=== PATIENT | male | born 1960 | race Caucasian/White ===

== ENCOUNTER 2022-02-06 20:04 | Inpatient (IN) ==
[~2022-02-06 20:04] MED LIST: ETOMIDATE 2 MG/ML 20 ML VIAL IV ONE; ROCURONIUM BROMIDE 10 MG/ML 5 ML VIAL IV ONE
[2022-02-06] MEDS ORDERED: CALCIUM GLUCONATE 1000 MG/60 ML NSS IV ONE (20:10)
[2022-02-06] MEDS ORDERED: SODIUM CHLORIDE 0.9% 1000ML 2,000 ML IV ONE (20:11)
[2022-02-06] MEDS ORDERED: CALCIUM GLUCONATE 1,000 MG/60 ML BAG IV STA (20:12)
[2022-02-06] MEDS ORDERED: INSULIN HUMAN REGULAR PER UNIT 10 UNITS in SYRINGE 9.9 ML IV STA (20:18)
[2022-02-06] MEDS ORDERED: ALBUTEROL 0.5% NEB SOLN 2.5 MG/0.5 ML VIAL NEB STA (20:18)
[2022-02-06] MEDS ORDERED: SODIUM BICARBONATE 8.4% 150 MEQ in DEXTROSE 5% 1,000 ML IV STA (20:18)
[2022-02-06] MEDS ORDERED: SODIUM BICARB 8.4% INJ 50 MEQ/50 ML SYR IV ONE (20:25)
[2022-02-06] MEDS ORDERED: LORazepam 2 MG/1 ML VIAL IV STA (20:28)
[2022-02-06 20:33] LABS: iSTAT Arterial Blood Gas HCO3 3 meg/L (19-24); iSTAT Arterial Blood Gas pCO2 13 mmHg (35-46); iSTAT Arterial Blood Gas pO2 137 mmHg (80-95); iSTAT Carbon Dioxide < 5 mmol/L (24-31); iSTAT Hematocrit 30 % (42-52); iSTAT Hemoglobin 10.2 g/dl (14.0-18.0); iSTAT Potassium 7.2 mmol/L (3.3-5.0); iSTAT Sodium 120 mmol/L (135-144)
[2022-02-06] MEDS ORDERED: NovoLIN-R INSULIN PER UNIT CHARGE ONE (20:55)
[2022-02-06 21:02] LABS: iSTAT Blood Urea Nitrogen 82 mg/dl (7-18); iSTAT Carbon Dioxide 8 mmol/L (24-31); iSTAT Chloride 98 mmol/L (101-112); iSTAT Creatinine 3.9 mg/dl (0.6-1.3); iSTAT Glucose > 700 mg/dl (70-99); iSTAT Hematocrit 23 % (42-52); iSTAT Hemoglobin 7.8 g/dl (14.0-18.0); iSTAT Potassium 6.4 mmol/L (3.3-5.0); iSTAT Sodium 128 mmol/L (135-144)
[2022-02-06 21:02] LABS: iSTAT Arterial Blood Gas HCO3 6 meg/L (19-24); iSTAT Arterial Blood Gas pCO2 24 mmHg (35-46); iSTAT Arterial Blood Gas pH 6.98 (7.35-7.45); iSTAT Arterial Blood Gas pO2 89 mmHg (80-95); iSTAT Carbon Dioxide 6 mmol/L (24-31); iSTAT Hematocrit 25 % (42-52); iSTAT Hemoglobin 8.5 g/dl (14.0-18.0); iSTAT Potassium 6.2 mmol/L (3.3-5.0); iSTAT Sodium 127 mmol/L (135-144)
[2022-02-06] MEDS ORDERED: NOREPINEPHRINE/D5W 8 MG/508 ML IV ONE (21:02)
[2022-02-06] MEDS ORDERED: OCTREOTIDE ACETATE 100 MCG in SYRINGE 9 ML IV STA (21:27)
[2022-02-06] MEDS ORDERED: STAT IV STA (21:27)
[2022-02-06] MEDS ORDERED: NORMOSOL-R 1,000 ML IV ONE (21:34)
[2022-02-06] MEDS ORDERED: STAT IV Infusion **Titration per Protocol STA ×3 (21:37→22:57)
[2022-02-06 21:42] LABS: Hemoglobin 8.8 g/dL (14.0-18.0); Mean Corpuscular Hgb Conc 32.6 g/dL (32-36); Mean Corpuscular Volume 98.2 fL (80-100); Mean Platelet Volume 11.2 fL (7.4-10.4); Platelet Count 246 K/uL (130-400); RDW Coefficient of Variation 13.4 % (11.5-14.5); RDW Standard Deviation 47.8 fL (36.4-46.3); Red Blood Count 2.75 M/uL (4.7-6.1); White Blood Count 23.42 K/uL (4.8-10.8)
--- NOTE | 2022-02-06 21:44 | History & Physical Report ---
Date of Service February 06, 2022 Assessment & Plan (1) GI bleed: (2) Metabolic encephalopathy: (3) Metabolic acidosis: (4) Type 2 diabetes mellitus: (5) Hyperosmolar hyperglycemic state (HHS): (6) Hypocalcemia: (7) Hyperkalemia: (8) Ventricular arrhythmia: (9) Septic shock: (10) Anemia: (11) Hypothermia: (12) TOD (acute kidney injury): (13) Acute respiratory failure with hypoxia: Plan: Assessment: 61 yo M Hx DM2 admitted for severe hypotension, septic shock, HHS, metabolic acidosis and encephalopathy, TOD, hyperkalemia, and concern for acute GIB. Plan: Neuro: Metabolic encephalopathy: On admission with decreased mentation, inability to protect airway. In the setting of HHS, undifferentiated shock, hyperammonemia. Lactulose 30 g PO x1 ordered, with repeat ammonia with a.m. labs. Care of HHS and shock as described below. CT head with evidence of chronic small vessel disease without evidence of intracranial hemorrhage or acute CVA. Ethyl alcohol, salicylate, and acetaminophen levels negative. Chronic pain: History of chronic back pain with scheduled and as needed use of oxycodone ER and IR. Resp: Acute hypoxic respiratory failure: Secondary to obtundation and inability to protect airway. Currently intubated. CT chest without contrast without evidence of pneumothorax or pleural effusion. Atelectasis and central bronchial thickening bilaterally suggest bronchitis. Cardiovascular: Wide-complex ventricular arrhythmia: On arrival to ER was noted to have wide-complex tachycardia on telemetry which was then confirmed on EKG. In the setting of significant hyperkalemia and metabolic acidosis. Treatment as such as described. Troponin 70084; continue to trend q6h. Echo ordered for AM. Fluids/Renal: TOD: Admission creatinine 3.29. In the setting of hypovolemia, HHS. Normosol for fluid repletion. Serial BMPs ordered. Blevins in place to measure strict intake and output. Hyperkalemia: Presenting potassium POC of 7.2. S/p insulin 10u IV, albuterol neb, calcium gluconate, bicarb gtt. Repeat K 4.9. Continue fluid repletion with Normosol. Serial EKGs and BMPs with potassium correction as necessary. Hypocalcemia: Ionized calcium 1.10. Status post calcium gluconate 1g IV x1. Serial BMP with repletion as necessary. GI/Nutrition: Acute GI bleed: With at least 1 episode of coffee-ground emesis earlier today per patient's friend. Patient with a history of alcohol use though no reported history of abuse. Hgb 8.8. Type and screen ordered. Transfuse if Hgb <7. Protonix and octreotide gtt started. Serial CBCs. GI consulted; appreciate recommendations. Endocrine: HHS: Presented with BSG >700, severe metabolic acidosis, elevated serum osmolality. Received insulin regular 10 units x 1, and is now on insulin gtt. Normosol ordered at 125 cc/hr. will need fluid adjustment based on potassium levels and BSG checks. Per , patient is non-adherent with his diabetic regimen at home. Home regimen includes Lantus 25 units daily with sliding scale insulin. A1c pending. Hyperglycemia management by ICU and pharmacy. Patient will need diabetic education while admitted. ID: Septic shock, hypothermia: On admission noted to have WBC count of 23.42 with left shift, tachycardia, tachypnea, significant hypotension; meeting SIRS criteria for septic shock. Also presented as hypothermic to 33C; currently undergoing warming. No clear evidence of infection on exam or CT head, chest, abdomen, pelvis. COVID-19, RSV, influenza negative. MRSA swab pending. Lactate and procalcitonin elevated. TSH normal. Cortisol level pending. Will initiate empiric antibiotics at this time; vancomycin/Zosyn, with de- escalation as able. Continue Levophed to maintain MAP >65. Heme: Anemia: Admission hemoglobin 8.8 with normocytic MCV; unknown baseline. Suspect GI bleed as source; evaluation of such as described above. Type and screen ordered; transfuse if hemoglobin <7. Vascular access: PIV Code status: FULL CODE FEN: NPO DVT ppx: Contraindicated in the setting of suspected acute GIB Disposition: Care per ICU 30 minutes of extended care time was spent coordinating patient's care including review of patient chart, gaining collateral information from family, and discussion with ER and wire puller provider. History of Present Illness Chief Complaint: metabolic acidosis, DKA/HHS Primary Care Provider: NO PCP 61-year-old male with past medical history significant for DM2 with no other known history presented to the ER due to somnolence and malaise. History is given by patient's friend and personal as well as patient's over the phone. According to patient's friend, patient was in his usual state of health yesterday. Overnight, he started to feel woozy and dizzy and in the morning reported that he had had a fall and a black tarry emesis. BSG was not checked at home prior to EMS arrival. On arrival to the ER patient was noted to be hypotensive 60s/30s, tachycardic, tachypneic, hypothermic to 33 C and hypoxic initially requiring nasal cannula, and ultimately intubated. Initial POC lab work revealed pH 6.99, PCO2 13, PO2 137, HCO3 3.2, sodium 120, K 7.2, BSG >700, hemoglobin 10.2. Patient received 1 L NSS, calcium gluconate 1g IV, albuterol 10 mg nebulizer x1, 10 units regular insulin, and 3 amps of bicarb and ulti mately bicarb drip. Type and screen ordered. ICU on-call provider made aware of patient. On my interview patient is intubated and therefore unable to provide any history. Repeat lab work with improvement in pH to ~7.1, K 4.9. Serum Hgb 8.8. Repeat vitals with BP 106/55. Patient's was able to describe that patient is "notoriously not good about using his insulin or controlling his sugars". His home regimen is Lantus 25 units daily with insulin sliding scale, which he often does not follow. He is also on atorvastatin for hyperlipidemia and extended release oxycodone for chronic pain. Allergies Allergy/AdvReac Type Severity Reaction Status Date / Time No Known Allergies Allergy Verified 02/06/22 21:32 Home Medications Medication Instructions Recorded Confirmed Type Medical Marijuana 1 dose DIRECTED PRN 02/06/22 02/06/22 History atorvastatin 10 mg tablet 0 mg PO DAILY 02/06/22 02/06/22 History coenzyme Q10 100 mg capsule 0 mg PO DAILY 02/06/22 02/06/22 History (CoQ-10) ibuprofen 200 mg tablet 400 - 600 mg PO DIRECTED PRN 02/06/22 02/06/22 History insulin glargine 100 unit/mL 0 unit SUBCUT DIRECTED 02/06/22 02/06/22 History subcutaneous solution (Lantus U-100 Insulin) insulin regular human 100 unit/mL 0 unit SUBCUT DIRECTED 02/06/22 02/06/22 History injection solution (Novolin R Regular U-100 Insulin) lisinopril 10 mg tablet 0 mg PO DAILY 02/06/22 02/06/22 History multivitamin 1 tab PO DAILY 02/06/22 02/06/22 History oxycodone 20 mg tablet,crush 20 mg PO BID PRN 02/06/22 02/06/22 History resistant,extended release 12 hr (OxyContin) pseudoephedrine HCl 120 mg 120 mg PO Q12H PRN 02/06/22 02/06/22 History tablet,extended release (Sudafed 12 Hour) quetiapine 25 mg tablet (Seroquel) 0 mg PO DAILY 02/06/22 02/06/22 History sertraline 25 mg tablet (Zoloft) 0 mg PO DAILY 02/06/22 02/06/22 History sildenafil 50 mg tablet (Viagra) 0 mg PO DAILY PRN 02/06/22 02/06/22 History vitamin B complex 1 tab PO DAILY 02/06/22 02/06/22 History Past Med/Surg History Medical History Chronic pain HLD (hyperlipidemia) Type 2 diabetes mellitus Social History Smoking Status: Never smoker Do You Dip or Chew Tobacco: No; Hx Alcohol Use: Yes Alcohol type: hard liquor Hx Substance Use: Yes Last Used Substance Other:: months ago Substance Use Type Other:: medical Preferred Language: Mongolian Communication Ability: Effective Under Trimmer Required: No Beliefs That Will Affect Care: None Current Living Situation: Spouse Feels Safe at Home: Yes Safety Concerns: Feels Safe At This Time Assistive Devices: Glasses Review of Systems Review of Systems: Unobtainable due to endotracheal tube and Unobtainable due to reduced consciousness Physical Exam Constitutional: + ill appearing and + thin Eyes: PERRL, conjunctivae normal, anicteric sclerae ENMT: Noted to have [id number] material on teeth and in oropharynx Neck: Patient in c-collar Respiratory: intubated, tachypneic, rhonchi diffuse throughout Cardiovascular: regular rhythm, tachycardic, no murmurs Gastrointestinal (Abdomen): normal bowel sounds, soft, nontender, no hepatosplenomegaly Musculoskeletal: no cyanosis or clubbing Skin: no rashes, warm and dry Neurologic: moves all extremities Patient is intubated so unable to assess orientation Results & Data Results & Data ([facility]) Vital Signs (Past 12 Hours) Vital Signs Temp Pulse Pulse Resp BP Pulse Ox 02/06/22 21:30 116 H 30 H 106/55 L 100 02/06/22 21:24 113 H 30 H 92/50 L 100 02/06/22 21:23 113 H 30 H 92/53 L 100 02/06/22 21:22 112 H 30 H 90/53 L 100 02/06/22 21:20 111 H 20 86/50 L 100 02/06/22 21:18 109 H 20 80/51 L 100 02/06/22 21:16 108 H 20 78/49 L 02/06/22 21:15 108 H 21 02/06/22 21:14 107 H 26 H 77/47 L 100 02/06/22 21:12 106 H 25 H 67/41 L 100 02/06/22 21:11 103 H 20 71/43 L 02/06/22 21:10 105 H 12 70/47 L 02/06/22 21:08 107 H 12 71/45 L 02/06/22 21:06 107 H 12 75/49 L 02/06/22 21:05 103 H 12 68/50 L 02/06/22 21:04 99 H 12 67/36 L 02/06/22 21:03 104 H 12 63/45 L 02/06/22 21:01 105 H 24 68/40 L 02/06/22 21:00 104 H 28 H 02/06/22 20:45 109 H 26 H 72 L 02/06/22 20:30 108 H 25 H 02/06/22 20:28 110 H 25 H 97 02/06/22 20:26 111 H 26 H 85/46 L 02/06/22 20:10 33.4 C L 115 H 26 H 85/46 L 85 L 02/06/22 20:09 114 H 26 H 79/54 L Code Status & VTE Plan VTE Prophylaxis Plan VTE Prophylaxis will be ordered: No Supervising Physician Co-Signing Physician Notes Patient seen and examined, chart reviewed, case discussed with Dr. Nichols and I agree with the assessment and plan as above Resident Activity Tracking Resident Involvement: Resident Care Provided Care Provided: Adult Hospital Medicine
[2022-02-06 21:50] LABS: INR 1.1 (0.9-1.1); Partial Thromboplastin Ratio 1.1; Partial Thromboplastin Time 30.2 Seconds (21.0-31.0); Prothrombin Time 11.3 Seconds (9.0-12.0)
[2022-02-06] MEDS ORDERED: VANCOMYCIN CONSULT ACTIVE PRN (22:00)
[2022-02-06] MEDS ORDERED: VANCOMYCIN HCL 1,500 MG in SODIUM CHLORIDE 0.9% 500 ML IV ONE (22:00)
[2022-02-06] MEDS ORDERED: PIPERACILLIN/TAZOBACTAM 4.5 GM/120 ML BAG IV ONE (22:00)
[2022-02-06 22:01] LABS: Acetaminophen < 3 ug/ml (10-30); Salicylate < 3.0 mg/dl (3.0-30)
[2022-02-06] MEDS ORDERED: LACTULOSE SYRUP 30 GM/45 ML UDP PO STA (22:03)
[2022-02-06 22:09] LABS: Alanine Aminotransferase 25 U/L (7-52); Albumin Globulin Ratio 1.4 (0.9-2); Albumin Level 2.5 gm/dl (3.4-5.0); Alkaline Phosphatase 67 U/L (34-104); Anion Gap 30 (3-11); Aspartate Aminotransferase 52 U/L (13-39); BUN Creatinine Ratio 22.2 (10-20); Bilirubin,Total 0.3 mg/dl (0.2-1.0); Blood Urea Nitrogen 73 mg/dl (6-23); Calcium 6.5 mg/dl (8.5-10.1); Carbon Dioxide 15 mmol/L (21-32); Chloride 89 mmol/L (98-107); Creatine Kinase 687 U/L (30-223); Est GFR (African American) 22.2 ml/min; Est GFR (Non-African American) 19.2 ml/min; Globulin 1.8 gm/dl (2.5-4.0); Magnesium 2.8 mg/dl (1.7-2.4); Phosphorus 10.3 mg/dl (2.5-4.9); Potassium 4.9 mmol/L (3.5-5.1); Sodium 134 mmol/L (136-145); Total Protein 4.3 gm/dl (6.0-8.3); Troponin I High Sensitivity 15916.7 pg/ml (0-20)
[2022-02-06 22:13] LABS: Glucose 1439 mg/dl (70-99(Fasting))
[2022-02-06] MEDS ORDERED: GLUCAGON FOR INJ 1 MG VIAL SQ PRN (22:16)
[2022-02-06] MEDS ORDERED: STAT INSULIN DRIP STA (22:16)
[2022-02-06] MEDS ORDERED: GLUCOSE 40% GEL 15 GM TUBE PO PRN ×2 (22:16→22:30)
[2022-02-06] MEDS ORDERED: GLUCOSE 10 TABS/TUBE PO PRN ×2 (22:16→22:30)
[2022-02-06] MEDS ORDERED: CARBOHYDRATES FOR HYPOGLYCEMIA PO PRN ×2 (22:16→22:30)
[2022-02-06 22:21] LABS: Basophils # (auto) 0.03 K/uL (0-0.2); Basophils % (auto) 0.1 %; Eosinophils # (auto) 0.01 K/uL (0-0.5); Immature Granulocytes # (auto) 0.14 K/uL (0.00-0.02); Immature Granulocytes % (auto) 0.6 %; Lymphocytes # (auto) 1.22 K/uL (1.2-3.4); Lymphocytes % (auto) 5.2 %; Monocytes # (auto) 0.23 K/uL (0.11-0.59); Neutrophils # (auto) 21.79 K/uL (1.4-6.5); Neutrophils % (auto) 93.1 %; Toxic Vacuolation 1+
[2022-02-06] MEDS ORDERED: GLUCAGON FOR INJ 1 MG VIAL IM PRN (22:30)
[2022-02-06] MEDS ORDERED: DEXTROSE 50% 50 ML SYRINGE IV PRN (22:30)
[2022-02-06] MEDS ORDERED: INSULIN HUMAN REGULAR BOLUS IV ONE (22:30)
[2022-02-06] MEDS: OCTREOTIDE ACETATE 500mcg / D5W 100mL @50mcg/hr IV SCH (22:33)
[2022-02-06] MEDS: INSULIN REGULAR 250 UNITS in SODIUM CHLORIDE 0.9% 247.5 ML IV SCH (22:39)
[2022-02-06] MEDS: NOREPINEPHRINE/D5W 8 MG/508 ML BAG IV SCH (23:03)
[2022-02-06 23:12] LABS: Influenza A virus by PCR Negative (Neg); Influenza B virus by PCR Negative (Neg); RSV by PCR Negative (Neg); SARS CoV2 RNA(COVID-19) InHosp NEGATIVE (Negative)
--- NOTE | 2022-02-06 23:29 | Emergency Department Note ---
History of Present Illness General Chief complaint: Altered Mental Status Stated complaint: Hyperglycemia Time Seen by Provider: 02/06/22 20:09 Source: EMS Limitations: altered mental status History of Present Illness Provider complaint: Altered mental status 61-year-old male arrives via EMS for altered mental status. Per EMS when they arrived the patient was unresponsive and his blood pressure was 60/30. His glucose was critical high. EMS reports that the patient's friend was there and denies any alcohol abuse. 500 cc normal saline was given to the patient via EMS and EMS reports the patient's blood pressure and mental status improved with this. Home Medications Medication Instructions Recorded Confirmed Type Medical Marijuana 1 dose DIRECTED PRN 02/06/22 02/06/22 History atorvastatin 10 mg tablet 0 mg PO DAILY 02/06/22 02/06/22 History coenzyme Q10 100 mg capsule 0 mg PO DAILY 02/06/22 02/06/22 History (CoQ-10) ibuprofen 200 mg tablet 400 - 600 mg PO DIRECTED PRN 02/06/22 02/06/22 History insulin glargine 100 unit/mL 0 unit SUBCUT DIRECTED 02/06/22 02/06/22 History subcutaneous solution (Lantus U-100 Insulin) insulin regular human 100 unit/mL 0 unit SUBCUT DIRECTED 02/06/22 02/06/22 History injection solution (Novolin R Regular U-100 Insulin) lisinopril 10 mg tablet 0 mg PO DAILY 02/06/22 02/06/22 History multivitamin 1 tab PO DAILY 02/06/22 02/06/22 History oxycodone 20 mg tablet,crush 20 mg PO BID PRN 02/06/22 02/06/22 History resistant,extended release 12 hr (OxyContin) pseudoephedrine HCl 120 mg 120 mg PO Q12H PRN 02/06/22 02/06/22 History tablet,extended release (Sudafed 12 Hour) quetiapine 25 mg tablet (Seroquel) 0 mg PO DAILY 02/06/22 02/06/22 History sertraline 25 mg tablet (Zoloft) 0 mg PO DAILY 02/06/22 02/06/22 History sildenafil 50 mg tablet (Viagra) 0 mg PO DAILY PRN 02/06/22 02/06/22 History vitamin B complex 1 tab PO DAILY 02/06/22 02/06/22 History Allergies Allergy/AdvReac Type Severity Reaction Status Date / Time No Known Allergies Allergy Verified 02/06/22 21:32 Past Med/Surg History Medical History (Updated 02/06/22 @ 23:46 by Argelia Nichols DO) Chronic pain HLD (hyperlipidemia) Type 2 diabetes mellitus Social History Smoking Status: Unknown if ever smoked Review of Systems Unobtainable due to cognitive status Physical Exam Vital Signs Vital Signs - 24 hr 02/06/22 20:09 02/06/22 20:10 02/06/22 20:26 Temperature Temperature Source Pulse Rate 114 H 115 H 111 H Pulse Rate [Finger] Pulse Rate from SpO2 Sensor Respiratory Rate 26 H 26 H 26 H Respiratory Effort / Characteristics Respiratory Depth Shallow Blood Pressure 79/54 L 85/46 L 85/46 L Blood Pressure Mean 62 59 59 Pulse Oximetry 85 L Oxygen Delivery Method Nasal Cannula Oxygen Flow Rate 4 Fraction of Inspired Oxygen Sepsis Recent Fever Within 48 Hours No Sepsis New/Unexplained Change in Mental Status Yes Sepsis Action Taken by Nursing Physician Notified Arterial BP Systolic Arterial BP Diastolic Arterial BP Mean Arterial Pulse Rate End-Tidal CO2 02/06/22 20:28 02/06/22 20:30 02/06/22 20:45 Temperature Temperature Source Pulse Rate 108 H 109 H Pulse Rate [Finger] 110 H Pulse Rate from SpO2 Sensor Respiratory Rate 25 H 25 H 26 H Respiratory Effort / Characteristics Spontaneous Respiratory Depth Blood Pressure Blood Pressure Mean Pulse Oximetry 97 72 L Oxygen Delivery Method Room Air Nasal Cannula Oxygen Flow Rate 4 Fraction of Inspired Oxygen Sepsis Recent Fever Within 48 Hours Sepsis New/Unexplained Change in Mental Status Sepsis Action Taken by Nursing Arterial BP Systolic Arterial BP Diastolic Arterial BP Mean Arterial Pulse Rate End-Tidal CO2 02/06/22 20:50 02/06/22 21:00 02/06/22 21:01 Temperature 33.4 C L Temperature Source Rectal Pulse Rate 104 H 105 H Pulse Rate [Finger] Pulse Rate from SpO2 Sensor Respiratory Rate 28 H 24 Respiratory Effort / Characteristics Respiratory Depth Blood Pressure 68/40 L Blood Pressure Mean 49 Pulse Oximetry Oxygen Delivery Method Oxygen Flow Rate Fraction of Inspired Oxygen Sepsis Recent Fever Within 48 Hours Sepsis New/Unexplained Change in Mental Status Sepsis Action Taken by Nursing Arterial BP Systolic Arterial BP Diastolic Arterial BP Mean Arterial Pulse Rate End-Tidal CO2 02/06/22 21:03 02/06/22 21:04 02/06/22 21:05 Temperature Temperature Source Pulse Rate 104 H 99 H 103 H Pulse Rate [Finger] Pulse Rate from SpO2 Sensor Respiratory Rate 12 12 12 Respiratory Effort / Characteristics Respiratory Depth Blood Pressure 63/45 L 67/36 L 68/50 L Blood Pressure Mean 51 46 56 Pulse Oximetry Oxygen Delivery Method Ambu-Bag Ambu-Bag Oxygen Flow Rate Fraction of Inspired Oxygen Sepsis Recent Fever Within 48 Hours Sepsis New/Unexplained Change in Mental Status Sepsis Action Taken by Nursing Arterial BP Systolic Arterial BP Diastolic Arterial BP Mean Arterial Pulse Rate End-Tidal CO2 02/06/22 21:06 02/06/22 21:08 02/06/22 21:10 Temperature Temperature Source Pulse Rate 107 H 107 H 105 H Pulse Rate [Finger] Pulse Rate from SpO2 Sensor Respiratory Rate 12 12 12 Respiratory Effort / Characteristics Respiratory Depth Blood Pressure 75/49 L 71/45 L 70/47 L Blood Pressure Mean 57 53 54 Pulse Oximetry Oxygen Delivery Method Ambu-Bag Oxygen Flow Rate Fraction of Inspired Oxygen Sepsis Recent Fever Within 48 Hours Sepsis New/Unexplained Change in Mental Status Sepsis Action Taken by Nursing Arterial BP Systolic Arterial BP Diastolic Arterial BP Mean Arterial Pulse Rate End-Tidal CO2 02/06/22 21:11 02/06/22 21:12 02/06/22 21:14 Temperature Temperature Source Pulse Rate 103 H 106 H 107 H Pulse Rate [Finger] Pulse Rate from SpO2 Sensor Respiratory Rate 20 25 H 26 H Respiratory Effort / Characteristics Respiratory Depth Blood Pressure 71/43 L 67/41 L 77/47 L Blood Pressure Mean 52 49 57 Pulse Oximetry 100 100 Oxygen Delivery Method Ambu-Bag Mechanical Vent Oxygen Flow Rate Fraction of Inspired Oxygen Sepsis Recent Fever Within 48 Hours Sepsis New/Unexplained Change in Mental Status Sepsis Action Taken by Nursing Arterial BP Systolic Arterial BP Diastolic Arterial BP Mean Arterial Pulse Rate End-Tidal CO2 02/06/22 21:15 02/06/22 21:16 02/06/22 21:18 Temperature Temperature Source Pulse Rate 115 H 108 H 109 H Pulse Rate [Finger] Pulse Rate from SpO2 Sensor 110 H Respiratory Rate 30 H 20 20 Respiratory Effort / Characteristics Respiratory Depth Blood Pressure 78/49 L 80/51 L Blood Pressure Mean 58 60 Pulse Oximetry 100 100 Oxygen Delivery Method Mechanical Vent Oxygen Flow Rate Fraction of Inspired Oxygen 50 Sepsis Recent Fever Within 48 Hours Sepsis New/Unexplained Change in Mental Status Sepsis Action Taken by Nursing Arterial BP Systolic Arterial BP Diastolic Arterial BP Mean Arterial Pulse Rate End-Tidal CO2 18 02/06/22 21:20 02/06/22 21:22 02/06/22 21:23 Temperature Temperature Source Pulse Rate 111 H 112 H 113 H Pulse Rate [Finger] Pulse Rate from SpO2 Sensor 112 H 112 H 114 H Respiratory Rate 20 30 H 30 H Respiratory Effort / Characteristics Respiratory Depth Blood Pressure 86/50 L 90/53 L 92/53 L Blood Pressure Mean 62 65 66 Pulse Oximetry 100 100 100 Oxygen Delivery Method Mechanical Vent Mechanical Vent Oxygen Flow Rate Fraction of Inspired Oxygen Sepsis Recent Fever Within 48 Hours Sepsis New/Unexplained Change in Mental Status Sepsis Action Taken by Nursing Arterial BP Systolic Arterial BP Diastolic Arterial BP Mean Arterial Pulse Rate End-Tidal CO2 21 21 02/06/22 21:24 02/06/22 21:30 02/06/22 21:32 Temperature Temperature Source Pulse Rate 113 H 116 H 117 H Pulse Rate [Finger] Pulse Rate from SpO2 Sensor 114 H Respiratory Rate 30 H 30 H 30 H Respiratory Effort / Characteristics Respiratory Depth Blood Pressure 92/50 L 106/55 L 109/55 L Blood Pressure Mean 64 72 73 Pulse Oximetry 100 100 100 Oxygen Delivery Method Mechanical Vent Mechanical Vent Mechanical Vent Oxygen Flow Rate Fraction of Inspired Oxygen Sepsis Recent Fever Within 48 Hours Sepsis New/Unexplained Change in Mental Status Sepsis Action Taken by Nursing Arterial BP Systolic Arterial BP Diastolic Arterial BP Mean Arterial Pulse Rate End-Tidal CO2 21 21 20 02/06/22 21:34 02/06/22 21:35 02/06/22 21:36 Temperature Temperature Source Pulse Rate 117 H 117 H 117 H Pulse Rate [Finger] Pulse Rate from SpO2 Sensor Respiratory Rate 30 H 30 H 30 H Respiratory Effort / Characteristics Respiratory Depth Blood Pressure 111/56 L Blood Pressure Mean 74 Pulse Oximetry 100 100 Oxygen Delivery Method Mechanical Vent Mechanical Vent Oxygen Flow Rate Fraction of Inspired Oxygen Sepsis Recent Fever Within 48 Hours Sepsis New/Unexplained Change in Mental Status Sepsis Action Taken by Nursing Arterial BP Systolic 111 300 Arterial BP Diastolic 36 137 Arterial BP Mean 56 164 Arterial Pulse Rate 117 H 40 L End-Tidal CO2 20 20 20 02/06/22 21:38 02/06/22 21:40 02/06/22 21:42 Temperature Temperature Source Pulse Rate 118 H 114 H 120 H Pulse Rate [Finger] Pulse Rate from SpO2 Sensor Respiratory Rate 30 H 30 H 30 H Respiratory Effort / Characteristics Respiratory Depth Blood Pressure Blood Pressure Mean Pulse Oximetry 100 Oxygen Delivery Method Mechanical Vent Oxygen Flow Rate Fraction of Inspired Oxygen Sepsis Recent Fever Within 48 Hours Sepsis New/Unexplained Change in Mental Status Sepsis Action Taken by Nursing Arterial BP Systolic 121 120 136 Arterial BP Diastolic 45 47 51 Arterial BP Mean 65 66 73 Arterial Pulse Rate 118 H 114 H 120 H End-Tidal CO2 19 30 22 02/06/22 21:44 02/06/22 21:45 02/06/22 22:13 Temperature Temperature Source Pulse Rate 120 H 120 H 120 H Pulse Rate [Finger] Pulse Rate from SpO2 Sensor 122 H Respiratory Rate 30 H 30 H 30 H Respiratory Effort / Characteristics Respiratory Depth Blood Pressure Blood Pressure Mean Pulse Oximetry 100 100 Oxygen Delivery Method Mechanical Vent Oxygen Flow Rate Fraction of Inspired Oxygen Sepsis Recent Fever Within 48 Hours Sepsis New/Unexplained Change in Mental Status Sepsis Action Taken by Nursing Arterial BP Systolic 129 126 163 Arterial BP Diastolic 49 48 56 Arterial BP Mean 70 69 84 Arterial Pulse Rate 120 H 120 H 120 H End-Tidal CO2 21 21 19 02/06/22 22:15 02/06/22 22:20 02/06/22 22:25 Temperature Temperature Source Pulse Rate 119 H 117 H 116 H Pulse Rate [Finger] Pulse Rate from SpO2 Sensor 119 H 117 H 116 H Respiratory Rate 30 H 30 H 30 H Respiratory Effort / Characteristics Respiratory Depth Blood Pressure Blood Pressure Mean Pulse Oximetry 100 100 100 Oxygen Delivery Method Mechanical Vent Mechanical Vent Oxygen Flow Rate Fraction of Inspired Oxygen Sepsis Recent Fever Within 48 Hours Sepsis New/Unexplained Change in Mental Status Sepsis Action Taken by Nursing Arterial BP Systolic 161 157 156 Arterial BP Diastolic 55 54 54 Arterial BP Mean 82 80 80 Arterial Pulse Rate 119 H 117 H 116 H End-Tidal CO2 19 19 18 02/06/22 22:30 02/06/22 22:35 02/06/22 22:40 Temperature Temperature Source Pulse Rate 116 H 117 H 115 H Pulse Rate [Finger] Pulse Rate from SpO2 Sensor 116 H 117 H 115 H Respiratory Rate 30 H 30 H 30 H Respiratory Effort / Characteristics Respiratory Depth Blood Pressure Blood Pressure Mean Pulse Oximetry 100 100 100 Oxygen Delivery Method Mechanical Vent Oxygen Flow Rate Fraction of Inspired Oxygen Sepsis Recent Fever Within 48 Hours Sepsis New/Unexplained Change in Mental Status Sepsis Action Taken by Nursing Arterial BP Systolic 157 165 188 Arterial BP Diastolic 54 57 63 Arterial BP Mean 80 84 95 Arterial Pulse Rate 116 H 117 H 115 H End-Tidal CO2 19 18 18 02/06/22 22:45 02/06/22 22:50 02/06/22 22:55 Temperature Temperature Source Pulse Rate 115 H 116 H 115 H Pulse Rate [Finger] Pulse Rate from SpO2 Sensor 115 H 116 H 115 H Respiratory Rate 30 H 30 H 30 H Respiratory Effort / Characteristics Respiratory Depth Blood Pressure Blood Pressure Mean Pulse Oximetry 100 100 100 Oxygen Delivery Method Mechanical Vent Oxygen Flow Rate Fraction of Inspired Oxygen Sepsis Recent Fever Within 48 Hours Sepsis New/Unexplained Change in Mental Status Sepsis Action Taken by Nursing Arterial BP Systolic 183 183 174 Arterial BP Diastolic 61 60 59 Arterial BP Mean 91 90 88 Arterial Pulse Rate 115 H 116 H 115 H End-Tidal CO2 18 18 19 02/06/22 23:00 02/06/22 23:05 02/06/22 23:10 Temperature 33.8 C L Temperature Source Rectal Pulse Rate 115 H 115 H 114 H Pulse Rate [Finger] Pulse Rate from SpO2 Sensor 115 H 115 H 114 H Respiratory Rate 30 H 30 H 30 H Respiratory Effort / Characteristics Respiratory Depth Blood Pressure Blood Pressure Mean Pulse Oximetry 100 100 100 Oxygen Delivery Method Mechanical Vent Oxygen Flow Rate Fraction of Inspired Oxygen Sepsis Recent Fever Within 48 Hours Sepsis New/Unexplained Change in Mental Status Sepsis Action Taken by Nursing Arterial BP Systolic 167 168 163 Arterial BP Diastolic 58 58 56 Arterial BP Mean 85 85 83 Arterial Pulse Rate 114 H 115 H 114 H End-Tidal CO2 18 18 18 02/06/22 23:15 02/06/22 23:20 02/06/22 23:25 Temperature Temperature Source Pulse Rate 115 H 115 H 116 H Pulse Rate [Finger] Pulse Rate from SpO2 Sensor 115 H 115 H 116 H Respiratory Rate 30 H 30 H 30 H Respiratory Effort / Characteristics Respiratory Depth Blood Pressure Blood Pressure Mean Pulse Oximetry 100 100 100 Oxygen Delivery Method Oxygen Flow Rate Fraction of Inspired Oxygen Sepsis Recent Fever Within 48 Hours Sepsis New/Unexplained Change in Mental Status Sepsis Action Taken by Nursing Arterial BP Systolic 163 160 170 Arterial BP Diastolic 56 55 57 Arterial BP Mean 82 81 83 Arterial Pulse Rate 115 H 115 H 116 H End-Tidal CO2 18 18 18 Physical Exam GENERAL: Patient in extreme distress. HENT: Exam performed. - Head: Normocephalic and atraumatic. - Right Ear: External ear normal. No mastoid tenderness. - Left Ear: External ear normal. No mastoid tenderness. - Mouth/Throat: The oropharynx is dry with what appears to be coffee-ground emesis in the mouth. EYES: Pupils 2 mm and reactive. CV: Tachycardic rate, regular rhythm, normal heart sounds and intact distal pulses. There is no peripheral edema. Palpable radial pulses bue. PULM/CHEST: Tachypneic Kussmaul breathing rhonchi bilaterally. ABD: The abdomen is soft. MUSC/SKEL: Pelvis stable. NEURO: GCS eye subscore is 4. GCS verbal subscore is 3. GCS motor subscore is 6. SKIN: Multiple ecchymotic areas of the patient's bilateral lower extremities. Procedures Intubation Time out performed: Yes sedative: Etomidate Mg Given: 20 paralytic: Rocuronium Mg Given: 70 Laryngoscope: other (glide scope) ET Tube Size: 7 ET Tube Uncuffed: No Tube Secured Depth (cm): 25 Tube Secured Location: lips Tube Placement Confirmation: visualized tube passing through cords, equal breath sounds bilaterally, no breath sounds over epigastrium and confirmation by capnometry Patient Tolerated Procedure: well Intubation Complications: none Course Course 2009: The patient was evaluated in room A1. A complete history and physical exam was performed Cardiac monitoring: An order was placed for continuous cardiac monitoring. The monitor shows a rate of 110 with sinus tachycardia rhythm Administered Medications Sodium Bicarbonate 150 meq/ (Dextrose) 1,150 mls @ 290 mls/hr IV .Q3H58M STA Stop: 02/07/22 00:15 Last Admin: 02/06/22 21:06 Dose: 290 mls/hr Documented by: [id number] Octreotide Acetate 500 mcg/ (Dextrose) 100.5 mls @ 10.05 mls/hr IV .Q10H [facility] Stop: 03/08/22 21:59 Last Admin: 02/06/22 22:33 Dose: 50 mcg/hr, 10.1 mls/hr Documented by: [id number] Vancomycin HCl 1,500 mg/ (Sodium Chloride) 530 mls @ 200 mls/hr IV NOW ONE Stop: 02/07/22 00:38 Last Admin: 02/06/22 22:45 Dose: 200 mls/hr Documented by: [id number] Insulin Human Regular 250 (units/ Sodium Chloride) 250 mls @ 7.3 mls/hr IV .Q24H TAMRA; Protocol Stop: 03/08/22 22:29 Last Admin: 02/06/22 22:39 Dose: 7.3 units/hr, 7.3 mls/hr Documented by: [id number] Cosigned by: [id number] Norepinephrine Bitartrate (Levophed/D5w) 8 mg in 508 mls @ 13.868 mls/hr IV .Q24H TAMRA; Protocol Stop: 03/08/22 22:59 Last Titration: 02/06/22 23:24 Dose: 0.16 mcg/kg/min, 45 mls/hr Documented by: [id number] Admin: 02/06/22 23:03 Dose: 0.2 mcg/kg/min, 55 mls/hr Documented by: [id number] Cosigned by: [id number] Discontinued Medications Albuterol (Albuterol 0.5% Neb Soln 2.5 Mg/0.5 Ml Vial) 10 mg NEB NOW STA Stop: 02/06/22 20:19 Last Admin: 02/06/22 20:25 Dose: 10 mg Documented by: [id number] Calcium Gluconate (Calcium Gluconate 1000 Mg/60 Ml Nss) Confirm Administered Dose 1,000 mg IV .STK-MED ONE Stop: 02/06/22 20:11 Last Admin: 02/06/22 20:34 Dose: Not Given Documented by: [id number] Sodium Chloride (Nss 1000ml) 2,000 mls @ 999 mls/hr IV .Q2H1M ONE Stop: 02/06/22 22:11 Last Admin: 02/06/22 20:15 Dose: 999 mls/hr Documented by: [id number] Calcium Gluconate () 1,000 mg in 60 mls @ 240 mls/hr IV NOW STA Stop: 02/06/22 20:26 Last Infusion: 02/06/22 20:25 Dose: 0 mls/hr Documented by: [id number] Admin: 02/06/22 20:20 Dose: 240 mls/hr Documented by: [id number] Insulin Human Regular 10 units (/ Syringe) 9.9 mls @ 3 mls/sec IV ONE STA Stop: 02/06/22 20:19 Last Admin: 02/06/22 21:00 Dose: 3 mls/sec Documented by: [id number] Cosigned by: [id number] Octreotide Acetate 100 mcg/ (Syringe) 10 mls @ 3 mls/min IV NOW STA Stop: 02/06/22 21:30 Last Admin: 02/06/22 22:32 Dose: 3 mls/min Documented by: [id number] Insulin Human Regular (Novolin-R Insulin Per Unit Charge) Confirm Administered Dose 10 units .ROUTE .STK-MED ONE Stop: 02/06/22 20:56 Last Admin: 02/06/22 21:24 Dose: Not Given Documented by: [id number] Lorazepam (Lorazepam 2 Mg/1 Ml Vial) 0.5 mg IV NOW STA Stop: 02/06/22 20:29 Last Admin: 02/06/22 20:45 Dose: 0.5 mg Documented by: [id number] Norepinephrine Bitartrate (Norepinephrine/D5w 8 Mg/508 Ml) Confirm Administered Dose 8 mg IV .STK-MED ONE Stop: 02/06/22 21:03 Last Admin: 02/06/22 21:04 Dose: 8 mg Documented by: [id number] Sodium Bicarbonate (Sodium Bicarb 8.4% Inj 50 Meq/50 Ml Syr) Confirm Administered Dose 50 meq IV .STK-MED ONE Stop: 02/06/22 20:26 Last Admin: 02/06/22 20:33 Dose: 50 meq Documented by: [id number] Critical Care Time Critical Care Time: Yes Total Critical Care Time: 120 I have personally spent greater than 120 minutes of critical care time in the direct management of this patient. This includes bedside care, interpretation of diagnostic studies, and testing, discussion with consultants, patient, and family members, and other required patient management activities. This 120 minutes is in excess of all separately billable procedures. Medical Decision Making Laboratory Data Result diagrams: 02/06/22 21:29 02/06/22 21:29 Lab Results 02/06/22 02/06/22 02/06/22 Range/Units 20:17 20:19 20:39 WBC (4.8-10.8) K/uL RBC (4.7-6.1) M/uL Hgb (14.0-18.0) g/dL POC Hgb 10.2 L (14.0-18.0) g/dl Hct (42-52) % POC Hct 30 L (42-52) % MCV (80-100) fL MCH (25-34) pg MCHC (32-36) g/dL RDW Std Deviation (36.4-46.3) fL RDW Coeff of Denise (11.5-14.5) % Plt Count (130-400) K/uL MPV (7.4-10.4) fL Immature Gran % (Auto) % Neut % (Auto) % Lymph % (Auto) % [place] % (Auto) % Eos % (Auto) % Baso % (Auto) % Neut # (Auto) (1.4-6.5) K/uL Lymph # (Auto) (1.2-3.4) K/uL [place] # (Auto) (0.11-0.59) K/uL Eos # (Auto) (0-0.5) K/uL Baso # (Auto) (0-0.2) K/uL Immature Gran # (Auto) (0.00-0.02) K/uL Toxic Vacuolation PT (9.0-12.0) Seconds INR (0.9-1.1) APTT (21.0-31.0) Seconds PTT Ratio POC pH 7.00 L* (7.35-7.45) POC pCO2 13 L (35-46) mmHg POC pO2 137 H (80-95) mmHg POC HCO3 3 L (19-24) sugey/L POC Total CO2 < 5 L* (24-31) mmol/L POC Base Excess -28.0 L (-9-1.8) sugey/L POC ABG O2 Sat 97.0 H (90-95) % POC Sodium 120 L (135-144) mmol/L Sodium POC Potassium 7.2 H* (3.3-5.0) mmol/L Potassium POC Chloride (101-112) mmol/L Chloride Carbon Dioxide Anion Gap POC Anion Gap (16-25) mmol/L POC BUN (7-18) mg/dl BUN Creatinine POC Creatinine (0.6-1.3) mg/dl Est Cr Clr Drug Dosing Est GFR ( Amer) Est GFR (Non-Af Amer) BUN/Creatinine Ratio Glucose POC Glucose 342 H* (70-99) mg/dl POC Glucose (other) (70-99) mg/dl Osmolality Lactate Calcium POC Ioniz Calcium [place]ha (1.12-1.32) mmol/l Phosphorus (2.5-4.9) mg/dl Magnesium Total Bilirubin AST ALT Alkaline Phosphatase Ammonia Total Creatine Kinase (30-223) U/L Troponin I High Sens Total Protein Albumin Globulin Albumin/Globulin Ratio Procalcitonin Cancelled TSH (0.300-4.500) uIu/ml Salicylates Acetaminophen Ethyl Alcohol mg/dL SARS-CoV-2 (PCR) (Negative) Influenza Type A (PCR) (Neg) Influenza Type B (PCR) (Neg) RSV (RT-PCR) (Neg) SARS-CoV-2 RNA (BERTIN) Blood Type Antibody Screen 02/06/22 02/06/22 02/06/22 Range/Units 20:39 20:39 20:39 WBC (4.8-10.8) K/uL RBC (4.7-6.1) M/uL Hgb (14.0-18.0) g/dL POC Hgb (14.0-18.0) g/dl Hct (42-52) % POC Hct (42-52) % MCV (80-100) fL MCH (25-34) pg MCHC (32-36) g/dL RDW Std Deviation (36.4-46.3) fL RDW Coeff of Denise (11.5-14.5) % Plt Count (130-400) K/uL MPV (7.4-10.4) fL Immature Gran % (Auto) % Neut % (Auto) % Lymph % (Auto) % [place] % (Auto) % Eos % (Auto) % Baso % (Auto) % Neut # (Auto) (1.4-6.5) K/uL Lymph # (Auto) (1.2-3.4) K/uL [place] # (Auto) (0.11-0.59) K/uL Eos # (Auto) (0-0.5) K/uL Baso # (Auto) (0-0.2) K/uL Immature Gran # (Auto) (0.00-0.02) K/uL Toxic Vacuolation PT (9.0-12.0) Seconds INR (0.9-1.1) APTT (21.0-31.0) Seconds PTT Ratio POC pH (7.35-7.45) POC pCO2 (35-46) mmHg POC pO2 (80-95) mmHg POC HCO3 (19-24) sugey/L POC Total CO2 (24-31) mmol/L POC Base Excess (-9-1.8) sugey/L POC ABG O2 Sat (90-95) % POC Sodium (135-144) mmol/L Sodium Cancelled POC Potassium (3.3-5.0) mmol/L Potassium Cancelled POC Chloride (101-112) mmol/L Chloride Cancelled Carbon Dioxide Cancelled Anion Gap Cancelled POC Anion Gap (16-25) mmol/L POC BUN (7-18) mg/dl BUN Cancelled Creatinine Cancelled POC Creatinine (0.6-1.3) mg/dl Est Cr Clr Drug Dosing Cancelled Est GFR ( Amer) Cancelled Est GFR (Non-Af Amer) Cancelled BUN/Creatinine Ratio Cancelled Glucose Cancelled POC Glucose (70-99) mg/dl POC Glucose (other) (70-99) mg/dl Osmolality Lactate Cancelled Calcium Cancelled POC Ioniz Calcium [place] (1.12-1.32) mmol/l Phosphorus (2.5-4.9) mg/dl Magnesium Cancelled Total Bilirubin Cancelled AST Cancelled ALT Cancelled Alkaline Phosphatase Cancelled Ammonia Total Creatine Kinase (30-223) U/L Troponin I High Sens Cancelled Total Protein Cancelled Albumin Cancelled Globulin Cancelled Albumin/Globulin Ratio Cancelled Procalcitonin TSH (0.300-4.500) uIu/ml Salicylates Acetaminophen Ethyl Alcohol mg/dL SARS-CoV-2 (PCR) (Negative) Influenza Type A (PCR) (Neg) Influenza Type B (PCR) (Neg) RSV (RT-PCR) (Neg) SARS-CoV-2 RNA (BERTIN) Blood Type Antibody Screen 02/06/22 02/06/22 02/06/22 Range/Units 20:39 20:39 20:39 WBC (4.8-10.8) K/uL RBC (4.7-6.1) M/uL Hgb (14.0-18.0) g/dL POC Hgb (14.0-18.0) g/dl Hct (42-52) % POC Hct (42-52) % MCV (80-100) fL MCH (25-34) pg MCHC (32-36) g/dL RDW Std Deviation (36.4-46.3) fL RDW Coeff of Denise (11.5-14.5) % Plt Count (130-400) K/uL MPV (7.4-10.4) fL Immature Gran % (Auto) % Neut % (Auto) % Lymph % (Auto) % [place] % (Auto) % Eos % (Auto) % Baso % (Auto) % Neut # (Auto) (1.4-6.5) K/uL Lymph # (Auto) (1.2-3.4) K/uL [place] # (Auto) (0.11-0.59) K/uL Eos # (Auto) (0-0.5) K/uL Baso # (Auto) (0-0.2) K/uL Immature Gran # (Auto) (0.00-0.02) K/uL Toxic Vacuolation PT (9.0-12.0) Seconds INR (0.9-1.1) APTT (21.0-31.0) Seconds PTT Ratio POC pH (7.35-7.45) POC pCO2 (35-46) mmHg POC pO2 (80-95) mmHg POC HCO3 (19-24) sugey/L POC Total CO2 (24-31) mmol/L POC Base Excess (-9-1.8) sugey/L POC ABG O2 Sat (90-95) % POC Sodium (135-144) mmol/L Sodium POC Potassium (3.3-5.0) mmol/L Potassium POC Chloride (101-112) mmol/L Chloride Carbon Dioxide Anion Gap POC Anion Gap (16-25) mmol/L POC BUN (7-18) mg/dl BUN Creatinine POC Creatinine (0.6-1.3) mg/dl Est Cr Clr Drug Dosing Est GFR ( Amer) Est GFR (Non-Af Amer) BUN/Creatinine Ratio Glucose POC Glucose (70-99) mg/dl POC Glucose (other) (70-99) mg/dl Osmolality Lactate Calcium POC Ioniz Calcium [place] (1.12-1.32) mmol/l Phosphorus (2.5-4.9) mg/dl Magnesium Total Bilirubin AST ALT Alkaline Phosphatase Ammonia Cancelled Total Creatine Kinase (30-223) U/L Troponin I High Sens Total Protein Albumin Globulin Albumin/Globulin Ratio Procalcitonin TSH (0.300-4.500) uIu/ml Salicylates Cancelled Acetaminophen Cancelled Ethyl Alcohol mg/dL Cancelled SARS-CoV-2 (PCR) (Negative) Influenza Type A (PCR) (Neg) Influenza Type B (PCR) (Neg) RSV (RT-PCR) (Neg) SARS-CoV-2 RNA (BERTIN) Blood Type Antibody Screen 02/06/22 02/06/2202/06/22 Range/Units 20:39 20:45 20:45 WBC (4.8-10.8) K/uL RBC (4.7-6.1) M/uL Hgb (14.0-18.0) g/dL POC Hgb 8.5 L (14.0-18.0) g/dl Hct (42-52) % POC Hct 25 L (42-52) % MCV (80-100) fL MCH (25-34) pg MCHC (32-36) g/dL RDW Std Deviation (36.4-46.3) fL RDW Coeff of Denise (11.5-14.5) % Plt Count (130-400) K/uL MPV (7.4-10.4) fL Immature Gran % (Auto) % Neut % (Auto) % Lymph % (Auto) % [place] % (Auto) % Eos % (Auto) % Baso % (Auto) % Neut # (Auto) (1.4-6.5) K/uL Lymph # (Auto) (1.2-3.4) K/uL [place] # (Auto) (0.11-0.59) K/uL Eos # (Auto) (0-0.5) K/uL Baso # (Auto) (0-0.2) K/uL Immature Gran # (Auto) (0.00-0.02) K/uL Toxic Vacuolation PT (9.0-12.0) Seconds INR (0.9-1.1) APTT (21.0-31.0) Seconds PTT Ratio POC pH 6.98 L* (7.35-7.45) POC pCO2 24 L (35-46) mmHg POC pO2 89 (80-95) mmHg POC HCO3 6 L (19-24) sugey/L POC Total CO2 6 L* (24-31) mmol/L POC Base Excess -26.0 L (-9-1.8) sugey/L POC ABG O2 Sat 90.0 (90-95) % POC Sodium 127 L (135-144) mmol/L Sodium POC Potassium 6.2 H* (3.3-5.0) mmol/L Potassium POC Chloride (101-112) mmol/L Chloride Carbon Dioxide Anion Gap POC Anion Gap (16-25) mmol/L POC BUN (7-18) mg/dl BUN Creatinine POC Creatinine (0.6-1.3) mg/dl Est Cr Clr Drug Dosing Est GFR ( Amer) Est GFR (Non-Af Amer) BUN/Creatinine Ratio Glucose POC Glucose (70-99) mg/dl POC Glucose (other) (70-99) mg/dl Osmolality Cancelled Lactate Calcium POC Ioniz Calcium Mustapha (1.12-1.32) mmol/l Phosphorus (2.5-4.9) mg/dl Magnesium Total Bilirubin AST ALT Alkaline Phosphatase Ammonia Total Creatine Kinase (30-223) U/L Troponin I High Sens Total Protein Albumin Globulin Albumin/Globulin Ratio Procalcitonin TSH (0.300-4.500) uIu/ml Salicylates Acetaminophen Ethyl Alcohol mg/dL SARS-CoV-2 (PCR) (Negative) Influenza Type A (PCR) (Neg) Influenza Type B (PCR) (Neg) RSV (RT-PCR) (Neg) SARS-CoV-2 RNA (BERTIN) Cancelled Blood Type Antibody Screen 02/06/22 02/06/22 02/06/22 Range/Units 20:45 20:49 21:29 WBC (4.8-10.8) K/uL RBC (4.7-6.1) M/uL Hgb (14.0-18.0) g/dL POC Hgb 7.8 L (14.0-18.0) g/dl Hct (42-52) % POC Hct 23 L (42-52) % MCV (80-100) fL MCH (25-34) pg MCHC (32-36) g/dL RDW Std Deviation (36.4-46.3) fL RDW Coeff of Denise (11.5-14.5) % Plt Count (130-400) K/uL MPV (7.4-10.4) fL Immature Gran % (Auto) % Neut % (Auto) % Lymph % (Auto) % [place] % (Auto) % Eos % (Auto) % Baso % (Auto) % Neut # (Auto) (1.4-6.5) K/uL Lymph # (Auto) (1.2-3.4) K/uL [place] # (Auto) (0.11-0.59) K/uL Eos # (Auto) (0-0.5) K/uL Baso # (Auto) (0-0.2) K/uL Immature Gran # (Auto) (0.00-0.02) K/uL Toxic Vacuolation PT (9.0-12.0) Seconds INR (0.9-1.1) APTT (21.0-31.0) Seconds PTT Ratio POC pH (7.35-7.45) POC pCO2 (35-46) mmHg POC pO2 (80-95) mmHg POC HCO3 (19-24) sugey/L POC Total CO2 8 L* (24-31) mmol/L POC Base Excess (-9-1.8) sugey/L POC ABG O2 Sat (90-95) % POC Sodium 128 L (135-144) mmol/L Sodium POC Potassium 6.4 H* (3.3-5.0) mmol/L Potassium POC Chloride 98 L (101-112) mmol/L Chloride Carbon Dioxide Anion Gap POC Anion Gap 29.0 H (16-25) mmol/L POC BUN 82 H (7-18) mg/dl BUN Creatinine POC Creatinine 3.9 H (0.6-1.3) mg/dl Est Cr Clr Drug Dosing Est GFR ( Amer) Est GFR (Non-Af Amer) BUN/Creatinine Ratio Glucose POC Glucose (70-99) mg/dl POC Glucose (other) > 700 H* (70-99) mg/dl Osmolality Lactate Calcium POC Ioniz Calcium [place]ha 1.10 L (1.12-1.32) mmol/l Phosphorus (2.5-4.9) mg/dl Magnesium Total Bilirubin AST ALT Alkaline Phosphatase Ammonia Total Creatine Kinase (30-223) U/L Troponin I High Sens Total Protein Albumin Globulin Albumin/Globulin Ratio Procalcitonin TSH (0.300-4.500) uIu/ml Salicylates Acetaminophen Ethyl Alcohol mg/dL SARS-CoV-2 (PCR) NEGATIVE (Negative) Influenza Type A (PCR) Negative (Neg) Influenza Type B (PCR) Negative (Neg) RSV (RT-PCR) Negative (Neg) SARS-CoV-2 RNA (BERTIN) Blood Type O Positive Antibody Screen NEGATIVE 02/06/22 02/06/22 02/06/22 Range/Units 21:29 21:29 21:29 WBC (4.8-10.8) K/uL RBC (4.7-6.1) M/uL Hgb (14.0-18.0) g/dL POC Hgb (14.0-18.0) g/dl Hct (42-52) % POC Hct (42-52) % MCV (80-100) fL MCH (25-34) pg MCHC (32-36) g/dL RDW Std Deviation (36.4-46.3) fL RDW Coeff of Denise (11.5-14.5) % Plt Count (130-400) K/uL MPV (7.4-10.4) fL Immature Gran % (Auto) % Neut % (Auto) % Lymph % (Auto) % [place] % (Auto) % Eos % (Auto) % Baso % (Auto) % Neut # (Auto) (1.4-6.5) K/uL Lymph # (Auto) (1.2-3.4) K/uL [place] # (Auto) (0.11-0.59) K/uL Eos # (Auto) (0-0.5) K/uL Baso # (Auto) (0-0.2) K/uL Immature Gran # (Auto) (0.00-0.02) K/uL Toxic Vacuolation PT (9.0-12.0) Seconds INR (0.9-1.1) APTT (21.0-31.0) Seconds PTT Ratio POC pH (7.35-7.45) POC pCO2 (35-46) mmHg POC pO2 (80-95) mmHg POC HCO3 (19-24) sugey/L POC Total CO2 (24-31) mmol/L POC Base Excess (-9-1.8) sugey/L POC ABG O2 Sat (90-95) % POC Sodium (135-144) mmol/L Sodium 134 L POC Potassium (3.3-5.0) mmol/L Potassium 4.9 POC Chloride (101-112) mmol/L Chloride 89 L Carbon Dioxide 15 L Anion Gap 30 H POC Anion Gap (16-25) mmol/L POC BUN (7-18) mg/dl BUN 73 H Creatinine 3.29 H POC Creatinine (0.6-1.3) mg/dl Est Cr Clr Drug Dosing Not Reportable Est GFR ( Amer) 22.2 Est GFR (Non-Af Amer) 19.2 BUN/Creatinine Ratio 22.2 H Glucose 1439 H* POC Glucose (70-99) mg/dl POC Glucose (other) (70-99) mg/dl Osmolality 398 H* Lactate Calcium 6.5 L POC Ioniz Calcium [place]ha (1.12-1.32) mmol/l Phosphorus 10.3 H (2.5-4.9) mg/dl Magnesium 2.8 H Total Bilirubin 0.3 AST 52 H ALT 25 Alkaline Phosphatase 67 Ammonia Total Creatine Kinase 687 H (30-223) U/L Troponin I High Sens 31874.7 H* Total Protein 4.3 L Albumin 2.5 L Globulin 1.8 L Albumin/Globulin Ratio 1.4 Procalcitonin TSH (0.300-4.500) uIu/ml Salicylates Acetaminophen Ethyl Alcohol mg/dL < 10.0 SARS-CoV-2 (PCR) (Negative) Influenza Type A (PCR) (Neg) Influenza Type B (PCR) (Neg) RSV (RT-PCR) (Neg) SARS-CoV-2 RNA (BERTIN) Blood Type Antibody Screen 02/06/22 02/06/22 02/06/22 Range/Units 21:29 21:29 21:29 WBC (4.8-10.8) K/uL RBC (4.7-6.1) M/uL Hgb (14.0-18.0) g/dL POC Hgb (14.0-18.0) g/dl Hct (42-52) % POC Hct (42-52) % MCV (80-100) fL MCH (25-34) pg MCHC (32-36) g/dL RDW Std Deviation (36.4-46.3) fL RDW Coeff of Denise (11.5-14.5) % Plt Count (130-400) K/uL MPV (7.4-10.4) fL Immature Gran % (Auto) % Neut % (Auto) % Lymph % (Auto) % [place] % (Auto) % Eos % (Auto) % Baso % (Auto) % Neut # (Auto) (1.4-6.5) K/uL Lymph # (Auto) (1.2-3.4) K/uL [place] # (Auto) (0.11-0.59) K/uL Eos # (Auto) (0-0.5) K/uL Baso # (Auto) (0-0.2) K/uL Immature Gran # (Auto) (0.00-0.02) K/uL Toxic Vacuolation PT (9.0-12.0) Seconds INR (0.9-1.1) APTT (21.0-31.0) Seconds PTT Ratio POC pH (7.35-7.45) POC pCO2 (35-46) mmHg POC pO2 (80-95) mmHg POC HCO3 (19-24) sugey/L POC Total CO2 (24-31) mmol/L POC Base Excess (-9-1.8) sugey/L POC ABG O2 Sat (90-95) % POC Sodium (135-144) mmol/L Sodium POC Potassium (3.3-5.0) mmol/L Potassium POC Chloride (101-112) mmol/L Chloride Carbon Dioxide Anion Gap POC Anion Gap (16-25) mmol/L POC BUN (7-18) mg/dl BUN Creatinine POC Creatinine (0.6-1.3) mg/dl Est Cr Clr Drug Dosing Est GFR ( Amer) Est GFR (Non-Af Amer) BUN/Creatinine Ratio Glucose POC Glucose (70-99) mg/dl POC Glucose (other) (70-99) mg/dl Osmolality Lactate 3.2 H* Calcium POC Ioniz Calcium [place]ha (1.12-1.32) mmol/l Phosphorus (2.5-4.9) mg/dl Magnesium Total Bilirubin AST ALT Alkaline Phosphatase Ammonia 134.0 H Total Creatine Kinase (30-223) U/L Troponin I High Sens Total Protein Albumin Globulin Albumin/Globulin Ratio Procalcitonin 13.55 H TSH (0.300-4.500) uIu/ml Salicylates Acetaminophen Ethyl Alcohol mg/dL SARS-CoV-2 (PCR) (Negative) Influenza Type A (PCR) (Neg) Influenza Type B (PCR) (Neg) RSV (RT-PCR) (Neg) SARS-CoV-2 RNA (BERTIN) Blood Type Antibody Screen 02/06/22 02/06/22 02/06/22 Range/Units 21:29 21:29 21:29 WBC 23.42 H (4.8-10.8) K/uL RBC 2.75 L (4.7-6.1) M/uL Hgb 8.8 L (14.0-18.0) g/dL POC Hgb (14.0-18.0) g/dl Hct 27.0 L (42-52) % POC Hct (42-52) % MCV 98.2 (80-100) fL MCH 32.0 (25-34) pg MCHC 32.6 (32-36) g/dL RDW Std Deviation 47.8 H (36.4-46.3) fL RDW Coeff of Denise 13.4 (11.5-14.5) % Plt Count 246 (130-400) K/uL MPV 11.2 H (7.4-10.4) fL Immature Gran % (Auto) 0.6 % Neut % (Auto) 93.1 % Lymph % (Auto) 5.2 % [place] % (Auto) 1.0 % Eos % (Auto) 0.0 % Baso % (Auto) 0.1 % Neut # (Auto) 21.79 H (1.4-6.5) K/uL Lymph # (Auto) 1.22 (1.2-3.4) K/uL [place] # (Auto) 0.23 (0.11-0.59) K/uL Eos # (Auto) 0.01 (0-0.5) K/uL Baso # (Auto) 0.03 (0-0.2) K/uL Immature Gran # (Auto) 0.14 H (0.00-0.02) K/uL Toxic Vacuolation 1+ PT 11.3 (9.0-12.0) Seconds INR 1.1 (0.9-1.1) APTT 30.2 (21.0-31.0) Seconds PTT Ratio 1.1 POC pH (7.35-7.45) POC pCO2 (35-46) mmHg POC pO2 (80-95) mmHg POC HCO3 (19-24) sugey/L POC Total CO2 (24-31) mmol/L POC Base Excess (-9-1.8) sugey/L POC ABG O2 Sat (90-95) % POC Sodium (135-144) mmol/L Sodium POC Potassium (3.3-5.0) mmol/L Potassium POC Chloride (101-112) mmol/L Chloride Carbon Dioxide Anion Gap POC Anion Gap (16-25) mmol/L POC BUN (7-18) mg/dl BUN Creatinine POC Creatinine (0.6-1.3) mg/dl Est Cr Clr Drug Dosing Est GFR ( Amer) Est GFR (Non-Af Amer) BUN/Creatinine Ratio Glucose POC Glucose (70-99) mg/dl POC Glucose (other) (70-99) mg/dl Osmolality Lactate Calcium POC Ioniz Calcium Mustapha (1.12-1.32) mmol/l Phosphorus (2.5-4.9) mg/dl Magnesium Total Bilirubin AST ALT Alkaline Phosphatase Ammonia Total Creatine Kinase (30-223) U/L Troponin I High Sens Total Protein Albumin Globulin Albumin/Globulin Ratio Procalcitonin TSH (0.300-4.500) uIu/ml Salicylates < 3.0 L Acetaminophen < 3 L Ethyl Alcohol mg/dL SARS-CoV-2 (PCR) (Negative) Influenza Type A (PCR) (Neg) Influenza Type B (PCR) (Neg) RSV (RT-PCR) (Neg) SARS-CoV-2 RNA (BERTIN) Blood Type Antibody Screen 02/06/22 Range/Units 21:29 WBC (4.8-10.8) K/uL RBC (4.7-6.1) M/uL Hgb (14.0-18.0) g/dL POC Hgb (14.0-18.0) g/dl Hct (42-52) % POC Hct (42-52) % MCV (80-100) fL MCH (25-34) pg MCHC (32-36) g/dL RDW Std Deviation (36.4-46.3) fL RDW Coeff of Denise (11.5-14.5) % Plt Count (130-400) K/uL MPV (7.4-10.4) fL Immature Gran % (Auto) % Neut % (Auto) % Lymph % (Auto) % [place] % (Auto) % Eos % (Auto) % Baso % (Auto) % Neut # (Auto) (1.4-6.5) K/uL Lymph # (Auto) (1.2-3.4) K/uL [place] # (Auto) (0.11-0.59) K/uL Eos # (Auto) (0-0.5) K/uL Baso # (Auto) (0-0.2) K/uL Immature Gran # (Auto) (0.00-0.02) K/uL Toxic Vacuolation PT (9.0-12.0) Seconds INR (0.9-1.1) APTT (21.0-31.0) Seconds PTT Ratio POC pH (7.35-7.45) POC pCO2 (35-46) mmHg POC pO2 (80-95) mmHg POC HCO3 (19-24) sugey/L POC Total CO2 (24-31) mmol/L POC Base Excess (-9-1.8) sugey/L POC ABG O2 Sat (90-95) % POC Sodium (135-144) mmol/L Sodium POC Potassium (3.3-5.0) mmol/L Potassium POC Chloride (101-112) mmol/L Chloride Carbon Dioxide Anion Gap POC Anion Gap (16-25) mmol/L POC BUN (7-18) mg/dl BUN Creatinine POC Creatinine (0.6-1.3) mg/dl Est Cr Clr Drug Dosing Est GFR ( Amer) Est GFR (Non-Af Amer) BUN/Creatinine Ratio Glucose POC Glucose (70-99) mg/dl POC Glucose (other) (70-99) mg/dl Osmolality Lactate Calcium POC Ioniz Calcium [place]ha (1.12-1.32) mmol/l Phosphorus (2.5-4.9) mg/dl Magnesium Total Bilirubin AST ALT Alkaline Phosphatase Ammonia Total Creatine Kinase (30-223) U/L Troponin I High Sens Total Protein Albumin Globulin Albumin/Globulin Ratio Procalcitonin TSH 1.245 (0.300-4.500) uIu/ml Salicylates Acetaminophen Ethyl Alcohol mg/dL SARS-CoV-2 (PCR) (Negative) Influenza Type A (PCR) (Neg) Influenza Type B (PCR) (Neg) RSV (RT-PCR) (Neg) SARS-CoV-2 RNA (BERTIN) Blood Type Antibody Screen Imaging Data My Impression: Chest x-ray: ETT approximately 4 cm above the emily no pneumothorax. No consolidation. No cardiomegaly or cephalization.. No free air under the diaphragm. No fractures of the skeletal structures. Pelvis x-ray: No acute fracture or dislocation Radiologist's Impression: PreliminaryFindingsOnly See Final Report For Complete Findings CT ABDOMEN & PELVIS Without Contrast: No free fluid or evidence solid organ injuryis seen within the abdomen or pelvis. Bowel loops are nondilated. There is mild diverticulosis of the left and sigmoid colon without signs of acute diverticulitis. There are 6.4 cmof stool in the rectumwhich could indicate mild constipation. No acute inflammatorychanges are seen. No free fluid or evidence of bowel injury. The urinarybladder is completelydecompressed bya Foleycatheter and within normal limits. Previous kyphoplastyat L2. There are mild degenerative changes throughout the lower thoracic and lumbar spine. No acute fracture or subluxation is seen. Radiologist: Tima Juares MD Study ready at 22:30 and initial results transmitted at 22:47 PreliminaryFindingsOnly See Final Report For Complete Findings CT CHEST Without Contrast: There is an endotracheal tube in standard position. The aorta is nondilated. No mediastinal hematoma is seen. This is a noncontrast scan. No lymphadenopathyor masses identified per the heart is not enlarged. Streakyinfiltrates and/or atelectasis in both lower lobeswith central bronchial thickening suggesting bronchitis. No pneumothorax or pleural effusion is seen. Mild multilevel degenerative changes are seen throughout the thoracic spine. No acute fracture or destructive bone lesion is seen. Old nonunion fracture of the distal left clavicle. Radiologist: Tima Juares MD Study ready at 22:33 and initial results transmitted at 22:42 PreliminaryFindingsOnly See Final Report For Complete Findings CT C SPINE: Mild to moderate multilevel degenerative disc disease greatest in the lower cervical spine at C5-6. There is mild multilevel degenerative facet arthrosis aswell. No acute cervical spine fracture or traumatic subluxation is seen. Borderline mild spinal stenosis at C5-6with the canal measuring 9-10 mm. There is moderate right and mild left neural foraminal narrowing due to disc marginal osteophyte formation. Partial visualization of an endotracheal tube. Radiologist: Tima Juares MD Study ready at 22:23 and initial results transmitted at 22:32 PreliminaryFindingsOnly See Final Report For Complete Findings CT HEAD: Mild central atrophyand periventricular white matter lowdensityconsistent with chronic small vessel disease and/or senescent changes. There is no evidence of acute large vessel infarct or intracranial hemorrhage. The paranasal sinuses and mastoid air cells appear within normal limits. No skull fracture or significant scalp hematoma is identified. Radiologist: Tima Juares MD Study ready at 22:23 and initial results transmitted at 22:29 ECG Data Additional Comments: EKG #1 at 2010: Wide-complex tachycardia with a rate of 108. QRS 148. QTc 531. Findings are concerning for hyperkalemia. EKG #2 at 2053 status post calcium gluconate, bicarb, albuterol 10 mg nebulized: Sinus tachycardia with rate of 104. AL QRS and QTc intervals within normal limits. No ST elevation or ST depression. MDM Narrative The patient was evaluated in room A1. A complete history and physical exam was performed Cardiac monitoring: An order was placed for continuous cardiac monitoring. The monitor shows a rate of 110 with sinus tachycardia rhythm Patient arrives via EMS tachycardic hypotensive and altered. Patient's GCS is greater than 10. Patient's blood sugar via EMS was critical high. Patient is having Kussmaul tachypneic breathing. 2 L normal saline ordered for the patient. Concerned that the patient is hyperkalemic and in DKA given his wide-complex tachycardia on EKG and cafeteria monitor.Calcium gluconate ordered for the patient. ABG shows that the patient had a pH of 6.98 PCO2 of 13 bicarb 3.2. Sodium 120 potassium 7.2 hemoglobin 10.2. Given this hyperkalemia and EKG findings, albuterol 10 mg nebulizer ordered for the patient as well as bicarb amp and drip. Cnght-xl-cold glucose showed glucose of 324. This Is not thought that this was accurate. An i-STAT was done which showed the potassium and hemoglobin to be undetectable. Again these are not thought to be accurate results and there is concerned that the blood might be contaminated with the patient's saline that was infusing. Repeat ABG was conducted which on arterial blood gas does confirm the hyperkalemia of 6.2. This is after IV fluids 2 L of infuse, albuterol is been given, calcium, and bicarb has been given. Repeat pH 6.979 PCO2 23.5 bicarb 5.5. An i-STAT with the arterial blood shows that the glucose is greater than 700, potassium 6.4, sodium 128, creatinine 3.9. 10 units insulin IV push ordered for the patient. Patient placed in c-collar. Rectal exam was performed on the patient given the possible coffee-ground emesis is mild. Hemoccult negative. Patient found to be hypothermic on rectal temperature. Patient placed on Leonid hugger. Patient remained hypotensive despite 2 L normal saline. Third liter of IV fluid ordered for the patient. ICU team contacted. ICU team came to evaluate the patient. And the patient was becoming increasingly agitated despite Ativan, patient is flailing trying to get out of bed rip IVs and catheter out of him. Both the ICU team and I agreed to intubate the patient for airway protection. Patient intubated. See procedure note. Repeat EKG after the nebulized albuterol, calcium gluconate, bicarb, and insulin shows that the patient's rhythm has normalized into a sinus rhythm. Patient remains hypotensive despite 3 L of IV fluids, patient started on Le vophed drip. ICU team placed arterial line. Patient was taken to CT scan after the patient's blood pressure normalized after being on Levophed drip. Labs did show a white blood cell count of 23.4. Hemoglobin 8.8. Sodium 134. Potassium 4.9. Again this is after wearing 3 L of IV fluids, albuterol 10 mg nebulized, calcium gluconate 1 g IV, multiple doses of bicarb and on bicarb drip, as well as 10 units of insulin. Patient's labs show that the patient is in DKA with an anion gap of 30 and glucose of 1439. Creatinine of 3.29. Patient's osmolality is 398. No osmolar gap. Lactic acid 3.2. Magnesium 2.8. Ammonia 134. Troponin 56540.7. Procalcitonin 13.55. Salicylate acetaminophen and alcohol level negative. Patient will be treated with broad-spectrum antibiotics for possible sepsis Zosyn and vancomycin. Insulin bolus and drip ordered for the patient. Imaging showed no acute traumatic injury. [facility] team Dr. Juares. Impression & Plan DKA (diabetic ketoacidosis), Metabolic encephalopathy, Acute hyperkalemia, TOD (acute kidney injury), Elevated troponin, Hypothermia Discharge Plan Visit Data Chief Complaint: Altered Mental Status Stated Complaint: Hyperglycemia ED Provider: Evan Lomas Patient Disposition: Admitted As Inpatient Prescriptions Prescriptions: No Action quetiapine [Seroquel] 25 mg Tablet 0 mg PO DAILY RF: 0 Lantus U-100 Insulin 100 unit/mL Solution 0 unit SUBCUT DIRECTED RF: 0 sildenafil [Viagra] 50 mg Tablet 0 mg PO DAILY PRN (Reason: Sexual Activity) RF: 0 atorvastatin 10 mg Tablet 0 mg PO DAILY RF: 0 lisinopril 10 mg Tablet 0 mg PO DAILY RF: 0 Novolin R Regular U-100 Insuln 100 unit/mL Solution 0 unit SUBCUT DIRECTED RF: 0 sertraline [Zoloft] 25 mg Tablet 0 mg PO DAILY RF: 0 oxycodone [OxyContin] 20 mg Tablet,Oral Only,Ext.Rel.12 Hr 20 mg PO BID PRN (Reason: Pain) RF: 0 multivitamin Tablet 1 tab PO DAILY RF: 0 pseudoephedrine HCl [Sudafed 12 Hour] 120 mg Tablet Extended Release 120 mg PO Q12H PRN (Reason: Congestion) RF: 0 ibuprofen 200 mg Tablet 400 - 600 mg PO DIRECTED PRN (Reason: Pain) RF: 0 vitamin B complex Tablet 1 tab PO DAILY RF: 0 coenzyme Q10 [CoQ-10] 100 mg Capsule 0 mg PO DAILY RF: 0 Medical Marijuana 1 dose DIRECTED PRN (Reason: NEEDED) RF: 0
[2022-02-06] MEDS ORDERED: ICU PROTOCOL FOR HYPERGLYCEMIA PRN (23:54)
[2022-02-06] MEDS ORDERED: NORMOSOL-R 1,000 ML IV SCH (23:54)
[2022-02-06] MEDS ORDERED: HHS GOAL RANGE 250-350 mg/dl ONE (23:54)
[2022-02-06] MEDS ORDERED: OCTREOTIDE ACETATE 500 MCG in DEXTROSE 5% 100 ML IV SCH (23:54)
--- NOTE | 2022-02-06 23:59 | Procedure Note ---
Procedure Note Date of Service February 06, 2022 Note Procedure: Arterial Line Placement Attending: Dr. Carvajal APC: Herb Zhou PA-C Indication: Hemodynamic monitoring Anesthesia: Lidocaine 1% Emergent Consent implied in the setting of clinical deterioration and need for close hemodynamic monitoring, ABG monitoring, frequent lab draws, etc. A time-out was completed verifying correct patient, procedure, site, positioning, and implant(s) or special equipment if applicable. Allens test was performed to ensure adequate perfusion. Patients RIGHT wrist was prepped and draped in the usual sterile fashion. Ultrasound guidance was used to aid needle placement. A 20g Arrow arterial line was introduced into the RIGHT Radial artery. Catheter was threaded, and the needle was removed with appropriate blood return. Good waveform was observed. The patient tolerated the procedure well. Confirmation of placement with ultrasound. Blood Loss: Minimal Complications: None Procedural Ultrasound Guidance: Procedure Date: 02/06/2022 Indication: Hemodynamic Monitoring, Frequent ABGs/Lab draws. Attending: Dr. Carvajal APC: Herb Zhou PA-C Artery Identified: YES Line confirmed in Artery with ultrasound: YES Complications: NONE Patient tolerated procedure: WELL Coding CPT Codes Tubes, Drains, and Vasc Access - Tubes, Drains, and Vasc Access: [id number] Place Catheter In Artery ([id number]) [facility] [place] Codes (Charges) Tubes, Drains, and Vasc Access Procedure 1: Tubes, Drains, and Vasc Access: [id number] Place Catheter In Artery
--- NOTE | 2022-02-07 | Critical Care Consultation ---
Date of Consultation February 06, 2022 Assessment & Plan (1) Admitted to intensive care unit: Reason Critically Ill: 61-year-old male who presents critically ill with a ventricular dysrhythmia secondary to hyperkalemia in the setting of DKA with associated high anion gap metabolic acidosis with respiratory failure and profound hypotension. NEURO - * CAM ICU: Unable to assess * Metabolic encephalopathy: * Multifactorial in the critically ill patient presenting with DKA, sepsis, and multiple metabolic derangements. * CT head/brain without acute findings. * Continue to monitor for mental status changes with improvement of underlying conditions. CARDIAC/VASCULAR - * Hypotension: * Again multifactorial in the presumed profoundly hypovolemic patient and significantly acidemic patient. * Resuscitated appropriately with crystalloid in the emergency department. * Levophed initiated. * NSTEMI: * In the absence of concerning EKG changes, likely demand in the critically ill patient. Again, multifactorial in the setting of hypovolemia with associated acidemia. * Will trend troponin as argument certainly could be made for initiation of heparin drip if there continues to be significant escalation climb, particularly in the profoundly hypotensive patient. * Monitor on telemetry. RESPIRATORY - * Acute hypoxic respiratory failure: * Likely more related to encephalopathy and inability to protect airway. * Required endotracheal intubation for ongoing management. * Patient masterfully intubated in a difficult setting secondary to underlying metabolic derangements. * Will match respiratory rate while on the ventilator initially. * Will wean down FiO2 as tolerated. * Ok with permissive hypocapnia while attempting to help compensate metabolic demands in the initial phases of resuscitation. * Serial ABGs. GI/NUTRITION - * Question episode of coffee ground emesis last PM: * Reasonable to continue Protonix/Octreotide gtts in the critically ill patient. * Patient w/ no known h/o varices. * Will place OGT as patient will require certain PO Rx. * Hyperammonemia: * Likely in the setting of the acutely ill patient. * Agree w/ Lactulose. RENAL/LYTES - * Hyperkalemia: * In the setting of profound acidemia. * Corrected well with aggressive management. * Encouraging as the patient is making urine now. * Acute Renal Failure: * Likely 2/2 hypovolemia and hypotension. * Continue w/ aggressive IVF management. * Patient making good amounts of urine now. * HAGMA: * Likely 2/2 DKA, Lactic acidosis, Uremia. * Patient not known to imbibe on a regular basis and certainly not toxic EtOH. * Salicylate levels wnl. * Initially requiring multiple BiCarb pushes and gtt. Will adjust IVF as labs improve. - * Blevins in place - Strict I&Os. ENDO - * DKA: * BSGs per unit protocol. ISS --> gtt per unit policy. HEME - * Anemia: * Of ? etiology. * ? GIB. * Type and crossed. * Transfuse if needed. ID - * Severe Sepsis w/ Septic Shock: * Of ?? source at this time. * PCT >13. Elevated Lactate and WBCs. Hypothermia. * Agree w/ broad spectrum abx while cultures pending. LINES/IV ACCESS - * PIVs x3 * ETT * OGT * Blevins * RIGH IJ CVL * RIGHT Rad Art Line DVT PROPHYLAXIS - * SCDs I have personally spent 85 minutes of critical care time in the direct management of this patient. This is a life/limb threatening event. This includes time spent evaluating patient, direct bedside care, chart review, placing orders, interpretation of diagnostic studies, discussion with consultants, patient, and family members, as well as other required patient management activities. This time is exclusive of all separately billable procedures, and teaching time and separate from and in addition to any other critical care service time. Thank you for allowing us to participate in the care of this patient. Please refer to my attending physician's documentation for any further recommendations. (2) DKA (diabetic ketoacidosis): (3) Severe sepsis: (4) Acute respiratory failure with hypoxia: (5) ARF (acute renal failure): (6) Hyperkalemia: (7) High anion gap metabolic acidosis: (8) Hypothermia: (9) Ventricular arrhythmia: (10) Metabolic encephalopathy: (11) Type 2 diabetes mellitus: History of Present Illness Attending Physician: Arcelia Juares DO History of Present Illness Patient is a 61-year-old male with a significant past medical history of insulin-dependent diabetes and chronic pain who presented to the emergency department in active extremis with wide-complex tachyarrhythmia concerning for impending arrest requiring immediate treatment of hyperkalemia. After cor rection of hyperkalemia, the patient was persistently encephalopathic and unable to provide any pertinent past medical history. Patient was profoundly hypotensive and hypoxic. He was successfully intubated and required vasopressors which did seem to help improve heart rate and blood pressures. CT imaging demonstrated no significant findings. Patient was brought to the ICU for ongoing evaluation and management. Upon my initial assessment of the patient in the emergency department, patient was altered and restless. He was hypotensive and tachycardic. Patient was tachypneic as well. He did not respond to initial doses of IV Ativan. Patient warranted intubation. Preintubation, the patient was loaded with bicarb pushes. Status post successful intubation, repeat blood gas demonstrated persistent acidemia. Patient received an additional doses of bicarb as well as bicarb drip. Patient had been started on insulin drip as well. He was subsequently brought to the ICU for ongoing management. Allergies Allergy/AdvReac Type Severity Reaction Status Date / Time No Known Allergies Allergy Verified 02/06/22 21:32 Home Medications Medication Instructions Recorded Confirmed Type Medical Marijuana 1 dose DIRECTED PRN 02/06/22 02/06/22 History atorvastatin 10 mg tablet 0 mg PO DAILY 02/06/22 02/06/22 History coenzyme Q10 100 mg capsule 0 mg PO DAILY 02/06/22 02/06/22 History (CoQ-10) ibuprofen 200 mg tablet 400 - 600 mg PO DIRECTED PRN 02/06/22 02/06/22 History insulin glargine 100 unit/mL 0 unit SUBCUT DIRECTED 02/06/22 02/06/22 History subcutaneous solution (Lantus U-100 Insulin) insulin regular human 100 unit/mL 0 unit SUBCUT DIRECTED 02/06/22 02/06/22 History injection solution (Novolin R Regular U-100 Insulin) lisinopril 10 mg tablet 0 mg PO DAILY 02/06/22 02/06/22 History multivitamin 1 tab PO DAILY 02/06/22 02/06/22 History oxycodone 20 mg tablet,crush 20 mg PO BID PRN 02/06/22 02/06/22 History resistant,extended release 12 hr (OxyContin) pseudoephedrine HCl 120 mg 120 mg PO Q12H PRN 02/06/22 02/06/22 History tablet,extended release (Sudafed 12 Hour) quetiapine 25 mg tablet (Seroquel) 0 mg PO DAILY 02/06/22 02/06/22 History sertraline 25 mg tablet (Zoloft) 0 mg PO DAILY 02/06/22 02/06/22 History sildenafil 50 mg tablet (Viagra) 0 mg PO DAILY PRN 02/06/22 02/06/22 History vitamin B complex 1 tab PO DAILY 02/06/22 02/06/22 History Patient History Medical History Chronic pain HLD (hyperlipidemia) Type 2 diabetes mellitus Social History Smoking Status: Never smoker Do You Dip or Chew Tobacco: No; Hx Alcohol Use: Yes Alcohol type: hard liquor Hx Substance Use: Yes Last Used Substance Other:: months ago Substance Use Type Other:: medical Preferred Language: Albanian Communication Ability: Effective 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 GENERAL - 61-year-old male appearing his stated age who is in active extremis. SKIN - Without rashes. HEAD - NC/AT. EYES - PERRL with EOMI bilaterally. Sclera anicteric. EARS - No deformities of external structures noted on gross examination bilaterally. NOSE - Midline and without cyanosis. MOUTH/OROPHARYNX - ETT in place. Without perioral cyanosis. Buccal mucosa pink and moist dry. NECK - Neck with FROM. Supple to palpation. No lymphadenopathy noted. No nuchal rigidity. LUNGS - Chest wall symmetric without accessory muscle use, intercostals retractions, or central cyanosis. Normal vesicular breath sounds CTA B/L. No wheezes, rales, or rhonchi appreciated. CARDIAC - RRR with S1/S2. No murmur, rubs, or gallops appreciated. ABDOMEN - Abdominal contour flat without pulsations or visible masses. BS normoactive all four quadrants. No tenderness, palpable masses, hepatosplenomegaly, or ascites noted. EXTREMITIES - No clubbing or peripheral cyanosis. No pretibial edema present. +3/5 radial and dorsalis pedis pulses palpated throughout. NEUROLOGIC - No focal neurological deficits noted. Unable to fully assess secondary to sedation. Results & Data Results & Data ([facility]) Vital Signs (Past 12 Hours) Vital Signs Temp Pulse Pulse Resp BP Pulse Ox 02/06/22 23:25 116 H 30 H 100 02/06/22 23:20 115 H 30 H 100 02/06/22 23:15 115 H 30 H 100 02/06/22 23:10 114 H 30 H 100 02/06/22 23:05 115 H 30 H 100 02/06/22 23:00 33.8 C L 115 H 30 H 100 02/06/22 22:55 115 H 30 H 100 02/06/22 22:50 116 H 30 H 100 02/06/22 22:45 115 H 30 H 100 02/06/22 22:40 115 H 30 H 100 02/06/22 22:35 117 H 30 H 100 02/06/22 22:30 116 H 30 H 100 02/06/22 22:25 116 H 30 H 100 02/06/22 22:20 117 H 30 H 100 02/06/22 22:15 119 H 30 H 100 02/06/22 22:13 120 H 30 H 100 02/06/22 21:45 120 H 30 H 02/06/22 21:44 120 H 30 H 02/06/22 21:42 120 H 30 H 02/06/22 21:40 114 H 30 H 02/06/22 21:38 118 H 30 H 02/06/22 21:36 117 H 30 H 02/06/22 21:35 117 H 30 H 02/06/22 21:34 117 H 30 H 111/56 L 100 02/06/22 21:32 117 H 30 H 109/55 L 100 02/06/22 21:30 116 H 30 H 106/55 L 100 02/06/22 21:24 113 H 30 H 92/50 L 100 02/06/22 21:23 113 H 30 H 92/53 L 100 02/06/22 21:22 112 H 30 H 90/53 L 100 02/06/22 21:20 111 H 20 86/50 L 100 02/06/22 21:18 109 H 20 80/51 L 100 02/06/22 21:16 108 H 20 78/49 L 02/06/22 21:15 115 H 30 H 100 02/06/22 21:14 107 H 26 H 77/47 L 100 02/06/22 21:12 106 H 25 H 67/41 L 100 02/06/22 21:11 103 H 20 71/43 L 02/06/22 21:10 105 H 12 70/47 L 02/06/22 21:08 107 H 12 71/45 L 02/06/22 21:06 107 H 12 75/49 L 02/06/22 21:05 103 H 12 68/50 L 02/06/22 21:04 99 H 12 67/36 L 02/06/22 21:03 104 H 12 63/45 L 02/06/22 21:01 105 H 24 68/40 L 02/06/22 21:00 104 H 28 H 02/06/22 20:50 33.4 C L 02/06/22 20:45 109 H 26 H 72 L 02/06/22 20:30 108 H 25 H 02/06/22 20:28 110 H 25 H 97 02/06/22 20:26 111 H 26 H 85/46 L 02/06/22 20:10 115 H 26 H 85/46 L 85 L 02/06/22 20:09 114 H 26 H 79/54 L Coding Level of Care Code Critical Care 1st 30-74 mins Diagnoses Admitted to intensive care unit Z78.9 DKA (diabetic ketoacidosis) E11.10 Severe sepsis A41.9; R65.20 Acute respiratory failure with hypoxia J96.01 ARF (acute renal failure) N17.9 Hyperkalemia E87.5 High anion gap metabolic acidosis E87.2 Hypothermia T68.XXXA Ventricular arrhythmia I49.9 Metabolic encephalopathy G93.41 Type 2 diabetes mellitus E11.9 Time Spent (min) 85
[2022-02-07 00:07] LABS: iSTAT Arterial Blood Gas HCO3 9 meg/L (19-24); iSTAT Arterial Blood Gas pCO2 25 mmHg (35-46); iSTAT Arterial Blood Gas pH 7.16 (7.35-7.45); iSTAT Arterial Blood Gas pO2 132 mmHg (80-95); iSTAT Carbon Dioxide 10 mmol/L (24-31); iSTAT FiO2 40 %; iSTAT Site Art Line
[2022-02-07] MEDS: PANTOprazole 40 MG in DEXTROSE 5% 100 ML IV SCH ×5 (00:31→20:59)
[2022-02-07] MEDS: Patient's HEIGHT &/or WEIGHT Needed SCH ×2 (00:33→02:44)
[2022-02-07] MEDS ORDERED: PROPOFOL BOLUS FROM BAG IV PRN (00:41)
[2022-02-07] MEDS ORDERED: STAT IV Infusion **Titration per Protocol STA ×2 (00:41→14:17)
[2022-02-07] MEDS ORDERED: fentaNYL citrate 2,500 MCG/250 ML BAG IV SCH (00:45)
[2022-02-07] MEDS: propofoL 1,000 MG/100 ML VIAL IV SCH ×5 (00:58→23:04)
[2022-02-07 01:02] LABS: Appearance Urine Clear (Clear); Bacteria Urine Automated Negative (Negative); Bilirubin Urine Negative (Negative); Blood Urine 3+ (Negative); Color Urine Yellow; Glucose Urine UA 3+ (Negative); Ketones Urine 3+ (Negative); Leukocyte Esterase Urine Negative (Negative); Nitrite Urine Negative (Negative); Protein Urine Negative (Negative); RBC Urine Automated 0-4 /hpf (0-4); Specific Gravity Urine 1.023 (1.000-1.030); Urobilinogen Urine Negative (Negative); WBC Urine Automated 0 /hpf (0-5)
[2022-02-07 01:07] LABS: Hematocrit (blood only) 29.9 % (42-52); Hemoglobin 10.1 g/dL (14.0-18.0); Mean Corpuscular Hemoglobin 32.6 pg (25-34); Mean Corpuscular Hgb Conc 33.8 g/dL (32-36); Mean Corpuscular Volume 96.5 fL (80-100); Mean Platelet Volume 11.4 fL (7.4-10.4); Platelet Count 236 K/uL (130-400); RDW Coefficient of Variation 12.9 % (11.5-14.5); RDW Standard Deviation 44.8 fL (36.4-46.3); White Blood Count 27.05 K/uL (4.8-10.8)
[2022-02-07 01:08] LABS: ALC (manual) 0.24 K/uL (1.2-3.4); ANC (manual) 25.89 K/uL (1.4-6.5); Lymphocytes # (manual) 0.24 K/uL (1.2-3.4); Lymphocytes % (manual) 0.9 %; Monocytes # (manual) 0.92 K/uL (0.11-0.59); Monocytes % (manual) 3.4 %; Neutrophils # (manual) 25.89 K/uL (1.4-6.5); Neutrophils % (manual) 95.7 %; Toxic Vacuolation 1+
[2022-02-07 01:14] LABS: Anion Gap 32 (3-11); Blood Urea Nitrogen 75 mg/dl (6-23); Calcium 7.1 mg/dl (8.5-10.1); Carbon Dioxide 9 mmol/L (21-32); Chloride 96 mmol/L (98-107); Est GFR (African American) 22.5 ml/min; Est GFR (Non-African American) 19.4 ml/min; Glucose 1139 mg/dl (70-99(Fasting)); Lipase 25 U/L (11-82); Magnesium 2.8 mg/dl (1.7-2.4); Phosphorus 5.1 mg/dl (2.5-4.9); Potassium 3.2 mmol/L (3.5-5.1); Sodium 137 mmol/L (136-145)
[2022-02-07 01:22] LABS: Creatinine Urine Random 21.3 mg/dl
[2022-02-07 01:25] LABS: Amphetamines+Metham, Urine Neg (Neg); Barbiturates, Urine Neg (Neg); Benzodiazepine, Urine Neg (Neg); Cocaine, Urine Neg (Neg); MDMA (Ecstacy), Urine Neg (Neg); Methadone, Urine Neg (Neg); Opiate, Urine Neg (Neg); Phencyclidine, Urine Neg (Neg)
[2022-02-07] MEDS ORDERED: SODIUM BICARBONATE IV SCH (01:30)
[2022-02-07] MEDS ORDERED: WATER IV SCH (01:30)
[2022-02-07] MEDS ORDERED: POTASSIUM ACETATE IV SCH (01:30)
[2022-02-07] MEDS ORDERED: STERILE IV SCH (01:30)
[2022-02-07] MEDS ORDERED: PIPERACILL/TAZOBAC CONSULT ACTIVE PRN (01:48)
[2022-02-07] MEDS ORDERED: PIPERACILLIN/TAZOBACTAM 4.5 GM in DEXTROSE 5% 100 ML IV ONE (02:00)
[2022-02-07] MEDS: POTASSIUM ACETATE/NSS 10 MEQ/105 ML BAG IV SCH ×2 (02:33→03:37)
[2022-02-07 03:28] LABS: Glucose 1027 mg/dl (70-99(Fasting)); Troponin I High Sensitivity > 27027.0 pg/ml (0-20)
[2022-02-07] MEDS ORDERED: Heparin IV Adult Wt-Based Low-Dose *NO* Bolus Protocol IV SCH (03:33)
--- NOTE | 2022-02-07 03:38 | Procedure Note ---
Procedure Note Date of Service February 07, 2022 Note Procedure: Internal Jugular Central Line Placement Attending: Dr. Carvajal APC: Herb Zhou PA-C Indication: Central Drug Administration, Poor Venous Access, Multiple Lab Draws Necessary, etc. Anesthesia: Lidocaine 1% Emergent consent implied in the setting of critically ill patient requiring multiple IV medications, poor peripheral access, need for pressors, frequent lab draws, etc. A time-out was completed verifying correct patient, procedure, site, positioning, and implants(s) or special equipment if applicable. Patients RIGHT Neck was cleansed and draped in the typical sterile fashion using Chloraprep. The Internal Jugular Vein and Carotid Artery were identified using ultrasound. The superficial tissue was anesthetized using 3.0 mL of 1% lidocaine without epinephrine under direct visualization with the ultrasound. After adequate anesthetization was achieved, the Internal Jugular vein was cannulated under direct ultrasound guidance using an introducer needle on a syringe. Good venous blood return was maintained prior to removal of syringe from introducer needle. Using Seldinger Technique, a guide wire was advanced through the introducer needle without resistance. The introducer needle was removed and ultrasound i mages were obtained of the guide wire within the Internal Jugular Vein and saved to the patients medical record. A small incision was made in penetrating fashion at the guide wire insertion site utilizing an 11 blade scalpel. The dilator was advanced to the vessel without resistance. The dilator was exchanged for the triple lumen catheter which was advanced into the vessel without resistance. The guide wire was removed intact from the catheter without issue. Claves were placed on each catheter tip with confirmation of good blood flow from each lumen. Each port was easily flushed with sterile saline. The catheter was placed at 15 cm and sutured in place. BioPatch was applied to the catheter and a sterile Tegaderm dressing was applied over the catheter with careful attention to sterility. Patient tolerated procedure well. No immediate complications were met. Post procedure x-ray was completed, placement was appropriate and no pneumothorax was noted. Images obtained are saved for permanent record Procedural Ultrasound Guidance: Procedure Date: 02/07/2022 Indication: Pressors, Poor access, multiple medications Attending: Dr. Carvajal APC: Herb Zhou PA-C Artery AND Vein visualized: YES Compressible Vein: YES Guidewire or Short Catheter seen in vein prior to dilation: YES Line confirmed in Vein with ultrasound: YES Images obtained are saved for permanent record. Coding CPT Codes Tubes, Drains, and Vasc Access - Tubes, Drains, and Vasc Access: [id number] Insertion Of Non-tunneled Catheter Age 5 Yrs> ([id number]) Tubes, Drains, and Vasc Access - Tubes, Drains, and Vasc Access: [id number] Ultrasound Guidance For Vascular ([id number]) [facility] [place] Procedure Codes (Charges) Tubes, Drains, and Vasc Access Procedure 2: Tubes, Drains, and Vasc Access: [id number] Insertion Of Non-tunneled Catheter Age 5 Yrs> Procedure 3: Tubes, Drains, and Vasc Access: [id number] Ultrasound Guidance For Vascular
--- NOTE | 2022-02-07 03:39 | Communication Note ---
Date of Service: February 07, 2022 0330: Repeat laboratory assessment demonstrates significant elevation in the patient's high-sensitivity troponin outside of reference range. Unfortunately, this number has significantly increased based on presenting numbers. Immediately, repeat EKG was obtained and reviewed by myself which demonstrated no ST elevations or other profoundly worrisome findings. Despite this, and given the patient's ongoing hypotension and vasopressor requirement, I do feel it is prudent to start the patient on a heparin drip. Given the possible complaints of coffee-ground emesis, will place the patient on low-dose heparin no bolus. At this point, he has had repeat H&H's which have actually improved. He has an OG tube in place which demonstrates no rocco blood or coffee-ground output at this point. Certainly, the argument could be made to withhold heparin, but at this point, I do feel that it would be easier to place the patient's blood loss in the setting of bleeding and correct heparin with protamine versus allowing worsening possible ACS without aggressive management. Repeat blood works were ordered. Reviewed and discussed with nursing staff. I have personally spent 45 minutes of critical care time in the direct management of this patient. This is a life/limb threatening event. This includes time spent evaluating patient, direct bedside care, chart review, placing orders, interpretation of diagnostic studies, discussion with consultants, patient, and family members, as well as other required patient management activities. This time is exclusive of all separately billable procedures, and teaching time and separate from and in addition to any other critical care service time. Coding Level of Care Code Critical Care 1st 30-74 mins Time Spent (min) 45
[2022-02-07] MEDS ORDERED: NovoLIN-R BOLUS FROM BAG IV ONE (04:00)
[2022-02-07] MEDS: HEPARIN SODIUM/DEXTROSE 25,000 UNITS/500 ML BAG IV SCH (04:36)
[2022-02-07 05:20] LABS: Alanine Aminotransferase 40 U/L (7-52); Albumin Level 3.2 gm/dl (3.4-5.0); Alkaline Phosphatase 85 U/L (34-104); Anion Gap 28 (3-11); Aspartate Aminotransferase 102 U/L (13-39); BUN Creatinine Ratio 22.7 (10-20); Bilirubin Direct 0.1 mg/dl (0-0.2); Bilirubin,Total 0.5 mg/dl (0.2-1.0); Blood Urea Nitrogen 72 mg/dl (6-23); Calcium 7.3 mg/dl (8.5-10.1); Carbon Dioxide 15 mmol/L (21-32); Chloride 96 mmol/L (98-107); Est GFR (African American) 23.2 ml/min; Glucose 843 mg/dl (70-99(Fasting)); Magnesium 2.6 mg/dl (1.7-2.4); Phosphorus 1.6 mg/dl (2.5-4.9); Potassium 3.1 mmol/L (3.5-5.1); Sodium 139 mmol/L (136-145); Total Protein 5.4 gm/dl (6.0-8.3); Troponin I High Sensitivity > 27027.0 pg/ml (0-20)
[2022-02-07 05:34] LABS: Hematocrit (blood only) 28.7 % (42-52); Hemoglobin 10.2 g/dL (14.0-18.0); Mean Corpuscular Hgb Conc 35.5 g/dL (32-36); Mean Platelet Volume 11.3 fL (7.4-10.4); Platelet Count 265 K/uL (130-400); RDW Coefficient of Variation 12.3 % (11.5-14.5); RDW Standard Deviation 40.3 fL (36.4-46.3); Red Blood Count 3.19 M/uL (4.7-6.1); White Blood Count 23.28 K/uL (4.8-10.8)
[2022-02-07 05:40] LABS: iSTAT Art Bld Gas pCO2 Correct 24 mmHg (35-46); iSTAT Art Bld Gas pH Corrected 7.437 (7.35-7.45); iSTAT Arterial Blood Gas HCO3 16 meg/L (19-24); iSTAT Arterial Blood Gas pCO2 23 mmHg (35-46); iSTAT Arterial Blood Gas pH 7.45 (7.35-7.45); iSTAT Arterial Blood Gas pO2 104 mmHg (80-95); iSTAT Arterial Blood Gas pO2 C 109; iSTAT Carbon Dioxide 16 mmol/L (24-31); iSTAT FiO2 30 %; iSTAT Hematocrit 28 % (42-52); iSTAT Hemoglobin 9.5 g/dl (14.0-18.0); iSTAT Site Art Line; iSTAT Sodium 138 mmol/L (135-144)
[2022-02-07 05:42] LABS: Basophils # (auto) 0.01 K/uL (0-0.2); Immature Granulocytes # (auto) 0.12 K/uL (0.00-0.02); Immature Granulocytes % (auto) 0.5 %; Lymphocytes # (auto) 1.21 K/uL (1.2-3.4); Lymphocytes % (auto) 5.2 %; Monocytes # (auto) 1.23 K/uL (0.11-0.59); Monocytes % (auto) 5.3 %; Neutrophils # (auto) 20.71 K/uL (1.4-6.5); Toxic Vacuolation 1+
[2022-02-07] MEDS ORDERED: POTASSIUM ACETATE/NSS 20 MEQ/110 ML BAG IV ONE (05:45)
[2022-02-07] MEDS: POTASSIUM ACETATE 20 MEQ in SODIUM CHLORIDE 0.45 % 1,000 ML IV SCH ×2 (06:06→13:42)
[2022-02-07] MEDS: OCTREOTIDE ACETATE 500mcg / D5W 100mL @50mcg/hr IV SCH ×2 (06:09→16:24)
[2022-02-07] MEDS: NOREPINEPHRINE/D5W 8 MG/508 ML BAG IV SCH ×3 (06:33→22:16)
--- NOTE | 2022-02-07 06:40 | Billing Data ---
Date of Service February 06, 2022 Coding Level of Care Code 92941 Prolonged Care (int'l)
[2022-02-07 07:22] LABS: BUN Creatinine Ratio 22.1 (10-20); Calcium 7.6 mg/dl (8.5-10.1); Creatinine Clr Calc Pharmacy 25.4 ml/min; Est GFR (African American) 23.7 ml/min; Est GFR (Non-African American) 20.4 ml/min
--- NOTE | 2022-02-07 07:23 | CT Scan Report ---
CT SCAN OF THE BRAIN WITHOUT IV CONTRAST CLINICAL HISTORY: Fall. COMPARISON STUDY: No priors. TECHNIQUE: Unenhanced axial CT scan of the brain is performed from the vertex to the skull base. A do se lowering technique was utilized adhering to the principles of ALARA. FINDINGS: Brain parenchyma: There is age-related involutional change noting minimal subcortical and periventric ular microangiopathic disease. There is no hemorrhage, mass effect, or evidence of acute territorial ischemia by CT criteria. You-white matter differentiation is preserved. No extra-axial fluid collect ion is seen. Ventricles, sulci, cisterns: Prominent secondary to involutional change. Intracranial vasculature: There is atherosclerotic calcification of the cavernous carotid and vertebr al arteries. Calvarium: There is no depressed calvarial fracture. Sinuses and mastoids: There is mild mucosal thickening within the ethmoid, sphenoid, and maxillary si nuses. The mastoid air cells are well pneumatized. Cerumen is noted in the right external auditory ca nal. Orbits: The bony orbits are grossly intact. IMPRESSION: There is no hemorrhage, mass effect, or evidence of acute territorial ischemia by CT luis fernando kruse. ACT 112: Negative or not required by law. Electronically signed by: Lebron Beard M.D. 02/07/2022 7:21 AM
[2022-02-07] MEDS ORDERED: INSULIN ASPART PER UNIT SC SCH (07:30)
[2022-02-07] MEDS ORDERED: POTASSIUM CHLORIDE 20 MEQ/15 ML UDC GT STA (07:40)
[2022-02-07 07:41] LABS: Estimated Average Glucose 249 mg/dl; Hemoglobin A1C 10.3 % (4.5-5.6)
--- NOTE | 2022-02-07 07:42 | Hospitalist Progress Note ---
Date of Service February 07, 2022 Assessment & Plan (1) GI bleed: Plan: Assessment: 61-year-old male with history of T2DM who presented with high-anion gap hyperglycemia likely representing severe mixed HHS/DKA, profound hypotension, and ventricular arrhythmia secondary to hyperkalemia. Plan: Neuro: Metabolic encephalopathy: - On admission with decreased mentation, inability to protect airway. - Suspect secondary to sepsis, metabolic derangements (HHS/DKA, hyperammonemia, profound hypovolemia) - CT head with evidence of chronic small vessel disease without evidence of intracranial hemorrhage or acute CVA. - Ethyl alcohol, salicylate, and acetaminophen levels negative. - Lactulose 30 g PO x1 ordered, with repeat ammonia Chronic pain: - History of chronic back pain with scheduled and as needed use of oxycodone ER and IR - Hold for now. Resp: Ventilatory dependent respiratory failure with hypoxia - Secondary to obtundation and inability to protect airway. - Currently intubated and mechanically ventilated - CT chest without contrast without evidence of pneumothorax or pleural effusion. Atelectasis and central bronchial thickening bilaterally suggest bronchitis - Monitor ABGs Cardiovascular: Wide-complex ventricular arrhythmia: - On arrival to ER was noted to have wide-complex tachycardia on telemetry which was then confirmed on EKG. - Suspect secondary to significant hyperkalemia and metabolic acidosis. - Treat offending factors - TTE without appreciable structural abnormalities Shock - Hypovolemic, Possible ?Septic - Suspect secondary to HHS+DKA, resultant and severe hypervolemia, possible component from sepsis; lower suspicion secondary to WCT described above - s/p fluid resuscitation in the ED, during early admission - Continue vasopressors per ICU, ween as tolerated - Random cortisol pending Elevated Troponin - On admission, noted to have troponin ~82308 --> [place] [address] on recheck - ECG without acute repolarization abnormalities - In setting of profound hypotension/shock and hypovolemia, definitely a component of demand ischemia -- normal TTE without RMWAs are reassuring. - Continue heparin gtt w/o bolus in setting of c/f NSTEMI - Monitor on telemetry, trend troponin Renal, Electrolytes: TOD: - Admission creatinine 3.29; suspect secondary to profound hypovolemia and DKA, likely also intrinsic component / ATN - Continue fluid resuscitation initiated in ED - Monitor UOP with Blevins catheter - Improving with resuscitation. Monitor BMPs. Hyperkalemia: - Presenting potassium POC of 7.2 in setting of DKA, TOD - s/p insulin 10u IV, albuterol neb, calcium gluconate, bicarb gtt during early admission - Demonstrating persistent improvement / normalization on repeat labs - Continue fluid resuscitation - Treat TOD DKA: See below Anion Gap Metabolic Acidosis - On arrival, patient noted to be profoundly acidemic (pH 6.99) with high anion gap (30) - Multiple etiologies likely contributing: DKA, lactic acidosis, hyperammonemia ; salicylate neg - Fluid resuscitation, DKA treatment, mechanical ventilation ongoing, as described elsewhere - Demonstrating persistent improvement on serial ABGs - s/p HCO3 gtt GI/Nutrition: Reported Episode of Coffee-ground Emesis / Possible Hematemesis - One reported episode of coffee-ground appearing emesis per patient's friend on admission; however, no repeat findings since admission consistent with such. Occurred in setting of presumed HoTN. - Hgb 8.8 on arrival, demonstrating stability, type and screen ordered - Continue pantoprazole and octreotide gtt started on admission for now (h/o EtOH use, no known abuse or cirrhosis by history on admission) - s/p OGT placement; draining clear secretions, no blood - Monitor CBC - Transfuse < 7 - GI consulted by admitting team -- appreciate insight on ?stopping gtts outlined above Hyperammonemia - No reported history of liver failure. Suspect secondary to ongoing critical illness - Likely contributing to metabolic encephalopathy - Greatly improved following fluid resuscitation, insulin gtt, lactulose - Monitor CMP, repeat level p.r.n. Endocrine: Mixed DKA / HHS - Presented with BSG 1440, severe elevated anion-gap metabolic acidosis, ketonuria, elevated serum osmolality; suspect mixed component of DKA and hyperosmolar/HHS state - Continue insulin gtt - Continue fluid resuscitation, ICU electrolyte replacement protocol - A1c: 10.3% - Appreciate ICU and pharmacy management - Per on admission, patient is non-adherent with his diabetic regimen at home. Home regimen includes Lantus 25 units daily with sliding scale insulin. Will require diabetic education consultation when appropriate - Monitor lytes, serial BSGs ID: Possible Sepsis / Septic Shock - On admission noted to have WBC count of 23.42 with left shift, tachycardia, tachypnea, significant hypotension and hypovolemia, hypothermia (33C) elevated PCT and lactate. --> Meets SIRS criteria, though source is not clear - No clear evidence of infection on exam or CT head, chest, abdomen, pelvis. - COVID-19, RSV, influenza negative. MRSA swab pending. - Lactate and procalcitonin elevated. TSH normal. - Continue vancomycin/Zosyn, with de-escalation as able. - Continue Levophed to maintain MAP >65 - Monitor cultures (BCX, UCX) Heme: Normocytic Anemia: - Admission hemoglobin 8.8 with normocytic MCV; unknown baseline - Improved to ~9.8 on DOA#1 (despite fluid resuscitation) - Unclear etiology. Reported emesis with coffee-ground appearance noted on admission, GIB certainly a possibility. ?Chronic disease. Code status: FULL CODE FEN: NPO, OGT in place DVT ppx: Contraindicated in the setting of suspected acute GIB Disposition: Care per ICU (2) Metabolic encephalopathy: (3) Metabolic acidosis: (4) Type 2 diabetes mellitus: (5) Hyperosmolar hyperglycemic state (HHS): (6) Hypocalcemia: (7) Hyperkalemia: (8) Ventricular arrhythmia: (9) Septic shock: (10) Anemia: (11) Hypothermia: (12) TOD (acute kidney injury): (13) Acute respiratory failure with hypoxia: Admission and Anticipated Discharge Date Admission Date: February 06, 2022 Supervising Physician Co-Signing Physician Notes Attending attestation Pt seen and examined in concert with Dr. Mojica. In agreement with the documented findings as noted in the resident documentation with any exceptions or additions as noted here. Sedated on ventilator On examination, diffuse coarse breath sounds, tachycardia w/o murmur Septic shock - cultures pending - continue pip/tazo, pressors by ICU protocol Hyperkalemia w/ wide complex V. tachycardia - resolved s/p albuterol, insulin, calcium gluconate. monitor DKA/HHS - hyperglycemia improving on insulin protocol, continue to monitor Else see resident documentation as noted. Subjective Unobtainable due to ETT and reduced consciousness Review of Systems Review of Systems: Unobtainable due to endotracheal tube and Unobtainable due to reduced consciousness Physical Exam Physical Exam: General: 61-year old male who is sedated and intubated HEENT: NCAT. - Eyes - Sclera are white, anicteric, and without injection. - Mouth - MMM - Neck - supple, no appreciable JVD Cardiac: Tachycardic with regular rhythm; S1 and S2 present with no murmurs, rubs, or gallops. Pulmonary: ETT in place. Ongoing mechanical ventilation. Lungs were clear to auscultation bilaterally with no crackles or wheezes. Abdominal: Normoactive bowel sounds. Abdomen was soft, nondistended, and non- tender to palpation. Extremities: Upper and lower extremities are warm and well perfused. No peripheral edema in the lower extremities bilaterally Results & Data Results & Data ([facility]) Vital Signs (Past 12 Hours) Vital Signs Temp Pulse Pulse Pulse Resp BP BP 02/07/22 06:00 37.8 C H 107 H 26 H 132/61 02/07/22 05:00 37.8 C H 107 H 26 H 128/68 02/07/22 04:54 26 H 02/07/22 04:38 108 H 30 H 02/07/22 04:00 37.7 C H 110 H 30 H 119/68 02/07/22 03:00 37.3 C 110 H 30 H 115/63 02/07/22 02:00 36.7 C 113 H 30 H 107/63 02/07/22 01:36 34.8 C L 117 H 30 H 121/64 02/07/22 01:00 35.6 C L 110 H 30 H 96/56 L 02/07/22 00:45 35.3 C L 111 H 30 H 103/62 02/07/22 00:00 34.6 C L 118 H 32 H 110/68 02/06/22 23:49 117 H 32 H 121/64 02/06/22 23:40 116 H 30 H 02/06/22 23:25 116 H 30 H 02/06/22 23:20 115 H 30 H 02/06/22 23:15 115 H 30 H 02/06/22 23:10 114 H 30 H 02/06/22 23:05 115 H 30 H 02/06/22 23:00 33.8 C L 115 H 30 H 02/06/22 22:55 115 H 30 H 02/06/22 22:50 116 H 30 H 02/06/22 22:45 115 H 30 H 02/06/22 22:40 115 H 30 H 02/06/22 22:35 117 H 30 H 02/06/22 22:30 116 H 30 H 02/06/22 22:25 116 H 30 H 02/06/22 22:20 117 H 30 H 02/06/22 22:15 119 H 30 H 02/06/22 22:13 120 H 30 H 02/06/22 21:45 120 H 30 H 02/06/22 21:44 120 H 30 H 02/06/22 21:42 120 H 30 H 02/06/22 21:40 114 H 30 H 02/06/22 21:38 118 H 30 H 02/06/22 21:36 117 H 30 H 02/06/22 21:35 117 H 30 H 02/06/22 21:34 117 H 30 H 111/56 L 02/06/22 21:32 117 H 30 H 109/55 L 02/06/22 21:30 116 H 30 H 106/55 L 02/06/22 21:24 113 H 30 H 92/50 L 02/06/22 21:23 113 H 30 H 92/53 L 02/06/22 21:22 112 H 30 H 90/53 L 02/06/22 21:20 111 H 20 86/50 L 02/06/22 21:18 109 H 20 80/51 L 02/06/22 21:16 108 H 20 78/49 L 02/06/22 21:15 115 H 30 H 02/06/22 21:14 107 H 26 H 77/47 L 02/06/22 21:12 106 H 25 H 67/41 L 02/06/22 21:11 103 H 20 71/43 L 02/06/22 21:10 105 H 12 70/47 L 02/06/22 21:08 107 H 12 71/45 L 02/06/22 21:06 107 H 12 75/49 L 02/06/22 21:05 103 H 12 68/50 L 02/06/22 21:04 99 H 12 67/36 L 02/06/22 21:03 104 H 12 63/45 L 02/06/22 21:01 105 H 24 68/40 L 02/06/22 21:00 104 H 28 H 02/06/22 20:50 33.4 C L 02/06/22 20:45 109 H 26 H 02/06/22 20:30 108 H 25 H 02/06/22 20:28 110 H 25 H 02/06/22 20:26 111 H 26 H 85/46 L 02/06/22 20:10 115 H 26 H 85/46 L 02/06/22 20:09 114 H 26 H 79/54 L Pulse Ox 02/07/22 06:00 100 02/07/22 05:00 100 02/07/22 04:54 02/07/22 04:38 99 02/07/22 04:00 100 02/07/22 03:00 100 02/07/22 02:00 100 02/07/22 01:36 100 02/07/22 01:00 100 02/07/22 00:45 100 02/07/22 00:00 100 02/06/22 23:49 100 02/06/22 23:40 99 02/06/22 23:25 100 02/06/22 23:20 100 02/06/22 23:15 100 02/06/22 23:10 100 02/06/22 23:05 100 02/06/22 23:00 100 02/06/22 22:55 100 02/06/22 22:50 100 02/06/22 22:45 100 02/06/22 22:40 100 02/06/22 22:35 100 02/06/22 22:30 100 02/06/22 22:25 100 02/06/22 22:20 100 02/06/22 22:15 100 02/06/22 22:13 100 02/06/22 21:45 100 02/06/22 21:44 02/06/22 21:42 02/06/22 21:40 100 02/06/22 21:38 02/06/22 21:36 02/06/22 21:35 100 02/06/22 21:34 100 02/06/22 21:32 100 02/06/22 21:30 100 02/06/22 21:24 100 02/06/22 21:23 100 02/06/22 21:22 100 02/06/22 21:20 100 02/06/22 21:18 100 02/06/22 21:16 02/06/22 21:15 100 02/06/22 21:14 100 02/06/22 21:12 100 02/06/22 21:11 02/06/22 21:10 02/06/22 21:08 02/06/22 21:06 02/06/22 21:05 02/06/22 21:04 02/06/22 21:03 02/06/22 21:01 02/06/22 21:00 02/06/22 20:50 02/06/22 20:45 72 L 02/06/22 20:30 02/06/22 20:28 97 02/06/22 20:26 02/06/22 20:10 85 L 02/06/22 20:09 Resident Activity Tracking Resident Involvement: Resident Care Provided Care Provided: Adult Hospital Medicine
--- NOTE | 2022-02-07 08:04 | CT Scan Report ---
CT cervical spine wo con CLINICAL HISTORY: fall? ams TECHNIQUE: Multidetector row helical CT of the cervical spine was performed without administration of intravenous contrast. Coronal and sagittal reformations were obtained. Automated dose lowering techn iques and/or adjustment according to patient size were utilized for this exam. Comparison: None available at the time of this dictation. FINDINGS: No acute fractures or subluxations are identified. Degenerative changes are seen in the visualized sp ine. The alignment is normal. Biapical scarring is seen. An endotracheal tube is partially visualized . There is partial visualization of multiple foci of venous gas likely secondary to injection. IMPRESSION: Degenerative changes without evidence of acute bony injury. ACT 112: Negative or not required by law. Electronically signed by: Robby Zuniga M.D. 02/07/2022 8:02 AM
[2022-02-07] MEDS: INSULIN ASPART PER UNIT SC SCH ×4 (08:14→23:04)
--- NOTE | 2022-02-07 08:18 | XRay Report ---
XR pelvis 1-2V routine CLINICAL HISTORY: fall? ams COMPARISON: None FINDINGS: Sacroiliac joints and symphysis pubis are intact. No acute fracture is identified within t he pelvis or hips. Pelvic calcifications favor phleboliths. Vascular calcification is incidentally no karli. IMPRESSION: No acute fracture within the pelvis or hips. ACT 112: Negative or not required by law. Electronically signed by: Jeffery Carvalho M.D. 02/07/2022 8:17 AM
--- NOTE | 2022-02-07 08:27 | XRay Report ---
XR chest 1V portable CLINICAL HISTORY: SEPSIS COMPARISON STUDY: No previous studies for comparison. FINDINGS: Tip of endotracheal tube is 4.6 cm above the emily. There is no pneumothorax or pleural ef fusion. Cardiac size is normal. Mediastinal contours are normal. No evidence for pulmonary edema. The re is minimal left basilar opacity. IMPRESSION: 1. Satisfactory positioning of the endotracheal tube. 2. Minimal left basilar opacity. ACT 112: Negative or not required by law. Electronically signed by: Jeffery Carvalho M.D. 02/07/2022 8:25 AM
--- NOTE | 2022-02-07 08:30 | XRay Report ---
SINGLE VIEW CHEST CLINICAL HISTORY: Central venous catheter placement. FINDINGS: An AP, portable, supine chest radiograph is compared to chest x-ray and chest CT dated 02/06. An endotracheal tube is unchanged in position. An enteric tube has been placed. The tip projec ts below the diaphragm and is not visualized. A right internal jugular central venous catheter has be en placed. The tip projects over the SVC. The cardiomediastinal silhouette is unremarkable. Airspace opacities are suggested in the right lung. No large pleural effusion or pneumothorax is seen. The bon y thorax is grossly intact. IMPRESSION: 1. Lines and tubes as above. 2. No pneumothorax is identified post procedure. 3. Airspace opacities are suggested in the right lung. Correlate clinically for evidence of pneumonia /aspiration pneumonitis. Radiographic follow-up to resolution is recommended. ACT 112: Negative or not required by law. Electronically signed by: Lebron Beard M.D. 02/07/2022 8:29 AM
--- NOTE | 2022-02-07 08:52 | CT Scan Report ---
CT OF THE CHEST WITHOUT IV CONTRAST CLINICAL HISTORY: Fall. COMPARISON STUDY: Chest radiograph February 06, 2022 at 9:16 PM. TECHNIQUE: Axial images of the chest were obtained without IV contrast. Images were reviewed in the axial, sagittal, and coronal planes. IV contrast was not administered for this examination. Automat ed exposure control was utilized for the study. A dose lowering technique was utilized adhering to t he principles of ALARA. FINDINGS: Positioning of the endotracheal tube is satisfactory. Apparent mild mediastinal stranding is of questionable significance. Thoracic aorta is suboptimally assessed on this unenhanced exam but there is no mediastinal hematoma. Size of the heart is normal. Is no pericardial effusion. No thoraci c lymphadenopathy is noted. No pneumo thorax is present. There are trace bilateral pleural effusions with associated airspace opacities consistent with atelectasis. Central airways are patent. No acute rib or thoracic spine fracture is noted. T5 and T6 compression deformity is likely chronic. Abdomen a nd pelvis CT will be reported separately. IMPRESSION: 1. No acute traumatic findings within the chest on unenhanced exam. 2. Trace bilateral pleural effusions with associated airspace opacities which favor atelectasis. 3. T5 and T6 compression deformities which are likely old. ACT 112: Negative or not required by law. Electronically signed by: Jeffery Carvalho M.D. 02/07/2022 8:50 AM
--- NOTE | 2022-02-07 09:08 | XCELERA ---
[id number]
--- NOTE | 2022-02-07 09:19 | CT Scan Report ---
CT SCAN OF THE ABDOMEN AND PELVIS WITHOUT IV CONTRAST CLINICAL HISTORY: Fall. COMPARISON STUDY: Pelvic radiograph dated 02/06/2022 patchy TECHNIQUE: CT scan of the abdomen and pelvis is performed from the lung bases to the proximal femora. Images are reviewed in the axial, sagittal, and coronal planes. IV contrast was not administered for this examination. Note that the examination was performed in suboptimal fashion without oral and IV contrast. The examination is degraded by motion artifact, as well as by streak artifact from the arms which could not be elevated above the abdomen or pelvis. A dose lowering technique was utilized adhe ring to the principles of ALARA. CT DOSE: 2291.25 mGy.cm FINDINGS: Lung bases: The heart is normal in size and without pericardial effusion. There are coronary artery c alcifications. There are trace pleural effusions with dependent consolidation. No basilar pneumothora x is seen. Liver: The unenhanced liver is normal in size and contour. The liver demonstrates diffusely diminishe d attenuation indicating hepatic steatosis. There is no intrahepatic biliary ductal dilatation. Gallbladder: Hyperdense material fills the gallbladder, possibly represents stones or sludge. There i s no CT evidence of acute cholecystitis. Spleen: Normal in size and attenuation. Pancreas: The unenhanced pancreas is moderately atrophic and grossly unremarkable. Adrenal glands: Unremarkable. Kidneys: The unenhanced kidneys demonstrate mild cortical atrophy and are without hydronephrosis. The re are no renal calculi identified. There is no evidence of contour deforming renal mass lesion. Abdominal vasculature: The abdominal aorta is normal in course and caliber noting mild atheroscleroti c calcification. Bowel: There is mild to moderate colonic diverticulosis without CT evidence of acute diverticulitis. No bowel obstruction is identified. Findings suggest previous appendectomy. Peritoneum: There is no intraperitoneal free air or abdominal ascites. There is a small fat-containin g umbilical hernia. Lymphadenopathy: None. Pelvic viscera: The bladder is decompressed around a Blevins catheter and not well evaluated. Intralumi nal gas is nonspecific and may be related to instrumentation. The prostate and seminal vesicles are n ormal as imaged. Skeletal structures: The skeletal structures are osteopenic. No acute fracture is clearly seen involv ing the lumbosacral spine, bony pelvis, or proximal femora. There are chronic compression deformities of L1 and L2 with evidence of previous L2 vertebroplasty. No lytic or blastic lesions are seen. IMPRESSION: 1. Suboptimal examination without oral and IV contrast. There is also streak and motion artifact. 2. There is no evidence of solid organ injury in the abdomen or pelvis on this unenhanced examination . 3. Trace pleural effusions with dependent consolidation. 4. Hepatic steatosis. 5. Colonic diverticulosis without CT evidence of acute diverticulitis. 6. Question cholelithiasis. 7. Additional findings as above. ACT 112: Negative or not required by law. Electronically signed by: Lebron Beard M.D. 02/07/2022 9:18 AM
[2022-02-07] MEDS ORDERED: PIPERACILLIN/TAZOBACTAM 4.5 GM in DEXTROSE 5% 100 ML IV SCH (10:00)
--- NOTE | 2022-02-07 10:02 | Electrocardiogram Report ---
Test Reason : Blood Pressure : / mmHG Vent. Rate : 106 BPM Atrial Rate : 111 BPM P-R Int : 000 ms QRS Dur : 148 ms QT Int : 400 ms P-R-T Axes : 000 144 023 degrees QTc Int : 531 ms Atrial fibrillation with rapid ventricular response Right bundle branch block Abnormal ECG No previous ECGs available Confirmed by Juliocesar Leblanc ([id number]) on 02/07/2022 10:02:29 AM Referred By: REFERRED SELF Confirmed By:Rivera Leblanc
[2022-02-07 10:13] LABS: Hematocrit (blood only) 28.2 % (42-52); Hemoglobin 10.4 g/dL (14.0-18.0); Mean Corpuscular Hemoglobin 32.2 pg (25-34); Mean Corpuscular Hgb Conc 36.9 g/dL (32-36); Mean Corpuscular Volume 87.3 fL (80-100); Mean Platelet Volume 10.7 fL (7.4-10.4); Platelet Count 244 K/uL (130-400); RDW Coefficient of Variation 12.3 % (11.5-14.5); RDW Standard Deviation 39.2 fL (36.4-46.3); Red Blood Count 3.23 M/uL (4.7-6.1); White Blood Count 21.35 K/uL (4.8-10.8)
--- NOTE | 2022-02-07 10:15 | Gastrointestinal Consultation ---
Date of Consultation February 07, 2022 Assessment & Plan (1) Hematemesis: Patient is a 61 yo male with a single episode of hematemesis in the setting of high anion gap hyperglycemia with acute respiratory failure, sepsis, & wide complex ventricular arrhythmias. H/H presently 10.4/28.2. Per discussion with nursing, no active bleeding has been noted overnight and this morning. -From a GI perspective, would continue IV Protonix gtt and IV Octreotide at the present time. Would recommend monitoring GI symptoms/anemia conservatively while primary team manages this critically ill patient with multiple active medical issues. Continue to monitor H/H closely. Supervising Physician Co-Signing Physician Notes Agree with MATY Schmitz as above Gen: Intubated and sedated, unable to answer any questions Chest: CTA B/L, -w/r/r CVS: Rapid rate regular rhythm Abd: Soft, ND, +BS, -HSM Ext: -c/c/e Continue Protonix gtt at 8 mg/hour Continue Octreotide gtt, as it has been shown to help with Upper GI bleeding, both variceal and non-variceal Recommend supportive care and conservative management, with no plans on invasive workup at this time due to multiple medical comorbidities. History of Present Illness Reason for Consultation: Hematemesis Attending Physician: Geovany Dolan MD History of Present Illness Patient is a 61 yo male with PMH of suboptimally controlled diabetes who presented to the ER due to somnolence and malaise.According to the patient's friend's account in the ED, he was in his usual state of health, but began to feel dizzy, fell, and had a single episode of hematemesis. When EMS arrived, the patient was hypotensive at 60/30, tachycardic, tacypneic, & hypothermic at 33* C. Patient was ultimately intubated. Labs on presentation showed a pH of 6.99, [id number], POS 137, HCO3 3.2, Na 120, K 7.2, BG 1439, hemoglobin of 10.2. Since presentation, his troponin has been noted to be 27,027, procalcitonin 15.88, Mg 2.6, Phos 1.6, HA1C 10.3, Gluc 1439, hyperammonemia, BUN 69, Cr 3.12, K 3. pH has improved to 7.16. He was noted to have a wide complex ventricular arrhythmia. Abdominal CT scan unremarkable for acute GI issues. hepatic steatosis noted. CT chest shows possible left sided pleural effusion and a chest xray from this AM shows PNA. He is currently intubated/ventilated in the ICU. Patient was placed on an Octreotide & Protonix gtt. Allergies Allergy/AdvReac Type Severity Reaction Status Date / Time No Known Allergies Allergy Verified 02/06/22 21:32 Home Medications Medication Instructions Recorded Confirmed Type Medical Marijuana 1 dose DIRECTED PRN 02/06/22 02/06/22 History atorvastatin 10 mg tablet 0 mg PO DAILY 02/06/22 02/06/22 History coenzyme Q10 100 mg capsule 0 mg PO DAILY 02/06/22 02/06/22 History (CoQ-10) ibuprofen 200 mg tablet 400 - 600 mg PO DIRECTED PRN 02/06/22 02/06/22 History insulin glargine 100 unit/mL 0 unit SUBCUT DIRECTED 02/06/22 02/06/22 History subcutaneous solution (Lantus U-100 Insulin) insulin regular human 100 unit/mL 0 unit SUBCUT DIRECTED 02/06/22 02/06/22 History injection solution (Novolin R Regular U-100 Insulin) lisinopril 10 mg tablet 0 mg PO DAILY 02/06/22 02/06/22 History multivitamin 1 tab PO DAILY 02/06/22 02/06/22 History oxycodone 20 mg tablet,crush 20 mg PO BID PRN 02/06/22 02/06/22 History resistant,extended release 12 hr (OxyContin) pseudoephedrine HCl 120 mg 120 mg PO Q12H PRN 02/06/22 02/06/22 History tablet,extended release (Sudafed 12 Hour) quetiapine 25 mg tablet (Seroquel) 0 mg PO DAILY 02/06/22 02/06/22 History sertraline 25 mg tablet (Zoloft) 0 mg PO DAILY 02/06/22 02/06/22 History sildenafil 50 mg tablet (Viagra) 0 mg PO DAILY PRN 02/06/22 02/06/22 History vitamin B complex 1 tab PO DAILY 02/06/22 02/06/22 History Patient History Medical History Chronic pain HLD (hyperlipidemia) Type 2 diabetes mellitus Social History Smoking Status: Never smoker Do You Dip or Chew Tobacco: No; Hx Alcohol Use: Yes Alcohol type: hard liquor Hx Substance Use: Yes Last Used Substance Other:: months ago Substance Use Type Other:: medical Preferred Language: Finnish Communication Ability: Effective Pick Up And Delivery Driver Required: No Beliefs That Will Affect Care: None Current Living Situation: Spouse Feels Safe at Home: Yes Safety Concerns: Feels Safe At This Time Assistive Devices: Glasses Review of Systems Review of Systems: Unobtainable due to reduced consciousness Physical Exam Constitutional: + ill appearing Respiratory: intubated/ventilated Cardiovascular: Rate/Rhythm: + tachycardic Gastrointestinal (Abdomen): normal bowel sounds, soft, nontender, no hepatosplenomegaly Musculoskeletal: Head/Neck/Chest: normocephalic Psychiatric: Orientation: + not alert and + not oriented x 3 Results & Data ([facility]) Vital Signs (Past 12 Hours) Vital Signs Temp Pulse Pulse Resp BP BP Pulse Ox 02/07/22 07:38 106 H 26 H 99 02/07/22 06:00 37.8 C H 107 H 26 H 132/61 100 02/07/22 05:00 37.8 C H 107 H 26 H 128/68 02/07/22 04:54 26 H 02/07/22 04:38 108 H 30 H 99 02/07/22 04:00 37.7 C H 110 H 30 H 119/68 100 02/07/22 03:00 37.3 C 110 H 30 H 115/63 100 02/07/22 02:00 36.7 C 113 H 30 H 107/63 02/07/22 01:36 34.8 C L 117 H 30 H 121/64 100 02/07/22 01:00 35.6 C L 110 H 30 H 96/56 L 100 02/07/22 00:45 35.3 C L 111 H 30 H 103/62 100 02/07/22 00:00 34.6 C L 118 H 32 H 110/68 100 02/06/22 23:49 117 H 32 H 121/64 100 02/06/22 23:40 116 H 30 H 99 02/06/22 23:25 116 H 30 H 100 02/06/22 23:20 115 H 30 H 02/06/22 23:15 115 H 30 H 100 02/06/22 23:10 114 H 30 H 100 02/06/22 23:05 115 H 30 H 100 02/06/22 23:00 33.8 C L 115 H 30 H 02/06/22 22:55 115 H 30 H 02/06/22 22:50 116 H 30 H 02/06/22 22:45 115 H 30 H 02/06/22 22:40 115 H 30 H 02/06/22 22:35 117 H 30 H 02/06/22 22:30 116 H 30 H 02/06/22 22:25 116 H 30 H 02/06/22 22:20 117 H 30 H 02/06/22 22:15 119 H 30 H 02/06/22 22:13 120 H 30 H 100 PG Care Time/CCT Total # of Minutes Spent Total Time Spent with Patient: Total time spent is greater than 50% in coordination of care (as documented) at patient's floor/unit and/or counseling patient: Coding Level of Care Code 66200 Inpt Consult Level 4 Diagnoses Hematemesis K92.0
[2022-02-07 10:24] LABS: iSTAT Arterial Blood Gas pCO2 35 mmHg (35-46); iSTAT Arterial Blood Gas pH 7.03 (7.35-7.45); iSTAT Hematocrit 25 % (42-52); iSTAT Hemoglobin 8.5 g/dl (14.0-18.0); iSTAT Potassium 4.6 mmol/L (3.3-5.0); iSTAT Sodium 132 mmol/L (135-144)
[2022-02-07 10:25] LABS: iSTAT Arterial Blood Gas HCO3 9 meg/L (19-24); iSTAT Arterial Blood Gas pO2 474 mmHg (80-95); iSTAT Carbon Dioxide 10 mmol/L (24-31)
[2022-02-07 10:29] LABS: Basophils # (auto) 0.01 K/uL (0-0.2); Immature Granulocytes # (auto) 0.07 K/uL (0.00-0.02); Immature Granulocytes % (auto) 0.3 %; Lymphocytes # (auto) 1.47 K/uL (1.2-3.4); Lymphocytes % (auto) 6.9 %; Monocytes % (auto) 5.2 %; Neutrophils % (auto) 87.6 %
[2022-02-07 10:38] LABS: Magnesium 2.3 mg/dl (1.7-2.4); Phosphorus 1.7 mg/dl (2.5-4.9)
[2022-02-07] MEDS ORDERED: PHARMACY GLYCEMIC MGMT CONSULT PRN (10:48)
[2022-02-07] MEDS: INSULIN GLARGINE SOLOSTAR 100 UNITS/ML 3 ML PEN SC ONE ×2 (10:51→11:16)
[2022-02-07] MEDS ORDERED: POTASSIUM PHOS 3 MMOL/1 ML INFUSION IV STA (10:56)
--- NOTE | 2022-02-07 10:59 | Pharmacy Report ---
Pharmacy Vanc AUC Short Note - Date of Service February 07, 2022 - Assessment & Plan Assessment 61 year old M receiving vancomycin and zosyn for empiric treatment in setting of septic shock, respiratory failure and DKA/HHS. Blood cultures pending, MRSA nasal (-). Day #2 of antimicrobial therapy Plan Vancomycin * AUC/RAJESH is the preferred PK/PD target for vancomycin, however due to significant TOD, plan to dose by levels. * S/p vancomycin 1500mg IV load last evening. Random level this AM, 19.6mcg/mL, therapeutic and safe to re-dose. * Vanc 750mg (~10mg/kg) IV X 1 now * Random level tomorrow AM to guide further dosing Pharmacy will continue to follow and will adjust dose/frequency as necessary. Thank you.
[2022-02-07] MEDS ORDERED: VANCOMYCIN HCL 750 MG in SODIUM CHLORIDE 0.9% 250 ML IV ONE (11:00)
[2022-02-07 11:08] LABS: iSTAT Art Bld Gas pCO2 Correct 43 mmHg (35-46); iSTAT Art Bld Gas pH Corrected 7.453 (7.35-7.45); iSTAT Arterial Blood Gas HCO3 30 meg/L (19-24); iSTAT Arterial Blood Gas pCO2 42 mmHg (35-46); iSTAT Arterial Blood Gas pH 7.46 (7.35-7.45); iSTAT Arterial Blood Gas pO2 79 mmHg (80-95); iSTAT Arterial Blood Gas pO2 C 82; iSTAT Carbon Dioxide 31 mmol/L (24-31); iSTAT FiO2 24 %; iSTAT Hematocrit 28 % (42-52); iSTAT Hemoglobin 9.5 g/dl (14.0-18.0); iSTAT Potassium 2.9 mmol/L (3.3-5.0); iSTAT Site Art Line; iSTAT Sodium 144 mmol/L (135-144)
[2022-02-07] MEDS ORDERED: POTASSIUM PHOSPHATE 21 MMOL in SODIUM CHLORIDE 0.9% 500 ML IV ONE (11:15)
--- NOTE | 2022-02-07 11:19 | Pharmacy Report ---
Pharmacy Glycemic Short Note 2 - Date of Service February 07, 2022 - Glycemic Short BSG Results (Last 24 hours): 02/06/22 02/06/22 02/06/22 20:19 20:39 20:49 Glucose Cancelled POC Glucose 342 H* POC Glucose (other) > 700 H* 02/06/22 02/07/22 02/07/22 21:29 00:25 00:25 Glucose 1439 H* 1139 H* POC Glucose POC Glucose (other) > 700 H* 02/07/22 02/07/22 02/07/22 02:30 04:25 06:25 Glucose 1027 H* 843 H* 726 H* POC Glucose POC Glucose (other) 02/07/22 02/07/22 02/07/22 06:30 08:05 09:00 Glucose POC Glucose POC Glucose (other) > 700 H* 609 H* 556 H* 02/07/22 10:03 Glucose POC Glucose POC Glucose (other) 497 H* OUTPATIENT ANTIDIABETIC REGIMEN: * Lantus/Novolin R (unknown doses); clarifying * HbA1C- 10.3% (02/07/22) ASSESSMENT: * Patient is critically ill; currently intubated/sedated requiring vasopressor support and IV antibiotics in the setting of DKA/HHS associated w/ high anion gap metabolic acidosis, respiratory failure secondary to encephalopathy and septic shock. Initiated on an insulin drip last evening per [facility] protocol (goal BSG 250-350). Initial labs: BSG- 1439mg/dL, pH 7.16, AG-29, Bicarb-8. Pharmacy consulted to assist with glycemic management. * NPO, dextrose containing IVF include heparin, octreotide, and protonix drips. 1/2NS w/ 20mEQ KAcet running at 150mL/hr overnight into this AM. * Insulin infusion running at ~ 12unit/hr average since last night. This AM -- pH 7.46, Bicarb-19, AG-24. Plan for 40 units Lantus X 1 today to assist with drip weaning as patient stabilizes. D5 containing fluids to be added once BSG within goal range. PLAN FOR INPATIENT GLYCEMIC CONTROL: * Hold outpatient oral diabetes medications * Basal insulin * Insulin drip per [facility] protocol, goal BSG adjusted from 250-350 --> 150- 250mg/dL as labs normalizing. * Bolus insulin * NovoLog per scale ACHS or Q6hrs while NPO * Goal Range: Low 150 mg/dL - High 250 mg/dL * Nutritional / Prandial insulin per carb ratio using calculator; no correctional while on drip
[2022-02-07 11:31] LABS: Partial Thromboplastin Ratio 1.9
[2022-02-07 11:35] LABS: Partial Thromboplastin Time 51.3 Seconds (21.0-31.0)
--- NOTE | 2022-02-07 11:49 | Electrocardiogram Report ---
Test Reason : Blood Pressure : / mmHG Vent. Rate : 113 BPM Atrial Rate : 113 BPM P-R Int : 144 ms QRS Dur : 080 ms QT Int : 328 ms P-R-T Axes : 073 054 067 degrees QTc Int : 449 ms Sinus tachycardia Nonspecific ST abnormality Abnormal ECG When compared with ECG of 06-FEB-2022 20:56, (unconfirmed) ST no longer depressed in Inferior leads ST no longer depressed in Lateral leads T wave inversion no longer evident in Anterior leads Confirmed by Juliocesar Leblanc ([id number]) on 02/07/2022 11:49:19 AM Referred By: REFERRED SELF Confirmed By:Rivera Leblanc
[2022-02-07 13:35] LABS: BUN Creatinine Ratio 22.3 (10-20); Calcium 7.5 mg/dl (8.5-10.1); Creatinine Clr Calc Pharmacy 29.9 ml/min; Est GFR (African American) 28.9 ml/min; Est GFR (Non-African American) 24.9 ml/min; Potassium 3.1 mmol/L (3.5-5.1)
[2022-02-07 14:12] LABS: Basophils # (auto) 0.01 K/uL (0-0.2); Eosinophils # (auto) 0.01 K/uL (0-0.5); Hematocrit (blood only) 28.3 % (42-52); Hemoglobin 10.4 g/dL (14.0-18.0); Immature Granulocytes # (auto) 0.09 K/uL (0.00-0.02); Immature Granulocytes % (auto) 0.4 %; Lymphocytes % (auto) 3.5 %; Mean Corpuscular Hemoglobin 31.3 pg (25-34); Mean Corpuscular Hgb Conc 36.7 g/dL (32-36); Mean Corpuscular Volume 85.2 fL (80-100); Mean Platelet Volume 10.5 fL (7.4-10.4); Monocytes # (auto) 2.03 K/uL (0.11-0.59); Neutrophils % (auto) 87.1 %; Platelet Count 232 K/uL (130-400); RDW Coefficient of Variation 12.5 % (11.5-14.5); RDW Standard Deviation 38.8 fL (36.4-46.3); Red Blood Count 3.32 M/uL (4.7-6.1); White Blood Count 22.64 K/uL (4.8-10.8)
[2022-02-07] MEDS ORDERED: POTASSIUM CHLORIDE 40 MEQ in D5W AND 1/2NSS 1,000 ML IV SCH (14:15)
[2022-02-07] MEDS ORDERED: DKA GOAL RANGE 150-250 mg/dl ONE (14:17)
[2022-02-07 14:55] LABS: Magnesium 2.2 mg/dl (1.7-2.4); Phosphorus 2.5 mg/dl (2.5-4.9)
[2022-02-07 16:24] LABS: BUN Creatinine Ratio 23.2 (10-20); Calcium 7.2 mg/dl (8.5-10.1); Creatinine Clr Calc Pharmacy 34.7 ml/min; Est GFR (African American) 34.6 ml/min; Est GFR (Non-African American) 29.9 ml/min; Potassium 3.4 mmol/L (3.5-5.1)
[2022-02-07] MEDS: INSULIN REGULAR 250 UNITS in SODIUM CHLORIDE 0.9% 247.5 ML IV SCH (16:24)
[2022-02-07 17:50] LABS: Hematocrit (blood only) 28.4 % (42-52); Hemoglobin 10.5 g/dL (14.0-18.0); Mean Corpuscular Hemoglobin 31.6 pg (25-34); Mean Corpuscular Volume 85.5 fL (80-100); Mean Platelet Volume 9.9 fL (7.4-10.4); Platelet Count 221 K/uL (130-400); RDW Coefficient of Variation 12.7 % (11.5-14.5); Red Blood Count 3.32 M/uL (4.7-6.1); White Blood Count 23.34 K/uL (4.8-10.8)
[2022-02-07 18:07] LABS: Phosphorus 2.9 mg/dl (2.5-4.9)
[2022-02-07 18:08] LABS: Basophils # (auto) 0.01 K/uL (0-0.2); Eosinophils # (auto) 0.01 K/uL (0-0.5); Immature Granulocytes # (auto) 0.11 K/uL (0.00-0.02); Immature Granulocytes % (auto) 0.5 %; Lymphocytes # (auto) 1.27 K/uL (1.2-3.4); Lymphocytes % (auto) 5.4 %; Monocytes # (auto) 1.87 K/uL (0.11-0.59); Neutrophils # (auto) 20.07 K/uL (1.4-6.5); Neutrophils % (auto) 86.1 %; RBC Morphology Unremarkable
[2022-02-07] MEDS: PIPERACILLIN/TAZOBACTAM 4.5 GM in DEXTROSE 5% 100 ML IV SCH (19:08)
[2022-02-07] MEDS: POTASSIUM CHLORIDE 40 MEQ in SODIUM CHLORIDE 0.45 % 1,000 ML IV SCH (20:12)
[2022-02-07] MEDS: DEXTROSE 50% 50 ML SYRINGE IV PRN (20:45)
[2022-02-07 23:38] LABS: iSTAT Art Bld Gas pCO2 Correct 40 mmHg (35-46); iSTAT Art Bld Gas pH Corrected 7.497 (7.35-7.45); iSTAT Arterial Blood Gas HCO3 31 meg/L (19-24); iSTAT Arterial Blood Gas pCO2 39 mmHg (35-46); iSTAT Arterial Blood Gas pH 7.51 (7.35-7.45); iSTAT Arterial Blood Gas pO2 92 mmHg (80-95); iSTAT Arterial Blood Gas pO2 C 96; iSTAT Carbon Dioxide 32 mmol/L (24-31); iSTAT FiO2 24 %; iSTAT Hematocrit 28 % (42-52); iSTAT Hemoglobin 9.5 g/dl (14.0-18.0); iSTAT Potassium 3.5 mmol/L (3.3-5.0); iSTAT Site Art Line; iSTAT Sodium 143 mmol/L (135-144)
[2022-02-08 00:46] LABS: Hematocrit (blood only) 28.9 % (42-52); Hemoglobin 10.5 g/dL (14.0-18.0)
[2022-02-08] MEDS: PANTOprazole 40 MG in DEXTROSE 5% 100 ML IV SCH ×2 (01:13→06:11)
[2022-02-08] MEDS: OCTREOTIDE ACETATE 500mcg / D5W 100mL @50mcg/hr IV SCH (01:44)
[2022-02-08 02:07] LABS: BUN Creatinine Ratio 24.3 (10-20); Calcium 6.9 mg/dl (8.5-10.1); Creatinine Clr Calc Pharmacy 43.7 ml/min; Est GFR (African American) 45.7 ml/min; Est GFR (Non-African American) 39.5 ml/min; Magnesium 1.9 mg/dl (1.7-2.4); Phosphorus 3.1 mg/dl (2.5-4.9); Potassium 3.4 mmol/L (3.5-5.1)
[2022-02-08] MEDS: PIPERACILLIN/TAZOBACTAM 4.5 GM in DEXTROSE 5% 100 ML IV SCH (03:00)
[2022-02-08] MEDS ORDERED: INSULIN ASPART 100 UNITS/ML 3 ML PEN SC SCH (04:00)
[2022-02-08] MEDS: INSULIN ASPART PER UNIT SC SCH ×6 (04:45→23:52)
[2022-02-08] MEDS: INSULIN REGULAR 250 UNITS in SODIUM CHLORIDE 0.9% 247.5 ML IV SCH (04:56)
[2022-02-08 05:08] LABS: Hematocrit (blood only) 28.1 % (42-52); Hemoglobin 9.9 g/dL (14.0-18.0); Immature Granulocytes # (auto) 0.09 K/uL (0.00-0.02); Immature Granulocytes % (auto) 0.5 %; Lymphocytes # (auto) 1.33 K/uL (1.2-3.4); Lymphocytes % (auto) 7.4 %; Mean Corpuscular Hemoglobin 31.3 pg (25-34); Mean Corpuscular Hgb Conc 35.2 g/dL (32-36); Mean Corpuscular Volume 88.9 fL (80-100); Mean Platelet Volume 10.8 fL (7.4-10.4); Monocytes # (auto) 1.04 K/uL (0.11-0.59); Monocytes % (auto) 5.8 %; Neutrophils % (auto) 86.3 %; Platelet Count 172 K/uL (130-400); RDW Coefficient of Variation 12.6 % (11.5-14.5); RDW Standard Deviation 40.4 fL (36.4-46.3); Red Blood Count 3.16 M/uL (4.7-6.1); White Blood Count 18.06 K/uL (4.8-10.8)
[2022-02-08 05:13] LABS: Albumin Level 2.8 gm/dl (3.4-5.0); Bilirubin Direct 0.3 mg/dl (0-0.2); Bilirubin,Total 0.7 mg/dl (0.2-1.0); Total Protein 5.2 gm/dl (6.0-8.3)
[2022-02-08 05:14] LABS: Partial Thromboplastin Ratio 3.1
[2022-02-08 05:27] LABS: Partial Thromboplastin Time 86.4 Seconds (21.0-31.0)
[2022-02-08 05:27] LABS: iSTAT Art Bld Gas pCO2 Correct 41 mmHg (35-46); iSTAT Art Bld Gas pH Corrected 7.442 (7.35-7.45); iSTAT Arterial Blood Gas HCO3 28 meg/L (19-24); iSTAT Arterial Blood Gas pCO2 39 mmHg (35-46); iSTAT Arterial Blood Gas pH 7.45 (7.35-7.45); iSTAT Arterial Blood Gas pO2 84 mmHg (80-95); iSTAT Arterial Blood Gas pO2 C 88; iSTAT Carbon Dioxide 29 mmol/L (24-31); iSTAT FiO2 24 %; iSTAT Hematocrit 26 % (42-52); iSTAT Hemoglobin 8.8 g/dl (14.0-18.0); iSTAT Potassium 4.1 mmol/L (3.3-5.0); iSTAT Site Art Line; iSTAT Sodium 140 mmol/L (135-144)
[2022-02-08 05:34] LABS: Troponin I High Sensitivity 28434.3 pg/ml (0-20)
[2022-02-08] MEDS ORDERED: ACETAMINOPHEN 1,000 MG/100 ML VIAL IV STA (06:05)
[2022-02-08] MEDS: POTASSIUM CHLORIDE 40 MEQ in SODIUM CHLORIDE 0.45 % 1,000 ML IV SCH (06:10)
[2022-02-08] MEDS: propofoL 1,000 MG/100 ML VIAL IV SCH ×2 (06:30→07:43)
[2022-02-08 07:24] LABS: Calcium 6.7 mg/dl (8.5-10.1); Creatinine Clr Calc Pharmacy 50.4 ml/min; Est GFR (African American) 50.1 ml/min; Est GFR (Non-African American) 43.2 ml/min; Potassium 4.2 mmol/L (3.5-5.1)
[2022-02-08] MEDS ORDERED: VANCOMYCIN HCL 1,250 MG in SODIUM CHLORIDE 0.9% 250 ML IV SCH (07:30)
[2022-02-08] MEDS ORDERED: INSULIN GLARGINE SOLOSTAR 100 UNITS/ML 3 ML PEN SC ONE (07:45)
[2022-02-08] MEDS: HEPARIN SODIUM/DEXTROSE 25,000 UNITS/500 ML BAG IV SCH (07:49)
--- NOTE | 2022-02-08 08:07 | Hospitalist Progress Note ---
Date of Service February 08, 2022 Assessment & Plan (1) DKA (diabetic ketoacidosis): Plan: 61 yo M with history of T2DM, hyperlipidemia, and chronic back pain who presented (02/06) via EMS with AMS, high-anion gap hyperglycemia, hypotension, metabolic encephalopathy likely secondary to DKA, ventricular arrhythmia likely secondary to hyperkalemia, and respiratory failure with hypoxia. Neuro: Metabolic encephalopathy (improving) - On ER arrival: unresponsive, unable to protect airway, GCS: 13 - Likely secondary to metabolic abnormalities, DKA - CT head (02/06): no acute findings - with no evidence of hemorrhage, ischemia, or mass effect. - Toxicology (02/06): negative, for the exception of Marijuana (likely pt home med medical marijuana) - Discontinue lactulose since NH3 wnl - Continue to monitor mental status changes Chronic pain: - History of chronic back pain with scheduled and as needed use of oxycodone ER and IR - Hold for now. Resp: Ventilatory dependent respiratory failure with hypoxia (resolved) - Intubated and mechanically ventilated on admission, likely secondary to encephalopathy and inability to protect airway - Extubated today DOA#3 in AM, w/o stridors; continues to sat well on room air - Chest CT (03/09): Trace b/l pleural effusions w/ associated airspace opacities supporting atelectasis. - Chest Xray (02/06): R airspace opacities supporting pneumonia/aspiration pneumonitis; repeat (02/08): no evidence fo acute chest disease - Monitor vitals & ABGs Cardiovascular: Atrial Fibrillation - On ER arrival: EKG showed Afib w/ Rvr; no Afib on Tele since - CHADSVASc score 2 - Likely secondary to hyperkalemia, hypovolemia and DKA - Echo (02/07): Grade I diastolic dysfunction - TTE: no significant findings - continue heparin drip for 24-48hrs, then reassess - continue to monitor - consider anticoagulation regimen upon discharge Elevated Troponin (improving) - On admission (02/06): [place] 12503[place] [address] (02/07) - Today DOA#3: trending down 54324 - ECG (02/06) : Afib w/ rvr, RBBB ; repeat ECG (02/07): sinus tachycardia - Likely secondary to demand ischemia in the setting of hypovolemia, acidosis - Continue to trend Hypotension - 60/30 per EMS report, 79/54 on ER arrival s/p 500cc by EMS - Today DO3: 92/62 - 115/74 - Random cortisol (DOA#3): 32.45 - Suspect secondary to DKA/HHS - s/p fluid resuscitation in ER, IVF, Levophed - discontinue Levophed & IVF Renal, Electrolytes: TOD (improving) - Admission BUN 72, Creatinine 3.29 - Today DOA#3: BUN 37, Creatinine 1.68, I/O: +5296 - likely secondary to DKA, hypovolemia - Monitor UOP with Blevins catheter & BMP Anion Gap Metabolic Acidosis (resolved) - On ER arrival: pH 7.00, anion gap 30 - Today DOA#3: pH 7.45, anion gap: 8 - Likely secondary to DKA, lactic acidosis, uremia - Salicylates wnl levels - s/p bicarb pushes, IVF - Continue to trend ABG Monitor electrolytes and replete as needed. BMP, mag, phos, q daily GI/Nutrition: Reported Episode of Coffee-ground Emesis / Possible Hematemesis - One reported episode of coffee-ground appearing emesis per patient's friend on admission, supported by mouth/throat PE in ER - On ER arrival: Hgb 8.8 - s/p OGT placement & removal - discontinue Protonix ggt & IV Octreotide given low suspicion for active bleeding - Monitor H&H Hyperammonemia (resolved) - On ER arrival: ammonia 134 - resolved on DOA#2 ammonia 43 -Likely secondary to DKA/HHS and critically ill state - Likely contributing to metabolic encephalopathy - s/p following fluid resuscitation, insulin gtt, lactulose Endocrine: Mixed DKA / HHS - On ER arrival: BSG 1439, metabolic acidosis & electrolyte abnormalities as described above - acidosis, ketonuria, elevated serum osmolality; suspect mixed component of DKA and hyperosmolar/HHS state - A1c: 10.3% - Transition to Lantus w/ sliding scale - Continue to monitor BSG & electrolytes - Per on admission, patient is non-adherent with his diabetic regimen at home. Home regimen includes Lantus 25 units daily with sliding scale insulin. Will investigate further and engage in conversation regarding barriers to adherence once patient less obtunded.Will require diabetic education consulta tion when appropriate ID: Possible Sepsis / Septic Shock (previously suspected, less likely) - On admission noted to have WBC count of 23.42 with left shift, lactate 3.2, procalcitonin 13.55; pt was also noted to be tachycardic (114), tachypneic (26), hypotensive, hypothermic (33.4), and hypovolemic; previously suspected to be caused by sepsis - TSH wnl - COVID-19, RSV, influenza, MRSA swab negative. - Culture: no growth 24h - CT head, chest, abdomen, pelvis: no significant findings pointing to infection - Discontinue Vancomycin/Zosyn & discontinue Levophed given low suspicions for bacterial infection Heme: Normocytic Anemia: - Admission hemoglobin 8.8 with normocytic MCV (85.2); unknown baseline - Stable; Today DOA#3 hgb 9.9-10.5 - Unclear etiology. Reported emesis with coffee-ground appearance noted on admission, GIB certainly a possibility. Code status: FULL CODE Diet: NPO, advance as tolerated after swallow trial DVT ppx: Heparin Disposition: Care per ICU Plan: I saw the patient with Oksana BISWAS, separately performed my own history and physical exam, and assisted in the creation of the above documentation. Modifications/clarifications as follows: no e/o infectious source, unlikely sepsis, d/c ABX. Otherwise, as below outlined by attending physician. Admission and Anticipated Discharge Date Admission Date: February 06, 2022 Supervising Physician Co-Signing Physician Notes I also saw the patient with the resident physician team and confirmed martinez portions of the history and physical examination. Agree with impression plan as noted in the resident documentation. Upon our examination midafternoon, he is now extubated. He is awake and alert. He is a little confused. Exam 78/60, 104, 24, 37.7, 93% on room air Regular rhythm, tachycardic Slightly coarse lung sounds, respirations are nonlabored, adequate oxygenation on room air Abdomen is nondistended Neuro Metabolic encephalopathy, improving Discontinue lactulose Cardiovascular troponinemia downtrending Episode of atrial fibrillation, resolved, on systemic anticoagulation Echocardiogram shows preserved left ventricular function Blood pressures borderline off pressors at moment Respiratory Acute hypoxic respiratory failure, extubated Maintaining adequate oxygenation GI Hemoglobin stable Continue Protonix Gastroenterology consult reviewed Renal/ Electrolyte abnormality resolved Acute renal failure, improved Continue to monitor Pull Blevins Endocrine Transition to subcutaneous insulin per pharmacy protocol Embark on extensive diabetes education once his sensorium has improved ID Antibiotics have been discontinued Subjective Pt was seen at bedside this morning. He was awake and appeared comfortable. He reported feeling "okay", was alert to person and place. Overall, conversation and assessment was limited due to patient confusion. Addendum: Pt was seen again with the team in the afternoon with improved alertness noted. Review of Systems Review of Systems: as per HPI Physical Exam Constitutional: cooperative and comfortable Respiratory: normal respiratory effort, lungs clear to auscultation Cardiovascular: RRR, no murmur, no edema Gastrointestinal (Abdomen): Inspection/Auscultation: normal bowel sounds Percussion/Palpation: abdomen nontender Normal BS Musculoskeletal: no cyanosis or clubbing, unable to assess strength given altered mental status Psychiatric: Orientation: alert, oriented to person and oriented to place; + not oriented to time Eye Contact: + poor eye contact Results & Data Results & Data ([facility]) Vital Signs (Past 12 Hours) Vital Signs Temp Pulse Resp BP Pulse Ox Pulse Ox 02/08/22 07:40 89 12 99 02/08/22 05:00 37.8 C H 93 H 11 L 102/67 98 02/08/22 04:00 37.9 C H 94 H 10 L 98/66 L 99 02/08/22 03:55 95 H 12 99 02/08/22 03:00 37.8 C H 95 H 14 100/63 98 02/08/22 02:00 37.8 C H 95 H 12 106/71 98 02/08/22 01:00 37.9 C H 96 H 12 99/65 L 98 02/08/22 00:00 37.9 C H 98 H 12 106/66 96 02/07/22 23:28 12 02/07/22 23:15 100 H 14 99 02/07/22 23:00 37.8 C H 98 H 14 92/62 L 99 02/07/22 22:00 37.7 C H 98 H 14 95/62 L 99 02/07/22 21:00 37.7 C H 101 H 14 103/63 98 02/07/22 20:15 101 H 14 98 02/07/22 20:10 98 02/07/22 20:00 37.7 C H 102 H 12 102/66
[2022-02-08] MEDS: NOREPINEPHRINE/D5W 8 MG/508 ML BAG IV SCH ×2 (08:11→14:07)
--- NOTE | 2022-02-08 08:34 | XRay Report ---
XR chest 1V portable CLINICAL HISTORY: Follow-up suspected airspace opacities. Status post intubation. COMPARISON STUDY: 02/07/2022 TECHNIQUE: 1 view of the chest FINDINGS: Single frontal view of the chest demonstrates the cardiomediastinal silhouette to be within normal li mits. Tubes and catheters are unchanged. The lungs are clear of alveolar opacities. There is no evide nce for pleural effusion. There is no evidence for vascular congestion. There is no acute osseous pat hology. IMPRESSION: 1. Compared to the previous examination, there is no evidence for acute chest disease. Tubes and cath eters are unchanged. ACT 112: Negative or not required by law. Electronically signed by: Marcus Abdi M.D. 02/08/2022 8:33 AM
--- NOTE | 2022-02-08 09:43 | Critical Care Progress Note ---
Date of Service February 08, 2022 Assessment & Plan (1) Admitted to intensive care unit: Plan: Reason Critically Ill: 61-year-old male who presents critically ill with a ventricular dysrhythmia secondary to hyperkalemia in the setting of DKA with associated high anion gap metabolic acidosis with respiratory failure and profound hypotension. NEURO - * CAM ICU: Unable to assess * Metabolic encephalopathy: * CT head/brain without acute findings. CARDIAC/VASCULAR - * Hypotension: * Again multifactorial in the presumed profoundly hypovolemic patient and significantly acidemic patient. * Check random cortisol. * Levophed initiated. * NSTEMI: * Continuing heparin for 24 hours given persistent hypotension * Monitor on telemetry. RESPIRATORY - * Acute hypoxic respiratory failure: Resolved GI/NUTRITION - * Question episode of coffee ground emesis last PM: * Discontinuing PPI and octreotide * No change in H&H and patient is on heparin * Hyperammonemia: resolved * Discontinue lactulose RENAL/LYTES - * Hyperkalemia: Resolved * Hypokalemia: Resolved * Acute Renal Failure: Improved * HAGMA: Resolved - * Blevins in place - Strict I&Os. ENDO - * DKA: * BSGs per unit protocol. ISS --> gtt per unit policy. HEME - * Anemia: * Of ? etiology. * Type and crossed. * Iron studies and folate ordered ID - * Severe Sepsis w/ Septic Shock: Unlikely * Discontinuing antibiotics LINES/IV ACCESS - * PIVs x3 * ETT extubated this a.m. * Blevins * RIGH IJ CVL * RIGHT Rad Art Line: Discontinue DVT PROPHYLAXIS - * SCDs I have personally spent 45 minutes of critical care time in the direct management of this patient. This is a life/limb threatening event. This includes time spent evaluating patient, direct bedside care, chart review, placing orders, interpretation of diagnostic studies, discussion with consultants, patient, and family members, as well as other required patient management activities. This time is exclusive of all separately billable procedures, and teaching time and separate from and in addition to any other critical care service time. (2) DKA (diabetic ketoacidosis): (3) Severe sepsis: (4) Acute respiratory failure with hypoxia: (5) ARF (acute renal failure): (6) Hyperkalemia: (7) High anion gap metabolic acidosis: (8) Hypothermia: (9) Ventricular arrhythmia: (10) Metabolic encephalopathy: (11) Type 2 diabetes mellitus: Admission and Anticipated Discharge Date Admission Date: February 06, 2022 Subjective No overnight events, extubated this am Physical Exam Physical Exam: General: Sedated. nontoxic. Skin: Warm, dry, Head: Atraumatic Ears, nose, mouth and throat: airway obscured by endotracheal tube Cardiovascular: Normal peripheral perfusion Respiratory: Ventilator settings reviewed Gastrointestinal: Non distended Musculoskeletal: No deformity Results & Data Results & Data ([facility]) Vital Signs (Past 12 Hours) Vital Signs Temp Pulse Resp BP Pulse Ox 02/08/22 07:40 89 12 99 02/08/22 05:00 37.8 C H 93 H 11 L 102/67 98 02/08/22 04:00 37.9 C H 94 H 10 L 98/66 L 99 02/08/22 03:55 95 H 12 99 02/08/22 03:00 37.8 C H 95 H 14 100/63 98 02/08/22 02:00 37.8 C H 95 H 12 106/71 98 02/08/22 01:00 37.9 C H 96 H 12 99/65 L 98 02/08/22 00:00 37.9 C H 98 H 12 106/66 96 02/07/22 23:28 12 02/07/22 23:15 100 H 14 99 02/07/22 23:00 37.8 C H 98 H 14 92/62 L 99 02/07/22 22:00 37.7 C H 98 H 14 95/62 L 99 Critical Care Results & Data Vital Signs (Past 12 Hours) Vital Signs Temp Pulse Resp BP Pulse Ox 02/08/22 07:40 89 12 99 02/08/22 05:00 37.8 C H 93 H 11 L 102/67 98 02/08/22 04:00 37.9 C H 94 H 10 L 98/66 L 99 02/08/22 03:55 95 H 12 99 02/08/22 03:00 37.8 C H 95 H 14 100/63 98 02/08/22 02:00 37.8 C H 95 H 12 106/71 98 02/08/22 01:00 37.9 C H 96 H 12 99/65 L 98 02/08/22 00:00 37.9 C H 98 H 12 106/66 96 02/07/22 23:28 12 02/07/22 23:15 100 H 14 99 02/07/22 23:00 37.8 C H 98 H 14 92/62 L 99 Lab & Micro Results (Past 24 Hours) RBC 3.16 M/uL (4.7-6.1) L 02/08/22 WBC 18.06 K/uL (4.8-10.8) H 02/08/22 Hgb 9.9 g/dL (14.0-18.0) L 02/08/22 Hct 28.1 % (42-52) L 02/08/22 MCV 88.9 fL (80-100) 02/08/22 MCH 31.3 pg (25-34) 02/08/22 MCHC 35.2 g/dL (32-36) 02/08/22 RDW Standard Deviation 40.4 fL (36.4-46.3) 02/08/22 RDW Coefficient of Variation 12.6 % (11.5-14.5) 02/08/22 Plt Count 172 K/uL (130-400) 02/08/22 MPV 10.8 fL (7.4-10.4) H 02/08/22 Neutrophils (%) (Auto) 86.3 % 02/08/22 Lymphocytes (%) (Auto) 7.4 % 02/08/22 Monocytes # (Auto) 1.04 K/uL (0.11-0.59) H 02/08/22 Eosinophils # (Auto) 0.00 K/uL (0-0.5) 02/08/22 Immature Granulocyte % (Auto) 0.5 % 02/08/22 Neutrophils # (Auto) 15.60 K/uL (1.4-6.5) H 02/08/22 Lymphocytes # (Auto) 1.33 K/uL (1.2-3.4) 02/08/22 Monocytes # (Auto) 1.04 K/uL (0.11-0.59) H 02/08/22 Eosinophils # (Auto) 0.00 K/uL (0-0.5) 02/08/22 Basophils # (Auto) 0.00 K/uL (0-0.2) 02/08/22 Immature Granulocyte # (Auto) 0.09 K/uL (0.00-0.02) H 02/08/22 Red Blood Cell Morphology Unremarkable 02/07/22 Na 140 mmol/L (136-145) 02/08/22 K 4.2 mmol/L (3.5-5.1) 02/08/22 Cl 105 mmol/L (98-107) 02/08/22 CO2 27 mmol/L (21-32) 02/08/22 Anion Gap 8 (3-11) 02/08/22 BUN 37 mg/dl (6-23) H 02/08/22 Creatinine 1.68 mg/dl (0.6-1.4) H 02/08/22 Estimated GFR ( Amer) 50.1 ml/min 02/08/22 Estimated GFR (Non-Af Amer) 43.2 ml/min 02/08/22 BUN/Creatinine Ratio 22.0 (10-20) H 02/08/22 Glu 167 mg/dl (70-99(Fasting)) H 02/08/22 Ca 6.7 mg/dl (8.5-10.1) L 02/08/22 Phosphorus Level 3.1 mg/dl (2.5-4.9) 02/08/22 Total Bilirubin 0.7 mg/dl (0.2-1.0) 02/08/22 Direct Bilirubin 0.3 mg/dl (0-0.2) H 02/08/22 AST 147 U/L (13-39) H 02/08/22 ALT 68 U/L (7-52) H 02/08/22 Alkaline Phosphatase 81 U/L (34-104) 02/08/22 TP 5.2 gm/dl (6.0-8.3) L 02/08/22 Albumin 2.8 gm/dl (3.4-5.0) L 02/08/22 Mg 1.9 mg/dl (1.7-2.4) 02/08/22 00:15 02/08/22 Calcium Level 6.7 mg/dl (8.5-10.1) L 02/08/22 06:36 02/08/22 Fred Test NA 02/08/22 05:13 02/08/22 Microbiology 02/06/22 20:25 Aerobic Blood Culture - Preliminary Blood No growth in Aerobic bottle after 24 hours. Anaerobic Blood Culture - Preliminary No growth in Anaerobic bottle after 24 hours. 02/06/22 20:26 Aerobic Blood Culture - Preliminary Blood No growth in Aerobic bottle after 24 hours. Anaerobic Blood Culture - Preliminary No growth in Anaerobic bottle after 24 hours. Diagnostic Findings (Past 24 Hours) Chest X-Ray 02/08/22 07:00 XR chest 1V portable CLINICAL HISTORY: Follow-up suspected airspace opacities. Status post intubation. COMPARISON STUDY: 02/07/2022 TECHNIQUE: 1 view of the chest FINDINGS: Single frontal view of the chest demonstrates the cardiomediastinal silhouette to be within normal limits. Tubes and catheters are unchanged. The lungs are clear of alveolar opacities. There is no evidence for pleural effusion. There is no evidence for vascular congestion. There is no acute osseous pathology. IMPRESSION: 1. Compared to the previous examination, there is no evidence for acute chest disease. Tubes and catheters are unchanged. ACT 112: Negative or not required by law. Electronically signed by: Marcus Abdi M.D. 02/08/2022 8:33 AM I & O Totals 24 Hours 02/07/22 02/08/22 02/09/22 06:59 06:59 06:59 Intake Total 5927.034 / 5927.034 7196.013 / 7196.013 1029.569 / 1029.569 Output Total 2695 / 2695 2210 / 2210 100 / 100 Balance 3232.034 / 3232.034 4986.013 / 4986.013 929.569 / 929.569 Cumulative 02/06/22 19:51 thru 02/08/22 10:42 Intake Total 20532.616 Output Total 5005 Balance 9147.616 RT Ventilator Mngmt (Last Documented) Ventilator Ordered Settings Ventilator Support Mode Assist Control 02/08/22 07:40 Respiratory Rate 12 02/08/22 07:40 Ventilator Tidal Volume 450 02/08/22 07:40 Setting Minute Ventilation 5.4 02/08/22 07:40 Positive End Expiratory 5 02/08/22 07:40 Pressure Fraction of Inspired Oxygen 24 02/08/22 07:40 Ventilator - PT Measurements Respiratory Rate 12 Exhaled Tidal Volume 450 Minute Ventilation 5.4 Peak Inspiratory Airway 18 Pressure Plateau Pressure 14 Respiratory Cycle Inspiratory: 1:4 Expiratory Ratio Inspiratory Phase Time 1 End-Tidal CO2 37 Static Lung Compliance 50.00 Dynamic Lung Compliance 34.62 Normal Static Lung Compliance 48.00 Patient Measurements Comment Ventilator settings changed post-ABG per Sudhakar Zhou PA-C. Coding Level of Care Code Critical Care 1st 30-74 mins Diagnoses Admitted to intensive care unit Z78.9 DKA (diabetic ketoacidosis) E11.10 Severe sepsis A41.9; R65.20 Acute respiratory failure with hypoxia J96.01 ARF (acute renal failure) N17.9 Hyperkalemia E87.5 High anion gap metabolic acidosis E87.2 Hypothermia T68.XXXA Ventricular arrhythmia I49.9 Metabolic encephalopathy G93.41 Type 2 diabetes mellitus E11.9
[2022-02-08 12:44] LABS: Partial Thromboplastin Ratio 2.3
[2022-02-08 12:45] LABS: Partial Thromboplastin Time 62.1 Seconds (21.0-31.0)
--- NOTE | 2022-02-08 14:01 | Pharmacy Report ---
Pharmacy Glycemic Short Note 2 - Date of Service February 08, 2022 - Glycemic Short BSG Results (Last 24 hours): 02/07/22 02/07/22 02/07/22 13:57 15:03 15:32 Glucose 213 H POC Glucose POC Glucose (other) 305 H 254 H 02/07/22 02/07/22 02/07/22 16:05 17:03 18:10 Glucose POC Glucose POC Glucose (other) 215 H 187 H 152 H 02/07/22 02/07/22 02/07/22 19:07 20:43 21:23 Glucose POC Glucose POC Glucose (other) 124 H 78 159 H 02/07/22 02/07/22 02/08/22 22:36 23:14 00:05 Glucose POC Glucose POC Glucose (other) 104 H 93 97 02/08/22 02/08/22 02/08/22 00:15 03:53 06:36 Glucose 86 167 H POC Glucose POC Glucose (other) 146 H 02/08/22 02/08/22 08:10 11:18 Glucose POC Glucose 177 H 169 H POC Glucose (other) OUTPATIENT ANTIDIABETIC REGIMEN: * Lantus/Novolin R (unknown doses); clarifying * HbA1C- 10.3% (02/07/22) ASSESSMENT: 02/08 * Last evening, dextrose containing IVF were modified and dextrose removed. Insulin drip subsequently titrated itself to off by ~2200. Patient remained intubated/sedated. AG remained closed this AM, HCO3 >15. * Patient extubated this AM. Weaning norepinephrine, heparin drip continues and remains NPO. * Recieved 40 units of Lantus yesterday ~ 1100 in addition to insulin infusion which was running ~18unit/hr most of the day. BSG this AM 146, 177mg/dL with no basal since drip discontinued last night. Given numerous variable stressors, plan for basal dosing today approximately weight/stress 3. Pt reportedly on Lantus 25units daily @ home however non-compliant. 20 units of Lantus this AM, and will scale HS dose pending BSG. * Novolog q4h based upon weight/stress of 3 while NPO 02/07 * Patient is critically ill; currently intubated/sedated requiring vasopressor s upport and IV antibiotics in the setting of DKA/HHS associated w/ high anion gap metabolic acidosis, respiratory failure secondary to encephalopathy and septic shock. Initiated on an insulin drip last evening per [facility] protocol (goal BSG 250-350). Initial labs: BSG- 1439mg/dL, pH 7.16, AG-29, Bicarb-8. Pharmacy consulted to assist with glycemic management. * NPO, dextrose containing IVF include heparin, octreotide, and protonix drips. 1/2NS w/ 20mEQ KAcet running at 150mL/hr overnight into this AM. * Insulin infusion running at ~ 12unit/hr average since last night. This AM -- pH 7.46, Bicarb-19, AG-24. Plan for 40 units Lantus X 1 today to assist with drip weaning as patient stabilizes. D5 containing fluids to be added once BSG within goal range. PLAN FOR INPATIENT GLYCEMIC CONTROL: * Hold outpatient oral diabetes medications * Basal insulin * Lantus 20 units qAM/ HS scale * Bolus insulin * NovoLog per scale ACHS or Q4hrs while NPO * Goal Range: Low 110 mg/dL - High 140 mg/dL * Nutritional / Prandial insulin per carb ratio, 7g/unit. Correction: 20mg/dL/unit
[2022-02-08] MEDS: DEXTROSE 50% 50 ML SYRINGE IV PRN ×2 (20:08→23:34)
[2022-02-08] MEDS ORDERED: INSULIN GLARGINE SOLOSTAR 100 UNITS/ML 3 ML PEN SC SCH (21:00)
[2022-02-08] MEDS: NORMOSOL-R 1,000 ML IV SCH (23:07)
[2022-02-09] MEDS: INSULIN ASPART PER UNIT SC SCH ×5 (03:35→21:50)
[2022-02-09 06:15] LABS: BUN Creatinine Ratio 25.9 (10-20); Calcium 7.2 mg/dl (8.5-10.1); Creatinine Clr Calc Pharmacy 73.4 ml/min; Est GFR (African American) 78.3 ml/min; Est GFR (Non-African American) 67.6 ml/min; Magnesium 1.9 mg/dl (1.7-2.4); Phosphorus 2.3 mg/dl (2.5-4.9); Potassium 3.9 mmol/L (3.5-5.1)
[2022-02-09 06:21] LABS: Partial Thromboplastin Ratio 1.8
[2022-02-09 06:30] LABS: Ferritin 370.8 ng/ml (8-388)
[2022-02-09 06:33] LABS: Partial Thromboplastin Time 50.8 Seconds (21.0-31.0)
[2022-02-09 06:50] LABS: Folate (Folic Acid) 17.02 ng/ml (>5.38)
[2022-02-09] MEDS: HEPARIN SODIUM/DEXTROSE 25,000 UNITS/500 ML BAG IV SCH (07:00)
[2022-02-09 08:07] LABS: Hematocrit (blood only) 24.1 % (42-52); Hemoglobin 8.3 g/dL (14.0-18.0); Mean Corpuscular Hemoglobin 31.6 pg (25-34); Mean Corpuscular Hgb Conc 34.4 g/dL (32-36); Mean Corpuscular Volume 91.6 fL (80-100); Mean Platelet Volume 11.4 fL (7.4-10.4); Platelet Count 101 K/uL (130-400); RDW Coefficient of Variation 13.4 % (11.5-14.5); RDW Standard Deviation 44.5 fL (36.4-46.3); Red Blood Count 2.63 M/uL (4.7-6.1); Reticulocyte % 0.6 % (0.5-2.0); Reticulocytes # < 0.02 10^6/uL (0.02-0.10); White Blood Count 7.88 K/uL (4.8-10.8)
--- NOTE | 2022-02-09 09:46 | Hospitalist Progress Note ---
Date of Service February 09, 2022 Assessment & Plan (1) DKA (diabetic ketoacidosis): Plan: 61 yo M with history of T2DM, hyperlipidemia, and chronic back pain who presented (02/06) via EMS with AMS, high-anion gap hyperglycemia, hypotension, metabolic encephalopathy likely secondary to DKA, afib with rvr with RBBB (now resolved), and respiratory failure with hypoxia initially requiring intubation with ventilation. He is overall improving, he is now extubated. 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 - Toxicology (02/06): negative, for the exception of Marijuana - Continue to monitor mental status changes - order MRI to further workup etiology Chronic pain: - History of chronic back pain with scheduled and as needed use of oxycodone ER and IR - Hold for now. Resp: Ventilatory dependent respiratory failure with hypoxia (resolved DOA#3) - Intubated and mechanically ventilated on admission; secondary to encephalopathy and inability to protect airway - Chest CT (03/09): Trace b/l pleural effusions w/ associated airspace opacities supporting atelectasis. - Extubated DOA#3 in AM, w/o stridors; continues to sat well on room air Cardiovascular: Single Episode of Atrial Fibrillation - On ER arrival: EKG showed Afib w/ Rvr; no Afib on Tele since - CHADSVASc score 2 - Likely secondary to hyperkalemia, hypovolemia and DKA - Echo (02/07): Grade I diastolic dysfunction - TTE: no significant findings - discontinue heparin - consider anticoagulation regimen & Holter monitor upon discharge; plan to have discussion with him and once mentation is improved Hypotension (resolved) - 60/30 per EMS report, 79/54 on ER arrival s/p 500cc by EMS - Suspect secondary to DKA/HHS - Random cortisol (DOA#3): 32.45 - Normotensive since 2AM resolved with fluid resuscitation & Levophed Elevated Troponin/Type II NSTEMI - [place], [place] [address], downtrended subsequently - with the exception of he first EKG showing Afib with RVR and RBBB (resolved), no conduction/repolarization abnormalities noted - Likely secondary to demand ischemia in the setting of hypovolemia, acidosis - Was on heparin drip for 3 days, since discontinued Renal, Electrolytes: TOD (improving) - Admission BUN 72, Creatinine 3.29 - Today DOA#4: BUN 30, Creatinine 1.16, I/O: 353 - likely secondary to DKA, hypovolemia - Continue Plasma-Lyte at 80 cc/hr - Continue to monitor BMP Anion Gap Metabolic Acidosis (resolved DOA#3) - On ER arrival: pH 7.00, anion gap 30 - resolved with treatment of DKA/HHS and fluid resuscitation - Likely secondary to DKA, lactic acidosis, uremia Monitor electrolytes and replete as needed. BMP, mag, phos, q daily GI/Nutrition: Transaminitis - On ER arrival AST 147, ALT 68; trending up since - Today: AST 278, ALT 128, ALP normal, Total bili 1 - suspect liver shock 2/2 hypoperfusion, no significant findings pointing to acalculous cholecystitis - Pt currently asymptomatic, no sig findings on physical exam - Continue to monitor & trend Reported Episode of Coffee-ground Emesis / Possible Hematemesis - One reported episode of coffee-ground appearing emesis per patient's friend on admission, supported by mouth/throat PE in ER; no further episodes since - Hg 8.3-10.5 since arrival, unclear of pt baseline - s/p OGT placement & removal, Protonix ggt & IV Octreotide - Monitor H&H Hyperammonemia (resolved DOA#2) - On ER arrival: ammonia 134 - resolved on DOA#2 ammonia 43 with fluid resuscitation, insulin gtt, lactulose -Likely secondary to DKA/HHS and critically ill state Endocrine: Mixed DKA / HHS (resolved) - On ER arrival: BSG 1439, metabolic acidosis & electrolyte abnormalities as described above - Acidosis, ketonuria, elevated serum osmolality; suspect mixed component of DKA and hyperosmolar/HHS state - A1c: 10.3% - Transition to Lantus w/ sliding scale - Continue to monitor BSG & electrolytes - Per on admission, patient is non-adherent with his diabetic regimen at home. Home regimen includes Lantus 25 units daily with sliding scale insulin. Will investigate further and engage in conversation regarding barriers to adherence once patient mentation improves. - Consider diabetic education consultation when appropriate ID: Possible Sepsis / Septic Shock (previously suspected - unlikely) - On admission noted to have WBC count of 23.42 with left shift, lactate 3.2, procalcitonin 13.55; pt was also noted to be tachycardic (114), tachypneic (26), hypotensive, hypothermic (33.4), and hypovolemic; previously suspected to be caused by sepsis - TSH wnl - COVID-19, RSV, influenza, MRSA swab negative. - Culture: no growth 48hr - CT head, chest, abdomen, pelvis: no significant findings pointing to infection - s/p Vancomycin/Zosyn, Levophed discontinued DOA#3 Heme: Normocytic Anemia: - Admission hemoglobin 8.8 with normocytic MCV (85.2); unknown baseline - Today DOA#4 hgb 8.3, hct 24.1, plt 101 (dropped from 246 at adm) - Unclear etiology. Reported emesis with coffee-ground appearance noted on admission. Unclear if GIB contributed. Thrombocytopenia - Noted on labs on 02/09, plt 101 - trend plt due to risk for heparin-induced immune thrombocytopenia Code status: FULL CODE Diet: Clear liquid, carb consistent/DM2 DVT ppx: Heparin Disposition: Med Surg w/ Tele Admission and Anticipated Discharge Date Admission Date: February 06, 2022 Supervising Physician Co-Signing Physician Notes I also saw the patient with the resident physician team and confirmed martinez portions of the history and physical examination. Agree with impression plan as noted in the resident documentation. Upon our examination midafternoon, the patient is alert, more so than yesterday, but still with considerable confusion. He is not clear as to where he lives; I question whether he is having some word finding difficulties.He will follow basic commands.I do not appreciate any slurred speech. Exam 111/74, 87, 18, 36.9, 96% on room air Regular rhythm, tachycardic Lungs are clear with nonlabored respirations Abdomen is nondistended Data WBC 7.88, hemoglobin 8.3, platelet count 101 Sodium 143, potassium 3.9 Neuro Metabolic encephalopathy, consider some element of anoxic encephalopathy MRI brain Cardiovascular troponinemia downtrending Episode of atrial fibrillation, resolved, heparin drip has been discontinued Echocardiogram shows preserved left ventricular function Blood pressures improved Respiratory Acute hypoxic respiratory failure, extubated Maintaining adequate oxygenation Chest x-ray shows no acute pulmonary process GI Hemoglobin stable Continue Protonix, PO Gastroenterology consult reviewed Renal/ Electrolyte abnormality resolved Acute renal failure, improved Continue to monitor Blevins catheter has been removed Endocrine Transition to subcutaneous insulin per pharmacy protocol Embark on extensive diabetes education once his sensorium has improved ID Antibiotics have been discontinued No recurrence of fever Subjective Pt was seen at bedside this morning. He was awake and alerted to person (FN & LN) and place, not to time. He did not appear in distress, agitated, or combative. He seems to understand he is in the hospital as a complication of severe hyperglycemia, and confirmed that he had not been adherent with his medication for at least a month. He has markedly improved cognitively since yesterday, as demonstrated by his ability to converse and follow directions this morning. Update #1: Pt displayed having word finding difficulties & confusion when we rounded on him in the afternoon. Update #2: Was able to talk to pt's in person while she was visiting him, and obtain a more thorough history: Metabolic Encephalopathy - believes he is 50% baseline cognitively - has hx of slow speech & speech delay. She described it as him having to think really hard about what he has to say. She does not believe he has cognitive delay. - MRI (several years ago) ordered due to seizures showed brain atrophy. 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 DKA/HHS - Pt was diagnosed with juvenile T1DM at 20. - witnessed 10 seizures (associated with hypoglycemia) since she's met him 10 years ago. Though she's been told he has had "a lot" of seizures prior to them meeting. - He has a really bad diet and is very non-compliant. [phone] - still not 100% - cognitive: usually pretty good. 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 Before she him, he's had a lot. Since he's been with her, she's witnessed 10 seizures due to hypoglycemia. If he goes low, there is an alarm (set at 70, usually waits until 50 because he procrastinates). Slow speech, speech delay. No deficit in knowing things. really gotta think about. She thinks he's at 50% has a yazdanism that came to the house on Sunday. Seemed his normal self. Between sunday afternoon and sunday morning. He ingested a lot of sugar, he has a really bad diet, very non-compliant. Removed his DexCom. She doesn't really know want happened. He eats a lot of candy. Takes Lantus every morning, really good at taking that Novalog supposed to be on a sliding scale, doesn't count his carbs. 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 Bower based in [place], [place]) "if you have a lot of carb, take 8; if you don't have a lot of carb 3-4) He'll take 15-20, sometimes he'll overcompensate by eating a lot of candy for it to even. lives in [place], and he was taking care of her dog while she was on vacation. Throat clearing is a normal tick His RBC have been running low for the past 2 years sent him for more blood work Lantus 25 Novalog sliding scale Lisinopril 20 mg in AM once daily atorvastatin 40 mg PM once daily Zoloft 100 mg for depression Seroquel 200 mg for sleep Oxycontane 20mg bid Oxycodone 15 prn Aspirin 81 mg Ibuprofen 600 mg as needed Testosterone 1 mg once a week OTC vitamins, coccutane papaverine 20 mg/ml alprostadil 20mcg/ml,phentolamine, atropine from online pharmacy; thinks he used it a few days ago Viagra Nexium, takes too many and buys more over counter. Takes more because it doesn't work. no hx of afib, has witnessed black emesis, and black stool. Last summer. They said he had acute diverticulitis. his previous colonoscopies have been normal, last one was year. 2-3 years ago of black emesis, and black stool. Nothing was done. GI saw thrush in his esophagus, treated with abx. Takes Ibuprofen sudafed - takes too many, 1 per day; 4-5 a day per medical marijuana card, . Just gets vapes on uses a lof THC CBD creams for is back Has chronic GERD 276 Review of Systems Review of Systems: See HPI. Physical Exam Eyes: PERRL, conjunctivae normal, anicteric sclerae Respiratory: normal respiratory effort, lungs clear to auscultation Cardiovascular: RRR, no murmur, no edema Gastrointestinal (Abdomen): normal bowel sounds, soft, nontender, no hepatosplenomegaly Musculoskeletal: no cyanosis or clubbing, extremities motor strength 5/5 Neurologic: moves all extremities, awake and + confused (word finding difficulties) Psychiatric: Orientation: alert, oriented to person and oriented to place; + not oriented to time Eye Contact: + fair eye contact Results & Data Results & Data ([facility]) Vital Signs (Past 12 Hours) Vital Signs Temp Pulse Resp BP Pulse Ox 02/09/22 06:00 99 H 20 115/60 94 02/09/22 04:54 36.9 C 02/09/22 04:50 97 H 24 103/60 96 02/09/22 03:30 96 H 20 100/61 95 02/09/22 02:13 98 H 23 105/68 95 02/09/22 02:11 100 H 22 105/68 96 02/09/22 02:00 36.9 C 103 H 17 91 02/09/22 01:00 100 H 15 94 02/09/22 00:26 101 H 17 91/58 L 98 02/09/22 00:17 101 H 26 H 02/09/22 00:00 97 H 23 02/08/22 23:05 36.9 C 02/08/22 22:31 99 H 19 92/53 L 95 02/08/22 22:23 24 87/53 L 97 02/08/22 22:01 99 H 18 87/56 L 02/08/22 22:00 100 H 23 94 02/08/22 21:05 103 H 21 95
[2022-02-09 09:56] LABS: Marijuana Quant, GCMS Urine 33 ng/mL (<5)
--- NOTE | 2022-02-09 10:12 | Critical Care Progress Note ---
Date of Service February 09, 2022 Assessment & Plan (1) Admitted to intensive care unit: Plan: Reason Critically Ill: 61-year-old male who presents critically ill with a ventricular dysrhythmia secondary to hyperkalemia in the setting of DKA with associated high anion gap metabolic acidosis with respiratory failure and profound hypotension. NEURO - * CAM ICU: Unable to assess * Metabolic encephalopathy: improving * CT head/brain without acute findings. CARDIAC/VASCULAR - * Hypotension: resovled * NSTEMI: * Stop Heparin * Monitor on telemetry. RESPIRATORY - * Acute hypoxic respiratory failure: Resolved GI/NUTRITION - * Hyperammonemia: resolved * Discontinue lactulose RENAL/LYTES - * Hyperkalemia: Resolved * Hypokalemia: Resolved * Acute Renal Failure: Improved * HAGMA: Resolved - * Blevins discontinue today ENDO - * DKA: * BSGs per unit protocol. ISS --> gtt per unit policy. HEME - * Anemia: * Of ? etiology. * Type and crossed. * Iron studies and folate ordered ID - * Severe Sepsis w/ Septic Shock: Unlikely * Discontinuing antibiotics LINES/IV ACCESS - * PIVs x3 * Blevins * RIGH IJ CVL: Discontinue DVT PROPHYLAXIS - * SCDs Stable for downgrade out of ICU. (2) DKA (diabetic ketoacidosis): (3) Severe sepsis: (4) Acute respiratory failure with hypoxia: (5) ARF (acute renal failure): (6) Hyperkalemia: (7) High anion gap metabolic acidosis: (8) Hypothermia: (9) Ventricular arrhythmia: (10) Metabolic encephalopathy: (11) Type 2 diabetes mellitus: Admission and Anticipated Discharge Date Admission Date: February 06, 2022 Subjective reports feeling ok, however, disoriented. Physical Exam Physical Exam: General: Sedated. nontoxic. Skin: Warm, dry, Head: Atraumatic Ears, nose, mouth and throat: airway obscured by endotracheal tube Cardiovascular: Normal peripheral perfusion Respiratory: Ventilator settings reviewed Gastrointestinal: Non distended Musculoskeletal: No deformity Results & Data Results & Data ([facility]) Vital Signs (Past 12 Hours) Vital Signs Temp Pulse Resp BP Pulse Ox 02/09/22 09:00 96 H 20 96 02/09/22 08:00 89 L 02/09/22 07:00 96 H 21 93 02/09/22 06:00 99 H 20 115/60 94 02/09/22 04:54 36.9 C 02/09/22 04:50 97 H 24 103/60 96 02/09/22 03:30 96 H 20 100/61 95 02/09/22 02:13 98 H 23 105/68 95 02/09/22 02:11 100 H 22 105/68 96 02/09/22 02:00 36.9 C 103 H 17 91 02/09/22 01:00 100 H 15 94 02/09/22 00:26 101 H 17 91/58 L 98 02/09/22 00:17 101 H 26 H 02/09/22 00:00 97 H 23 02/08/22 23:05 36.9 C 02/08/22 22:31 99 H 19 92/53 L 95 02/08/22 22:23 24 87/53 L 97 Coding Level [facility] Code [facility] Diagnoses Admitted to intensive care unit Z78.9 DKA (diabetic ketoacidosis) E11.10 Severe sepsis A41.9; R65.20 Acute respiratory failure with hypoxia J96.01 ARF (acute renal failure) N17.9 Hyperkalemia E87.5 High anion gap metabolic acidosis E87.2 Hypothermia T68.XXXA Ventricular arrhythmia I49.9 Metabolic encephalopathy G93.41 Type 2 diabetes mellitus E11.9
[2022-02-09] MEDS ORDERED: CALCIUM GLUCONATE 10% 1,000 MG in DEXTROSE 5% 50 ML IV ONE (10:15)
[2022-02-09] MEDS: NORMOSOL-R 1,000 ML IV SCH ×2 (10:29→23:31)
[2022-02-09] MEDS: INSULIN GLARGINE SOLOSTAR 100 UNITS/ML 3 ML PEN SC SCH ×2 (11:40→21:51)
--- NOTE | 2022-02-09 12:21 | Pharmacy Report ---
Pharmacy Glycemic Short Note 2 - Date of Service February 09, 2022 - Glycemic Short BSG Results (Last 24 hours): 02/08/22 02/08/22 02/08/22 16:20 16:22 17:16 Glucose POC Glucose 65 L* 62 L* 83 02/08/22 02/08/22 02/08/22 20:05 20:23 23:29 Glucose POC Glucose 64 L* 105 H 63 L* 02/08/22 02/09/22 02/09/22 23:49 03:29 05:25 Glucose 176 H POC Glucose 120 H 148 H 02/09/22 02/09/22 08:58 11:28 Glucose POC Glucose 272 H 213 H OUTPATIENT ANTIDIABETIC REGIMEN: * Lantus/Novolin R (unknown doses); clarifying * HbA1C- 10.3% (02/07/22) ASSESSMENT: 02/09 * Downgrade from ICU anticipated today per ICU rounds. Heparin drip and norepinephrine have been discontinued. Remains NPO. * Multiple BSG's on three different occasions yesterday <70 mg/dL. Etiology likely too much basal insulin (40 units in the afternoon on 02/07 contributing in addition to the 20 units yesterday AM). AM fasting BSG with significant rebound this AM to 272 mg/dL. Will decrease basal as compared to the 40 units that contributed and split dose BID. OK to increase up to approximate home dose (cumulative) today if BSG's remain > 180 mg/dL. * Will slightly loosen Novolog too, to weight-based moderate stress estimate 02/08 * Last evening, dextrose containing IVF were modified and dextrose removed. Insulin drip subsequently titrated itself to off by ~2200. Patient remained intubated/sedated. AG remained closed this AM, HCO3 >15. * Patient extubated this AM. Weaning norepinephrine, heparin drip continues and remains NPO. * Recieved 40 units of Lantus yesterday ~ 1100 in addition to insulin infusion which was running ~18unit/hr most of the day. BSG this AM 146, 177mg/dL with no basal since drip discontinued last night. Given numerous variable stressors, plan for basal dosing today approximately weight/stress 3. Pt reportedly on Lantus 25units daily @ home however non-compliant. 20 units of Lantus this AM, and will scale HS dose pending BSG. * Novolog q4h based upon weight/stress of 3 while NPO 02/07 * Patient is critically ill; currently intubated/sedated requiring vasopressor support and IV antibiotics in the setting of DKA/HHS associated w/ high anion gap metabolic acidosis, respiratory failure secondary to encephalopathy and septic shock. Initiated on an insulin drip last evening per [facility] protocol (goal BSG 250-350). Initial labs: BSG- 1439mg/dL, pH 7.16, AG-29, Bicarb-8. Pharmacy consulted to assist with glycemic management. * NPO, dextrose containing IVF include heparin, octreotide, and protonix drips. 1/2NS w/ 20mEQ KAcet running at 150mL/hr overnight into this AM. * Insulin infusion running at ~ 12unit/hr average since last night. This AM -- pH 7.46, Bicarb-19, AG-24. Plan for 40 units Lantus X 1 today to assist with drip weaning as patient stabilizes. D5 containing fluids to be added once BSG within goal range. PLAN FOR INPATIENT GLYCEMIC CONTROL: * Basal insulin * Lantus 0-12 units SC BID, depending on BSG * Bolus insulin * NovoLog per scale ACHS or Q4hrs while NPO * Goal Range: Low 120 mg/dL - High 150 mg/dL * Correction: 35 mg/dL/unit * Carb ratio: 11 g CHO/unit
[2022-02-09 15:03] LABS: Albumin Level 2.8 gm/dl (3.4-5.0); Bilirubin Direct 0.4 mg/dl (0-0.2); Total Protein 5.2 gm/dl (6.0-8.3)
[2022-02-09] MEDS: PANTOprazole 40 MG TAB PO SCH (15:37)
--- NOTE | 2022-02-09 21:01 | XRay Report ---
ORBIT RADIOGRAPHS 3 VIEWS HISTORY: pre-MRI screening. COMPARISON: Head CT February 06, 2022. FINDINGS: There are no radiopaque foreign bodies identified within the orbits. Multiple dental implan ts are incidentally noted. IMPRESSION: No radiopaque foreign bodies identified within the orbits. ACT 112: Negative or not required by law. Electronically signed by: Jeffery Carvalho M.D. 02/09/2022 8:59 PM
[2022-02-09] MEDS: ATORVASTATIN 40 MG TAB PO SCH (21:50)
[2022-02-10] MEDS: INSULIN ASPART PER UNIT SC SCH ×6 (01:14→21:03)
[2022-02-10 08:03] LABS: Partial Thromboplastin Ratio 1.1; Partial Thromboplastin Time 29.6 Seconds (21.0-31.0)
[2022-02-10] MEDS: SERTRALINE HCL 50 MG TABLET PO SCH (08:27)
[2022-02-10] MEDS: INSULIN GLARGINE SOLOSTAR 100 UNITS/ML 3 ML PEN SC SCH ×2 (08:27→18:27)
[2022-02-10] MEDS: QUEtiapine FUMARATE 25 MG TABLET PO SCH (08:27)
[2022-02-10 08:31] LABS: Albumin Level 2.7 gm/dl (3.4-5.0); BUN Creatinine Ratio 23.8 (10-20); Bilirubin,Total 1.1 mg/dl (0.2-1.0); Calcium 7.7 mg/dl (8.5-10.1); Creatinine Clr Calc Pharmacy 101.4 ml/min; Est GFR (African American) 109.5 ml/min; Est GFR (Non-African American) 94.5 ml/min; Globulin 2.6 gm/dl (2.5-4.0); Magnesium 2.1 mg/dl (1.7-2.4); Phosphorus 2.2 mg/dl (2.5-4.9); Potassium 3.6 mmol/L (3.5-5.1); Total Protein 5.3 gm/dl (6.0-8.3)
--- NOTE | 2022-02-10 08:37 | Magnetic Resonance Report ---
MR brain wo con HISTORY: 61 years-old Male persistent AMS, previous shock - ?injury. Acutely altered mental status w ith diabetic ketoacidosis. COMPARISON: Head CT 02/06/2022. TECHNIQUE: Multiplanar and multisequence MRI of the brain was obtained without the use of IV contrast . FINDINGS: [employer] localizer images demonstrate no gross extracranial abnormality. There is no restricted diffusio n to suggest acute or subacute infarct. Midline structures appear unremarkable. Degenerative changes are noted within the imaged cervical spine. This study is mildly motion degraded. There is no acute i ntracranial hemorrhage, midline shift, abnormal extra-axial collection, hydrocephalus or intracranial mass. No pathologic blooming artifact. Mild involutional changes. Minimal scattered T2/FLAIR hyperin tense foci throughout the white matter are a nonspecific finding however favor chronic microvascular ischemic disease. The mesial temporal lobes are symmetric and within normal limits. No evidence of me sial temporal sclerosis or acute seizure focus. The cerebral venous sinuses and major arterial flow voids appear patent. Trace mastoid effusions. Mil d mucosal thickening of the paranasal sinuses. Skull, orbits and soft tissues are unremarkable. IMPRESSION: No acute intracranial abnormality. No acute or subacute infarct. ACT 112: Negative or not required by law. The above report was generated using voice recognition software. It may contain grammatical, syntax o r spelling errors. Dictated: 02/10/2022 7:04 AM Transcribed: 02/10/2022 7:35 AM Sabina [id number] [email or web address] Electronically signed by: Freddie Trinidad M.D. 02/10/2022 8:36 AM
[2022-02-10] MEDS: PANTOprazole 40 MG TAB PO SCH (08:39)
--- NOTE | 2022-02-10 09:20 | Hospitalist Progress Note ---
Date of Service February 10, 2022 Assessment & Plan (1) DKA (diabetic ketoacidosis): Plan: He is a 61 yo M with history of poorly controlled T1DM who presented 02/06 with AMS, found to have significant hyperglycemia consistent with DKA/HHS. His clinical course was complicated by RF w/ hypoxia that required intubation and mechanical ventilation. He has since been extubated and his mentation has returned to baseline. 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 - Had an at-length discussion with pt that included (1) checking DexCom for BSG values 2hrs after meal and assess if his sliding scale estimation was accurate (2) bring his insulin pen with him as opposed to leave it at home to avoid administration delay after meals (3) complications of diabetes potentially leading to heart attack, stroke, kidney disease, and blindness (4) severity of this DKA episode - Diabetes Education to f/u now that patient is awake, alert and oriented Leukocytosis - WBC: 12.11 ( up from 7.88 yesterday), 90% neutrophils, suspicious of bacterial infection - no evidence of skin infection - lungs clear on auscultation - given pt afebrile blood culture not drawn - no urinary symptoms - suspected GI infection in setting of watery stools; c-diff test negative - trend CBC Diarrhea - pt reported 1 watery BM on 02/10 - Stool occult: Hemoccult negative - given new leukocytosis, GI infection is a possibility - C. diff stool (01/31): negative - follow Metabolic encephalopathy (resolved) - On ER arrival: unresponsive, unable to protect airway - Likely secondary to metabolic/electrolyte abnormalities & DKA - Toxicology (02/06): negative, for the exception of Marijuana - CT head (02/06) & MRI (02/09) : no acute findings - Ammonia levels originally elevated, resolved with Lactulose dose Single Episode of Atrial Fibrillation - On ER arrival: EKG showed Afib w/ Rvr; no Afib on Tele since - CHADSVASc score 2 - Likely secondary to physiological stress due to DKA/HHS - Echo (02/07): Grade I diastolic dysfunction - Consider Holter monitor as an outpatient if evidence of another Afib episode prior to discharge Heparin-Induced Thrombocytopenia - Plt were normal on admission; have been trending down since; Today (02/10): Plt 92 - Heparin initiated on 02/06 due to single Afib episode on arrival; discontinued on 02/09 - Although HIT generally starts 5-10 days after heparin initiation, we are unsure of pt us of heparin in the past - 4Ts Score: 6, Bernardino Score: 4 - ordered PF4 heparin ab test - Initiate Rivaroxaban prophylactically as we await for the PF4 test results, 15 mg BID for 21 days followed by 20 mg once daily - duration of anticoagulation will be a discussion between PCP and pt and how quickly the plt count recovers - trend CBC Normocytic Anemia: - Admission hemoglobin 8.8 with normocytic MCV (85.2); unknown baseline wit hx of anemia per - Today (02/10): hgb 9.2, hct 27.7, Fe 76, Ferritin: 370.8 - differential include anemia of chronic disease, GI bleed (subjective report of coffee-ground emesis) - FOBT negative today - trend CBC Transaminitis (resolving) - On ER arrival AST 147, ALT 68; peaked at AST 278, ALT 126; trending down - Today: AST 100, ALT 90 - suspect liver shock 2/2 hypoperfusion, no significant findings pointing to acalculous cholecystitis Elevated Troponin/Type II NSTEMI (resolving) - [place], [place] [address], downtrended subsequently - with the exception of he first EKG showing Afib with RVR and RBBB (resolved), no conduction/repolarization abnormalities noted - Likely secondary to demand ischemia in the setting of hypovolemia, acidosis - Was on heparin drip for 3 days, since discontinued TOD (resolved) - Admission BUN 72, Creatinine 3.29 - Likely pre-renal, secondary to DKA, hypovolemia - Today: BUN 20, Creatinine 0.84 - Discontinue Plasma-Lyte Reported Episode of Coffee-ground Emesis / Possible Hematemesis (resolved) - One reported episode of coffee-ground appearing emesis per patient's friend on admission, supported by mouth/throat PE in ER; no further episodes since - Hg 8.3-10.5 since arrival, unclear of pt baseline - Protonix ggt & IV Octreotide initiated on arrival, have since been discontinued - FOBT (02/10) negative - given no further episodes and stable Hgb, we suspect any bleeding has since resolved. Anion Gap Metabolic Acidosis (resolved) - On ER arrival: pH 7.00, anion gap 30 - resolved with treatment of DKA/HHS and fluid resuscitation - Likely secondary to DKA, lactic acidosis, uremia Ventilatory dependent respiratory failure with hypoxia (resolved) - Intubated and mechanically ventilated on admission; secondary to encephalopathy and inability to protect airway - Chest CT (03/09): Trace b/l pleural effusions w/ associated airspace opacities supporting atelectasis. - Extubated DOA#3; w/o stridors - Continues to sat well on room air Hyperammonemia (resolved) - On ER arrival: ammonia 134 - resolved with fluid resuscitation, insulin gtt, lactulose -Likely secondary to DKA/HHS and critically ill state Hypotension (resolved) - 60/30 per EMS report, 79/54 on ER arrival s/p 500cc by EMS - Suspect secondary to DKA/HHS - Random cortisol (DOA#3): 32.45 - Normotensive since DOA#4 resolved with fluid resuscitation & Levophed Chronic pain: - History of chronic back pain with scheduled and as needed use of oxycodone ER and IR - Hold for now. Possible Sepsis / Septic Shock (previously suspected - unlikely) - initially suspect infection due to elevated WBC count of 23.42 with left shift, procalcitonin 13.55 - COVID-19, RSV, influenza, MRSA swab negative; Culture: no growth 48hr - CT head, chest, abdomen, pelvis: no significant findings pointing to infection - s/p Vancomycin/Zosyn - WBC, procal have since normalized, suspect SIRS secondary to DKA rather than infection Code status: FULL CODE Diet: Carb consistent/DM2 DVT ppx: Xarelto Disposition: Med Surg w/ Tele Admission and Anticipated Discharge Date Admission Date: February 06, 2022 Supervising Physician Co-Signing Physician Notes Patient seen and examined with medical student Oksana Briggs and PGY-3 Dr. Brown. Agree with history, exam findings, assessment and plan as outlined. In brief, Mr. Motta is a 61 year old male with history of diabetes, hyperlipidemia, and chronic back pain admitted with DKA, new atrial fibrillation and respiratory failure. Feels well. Tends to be non-adherent with insulin at homeeats fast food frequently and does not carry his insulin with him when he eats out. VS and nursing notes reviewed. Well appearing. Slowed speech. Heart with regular rate and rhythm. Lungs are clear to auscultation. Labs reviewed. 1. DKA. Hx of insulin dependent diabetes at age 20. History of non- adherence with insulin at home. Basal bolus insulin. Appreciate glycemic consult. 2. Metabolic encephalopathy. Improving. MRI Brain with microvascular change. 3. Acute hypoxic respiratory failure. Extubated. 4. Elevated troponin, atrial fibrillation. Resolved and heparin gtt discontinued. Echo with preserved EF. 5. Elevated liver tests. Prior imaging showed hepatic steatosis. Downtrending. 6. Leukocytosis. New. Unclear etiology but ?new viral gastro. C. dfif negative. 7. Thrombocytopenia. New and has been downtrending. Possible HIT. Check PF4 assay. Stopped heparin and transitioned to Xa inhibitor for DVT prophylaxis. Peripheral smear ordered for this morning. 8. Anemia. Likely anemia of chronic disease. Hemoglobin has been stable. Dispo: pending resolution of encephalopathy and improvement of blood sugars. Subjective Pt was seen at bedside this morning. He was awake, alert, and appeared comfortable. He feels better and stronger than yesterday; believes he's at 80% of his baseline. His throat feels a little scratchy which makes him cough, but he has been able to drink water with no significant issues. He has a mild headache. Otherwise, he denies confusion, dizziness, chest pain, SOB, body aches. He has no questions or concerns. He understands he is in the hospital for uncontrolled hyperglycemia. The last thing pt remembers is his friend coming over to his house and feeding him a lot of candy. He thinks he was confused when his friend arrived, which let to his friend thinking he was having a hypoglycemic episode and prompted the candy feeding. He did not have DexCom at the time. He confirmed 's statement about not being compliant with his Novolog; he estimates how much he needs to take, sometimes delaying taking it because he leaves his insulin at home, and other times not taking it at all. He also admitted to poor diet which primarily consists of fast food. He seems to have a fair understanding of how to take his insulin based on his blood sugar values. He recalls one other incidence of DKA for which he was admitted for a week in [place]. Per pt, That DKA was milder than the one he is currently being hospitalized for, wild less significant lab values. This was due to him not being good about his diet and not using the sliding scale appropriately. Regarding 's statement about his seizures. He stated having at least 100 seizures in the past. He vaguely remembers being worked up my neurologists which includes EEG and brain MRI. He denies diagnosis of epilepsy, and believes the seizures were due to his diet. As for his NSAID intake. He confirmed taking aspirin, 2 tablets of Sudafed (morning congestion) and 2 tablets of Advil (back pain) daily for at least the past 2 year. He also confirmed 200 mg of Seroquel for sleep. He confirmed a hx of hypertension and hyperlipidemia. He doesn't recall being anemic or previous episodes of hematemesis or melena. Review of Systems Review of Systems: See HPI. Physical Exam Respiratory: normal respiratory effort, lungs clear to auscultation Cardiovascular: RRR, no murmur, no edema Gastrointestinal (Abdomen): normal bowel sounds, soft, nontender, no hepatosplenomegaly Psychiatric: A+Ox3, euthymic affect Eye Contact: good eye contact Thought Process: clear/coherent thought process Speech delay Results & Data Results & [facility] ([facility]) Vital Signs (Past 12 Hours) Vital Signs Temp Pulse Pulse Resp BP Pulse Ox 02/10/22 07:25 37.0 C 95 H 20 123/71 95 02/10/22 03:12 37.2 C 98 H 18 125/75 95 02/09/22 23:24 103 H 02/09/22 22:24 36.7 C 101 H 18 124/72 95
[2022-02-10 09:22] LABS: Hematocrit (blood only) 27.7 % (42-52); Hemoglobin 9.2 g/dL (14.0-18.0); Mean Corpuscular Hemoglobin 31.2 pg (25-34); Mean Corpuscular Hgb Conc 33.2 g/dL (32-36); Mean Corpuscular Volume 93.9 fL (80-100); RDW Standard Deviation 44.9 fL (36.4-46.3); Red Blood Count 2.95 M/uL (4.7-6.1); White Blood Count 12.11 K/uL (4.8-10.8)
[2022-02-10 09:57] LABS: Basophils # (auto) 0.01 K/uL (0-0.2); Basophils % (auto) 0.1 %; Eosinophils # (auto) 0.03 K/uL (0-0.5); Eosinophils % (auto) 0.2 %; Immature Granulocytes # (auto) 0.03 K/uL (0.00-0.02); Immature Granulocytes % (auto) 0.2 %; Lymphocytes # (auto) 0.55 K/uL (1.2-3.4); Lymphocytes % (auto) 4.5 %; Mean Platelet Volume 11.2 fL (7.4-10.4); Monocytes # (auto) 0.52 K/uL (0.11-0.59); Monocytes % (auto) 4.3 %; Neutrophils # (auto) 10.97 K/uL (1.4-6.5); Neutrophils % (auto) 90.7 %; Platelet Count 92 K/uL (130-400); Platelet Estimate Decreased (Normal)
[2022-02-10] MEDS ORDERED: SODIUM PHOSPHATE 3 MMOL/1 ML INFUSION IV STA (10:35)
[2022-02-10] MEDS ORDERED: SODIUM PHOSPHATE 15 MMOL in SODIUM CHLORIDE 0.9% 250 ML IV ONE (11:00)
--- NOTE | 2022-02-10 12:32 | Pharmacy Report ---
Pharmacy Glycemic Short Note 2 - Date of Service February 10, 2022 - Glycemic Short BSG Results (Last 24 hours): 02/09/22 02/09/22 02/10/22 16:56 20:32 01:05 Glucose POC Glucose 195 H 235 H 235 H 02/10/22 02/10/22 02/10/22 03:45 07:41 07:44 Glucose 151 H POC Glucose 177 H 160 H 02/10/22 12:02 Glucose POC Glucose 232 H OUTPATIENT ANTIDIABETIC REGIMEN: * Lantus/Novolin R (unknown doses); clarifying * HbA1C- 10.3% (02/07/22) ASSESSMENT: 02/10: * Austen received a total of 42 units of SQ insulin yesterday * 24 units Lantus + 18 units Novolog * BSGs 2732, 213, 195, 235, 235 mg/dL * Fasting BSG greatly improved today, 160 mg/dL. I suspect basal needs to be similar to home dose of Lantus 25 units. Will slightly increase Lantus scale to allow for 24-30 units today. Can likely start transition back to once daily dosing tomorrow. * Post prandial BSGs were all elevated yesterday. Diet advanced. Will tighten CF and CR. 02/09 * Downgrade from ICU anticipated today per ICU rounds. Heparin drip and norepinephrine have been discontinued. Remains NPO. * Multiple BSG's on three different occasions yesterday <70 mg/dL. Etiology likely too much basal insulin (40 units in the afternoon on 02/07 contributing in addition to the 20 units yesterday AM). AM fasting BSG with significant rebound this AM to 272 mg/dL. Will decrease basal as compared to the 40 units that contributed and split dose BID. OK to increase up to approximate home dose (cumulative) today if BSG's remain > 180 mg/dL. * Will slightly loosen Novolog too, to weight-based moderate stress estimate 02/08 * Last evening, dextrose containing IVF were modified and dextrose removed. Insulin drip subsequently titrated itself to off by ~2200. Patient remained intubated/sedated. AG remained closed this AM, HCO3 >15. * Patient extubated this AM. Weaning norepinephrine, heparin drip continues and remains NPO. * Recieved 40 units of Lantus yesterday ~ 1100 in addition to insulin infusion which was running ~18unit/hr most of the day. BSG this AM 146, 177mg/dL with no basal since drip discontinued last night. Given numerous variable stressors, plan for basal dosing today approximately weight/stress 3. Pt reportedly on Lantus 25units daily @ home however non-compliant. 20 units of Lantus this AM, and will scale HS dose pending BSG. * Novolog q4h based upon weight/stress of 3 while NPO 02/07 * Patient is critically ill; currently intubated/sedated requiring vasopressor support and IV antibiotics in the setting of DKA/HHS associated w/ high anion gap metabolic acidosis, respiratory failure secondary to encephalopathy and septic shock. Initiated on an insulin drip last evening per [facility] protocol (goal BSG 250-350). Initial labs: BSG- 1439mg/dL, pH 7.16, AG-29, Bicarb-8. Pharmacy consulted to assist with glycemic management. * NPO, dextrose containing IVF include heparin, octreotide, and protonix drips. 1/2NS w/ 20mEQ KAcet running at 150mL/hr overnight into this AM. * Insulin infusion running at ~ 12unit/hr average since last night. This AM -- pH 7.46, Bicarb-19, AG-24. Plan for 40 units Lantus X 1 today to assist with drip weaning as patient stabilizes. D5 containing fluids to be added once BSG within goal range. PLAN FOR INPATIENT GLYCEMIC CONTROL: * Basal insulin * Lantus 0-12-15 units SC BID, depending on BSG * Bolus insulin * NovoLog per scale ACHS or Q4hrs while NPO * Goal Range: Low 120 mg/dL - High 150 mg/dL * Correction: 25 mg/dL/unit * Carb ratio: 7 g CHO/unit
[2022-02-10] MEDS: RIVAROXABAN 15 MG TAB PO SCH ×2 (13:11→18:28)
[2022-02-10] MEDS ORDERED: MELATONIN 3 MG TAB PO PRN (17:46)
--- NOTE | 2022-02-10 18:19 | Electrocardiogram Report ---
Test Reason : Blood Pressure : / mmHG Vent. Rate : 103 BPM Atrial Rate : 103 BPM P-R Int : 190 ms QRS Dur : 086 ms QT Int : 370 ms P-R-T Axes : 016 005 060 degrees QTc Int : 484 ms Poor data quality, interpretation may be adversely affected Sinus tachycardia Abnormal ECG When compared with ECG of 06-FEB-2022 20:54, (unconfirmed) T wave inversion now evident in Anterior leads Confirmed by Juliocesar Leblanc ([id number]) on 02/10/2022 6:18:43 PM Referred By: REFERRED SELF Confirmed By:Rivera Leblanc
--- NOTE | 2022-02-10 18:19 | Electrocardiogram Report ---
Test Reason : Blood Pressure : / mmHG Vent. Rate : 104 BPM Atrial Rate : 104 BPM P-R Int : 200 ms QRS Dur : 086 ms QT Int : 358 ms P-R-T Axes : 081 006 -08 degrees QTc Int : 470 ms Poor data quality, interpretation may be adversely affected Sinus tachycardia Incomplete right bundle branch block Abnormal ECG When compared with ECG of 06-FEB-2022 20:11, (unconfirmed) Right bundle branch block is no longer Present Confirmed by Juliocesar Leblanc ([id number]) on 02/10/2022 6:19:02 PM Referred By: REFERRED SELF Confirmed By:Rivera Leblanc
[2022-02-10] MEDS: ATORVASTATIN 40 MG TAB PO SCH (21:04)
[2022-02-11 06:21] LABS: Hematocrit (blood only) 25.8 % (42-52); Hemoglobin 8.7 g/dL (14.0-18.0); Mean Corpuscular Hemoglobin 31.9 pg (25-34); Mean Corpuscular Hgb Conc 33.7 g/dL (32-36); Mean Corpuscular Volume 94.5 fL (80-100); RDW Coefficient of Variation 12.6 % (11.5-14.5); RDW Standard Deviation 43.4 fL (36.4-46.3); Red Blood Count 2.73 M/uL (4.7-6.1); White Blood Count 10.51 K/uL (4.8-10.8)
[2022-02-11 06:39] LABS: Mean Platelet Volume 11.1 fL (7.4-10.4); Platelet Count 92 K/uL (130-400)
[2022-02-11 06:44] LABS: Basophils # (auto) 0.01 K/uL (0-0.2); Basophils % (auto) 0.1 %; Eosinophils # (auto) 0.26 K/uL (0-0.5); Eosinophils % (auto) 2.5 %; Immature Granulocytes # (auto) 0.03 K/uL (0.00-0.02); Immature Granulocytes % (auto) 0.3 %; Lymphocytes # (auto) 1.37 K/uL (1.2-3.4); Monocytes # (auto) 0.79 K/uL (0.11-0.59); Monocytes % (auto) 7.5 %; Neutrophils # (auto) 8.05 K/uL (1.4-6.5); Neutrophils % (auto) 76.6 %
[2022-02-11 07:13] LABS: Albumin Globulin Ratio 1.2 (0.9-2); Albumin Level 2.7 gm/dl (3.4-5.0); BUN Creatinine Ratio 16.5 (10-20); Bilirubin,Total 0.6 mg/dl (0.2-1.0); Creatinine Clr Calc Pharmacy 107.8 ml/min; Est GFR (African American) 112.3 ml/min; Est GFR (Non-African American) 96.9 ml/min; Globulin 2.3 gm/dl (2.5-4.0); Phosphorus 2.9 mg/dl (2.5-4.9); Potassium 3.9 mmol/L (3.5-5.1)
--- NOTE | 2022-02-11 08:18 | Discharge Summary ---
Date of Service February 11, 2022 Admission HPI Per Admitting Provider 61-year-old male with past medical history significant for DM2 with no other known history presented to the ER due to somnolence and malaise. History is given by patient's friend and personal as well as patient's over the phone. According to patient's friend, patient was in his usual state of health yesterday. Overnight, he started to feel woozy and dizzy and in the morning reported that he had had a fall and a black tarry emesis. BSG was not checked at home prior to EMS arrival. On arrival to the ER patient was noted to be hypotensive 60s/30s, tachycardic, tachypneic, hypothermic to 33 C and hypoxic initially requiring nasal cannula, and ultimately intubated. Initial POC lab work revealed pH 6.99, PCO2 13, PO2 137, HCO3 3.2, sodium 120, K 7.2, BSG >700, hemoglobin 10.2. Patient received 1 L NSS, calcium gluconate 1g IV, albuterol 10 mg nebulizer x1, 10 units regular insulin, and 3 amps of bicarb and ultimately bicarb drip. Type and screen ordered. ICU on-call provider made aware of patient. On my interview patient is intubated and therefore unable to provide any history. Repeat lab work with improvement in pH to ~7.1, K 4.9. Serum Hgb 8.8. Repeat vitals with BP 106/55. Patient's was able to describe that patient is "notoriously not good about using his insulin or controlling his sugars". His home regimen is Lantus 25 units daily with insulin sliding scale, which he often does not follow. He is also on atorvastatin for hyperlipidemia and extended release oxycodone for chronic pain. Admission Exam Per Admitting Provider Constitutional: + ill appearing and + thin Eyes: PERRL, conjunctivae normal, anicteric sclerae ENMT: Noted to have [id number] material on teeth and in oropharynx Neck: Patient in c-collar Respiratory: intubated, tachypneic, rhonchi diffuse throughout Cardiovascular: regular rhythm, tachycardic, no murmurs Gastrointestinal (Abdomen): normal bowel sounds, soft, nontender, no hepatosplenomegaly Musculoskeletal: no cyanosis or clubbing Skin: no rashes, warm and dry Neurologic: moves all extremities Patient is intubated so unable to assess orientation Principal Diagnosis DKA/HSS Discharge Exam Constitutional WD/WN, vitals as above cooperative and comfortable; no acute distress Eyes + anicteric sclerae ENMT external ear and nose normal, oropharynx normal Neck normal visual inspection and trachea midline Respiratory no respiratory distress and no cough Cardiovascular RRR, no murmur, no edema Heart Sounds: normal S1 and normal S2 Gastrointestinal (Abdomen) normal bowel sounds, soft, nontender, no hepatosplenomegaly Musculoskeletal Head/Neck/Chest: normocephalic and head atraumatic Skin no rashes, warm and dry Neurologic moves all extremities Psychiatric A+Ox3, euthymic affect Discharge Data Allergies Allergy/AdvReac Type Severity Reaction Status Date / Time No Known Allergies Allergy Verified 02/06/22 21:32 Consultations 02/06/22 22:05 ED Decision to Admit Stat 02/06/22 22:15 Consult Gastroenterology Routine 02/06/22 23:54 Consult Aquatics Lifeguard Routine Ordered Studies 02/06/22 20:27 CT cervical spine wo con Urgent CT head/brain wo con Urgent 02/06/22 21:56 CT Abd and Pelvis [CT abd pelvis wo con] Urgent CT chest diagnostic wo con Urgent 02/07/22 00:54 US point of care ultrasound Urgent 02/09/22 14:06 MR brain wo con Routine Diabetes Follow up Diabetes Follow-up Needed for HgbA1c >9% Hospital Course (1) Type 2 diabetes mellitus: He is a 61 yo M with history of poorly controlled T1DM who presented 02/06 with AMS, found to have significant hyperglycemia consistent with DKA/HHS. His clinical course was complicated by RF w/ hypoxia that required intubation and mechanical ventilation. He has since been extubated and his mentation has returned to baseline. 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 - Had an at-length discussion with pt that included (1) checking DexCom for BSG values 2hrs after meal and assess if his sliding scale estimation was accurate (2) bring his insulin pen with him as opposed to leave it at home to avoid administration delay after meals (3) complications of diabetes potentially leading to heart attack, stroke, kidney disease, and blindness (4) severity of this DKA episode - patient said he left all his insulin at home in [place] - I sent in a script for the above for him to use while he remains in [place] with his Leukocytosis - WBC: 12.11 --> normalized to 10 by day of discharge - concurrent cough; CXR concerning for possible R middle lobe PNA vs. atelectasis. Will send out on Azithromycin 500mg daily for 3 days. - no evidence of skin infection - given pt afebrile blood culture not drawn - no urinary symptoms - suspected GI infection in setting of watery stools; c-diff test negative - trend CBC Diarrhea -pt reported 1 watery BM on 02/10 - Stool occult: Hemoccult negative - given new leukocytosis, GI infection is a possibility - C. diff stool (01/31): negative - reoslved by discharge Metabolic encephalopathy (resolved) - On ER arrival: unresponsive, unable to protect airway - Likely secondary to metabolic/electrolyte abnormalities & DKA - Toxicology (02/06): negative, for the exception of Marijuana - CT head (02/06) & MRI (02/09) : no acute findings - Ammonia levels originally elevated, resolved with Lactulose dose Single Episode of Atrial Fibrillation - On ER arrival: EKG showed Afib w/ Rvr; no Afib on Tele since - CHADSVASc score 2 - Likely secondary to physiological stress due to DKA/HHS - Echo (02/07): Grade I diastolic dysfunction - Consider Holter monitor as an outpatient if evidence of another Afib episode prior to discharge Heparin-Induced Thrombocytopenia - Plt were normal on admission; have been trending down since; Today (02/10): Plt 92 - Heparin initiated on 02/06 due to single Afib episode on arrival; discontinued on 02/09 - Although HIT generally starts 5-10 days after heparin initiation, we are unsure of pt us of heparin in the past - 4Ts Score: 6, Bernardino Score: 4 - ordered PF4 heparin ab test -- pending at the time of discharge - Initiate Rivaroxaban prophylactically as we await for the PF4 test results, 15 mg BID for 21 days followed by 20 mg once daily - duration of anticoagulation will be a discussion between PCP and pt and how quickly the plt count recovers - recommend against future heparin use - Repeat CBC ordered for 5 days. Normocytic Anemia: - Admission hemoglobin 8.8 with normocytic MCV (85.2); unknown baseline wit hx of anemia per - Today (02/10): hgb 9.2, hct 27.7, Fe 76, Ferritin: 370.8 - differential include anemia of chronic disease, GI bleed (subjective report of coffee-ground emesis) - FOBT negative - Repeat CBC in 5 days. Transaminitis (resolving) - On ER arrival AST 147, ALT 68; peaked at AST 278, ALT 126; trending down - Today: AST 100, ALT 90 - suspect liver shock 2/2 hypoperfusion, no significant findings pointing to acalculous cholecystitis - Repeat CMP in 5 days Elevated Troponin/Type II NSTEMI (resolving) - [place], [place] [address], downtrended subsequently - with the exception of he first EKG showing Afib with RVR and RBBB (resolved), no conduction/repolarization abnormalities noted - Likely secondary to demand ischemia in the setting of hypovolemia, acidosis - Was on heparin drip for 3 days, since discontinued TOD (resolved) - Admission BUN 72, Creatinine 3.29 - Likely pre-renal, secondary to DKA, hypovolemia - returned to baseline by the time of hospital discharge Reported Episode of Coffee-ground Emesis / Possible Hematemesis (resolved) - One reported episode of coffee-ground appearing emesis per patient's friend on admission, supported by mouth/throat PE in ER; no further episodes since - Hg 8.3-10.5 since arrival, unclear of pt baseline - Protonix ggt & IV Octreotide initiated on arrival, have since been discontinued - FOBT (02/10) negative - given no further episodes and stable Hgb, we suspect any bleeding has since resolved. Anion Gap Metabolic Acidosis (resolved) - On ER arrival: pH 7.00, anion gap 30 - resolved with treatment of DKA/HHS and fluid resuscitation - Likely secondary to DKA, lactic acidosis, uremia Ventilatory dependent respiratory failure with hypoxia (resolved) - Intubated and mechanically ventilated on admission; secondary to encephalopathy and inability to protect airway - Chest CT (03/09): Trace b/l pleural effusions w/ associated airspace opacities supporting atelectasis. - Extubated DOA#3; w/o stridors - Continues to sat well on room air Hyperammonemia (resolved) -On ER arrival: ammonia 134 - resolved with fluid resuscitation, insulin gtt, lactulose -Likely secondary to DKA/HHS and critically ill state Hypotension (resolved) - 60/30 per EMS report, 79/54 on ER arrival s/p 500cc by EMS - Suspect secondary to DKA/HHS - Random cortisol (DOA#3): 32.45 - Normotensive since DOA#4 resolved with fluid resuscitation & Levophed Chronic pain: - History of chronic back pain with scheduled and as needed use of oxycodone ER and IR - Hold for now. Possible Sepsis / Septic Shock (previously suspected - unlikely) - initially suspect infection due to elevated WBC count of 23.42 with left shift, procalcitonin 13.55 - COVID-19, RSV, influenza, MRSA swab negative; Culture: no growth 48hr - CT head, chest, abdomen, pelvis: no significant findings pointing to infection - s/p Vancomycin/Zosyn - WBC, procal have since normalized, suspect SIRS secondary to DKA rather than infection Total Time Total Time Spent Total Time Spent (In Minutes): see attending attetation Discharge Plan Discharge Items Patient Disposition: Home - Self-Care Reason For Visit: SEPSIS, HYPOTENSION, HHS, GIB Discharge Diagnosis: Sepsis, diabetic ketoacidosis Activity: Resume your previous activity Non-emergency contact: Primary Care Provider Call non-emergency contact if: you have any medication questions Follow-up/Referrals: PCP,NO [Physician] - Diet: Carb Consistent or DM2 Ambulatory Orders: Complete Blood Count with Diff (Routine) Timeframe: 5 Days Location: Determined by Patient Ordered By: Ameena Brown Comprehensive Metabolic Panel (Routine) Timeframe: 5 Days Location: Determined by Patient Ordered By: Ameena Reynolds Attending Provider Instructions: You were hospitalized at [facility] after being found down and unresponsive. The reason for your altered mentation was because your blood sugar was severely elevated. You were admitted to the Intensive Care Unit because of the severity of your condition. The cause of your severe hyperglycemia (elevated blood sugar) was likely from skipping your insulin doses. When you were given insulin in the hospital, your blood sugar improved nicely. We recommend the following insulin regimen at discharge: Lantus (ie glargine) insulin - 25 units qam. This is your long acting insulin. Novolog insulin 8 units with each meal. This is your short acting insulin. Please check your blood sugar 2 hours after eating - if your blood sugar is > 150, that should tell you the 8 units you used was insufficient for the amount of carbohydrates you consumed at that meal. The next time you ate the same meal, you will know to use >8 units of insulin. The few carbohydrates you eat, the less Novolog insulin you will need to take. It is critical that you do not miss any doses of insulin moving forward. Your platelet levels went below normal while under our care. It is possible that this was due to you being administered a medication known as heparin. You were placed on heparin because you went into a heart arrhythmia that dramatically increases your stroke risk. By thinning your blood, heparin mitigated that risk. However, sometimes heparin can bind to platelets and end up forming small blood clots. For this reason, we want you to be on the blood thinner Xarelto 15mg tw ice daily for an additional 20 days. After 20 days, we want you taking 20mg of Xarelto once daily thereafter. You will work with your primary care physician to determine when it is safe to stop taking the blood thinner. If you were to fall and hit your head while taking Xarelto, you must go to the nearest emergency department and get a cat scan of your brain to assess for a bleed. Finally, we repeated a chest x-ray on your day of discharge due to a cough. The appearance was consistent with that of a possible pneumonia. We recommend you take Azithromycin 500mg daily for 3 days. Please begin this evening, 02/11/22. Since you are going to be in the [facility] area for the next several weeks, an appointment was arranged for you to meet with Dr. Ameena Brown MD at 7:50am on 02/17/22 at [facility] for a follow up visit. Ranjeet0 Conchita Maria, Елен[address] 207. An order was placed for you to have repeat blood work drawn in 5 days - you can either get this done at [facility] OR at the [facility] [address] Office. This way, the results will be obtained prior to your visit on 02/17/22. Pending Studies at Discharge: Yes (Platelet factor 4 - Heparin antibody ) Stand-Alone Forms: My [facility], Smoking Cessation Medications and DC Order Prescriptions: New Xarelto 15 mg Tablet 15 mg PO BIDM 20 Days Qty: 40 RF: 0 atorvastatin 40 mg Tablet 40 mg PO HS 30 Days Qty: 30 RF: 0 lisinopril 20 mg tablet 20 mg PO DAILY 30 Days Qty: 30 RF: 0 Lantus Solostar U-100 Insulin 100 unit/mL (3 mL) insulin pen 25 unit subcut QAM Qty: 3 RF: 3 quetiapine 25 mg Tablet 50 mg PO DAILY 30 Days Qty: 60 RF: 0 sertraline 50 mg Tablet 50 mg PO DAILY 30 Days Qty: 30 RF: 0 insulin aspart U-100 [Novolog Flexpen U-100 Insulin] 100 unit/mL (3 mL) insulin pen 1 sliding scale dose subcut USEASDIRECTD Qty: 3 RF: 0 (DME) pen needle,diabetic, disp unit 32 gauge x 1/4" needle See Rx Instructions .Route Qty: 100 RF: 0 Continued multivitamin Tablet 1 tab PO DAILY RF: 0 vitamin B complex Tablet 1 tab PO DAILY RF: 0 coenzyme Q10 [CoQ-10] 100 mg Capsule 0 mg PO DAILY RF: 0 Medical Marijuana 1 dose DIRECTED PRN (Reason: NEEDED) RF: 0 quetiapine 200 mg Tablet 200 mg PO HS RF: 0 sildenafil 100 mg tablet 100 mg PO DAILY PRN (Reason: Sexual Activity) RF: 0 oxycodone 15 mg Tablet 15 mg PO Q6H PRN (Reason: Breakthrough Pain) RF: 0 aspirin 81 mg Tablet 81 mg PO DAILY RF: 0 OxyContin 20 mg Tablet Extended Release 12 Hr 20 mg PO BID RF: 0 testosterone cypionate 100 mg/mL Oil 100 mg IM WK RF: 0 sertraline 100 mg Tablet 100 mg PO DAILY 30 Days Qty: 0 RF: 0 Discontinued Lantus U-100 Insulin 100 unit/mL Solution 0 unit SUBCUT DIRECTED RF: 0 Novolin R Regular U-100 Insuln 100 unit/mL Solution 0 unit SUBCUT DIRECTED RF: 0 pseudoephedrine HCl [Sudafed 12 Hour] 120 mg Tablet Extended Release 120 mg PO Q12H PRN (Reason: Congestion) RF: 0 atorvastatin 40 mg Tablet 40 mg PO HS RF: 0 lisinopril 20 mg Tablet 20 mg PO DAILY RF: 0 ibuprofen 200 mg Tablet 400 - 600 mg PO Q6H PRN (Reason: Pain) RF: 0 Discharge Orders: Discharge Order (Routine); Ordered 02/11/22 Ordered By: Ameena Brown Admission Data Admit Date/Time: 02/06/22 21:29 Attending Provider: Wicho Roman Admit Provider: Argelia Nichols Primary Care Provider: Jair Salmeron Other Providers: Arcelia Juares ; Ehsan Silva ; Emerson Carvajal ; Nirav Mancia [facility] Supervising Physician Co-Signing Physician Notes Patient seen and examined PGY-3 Dr. Brown. Agree with history, exam findings, assessment and plan as outlined. In brief, Mr. Motta is a 61 year old male with history of diabetes, hyperlipidemia, and chronic back pain admitted with DKA, new atrial fibrillation and respiratory failure. Feels well. Did have a glucose level of 30s this morning with morning labs (venous). He was asymptomatic, but had eaten a small snack by the time a cap glucose was done that was in the 80s. Does have a cough that is a bit more wet sounding compared to yesterday. Feels that the cough is from irritation of the throat after being intubated. Denies shortness of breath or chest pain. No fevers. VS and nursing notes reviewed. Well appearing. Heart with regular rate and rhythm. Lungs with coarse breath sounds through, but most noticeable in the left lung. Labs reviewed. 1. DKA. Hx of insulin dependent diabetes at age 20. History of non- adherence with insulin at home. Basal bolus insulin. Appreciate glycemic consult. Will discharge with 25u lantus + at least 8u novolog with meals. Discussed checking glucose level 2 hours after meals. Encouraged Dexcom usage. May be a good candidate for an insulin pump in the future, but will defer to home PCP/vaccine specialist. 2. Metabolic encephalopathy. Improving. MRI Brain with microvascular change. 3. Cough. New coarse breath sounds throughout. Chest x-ray ?opacity right hilar area. Discharge with 3 days of azithromycin to cover for atypicals/CAP. 4. Acute hypoxic respiratory failure. Resolved. 5. Elevated troponin, atrial fibrillation. Resolved and heparin gtt discontinued. Echo with preserved EF. 6. Elevated liver tests. Prior imaging showed hepatic steatosis. Continues to trend down. 7. Leukocytosis. Resolved. 8. Thrombocytopenia. New. Stabilized at 90s. Possible HIT. Check PF4 assay. Stopped heparin and transitioned to Xa inhibitor for DVT prophylaxis. Peripheral smear ordered for this morning. 9. Anemia. Likely anemia of chronic disease. Hemoglobin has been stable. Dispo: Anticipate discharge home later this afternoon. Follow up appointment scheduled for February [address] Brown at the [facility] office. Resident Activity Tracking Resident Involvement: Resident Care Provided Care Provided: Adult Hospital Medicine
[2022-02-11] MEDS: RIVAROXABAN 15 MG TAB PO SCH (08:37)
[2022-02-11] MEDS: PANTOprazole 40 MG TAB PO SCH (08:37)
[2022-02-11] MEDS: QUEtiapine FUMARATE 25 MG TABLET PO SCH (08:37)
[2022-02-11] MEDS: SERTRALINE HCL 50 MG TABLET PO SCH (08:37)
[2022-02-11] MEDS: INSULIN ASPART PER UNIT SC SCH ×2 (08:40→12:54)
--- NOTE | 2022-02-11 11:50 | XRay Report ---
XR chest 1V portable CLINICAL HISTORY: cough, coarse breath sounds COMPARISON STUDY: Chest CT February 06, 2022. Chest radiograph February 08, 2022. FINDINGS: Lung volumes are normal. There may be mild right perihilar opacity. There is no pneumothora x or pleural effusion. Cardiac size is normal. Mediastinal contours are normal. There is no evidence for pulmonary edema. IMPRESSION: Possible mild right perihilar opacity. This could reflect atelectasis or pneumonia. Radi ographic follow-up is recommended. ACT 112: Negative or not required by law. Electronically signed by: Jeffery Carvalho M.D. 02/11/2022 11:48 AM
[2022-02-11] MEDS ORDERED: INSULIN GLARGINE SOLOSTAR 100 UNITS/ML 3 ML PEN SC SCH (12:00)
[2022-02-11] MEDS ORDERED: DEXTROSE 50% 50 ML SYRINGE IV ONE (15:24)
--- NOTE | 2022-02-15 08:03 | Coding Query ---
CODING QUERY To promote full compliance with coding requirements relating to patient care, provider participation is requested in all cases of field services director uncertainty. Please assist us with the question(s) below: Coding Question(s): Patient admitted with DM ketoacidosis. Progress notes and Discharge Summary document DM type I and DM type II. Seeking to clarify the type of Diabetes patient has. Please check below. Thank you. Kamran Brink [facility] Physician Response: ____x____ Diabetes Mellitus Type I Diabetes Mellitus Type II Other: Please document: Principal Diagnosis: "that condition established after study, to be chiefly responsible for occasioning the admission of the patient to the hospital for care." Co-Existing Principal Diagnosis: "when two or more diagnoses equally meet the criteria for principal diagnosis as determined by the circumstances of admission, diagnostic work up, and/or therapy provided, and the Alphabetic Index, Tabular List, or another coding guideline does not provide sequencing direction, any one of the diagnoses may be sequenced first." "When the physician has documented what appears to be a current diagnosis in the body of the record, but has not included the diagnosis in the final diagnostic statement, the physician should be asked whether the diagnosis should be added." (Source Coding Clinic 2 QTR90. p3-4) SHARONA
[2022-03-04] MEDS ORDERED: RIVAROXABAN 20 MG TAB PO SCH (18:00)
== END 2022-02-11 15:25 | disposition home or self-care (01) | DRG 637 ==
LOC: ED 20:04 → 1E 21:29 → SUATTDRO 21:29 → 1E 02-07 00:22 → 2N 02-09 15:21

== ENCOUNTER 2022-09-28 15:03 | Inpatient (IN) ==
[2022-09-28] MEDS ORDERED: SODIUM BICARBONATE 8.4% 150 MEQ in DEXTROSE 5% 1,000 ML IV STA (15:26)
[2022-09-28] MEDS ORDERED: ALBUTEROL 0.5% NEB SOLN 2.5 MG/0.5 ML VIAL NEB STA (15:26)
[2022-09-28] MEDS ORDERED: CALCIUM GLUCONATE 10% 1,000 MG in DEXTROSE 5% 50 ML IV STA (15:26)
[2022-09-28] MEDS ORDERED: STAT IV STA (15:26)
--- NOTE | 2022-09-28 15:28 | Emergency Department Note ---
Impression & Plan DKA (diabetic ketoacidosis) Admission ED Provider Note HPI: The patient is a 61-year-old male with history of insulin-dependent diabetes, history of DKA and insulin noncompliance, presents emergency department with a chief complaint of altered mental status. Per EMS report, patient's was out of town the past 2 days and found him in an altered state when she returned. EMS was contacted, patient was noted to be altered in the field with blood sugar elevated greater than 600, he also had an episode of dark emesis prior to arrival. On arrival here to the ED the patient is noted to be tachycardic, he is alert to verbal stimuli, he is able to tell me he is in the hospital. He was noted to be hypoxic in triage at 85% and therefore was placed on nonrebreather mask with improvement. He does have some dried of dark emesis around his mouth. ROS: - Per HPI *Outpatient medications and allergy history reviewed. *Pertinent external medical records reviewed. PE: General: Alert, disheveled appearing HEENT: Normocephalic, trachea midline, dried emesis surrounding the perioral area and chin Eyes: Extraocular eye movement is intact, no scleral erythema Pulmonary: Clear to auscultation bilaterally, no wheezing, tachypnea noted Cardio: Tachycardic rate with regular rhythm GI: Abdomen is soft, nontender : No suprapubic tenderness MSK: No evidence of trauma or malformation of the extremities, no edema Skin: No evidence of rash Neuro: Alert, no focal deficits, responds to commands appropriately Psychiatric: Cooperative engine monitor: - An order was placed for continuous cardiac monitoring - Patient was noted to be in sinus tachycardia with a rate of 131 EKG: (As interpreted by myself): Rate: 100 Rhythm: Sinus tachycardia (discrepancy noted with EKG, peaked T waves apparent in lead V2, EKG does not appear consistent with a true supraventricular tachycardia per my interpretation and I suspect the T waves are being counted as an extra QRS complex) Intervals: Within normal limits ST changes: No ST elevation Time: 1518 Interventions provided in ED: -IV fluid bolus x3, insulin drip, calcium gluconate, sodium bicarbonate, albuterol breathing treatment, Protonix Medical Decision Making: Patient presented to the emergency department with altered mental status, on arrival here to the ED he is slow to respond to my questions but he is able to tell me he is in the hospital, he is able to follow commands, he is hypoxic on arrival however oxygen saturations did improve with nonrebreather mask. He has some dried emesis around his mouth. Patient has a history of insulin noncompliance and DKA. Lab work returns with evidence of DKA, patient has blood sugar of 999, anion gap of 41, sodium bicarbonate level of 5, patient was aggressively IV fluid resuscitated with 4 L total of normal saline, lactic acid is elevated at 6.0 and potassium is 6.1. Patient was given hyperkalemia medications including insulin drip, calcium gluconate, sodium bicarbonate, albuterol breathing treatment. Evidence of acute kidney injury with creatinine of 1.99. Hemoglobin is 9.7, white blood cell count elevated at 27, blood cultures ordered. Chest x-ray does not show any evidence of pneumonia. I suspect the patient may have some element of aspiration given his hypoxia and dried vomit around his mouth. He will be treated with IV Unasyn. CT imaging of the head does not show any evidence of any acute intracranial bleeding. Troponin is elevated greater than 300, EKG does not show any acute ischemic changes/ST elevation, I suspect this is demand ischemia related to his ongoing metabolic acidosis. I have low suspicion for ACS at this time, chest x-ray does not show any acute process. Patient's hemoglobin is slightly lower than prev ious discharge level, currently at 9.7, he has not had any active vomiting while here in the ED, he did have a recent EGD that showed evidence of esophagitis without acute bleeding onset 08/25. I suspect he may have some irritation of his esophagitis causing the dark color of his emesis prior to presentation. I have low suspicion for large volume GI bleeding given his recent reassuring endoscopy and lack of any hematemesis here in the ED during his stay. On my reassessment the patient's oxygen saturation is 98% on 5L NC, he continues to display Kussmaul respirations with tachypnea. He is maintaining his airway without issue at this time, appropriate cook box filler small respirations noted for his ac idosis. He is able to respond to questions appropriately on my reassessment, blood pressure is greater than 100 systolic. Tachycardia is in the 130s. Insulin drip was initiated for DKA. Case was discussed with the on-call electronic game developer, Bharti Adrian, who was updated and aware of the patient's presentation for consultation. Case was also discussed with the on-call midlevel provider for the ICU this evening, Yariel Estrada, who evaluated the patient at the bedside. [facility] will be consulted for admission. * CRITICAL CARE TIME: ( 95 ) minutes -Treatment and stabilization of DKA with hyperglycemia of 999 requiring initiation of insulin drip, time spent at the bedside, treatment of hyperkalemia with potassium of 6.1 requiring IV medications and breathing treatment, time spent at the bedside, interpretation of diagnostic studies, discussion with other healthcare providers and arrangement of admission. Diagnosis: 1. Diabetic ketoacidosis 2. Elevated troponin 3. Leukocytosis 4. Anemia, mild 5. Nausea and vomiting 6. Hypoxia, acute 7. Aspiration pneumonia Disposition: Admission Austen Valverde DO Emergency Medicine Past Med/Surg History Medical History Anemia Anxiety Chronic back pain Chronic pain GERD (gastroesophageal reflux disease) Glaucoma History of seizure last seizure "couple years ago" -- d/t hypoglycemia HLD (hyperlipidemia) HTN (hypertension) Osteoarthritis Type 1 diabetes mellitus Surgical History History of appendectomy History of knee surgery Rt History of tonsillectomy Family History Other No family history of adverse response to anesthesia Social History Smoking Status: Never smoker Second Hand Exposure: No; Hx Alcohol Use: Yes Alcohol type: hard liquor Hx Substance Use: Yes Last Used Substance Other:: months ago Substance Use Type Other:: medical Preferred Language: Nigerian Communication Ability: Effective 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: No Beliefs That Will Affect Care: None Current Living Situation: Spouse Feels Safe at Home: Yes Assistive Devices: Glasses Allergies Allergies Allergy/AdvReac Type Severity Reaction Status Date / Time heparin AdvReac Severe HIT Verified 09/28/22 18:05 Home Meds Home Medications Medication Instructions Recorded Confirmed Medical Marijuana 1 dose inhalation DIRECTED PRN 02/06/22 09/28/22 NEEDED oxycodone 15 mg tablet 15 mg PO Q6H PRN Breakthrough Pain 02/09/22 09/28/22 quetiapine 200 mg tablet 200 mg PO HS 02/09/22 09/28/22 sildenafil 100 mg tablet 100 mg PO DAILY PRN Sexual Activity 02/09/22 09/28/22 aspirin 81 mg tablet,delayed 81 mg PO QPM 02/17/22 09/28/22 release esomeprazole magnesium 40 mg 40 mg PO QAM 02/17/22 09/28/22 capsule,delayed release (Nexium) ibuprofen 600 mg tablet 600 mg PO TID PRN Pain 02/17/22 09/28/22 lisinopril 40 mg tablet 40 mg PO QAM 02/17/22 09/28/22 oxycodone 15 mg tablet,crush 15 mg PO Q12 02/17/22 09/28/22 resistant,extended release 12 hr (OxyContin) sertraline 100 mg tablet 100 mg PO QAM 02/17/22 09/28/22 testosterone cypionate 200 mg/mL 200 mg IM WK 02/17/22 09/28/22 intramuscular oil Previous Rx's Medication Instructions Recorded insulin aspart U-100 100 unit/mL 1 sliding scale dose subcut 02/11/22 (3 mL) subcutaneous pen (Novolog USEASDIRECTD #3 mL Flexpen U-100 Insulin aspart) insulin glargine 100 unit/mL (3 25 unit (0.25 mL) subcut QAM #3 mL 02/11/22 mL) subcutaneous pen (Lantus Solostar U-100 Insulin) pen needle,diabetic, disp unit 32 #100 ea 02/11/22 gauge x 1/4", remover and disposal unit Results & Data (ED) Vital Signs Vital Signs - 24 hr 09/28/22 14:54 09/28/22 15:21 09/28/22 15:36 Temperature 36.6 C Temperature Source Oral Pulse Rate 169 H 134 H Pulse Rate [Finger] 135 H Pulse Rate from SpO2 Sensor Pulse Rhythm Regular Regular Pulse Rhythm [Finger] Regular Pulse Strength Normal Pulse Strength [Finger] Normal Respiratory Rate 28 H 20 20 Respiratory Effort / Characteristics Spontaneous Accessory Muscle Use Respiratory Depth Deep Normal Respiratory Pattern Regular Kussmaul Blood Pressure 130/57 L Blood Pressure [Right Arm] 130/57 L Blood Pressure Mean 81 Blood Pressure Mean [Right Arm] 81 Blood Pressure Position Sitting Blood Pressure Position [Right Arm] Lying Pulse Oximetry 88 L 100 100 Oxygen Delivery Method Room Air Non-rebreather Non-rebreather Oxygen Flow Rate 15 Sepsis Recent Fever Within 48 Hours No Sepsis New/Unexplained Change in Mental Status No Sepsis Action Taken by Nursing Physician Notified 09/28/22 15:45 09/28/22 16:17 09/28/22 15:24 Temperature Temperature Source Pulse Rate 135 H Pulse Rate [Finger] 133 H 131 H Pulse Rate from SpO2 Sensor 135 H Pulse Rhythm Pulse Rhythm [Finger] Regular Pulse Strength Pulse Strength [Finger] Normal Respiratory Rate 24 26 H 28 H Respiratory Effort / Characteristics Spontaneous Spontaneous Accessory Muscle Use Short of Breath SOB on Exertion Respiratory Depth Retractive Respiratory Pattern Tachypnea Blood Pressure Blood Pressure [Right Arm] 110/53 L Blood Pressure Mean Blood Pressure Mean [Right Arm] 72 Blood Pressure Position Blood Pressure Position [Right Arm] Lying Pulse Oximetry 100 100 88 L Oxygen Delivery Method Non-rebreather Nebulizer Oxygen Flow Rate 15 8 Sepsis Recent Fever Within 48 Hours Sepsis New/Unexplained Change in Mental Status Sepsis Action Taken by Nursing 09/28/22 15:30 09/28/22 16:00 09/28/22 16:16 Temperature Temperature Source Pulse Rate 135 H 115 H 132 H Pulse Rate [Finger] Pulse Rate from SpO2 Sensor 135 H 131 H 132 H Pulse Rhythm Pulse Rhythm [Finger] Pulse Strength Pulse Strength [Finger] Respiratory Rate 24 27 H 26 H Respiratory Effort / Characteristics Respiratory Depth Respiratory Pattern Blood Pressure Blood Pressure [Right Arm] Blood Pressure Mean Blood Pressure Mean [Right Arm] Blood Pressure Position Blood Pressure Position [Right Arm] Pulse Oximetry 100 100 100 Oxygen Delivery Method Oxygen Flow Rate Sepsis Recent Fever Within 48 Hours Sepsis New/Unexplained Change in Mental Status Sepsis Action Taken by Nursing 09/28/22 16:16 09/28/22 16:30 09/28/22 16:45 Temperature Temperature Source Pulse Rate 130 H 116 H Pulse Rate [Finger] Pulse Rate from SpO2 Sensor 134 H 132 H Pulse Rhythm Pulse Rhythm [Finger] Pulse Strength Pulse Strength [Finger] Respiratory Rate 33 H 27 H Respiratory Effort / Characteristics Respiratory Depth Respiratory Pattern Blood Pressure 110/53 L Blood Pressure [Right Arm] Blood Pressure Mean 72 Blood Pressure Mean [Right Arm] Blood Pressure Position Blood Pressure Position [Right Arm] Pulse Oximetry 99 100 Oxygen Delivery Method Oxygen Flow Rate Sepsis Recent Fever Within 48 Hours Sepsis New/Unexplained Change in Mental Status Sepsis Action Taken by Nursing 09/28/22 16:45 09/28/22 17:00 09/28/22 17:30 Temperature Temperature Source Pulse Rate 129 H Pulse Rate [Finger] Pulse Rate from SpO2 Sensor 128 H Pulse Rhythm Pulse Rhythm [Finger] Pulse Strength Pulse Strength [Finger] Respiratory Rate 29 H Respiratory Effort / Characteristics Respiratory Depth Respiratory Pattern Blood Pressure 155/130 H 105/50 L Blood Pressure [Right Arm] Blood Pressure Mean 138 68 Blood Pressure Mean [Right Arm] Blood Pressure Position Blood Pressure Position [Right Arm] Pulse Oximetry 100 Oxygen Delivery Method Oxygen Flow Rate Sepsis Recent Fever Within 48 Hours Sepsis New/Unexplained Change in Mental Status Sepsis Action Taken by Nursing 09/28/22 17:30 09/28/22 18:40 Temperature Temperature Source Pulse Rate 132 H Pulse Rate [Finger] 126 H Pulse Rate from SpO2 Sensor 135 H Pulse Rhythm Pulse Rhythm [Finger] Regular Pulse Strength Pulse Strength [Finger] Normal Respiratory Rate 28 H Respiratory Effort / Characteristics Spontaneous Accessory Muscle Use Retracting Short of Breath Respiratory Depth Retractive Respiratory Pattern Kussmaul Tachypnea Blood Pressure Blood Pressure [Right Arm] 104/62 Blood Pressure Mean Blood Pressure Mean [Right Arm] 76 Blood Pressure Position Blood Pressure Position [Right Arm] Lying Pulse Oximetry 100 98 Oxygen Delivery Method Room Air Oxygen Flow Rate Sepsis Recent Fever Within 48 Hours Sepsis New/Unexplained Change in Mental Status Sepsis Action Taken by Nursing Laboratory Data 09/28/22 15:26 09/28/22 15:26 Lab Results 09/28/22 09/28/22 09/28/22 Range/Units 15:26 15:26 15:26 WBC 27.51 H (4.8-10.8) K/ul RBC 3.07 L (4.63-6.08) M/uL Hgb 9.7 L (14.0-18.0) g/dl Hct 29.7 L (40.1-51.0) % MCV 96.7 (80.0-100.0) fL MCH 31.6 (25.0-34.0) pg MCHC 32.7 (32.0-36.0) g/dL RDW Std Deviation 42.4 (36.4-46.3) fL RDW Coeff of Denise 12.1 (11.5-14.5) % Plt Count 436 H (130-400) K/uL MPV 11.0 (9.4-12.4) fL Immature Gran % (Auto) 3.2 % Neut % (Auto) 89.5 % Lymph % (Auto) 3.3 % [place] % (Auto) 3.6 % Eos % (Auto) 0.0 % Baso % (Auto) 0.4 % Neut # (Auto) 24.60 H (1.4-6.5) K/uL Lymph # (Auto) 0.91 L (1.2-3.4) K/uL [place] # (Auto) 0.99 H (0.24-0.82) K/uL Eos # (Auto) 0.00 (0-0.50) K/uL Baso # (Auto) 0.12 (0-0.2) K/uL Immature Gran # (Auto) 0.89 H (0.00-0.02) K/uL PT 10.7 (9.0-12.0) Seconds INR 1.0 (0.9-1.1) APTT 25.9 (21.0-31.0) Seconds PTT Ratio 0.9 VBG pH (7.36-7.41) VBG pCO2 (38-50) mmHg VBG pO2 mmHg VBG HCO3 mmol/L VBG O2 Saturation % VBG Base Excess mEq/L Sodium 130 L (136-145) mmol/L Potassium 6.1 H* (3.5-5.1) mmol/L Chloride 84 L (98-107) mmol/L Carbon Dioxide 5 L* (21-32) mmol/L Anion Gap 41 H (3-11) BUN 45 H (6-23) mg/dl Creatinine 1.99 H (0.6-1.4) mg/dl Est Cr Clr Drug Dosing 35.6 ml/min Est GFR ( Amer) 40.8 ml/min Est GFR (Non-Af Amer) 35.2 ml/min BUN/Creatinine Ratio 22.6 H (10-20) Glucose 999 H* (70-99(Fasting)) mg/dl POC Glucose (70-99) mg/dl Lactate (0.4-2.0) mmol/L Calcium 9.5 (8.5-10.1) mg/dl Magnesium 2.6 H (1.7-2.4) mg/dl Total Bilirubin 0.6 (0.2-1.0) mg/dl Direct Bilirubin 0.1 (0-0.2) mg/dl AST 16 (13-39) U/L ALT 16 (7-52) U/L Alkaline Phosphatase 134 H (34-104) U/L Troponin I High Sens 308.4 H* (0-20) pg/ml Total Protein 6.6 (6.0-8.3) gm/dl Albumin 3.8 (3.4-5.0) gm/dl Procalcitonin (0-0.5) ng/ml Urine Color Urine Appearance (Clear) Urine pH (4.5-7.5) Ur Specific [place] (1.000-1.030) Urine Protein (Negative) Urine Glucose (UA) (Negative) Urine Ketones (Negative) Urine Blood (Negative) Urine Nitrite (Negative) Urine Bilirubin (Negative) Urine Urobilinogen (Negative) Ur Leukocyte Esterase (Negative) Blood Type Antibody Screen 09/28/22 09/28/22 09/28/22 Range/Units 15:26 15:30 15:49 WBC (4.8-10.8) K/ul RBC (4.63-6.08) M/uL Hgb (14.0-18.0) g/dl Hct (40.1-51.0) % MCV (80.0-100.0) fL MCH (25.0-34.0) pg MCHC (32.0-36.0) g/dL RDW Std Deviation (36.4-46.3) fL RDW Coeff of Denise (11.5-14.5) % Plt Count (130-400) K/uL MPV (9.4-12.4) fL Immature Gran % (Auto) % Neut % (Auto) % Lymph % (Auto) % [place] % (Auto) % Eos % (Auto) % Baso % (Auto) % Neut # (Auto) (1.4-6.5) K/uL Lymph # (Auto) (1.2-3.4) K/uL [place] # (Auto) (0.24-0.82) K/uL Eos # (Auto) (0-0.50) K/uL Baso # (Auto) (0-0.2) K/uL Immature Gran # (Auto) (0.00-0.02) K/uL PT (9.0-12.0) Seconds INR (0.9-1.1) APTT (21.0-31.0) Seconds PTT Ratio VBG pH (7.36-7.41) VBG pCO2 (38-50) mmHg VBG pO2 mmHg VBG HCO3 mmol/L VBG O2 Saturation % VBG Base Excess mEq/L Sodium (136-145) mmol/L Potassium (3.5-5.1) mmol/L Chloride (98-107) mmol/L Carbon Dioxide (21-32) mmol/L Anion Gap (3-11) BUN (6-23) mg/dl Creatinine (0.6-1.4) mg/dl Est Cr Clr Drug Dosing ml/min Est GFR ( Amer) ml/min Est GFR (Non-Af Amer) ml/min BUN/Creatinine Ratio (10-20) Glucose (70-99(Fasting)) mg/dl POC Glucose > 600 H* (70-99) mg/dl Lactate (0.4-2.0) mmol/L Calcium (8.5-10.1) mg/dl Magnesium (1.7-2.4) mg/dl Total Bilirubin (0.2-1.0) mg/dl Direct Bilirubin (0-0.2) mg/dl AST (13-39) U/L ALT (7-52) U/L Alkaline Phosphatase (34-104) U/L Troponin I High Sens (0-20) pg/ml Total Protein (6.0-8.3) gm/dl Albumin (3.4-5.0) gm/dl Procalcitonin 4.31 H (0-0.5) ng/ml Urine Color Urine Appearance (Clear) Urine pH (4.5-7.5) Ur Specific [place] (1.000-1.030) Urine Protein (Negative) Urine Glucose (UA) (Negative) Urine Ketones (Negative) Urine Blood (Negative) Urine Nitrite (Negative) Urine Bilirubin (Negative) Urine Urobilinogen (Negative) Ur Leukocyte Esterase (Negative) Blood Type O Positive Antibody Screen NEGATIVE 09/28/22 09/28/22 09/28/22 Range/Units 15:49 15:49 16:19 WBC (4.8-10.8) K/ul RBC (4.63-6.08) M/uL Hgb (14.0-18.0) g/dl Hct (40.1-51.0) % MCV (80.0-100.0) fL MCH (25.0-34.0) pg MCHC (32.0-36.0) g/dL RDW Std Deviation (36.4-46.3) fL RDW Coeff of Denise (11.5-14.5) % Plt Count (130-400) K/uL MPV (9.4-12.4) fL Immature Gran % (Auto) % Neut % (Auto) % Lymph % (Auto) % [place] % (Auto) % Eos % (Auto) % Baso % (Auto) % Neut # (Auto) (1.4-6.5) K/uL Lymph # (Auto) (1.2-3.4) K/uL [place] # (Auto) (0.24-0.82) K/uL Eos # (Auto) (0-0.50) K/uL Baso # (Auto) (0-0.2) K/uL Immature Gran # (Auto) (0.00-0.02) K/uL PT (9.0-12.0) Seconds INR (0.9-1.1) APTT (21.0-31.0) Seconds PTT Ratio VBG pH 7.07 L (7.36-7.41) VBG pCO2 16 L (38-50) mmHg VBG pO2 54 mmHg VBG HCO3 5 mmol/L VBG O2 Saturation 77.3 % VBG Base Excess -23.6 mEq/L Sodium (136-145) mmol/L Potassium (3.5-5.1) mmol/L Chloride (98-107) mmol/L Carbon Dioxide (21-32) mmol/L Anion Gap (3-11) BUN (6-23) mg/dl Creatinine (0.6-1.4) mg/dl Est Cr Clr Drug Dosing ml/min Est GFR ( Amer) ml/min Est GFR (Non-Af Amer) ml/min BUN/Creatinine Ratio (10-20) Glucose (70-99(Fasting)) mg/dl POC Glucose (70-99) mg/dl Lactate 6.0 H* (0.4-2.0) mmol/L Calcium (8.5-10.1) mg/dl Magnesium (1.7-2.4) mg/dl Total Bilirubin (0.2-1.0) mg/dl Direct Bilirubin (0-0.2) mg/dl AST (13-39) U/L ALT (7-52) U/L Alkaline Phosphatase (34-104) U/L Troponin I High Sens (0-20) pg/ml Total Protein (6.0-8.3) gm/dl Albumin (3.4-5.0) gm/dl Procalcitonin (0-0.5) ng/ml Urine Color Yellow Urine Appearance Clear (Clear) Urine pH 5.0 (4.5-7.5) Ur Specific [place] 1.023 (1.000-1.030) Urine Protein Negative (Negative) Urine Glucose (UA) 3+ H (Negative) Urine Ketones 3+ H (Negative) Urine Blood Negative (Negative) Urine Nitrite Negative (Negative) Urine Bilirubin Negative (Negative) Urine Urobilinogen Negative (Negative) Ur Leukocyte Esterase Negative (Negative) Blood Type Antibody Screen 09/28/22 09/28/22 Range/Units 17:40 19:22 WBC (4.8-10.8) K/ul RBC (4.63-6.08) M/uL Hgb (14.0-18.0) g/dl Hct (40.1-51.0) % MCV (80.0-100.0) fL MCH (25.0-34.0) pg MCHC (32.0-36.0) g/dL RDW Std Deviation (36.4-46.3) fL RDW Coeff of Denise (11.5-14.5) % Plt Count (130-400) K/uL MPV (9.4-12.4) fL Immature Gran % (Auto) % Neut % (Auto) % Lymph % (Auto) % [place] % (Auto) % Eos % (Auto) % Baso % (Auto) % Neut # (Auto) (1.4-6.5) K/uL Lymph # (Auto) (1.2-3.4) K/uL [place] # (Auto) (0.24-0.82) K/uL Eos # (Auto) (0-0.50) K/uL Baso # (Auto) (0-0.2) K/uL Immature Gran # (Auto) (0.00-0.02) K/uL PT (9.0-12.0) Seconds INR (0.9-1.1) APTT (21.0-31.0) Seconds PTT Ratio VBG pH (7.36-7.41) VBG pCO2 (38-50) mmHg VBG pO2 mmHg VBG HCO3 mmol/L VBG O2 Saturation % VBG Base Excess mEq/L Sodium (136-145) mmol/L Potassium (3.5-5.1) mmol/L Chloride (98-107) mmol/L Carbon Dioxide (21-32) mmol/L Anion Gap (3-11) BUN (6-23) mg/dl Creatinine (0.6-1.4) mg/dl Est Cr Clr Drug Dosing ml/min Est GFR ( Amer) ml/min Est GFR (Non-Af Amer) ml/min BUN/Creatinine Ratio (10-20) Glucose (70-99(Fasting)) mg/dl POC Glucose > 600 H* (70-99) mg/dl Lactate 6.4 H* (0.4-2.0) mmol/L Calcium (8.5-10.1) mg/dl Magnesium (1.7-2.4) mg/dl Total Bilirubin (0.2-1.0) mg/dl Direct Bilirubin (0-0.2) mg/dl AST (13-39) U/L ALT (7-52) U/L Alkaline Phosphatase (34-104) U/L Troponin I High Sens (0-20) pg/ml Total Protein (6.0-8.3) gm/dl Albumin (3.4-5.0) gm/dl Procalcitonin (0-0.5) ng/ml Urine Color Urine Appearance (Clear) Urine pH (4.5-7.5) Ur Specific [place] (1.000-1.030) Urine Protein (Negative) Urine Glucose (UA) (Negative) Urine Ketones (Negative) Urine Blood (Negative) Urine Nitrite (Negative) Urine Bilirubin (Negative) Urine Urobilinogen (Negative) Ur Leukocyte Esterase (Negative) Blood Type Antibody Screen Administered Medications Pantoprazole Sodium 40 mg/ (Dextrose) 100 mls @ 20 mls/hr IV Q5H TAMRA Stop: 10/28/22 15:44 Last Admin: 09/28/22 16:06 Dose: 8 mg/hr, 20 mls/hr Documented By: ROXANNE Insulin Human Regular 250 (units/ Sodium Chloride) 250 mls @ 6.4 mls/hr IV .Q24H TAMRA; Protocol Stop: 10/28/22 16:59 Last Admin: 09/28/22 18:35 Dose: 6.4 units/hr, 6.4 mls/hr Documented By: ROXANNE Co-signed By: ASHU Discontinued Medications Albuterol (Albuterol 0.5% Neb Soln 2.5 Mg/0.5 Ml Vial) 10 mg NEB NOW STA Stop: 09/28/22 15:27 Last Admin: 09/28/22 15:44 Dose: 10 mg Documented By: NOEMI Sodium Chloride (Nss 1000ml) 1,000 mls @ 999 mls/hr IV .Q1H1M TAMRA Stop: 09/28/22 16:30 Last Infusion: 09/28/22 16:39 Dose: 0 mls/hr Documented By: Admin: 09/28/22 15:39 Dose: 999 mls/hr Documented By: CLINT Sodium Chloride (Nss 1000ml) 1,000 mls @ 999 mls/hr IV .Q1H1M TAMRA Stop: 09/28/22 17:30 Last Infusion: 09/28/22 19:18 Dose: 0 mls/hr Documented By: Admin: 09/28/22 17:57 Dose: 999 mls/hr Documented By: Infusion: 09/28/22 16:41 Dose: 999 mls/hr Documented By: Admin: 09/28/22 15:40 Dose: 999 mls/hr Documented By: CLINT Calcium Gluconate 1,000 mg/ (Dextrose) 60 mls @ 240 mls/hr IV ONCE STA Stop: 09/28/22 15:40 Last Infusion: 09/28/22 16:29 Dose: 0 mls/hr Documented By: Admin: 09/28/22 16:14 Dose: 240 mls/hr Documented By: ROXANNE Sodium Bicarbonate 150 meq/ (Dextrose) 1,150 mls @ 290 mls/hr IV .Q3H58M STA Stop: 09/28/22 19:23 Last Admin: 09/28/22 16:35 Dose: 290 mls/hr Documented By: ROXANNE Pantoprazole Sodium (Protonix Bolus/Drip) 0 mls @ 1 mls/hr IV ONE STA Stop: 09/28/22 15:31 Last Admin: 09/28/22 16:15 Dose: 1 mls/hr Documented By: ROXANNE Pantoprazole Sodium 80 mg/ (Dextrose) 120 mls @ 400 mls/hr IV NOW ONE Stop: 09/28/22 15:47 Last Infusion: 09/28/22 16:23 Dose: 0 mls/hr Documented By: Admin: 09/28/22 16:05 Dose: 400 mls/hr Documented By: ROXANNE Sodium Chloride (Nss 1000ml) 1,000 mls @ 999 mls/hr IV .Q1H1M ONE Stop: 09/28/22 17:25 Last Infusion: 09/28/22 19:18 Dose: 0 mls/hr Documented By: Admin: 09/28/22 16:35 Dose: 999 mls/hr Documented By: ROXANNE Miscellaneous (Stat Iv) 1 each N/A NOW STA Stop: 09/28/22 15:27 Last Admin: 09/28/22 16:00 Dose: 1 each Documented By: ROXANNE Imaging Data Radiologist's Impression: Chest X-Ray 09/28/22 15:21 XR chest 1V portable CLINICAL HISTORY: Sepsis TECHNIQUE: Single frontal radiograph of the chest was obtained. Comparison: Comparison is made to chest radiograph 02/11/2022 FINDINGS: No lines and tubes are seen. The cardiomediastinal silhouette is normal. The lungs are clear. No evidence of pleural effusion or pneumothorax. IMPRESSION: No acute chest disease. ACT 112: Negative or not required by law. Electronically signed by: Robby Zuniga M.D. 09/28/2022 5:[address] 09/28/22 16:33 CT head/brain wo con CLINICAL HISTORY: 61 years-old Male with AMS. Acutely altered mental status TECHNIQUE: Multiple axial CT images of the head were obtained without contrast. A dose lowering technique was utilized adhering to the principles of ALARA. CT DOSE: 614.27 mGy.cm COMPARISON: 02/06/2022 FINDINGS: No acute intracranial hemorrhage, midline shift, intracranial mass, hydrocephalus, territorial ischemia or abnormal extra-axial collection. Involutional changes. Unchanged ventriculomegaly, likely on an ex vacuo basis. Motion degraded exam. The calvarium is intact. The paranasal sinuses, mastoid air cells, and middle ear cavities are clear. IMPRESSION: No acute intracranial abnormality. ACT 112: Negative or not required by law. The above report was generated using voice recognition software. It may contain grammatical, syntax or spelling errors. Electronically signed by: Freddie Trinidad M.D. 09/28/2022 6:35 PM Discharge Plan Visit Data Chief Complaint: GI Bleed Stated Complaint: N/V pale, Hyperglycemia ED Provider: Austen Valverde Discharge Problem: DKA (diabetic ketoacidosis) Forms Stand Alone Forms: [employer] Prescriptions Prescriptions: No Action Medical Marijuana 1 dose inhalation DIRECTED PRN (Reason: NEEDED) Rx Instructions: PT'S SPOUSE NOT SURE HOW OR HOW OFTEN USES. quetiapine 200 mg Tablet 200 mg PO HS Rx Instructions: for sleep sildenafil 100 mg tablet 100 mg PO DAILY PRN (Reason: Sexual Activity) Rx Instructions: TAKE 1 HOUR PRIOR TO SEXUAL ACTIVITY. MAX 1 DOSE PER 24 HOURS oxycodone 15 mg Tablet 15 mg PO Q6H PRN (Reason: Breakthrough Pain) insulin glargine [Lantus Solostar U-100 Insulin] 100 unit/mL (3 mL) insulin pen 25 unit subcut QAM Qty: 3 3RF Label Comments: 1/2 dose insulin aspart U-100 [Novolog Flexpen U-100 Insulin] 100 unit/mL (3 mL) insulin pen 1 sliding scale dose subcut USEASDIRECTD Qty: 3 0RF Rx Instructions: Use 8 units per meal; limit of 32 units/day (DME) pen needle,diabetic, disp unit 32 gauge x 1/4" needle See Rx Instructions .Route Qty: 100 0RF Rx Instructions: As directed testosterone cypionate 200 mg/mL oil 200 mg IM WK aspirin 81 mg Tablet,Delayed Release (Dr/Ec) 81 mg PO QPM esomeprazole magnesium [Nexium] 40 mg capsule,delayed release(DR/EC) 40 mg PO QAM ibuprofen 600 mg tablet 600 mg PO TID PRN (Reason: Pain) lisinopril 40 mg tablet 40 mg PO QAM oxycodone [OxyContin] 15 mg tablet,oral only,ext.rel.12 hr 15 mg PO Q12 sertraline 100 mg tablet 100 mg PO QAM Referrals Referrals: Mohit Rodriguez MD [Primary Care Provider] - : DKA (diabetic ketoacidosis) Qualifiers: Diabetes mellitus type: type 2 Diabetes mellitus complication detail: without coma Qualified Code(s): E11.10 - Type 2 diabetes mellitus with ketoacidosis without coma
[2022-09-28] MEDS ORDERED: PANTOPRAZOLE BOLUS/DRIP 1 EACH IV STA (15:30)
[2022-09-28] MEDS ORDERED: SODIUM CHLORIDE 0.9% 1000ML 1,000 ML IV SCH (15:30)
[2022-09-28] MEDS ORDERED: PANTOprazole 80 MG in DEXTROSE 5% 100 ML IV ONE (15:30)
[2022-09-28] MEDS: SODIUM CHLORIDE 0.9% 1000ML 1,000 ML IV SCH ×2 (15:40→17:57)
[2022-09-28 15:48] LABS: Hematocrit (blood only) 29.7 % (40.1-51.0); Hemoglobin 9.7 g/dl (14.0-18.0); Mean Corpuscular Hemoglobin 31.6 pg (25.0-34.0); Mean Corpuscular Hgb Conc 32.7 g/dL (32.0-36.0); Mean Corpuscular Volume 96.7 fL (80.0-100.0); Platelet Count 436 K/uL (130-400); RDW Coefficient of Variation 12.1 % (11.5-14.5); RDW Standard Deviation 42.4 fL (36.4-46.3); Red Blood Count 3.07 M/uL (4.63-6.08); White Blood Count 27.51 K/ul (4.8-10.8)
[2022-09-28 15:59] LABS: Partial Thromboplastin Ratio 0.9; Partial Thromboplastin Time 25.9 Seconds (21.0-31.0); Prothrombin Time 10.7 Seconds (9.0-12.0)
[2022-09-28 16:03] LABS: Base Excess VBG -23.6 mEq/L; HCO3 VBG 5 mmol/L; Oxygen Saturation VBG 77.3 %; PCO2 VBG 16 mmHg (38-50); PO2 VBG 54 mmHg; pH VBG 7.07 (7.36-7.41)
[2022-09-28] MEDS: PANTOprazole 40 MG in DEXTROSE 5% 100 ML IV SCH ×2 (16:06→20:15)
[2022-09-28 16:23] LABS: Troponin I High Sensitivity 308.4 pg/ml (0-20)
[2022-09-28] MEDS ORDERED: SODIUM CHLORIDE 0.9% 1000ML 1,000 ML IV ONE ×2 (16:25→18:41)
[2022-09-28 16:30] LABS: Basophils # (auto) 0.12 K/uL (0-0.2); Basophils % (auto) 0.4 %; Immature Granulocytes # (auto) 0.89 K/uL (0.00-0.02); Immature Granulocytes % (auto) 3.2 %; Lymphocytes # (auto) 0.91 K/uL (1.2-3.4); Lymphocytes % (auto) 3.3 %; Monocytes # (auto) 0.99 K/uL (0.24-0.82); Monocytes % (auto) 3.6 %; Neutrophils % (auto) 89.5 %
[2022-09-28 16:35] LABS: Appearance Urine Clear (Clear); Bilirubin Urine Negative (Negative); Blood Urine Negative (Negative); Color Urine Yellow; Glucose Urine UA 3+ (Negative); Ketones Urine 3+ (Negative); Leukocyte Esterase Urine Negative (Negative); Nitrite Urine Negative (Negative); Protein Urine Negative (Negative); Specific Gravity Urine 1.023 (1.000-1.030); Urobilinogen Urine Negative (Negative)
[2022-09-28 16:43] LABS: Bilirubin Direct 0.1 mg/dl (0-0.2)
[2022-09-28] MEDS ORDERED: GLUCAGON FOR INJ 1 MG VIAL SQ PRN (16:43)
[2022-09-28] MEDS ORDERED: CARBOHYDRATES FOR HYPOGLYCEMIA PO PRN (16:43)
[2022-09-28] MEDS ORDERED: DKA GOAL RANGE 150-250 mg/dl ONE (16:43)
[2022-09-28] MEDS ORDERED: GLUCOSE 40% GEL 15 GM TUBE PO PRN (16:43)
[2022-09-28] MEDS ORDERED: STAT INSULIN DRIP STA (16:43)
[2022-09-28] MEDS ORDERED: DEXTROSE 50% 50 ML SYRINGE IV PRN (16:43)
[2022-09-28] MEDS ORDERED: GLUCOSE 10 TAB/TUBE PO PRN (16:43)
[2022-09-28 16:44] LABS: Albumin Level 3.8 gm/dl (3.4-5.0); BUN Creatinine Ratio 22.6 (10-20); Bilirubin,Total 0.6 mg/dl (0.2-1.0); Calcium 9.5 mg/dl (8.5-10.1); Creatinine Clr Calc Pharmacy 35.6 ml/min; Est GFR (African American) 40.8 ml/min; Est GFR (Non-African American) 35.2 ml/min; Magnesium 2.6 mg/dl (1.7-2.4); Potassium 6.1 mmol/L (3.5-5.1); Total Protein 6.6 gm/dl (6.0-8.3)
[2022-09-28] MEDS ORDERED: INSULIN REGULAR 250 UNITS in SODIUM CHLORIDE 0.9% 247.5 ML IV SCH (17:00)
--- NOTE | 2022-09-28 17:30 | XRay Report ---
XR chest 1V portable CLINICAL HISTORY: Sepsis TECHNIQUE: Single frontal radiograph of the chest was obtained. Comparison: Comparison is made to chest radiograph 02/11/2022 FINDINGS: No lines and tubes are seen. The cardiomediastinal silhouette is normal. The lungs are clear. No evid ence of pleural effusion or pneumothorax. IMPRESSION: No acute chest disease. ACT 112: Negative or not required by law. Electronically signed by: Robby Zuniga M.D. 09/28/2022 5:29 PM
[2022-09-28] MEDS ORDERED: AMPICILLIN/SULBACTAM SOD 3,000 MG in 0.9 % SODIUM CHLORIDE 100 ML IV STA (18:17)
--- NOTE | 2022-09-28 18:36 | CT Scan Report ---
CT head/brain wo con CLINICAL HISTORY: 61 years-old Male with AMS. Acutely altered mental status TECHNIQUE: Multiple axial CT images of the head were obtained without contrast. A dose lowering tech nique was utilized adhering to the principles of ALARA. CT DOSE: 614.27 mGy.cm COMPARISON: 02/06/2022 FINDINGS: No acute intracranial hemorrhage, midline shift, intracranial mass, hydrocephalus, territorial ischem ia or abnormal extra-axial collection. Involutional changes. Unchanged ventriculomegaly, likely on an ex vacuo basis. Motion degraded exam. The calvarium is intact. The paranasal sinuses, mastoid air cells, and middle ear cavities are clear . IMPRESSION: No acute intracranial abnormality. ACT 112: Negative or not required by law. The above report was generated using voice recognition software. It may contain grammatical, syntax o r spelling errors. Electronically signed by: Freddie Trinidad M.D. 09/28/2022 6:35 PM
--- NOTE | 2022-09-28 19:33 | Critical Care Consultation ---
Date of Consultation September 28, 2022 Assessment & Plan (1) DKA (diabetic ketoacidosis): (2) High anion gap metabolic acidosis: (3) GERD (gastroesophageal reflux disease): (4) Hematemesis: (5) Sepsis: (6) Hyperkalemia: (7) Anemia: Plan Reason Critically Ill: 61 YOM admitted after being found lethargic at home and with dark black emesis. Patient admitted to ICU for DKA, High anion gap acidosis, hyperkalemia, elevated WBC, Lactic acid, and PCT. Neuro - Metabolic encephalopathy, chronic back pain CAM ICU: [facility] Patient presents with metabolic encephalopathy with multiple etiologies to include DKA and meeting sepsis criteria, hypotension No focal deficits and no siezure- non con head CT negative for acute process supportive care- should clear with resolving acidosis and hyperglycemia Cardiac - Shock, Elevated HScTNI, Elevated Lactate - Patient presents with shock unspecified at this time- hypovolemia, acute blood loss, and sepsis are in play - Received 4L crystalloid in EMD- continue with Normosol at 125ml per hour - Type and Screened - will maintain large bore IV - see ID below for sepsis care and GI section for blood loss - Maintain MAPS>65- consider arterial line and vasopressor support as needed - Continue to trend his HScTNI- his ECG is reviewed and in the setting of hyperkalemia - repeat following normalization of potassium - consider ECHO repeat in AM - favoring type II demand at this time - if continues to increase continue with fondaparinux for VTE and NSTEMI protection ([place] V trial) Respiratory - Hypoxia, Current Vape user - reported hypoxic on arrival- may be related to low perfusion state as currently 96% on room air - CXR without opacities - COVID/RSV are negative GI - Hematemesis with possible GIB unspecified, GERD/Gastritis - Is without abdominal/epigastric pain, abdomen soft without gaurding - Unsure of his NSAID use - EGD in 09/14- gastritis on home PPI - BUN 45 - Currently on Protonix infusion- continue - NGT if hematemesis returns - NPO - Hold further NSAIDs - Transfuse for active bleeding or HGB <8- likely to decrease with replacing vascular volume RENAL/LYTES - High anion gap metabolic acidosis, hyperkalemia, TOD II on CKD - Metabolic Acidosis in the setting of hyperglycemia- DKA- see below - also with lactic acidosis and increase in BUN - Replete intravascular volume- correct acidosis this should also assist with lowering potassium- recheck down to 5.0 - If K continues to increase- will lower with patiromer and acute treatment - avoid further nephrotoxic medications - follow CRCl with fondaparinux - No acute needs UA negative for infection will send urine tox screen ENDO - DKA - Continue DKA protocol and insulin infusion per protocol - add dextrose to IVF when BG < 250 - replete electrolytes - transition when gap closed and stabilized HEME - Anemia - acute on chronic- at this time can't rule out acute blood loss, however hematemesis has seemed to be resolve - follow HGB levels - Transfuse as above - Concern for HIT on admission in January following heparin infusion for NSTEMI- PF4 antibody was 0.212 (<0.4 ref)- reflex serotonin assay not performed ID - Sepsis - Patient technically meets sepsis criteria however source not identified and values likely elevated in DKA and hypovolemia, but is with leukocytosis (with likely hemoconcentration) and noted elevation of PCT - SIRS - 3, Qsofa- 3 - obtain CT scan of abdomen and pelvis - Blood cultures pending - trend lactate with resuscitation - broad spectrum abx at this time until cultures return or clinical picture becomes more clear - MRSA swab pending LINES/IV ACCESS - PIV Continue use of these lines DVT PROPHYLAXIS - SCDS, fondaparinux 2.5 mg SC daily DISPO- ICU until acidosis resolved, hemodynamically stable and hgb levels stable. I have personally spent 45 minutes of critical care time in the direct manageme nt of this patient. This is a life/limb threatening event. This includes time spent evaluating patient, direct bedside care, chart review, placing orders, interpretation of diagnostic studies, discussion with consultants, patient, and family members, as well as other required patient management activities. This time is exclusive of all separately billable procedures, and teaching time and separate from and in addition to any other critical care service time. Thank you for allowing us to participate in the care of this patient. Please refer to my attending physician's documentation for any further recommendations. History of Present Illness Reason for Consultation: DKA, GI bleed unspecified Requesting Physician: Tato Matias Attending Physician: Tato Matias History of Present Illness 61 YOM with medical history of: DKA, GERD, Gastritis, DM I, chronic back pain, HLD, HTN. Patient was brought into the EMD via EMS after being found lethargic, lying in bed, with noting emesis in the trash can and on bed sheets. Patient presents encephalopathic, hypotensive, tachycardic. states that she went out of town and when she returned, the house was disheveled and he was noted with dark black emesis as above. She also noted multiple vaping pens around the house as well. She states that when she leaves, he does not take care of himself or take his medications. In the EMD the patient received 4liters of crystalloid infusion to include isotonic HCo3. He had routine labs performed to include lactate and HScTNI. He was also noted with coffee ground staining to his tongue and his teeth. His labs were notable for glucose >900, HCO3 of 5, and PH of 7.07 lactate- 6.4, and potassium of 6.1, WBC 27 with elevated PCT to 4.31. Patient was also typed and screened, he was started on insulin infusion. Hospitalist was consulted for admission, and ICU was consulted for the above. Patient will be admitted for continuation of insulin drip, correction of DKA, following HGB levels as well as HScTNI, and sepsis work up. Patient had very similar admission back in January 2022 presenting with hematemesis, elevated HScTNI, Hypotension requiring short vasopressor use. Patient history of GERD and hematemesis and did have an EGD performed 09/14 which revealed gastritis. His is unsure if he is taking his PPI or continuing to use NSAIDS for his back pain. His most recent ECHO was also performed during that admission 02/12 where his HScTNI increased to > 56,772.8. His ECHO was normal EF and without RWMA and with Grade I diastolic dysfunction. Was also concern for HIT at that time as well with negative PF4 antibody. Discussed history with and code status: states patient would want to be FULL CODE COVID/FLU/RSV: NEGATIVE Allergies Allergy/AdvReac Type Severity Reaction Status Date / Time heparin AdvReac Severe HIT Verified 09/28/22 18:05 Home Medications Medication Instructions Recorded Confirmed Type Medical Marijuana 1 dose inhalation DIRECTED PRN 02/06/22 09/28/22 History NEEDED oxycodone 15 mg tablet 15 mg PO Q6H PRN Breakthrough Pain 02/09/22 09/28/22 History quetiapine 200 mg tablet 200 mg PO HS 02/09/22 09/28/22 History sildenafil 100 mg tablet 100 mg PO DAILY PRN Sexual Activity 02/09/22 09/28/22 History insulin aspart U-100 100 unit/mL 1 sliding scale dose subcut 02/11/22 09/28/22 Rx (3 mL) subcutaneous pen (Novolog USEASDIRECTD #3 mL Flexpen U-100 Insulin aspart) insulin glargine 100 unit/mL (3 25 unit (0.25 mL) subcut QAM #3 mL 02/11/22 09/28/22 Rx mL) subcutaneous pen (Lantus Solostar U-100 Insulin) pen needle,diabetic, disp unit 32 #100 ea 02/11/22 09/28/22 Rx gauge x 1/4", remover and disposal unit aspirin 81 mg tablet,delayed 81 mg PO QPM 02/17/22 09/28/22 History release esomeprazole magnesium 40 mg 40 mg PO QAM 02/17/22 09/28/22 History capsule,delayed release (Nexium) ibuprofen 600 mg tablet 600 mg PO TID PRN Pain 02/17/22 09/28/22 History lisinopril 40 mg tablet 40 mg PO QAM 02/17/22 09/28/22 History oxycodone 15 mg tablet,crush 15 mg PO Q12 02/17/22 09/28/22 History resistant,extended release 12 hr (OxyContin) sertraline 100 mg tablet 100 mg PO QAM 02/17/22 09/28/22 History testosterone cypionate 200 mg/mL 200 mg IM WK 02/17/22 09/28/22 History intramuscular oil Patient History Medical History (Updated 09/28/22 @ 20:12 by ABDOUL Odom) Anemia Anxiety Chronic back pain Chronic pain GERD (gastroesophageal reflux disease) Glaucoma History of seizure last seizure "couple years ago" -- d/t hypoglycemia HLD (hyperlipidemia) HTN (hypertension) Osteoarthritis Type 1 diabetes mellitus Surgical History History of appendectomy History of knee surgery Rt History of tonsillectomy Family History Other No family history of adverse response to anesthesia Social History Smoking Status: Never smoker Second Hand Exposure: No; Hx Alcohol Use: Yes Alcohol type: hard liquor Hx Substance Use: Yes Last Used Substance Other:: months ago Substance Use Type Other:: medical Preferred Language: Hebrew Communication Ability: Effective Radiological Engineer Required: No Beliefs That Will Affect Care: None Current Living Situation: Spouse Feels Safe at Home: Yes Assistive Devices: Glasses Review of Systems Review of Systems: REVIEW OF SYSTEMS: Unable to obtain full ROS secondary to patient's encephalopathy Patient does state that feeling much better. Physical Exam Physical Exam: PHYSICAL EXAM: General: awake, alert, confused Head: Normocephalic, atraumatic ENT: PERRLA, EOMI, no pharyngeal exudate, mucous membranes dry, with coffee ground staining to tongue and teeth/lips Neuro: AAO x 2 - person and place, speech clear, pleasantly confused, strength intact bilaterally 5/5, sensation intact and equal all extremities and dermatomes, no pronator drift Chest: equal rise and fall of the chest, no accessory muscle use, no heaves or thrills, decreased in bases without wheeze or egophony Cardiac: Regular rate and rhythm, telemetry reviewed- sinus tachycardia, skin warm dry, cap refill <3 seconds, peripheral pulses +2 no JVD, no murmur, no edema GI: NABS x 4 quadrants, soft, nontender to palpation, no rebound, guarding or tenderness : Spontaneously voiding, no pain, no CVA tenderness, Skin: no rash or erythema Results & Data Results & [facility] ([facility]) Vital Signs (Past 12 Hours) Vital Signs Temp Pulse Pulse Resp BP BP Pulse Ox 09/28/22 18:40 126 H 28 H 104/62 98 09/28/22 17:30 132 H 100 09/28/22 17:30 105/50 L 09/28/22 17:00 129 H 29 H 100 09/28/22 16:45 155/130 H 09/28/22 16:45 116 H 27 H 100 09/28/22 16:30 130 H 33 H 99 09/28/22 16:16 110/53 L 09/28/22 16:16 132 H 26 H 100 01/05/23 16:00 115 H 27 H 100 09/28/22 15:30 135 H 24 100 09/28/22 15:24 135 H 28 H 88 L 09/28/22 16:17 131 H 26 H 110/53 L 100 09/28/22 15:45 133 H 24 100 09/28/22 15:36 135 H 20 130/57 L 100 09/28/22 15:21 134 H 20 100 09/28/22 14:54 36.6 C 169 H 28 H 130/57 L 88 L O2 Del Method O2 Flow Rate 09/28/22 18:40 Room Air 09/28/22 17:30 09/28/22 17:30 09/28/22 17:00 09/28/22 16:45 09/28/22 16:45 09/28/22 16:30 09/28/22 16:16 09/28/22 16:16 09/28/22 16:00 09/28/22 15:30 09/28/22 15:24 09/28/22 16:17 Nebulizer 8 09/28/22 15:45 Non-rebreather 15 09/28/22 15:36 Non-rebreather 09/28/22 15:21 Non-rebreather 15 09/28/22 14:54 Room Air Laboratory Results Abnormal lab results 09/28/22 09/28/22 09/28/22 Range/Units 15:26 15:26 15:26 WBC 27.51 H (4.8-10.8) K/ul RBC 3.07 L (4.63-6.08) M/uL Hgb 9.7 L (14.0-18.0) g/dl Hct 29.7 L (40.1-51.0) % Plt Count 436 H (130-400) K/uL Neut # (Auto) 24.60 H (1.4-6.5) K/uL Lymph # (Auto) 0.91 L (1.2-3.4) K/uL Lake # (Auto) 0.99 H (0.24-0.82) K/uL Immature Gran # (Auto) 0.89 H (0.00-0.02) K/uL VBG pH (7.36-7.41) VBG pCO2 (38-50) mmHg Sodium 130 L (136-145) mmol/L Potassium 6.1 H* (3.5-5.1) mmol/L Chloride 84 L (98-107) mmol/L Carbon Dioxide 5 L* (21-32) mmol/L Anion Gap 41 H (3-11) BUN 45 H (6-23) mg/dl Creatinine 1.99 H (0.6-1.4) mg/dl BUN/Creatinine Ratio 22.6 H (10-20) Glucose 999 H* (70-99(Fasting)) mg/dl POC Glucose (70-99) mg/dl Lactate (0.4-2.0) mmol/L Magnesium 2.6 H (1.7-2.4) mg/dl Alkaline Phosphatase 134 H (34-104) U/L Troponin I High Sens 308.4 H* (0-20) pg/ml Procalcitonin 4.31 H (0-0.5) ng/ml Urine Glucose (UA) (Negative) Urine Ketones (Negative) 09/28/22 09/28/22 09/28/22 Range/Units 15:30 15:49 15:49 WBC (4.8-10.8) K/ul RBC (4.63-6.08) M/uL Hgb (14.0-18.0) g/dl Hct (40.1-51.0) % Plt Count (130-400) K/uL Neut # (Auto) (1.4-6.5) K/uL Lymph # (Auto) (1.2-3.4) K/uL Lake # (Auto) (0.24-0.82) K/uL Immature Gran # (Auto) (0.00-0.02) K/uL VBG pH 7.07 L (7.36-7.41) VBG pCO2 16 L (38-50) mmHg Sodium (136-145) mmol/L Potassium (3.5-5.1) mmol/L Chloride (98-107) mmol/L Carbon Dioxide (21-32) mmol/L Anion Gap (3-11) BUN (6-23) mg/dl Creatinine (0.6-1.4) mg/dl BUN/Creatinine Ratio (10-20) Glucose (70-99(Fasting)) mg/dl POC Glucose > 600 H* (70-99) mg/dl Lactate 6.0 H* (0.4-2.0) mmol/L Magnesium (1.7-2.4) mg/dl Alkaline Phosphatase (34-104) U/L Troponin I High Sens (0-20) pg/ml Procalcitonin (0-0.5) ng/ml Urine Glucose (UA) (Negative) Urine Ketones (Negative) 09/28/22 09/28/22 09/28/22 Range/Units 16:19 17:40 19:22 WBC (4.8-10.8) K/ul RBC (4.63-6.08) M/uL Hgb (14.0-18.0) g/dl Hct (40.1-51.0) % Plt Count (130-400) K/uL Neut # (Auto) (1.4-6.5) K/uL Lymph # (Auto) (1.2-3.4) K/uL Lake # (Auto) (0.24-0.82) K/uL Immature Gran # (Auto) (0.00-0.02) K/uL VBG pH (7.36-7.41) VBG pCO2 (38-50) mmHg Sodium (136-145) mmol/L Potassium (3.5-5.1) mmol/L Chloride (98-107) mmol/L Carbon Dioxide (21-32) mmol/L Anion Gap (3-11) BUN (6-23) mg/dl Creatinine (0.6-1.4) mg/dl BUN/Creatinine Ratio (10-20) Glucose (70-99(Fasting)) mg/dl POC Glucose > 600 H* (70-99) mg/dl Lactate 6.4 H* (0.4-2.0) mmol/L Magnesium (1.7-2.4) mg/dl Alkaline Phosphatase (34-104) U/L Troponin I High Sens (0-20) pg/ml Procalcitonin (0-0.5) ng/ml Urine Glucose (UA) 3+ H (Negative) Urine Ketones 3+ H (Negative) Diagnostic Findings Chest X-Ray 09/28/22 15:21 XR chest 1V portable CLINICAL HISTORY: Sepsis TECHNIQUE: Single frontal radiograph of the chest was obtained. Comparison: Comparison is made to chest radiograph 02/11/2022 FINDINGS: No lines and tubes are seen. The cardiomediastinal silhouette is normal. The lungs are clear. No evidence of pleural effusion or pneumothorax. IMPRESSION: No acute chest disease. ACT 112: Negative or not required by law. Electronically signed by: Robby Zuniga M.D. 09/28/2022 5:[address] 09/28/22 16:33 CT head/brain wo con CLINICAL HISTORY: 61 years-old Male with AMS. Acutely altered mental status TECHNIQUE: Multiple axial CT images of the head were obtained without contrast. A dose lowering technique was utilized adhering to the principles of ALARA. CT DOSE: 614.27 mGy.cm COMPARISON: 02/06/2022 FINDINGS: No acute intracranial hemorrhage, midline shift, intracranial mass, hydrocephalus, territorial ischemia or abnormal extra-axial collection. Involutional changes. Unchanged ventriculomegaly, likely on an ex vacuo basis. Motion degraded exam. The calvarium is intact. The paranasal sinuses, mastoid air cells, and middle ear cavities are clear. IMPRESSION: No acute intracranial abnormality. ACT 112: Negative or not required by law. The above report was generated using voice recognition software. It may contain grammatical, syntax or spelling errors. Electronically signed by: Freddie Trinidad M.D. 09/28/2022 6:35 PM Medications Administered Home Medications Medical Marijuana 1 dose inhalation DIRECTED PRN NEEDED 02/06/22 [History Confirmed 09/28/22] oxycodone 15 mg tablet 15 mg PO Q6H PRN Breakthrough Pain 02/09/22 [History Confirmed 09/28/22] quetiapine 200 mg tablet 200 mg PO HS 02/09/22 [History Confirmed 09/28/22] sildenafil 100 mg tablet 100 mg PO DAILY PRN Sexual Activity 02/09/22 [History Confirmed 09/28/22] insulin aspart U-100 100 unit/mL (3 mL) subcutaneous pen (Novolog Flexpen U-100 Insulin aspart) 1 sliding scale dose subcut USEASDIRECTD #3 mL 02/11/22 [Rx Confirmed 09/28/22] insulin glargine 100 unit/mL (3 mL) subcutaneous pen (Lantus Solostar U-100 Insulin) 25 unit (0.25 mL) subcut QAM #3 mL 02/11/22 [Rx Confirmed 09/28/22] pen needle,diabetic, disp unit 32 gauge x 1/4", remover and disposal unit #100 ea 02/11/22 [Rx Confirmed 09/28/22] aspirin 81 mg tablet,delayed release 81 mg PO QPM 02/17/22 [History Confirmed 09/28/22] esomeprazole magnesium 40 mg capsule,delayed release (Nexium) 40 mg PO QAM 02/17/22 [History Confirmed 09/28/22] ibuprofen 600 mg tablet 600 mg PO TID PRN Pain 02/17/22 [History Confirmed 09/28/22] lisinopril 40 mg tablet 40 mg PO QAM 02/17/22 [History Confirmed 09/28/22] oxycodone 15 mg tablet,crush resistant,extended release 12 hr (OxyContin) 15 mg PO Q12 02/17/22 [History Confirmed 09/28/22] sertraline 100 mg tablet 100 mg PO QAM 02/17/22 [History Confirmed 09/28/22] testosterone cypionate 200 mg/mL intramuscular oil 200 mg IM WK 02/17/22 [History Confirmed 09/28/22] Active Medications Dextrose (Dextrose 50% 50 Ml Syringe) 25 - 50 ml IV UD PRN; Protocol PRN Reason: Hypoglycemia Protocol Stop: 10/28/22 16:42 Glucagon (Glucagon For Inj 1 Mg Vial) 1 mg SQ UD PRN; Protocol PRN Reason: Hypoglycemia Protocol Stop: 10/28/22 16:42 Glucose (Glucose 40% Gel 15 Gm Tube) 15 - 30 gm PO UD PRN; Protocol PRN Reason: Hypoglycemia Protocol Stop: 10/28/22 16:42 Glucose (Glucose 10 Tab/Tube) 4 - 8 tab PO UD PRN; Protocol PRN Reason: Hypoglycemia Treatment Stop: 10/28/22 16:42 Pantoprazole Sodium 40 mg/ (Dextrose) 100 mls @ 20 mls/hr IV Q5H [facility] Stop: 10/28/22 15:44 Last Admin: 09/28/22 16:06 Dose: 8 mg/hr, 20 mls/hr Parenteral Electrolytes (Normosol-R) 1,000 mls @ 125 mls/hr IV .Q8H [facility] Stop: 10/28/22 16:44 Insulin Human Regular 250 (units/ Sodium Chloride) 250 mls @ 6.4 mls/hr IV .Q24H [facility]; Protocol Stop: 10/28/22 16:59 Last Admin: 09/28/22 18:35 Dose: 6.4 units/hr, 6.4 mls/hr Insulin Aspart (Insulin Aspart Per Unit) 0 units SC ACHS [facility] Stop: 10/28/22 16:59 Miscellaneous (Carbohydrates For Hypoglycemia ) 15 - 30 gm PO UD PRN PRN Reason: Hypoglycemia Protocol Stop: 10/28/22 16:42 ECG Additional Comments: Supraventricular tachycardia with frequent Premature ventricular complexes T wave abnormality, consider anterior ischemia Abnormal ECG When compared with ECG of 07-FEB-2022 00:18, Premature ventricular complexes are now Present Vent. rate has increased BY 86 BPM Criteria for Anterior infarct are no longer Present Nonspecific T wave abnormality no longer evident in Lateral leads Coding Level of Care Code Critical Care 1st 30-74 mins Diagnoses DKA (diabetic ketoacidosis) E11.10 Diabetes mellitus complication detail: without coma Diabetes mellitus type: type 2 High anion gap metabolic acidosis E87.2 GERD (gastroesophageal reflux disease) K21.9 Hematemesis K92.0 Sepsis A41.9 Hyperkalemia E87.5 Anemia D64.9 (1) DKA (diabetic ketoacidosis) Diabetes mellitus complication detail: without coma Diabetes mellitus type: type 2 Qualified Code(s): E11.10 - Type 2 diabetes mellitus with ketoacidosis without coma
--- NOTE | 2022-09-28 19:42 | History & Physical Report ---
Date of Service September 28, 2022 Assessment & Plan (1) DKA (diabetic ketoacidosis): Plan: Austen is a 61 year old male w/ PmHx insulin dependent diabetes mellitus, last DKA 01/2022 admitted for DKA and altered mental status. DKA, Insulin Dependent T2DM, HAGMA: -BSG 999, Anion Gap 41, lactic acid 6.0, potassium 6.1, pH 7.07 on VBG, WBC 27 on admission. -Last A1c from January 2022 10.3. -Given 1L NSS bolus x4, 150meq bicarb, started on insulin drip in ED. -CXR negative for acute pulmonary process. Procal 4.31. -U/A negative for bacteria, WBC, Nitrate; + for glucose and ketones. -Continue on normasol at 125ml/hr. -Most likely DKA due to noncompliance with home insulin. -Neuro checks q1h while on insulin drip. -BMP q4h until gap closes. Trend Mg, Phos. -Repeat A1c ordered. -Transition to D5-NS when glucose <250. -Pharmacy glycemic consult in place. Hyperkalemia: -Potassium 6.1 on admission. -May be falsely elevated due to DKA. -Continue to trend w/ q4h BMP. -Continue normosol 125ml/hr, replenish K+ as needed. -On continuous cardiac monitoring. Hematemesis: -Hgb 9.7 on admission, baseline on previous admission 10-12. -May be from DKA induced vomiting. -CT A&P ordered for possible internal GI bleeding. -Pantoprazole drip. -Continue to monitor AM CBC. Elevated Troponin: -Troponin 308 on admission. EKG tachycardic, normal rhythm without any acute ischemic changes. -Most likely due to demand ischemia from hypovolemia. -Trend until peak. Acute Renal Failure: -Baseline creatinine 0.8-1.1 -Creatinine 1.99 on admission. -Likely secondary to hypovolemia from DKA and excess vomiting. -Normosol 125ml/hr as above. -Trend q4h BMP. F/E/N/GI: NPO while on insulin drip. VTE Prophylaxis: SCD's, no chemoprophylaxis in setting of possible UGI bleed. Code status: Full code, discussed with patient's and she said he stated to her before he would like everything done for life sustaining measures. Dispo: ICU. (2) Type 2 diabetes mellitus: (3) Anemia: (4) Hyperkalemia: (5) Hematemesis: (6) GERD (gastroesophageal reflux disease): (7) ARF (acute renal failure): (8) High anion gap metabolic acidosis: History of Present Illness Chief Complaint: Altered Mental Status Primary Care Provider: Mohit Rodriguez MD Austen is a 61 year old male w/ PmHx insulin dependent diabetes mellitus, last DKA 01/2022 brought by EMS to [facility] for altered mental status. Patient has a history of insulin dependent diabetes mellitus with questionable compliance and previous admission to this hospital in January of 2022 for DKA and septic shock. Spoke to patient's on the phone, she relayed that she had previously been traveling abroad the past 3 weeks and talking on the phone with her most days with him being of normal mentation. When she came back from her travel earlier today she found her immobile and in an altered mental status. She states he had multiple vape pens surrounding him and the house was in a very bad mess, possibly a alliance party thrown while she was away she says. He vapes when she is not around or he will sneak away to vape, he does not do any cigarettes or other tobacco products to her knowledge. He occasionally consumes alcohol, only a beer or two when he is with her however she knows he likes to take shots of fireball when at a alliance party or with friends. She states she found him with dark dried blood surrounding him and around his mouth. Patient seen at the bedside unable to have coherent thought, oscillating back and forth between stating the current year is 2011 or 2022. Discussed code status with , she states he would like to have everything done in the case of cardiac resuscitation or intubation. Allergies Allergy/AdvReac Type Severity Reaction Status Date / Time heparin AdvReac Severe HIT Verified 09/28/22 18:05 Home Medications Medication Instructions Recorded Confirmed Type Medical Marijuana 1 dose inhalation DIRECTED PRN 02/06/22 09/28/22 History NEEDED oxycodone 15 mg tablet 15 mg PO Q6H PRN Breakthrough Pain 02/09/22 09/28/22 History quetiapine 200 mg tablet 200 mg PO HS 02/09/22 09/28/22 History sildenafil 100 mg tablet 100 mg PO DAILY PRN Sexual Activity 02/09/22 09/28/22 History insulin aspart U-100 100 unit/mL 1 sliding scale dose subcut 02/11/22 09/28/22 Rx (3 mL) subcutaneous pen (Novolog USEASDIRECTD #3 mL Flexpen U-100 Insulin aspart) insulin glargine 100 unit/mL (3 25 unit (0.25 mL) subcut QAM #3 mL 02/11/2202/13 Rx mL) subcutaneous pen (Lantus Solostar U-100 Insulin) pen needle,diabetic, disp unit 32 #100 ea 02/11/22 09/28/22 Rx gauge x 1/4", remover and disposal unit aspirin 81 mg tablet,delayed 81 mg PO QPM 02/17/22 09/28/22 History release esomeprazole magnesium 40 mg 40 mg PO QAM 02/17/22 09/28/22 History capsule,delayed release (Nexium) ibuprofen 600 mg tablet 600 mg PO TID PRN Pain 02/17/22 09/28/22 History lisinopril 40 mg tablet 40 mg PO QAM 02/17/22 09/28/22 History oxycodone 15 mg tablet,crush 15 mg PO Q12 02/17/22 09/28/22 History resistant,extended release 12 hr (OxyContin) sertraline 100 mg tablet 100 mg PO QAM 02/17/22 09/28/22 History testosterone cypionate 200 mg/mL 200 mg IM WK 02/17/22 09/28/22 History intramuscular oil Past Med/Surg History Medical History (Updated 09/29/22 @ 13:29 by Raheel Ludwig MD) Anemia Anxiety Chronic back pain Chronic pain GERD (gastroesophageal reflux disease) Glaucoma History of seizure last seizure "couple years ago" -- d/t hypoglycemia HLD (hyperlipidemia) HTN (hypertension) Osteoarthritis Type 1 diabetes mellitus Surgical History History of appendectomy History of knee surgery Rt History of tonsillectomy Family History Other No family history of adverse response to anesthesia Social History Smoking Status: Never smoker Second Hand Exposure: No; Hx Alcohol Use: Yes Alcohol type: hard liquor Hx Substance Use: Yes Last Used Substance: Days (ago) Last Used Substance Other:: months ago Substance Use Type Other:: medical Preferred Language: Khmer Communication Ability: Impaired Transplant Immunologist Required: No Beliefs That Will Affect Care: Church Current Living Situation: Spouse Other Information That Helps Us Care for You: No Feels Safe at Home: Yes Safety Concerns: Feels Safe At This Time Assistive Devices: None Review of Systems Review of Systems: As per HPI. Physical Exam Constitutional: WD/WN, vitals as above Eyes: PERRL, conjunctivae normal, anicteric sclerae ENMT: Dry blood in mouth on roof of mouth, tongue, several teeth. Respiratory: normal respiratory effort, lungs clear to auscultation Cardiovascular: Rate/Rhythm: regular rhythm and + tachycardic Heart Sounds: normal S1 and normal S2 Gastrointestinal (Abdomen): normal bowel sounds, soft, nontender, no hepatosplenomegaly Neurologic: patellar DTR's 2+ bilat, sensation intact Psychiatric: Orientation: alert and oriented to person Apperance: + disheveled Results & Data Results & Data ([facility]) Vital Signs (Past 12 Hours) Vital Signs Temp Pulse Pulse Resp BP BP Pulse Ox 09/28/22 18:40 126 H 28 H 104/62 98 09/28/22 17:30 132 H 100 09/28/22 17:30 105/50 L 09/28/22 17:00 129 H 29 H 100 09/28/22 16:45 155/130 H 09/28/22 16:45 116 H 27 H 100 09/28/22 16:30 130 H 33 H 99 09/28/22 16:16 110/53 L 09/28/22 16:16 132 H 26 H 100 09/28/22 16:00 115 H 27 H 100 09/28/22 15:30 135 H 24 100 09/28/22 15:24 135 H 28 H 88 L 09/28/22 16:17 131 H 26 H 110/53 L 100 09/28/22 15:45 133 H 24 100 09/28/22 15:36 135 H 20 130/57 L 100 09/28/22 15:21 134 H 20 100 09/28/22 14:54 36.6 C 169 H 28 H 130/57 L 88 L O2 Del Method O2 Flow Rate 09/28/22 18:40 Room Air 09/28/22 17:30 09/28/22 17:30 09/28/22 17:00 09/28/22 16:45 09/28/22 16:45 09/28/22 16:30 09/28/22 16:16 09/28/22 16:16 09/28/22 16:00 09/28/22 15:30 09/28/22 15:24 09/28/22 16:17 Nebulizer 8 09/28/22 15:45 Non-rebreather 15 09/28/22 15:36 Non-rebreather 09/28/22 15:21 Non-rebreather 15 09/28/22 14:54 Room Air Critical Care Time 45 minutes Supervising Physician Co-Signing Physician Notes Attending addendum: I have physically seen this patient, have supervised the medical residents activities, and agree with the H&P unless as otherwise noted. Assessment and Plan: DKA- Poorly controlled diabetes, with most recent A1c of 10.3 on 02/12 Received 4 L normal saline bolus in ED, 150 mEq of bicarb, and started on insulin drip Continue insulin drip per protocol Follow urine culture and sensitivity follow blood culture and sensitivity Normosol at 125 mils per hour Address medical noncompliance, as patient was Not likely using insulin properly BMP, magnesium, phosphorus and venous blood gas every 4 hours Repeat A1c for a.m. Patient is being mated to the ICU, consult garment inspector team Hyperkalemia- Potassium 6.1 on admission Expect to improve with administration of insulin fluids Repeat laboratories as noted Calcium gluconate 1 g IV Elevated troponins- Troponin 308 on admission Follow serial troponins, cardiac rhythm monitoring, and echocardiogram with Dopplers Acute kidney injury- Creatinine 1.99 on admission, with base 0.8-1.1 Should improve with IV fluids as given above Repeat laboratories in a.m. Remaining orders and notations as noted Resident Activity Tracking Resident Involvement: Resident Care Provided Care Provided: Adult [facility] Medicine (1) DKA (diabetic ketoacidosis) Diabetes mellitus complication detail: without coma Diabetes mellitus type: type 2 Qualified Code(s): E11.10 - Type 2 diabetes mellitus with ketoacidosis without coma
[2022-09-28 20:03] LABS: Influenza A virus by PCR Negative (Neg); Influenza B virus by PCR Negative (Neg); RSV by PCR Negative (Neg); SARS CoV2 RNA(COVID-19) Ceph NEGATIVE (Negative)
[2022-09-28 20:34] LABS: BUN Creatinine Ratio 24.6 (10-20); Calcium 8.1 mg/dl (8.5-10.1); Creatinine Clr Calc Pharmacy 38.7 ml/min; Est GFR (African American) 45.1 ml/min; Est GFR (Non-African American) 38.9 ml/min
[2022-09-28] MEDS: INSULIN ASPART PER UNIT SC SCH ×2 (20:48→22:26)
[2022-09-28] MEDS: NORMOSOL-R 1,000 ML IV SCH (20:49)
[2022-09-28 21:21] LABS: Amphetamines+Metham, Urine Neg (Neg); Barbiturates, Urine Neg (Neg); Benzodiazepine, Urine Neg (Neg); Cocaine, Urine Neg (Neg); MDMA (Ecstacy), Urine Neg (Neg); Methadone, Urine Neg (Neg); Opiate, Urine Neg (Neg); Phencyclidine, Urine Neg (Neg)
[2022-09-28] MEDS ORDERED: PHARMACY GLYCEMIC MGMT CONSULT PRN (21:22)
[2022-09-28] MEDS ORDERED: ICU Protocol for HYPERglycemia SCH (21:22)
[2022-09-28] MEDS ORDERED: PENDING D5 1/2NS+20mEq KCL IVF SCH (21:30)
[2022-09-28 21:56] LABS: HCO3 ABG 6 mmol/L (19-24); Oxygen Saturation ABG > 100.0 % (90-95); PCO2 ABG 14 mmHg (35-46); PO2 ABG 113 mmHg (80-95); pH ABG 7.22 (7.35-7.45)
[2022-09-28 22:00] LABS: Estimated Average Glucose 232 mg/dl; Hemoglobin A1C 9.7 % (4.5-5.6)
[2022-09-28 22:27] LABS: BUN Creatinine Ratio 26.2 (10-20); Calcium 7.6 mg/dl (8.5-10.1); Creatinine Clr Calc Pharmacy 43.6 ml/min; Est GFR (African American) 50.1 ml/min; Est GFR (Non-African American) 43.2 ml/min; Magnesium 2.4 mg/dl (1.7-2.4); Phosphorus 3.6 mg/dl (2.5-4.9); Potassium 3.6 mmol/L (3.5-5.1)
[2022-09-28] MEDS: DOXYCYCLINE HYCLATE 100 MG in DEXTROSE 5% 100 ML IV SCH (22:27)
[2022-09-28] MEDS: cefTRIAXone SODIUM 1,000 MG in DEXTROSE 5% AD-VAN 50 ML IV SCH (22:27)
[2022-09-28] MEDS ORDERED: POTASSIUM CHLORIDE 20 MEQ/15 ML UDC PO STA (22:28)
[2022-09-28 22:38] LABS: Allen Test Pos (Pos)
[2022-09-28] MEDS ORDERED: POTASSIUM CHLORIDE / WTR 10 MEQ/100 ML PLCT IV ONE (22:45)
[2022-09-28 23:35] LABS: Creatinine Clr Calc Pharmacy 44.7 ml/min; Est GFR (African American) 51.5 ml/min; Est GFR (Non-African American) 44.5 ml/min
[2022-09-29] MEDS: PANTOprazole 40 MG in DEXTROSE 5% 100 ML IV SCH ×5 (00:49→20:49)
[2022-09-29 00:58] LABS: Hematocrit (blood only) 21.2 % (40.1-51.0); Hemoglobin 7.6 g/dl (14.0-18.0); Mean Corpuscular Hemoglobin 31.9 pg (25.0-34.0); Mean Corpuscular Hgb Conc 35.8 g/dL (32.0-36.0); Mean Corpuscular Volume 89.1 fL (80.0-100.0); Mean Platelet Volume 9.4 fL (9.4-12.4); Platelet Count 271 K/uL (130-400); RDW Standard Deviation 38.8 fL (36.4-46.3); Red Blood Count 2.38 M/uL (4.63-6.08)
[2022-09-29 03:16] LABS: BUN Creatinine Ratio 24.7 (10-20); Calcium 8.4 mg/dl (8.5-10.1); Creatinine Clr Calc Pharmacy 45.2 ml/min; Est GFR (African American) 52.3 ml/min; Est GFR (Non-African American) 45.1 ml/min; Magnesium 2.3 mg/dl (1.7-2.4); Phosphorus 1.4 mg/dl (2.5-4.9); Potassium 3.4 mmol/L (3.5-5.1)
[2022-09-29] MEDS ORDERED: POTASSIUM PHOS 3 MMOL/1 ML INFUSION IV STA (03:17)
[2022-09-29] MEDS ORDERED: POTASSIUM CHLORIDE CRTAB 20 MEQ TABCR PO STA (03:17)
[2022-09-29] MEDS ORDERED: POTASSIUM PHOSPHATE 21 MMOL in SODIUM CHLORIDE 0.9% 500 ML IV ONE (03:45)
[2022-09-29] MEDS: NORMOSOL-R 1,000 ML IV SCH (04:31)
--- NOTE | 2022-09-29 05:53 | Electrocardiogram Report ---
Test Reason : Blood Pressure : / mmHG Vent. Rate : 133 BPM Atrial Rate : 133 BPM P-R Int : 000 ms QRS Dur : 086 ms QT Int : 296 ms P-R-T Axes : 000 049 063 degrees QTc Int : 438 ms Sinus tachycardia When compared with ECG of 07-FEB-2022 00:18, Criteria for Anterior infarct are no longer Present Nonspecific T wave abnormality no longer evident in Lateral leads Confirmed by Deven Ma ([id number]) on 09/29/2022 5:53:24 AM Referred By: REFERRED SELF Confirmed By:Deven Ma
[2022-09-29 06:27] LABS: BUN Creatinine Ratio 27.7 (10-20); Calcium 7.9 mg/dl (8.5-10.1); Creatinine Clr Calc Pharmacy 56.4 ml/min; Est GFR (African American) 68.3 ml/min; Est GFR (Non-African American) 58.9 ml/min; Magnesium 2.1 mg/dl (1.7-2.4); Phosphorus 1.7 mg/dl (2.5-4.9); Potassium 3.3 mmol/L (3.5-5.1)
[2022-09-29] MEDS ORDERED: D5W AND 1/2NSS + 20MEQ KCL 20 MEQ/1,000 ML BAG IV SCH (06:30)
[2022-09-29 06:47] LABS: Basophils # (auto) 0.02 K/uL (0-0.2); Basophils % (auto) 0.1 %; Hematocrit (blood only) 20.6 % (40.1-51.0); Hemoglobin 7.6 g/dl (14.0-18.0); Immature Granulocytes # (auto) 0.19 K/uL (0.00-0.02); Immature Granulocytes % (auto) 0.9 %; Lymphocytes # (auto) 1.01 K/uL (1.2-3.4); Lymphocytes % (auto) 4.6 %; Mean Corpuscular Hemoglobin 32.1 pg (25.0-34.0); Mean Corpuscular Hgb Conc 36.9 g/dL (32.0-36.0); Mean Corpuscular Volume 86.9 fL (80.0-100.0); Mean Platelet Volume 9.7 fL (9.4-12.4); Monocytes # (auto) 1.83 K/uL (0.24-0.82); Monocytes % (auto) 8.4 %; Neutrophils # (auto) 18.68 K/uL (1.4-6.5); Ovalocytes 1+; Platelet Count 275 K/uL (130-400); Polychromasia 1+; RDW Coefficient of Variation 11.9 % (11.5-14.5); RDW Standard Deviation 37.5 fL (36.4-46.3); Red Blood Count 2.37 M/uL (4.63-6.08); White Blood Count 21.73 K/ul (4.8-10.8)
[2022-09-29] MEDS ORDERED: LANTUS PER UNIT CHARGE SQ ONE (07:45)
[2022-09-29] MEDS: POTASSIUM CHLORIDE / WTR 10 MEQ/100 ML PLCT IV SCH ×2 (08:07→09:31)
--- NOTE | 2022-09-29 08:20 | CT Scan Report ---
ABDOMEN AND PELVIS CT WITHOUT CONTRAST CT DOSE: 289.00 mGy.cm HISTORY: hematemesis, question of intra-abd infection TECHNIQUE: Multiaxial CT images of the abdomen and pelvis were performed without contrast. A dose lo wering technique was utilized adhering to the principles of ALARA. COMPARISON STUDY: Lumbar spine MRI 04/17/2022. Abdomen and pelvis CT 02/06/2022. FINDINGS: An old L2 vertebroplasty again noted. There is motion artifact. The lung bases appear clear . No pneumoperitoneum. No pneumatosis. Patchy areas of sclerosis within the left ribs which are subop timally assessed due to motion artifact but may represent healing fractures moderate circumferential thickening of the distal esophagus. Hepatic steatosis. The unenhanced gallbladder, pancreas, spleen, adrenal glands, and kidneys are within normal limits. No hydronephrosis. No retroperitoneal or pelvic lymphadenopathy. The bladder is unremarkable. Normal caliber abdominal aorta. No pelvic free fluid. Suboptimal evaluation for bowel pathology due to the lack of intravenous and oral contrast. However, there is no definite bowel wall thickening or obstruction. Colonic diverticulosis. No evidence for ac [place] diverticulitis. The appendix appears surgically absent. IMPRESSION: 1. Overall suboptimal evaluation abdomen and pelvis due to the motion artifact. 2. Moderate circumferential thickening of the distal esophagus which favors an esophagitis. This shou ld be followed up with endoscopy. 3. No definite bowel wall thickening or obstruction. 4. Colonic diverticulosis. No evidence for acute diverticulitis. 5. Hepatic steatosis. ACT 112: Negative or not required by law. Electronically signed by: Parth Rosas M.D. 09/29/2022 8:18 AM
[2022-09-29] MEDS ORDERED: FONDAPARINUX 2.5 MG/0.5 ML SYR SQ SCH (09:00)
--- NOTE | 2022-09-29 09:25 | Critical Care Progress Note ---
Date of Service September 29, 2022 Assessment & Plan (1) DKA (diabetic ketoacidosis): (2) High anion gap metabolic acidosis: (3) GERD (gastroesophageal reflux disease): (4) Hematemesis: (5) Sepsis: (6) Hyperkalemia: (7) Anemia: (8) Elevated troponin: Plan Reason Critically Ill: 61 YOM admitted after being found lethargic at home and with dark black emesis. Patient admitted to ICU for DKA, high anion gap acidosis, hyperkalemia, elevated WBC, lactic acid, and procal. Neuro - Metabolic encephalopathy, chronic back pain CAM ICU: [facility] Presents with metabolic encephalopathy with multiple etiologies to include DKA and meeting sepsis criteria, hypotension No focal deficits and no seizure- non con head CT negative for acute process supportive care- confusion has improved with resolving acidosis and hyperglycemia Cardiac - Shock, Elevated HScTNI, Elevated Lactate - Presented with shock- hypovolemia, acute blood loss, and sepsis are in play - Received 4L crystalloid in ED. Normosol transitioned to 1/2NSS/D5w + potassium at 125 mls/hr - Type and Screened - will maintain large bore IV - see ID below for sepsis care and GI section for blood loss - Maintain MAP>65- consider arterial line and vasopressor support as needed - Continue to trend HScTNI - ECG: ST depressions in septal and lateral leads. Peaked T waves improving. - Echo: EF 60-65%, no wall motion abnormalities, grade 1 diastolic dysfunction - favoring type II demand at this time, however, trops now at 20k. Will cont. to trend. - CPK 1000 - cardiology consulted, will cont. to monitor -nonurgent cath may be considered -no heparin drip indicated at this time - continue with fondaparinux for VTE and NSTEMI protection ([place] V trial) Respiratory - Hypoxia, Current Vape (marijuana) user - reported hypoxic on arrival- now 99% on room air - CXR without opacities - COVID/RSV negative GI - Hematemesis with possible GIB unspecified, GERD/Gastritis - presents without abdominal/epigastric pain, abdomen soft without guarding - Unsure of his NSAID use. Hold further NSAIDs. - CT A/P suggests esophagitis - EGD in 09/14- gastritis on home PPI - Currently on Protonix infusion- continue - NGT if hematemesis returns - monitor H&H RENAL/LYTES - High anion gap metabolic acidosis, hyperkalemia, TOD II on CKD - Metabolic Acidosis in the setting of hyperglycemia- DKA- see below. Also with lactic acidosis and increase in BUN. - Repleted intravascular volume- GAP closed - potassium now low normal, replenishing - avoid further nephrotoxic medications - follow CRCl with fondaparinux - No acute needs -UA negative for infection -urine tox screen neg ENDO - DKA - Continue DKA protocol and insulin infusion per protocol - cont. IVF with D5w. Gap closed, transitioning to SQ. Clear diet ordered. - replete electrolytes - pharmacy following HEME - Anemia - acute on chronic- at this time can't rule out acute blood loss, however, hematemesis has seemed to be resolve - follow HGB levels. Transfuse as needed. - FOBT ordered - Concern for HIT on admission in January following heparin infusion for NSTEMI- PF4 antibody was 0.212 (<0.4 ref)- reflex serotonin assay not performed ID - Sepsis - Patient technically met sepsis criteria however source not identified and values likely elevated in DKA and hypovolemia, but is with leukocytosis (with likely hemoconcentration) and noted elevation of procal - SIRS - 3, Qsofa- 3 - CT A/P without obvious signs of infection - Blood cultures pending - lactate now wnl - broad spectrum abx at this time until cultures return or clinical picture becomes more clear. Will retrieve chest XR today, if negative may consider discontinuing abx. - MRSA swab neg LINES/IV ACCESS -PIVs, continue use of these lines DVT PROPHYLAXIS -SCDS DISPO- ICU until acidosis resolved, hemodynamically stable, and hgb levels stable. Thank you for allowing us to participate in the care of this patient. Please refer to my attending physician's documentation for any further recommendations. Admission and Anticipated Discharge Date Admission Date: September 28, 2022 Supervising Physician Co-Signing Physician Notes Dr. Long was the resident-physician during care of patient. I separately evaluated patient for martinez portions of the history and the exam. I was present during the critical portion of medical decision making, and I discussed the case with the resident. I generally agree with the findings and plan except for any additions/exceptions noted. Patient seen and examined at bedside. No acute distress, no adverse events overnight. Patient was insulin drip at 4. He was awake and alert, answering all the questions appropriately Was complaining of pain in the left arm IV site because of potassium infusion. Denies any nausea or vomiting Had poor appetite. No headache or blurry vision. Constitutional: No acute distress HEENT: EOMI, PERRLA Respiratory system:Decreased air entry bilaterally, no wheeze, no rhonchi, Mild crackles bilateral lower lobes CVS: S1-S2 positive, no murmurs or gallops, tachycardia Abdomen: Soft, nontender, nondistended, positive bowel sounds x4 Extremities: +2 pulses bilaterally radialis/ dorsalis pedis, no cyanosis, no edema Neuro: Awake alert oriented x3 Psych: Normal mood and affect G/U: No B[place] --Prophylaxis VTE: IPC GI: Pantoprazole drip Lines: Peripheral Diet: N.p.o. Plan: In/out: +6.6 L, urine output 2100 mL. Potassium and phosphorus are being replaced. Patient's troponin peaked to 20,000. We will get cardiology involved. I do think patient will need cardiac cath. Patient procalcitonin was increased. Chest x-ray did not show any signs of pneumonia, urine is also clean. Denies any significant abdominal pain on physical exam today. Continue with antibiotics for 24 hours and then can stop. H&H to be repeated at 12. Insulin drip has already been bridged. Was the patient is off insulin drip, he will be okay to be downgraded to medical floor Please note the above document was generated using voice recognition software. It may contain grammatical, syntax or spelling errors.Any formal questions or concerns about the content, text or information contained within the body of this dictation should be directly addressed to the provider for clarification. Subjective Patient seen at bedside this morning. Apparently with episode of vomit yesterday evening with meds without blood, no episodes since. Some nausea. Currently complains of pain at right hand IV site. Not much of an appetite. Denies chest pain, sob, headache, abd pain. Review of Systems Review of Systems: All systems reviewed & are unremarkable except as noted in HPI & below Physical Exam Physical Exam: General: awake, alert, pleasant HEENT: Normocephalic, atraumatic, EOMI, mucous membranes dry Neuro: AAOx3 (unable to name hospital), speech clear, strength intact bilaterally 5/5, sensation intact and equal all extremities Chest: equal rise and fall of the chest, no accessory muscle use, no heaves or thrills, decreased in bases without wheeze or egophony Cardiac: Tachy. Normal rhythm. cap refill <3 seconds, peripheral pulses +2, no JVD, no murmur, no edema GI: NABS x 4 quadrants, soft, nontender to palpation, no rebound tenderness or guarding. : spontaneously voiding, no CVA tenderness Skin: warm, dry, no rash or erythema Results & Data Results & Data ([facility]) Vital Signs (Past 12 Hours) Vital Signs Temp Pulse Pulse Pulse Resp BP BP 09/29/22 06:30 115 H 25 H 09/29/22 06:30 141/73 H 09/29/22 06:00 116 H 16 09/29/22 06:00 141/67 H 09/29/22 05:30 140/69 09/29/22 05:30 116 H 21 09/29/22 05:00 112 H 8 L 09/29/22 05:00 136/64 09/29/22 04:30 112 H 17 09/29/22 04:30 134/66 09/29/22 04:00 117 H 20 09/29/22 04:00 135/66 09/29/22 03:30 148/65 H 09/29/22 03:30 116 H 28 H 09/29/22 03:00 118 H 23 09/29/22 03:00 139/71 09/29/22 02:30 132/65 09/29/22 02:30 118 H 18 09/29/22 02:30 132/65 09/29/22 02:00 118 H 21 09/29/22 02:00 145/65 H 09/29/22 01:30 118/61 09/29/22 01:30 113 H 12 09/29/22 01:00 116 H 23 09/29/22 01:00 137/66 09/29/22 03:00 36.7 C 09/29/22 00:30 113 H 14 09/29/22 00:30 119/57 L 09/29/22 00:00 118 H 20 09/29/22 00:00 123/54 L 09/29/22 00:00 127 H 09/28/22 23:30 134/64 01/05/23 23:30 124 H 22 09/28/22 23:00 127 H 24 09/28/22 23:00 145/68 H 09/28/22 22:30 126 H 24 09/28/22 22:30 135/69 09/28/22 23:00 36.8 C 09/28/22 22:26 36.7 C 129 H 129 H 24 123/63 09/28/22 22:12 125/56 L 09/28/22 22:12 126 H 24 09/28/22 22:11 126 H 20 09/28/22 21:30 123/63 09/28/22 21:30 129 H 37 H 09/28/22 21:22 91 H 09/28/22 21:30 36.7 C Pulse Ox O2 Del Method 09/29/22 06:30 99 09/29/22 06:30 09/29/22 06:00 98 09/29/22 06:00 09/29/22 05:30 09/29/22 05:30 97 09/29/22 05:00 97 09/29/22 05:00 09/29/22 04:30 99 09/29/22 04:30 09/29/22 04:00 98 09/29/22 04:00 09/29/22 03:30 09/29/22 03:30 98 09/29/22 03:00 96 09/29/22 03:00 09/29/22 02:30 09/29/22 02:30 98 09/29/22 02:30 09/29/22 02:00 99 09/29/22 02:00 09/29/22 01:30 09/29/22 01:30 97 09/29/22 01:00 100 09/29/22 01:00 09/29/22 03:00 09/29/22 00:30 99 09/29/22 00:30 09/29/22 00:00 98 09/29/22 00:00 09/29/22 00:00 09/28/22 23:30 09/28/22 23:30 100 09/28/22 23:00 100 09/28/22 23:00 09/28/22 22:30 100 09/28/22 22:30 09/28/22 23:00 09/28/22 22:26 100 Room Air 09/28/22 22:12 09/28/22 22:12 99 09/28/22 22:11 09/28/22 21:30 09/28/22 21:30 100 09/28/22 21:22 09/28/22 21:30 Laboratory Results 09/29/22 09/29/22 09/29/22 Range/Units 09:14 08:50 07:47 WBC (4.8-10.8) K/ul RBC (4.63-6.08) M/uL Hgb (14.0-18.0) g/dl Hct (40.1-51.0) % MCV (80.0-100.0) fL MCH (25.0-34.0) pg MCHC (32.0-36.0) g/dL RDW Std Deviation (36.4-46.3) fL RDW Coeff of Denise (11.5-14.5) % Plt Count (130-400) K/uL MPV (9.4-12.4) fL Immature Gran % (Auto) % Neut % (Auto) % Lymph % (Auto) % [place] % (Auto) % Eos % (Auto) % Baso % (Auto) % Neut # (Auto) (1.4-6.5) K/uL Lymph # (Auto) (1.2-3.4) K/uL [place] # (Auto) (0.24-0.82) K/uL Eos # (Auto) (0-0.50) K/uL Baso # (Auto) (0-0.2) K/uL Immature Gran # (Auto) (0.00-0.02) K/uL Absolute Nucleated RBC Nucleated RBC % (auto) Platelet Estimate Polychromasia Ovalocytes PT (9.0-12.0) Seconds INR (0.9-1.1) APTT (21.0-31.0) Seconds PTT Ratio ABG pH (7.35-7.45) ABG pCO2 (35-46) mmHg ABG pO2 (80-95) mmHg ABG HCO3 (19-24) mmol/L ABG O2 Saturation (90-95) % ABG Base Excess (-9-1.8) mEq/L Fred Test (Pos) VBG pH (7.36-7.41) VBG pCO2 (38-50) mmHg VBG pO2 mmHg VBG HCO3 mmol/L VBG O2 Saturation % VBG Base Excess mEq/L Oxygen Given Sodium Pending (136-145) mmol/L Potassium Pending (3.5-5.1) mmol/L Chloride Pending (98-107) mmol/L Carbon Dioxide Pending (21-32) mmol/L Anion Gap Pending (3-11) BUN Pending (6-23) mg/dl Creatinine Pending (0.6-1.4) mg/dl Est Cr Clr Drug Dosing Pending ml/min Est GFR ( Amer) Pending ml/min Est GFR (Non-Af Amer) Pending ml/min BUN/Creatinine Ratio Pending (10-20) Glucose Pending (70-99(Fasting)) mg/dl POC Glucose 115 H 140 H (70-99) mg/dl Estimat Average Glucose mg/dl Hemoglobin A1c (4.5-5.6) % Lactate (0.4-2.0) mmol/L Calcium Pending (8.5-10.1) mg/dl Phosphorus Pending (2.5-4.9) mg/dl Magnesium Pending (1.7-2.4) mg/dl Total Bilirubin (0.2-1.0) mg/dl Direct Bilirubin (0-0.2) mg/dl AST (13-39) U/L ALT (7-52) U/L Alkaline Phosphatase (34-104) U/L Troponin I High Sens (0-20) pg/ml Total Protein (6.0-8.3) gm/dl Albumin (3.4-5.0) gm/dl Procalcitonin (0-0.5) ng/ml Urine Color Urine Appearance (Clear) Urine pH (4.5-7.5) Ur Specific [place] (1.000-1.030) Urine Protein (Negative) Urine Glucose (UA) (Negative) Urine Ketones (Negative) Urine Blood (Negative) Urine Nitrite (Negative) Urine Bilirubin (Negative) Urine Urobilinogen (Negative) Ur Leukocyte Esterase (Negative) Nasal Screen MRSA (PCR) (Negative) Urine Opiates Screen (Neg) Ur Methadone, Qual (Neg) Urine Barbiturates (Neg) Ur Phencyclidine (PCP) (Neg) U Amphetamin/Meth Scrn (Neg) MDMA (Ecstasy) Screen (Neg) U Benzodiazepines Scrn (Neg) Ur Cocaine Metabolite (Neg) U Marijuana (THC) Screen (Neg) SARS-CoV-2 (PCR) (Negative) Influenza Type A (PCR) (Neg) Influenza Type B (PCR) (Neg) RSV (RT-PCR) (Neg) Blood Type Antibody Screen 09/29/22 09/29/22 09/29/22 Range/Units 07:07 06:00 05:51 WBC 21.73 H (4.8-10.8) K/ul RBC 2.37 L (4.63-6.08) M/uL Hgb 7.6 L (14.0-18.0) g/dl Hct 20.6 L* (40.1-51.0) % MCV 86.9 (80.0-100.0) fL MCH 32.1 (25.0-34.0) pg MCHC 36.9 H (32.0-36.0) g/dL RDW Std Deviation 37.5 (36.4-46.3) fL RDW Coeff of Denise 11.9 (11.5-14.5) % Plt Count 275 (130-400) K/uL MPV 9.7 (9.4-12.4) fL Immature Gran % (Auto) 0.9 % Neut % (Auto) 86.0 % Lymph % (Auto) 4.6 % [place] % (Auto) 8.4 % Eos % (Auto) 0.0 % Baso % (Auto) 0.1 % Neut # (Auto) 18.68 H (1.4-6.5) K/uL Lymph # (Auto) 1.01 L (1.2-3.4) K/uL [place] # (Auto) 1.83 H (0.24-0.82) K/uL Eos # (Auto) 0.00 (0-0.50) K/uL Baso # (Auto) 0.02 (0-0.2) K/uL Immature Gran # (Auto) 0.19 H (0.00-0.02) K/uL Absolute Nucleated RBC Nucleated RBC % (auto) Platelet Estimate Polychromasia 1+ Ovalocytes 1+ PT (9.0-12.0) Seconds INR (0.9-1.1) APTT (21.0-31.0) Seconds PTT Ratio ABG pH (7.35-7.45) ABG pCO2 (35-46) mmHg ABG pO2 (80-95) mmHg ABG HCO3 (19-24) mmol/L ABG O2 Saturation (90-95) % ABG Base Excess (-9-1.8) mEq/L Fred Test (Pos) VBG pH (7.36-7.41) VBG pCO2 (38-50) mmHg VBG pO2 mmHg VBG HCO3 mmol/L VBG O2 Saturation % VBG Base Excess mEq/L Oxygen Given Sodium (136-145) mmol/L Potassium (3.5-5.1) mmol/L Chloride (98-107) mmol/L Carbon Dioxide (21-32) mmol/L Anion Gap (3-11) BUN (6-23) mg/dl Creatinine (0.6-1.4) mg/dl Est Cr Clr Drug Dosing ml/min Est GFR ( Amer) ml/min Est GFR (Non-Af Amer) ml/min BUN/Creatinine Ratio (10-20) Glucose (70-99(Fasting)) mg/dl POC Glucose 144 H 204 H (70-99) mg/dl Estimat Average Glucose mg/dl Hemoglobin A1c (4.5-5.6) % Lactate (0.4-2.0) mmol/L Calcium (8.5-10.1) mg/dl Phosphorus (2.5-4.9) mg/dl Magnesium (1.7-2.4) mg/dl Total Bilirubin (0.2-1.0) mg/dl Direct Bilirubin (0-0.2) mg/dl AST (13-39) U/L ALT (7-52) U/L Alkaline Phosphatase (34-104) U/L Troponin I High Sens (0-20) pg/ml Total Protein (6.0-8.3) gm/dl Albumin (3.4-5.0) gm/dl Procalcitonin (0-0.5) ng/ml Urine Color Urine Appearance (Clear) Urine pH (4.5-7.5) Ur Specific [place] (1.000-1.030) Urine Protein (Negative) Urine Glucose (UA) (Negative) Urine Ketones (Negative) Urine Blood (Negative) Urine Nitrite (Negative) Urine Bilirubin (Negative) Urine Urobilinogen (Negative) Ur Leukocyte Esterase (Negative) Nasal Screen MRSA (PCR) (Negative) Urine Opiates Screen (Neg) Ur Methadone, Qual (Neg) Urine Barbiturates (Neg) Ur Phencyclidine (PCP) (Neg) U Amphetamin/Meth Scrn (Neg) MDMA (Ecstasy) Screen (Neg) U Benzodiazepines Scrn (Neg) Ur Cocaine Metabolite (Neg) U Marijuana (THC) Screen (Neg) SARS-CoV-2 (PCR) (Negative) Influenza Type A (PCR) (Neg) Influenza Type B (PCR) (Neg) RSV (RT-PCR) (Neg) Blood Type Antibody Screen 09/29/22 09/29/22 09/29/22 Range/Units 05:50 05:38 05:38 WBC (4.8-10.8) K/ul RBC (4.63-6.08) M/uL Hgb (14.0-18.0) g/dl Hct (40.1-51.0) % MCV (80.0-100.0) fL MCH (25.0-34.0) pg MCHC (32.0-36.0) g/dL RDW Std Deviation (36.4-46.3) fL RDW Coeff of Denise (11.5-14.5) % Plt Count (130-400) K/uL MPV (9.4-12.4) fL Immature Gran % (Auto) % Neut % (Auto) % Lymph % (Auto) % [place] % (Auto) % Eos % (Auto) % Baso % (Auto) % Neut # (Auto) (1.4-6.5) K/uL Lymph # (Auto) (1.2-3.4) K/uL [place] # (Auto) (0.24-0.82) K/uL Eos # (Auto) (0-0.50) K/uL Baso # (Auto) (0-0.2) K/uL Immature Gran # (Auto) (0.00-0.02) K/uL Absolute Nucleated RBC Nucleated RBC % (auto) Platelet Estimate Polychromasia Ovalocytes PT (9.0-12.0) Seconds INR (0.9-1.1) APTT (21.0-31.0) Seconds PTT Ratio ABG pH (7.35-7.45) ABG pCO2 (35-46) mmHg ABG pO2 (80-95) mmHg ABG HCO3 (19-24) mmol/L ABG O2 Saturation (90-95) % ABG Base Excess (-9-1.8) mEq/L Fred Test (Pos) VBG pH (7.36-7.41) VBG pCO2 (38-50) mmHg VBG pO2 mmHg VBG HCO3 mmol/L VBG O2 Saturation % VBG Base Excess mEq/L Oxygen Given Sodium 143 (136-145) mmol/L Potassium 3.3 L (3.5-5.1) mmol/L Chloride 111 H (98-107) mmol/L Carbon Dioxide 22 (21-32) mmol/L Anion Gap 10 (3-11) BUN 36 H (6-23) mg/dl Creatinine 1.30 D (0.6-1.4) mg/dl Est Cr Clr Drug Dosing 56.4 ml/min Est GFR ( Amer) 68.3 ml/min Est GFR (Non-Af Amer) 58.9 ml/min BUN/Creatinine Ratio 27.7 H (10-20) Glucose 163 H (70-99(Fasting)) mg/dl POC Glucose (70-99) mg/dl Estimat Average Glucose mg/dl Hemoglobin A1c (4.5-5.6) % Lactate 1.5 (0.4-2.0) mmol/L Calcium 7.9 L (8.5-10.1) mg/dl Phosphorus 1.7 L (2.5-4.9) mg/dl Magnesium 2.1 (1.7-2.4) mg/dl Total Bilirubin (0.2-1.0) mg/dl Direct Bilirubin (0-0.2) mg/dl AST (13-39) U/L ALT (7-52) U/L Alkaline Phosphatase (34-104) U/L Troponin I High Sens 69827.8 H* D (0-20) pg/ml Total Protein (6.0-8.3) gm/dl Albumin (3.4-5.0) gm/dl Procalcitonin (0-0.5) ng/ml Urine Color Urine Appearance (Clear) Urine pH (4.5-7.5) Ur Specific [place] (1.000-1.030) Urine Protein (Negative) Urine Glucose (UA) (Negative) Urine Ketones (Negative) Urine Blood (Negative) Urine Nitrite (Negative) Urine Bilirubin (Negative) Urine Urobilinogen (Negative) Ur Leukocyte Esterase (Negative) Nasal Screen MRSA (PCR) (Negative) Urine Opiates Screen (Neg) Ur Methadone, Qual (Neg) Urine Barbiturates (Neg) Ur Phencyclidine (PCP) (Neg) U Amphetamin/Meth Scrn (Neg) MDMA (Ecstasy) Screen (Neg) U Benzodiazepines Scrn (Neg) Ur Cocaine Metabolite (Neg) U Marijuana (THC) Screen (Neg) SARS-CoV-2 (PCR) (Negative) Influenza Type A (PCR) (Neg) Influenza Type B (PCR) (Neg) RSV (RT-PCR) (Neg) Blood Type Antibody Screen 09/29/22 09/29/22 09/29/22 Range/Units 05:04 04:11 02:09 WBC (4.8-10.8) K/ul RBC (4.63-6.08) M/uL Hgb (14.0-18.0) g/dl Hct (40.1-51.0) % MCV (80.0-100.0) fL MCH (25.0-34.0) pg MCHC (32.0-36.0) g/dL RDW Std Deviation (36.4-46.3) fL RDW Coeff of Denise (11.5-14.5) % Plt Count (130-400) K/uL MPV (9.4-12.4) fL Immature Gran % (Auto) % Neut % (Auto) % Lymph % (Auto) % [place] % (Auto) % Eos % (Auto) % Baso % (Auto) % Neut # (Auto) (1.4-6.5) K/uL Lymph # (Auto) (1.2-3.4) K/uL [place] # (Auto) (0.24-0.82) K/uL Eos # (Auto) (0-0.50) K/uL Baso # (Auto) (0-0.2) K/uL Immature Gran # (Auto) (0.00-0.02) K/uL Absolute Nucleated RBC Nucleated RBC % (auto) Platelet Estimate Polychromasia Ovalocytes PT (9.0-12.0) Seconds INR (0.9-1.1) APTT (21.0-31.0) Seconds PTT Ratio ABG pH (7.35-7.45) ABG pCO2 (35-46) mmHg ABG pO2 (80-95) mmHg ABG HCO3 (19-24) mmol/L ABG O2 Saturation (90-95) % ABG Base Excess (-9-1.8) mEq/L Fred Test (Pos) VBG pH (7.36-7.41) VBG pCO2 (38-50) mmHg VBG pO2 mmHg VBG HCO3 mmol/L VBG O2 Saturation % VBG Base Excess mEq/L Oxygen Given Sodium 142 (136-145) mmol/L Potassium 3.4 L (3.5-5.1) mmol/L Chloride 106 (98-107) mmol/L Carbon Dioxide 14 L (21-32) mmol/L Anion Gap 22 H (3-11) BUN 40 H (6-23) mg/dl Creatinine 1.62 H (0.6-1.4) mg/dl Est Cr Clr Drug Dosing 45.2 ml/min Est GFR ( Amer) 52.3 ml/min Est GFR (Non-Af Amer) 45.1 ml/min BUN/Creatinine Ratio 24.7 H (10-20) Glucose 449 H* (70-99(Fasting)) mg/dl POC Glucose 267 H 369 H* (70-99) mg/dl Estimat Average Glucose mg/dl Hemoglobin A1c (4.5-5.6) % Lactate (0.4-2.0) mmol/L Calcium 8.4 L (8.5-10.1) mg/dl Phosphorus 1.4 L* D (2.5-4.9) mg/dl Magnesium 2.3 (1.7-2.4) mg/dl Total Bilirubin (0.2-1.0) mg/dl Direct Bilirubin (0-0.2) mg/dl AST (13-39) U/L ALT (7-52) U/L Alkaline Phosphatase (34-104) U/L Troponin I High Sens (0-20) pg/ml Total Protein (6.0-8.3) gm/dl Albumin (3.4-5.0) gm/dl Procalcitonin (0-0.5) ng/ml Urine Color Urine Appearance (Clear) Urine pH (4.5-7.5) Ur Specific [place] (1.000-1.030) Urine Protein (Negative) Urine Glucose (UA) (Negative) Urine Ketones (Negative) Urine Blood (Negative) Urine Nitrite (Negative) Urine Bilirubin (Negative) Urine Urobilinogen (Negative) Ur Leukocyte Esterase (Negative) Nasal Screen MRSA (PCR) (Negative) Urine Opiates Screen (Neg) Ur Methadone, Qual (Neg) Urine Barbiturates (Neg) Ur Phencyclidine (PCP) (Neg) U Amphetamin/Meth Scrn (Neg) MDMA (Ecstasy) Screen (Neg) U Benzodiazepines Scrn (Neg) Ur Cocaine Metabolite (Neg) U Marijuana (THC) Screen (Neg) SARS-CoV-2 (PCR) (Negative) Influenza Type A (PCR) (Neg) Influenza Type B (PCR) (Neg) RSV (RT-PCR) (Neg) Blood Type Antibody Screen 09/29/22 09/29/22 09/29/22 Range/Units 01:53 00:46 00:46 WBC 21.00 H (4.8-10.8) K/ul RBC 2.38 L (4.63-6.08) M/uL Hgb 7.6 L (14.0-18.0) g/dl Hct 21.2 L (40.1-51.0) % MCV 89.1 D (80.0-100.0) fL MCH 31.9 (25.0-34.0) pg MCHC 35.8 (32.0-36.0) g/dL RDW Std Deviation 38.8 (36.4-46.3) fL RDW Coeff of Denise 12.0 (11.5-14.5) % Plt Count 271 (130-400) K/uL MPV 9.4 (9.4-12.4) fL Immature Gran % (Auto) % Neut % (Auto) % Lymph % (Auto) % [place] % (Auto) % Eos % (Auto) % Baso % (Auto) % Neut # (Auto) (1.4-6.5) K/uL Lymph # (Auto) (1.2-3.4) K/uL [place] # (Auto) (0.24-0.82) K/uL Eos # (Auto) (0-0.50) K/uL Baso # (Auto) (0-0.2) K/uL Immature Gran # (Auto) (0.00-0.02) K/uL Absolute Nucleated RBC Nucleated RBC % (auto) Platelet Estimate Polychromasia Ovalocytes PT (9.0-12.0) Seconds INR (0.9-1.1) APTT (21.0-31.0) Seconds PTT Ratio ABG pH (7.35-7.45) ABG pCO2 (35-46) mmHg ABG pO2 (80-95) mmHg ABG HCO3 (19-24) mmol/L ABG O2 Saturation (90-95) % ABG Base Excess (-9-1.8) mEq/L Fred Test (Pos) VBG pH (7.36-7.41) VBG pCO2 (38-50) mmHg VBG pO2 mmHg VBG HCO3 mmol/L VBG O2 Saturation % VBG Base Excess mEq/L Oxygen Given Sodium (136-145) mmol/L Potassium (3.5-5.1) mmol/L Chloride (98-107) mmol/L Carbon Dioxide (21-32) mmol/L Anion Gap (3-11) BUN (6-23) mg/dl Creatinine (0.6-1.4) mg/dl Est Cr Clr Drug Dosing ml/min Est GFR ( Amer) ml/min Est GFR (Non-Af Amer) ml/min BUN/Creatinine Ratio (10-20) Glucose 529 H* (70-99(Fasting)) mg/dl POC Glucose 533 H* (70-99) mg/dl Estimat Average Glucose mg/dl Hemoglobin A1c (4.5-5.6) % Lactate (0.4-2.0) mmol/L Calcium (8.5-10.1) mg/dl Phosphorus (2.5-4.9) mg/dl Magnesium (1.7-2.4) mg/dl Total Bilirubin (0.2-1.0) mg/dl Direct Bilirubin (0-0.2) mg/dl AST (13-39) U/L ALT (7-52) U/L Alkaline Phosphatase (34-104) U/L Troponin I High Sens (0-20) pg/ml Total Protein (6.0-8.3) gm/dl Albumin (3.4-5.0) gm/dl Procalcitonin (0-0.5) ng/ml Urine Color Urine Appearance (Clear) Urine pH (4.5-7.5) Ur Specific [place] (1.000-1.030) Urine Protein (Negative) Urine Glucose (UA) (Negative) Urine Ketones (Negative) Urine Blood (Negative) Urine Nitrite (Negative) Urine Bilirubin (Negative) Urine Urobilinogen (Negative) Ur Leukocyte Esterase (Negative) Nasal Screen MRSA (PCR) (Negative) Urine Opiates Screen (Neg) Ur Methadone, Qual (Neg) Urine Barbiturates (Neg) Ur Phencyclidine (PCP) (Neg) U Amphetamin/Meth Scrn (Neg) MDMA (Ecstasy) Screen (Neg) U Benzodiazepines Scrn (Neg) Ur Cocaine Metabolite (Neg) U Marijuana (THC) Screen (Neg) SARS-CoV-2 (PCR) (Negative) Influenza Type A (PCR) (Neg) Influenza Type B (PCR) (Neg) RSV (RT-PCR) (Neg) Blood Type Antibody Screen 09/28/22 09/28/22 09/28/22 Range/Units Unknown 23:39 23:33 WBC Cancelled (4.8-10.8) K/ul RBC Cancelled (4.63-6.08) M/uL Hgb Cancelled (14.0-18.0) g/dl Hct Cancelled (40.1-51.0) % MCV Cancelled (80.0-100.0) fL MCH Cancelled (25.0-34.0) pg MCHC Cancelled (32.0-36.0) g/dL RDW Std Deviation Cancelled (36.4-46.3) fL RDW Coeff of Denise Cancelled (11.5-14.5) % Plt Count Cancelled (130-400) K/uL MPV Cancelled (9.4-12.4) fL Immature Gran % (Auto) % Neut % (Auto) % Lymph % (Auto) % [place] % (Auto) % Eos % (Auto) % Baso % (Auto) % Neut # (Auto) (1.4-6.5) K/uL Lymph # (Auto) (1.2-3.4) K/uL [place] # (Auto) (0.24-0.82) K/uL Eos # (Auto) (0-0.50) K/uL Baso # (Auto) (0-0.2) K/uL Immature Gran # (Auto) (0.00-0.02) K/uL Absolute Nucleated RBC Cancelled Nucleated RBC % (auto) Cancelled Platelet Estimate Cancelled Polychromasia Ovalocytes PT (9.0-12.0) Seconds INR (0.9-1.1) APTT (21.0-31.0) Seconds PTT Ratio ABG pH (7.35-7.45) ABG pCO2 (35-46) mmHg ABG pO2 (80-95) mmHg ABG HCO3 (19-24) mmol/L ABG O2 Saturation (90-95) % ABG Base Excess (-9-1.8) mEq/L Fred Test (Pos) VBG pH (7.36-7.41) VBG pCO2 (38-50) mmHg VBG pO2 mmHg VBG HCO3 mmol/L VBG O2 Saturation % VBG Base Excess mEq/L Oxygen Given Sodium (136-145) mmol/L Potassium (3.5-5.1) mmol/L Chloride (98-107) mmol/L Carbon Dioxide (21-32) mmol/L Anion Gap (3-11) BUN (6-23) mg/dl Creatinine (0.6-1.4) mg/dl Est Cr Clr Drug Dosing ml/min Est GFR ( Amer) ml/min Est GFR (Non-Af Amer) ml/min BUN/Creatinine Ratio (10-20) Glucose (70-99(Fasting)) mg/dl POC Glucose (70-99) mg/dl Estimat Average Glucose mg/dl Hemoglobin A1c (4.5-5.6) % Lactate 2.3 H* (0.4-2.0) mmol/L Calcium (8.5-10.1) mg/dl Phosphorus (2.5-4.9) mg/dl Magnesium (1.7-2.4) mg/dl Total Bilirubin (0.2-1.0) mg/dl Direct Bilirubin (0-0.2) mg/dl AST (13-39) U/L ALT (7-52) U/L Alkaline Phosphatase (34-104) U/L Troponin I High Sens (0-20) pg/ml Total Protein (6.0-8.3) gm/dl Albumin (3.4-5.0) gm/dl Procalcitonin (0-0.5) ng/ml Urine Color Urine Appearance (Clear) Urine pH (4.5-7.5) Ur Specific [place] (1.000-1.030) Urine Protein (Negative) Urine Glucose (UA) (Negative) Urine Ketones (Negative) Urine Blood (Negative) Urine Nitrite (Negative) Urine Bilirubin (Negative) Urine Urobilinogen (Negative) Ur Leukocyte Esterase (Negative) Nasal Screen MRSA (PCR) (Negative) Urine Opiates Screen (Neg) Ur Methadone, Qual (Neg) Urine Barbiturates (Neg) Ur Phencyclidine (PCP) (Neg) U Amphetamin/Meth Scrn (Neg) MDMA (Ecstasy) Screen (Neg) U Benzodiazepines Scrn (Neg) Ur Cocaine Metabolite (Neg) U Marijuana (THC) Screen (Neg) SARS-CoV-2 (PCR) NEGATIVE (Negative) Influenza Type A (PCR) Negative (Neg) Influenza Type B (PCR) Negative (Neg) RSV (RT-PCR) Negative (Neg) Blood Type Antibody Screen 09/28/22 09/28/22 09/28/22 Range/Units 23:33 22:44 21:44 WBC (4.8-10.8) K/ul RBC (4.63-6.08) M/uL Hgb (14.0-18.0) g/dl Hct (40.1-51.0) % MCV (80.0-100.0) fL MCH (25.0-34.0) pg MCHC (32.0-36.0) g/dL RDW Std Deviation (36.4-46.3) fL RDW Coeff of Denise (11.5-14.5) % Plt Count (130-400) K/uL MPV (9.4-12.4) fL Immature Gran % (Auto) % Neut % (Auto) % Lymph % (Auto) % [place] % (Auto) % Eos % (Auto) % Baso % (Auto) % Neut # (Auto) (1.4-6.5) K/uL Lymph # (Auto) (1.2-3.4) K/uL [place] # (Auto) (0.24-0.82) K/uL Eos # (Auto) (0-0.50) K/uL Baso # (Auto) (0-0.2) K/uL Immature Gran # (Auto) (0.00-0.02) K/uL Absolute Nucleated RBC Nucleated RBC % (auto) Platelet Estimate Polychromasia Ovalocytes PT (9.0-12.0) Seconds INR (0.9-1.1) APTT (21.0-31.0) Seconds PTT Ratio ABG pH (7.35-7.45) ABG pCO2 (35-46) mmHg ABG pO2 (80-95) mmHg ABG HCO3 (19-24) mmol/L ABG O2 Saturation (90-95) % ABG Base Excess (-9-1.8) mEq/L Fred Test (Pos) VBG pH (7.36-7.41) VBG pCO2 (38-50) mmHg VBG pO2 mmHg VBG HCO3 mmol/L VBG O2 Saturation % VBG Base Excess mEq/L Oxygen Given Sodium (136-145) mmol/L Potassium (3.5-5.1) mmol/L Chloride (98-107) mmol/L Carbon Dioxide (21-32) mmol/L Anion Gap (3-11) BUN (6-23) mg/dl Creatinine 1.64 H (0.6-1.4) mg/dl Est Cr Clr Drug Dosing 44.7 ml/min Est GFR ( Amer) 51.5 ml/min Est GFR (Non-Af Amer) 44.5 ml/min BUN/Creatinine Ratio (10-20) Glucose 606 H* 687 H* (70-99(Fasting)) mg/dl POC Glucose (70-99) mg/dl Estimat Average Glucose mg/dl Hemoglobin A1c (4.5-5.6) % Lactate 2.2 H* (0.4-2.0) mmol/L Calcium (8.5-10.1) mg/dl Phosphorus (2.5-4.9) mg/dl Magnesium (1.7-2.4) mg/dl Total Bilirubin (0.2-1.0) mg/dl Direct Bilirubin (0-0.2) mg/dl AST (13-39) U/L ALT (7-52) U/L Alkaline Phosphatase (34-104) U/L Troponin I High Sens (0-20) pg/ml Total Protein (6.0-8.3) gm/dl Albumin (3.4-5.0) gm/dl Procalcitonin (0-0.5) ng/ml Urine Color Urine Appearance (Clear) Urine pH (4.5-7.5) Ur Specific [place] (1.000-1.030) Urine Protein (Negative) Urine Glucose (UA) (Negative) Urine Ketones (Negative) Urine Blood (Negative) Urine Nitrite (Negative) Urine Bilirubin (Negative) Urine Urobilinogen (Negative) Ur Leukocyte Esterase (Negative) Nasal Screen MRSA (PCR) (Negative) Urine Opiates Screen (Neg) Ur Methadone, Qual (Neg) Urine Barbiturates (Neg) Ur Phencyclidine (PCP) (Neg) U Amphetamin/Meth Scrn (Neg) MDMA (Ecstasy) Screen (Neg) U Benzodiazepines Scrn (Neg) Ur Cocaine Metabolite (Neg) U Marijuana (THC) Screen (Neg) SARS-CoV-2 (PCR) (Negative) Influenza Type A (PCR) (Neg) Influenza Type B (PCR) (Neg) RSV (RT-PCR) (Neg) Blood Type Antibody Screen 09/28/22 09/28/22 09/28/22 Range/Units 21:44 21:44 21:44 WBC (4.8-10.8) K/ul RBC (4.63-6.08) M/uL Hgb (14.0-18.0) g/dl Hct (40.1-51.0) % MCV (80.0-100.0) fL MCH (25.0-34.0) pg MCHC (32.0-36.0) g/dL RDW Std Deviation (36.4-46.3) fL RDW Coeff of Denise (11.5-14.5) % Plt Count (130-400) K/uL MPV (9.4-12.4) fL Immature Gran % (Auto) % Neut % (Auto) % Lymph % (Auto) % [place] % (Auto) % Eos % (Auto) % Baso % (Auto) % Neut # (Auto) (1.4-6.5) K/uL Lymph # (Auto) (1.2-3.4) K/uL [place] # (Auto) (0.24-0.82) K/uL Eos # (Auto) (0-0.50) K/uL Baso # (Auto) (0-0.2) K/uL Immature Gran # (Auto) (0.00-0.02) K/uL Absolute Nucleated RBC Nucleated RBC % (auto) Platelet Estimate Polychromasia Ovalocytes PT (9.0-12.0) Seconds INR (0.9-1.1) APTT (21.0-31.0) Seconds PTT Ratio ABG pH (7.35-7.45) ABG pCO2 (35-46) mmHg ABG pO2 (80-95) mmHg ABG HCO3 (19-24) mmol/L ABG O2 Saturation (90-95) % ABG Base Excess (-9-1.8) mEq/L Fred Test (Pos) VBG pH (7.36-7.41) VBG pCO2 (38-50) mmHg VBG pO2 mmHg VBG HCO3 mmol/L VBG O2 Saturation % VBG Base Excess mEq/L Oxygen Given Sodium 137 (136-145) mmol/L Potassium 3.6 D (3.5-5.1) mmol/L Chloride 100 (98-107) mmol/L Carbon Dioxide 5 L* (21-32) mmol/L Anion Gap 32 H (3-11) BUN 44 H (6-23) mg/dl Creatinine 1.68 H (0.6-1.4) mg/dl Est Cr Clr Drug Dosing 43.6 ml/min Est GFR ( Amer) 50.1 ml/min Est GFR (Non-Af Amer) 43.2 ml/min BUN/Creatinine Ratio 26.2 H (10-20) Glucose 794 H* (70-99(Fasting)) mg/dl POC Glucose (70-99) mg/dl Estimat Average Glucose 232 mg/dl Hemoglobin A1c 9.7 H (4.5-5.6) % Lactate (0.4-2.0) mmol/L Calcium 7.6 L (8.5-10.1) mg/dl Phosphorus 3.6 (2.5-4.9) mg/dl Magnesium 2.4 (1.7-2.4) mg/dl Total Bilirubin (0.2-1.0) mg/dl Direct Bilirubin (0-0.2) mg/dl AST (13-39) U/L ALT (7-52) U/L Alkaline Phosphatase (34-104) U/L Troponin I High Sens 1521.1 H* D (0-20) pg/ml Total Protein (6.0-8.3) gm/dl Albumin (3.4-5.0) gm/dl Procalcitonin (0-0.5) ng/ml Urine Color Urine Appearance (Clear) Urine pH (4.5-7.5) Ur Specific [place] (1.000-1.030) Urine Protein (Negative) Urine Glucose (UA) (Negative) Urine Ketones (Negative) Urine Blood (Negative) Urine Nitrite (Negative) Urine Bilirubin (Negative) Urine Urobilinogen (Negative) Ur Leukocyte Esterase (Negative) Nasal Screen MRSA (PCR) (Negative) Urine Opiates Screen (Neg) Ur Methadone, Qual (Neg) Urine Barbiturates (Neg) Ur Phencyclidine (PCP) (Neg) U Amphetamin/Meth Scrn (Neg) MDMA (Ecstasy) Screen (Neg) U Benzodiazepines Scrn (Neg) Ur Cocaine Metabolite (Neg) U Marijuana (THC) Screen (Neg) SARS-CoV-2 (PCR) (Negative) Influenza Type A (PCR) (Neg) Influenza Type B (PCR) (Neg) RSV (RT-PCR) (Neg) Blood Type Antibody Screen 09/28/22 09/28/22 09/28/22 Range/Units 21:44 21:18 21:15 WBC (4.8-10.8) K/ul RBC (4.63-6.08) M/uL Hgb (14.0-18.0) g/dl Hct (40.1-51.0) % MCV (80.0-100.0) fL MCH (25.0-34.0) pg MCHC (32.0-36.0) g/dL RDW Std Deviation (36.4-46.3) fL RDW Coeff of Denise (11.5-14.5) % Plt Count (130-400) K/uL MPV (9.4-12.4) fL Immature Gran % (Auto) % Neut % (Auto) % Lymph % (Auto) % [place] % (Auto) % Eos % (Auto) % Baso % (Auto) % Neut # (Auto) (1.4-6.5) K/uL Lymph # (Auto) (1.2-3.4) K/uL [place] # (Auto) (0.24-0.82) K/uL Eos # (Auto) (0-0.50) K/uL Baso # (Auto) (0-0.2) K/uL Immature Gran # (Auto) (0.00-0.02) K/uL Absolute Nucleated RBC Nucleated RBC % (auto) Platelet Estimate Polychromasia Ovalocytes PT (9.0-12.0) Seconds INR (0.9-1.1) APTT (21.0-31.0) Seconds PTT Ratio ABG pH 7.22 L (7.35-7.45) ABG pCO2 14 L (35-46) mmHg ABG pO2 113 H (80-95) mmHg ABG HCO3 6 L (19-24) mmol/L ABG O2 Saturation > 100.0 H (90-95) % ABG Base Excess -20.0 L (-9-1.8) mEq/L Fred Test Pos (Pos) VBG pH (7.36-7.41) VBG pCO2 (38-50) mmHg VBG pO2 mmHg VBG HCO3 mmol/L VBG O2 Saturation % VBG Base Excess mEq/L Oxygen Given ROOM AIR Sodium (136-145) mmol/L Potassium (3.5-5.1) mmol/L Chloride (98-107) mmol/L Carbon Dioxide (21-32) mmol/L Anion Gap (3-11) BUN (6-23) mg/dl Creatinine (0.6-1.4) mg/dl Est Cr Clr Drug Dosing ml/min Est GFR ( Amer) ml/min Est GFR (Non-Af Amer) ml/min BUN/Creatinine Ratio (10-20) Glucose (70-99(Fasting)) mg/dl POC Glucose > 600 H* (70-99) mg/dl Estimat Average Glucose mg/dl Hemoglobin A1c (4.5-5.6) % Lactate (0.4-2.0) mmol/L Calcium (8.5-10.1) mg/dl Phosphorus (2.5-4.9) mg/dl Magnesium (1.7-2.4) mg/dl Total Bilirubin (0.2-1.0) mg/dl Direct Bilirubin (0-0.2) mg/dl AST (13-39) U/L ALT (7-52) U/L Alkaline Phosphatase (34-104) U/L Troponin I High Sens (0-20) pg/ml Total Protein (6.0-8.3) gm/dl Albumin (3.4-5.0) gm/dl Procalcitonin (0-0.5) ng/ml Urine Color Urine Appearance (Clear) Urine pH (4.5-7.5) Ur Specific [place] (1.000-1.030) Urine Protein (Negative) Urine Glucose (UA) (Negative) Urine Ketones (Negative) Urine Blood (Negative) Urine Nitrite (Negative) Urine Bilirubin (Negative) Urine Urobilinogen (Negative) Ur Leukocyte Esterase (Negative) Nasal Screen MRSA (PCR) Negative (Negative) Urine Opiates Screen (Neg) Ur Methadone, Qual (Neg) Urine Barbiturates (Neg) Ur Phencyclidine (PCP) (Neg) U Amphetamin/Meth Scrn (Neg) MDMA (Ecstasy) Screen (Neg) U Benzodiazepines Scrn (Neg) Ur Cocaine Metabolite (Neg) U Marijuana (THC) Screen (Neg) SARS-CoV-2 (PCR) (Negative) Influenza Type A (PCR) (Neg) Influenza Type B (PCR) (Neg) RSV (RT-PCR) (Neg) Blood Type Antibody Screen 09/28/22 09/28/22 09/28/22 Range/Units 20:35 19:36 19:22 WBC (4.8-10.8) K/ul RBC (4.63-6.08) M/uL Hgb (14.0-18.0) g/dl Hct (40.1-51.0) % MCV (80.0-100.0) fL MCH (25.0-34.0) pg MCHC (32.0-36.0) g/dL RDW Std Deviation (36.4-46.3) fL RDW Coeff of Denise (11.5-14.5) % Plt Count (130-400) K/uL MPV (9.4-12.4) fL Immature Gran % (Auto) % Neut % (Auto) % Lymph % (Auto) % [place] % (Auto) % Eos % (Auto) % Baso % (Auto) % Neut # (Auto) (1.4-6.5) K/uL Lymph # (Auto) (1.2-3.4) K/uL [place] # (Auto) (0.24-0.82) K/uL Eos # (Auto) (0-0.50) K/uL Baso # (Auto) (0-0.2) K/uL Immature Gran # (Auto) (0.00-0.02) K/uL Absolute Nucleated RBC Nucleated RBC % (auto) Platelet Estimate Polychromasia Ovalocytes PT (9.0-12.0) Seconds INR (0.9-1.1) APTT (21.0-31.0) Seconds PTT Ratio ABG pH (7.35-7.45) ABG pCO2 (35-46) mmHg ABG pO2 (80-95) mmHg ABG HCO3 (19-24) mmol/L ABG O2 Saturation (90-95) % ABG Base Excess (-9-1.8) mEq/L Fred Test (Pos) VBG pH (7.36-7.41) VBG pCO2 (38-50) mmHg VBG pO2 mmHg VBG HCO3 mmol/L VBG O2 Saturation % VBG Base Excess mEq/L Oxygen Given Sodium 133 L (136-145) mmol/L Potassium 5.0 (3.5-5.1) mmol/L Chloride 93 L (98-107) mmol/L Carbon Dioxide 5 L* (21-32) mmol/L Anion Gap 35 H (3-11) BUN 45 H (6-23) mg/dl Creatinine 1.83 H (0.6-1.4) mg/dl Est Cr Clr Drug Dosing 38.7 ml/min Est GFR ( Amer) 45.1 ml/min Est GFR (Non-Af Amer) 38.9 ml/min BUN/Creatinine Ratio 24.6 H (10-20) Glucose 952 H* (70-99(Fasting)) mg/dl POC Glucose > 600 H* (70-99) mg/dl Estimat Average Glucose mg/dl Hemoglobin A1c (4.5-5.6) % Lactate (0.4-2.0) mmol/L Calcium 8.1 L (8.5-10.1) mg/dl Phosphorus (2.5-4.9) mg/dl Magnesium (1.7-2.4) mg/dl Total Bilirubin (0.2-1.0) mg/dl Direct Bilirubin (0-0.2) mg/dl AST (13-39) U/L ALT (7-52) U/L Alkaline Phosphatase (34-104) U/L Troponin I High Sens (0-20) pg/ml Total Protein (6.0-8.3) gm/dl Albumin (3.4-5.0) gm/dl Procalcitonin (0-0.5) ng/ml Urine Color Urine Appearance (Clear) Urine pH (4.5-7.5) Ur Specific [place] (1.000-1.030) Urine Protein (Negative) Urine Glucose (UA) (Negative) Urine Ketones (Negative) Urine Blood (Negative) Urine Nitrite (Negative) Urine Bilirubin (Negative) Urine Urobilinogen (Negative) Ur Leukocyte Esterase (Negative) Nasal Screen MRSA (PCR) (Negative) Urine Opiates Screen Neg (Neg) Ur Methadone, Qual Neg (Neg) Urine Barbiturates Neg (Neg) Ur Phencyclidine (PCP) Neg (Neg) U Amphetamin/Meth Scrn Neg (Neg) MDMA (Ecstasy) Screen Neg (Neg) U Benzodiazepines Scrn Neg (Neg) Ur Cocaine Metabolite Neg (Neg) U Marijuana (THC) Screen Neg (Neg) SARS-CoV-2 (PCR) (Negative) Influenza Type A (PCR) (Neg) Influenza Type B (PCR) (Neg) RSV (RT-PCR) (Neg) Blood Type Antibody Screen 09/28/22 09/28/22 09/28/22 Range/Units 17:40 16:19 15:49 WBC (4.8-10.8) K/ul RBC (4.63-6.08) M/uL Hgb (14.0-18.0) g/dl Hct (40.1-51.0) % MCV (80.0-100.0) fL MCH (25.0-34.0) pg MCHC (32.0-36.0) g/dL RDW Std Deviation (36.4-46.3) fL RDW Coeff of Denise (11.5-14.5) % Plt Count (130-400) K/uL MPV (9.4-12.4) fL Immature Gran % (Auto) % Neut % (Auto) % Lymph % (Auto) % [place] % (Auto) % Eos % (Auto) % Baso % (Auto) % Neut # (Auto) (1.4-6.5) K/uL Lymph # (Auto) (1.2-3.4) K/uL [place] # (Auto) (0.24-0.82) K/uL Eos # (Auto) (0-0.50) K/uL Baso # (Auto) (0-0.2) K/uL Immature Gran # (Auto) (0.00-0.02) K/uL Absolute Nucleated RBC Nucleated RBC % (auto) Platelet Estimate Polychromasia Ovalocytes PT (9.0-12.0) Seconds INR (0.9-1.1) APTT (21.0-31.0) Seconds PTT Ratio ABG pH (7.35-7.45) ABG pCO2 (35-46) mmHg ABG pO2 (80-95) mmHg ABG HCO3 (19-24) mmol/L ABG O2 Saturation (90-95) % ABG Base Excess (-9-1.8) mEq/L Fred Test (Pos) VBG pH 7.07 L (7.36-7.41) VBG pCO2 16 L (38-50) mmHg VBG pO2 54 mmHg VBG HCO3 5 mmol/L VBG O2 Saturation 77.3 % VBG Base Excess -23.6 mEq/L Oxygen Given Sodium (136-145) mmol/L Potassium (3.5-5.1) mmol/L Chloride (98-107) mmol/L Carbon Dioxide (21-32) mmol/L Anion Gap (3-11) BUN (6-23) mg/dl Creatinine (0.6-1.4) mg/dl Est Cr Clr Drug Dosing ml/min Est GFR ( Amer) ml/min Est GFR (Non-Af Amer) ml/min BUN/Creatinine Ratio (10-20) Glucose (70-99(Fasting)) mg/dl POC Glucose (70-99) mg/dl Estimat Average Glucose mg/dl Hemoglobin A1c (4.5-5.6) % Lactate 6.4 H* (0.4-2.0) mmol/L Calcium (8.5-10.1) mg/dl Phosphorus (2.5-4.9) mg/dl Magnesium (1.7-2.4) mg/dl Total Bilirubin (0.2-1.0) mg/dl Direct Bilirubin (0-0.2) mg/dl AST (13-39) U/L ALT (7-52) U/L Alkaline Phosphatase (34-104) U/L Troponin I High Sens (0-20) pg/ml Total Protein (6.0-8.3) gm/dl Albumin (3.4-5.0) gm/dl Procalcitonin (0-0.5) ng/ml Urine Color Yellow Urine Appearance Clear (Clear) Urine pH 5.0 (4.5-7.5) Ur Specific [place] 1.023 (1.000-1.030) Urine Protein Negative (Negative) Urine Glucose (UA) 3+ H (Negative) Urine Ketones 3+ H (Negative) Urine Blood Negative (Negative) Urine Nitrite Negative (Negative) Urine Bilirubin Negative (Negative) Urine Urobilinogen Negative (Negative) Ur Leukocyte Esterase Negative (Negative) Nasal Screen MRSA (PCR) (Negative) Urine Opiates Screen (Neg) Ur Methadone, Qual (Neg) Urine Barbiturates (Neg) Ur Phencyclidine (PCP) (Neg) U Amphetamin/Meth Scrn (Neg) MDMA (Ecstasy) Screen (Neg) U Benzodiazepines Scrn (Neg) Ur Cocaine Metabolite (Neg) U Marijuana (THC) Screen (Neg) SARS-CoV-2 (PCR) (Negative) Influenza Type A (PCR) (Neg) Influenza Type B (PCR) (Neg) RSV (RT-PCR) (Neg) Blood Type Antibody Screen 09/28/22 09/28/22 09/28/22 Range/Units 15:49 15:49 15:30 WBC (4.8-10.8) K/ul RBC (4.63-6.08) M/uL Hgb (14.0-18.0) g/dl Hct (40.1-51.0) % MCV (80.0-100.0) fL MCH (25.0-34.0) pg MCHC (32.0-36.0) g/dL RDW Std Deviation (36.4-46.3) fL RDW Coeff of Denise (11.5-14.5) % Plt Count (130-400) K/uL MPV (9.4-12.4) fL Immature Gran % (Auto) % Neut % (Auto) % Lymph % (Auto) % [place] % (Auto) % Eos % (Auto) % Baso % (Auto) % Neut # (Auto) (1.4-6.5) K/uL Lymph # (Auto) (1.2-3.4) K/uL [place] # (Auto) (0.24-0.82) K/uL Eos # (Auto) (0-0.50) K/uL Baso # (Auto) (0-0.2) K/uL Immature Gran # (Auto) (0.00-0.02) K/uL Absolute Nucleated RBC Nucleated RBC % (auto) Platelet Estimate Polychromasia Ovalocytes PT (9.0-12.0) Seconds INR (0.9-1.1) APTT (21.0-31.0) Seconds PTT Ratio ABG pH (7.35-7.45) ABG pCO2 (35-46) mmHg ABG pO2 (80-95) mmHg ABG HCO3 (19-24) mmol/L ABG O2 Saturation (90-95) % ABG Base Excess (-9-1.8) mEq/L Fred Test (Pos) VBG pH (7.36-7.41) VBG pCO2 (38-50) mmHg VBG pO2 mmHg VBG HCO3 mmol/L VBG O2 Saturation % VBG Base Excess mEq/L Oxygen Given Sodium (136-145) mmol/L Potassium (3.5-5.1) mmol/L Chloride (98-107) mmol/L Carbon Dioxide (21-32) mmol/L Anion Gap (3-11) BUN (6-23) mg/dl Creatinine (0.6-1.4) mg/dl Est Cr Clr Drug Dosing ml/min Est GFR ( Amer) ml/min Est GFR (Non-Af Amer) ml/min BUN/Creatinine Ratio (10-20) Glucose (70-99(Fasting)) mg/dl POC Glucose > 600 H* (70-99) mg/dl Estimat Average Glucose mg/dl Hemoglobin A1c (4.5-5.6) % Lactate 6.0 H* (0.4-2.0) mmol/L Calcium (8.5-10.1) mg/dl Phosphorus (2.5-4.9) mg/dl Magnesium (1.7-2.4) mg/dl Total Bilirubin (0.2-1.0) mg/dl Direct Bilirubin (0-0.2) mg/dl AST (13-39) U/L ALT (7-52) U/L Alkaline Phosphatase (34-104) U/L Troponin I High Sens (0-20) pg/ml Total Protein (6.0-8.3) gm/dl Albumin (3.4-5.0) gm/dl Procalcitonin (0-0.5) ng/ml Urine Color Urine Appearance (Clear) Urine pH (4.5-7.5) Ur Specific [place] (1.000-1.030) Urine Protein (Negative) Urine Glucose (UA) (Negative) Urine Ketones (Negative) Urine Blood (Negative) Urine Nitrite (Negative) Urine Bilirubin (Negative) Urine Urobilinogen (Negative) Ur Leukocyte Esterase (Negative) Nasal Screen MRSA (PCR) (Negative) Urine Opiates Screen (Neg) Ur Methadone, Qual (Neg) Urine Barbiturates (Neg) Ur Phencyclidine (PCP) (Neg) U Amphetamin/Meth Scrn (Neg) MDMA (Ecstasy) Screen (Neg) U Benzodiazepines Scrn (Neg) Ur Cocaine Metabolite (Neg) U Marijuana (THC) Screen (Neg) SARS-CoV-2 (PCR) (Negative) Influenza Type A (PCR) (Neg) Influenza Type B (PCR) (Neg) RSV (RT-PCR) (Neg) Blood Type O Positive Antibody Screen NEGATIVE 09/28/22 09/28/22 09/28/22 Range/Units 15:26 15:26 15:26 WBC (4.8-10.8) K/ul RBC (4.63-6.08) M/uL Hgb (14.0-18.0) g/dl Hct (40.1-51.0) % MCV (80.0-100.0) fL MCH (25.0-34.0) pg MCHC (32.0-36.0) g/dL RDW Std Deviation (36.4-46.3) fL RDW Coeff of Denise (11.5-14.5) % Plt Count (130-400) K/uL MPV (9.4-12.4) fL Immature Gran % (Auto) % Neut % (Auto) % Lymph % (Auto) % [place] % (Auto) % Eos % (Auto) % Baso % (Auto) % Neut # (Auto) (1.4-6.5) K/uL Lymph # (Auto) (1.2-3.4) K/uL [place] # (Auto) (0.24-0.82) K/uL Eos # (Auto) (0-0.50) K/uL Baso # (Auto) (0-0.2) K/uL Immature Gran # (Auto) (0.00-0.02) K/uL Absolute Nucleated RBC Nucleated RBC % (auto) Platelet Estimate Polychromasia Ovalocytes PT 10.7 (9.0-12.0) Seconds INR 1.0 (0.9-1.1) APTT 25.9 (21.0-31.0) Seconds PTT Ratio 0.9 ABG pH (7.35-7.45) ABG pCO2 (35-46) mmHg ABG pO2 (80-95) mmHg ABG HCO3 (19-24) mmol/L ABG O2 Saturation (90-95) % ABG Base Excess (-9-1.8) mEq/L Fred Test (Pos) VBG pH (7.36-7.41) VBG pCO2 (38-50) mmHg VBG pO2 mmHg VBG HCO3 mmol/L VBG O2 Saturation % VBG Base Excess mEq/L Oxygen Given Sodium 130 L (136-145) mmol/L Potassium 6.1 H* (3.5-5.1) mmol/L Chloride 84 L (98-107) mmol/L Carbon Dioxide 5 L* (21-32) mmol/L Anion Gap 41 H (3-11) BUN 45 H (6-23) mg/dl Creatinine 1.99 H (0.6-1.4) mg/dl Est Cr Clr Drug Dosing 35.6 ml/min Est GFR ( Amer) 40.8 ml/min Est GFR (Non-Af Amer) 35.2 ml/min BUN/Creatinine Ratio 22.6 H (10-20) Glucose 999 H* (70-99(Fasting)) mg/dl POC Glucose (70-99) mg/dl Estimat Average Glucose mg/dl Hemoglobin A1c (4.5-5.6) % Lactate (0.4-2.0) mmol/L Calcium 9.5 (8.5-10.1) mg/dl Phosphorus (2.5-4.9) mg/dl Magnesium 2.6 H (1.7-2.4) mg/dl Total Bilirubin 0.6 (0.2-1.0) mg/dl Direct Bilirubin 0.1 (0-0.2) mg/dl AST 16 (13-39) U/L ALT 16 (7-52) U/L Alkaline Phosphatase 134 H (34-104) U/L Troponin I High Sens 308.4 H* (0-20) pg/ml Total Protein 6.6 (6.0-8.3) gm/dl Albumin 3.8 (3.4-5.0) gm/dl Procalcitonin 4.31 H (0-0.5) ng/ml Urine Color Urine Appearance (Clear) Urine pH (4.5-7.5) Ur Specific [place] (1.000-1.030) Urine Protein (Negative) Urine Glucose (UA) (Negative) Urine Ketones (Negative) Urine Blood (Negative) Urine Nitrite (Negative) Urine Bilirubin (Negative) Urine Urobilinogen (Negative) Ur Leukocyte Esterase (Negative) Nasal Screen MRSA (PCR) (Negative) Urine Opiates Screen (Neg) Ur Methadone, Qual (Neg) Urine Barbiturates (Neg) Ur Phencyclidine (PCP) (Neg) U Amphetamin/Meth Scrn (Neg) MDMA (Ecstasy) Screen (Neg) U Benzodiazepines Scrn (Neg) Ur Cocaine Metabolite (Neg) U Marijuana (THC) Screen (Neg) SARS-CoV-2 (PCR) (Negative) Influenza Type A (PCR) (Neg) Influenza Type B (PCR) (Neg) RSV (RT-PCR) (Neg) Blood Type Antibody Screen 09/28/22 Range/Units 15:26 WBC 27.51 H (4.8-10.8) K/ul RBC 3.07 L (4.63-6.08) M/uL Hgb 9.7 L (14.0-18.0) g/dl Hct 29.7 L (40.1-51.0) % MCV 96.7 (80.0-100.0) fL MCH 31.6 (25.0-34.0) pg MCHC 32.7 (32.0-36.0) g/dL RDW Std Deviation 42.4 (36.4-46.3) fL RDW Coeff of Denise 12.1 (11.5-14.5) % Plt Count 436 H (130-400) K/uL MPV 11.0 (9.4-12.4) fL Immature Gran % (Auto) 3.2 % Neut % (Auto) 89.5 % Lymph % (Auto) 3.3 % [place] % (Auto) 3.6 % Eos % (Auto) 0.0 % Baso % (Auto) 0.4 % Neut # (Auto) 24.60 H (1.4-6.5) K/uL Lymph # (Auto) 0.91 L (1.2-3.4) K/uL [place] # (Auto) 0.99 H (0.24-0.82) K/uL Eos # (Auto) 0.00 (0-0.50) K/uL Baso # (Auto) 0.12 (0-0.2) K/uL Immature Gran # (Auto) 0.89 H (0.00-0.02) K/uL Absolute Nucleated RBC Nucleated RBC % (auto) Platelet Estimate Polychromasia Ovalocytes PT (9.0-12.0) Seconds INR (0.9-1.1) APTT (21.0-31.0) Seconds PTT Ratio ABG pH (7.35-7.45) ABG pCO2 (35-46) mmHg ABG pO2 (80-95) mmHg ABG HCO3 (19-24) mmol/L ABG O2 Saturation (90-95) % ABG Base Excess (-9-1.8) mEq/L Fred Test (Pos) VBG pH (7.36-7.41) VBG pCO2 (38-50) mmHg VBG pO2 mmHg VBG HCO3 mmol/L VBG O2 Saturation % VBG Base Excess mEq/L Oxygen Given Sodium (136-145) mmol/L Potassium (3.5-5.1) mmol/L Chloride (98-107) mmol/L Carbon Dioxide (21-32) mmol/L Anion Gap (3-11) BUN (6-23) mg/dl Creatinine (0.6-1.4) mg/dl Est Cr Clr Drug Dosing ml/min Est GFR ( Amer) ml/min Est GFR (Non-Af Amer) ml/min BUN/Creatinine Ratio (10-20) Glucose (70-99(Fasting)) mg/dl POC Glucose (70-99) mg/dl Estimat Average Glucose mg/dl Hemoglobin A1c (4.5-5.6) % Lactate (0.4-2.0) mmol/L Calcium (8.5-10.1) mg/dl Phosphorus (2.5-4.9) mg/dl Magnesium (1.7-2.4) mg/dl Total Bilirubin (0.2-1.0) mg/dl Direct Bilirubin (0-0.2) mg/dl AST (13-39) U/L ALT (7-52) U/L Alkaline Phosphatase (34-104) U/L Troponin I High Sens (0-20) pg/ml Total Protein (6.0-8.3) gm/dl Albumin (3.4-5.0) gm/dl Procalcitonin (0-0.5) ng/ml Urine Color Urine Appearance (Clear) Urine pH (4.5-7.5) Ur Specific [place] (1.000-1.030) Urine Protein (Negative) Urine Glucose (UA) (Negative) Urine Ketones (Negative) Urine Blood (Negative) Urine Nitrite (Negative) Urine Bilirubin (Negative) Urine Urobilinogen (Negative) Ur Leukocyte Esterase (Negative) Nasal Screen MRSA (PCR) (Negative) Urine Opiates Screen (Neg) Ur Methadone, Qual (Neg) Urine Barbiturates (Neg) Ur Phencyclidine (PCP) (Neg) U Amphetamin/Meth Scrn (Neg) MDMA (Ecstasy) Screen (Neg) U Benzodiazepines Scrn (Neg) Ur Cocaine Metabolite (Neg) U Marijuana (THC) Screen (Neg) SARS-CoV-2 (PCR) (Negative) Influenza Type A (PCR) (Neg) Influenza Type B (PCR) (Neg) RSV (RT-PCR) (Neg) Blood Type Antibody Screen Resident Activity Tracking Resident Involvement: Resident Care Provided Care Provided: Adult Hospital Medicine (1) DKA (diabetic ketoacidosis) Diabetes mellitus complication detail: without coma Diabetes mellitus type: type 2 Qualified Code(s): E11.10 - Type 2 diabetes mellitus with ketoacidosis without coma
[2022-09-29 09:46] LABS: BUN Creatinine Ratio 29.1 (10-20); Calcium 8.3 mg/dl (8.5-10.1); Creatinine Clr Calc Pharmacy 62.6 ml/min; Est GFR (African American) 77.5 ml/min; Est GFR (Non-African American) 66.9 ml/min; Phosphorus 2.4 mg/dl (2.5-4.9); Potassium 3.7 mmol/L (3.5-5.1)
[2022-09-29] MEDS: DOXYCYCLINE HYCLATE 100 MG in DEXTROSE 5% 100 ML IV SCH ×2 (10:33→22:37)
--- NOTE | 2022-09-29 11:30 | Pharmacy Report ---
Pharmacy Glycemic Short Note 2 - Date of Service September 29, 2022 - Glycemic Short BSG Results (Last 24 hours): 09/28/22 09/28/22 09/28/22 15:26 15:30 19:22 Glucose 999 H* POC Glucose > 600 H* > 600 H* 09/28/22 09/28/22 09/28/22 19:36 21:18 21:44 Glucose 952 H* 794 H* POC Glucose > 600 H* 09/28/22 09/28/22 09/29/22 22:44 23:33 00:46 Glucose 687 H* 606 H* 529 H* POC Glucose 09/29/22 09/29/22 09/29/22 01:53 02:09 04:11 Glucose 449 H* POC Glucose 533 H* 369 H* 09/29/22 09/29/22 09/29/22 05:04 05:38 06:00 Glucose 163 H POC Glucose 267 H 204 H 09/29/22 09/29/22 09/29/22 07:07 07:47 08:50 Glucose POC Glucose 144 H 140 H 115 H 09/29/22 09/29/22 09/29/22 09:14 10:03 11:06 Glucose 80 POC Glucose 90 94 OUTPATIENT ANTIDIABETIC REGIMEN: * Lantus 25 units SQ daily * Novolog 8 units AC HbA1C: 9.7% (09/28/22) ASSESSMENT: * Patient is a 61 YOM type 1 diabetic admitted after being found at home le thargic with dark black emesis. In DKA on arrival. Initial labs: pH-7.22, HCO2-5, AG-41, BSG >600. Initiated on an insulin infusion for DKA and pharmacy consulted to assist with glycemic management. * Insulin drip ran for ~ 12hr overnight at an average rate of 12 unit/hr. BSG within goal range this AM and calculator notifying nursing to hold. Gap closed and bicarb WNL this AM. Rate was cut in half to 5unit/hr and 30 units of Lantus (moderate stress total daily dose) administered to assist with weaning the drip. Infusion turned off ~ 1000 this AM. * On a protonix drip (in D5W) and D51/2NS w/ 20mEq of KCl @ 125 as well as antibiotics. * Patient ordered a diet this morning however still with minimal appetite. Dextrose containing IVF to continue until adequate PO intake. * Transitioned to SQ this AM with 30 units of Lantus. Will reassess basal tomorrow. Novolog ACHS 23/07. PLAN FOR INPATIENT GLYCEMIC CONTROL: * Hold outpatient oral diabetes medications * Basal insulin * Lantus 30 units SQ X 1 * Bolus insulin * NovoLog per scale ACHS or Q6hrs while NPO * Goal Range: Low 110 mg/dL - High 140 mg/dL * Correction Factor: 30 mg/dL/unit * Nutritional / Prandial insulin per carb ratio of 1 unit per 10 grams CHO consumed
[2022-09-29] MEDS: INSULIN ASPART PER UNIT SC SCH ×5 (11:55→23:18)
[2022-09-29] MEDS ORDERED: INSULIN ASPART PER UNIT SC SCH (12:00)
[2022-09-29 12:13] LABS: Hematocrit (blood only) 23.5 % (40.1-51.0); Hemoglobin 8.4 g/dl (14.0-18.0)
--- NOTE | 2022-09-29 12:30 | Hospitalist Progress Note ---
Date of Service September 29, 2022 Assessment & Plan (1) DKA (diabetic ketoacidosis): Plan: Anion gap is now closed. Glucose down to 163. Management per ICU visual developer and protocol. (2) High anion gap metabolic acidosis: Plan: Present on admission. Anion gap has closed to 10 this morning (3) GERD (gastroesophageal reflux disease): Plan: Proton pump inhibitor ordered (4) Hematemesis: Plan: No recurrence since admission. Hemoglobin is stable. (5) Sepsis: Plan: Sepsis criteria met on admission. However he does not appear to be septic at this time. All cultures negative to date (6) Hyperkalemia: Plan: Currently hypokalemic with potassium 3.3. Replacement ordered. Serial labs. (7) Anemia: Plan: Hemoglobin is drifted down to 7.6 with rehydration. No overt GI bleeding. Fecal occult blood pending. We will follow (8) Metabolic encephalopathy: Plan: Now resolved (9) Shock: Plan: Present on admission. Probably hypovolemic. Resolved with treatment of DKA and fluid resuscitation. (10) Non-ST elevation PA (NSTEMI): Plan: Possible. Troponin has increased dramatically and EKG reveals lateral T wave inversion. Cardiology consultation and cardiac echo are pending. Telemetry. (11) Acute respiratory failure with hypoxia: Plan: Present on admission. Now resolved. No evidence of pulmonary embolism or congestive heart failure. (12) Acute kidney injury superimposed on chronic kidney disease: Plan: Improved with IV fluids. Monitor intake and output. Serial labs Plan To be determined Admission and Anticipated Discharge Date Admission Date: September 28, 2022 Subjective Alert. No acute distress. DKA has resolved with anion gap 10 this morning. Glucose is down to 163. Troponin has increased dramatically to greater than 19,000. EKG reveals sinus tachycardia with lateral ST depression. Cardiac echo is pending and cardiology consultation requested. NSTEMI is a possibility here Review of Systems Review of Systems: Constitutional-no fever or chills ENT-no blurred vision, no double vision, no epistaxis, no sore throat Respiratory-no cough, no wheezing, no shortness of breath Cardiac-no palpitations, no chest pain, no syncope GI-no nausea, vomiting, diarrhea, melena, hematochezia -no urinary retention, no urinary incontinence, no dysuria, no hematuria Musculoskeletal-no joint pain, no muscle tenderness Skin-no bruising, no rashes, no pruritus Neuro-no isolated weakness, no paresthesia, no weakness Psych-no depression, no anxiety Physical Exam Physical Exam: General-alert and oriented x3, no fevers, no chills HEENT-head atraumatic and normocephalic, pupils equal and reactive to light, extraocular muscles intact Neck-no lymphadenopathy or thyromegaly, trachea midline Chest-clear to auscultation percussion. No rales wheezing or rhonchi Cardiac-tachycardic regular rhythm. Normal S1 and S2. Abdomen-normal bowel sounds, nontender, no hepatosplenomegaly Extremities-no cyanosis, clubbing, or edema Neuro-cranial nerves II through XII intact, motor and sensory function within normal limits, strength symmetrical , no focal deficits Psych-normal affect, normal mood Results & Data Results & Data ([facility]) Vital Signs (Past 12 Hours) Vital Signs Temp Pulse Resp BP Pulse Ox 09/29/22 06:30 115 H 25 H 99 09/29/22 06:30 141/73 H 09/29/22 06:00 116 H 16 98 09/29/22 06:00 141/67 H 09/29/22 05:30 140/69 09/29/22 05:30 116 H 21 97 09/29/22 05:00 112 H 8 L 97 09/29/22 05:00 136/64 09/29/22 04:30 112 H 17 99 09/29/22 04:30 134/66 09/29/22 04:00 117 H 20 98 09/29/22 04:00 135/66 09/29/22 03:30 148/65 H 09/29/22 03:30 116 H 28 H 98 09/29/22 03:00 118 H 23 96 09/29/22 03:00 139/71 09/29/22 02:30 132/65 09/29/22 02:30 118 H 18 98 09/29/22 02:30 132/65 09/29/22 02:00 118 H 21 99 09/29/22 02:00 145/65 H 09/29/22 01:30 118/61 09/29/22 01:30 113 H 12 97 09/29/22 01:00 116 H 23 100 09/29/22 01:00 137/66 09/29/22 03:00 36.7 C 09/29/22 00:30 113 H 14 99 09/29/22 00:30 119/57 L Laboratory Results 09/29/22 11:44 09/29/22 09:14 PG Care Time/CCT Total # of Minutes Spent Total Time Spent with Patient: Total time spent is greater than 50% in coordination of care (as documented) at patient's floor/unit and/or counseling patient: Coding Level of Care Code 50285 SUB INP/OBS CARE 3/50MIN Diagnoses DKA (diabetic ketoacidosis) E11.10 Diabetes mellitus complication detail: without coma Diabetes mellitus type: type 2 High anion gap metabolic acidosis E87.2 GERD (gastroesophageal reflux disease) K21.9 Hematemesis K92.0 Sepsis A41.9 Hyperkalemia E87.5 Anemia D64.9 Metabolic encephalopathy G93.41 Shock R57.9 Non-ST elevation PA (NSTEMI) I21.4 Acute respiratory failure with hypoxia J96.01 Acute kidney injury superimposed on chronic kidney disease N17.9; N18.9 (1) DKA (diabetic ketoacidosis) Diabetes mellitus complication detail: without coma Diabetes mellitus type: type 2 Qualified Code(s): E11.10 - Type 2 diabetes mellitus with ketoacidosis without coma
[2022-09-29 13:15] LABS: BUN Creatinine Ratio 26.4 (10-20); Calcium 8.2 mg/dl (8.5-10.1); Creatinine Clr Calc Pharmacy 60.6 ml/min; Est GFR (African American) 74.4 ml/min; Est GFR (Non-African American) 64.2 ml/min; Phosphorus 2.6 mg/dl (2.5-4.9); Potassium 3.9 mmol/L (3.5-5.1)
--- NOTE | 2022-09-29 13:18 | Cardiology Consultation ---
Date of Consultation September 29, 2022 Assessment & Plan (1) Elevated troponin: -appears comfortable, in no acute distress. -no acute EKG changes. -still with mental status issues. -significant anemia noted. -source of hematemesis unknown. -would not use intravenous heparin (history of heparin induced thrombocytopenia, and the above). -no indication for urgent cardiac catheterization due to the above. -consider cardiac catheterization at a later time. History of Present Illness Attending Physician: Maxim Hein MD History of Present Illness Mr. Motta is a 61-year-old male admitted yesterday in diabetic ketoacidosis with mental status changes and hematemesis. This consultation was ordered to assist in his cardiac management as his high sensitivity troponin is now elevated. History is obtained from chart review as the patient is not completely oriented. The was traveling abroad for approximately 3 weeks before his hospitalization. She was apparently spoke with him by telephone most days. When she arrived home, the patient was found on the floor surrounded by, and covered in, dark dried blood. He was immobile and demonstrated an altered mental status. On arrival to the ER, patient was noted to be in DKA and anemic. The patient denies any recent episodes of chest discomfort or exertional dyspnea. He has no prior cardiac history. Past medical and surgical history 1. Hypertension 2. Hypercholesterolemia 3. Insulin-dependent diabetes mellitus 4. GERD 5. Glaucoma 6. Anxiety 7. Appendectomy 8. 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 Occasional alcohol Family history No early coronary artery disease Allergies Allergy/AdvReac Type Severity Reaction Status Date / Time heparin AdvReac Severe HIT Verified 09/28/22 18:05 Home Medications Medication Instructions Recorded Confirmed Type Medical Marijuana 1 dose inhalation DIRECTED PRN 02/06/22 09/28/22 History NEEDED oxycodone 15 mg tablet 15 mg PO Q6H PRN Breakthrough Pain 02/09/22 09/28/22 History quetiapine 200 mg tablet 200 mg PO HS 02/09/22 09/28/22 History sildenafil 100 mg tablet 100 mg PO DAILY PRN Sexual Activity 02/09/22 09/28/22 History insulin aspart U-100 100 unit/mL 1 sliding scale dose subcut 02/11/22 09/28/22 Rx (3 mL) subcutaneous pen (Novolog USEASDIRECTD #3 mL Flexpen U-100 Insulin aspart) insulin glargine 100 unit/mL (3 25 unit (0.25 mL) subcut QAM #3 mL 02/11/22 09/28/22 Rx mL) subcutaneous pen (Lantus Solostar U-100 Insulin) pen needle,diabetic, disp unit 32 #100 ea 02/11/22 09/28/22 Rx gauge x 1/4", remover and disposal unit aspirin 81 mg tablet,delayed 81 mg PO QPM 02/17/22 09/28/22 History release esomeprazole magnesium 40 mg 40 mg PO QAM 02/17/22 09/28/22 History capsule,delayed release (Nexium) ibuprofen 600 mg tablet 600 mg PO TID PRN Pain 02/17/22 09/28/22 History lisinopril 40 mg tablet 40 mg PO QAM 02/17/22 09/28/22 History oxycodone 15 mg tablet,crush 15 mg PO Q12 02/17/22 09/28/22 History resistant,extended release 12 hr (OxyContin) sertraline 100 mg tablet 100 mg PO QAM 02/17/22 09/28/22 History testosterone cypionate 200 mg/mL 200 mg IM WK 02/17/22 09/28/22 History intramuscular oil Patient History Medical History (Updated 09/29/22 @ 13:29 by Raheel Ludwig MD) Anemia Anxiety Chronic back pain Chronic pain GERD (gastroesophageal reflux disease) Glaucoma History of seizure last seizure "couple years ago" -- d/t hypoglycemia HLD (hyperlipidemia) HTN (hypertension) Osteoarthritis Type 1 diabetes mellitus Surgical History History of appendectomy History of knee surgery Rt History of tonsillectomy Family History Other No family history of adverse response to anesthesia Social History Smoking Status: Never smoker Second Hand Exposure: No; Hx Alcohol Use: Yes Alcohol type: hard liquor Hx Substance Use: Yes Last Used Substance: Days (ago) Last Used Substance Other:: months ago Substance Use Type Other:: medical Preferred Language: Frisian Communication Ability: Effective Electric Container Tester Required: No Beliefs That Will Affect Care: Rastafarian Current Living Situation: Spouse Other Information That Helps Us Care for You: No Feels Safe at Home: Yes Safety Concerns: Feels Safe At This Time Assistive Devices: Glasses Physical Exam Physical Exam: In general is well-developed well-nourished white male in no acute distress. HEENT exam is negative. Neck is supple with full carotid upstrokes. There are no carotid bruits. Jugular is pressure is flat 90. There is no thyromegaly. Cardiovascular exam reveals a regular rhythm with normal S1 and S2. No S3, S4, or murmurs are noted. Lungs are clear without rales, rhonchi or wheezes. Abdomen is soft nontender without bruits. Extremities reveal intact radial artery pulses bilaterally. There is no periph eral edema. Results & Data ([facility]) Vital Signs (Past 12 Hours) Vital Signs Temp Pulse Resp BP Pulse Ox Pulse Ox O2 Del Method 09/29/22 08:00 98 09/29/22 08:00 Room Air 09/29/22 08:00 109 H 09/29/22 06:30 115 H 25 H 99 09/29/22 06:30 141/73 H 09/29/22 06:00 116 H 16 98 09/29/22 06:00 141/67 H 09/29/22 05:30 140/69 09/29/22 05:30 116 H 21 97 09/29/22 05:00 112 H 8 L 97 09/29/22 05:00 136/64 09/29/22 04:30 112 H 17 99 09/29/22 04:30 134/66 09/29/22 04:00 117 H 20 98 09/29/22 04:00 135/66 09/29/22 03:30 148/65 H 09/29/22 03:30 116 H 28 H 98 09/29/22 03:00 118 H 23 96 09/29/22 03:00 139/71 09/29/22 02:30 132/65 09/29/22 02:30 118 H 18 98 09/29/22 02:30 132/65 09/29/22 02:00 118 H 21 99 09/29/22 02:00 145/65 H 09/29/22 01:30 118/61 09/29/22 01:30 113 H 12 97 09/29/22 03:00 36.7 C O2 Del Method 09/29/22 08:00 Room Air 09/29/22 08:00 09/29/22 08:00 09/29/22 06:30 09/29/22 06:30 09/29/22 06:00 09/29/22 06:00 09/29/22 05:30 09/29/22 05:30 09/29/22 05:00 09/29/22 05:00 09/29/22 04:30 09/29/22 04:30 09/29/22 04:00 09/29/22 04:00 09/29/22 03:30 09/29/22 03:30 09/29/22 03:00 09/29/22 03:00 09/29/22 02:30 09/29/22 02:30 09/29/22 02:30 09/29/22 02:00 09/29/22 02:00 09/29/22 01:30 09/29/22 01:30 09/29/22 03:00 Laboratory Results CBC notes hemoglobin 7.6, hematocrit 20.6, white count 21.7, and platelet count 118163. Electrolytes note a sodium of 145, potassium 3.7, chloride 114, bicarb 24, BUN 34, creatinine 1.17, and glucose of 80. Initial high sensitivity troponin was 308.4 with follow-up values of 1521.1 and 74286.8. Diagnostic Findings EKG notes sinus tachycardia and old anteroseptal CO. Chest x-ray shows no acute disease. PG Care Time/CCT Total # of Minutes Spent Total Time Spent with Patient: Total time spent is greater than 50% in coordination of care (as documented) at patient's floor/unit and/or counseling patient: Coding Level of Care Code INP/OBS CONSULT LVL 5, 80 MIN Diagnoses Elevated troponin R77.8
--- NOTE | 2022-09-29 14:42 | XRay Report ---
XR chest 1V portable HISTORY: Cough. r/o pneumonia COMPARISON: Chest 09/28/2022. FINDINGS: The lungs are clear. Cardiac silhouette is normal in size. No pleural effusions. No pneumot horax. IMPRESSION: No acute process. ACT 112: Negative or not required by law. Electronically signed by: Parth Rosas M.D. 09/29/2022 2:41 PM
--- NOTE | 2022-09-29 14:51 | Billing Data ---
Date of Service September 29, 2022 Coding Level of Care Code 43537 SUB INP/OBS CARE MIN
--- NOTE | 2022-09-29 14:56 | XCELERA ---
[id number]
--- NOTE | 2022-09-29 15:55 | Electrocardiogram Report ---
Test Reason : Blood Pressure : / mmHG Vent. Rate : 125 BPM Atrial Rate : 125 BPM P-R Int : 142 ms QRS Dur : 070 ms QT Int : 314 ms P-R-T Axes : 056 006 027 degrees QTc Int : 453 ms Sinus tachycardia Possible Left atrial enlargement Septal infarct , age undetermined Abnormal ECG When compared with ECG of 28-SEP-2022 15:18, Septal infarct is now Present Confirmed by Raheel Ludwig ([id number]) on 09/29/2022 3:54:45 PM Referred By: REFERRED SELF Confirmed By:Raheel Ludwig
[2022-09-29 18:50] LABS: BUN Creatinine Ratio 24.5 (10-20); Calcium 8.1 mg/dl (8.5-10.1); Creatinine Clr Calc Pharmacy 66.6 ml/min; Est GFR (African American) 83.5 ml/min; Est GFR (Non-African American) 72.1 ml/min; Magnesium 1.9 mg/dl (1.7-2.4); Phosphorus 1.9 mg/dl (2.5-4.9)
[2022-09-29] MEDS: ACETAMINOPHEN 325 MG TAB PO PRN (19:38)
[2022-09-29] MEDS: cefTRIAXone SODIUM 1,000 MG in DEXTROSE 5% AD-VAN 50 ML IV SCH (20:08)
[2022-09-30] MEDS: PANTOprazole 40 MG in DEXTROSE 5% 100 ML IV SCH ×3 (02:57→12:15)
[2022-09-30] MEDS: ACETAMINOPHEN 325 MG TAB PO PRN (02:58)
[2022-09-30] MEDS: INSULIN ASPART PER UNIT SC SCH ×5 (04:28→21:28)
--- NOTE | 2022-09-30 05:31 | Billing Data ---
Date of Service September 30, 2022 Coding Level of Care Code Critical Care 10 23- mins
[2022-09-30 05:36] LABS: Hematocrit (blood only) 21.9 % (40.1-51.0); Hemoglobin 7.8 g/dl (14.0-18.0); Mean Corpuscular Hemoglobin 31.5 pg (25.0-34.0); Mean Corpuscular Hgb Conc 35.6 g/dL (32.0-36.0); Mean Corpuscular Volume 88.3 fL (80.0-100.0); Platelet Count 246 K/uL (130-400); RDW Coefficient of Variation 12.6 % (11.5-14.5); RDW Standard Deviation 40.5 fL (36.4-46.3); Red Blood Count 2.48 M/uL (4.63-6.08); White Blood Count 15.99 K/ul (4.8-10.8)
[2022-09-30 06:38] LABS: Anisocytosis Present; Basophils # (auto) 0.02 K/uL (0-0.2); Basophils % (auto) 0.1 %; Eosinophils # (auto) 0.01 K/uL (0-0.50); Eosinophils % (auto) 0.1 %; Immature Granulocytes # (auto) 0.08 K/uL (0.00-0.02); Immature Granulocytes % (auto) 0.5 %; Lymphocytes # (auto) 0.99 K/uL (1.2-3.4); Lymphocytes % (auto) 6.2 %; Monocytes # (auto) 0.47 K/uL (0.24-0.82); Monocytes % (auto) 2.9 %; Neutrophils # (auto) 14.42 K/uL (1.4-6.5); Neutrophils % (auto) 90.2 %
[2022-09-30] MEDS ORDERED: LANTUS PER UNIT CHARGE SQ SCH (09:00)
[2022-09-30] MEDS: DOXYCYCLINE HYCLATE 100 MG in DEXTROSE 5% 100 ML IV SCH (10:10)
--- NOTE | 2022-09-30 11:15 | XRay Report ---
XR forearm RT 2V HISTORY: 61 years-old Male pain in right arm acute pain of the right upper extremity COMPARISON: None TECHNIQUE: 2 views of the right forearm FINDINGS: Arterial calcifications. An IV catheter is noted within the dorsal soft tissues of the distal forearm with additional catheter present within the region of the antecubital fossa. Soft tissue swelling wi th soft tissue air is noted along the dorsal aspect of the distal forearm with associated soft tissue swelling. No acute fracture, dislocation or osseous erosion. IMPRESSION: 1. No acute fracture or dislocation. 2. Soft tissue swelling with soft tissue air within the dorsal tissues of the distal forearm. Finding s may be postprocedural with adjacent IV catheter however should be correlated clinically to exclude infection. ACT 112: Negative or not required by law. The above report was generated using voice recognition software. It may contain grammatical, syntax o r spelling errors. Electronically signed by: Freddie Trinidad M.D. 09/30/2022 11:14 AM
--- NOTE | 2022-09-30 13:31 | Gastrointestinal Consultation ---
Date of Consultation September 30, 2022 Assessment & Plan (1) Hematemesis: Pleasant man who was in DKA and developed hematemesis. I had endoscoped him about a month ago and he had severe esophagitis. We hadn't gotten back together in the clinic to change his medications and I asked him to double up on his nexi um until we got together but he doesn't recall that. His hematemesis could be from his esophagitis. He also could have had a Brianne Stroud tear. Of note he was taking 1800 mg of ibuprofen daily for headaches so it is possible that he has developed an ulcer. At any rate he is no longer bleeding. He has had no more hematemesis and he has not been passing melena or hematochezia. Since I did EGD last month I would just observe for now. Since he has PO intake I will stop protonix drip and have his bring in his nexium. I will change his medications through the clinic but I will have him double the nexium History of Present Illness Reason for Consultation: hematemesis Attending Physician: Marcello Clancy MD History of Present Illness 61 year old man who is known to me from recent EGD in August. At that time he had LA class D esophagitis. He was on nexium at home. I think I remembered asking him to double the nexium but he doesn't remember that. He says he started vomiting and vomited a lot of fluid which had blood. At that time he was in significant DKA. Since he has been in the hospital he has not vomited. He also denies having melenic stools or any hematochezia. He does say he feels really sick and is insistent that the protonix is making him sick. He is so adamant he says he will leave the hospital if it isn't stopped. Allergies Allergy/AdvReac Type Severity Reaction Status Date / Time heparin AdvReac Severe HIT Verified 09/28/22 18:05 Home Medications Medication Instructions Recorded Confirmed Type Medical Marijuana 1 dose inhalation DIRECTED PRN 02/06/22 09/28/22 History NEEDED oxycodone 15 mg tablet 15 mg PO Q6H PRN Breakthrough Pain 02/09/22 09/28/22 History quetiapine 200 mg tablet 200 mg PO HS 02/09/22 09/28/22 History sildenafil 100 mg tablet 100 mg PO DAILY PRN Sexual Activity 02/09/22 09/28/22 History insulin aspart U-100 100 unit/mL 1 sliding scale dose subcut 02/11/22 09/28/22 Rx (3 mL) subcutaneous pen (Novolog USEASDIRECTD #3 mL Flexpen U-100 Insulin aspart) insulin glargine 100 unit/mL (3 25 unit (0.25 mL) subcut QAM #3 mL 02/11/22 09/28/22 Rx mL) subcutaneous pen (Lantus Solostar U-100 Insulin) pen needle,diabetic, disp unit 32 #100 ea 02/11/22 09/28/22 Rx gauge x 1/4", remover and disposal unit aspirin 81 mg tablet,delayed 81 mg PO QPM 02/17/22 09/28/22 History release esomeprazole magnesium 40 mg 40 mg PO QAM 02/17/22 09/28/22 History capsule,delayed release (Nexium) ibuprofen 600 mg tablet 600 mg PO TID PRN Pain 02/17/22 09/28/22 History lisinopril 40 mg tablet 40 mg PO QAM 02/17/22 09/28/22 History oxycodone 15 mg tablet,crush 15 mg PO Q12 02/17/22 09/28/22 History resistant,extended release 12 hr (OxyContin) sertraline 100 mg tablet 100 mg PO QAM 02/17/22 09/28/22 History testosterone cypionate 200 mg/mL 200 mg IM WK 02/17/22 09/28/22 History intramuscular oil Patient History Medical History Anemia Anxiety Chronic back pain Chronic pain GERD (gastroesophageal reflux disease) Glaucoma History of seizure last seizure "couple years ago" -- d/t hypoglycemia HLD (hyperlipidemia) HTN (hypertension) Osteoarthritis Type 1 diabetes mellitus Surgical History History of appendectomy History of knee surgery Rt History of tonsillectomy Family History Other No family history of adverse response to anesthesia Social History Smoking Status: Never smoker Second Hand Exposure: No; Hx Alcohol Use: Yes Alcohol type: hard liquor Hx Substance Use: Yes Last Used Substance: Days (ago) Last Used Substance Other:: months ago Substance Use Type Other:: medical Preferred Language: Austrian Communication Ability: Impaired Buffet Manager Required: No Beliefs That Will Affect Care: Amish Current Living Situation: Spouse Other Information That Helps Us Care for You: No Feels Safe at Home: Yes Safety Concerns: Feels Safe At This Time Assistive Devices: None Review of Systems Review of Systems: All systems reviewed & are unremarkable except as noted in HPI & below Physical Exam Constitutional: WD/WN, vitals as above no acute distress Eyes: PERRL, conjunctivae normal, anicteric sclerae ENMT: external ear and nose normal, oropharynx normal Neck: trachea midline, no thyromegaly Respiratory: normal respiratory effort, lungs clear to auscultation Cardiovascular: RRR, no murmur, no edema Gastrointestinal (Abdomen): normal bowel sounds, soft, nontender, no hepatosplenomegaly Musculoskeletal: Extremities: no cyanosis and no clubbing Skin: no rashes, warm and dry Neurologic: PERRL, EOMI, accommodation nl, no face palsy, no dysarthria Psychiatric: Orientation: alert and oriented x 3 Results & Data ([facility] [place]) Vital Signs (Past 12 Hours) Vital Signs Temp Pulse Resp BP Pulse Ox Pulse Ox O2 Del Method 09/30/22 12:00 37.3 C 09/30/22 11:00 113 H 18 96 09/30/22 11:00 140/74 09/30/22 10:00 117 H 18 09/30/22 10:00 146/74 H 95 09/30/22 09:00 113 H 19 09/30/22 09:00 118/61 09/30/22 08:00 113 H 24 09/30/22 08:00 141/76 H 09/30/22 07:00 110 H 24 09/30/22 07:00 134/57 L 09/30/22 08:00 36.8 C 09/30/22 08:00 93 09/30/22 08:00 109 H 09/30/22 07:49 Room Air 09/30/22 06:00 112 H 17 133/74 97 Room Air 09/30/22 04:00 37.1 C 09/30/22 04:00 109 H 22 09/30/22 04:00 106 H 18 141/79 H 95 09/30/22 03:00 139/76 O2 Del Method 09/30/22 12:00 09/30/22 11:00 09/30/22 11:00 09/30/22 10:00 09/30/22 10:00 09/30/22 09:00 09/30/22 09:00 09/30/22 08:00 09/30/22 08:00 09/30/22 07:00 09/30/22 07:00 09/30/22 08:00 09/30/22 08:00 Room Air 09/30/22 08:00 09/30/22 07:49 09/30/22 06:00 09/30/22 04:00 09/30/22 04:00 09/30/22 04:00 09/30/22 03:00 Laboratory Results 09/30/22 09/30/22 09/30/22 Range/Units 11:19 07:26 05:15 WBC 15.99 H (4.8-10.8) K/ul RBC 2.48 L (4.63-6.08) M/uL Hgb 7.8 L (14.0-18.0) g/dl Hct 21.9 L (40.1-51.0) % MCV 88.3 (80.0-100.0) fL MCH 31.5 (25.0-34.0) pg MCHC 35.6 (32.0-36.0) g/dL RDW Std Deviation 40.5 (36.4-46.3) fL RDW Coeff of Denise 12.6 (11.5-14.5) % Plt Count 246 (130-400) K/uL MPV 10.0 (9.4-12.4) fL Immature Gran % (Auto) 0.5 % Neut % (Auto) 90.2 % Lymph % (Auto) 6.2 % Haskell % (Auto) 2.9 % Eos % (Auto) 0.1 % Baso % (Auto) 0.1 % Neut # (Auto) 14.42 H (1.4-6.5) K/uL Lymph # (Auto) 0.99 L (1.2-3.4) K/uL Haskell # (Auto) 0.47 (0.24-0.82) K/uL Eos # (Auto) 0.01 (0-0.50) K/uL Baso # (Auto) 0.02 (0-0.2) K/uL Immature Gran # (Auto) 0.08 H (0.00-0.02) K/uL Anisocytosis Present Sodium (136-145) mmol/L Potassium (3.5-5.1) mmol/L Chloride (98-107) mmol/L Carbon Dioxide (21-32) mmol/L Anion Gap (3-11) BUN (6-23) mg/dl Creatinine (0.6-1.4) mg/dl Est Cr Clr Drug Dosing ml/min Est GFR ( Amer) ml/min Est GFR (Non-Af Amer) ml/min BUN/Creatinine Ratio (10-20) Glucose (70-99(Fasting)) mg/dl POC Glucose 143 H 111 H (70-99) mg/dl Calcium (8.5-10.1) mg/dl Phosphorus (2.5-4.9) mg/dl Magnesium (1.7-2.4) mg/dl Troponin I High Sens (0-20) pg/ml 09/30/22 09/29/22 09/29/22 Range/Units 04:23 23:02 19:41 WBC (4.8-10.8) K/ul RBC (4.63-6.08) M/uL Hgb (14.0-18.0) g/dl Hct (40.1-51.0) % MCV (80.0-100.0) fL MCH (25.0-34.0) pg MCHC (32.0-36.0) g/dL RDW Std Deviation (36.4-46.3) fL RDW Coeff of Denise (11.5-14.5) % Plt Count (130-400) K/uL MPV (9.4-12.4) fL Immature Gran % (Auto) % Neut % (Auto) % Lymph % (Auto) % Haskell % (Auto) % Eos % (Auto) % Baso % (Auto) % Neut # (Auto) (1.4-6.5) K/uL Lymph # (Auto) (1.2-3.4) K/uL Haskell # (Auto) (0.24-0.82) K/uL Eos # (Auto) (0-0.50) K/uL Baso # (Auto) (0-0.2) K/uL Immature Gran # (Auto) (0.00-0.02) K/uL Anisocytosis Sodium (136-145) mmol/L Potassium (3.5-5.1) mmol/L Chloride (98-107) mmol/L Carbon Dioxide (21-32) mmol/L Anion Gap (3-11) BUN (6-23) mg/dl Creatinine (0.6-1.4) mg/dl Est Cr Clr Drug Dosing ml/min Est GFR ( Amer) ml/min Est GFR (Non-Af Amer) ml/min BUN/Creatinine Ratio (10-20) Glucose (70-99(Fasting)) mg/dl POC Glucose 264 H 161 H 137 H (70-99) mg/dl Calcium (8.5-10.1) mg/dl Phosphorus (2.5-4.9) mg/dl Magnesium (1.7-2.4) mg/dl Troponin I High Sens (0-20) pg/ml 09/29/22 09/29/22 09/29/22 Range/Units 17:51 17:51 16:21 WBC (4.8-10.8) K/ul RBC (4.63-6.08) M/uL Hgb (14.0-18.0) g/dl Hct (40.1-51.0) % MCV (80.0-100.0) fL MCH (25.0-34.0) pg MCHC (32.0-36.0) g/dL RDW Std Deviation (36.4-46.3) fL RDW Coeff of Denise (11.5-14.5) % Plt Count (130-400) K/uL MPV (9.4-12.4) fL Immature Gran % (Auto) % Neut % (Auto) % Lymph % (Auto) % Haskell % (Auto) % Eos % (Auto) % Baso % (Auto) % Neut # (Auto) (1.4-6.5) K/uL Lymph # (Auto) (1.2-3.4) K/uL Haskell # (Auto) (0.24-0.82) K/uL Eos # (Auto) (0-0.50) K/uL Baso # (Auto) (0-0.2) K/uL Immature Gran # (Auto) (0.00-0.02) K/uL Anisocytosis Sodium 142 (136-145) mmol/L Potassium 4.0 (3.5-5.1) mmol/L Chloride 113 H (98-107) mmol/L Carbon Dioxide 19 L (21-32) mmol/L Anion Gap 10 (3-11) BUN 27 H (6-23) mg/dl Creatinine 1.10 (0.6-1.4) mg/dl Est Cr Clr Drug Dosing 66.6 ml/min Est GFR ( Amer) 83.5 ml/min Est GFR (Non-Af Amer) 72.1 ml/min BUN/Creatinine Ratio 24.5 H (10-20) Glucose 158 H (70-99(Fasting)) mg/dl POC Glucose 137 H (70-99) mg/dl Calcium 8.1 L (8.5-10.1) mg/dl Phosphorus 1.9 L (2.5-4.9) mg/dl Magnesium 1.9 (1.7-2.4) mg/dl Troponin I High Sens 82178.6 H* D (0-20) pg/ml Diagnostic Findings Head CT 09/28/22 16:33 CT head/brain wo con CLINICAL HISTORY: 61 years-old Male with AMS. Acutely altered mental status TECHNIQUE: Multiple axial CT images of the head were obtained without contrast. A dose lowering technique was utilized adhering to the principles of ALARA. CT DOSE: 614.27 mGy.cm COMPARISON: 02/06/2022 FINDINGS: No acute intracranial hemorrhage, midline shift, intracranial mass, hydrocephalus, territorial ischemia or abnormal extra-axial collection. Involutional changes. Unchanged ventriculomegaly, likely on an ex vacuo basis. Motion degraded exam. The calvarium is intact. The paranasal sinuses, mastoid air cells, and middle ear cavities are clear. IMPRESSION: No acute intracranial abnormality. ACT 112: Negative or not required by law. The above report was generated using voice recognition software. It may contain grammatical, syntax or spelling errors. Electronically signed by: Freddie Trinidad M.D. 09/28/2022 6:35 PM Abdomen/Pelvis CT 09/28/22 20:[address] WITHOUT CONTRAST CT DOSE: 289.00 mGy.cm HISTORY: hematemesis, question of intra-abd infection TECHNIQUE: Multiaxial CT images of the abdomen and pelvis were performed without contrast. A dose lowering technique was utilized adhering to the principles of ALARA. COMPARISON STUDY: Lumbar spine MRI 04/17/2022. Abdomen and pelvis CT 02/06/2022. FINDINGS: An old L2 vertebroplasty again noted. There is motion artifact. The lung bases appear clear. No pneumoperitoneum. No pneumatosis. Patchy areas of sclerosis within the left ribs which are suboptimally assessed due to motion artifact but may represent healing fractures moderate circumferential thickening of the distal esophagus. Hepatic steatosis. The unenhanced gallbladder, pancreas, spleen, adrenal glands, and kidneys are within normal limits. No hydronephrosis. No retroperitoneal or pelvic lymphadenopathy. The bladder is unremarkable. Normal caliber abdominal aorta. No pelvic free fluid. Suboptimal evaluation for bowel pathology due to the lack of intravenous and oral contrast. However, there is no definite bowel wall thickening or obstruction. Colonic diverticulosis. No evidence for acute diverticulitis. The appendix appears surgically absent. IMPRESSION: 1. Overall suboptimal evaluation abdomen and pelvis due to the motion artifact. 2. Moderate circumferential thickening of the distal esophagus which favors an esophagitis. This should be followed up with endoscopy. 3. No definite bowel wall thickening or obstruction. 4. Colonic diverticulosis. No evidence for acute diverticulitis. 5. Hepatic steatosis. ACT 112: Negative or not required by law. Electronically signed by: Parth Rosas M.D. 09/29/2022 8:18 AM Chest X-Ray 09/29/22 09:59 XR chest 1V portable HISTORY: Cough. r/o pneumonia COMPARISON: Chest 09/28/2022. FINDINGS: The lungs are clear. Cardiac silhouette is normal in size. No pleural effusions. No pneumothorax. IMPRESSION: No acute process. ACT 112: Negative or not required by law. Electronically signed by: Parth Rosas M.D. 09/29/2022 2:41 PM Forearm X-Ray 09/30/22 09:58 XR forearm RT 2V HISTORY: 61 years-old Male pain in right arm acute pain of the right upper extremity COMPARISON: None TECHNIQUE: 2 views of the right forearm FINDINGS: Arterial calcifications. An IV catheter is noted within the dorsal soft tissues of the distal forearm with additional catheter present within the region of the antecubital fossa. Soft tissue swelling with soft tissue air is noted along the dorsal aspect of the distal forearm with associated soft tissue swelling. No acute fracture, dislocation or osseous erosion. IMPRESSION: 1. No acute fracture or dislocation. 2. Soft tissue swelling with soft tissue air within the dorsal tissues of the distal forearm. Findings may be postprocedural with adjacent IV catheter however should be correlated clinically to exclude infection. ACT 112: Negative or not required by law. The above report was generated using voice recognition software. It may contain grammatical, syntax or spelling errors. Electronically signed by: Freddie Trinidad M.D. 09/30/2022 11:14 AM
[2022-09-30] MEDS ORDERED: COUGH DROP (SUGAR FREE) LOZ 24 LOZ/1 BOX BUCCAL ONE (15:02)
[2022-09-30] MEDS ORDERED: COUGH DROP (SUGAR FREE) LOZ 24 LOZ/1 BOX BUCCAL PRN (15:09)
[2022-09-30] MEDS ORDERED: SODIUM CHLORIDE 0.9% 1000ML 1,000 ML IV SCH (15:15)
[2022-09-30] MEDS: SODIUM CHLORIDE 0.9% 1000ML 1,000 ML IV SCH (15:30)
[2022-09-30] MEDS: SUCRALFATE 1 GM/10 ML UDC PO SCH (15:42)
[2022-09-30] MEDS ORDERED: NEXIUM 40 MG PO SCH (21:00)
--- NOTE | 2022-09-30 22:27 | Hospitalist Progress Note ---
Date of Service September 30, 2022 Assessment & Plan (1) DKA (diabetic ketoacidosis): Plan: Austen is a 61 year old male w/ PmHx insulin dependent diabetes mellitus, last DKA 01/2022 admitted for DKA and altered mental status. DKA, Insulin Dependent T2DM, HAGMA: -BSG 999, Anion Gap 41, lactic acid 6.0, potassium 6.1, pH 7.07 on VBG, WBC 27 on admission. -Last A1c from January 2022 10.3. -Given 1L NSS bolus x4, 150meq bicarb, started on insulin drip in ED. -CXR negative for acute pulmonary process. Procal 4.31. -U/A negative for bacteria, WBC, Nitrate; + for glucose and ketones. 09/30-diabetic ketoacidosis and high anion gap metabolic acidosis improved We will continue IV fluids to restore volume status Hyperkalemia: -Potassium 6.1 on admission. -May be falsely elevated due to DKA. -Continue to trend w/ q4h BMP. -Continue normosol 125ml/hr, replenish K+ as needed. -On continuous cardiac monitoring. Hematemesis: -Hgb 9.7 on admission, baseline on previous admission 10-12. -May be from DKA induced vomiting. -CT A&P ordered for possible internal GI bleeding. -Pantoprazole drip. -Continue to monitor AM CBC. Elevated Troponin: -Troponin 308 on admission. EKG tachycardic, normal rhythm without any acute ischemic changes. -Most likely due to demand ischemia from hypovolemia. -Trend until peak. Acute Renal Failure: -Baseline creatinine 0.8-1.1 -Creatinine 1.99 on admission. -Likely secondary to hypovolemia from DKA and excess vomiting. -Normosol 125ml/hr as above. -Trend q4h BMP. (2) Type 2 diabetes mellitus: (3) Anemia: (4) Hyperkalemia: (5) Hematemesis: (6) GERD (gastroesophageal reflux disease): (7) ARF (acute renal failure): (8) High anion gap metabolic acidosis: Admission and Anticipated Discharge Date Admission Date: September 28, 2022 Subjective Alert. No acute distress. pt has intermittent cough and request some antacids No fevers or chills Review of Systems Review of Systems: All systems reviewed & are unremarkable except as noted in HPI & below Physical Exam Physical Exam: Constitutional: no acute distress, pleasant. Vitals as above. HEENT: No scleral injection or discharge. . Clear oropharynx without exudate. Neck: Supple without lymphadenopathy or thyromegaly. Trachea midline. Lungs: Clear to auscultation bilaterally . Cardiac: Normal rhythm. No murmurs.No extremity edema. Abdomen:Bowel sounds present. Soft and nondistended. . No guarding or rebound tenderness. MSK: No cyanosis or clubbing. Skin: No rashes, warm, dry. Neurologic: Grossly intact cranial nerves. . Results & Data Results & Data ([facility]) Vital Signs (Past 12 Hours) Vital Signs Temp Pulse Resp BP Pulse Ox Pulse Ox O2 Del Method 09/30/22 21:34 37.8 C H 09/30/22 20:00 116 H 14 145/75 H 95 Room Air 09/30/22 16:00 116 H 20 94 09/30/22 16:00 150/83 H 09/30/22 15:00 111 H 17 09/30/22 15:00 129/80 09/30/22 14:00 114 H 20 09/30/22 14:00 143/86 H 09/30/22 13:00 118 H 24 09/30/22 13:00 140/78 09/30/22 12:00 113 H 19 95 09/30/22 12:00 146/77 H 09/30/22 16:00 95 09/30/22 16:00 114 H 09/30/22 16:00 37.7 C H 09/30/22 12:00 37.3 C 09/30/22 11:00 113 H 18 96 09/30/22 11:00 140/74 O2 Del Method 09/30/22 21:34 09/30/22 20:00 09/30/22 16:00 09/30/22 16:00 09/30/22 15:00 09/30/22 15:00 09/30/22 14:00 09/30/22 14:00 09/30/22 13:00 09/30/22 13:00 09/30/22 12:00 09/30/22 12:00 09/30/22 16:00 Room Air 09/30/22 16:00 09/30/22 16:00 09/30/22 12:00 09/30/22 11:00 09/30/22 11:00 Laboratory Results Short CBC 09/30/22 Range/Units 05:15 WBC 15.99 H (4.8-10.8) K/ul Hgb 7.8 L (14.0-18.0) g/dl Hct 21.9 L (40.1-51.0) % Plt Count 246 (130-400) K/uL PG Care Time/CCT Total # of Minutes Spent Total Time Spent with Patient: Total time spent is greater than 50% in coordination of care (as documented) at patient's floor/unit and/or counseling patient: Coding Level of Care Code 52100 SUB INP/OBS CARE 2/35MIN Diagnoses DKA (diabetic ketoacidosis) E11.10 Diabetes mellitus complication detail: without coma Diabetes mellitus type: type 2 Type 2 diabetes mellitus E11.9 Anemia D64.9 Hyperkalemia E87.5 Hematemesis K92.0 GERD (gastroesophageal reflux disease) K21.9 ARF (acute renal failure) N17.9 High anion gap metabolic acidosis E87.2 (1) DKA (diabetic ketoacidosis) Diabetes mellitus complication detail: without coma Diabetes mellitus type: type 2 Qualified Code(s): E11.10 - Type 2 diabetes mellitus with ketoacidosis without coma
[2022-10-01] MEDS: SODIUM CHLORIDE 0.9% 1000ML 1,000 ML IV SCH ×2 (03:38→12:30)
[2022-10-01 04:53] LABS: Hematocrit (blood only) 23.5 % (40.1-51.0); Hemoglobin 8.4 g/dl (14.0-18.0); Mean Corpuscular Hemoglobin 32.1 pg (25.0-34.0); Mean Corpuscular Hgb Conc 35.7 g/dL (32.0-36.0); Mean Corpuscular Volume 89.7 fL (80.0-100.0); Platelet Count 198 K/uL (130-400); RDW Coefficient of Variation 12.4 % (11.5-14.5); RDW Standard Deviation 40.7 fL (36.4-46.3); Red Blood Count 2.62 M/uL (4.63-6.08); White Blood Count 11.13 K/ul (4.8-10.8)
[2022-10-01 05:23] LABS: BUN Creatinine Ratio 16.9 (10-20); Calcium 7.7 mg/dl (8.5-10.1); Creatinine Clr Calc Pharmacy 112.8 ml/min; Est GFR (African American) 121.7 ml/min; Magnesium 1.7 mg/dl (1.7-2.4); Phosphorus 1.8 mg/dl (2.5-4.9); Potassium 3.6 mmol/L (3.5-5.1)
[2022-10-01 06:04] LABS: Basophils # (auto) 0.01 K/uL (0-0.2); Basophils % (auto) 0.1 %; Immature Granulocytes # (auto) 0.09 K/uL (0.00-0.02); Immature Granulocytes % (auto) 0.8 %; Lymphocytes # (auto) 0.53 K/uL (1.2-3.4); Lymphocytes % (auto) 4.8 %; Monocytes # (auto) 0.42 K/uL (0.24-0.82); Monocytes % (auto) 3.8 %; Neutrophils # (auto) 10.08 K/uL (1.4-6.5); Neutrophils % (auto) 90.5 %
[2022-10-01] MEDS: SERTRALINE HCL 100 MG TABLET PO SCH (08:37)
[2022-10-01] MEDS: SUCRALFATE 1 GM/10 ML UDC PO SCH ×3 (08:37→17:24)
[2022-10-01] MEDS: INSULIN ASPART PER UNIT SC SCH ×4 (08:38→21:43)
[2022-10-01] MEDS: LANTUS PER UNIT CHARGE SQ SCH (08:38)
--- NOTE | 2022-10-01 08:54 | Gastroenterology Progress Note ---
Date of Service October 01, 2022 Assessment & Plan (1) Hematemesis: Plan: He seems stable. Suspect his stomach issues are medication related or related to his diabetes. No intervention planned now. Admission and Anticipated Discharge Date Admission Date: September 28, 2022 Subjective Stopping protonix did not help with nausea as I suspected. He tells me his nausea will go away now that he is getting zoloft. No hematemesis. No melena. H/H stable and a little up Physical Exam Constitutional: WD/WN, vitals as above Results & Data ([facility]) Vital Signs (Past 12 Hours) Vital Signs Temp Pulse Resp BP Pulse Ox O2 Del Method 10/01/22 03:25 112 H 21 139/74 95 Room Air 10/01/22 03:28 37.1 C 10/01/22 00:00 118 H 09/30/22 22:43 120 H 20 151/83 H 95 Room Air 10/01/22 00:28 36.7 C 09/30/22 21:34 37.8 C H
[2022-10-01] MEDS ORDERED: CHLORASEPTIC 1.4% SOLN 180 ML BTL MT PRN (13:51)
--- NOTE | 2022-10-01 18:22 | Hospitalist Progress Note ---
Date of Service October 01, 2022 Assessment & Plan (1) DKA (diabetic ketoacidosis): Plan: Austen is a 61 year old male w/ PmHx insulin dependent diabetes mellitus, last DKA 01/2022 admitted for DKA and altered mental status. DKA, Insulin Dependent T2DM, HAGMA: -BSG 999, Anion Gap 41, lactic acid 6.0, potassium 6.1, pH 7.07 on VBG, WBC 27 on admission. -Last A1c from January 2022 10.3. -Given 1L NSS bolus x4, 150meq bicarb, started on insulin drip in ED. -CXR negative for acute pulmonary process. Procal 4.31. -U/A negative for bacteria, WBC, Nitrate; + for glucose and ketones. 09/30-diabetic ketoacidosis and high anion gap metabolic acidosis improved We will continue IV fluids to restore volume status 10/01-DKA is improved and resolved Patient able to tolerate oral no further GI bleed noted Hyperkalemia: -Potassium 6.1 on admission. -May be falsely elevated due to DKA. Potassium today 3.6 Hematemesis: -Hgb 9.7 on admission, baseline on previous admission 10-12. -May be from DKA induced vomiting. -CT A&P ordered for possible internal GI bleeding. -Pantoprazole drip. -Continue to monitor AM CBC. Elevated Troponin: -Troponin 308 on admission. EKG tachycardic, normal rhythm without any acute ischemic changes. -Most likely due to demand ischemia from hypovolemia. -Improved or resolved Acute Renal Failure: -Baseline creatinine 0.8-1.1 -Creatinine 1.99 on admission. Creatinine 0.65 today and TOD likely secondary to hypovolemia and this is resolved (2) Type 2 diabetes mellitus: (3) Anemia: (4) Hyperkalemia: (5) Hematemesis: (6) GERD (gastroesophageal reflux disease): (7) ARF (acute renal failure): (8) High anion gap metabolic acidosis: Admission and Anticipated Discharge Date Admission Date: September 28, 2022 Subjective Patient reports slight improvement in his cough symptoms with the benzocaine spray His right upper extremity extravasation related swelling is improved Patient has some intermittent nausea symptoms slight improvement with Zoloft Physical Exam Physical Exam: Constitutional: no acute distress, pleasant. Vitals as above. HEENT: No scleral injection or discharge. . Clear oropharynx without exudate. Neck: Supple without lymphadenopathy or thyromegaly. Trachea midline. Lungs: Clear to auscultation bilaterally . Cardiac: Normal rhythm. No murmurs.No extremity edema. Abdomen:Bowel sounds present. Soft and nondistended. . No guarding or rebound tenderness. MSK: No cyanosis or clubbing. Skin: No rashes, warm, dry. Neurologic: Grossly intact cranial nerves. . Results & Data Results & Data ([facility] [place]) Vital Signs (Past 12 Hours) Vital Signs Temp Pulse Pulse Resp BP BP Pulse Ox 10/01/22 16:00 10/01/22 16:00 105 H 10/01/22 15:58 37.0 C 104 H 18 144/89 H 100 10/01/22 10:00 106 H 17 10/01/22 09:05 112 H 27 H 97 10/01/22 09:03 155/82 H 10/01/22 08:52 115 H 25 H 10/01/22 08:00 112 H 21 10/01/22 08:00 36.4 C L 10/01/22 09:40 10/01/22 08:00 10/01/22 08:00 112 H Pulse Ox O2 Del Method O2 Del Method 10/01/22 16:00 100 Room Air 10/01/22 16:00 10/01/22 15:58 Room Air 10/01/22 10:00 10/01/22 09:05 10/01/22 09:03 10/01/22 08:52 10/01/22 08:00 10/01/22 08:00 10/01/22 09:40 Room Air 10/01/22 08:00 100 Room Air 10/01/22 08:00 Laboratory Results Short CBC 10/01/22 Range/Units 04:39 WBC 11.13 H (4.8-10.8) K/ul Hgb 8.4 L (14.0-18.0) g/dl Hct 23.5 L (40.1-51.0) % Plt Count 198 (130-400) K/uL BMP 10/01/22 04:39 Sodium 136 Potassium 3.6 Chloride 109 H Carbon Dioxide 22 BUN 11 Creatinine 0.65 D Glucose 122 H Calcium 7.7 L PG Care Time/CCT Total # of Minutes Spent Total Time Spent with Patient: Total time spent is greater than 50% in coordination of care (as documented) at patient's floor/unit and/or counseling patient: Coding Level of Care Code 54393 SUB INP/OBS CARE 2/35MIN Diagnoses DKA (diabetic ketoacidosis) E11.10 Diabetes mellitus complication detail: without coma Diabetes mellitus type: type 2 Type 2 diabetes mellitus E11.9 Anemia D64.9 Hyperkalemia E87.5 Hematemesis K92.0 GERD (gastroesophageal reflux disease) K21.9 ARF (acute renal failure) N17.9 High anion gap metabolic acidosis E87.2 (1) DKA (diabetic ketoacidosis) Diabetes mellitus complication detail: without coma Diabetes mellitus type: type 2 Qualified Code(s): E11.10 - Type 2 diabetes mellitus with ketoacidosis without coma
[2022-10-01] MEDS ORDERED: MELATONIN 3 MG TAB PO PRN (20:35)
[2022-10-01] MEDS ORDERED: ESOMEPRAZOLE MAGNESIUM 20 MG PO SCH (21:00)
[2022-10-01] MEDS: ESOMEPRAZOLE MAGNESIUM 20 MG PO SCH (21:07)
[2022-10-02 04:37] LABS: Basophils # (auto) 0.01 K/uL (0-0.2); Basophils % (auto) 0.1 %; Eosinophils # (auto) 0.17 K/uL (0-0.50); Eosinophils % (auto) 1.7 %; Hematocrit (blood only) 26.6 % (40.1-51.0); Hemoglobin 9.1 g/dl (14.0-18.0); Immature Granulocytes # (auto) 0.04 K/uL (0.00-0.02); Immature Granulocytes % (auto) 0.4 %; Lymphocytes # (auto) 0.89 K/uL (1.2-3.4); Lymphocytes % (auto) 8.9 %; Mean Corpuscular Hemoglobin 31.6 pg (25.0-34.0); Mean Corpuscular Hgb Conc 34.2 g/dL (32.0-36.0); Mean Corpuscular Volume 92.4 fL (80.0-100.0); Mean Platelet Volume 10.1 fL (9.4-12.4); Monocytes # (auto) 0.51 K/uL (0.24-0.82); Monocytes % (auto) 5.1 %; Neutrophils % (auto) 83.8 %; Platelet Count 181 K/uL (130-400); RDW Coefficient of Variation 12.2 % (11.5-14.5); RDW Standard Deviation 41.3 fL (36.4-46.3); Red Blood Count 2.88 M/uL (4.63-6.08); White Blood Count 10.02 K/ul (4.8-10.8)
[2022-10-02 04:56] LABS: BUN Creatinine Ratio 17.7 (10-20); Calcium 8.7 mg/dl (8.5-10.1); Creatinine Clr Calc Pharmacy 118.2 ml/min; Est GFR (African American) 124.1 ml/min; Est GFR (Non-African American) 107.1 ml/min; Magnesium 1.9 mg/dl (1.7-2.4); Phosphorus 2.6 mg/dl (2.5-4.9); Potassium 3.4 mmol/L (3.5-5.1)
[2022-10-02] MEDS: ESOMEPRAZOLE MAGNESIUM 20 MG PO SCH (07:46)
[2022-10-02] MEDS: SERTRALINE HCL 100 MG TABLET PO SCH (07:46)
[2022-10-02] MEDS: SUCRALFATE 1 GM/10 ML UDC PO SCH ×2 (07:46→12:00)
[2022-10-02] MEDS: LANTUS PER UNIT CHARGE SQ SCH (07:53)
[2022-10-02] MEDS: INSULIN ASPART PER UNIT SC SCH (07:53)
--- NOTE | 2022-10-02 07:58 | Pharmacy Report ---
Pharmacy Glycemic Short Note 2 - Date of Service October 02, 2022 - Glycemic Short BSG Results (Last 24 hours): 10/01/22 10/01/22 10/01/22 11:34 16:37 20:44 Glucose POC Glucose 135 H 101 H 79 10/02/22 10/02/22 04:30 07:30 Glucose 110 H POC Glucose 114 H OUTPATIENT ANTIDIABETIC REGIMEN: * Lantus 25 units SQ daily * Novolog 8 units AC HbA1C: 9.7% (09/28/22) ASSESSMENT: 10/02/22 * Stressors stable * AM fasting in goal range after dose reduction of Lantus to home dose yesterday. Continue same. * Dinner and HS BSG's below goal range x2 days in a row, but not hypoglycemic yet. Will loosen CHO ratio with lunch, dinner, and at bedtime. This loosening will be to weight-based moderate stress estimate as well, which is reasonable for now Background * Patient is a 61 YOM type 1 diabetic admitted after being found at home lethargic with dark black emesis. In DKA on arrival. Initial labs: pH-7.22, HCO2-5, AG-41, BSG >600. Initiated on an insulin infusion for DKA and pharmacy consulted to assist with glycemic management. * Insulin drip ran for ~ 12hr overnight at an average rate of 12 unit/hr. BSG within goal range this AM and calculator notifying nursing to hold. Gap closed and bicarb WNL this AM. Rate was cut in half to 5unit/hr and 30 units of Lantus (moderate stress total daily dose) administered to assist with weaning the drip. Infusion turned off ~ 1000 this AM. * On a protonix drip (in D5W) and D51/2NS w/ 20mEq of KCl @ 125 as well as antibiotics. * Patient ordered a diet this morning however still with minimal appetite. Dextrose containing IVF to continue until adequate PO intake. * Transitioned to SQ this AM with 30 units of Lantus. Will reassess basal tomorrow. Novolog ACHS 30/10. PLAN FOR INPATIENT GLYCEMIC CONTROL: * Basal insulin * Lantus 25 units SQ daily * Bolus insulin * NovoLog per scale ACHS or Q6hrs while NPO * Goal Range: Low 110 mg/dL - High 140 mg/dL * Correction Factor: 30 mg/dL/unit * Carb ratio: 10 g CHO/unit with breakfast, 12 g CHO/unit with lunch, dinner, and bedtime
--- NOTE | 2022-10-02 09:51 | Cardiology Progress Note ---
Date of Service October 02, 2022 Assessment & Plan (1) DKA (diabetic ketoacidosis): (2) Hematemesis: (3) Anemia: (4) Elevated troponin: Plan: Mr. Motta is a 61 year old male with a history of GERD, LA Grade 4 Esophagitis, Anemia, ARF, Chronic Pain, and Insulin Requiring Diabetes Mellitus who was admitted on 09/28/22 with DKA/AMS. Apparently his was out of town for a period of time and he was drinking heavily during that time. When she came home she found him lying on the floor covered with dried blood on and around him as well as a small garbage can that was partially filled with blood presumably from a Brianne-Stroud tear. Patient does not recall how long he had been lying on floor. Patient does not recall any cardiac symptoms, chest pain, or shortness of breath but he had an elevated [place] [address].8 pg/mL and is now trending downward. EKG on admission showed sinus tachycardia at 133 bpm, but no acute changes and follow-up EKG's have shown sinus tachycardia/sinus rhythm without acute changes. Cardiac monitoring is largely unremarkable. Echocardiogram 09/29/22 showed normal LV systolic function with normal wall motion, LVEF 55% to 60% and mild mitral regurgitation. Additionally, his CK level peaked at 1005 U/L so he likely had a component of rhabdomyolysis. Hgb reached a mary of 7.8 g/dL and is now up to 9.4 g/mL. Patient offers no complaints today and states that he is feeling well and is anxious to go home. He denies any chest pain, heaviness, tightness, pressure, or discomfort. He denies any neck, jaw, back, or arm pain. He denies any SOB, unusual ESQUIVEL, orthopnea, or PND. He denies any palpitations, syncope, or near syncope. He is maintaining a sinus rhythm/sinus tachycardia and his blood pressure is elevated. Patient was hospitalized in January 2022 with DKA and bumped his Troponin I during that hospitalization. The plan is to discharge him later today. I suspect that his markedly elevated Troponin I was secondary to demand ischemia related to DKA, acute blood loss anemia/GI bleed -- and may be falsely more inflated in the presence of rhabdomyolysis. Reassuring that his Echocardiogram showed normal LV systolic function, normal wall motion, and an LVEF of 55% to 60%. His blood pressure is currently elevated so it would be reasonable to resume his usual dose of Lisinopril 40 mg daily and would also consider starting low dose Metoprolol Succinate ER 25 mg daily. Consider further ischemic work-up as an outpatient with either a Stress Echocardiogram vs Cardiac Catheterization. Patient agrees with this plan, and all of his questions were answered to his satisfaction. Follow-up with Dr. Ludwig or myself following discharge. Admission and Anticipated Discharge Date Admission Date: September 28, 2022 Subjective Mr. Motta is a 61 year old male with a history of GERD, LA Grade 4 Esophagitis, Anemia, ARF, Chronic Pain, and Insulin Requiring Diabetes Mellitus who was admitted on 09/28/22 with DKA/AMS. Apparently his was out of town for a period of time and he was drinking heavily during that time. When she came home she found him lying on the floor covered with dried blood on and around him as well as a small garbage can that was partially filled with blood presumably from a Brianne-Stroud tear. Patient does not recall how long he had been lying on floor. Patient does not recall any cardiac symptoms, chest pain, or shortness of breath but he had an elevated hs [place] [address].8 pg/mL and is now trending downward. EKG on admission showed sinus tachycardia at 133 bpm, but no acute changes and follow-up EKG's have shown sinus tachycardia/sinus rhythm without acute changes. Cardiac monitoring is largely unremarkable. Echocardiogram 09/29/22 showed normal LV systolic function with normal wall motion, LVEF 55% to 60% and mild mitral regurgitation. Additionally, his CK level peaked at 1005 U/L so he likely had a component of rhabdomyolysis. Hgb reached a mray of 7.8 g/dL and is now up to 9.4 g/mL. Patient offers no complaints today and states that he is feeling well and is anx ious to go home. He denies any chest pain, heaviness, tightness, pressure, or discomfort. He denies any neck, jaw, back, or arm pain. He denies any SOB, unusual ESQUIVEL, orthopnea, or PND. He denies any palpitations, syncope, or near syncope. He is maintaining a sinus rhythm/sinus tachycardia and his blood pressure is elevated. Patient was hospitalized in January 2022 with DKA and bumped his Troponin I during that hospitalization. The plan is to discharge him later today. Review of Systems Review of Systems: 10 point ROS completed and is negative with the exception of what is mentioned in the HPI. Physical Exam Physical Exam: GENERAL: Patient in no acute distress. HEENT: Head is atraumatic, normocephalic. EOM's intact. Facies symmetric. No perioral cyanosis. NECK: No JVD. JVP is not elevated. Carotid upstrokes are + 2 bilaterally without obvious bruits. CHEST/LUNGS: Clear to auscultation throughout all lung ortega. No wheezes, rales, or crackles. CVS: S1 and S2 are regular, tachycardic at 104 bpm. No obvious murmurs, gallops, or rubs. PMI is nondisplaced. No lifts, heaves, or thrills. No abdominal aortic or renal bruits. ABDOMINAL EXAM: Bowel sounds are present. No masses, organomegaly, or tenderness. EXTREMITIES: No clubbing or cyanosis. No edema. Intact posterior tibial and radial pulses bilaterally. NEUROLOGIC EXAM: Patient is awake, alert, and oriented. Pleasant and cooperative. Answers questions appropriately. Speech is clear. Results & Data ([facility]) Vital Signs (Past 12 Hours) Vital Signs Temp Pulse Pulse Pulse Resp BP Pulse Ox 10/02/22 07:47 36.5 C 107 H 20 168/90 H 99 10/02/22 00:00 105 H 10/02/22 00:26 36.7 C 106 H 18 145/70 H 96 O2 Del Method 10/02/22 07:47 Room Air 10/02/22 00:00 10/02/22 00:26 Room Air Laboratory Results Laboratory Results - last 24 hr 10/01/22 10/01/22 10/01/22 11:34 13:50 16:37 WBC RBC Hgb Hct MCV MCH MCHC RDW Std Deviation RDW Coeff of Denise Plt Count MPV Immature Gran % (Auto) Neut % (Auto) Lymph % (Auto) Jennings % (Auto) Eos % (Auto) Baso % (Auto) Neut # (Auto) Lymph # (Auto) Jennings # (Auto) Eos # (Auto) Baso # (Auto) Immature Gran # (Auto) VBG pH Sodium Potassium Chloride Carbon Dioxide Anion Gap BUN Creatinine Est Cr Clr Drug Dosing Est GFR ( Amer) Est GFR (Non-Af Amer) BUN/Creatinine Ratio Glucose POC Glucose 135 H 101 H Calcium Phosphorus Magnesium Stool Occult Bld Scrn Positive A 10/01/22 10/02/22 10/02/22 20:44 04:30 04:30 WBC 10.02 RBC 2.88 L Hgb 9.1 L Hct 26.6 L MCV 92.4 MCH 31.6 MCHC 34.2 RDW Std Deviation 41.3 RDW Coeff of Denise 12.2 Plt Count 181 MPV 10.1 Immature Gran % (Auto) 0.4 Neut % (Auto) 83.8 Lymph % (Auto) 8.9 Jennings % (Auto) 5.1 Eos % (Auto) 1.7 Baso % (Auto) 0.1 Neut # (Auto) 8.40 H Lymph # (Auto) 0.89 L Jennings # (Auto) 0.51 Eos # (Auto) 0.17 Baso # (Auto) 0.01 Immature Gran # (Auto) 0.04 H VBG pH Sodium 138 Potassium 3.4 L Chloride 109 H Carbon Dioxide 23 Anion Gap 6 BUN 11 Creatinine 0.62 Est Cr Clr Drug Dosing 118.2 Est GFR ( Amer) 124.1 Est GFR (Non-Af Amer) 107.1 BUN/Creatinine Ratio 17.7 Glucose 110 H POC Glucose 79 Calcium 8.7 Phosphorus 2.6 Magnesium 1.9 Stool Occult Bld Scrn 10/02/22 10/02/22 04:30 07:30 WBC RBC Hgb Hct MCV MCH MCHC RDW Std Deviation RDW Coeff of Denise Plt Count MPV Immature Gran % (Auto) Neut % (Auto) Lymph % (Auto) Jennings % (Auto) Eos % (Auto) Baso % (Auto) Neut # (Auto) Lymph # (Auto) Jennings # (Auto) Eos # (Auto) Baso # (Auto) Immature Gran # (Auto) VBG pH 7.41 Sodium Potassium Chloride Carbon Dioxide Anion Gap BUN Creatinine Est Cr Clr Drug Dosing Est GFR ( Amer) Est GFR (Non-Af Amer) BUN/Creatinine Ratio Glucose POC Glucose 114 H Calcium Phosphorus Magnesium Stool Occult Bld Scrn Diagnostic Findings CT SCAN HEAD 09/28/22: No acute intracranial hemorrhage, midline shift, intracranial mass, hydrocephalus, territorial ischemia or abnormal extra-axial collection. Involutional changes. Unchanged ventriculomegaly, likely on an ex vacuo basis. Motion degraded exam. The calvarium is intact. The paranasal sinuses, mastoid air cells, and middle ear cavities are clear. IMPRESSION: -- No acute intracranial abnormality. CTAP 09/28/22: IMPRESSION: 1. Overall suboptimal evaluation abdomen and pelvis due to the motion artifact. 2. Moderate circumferential thickening of the distal esophagus which favors an esophagitis. This should be followed up with endoscopy. 3. No definite bowel wall thickening or obstruction. 4. Colonic diverticulosis. No evidence for acute diverticulitis. 5. Hepatic steatosis. CXR 09/28/22: The lungs are clear. Cardiac silhouette is normal in size. No pleural effusions. No pneumothorax. IMPRESSION: -- No acute process. Medications Administered Medications Medical Marijuana 1 dose inhalation DIRECTED PRN NEEDED 02/06/22 [History Confirmed 09/28/22] oxycodone 15 mg tablet 15 mg PO Q6H PRN Breakthrough Pain 02/09/22 [History Confirmed 09/28/22] quetiapine 200 mg tablet 200 mg PO HS 02/09/22 [History Confirmed 09/28/22] sildenafil 100 mg tablet 100 mg PO DAILY PRN Sexual Activity 02/09/22 [History Confirmed 09/28/22] insulin aspart U-100 100 unit/mL (3 mL) subcutaneous pen (Novolog Flexpen U-100 Insulin aspart) 1 sliding scale dose subcut USEASDIRECTD #3 mL 02/11/22 [Rx Confirmed 09/28/22] insulin glargine 100 unit/mL (3 mL) subcutaneous pen (Lantus Solostar U-100 Insulin) 25 unit (0.25 mL) subcut QAM #3 mL 02/11/22 [Rx Confirmed 09/28/22] pen needle,diabetic, disp unit 32 gauge x 1/4", remover and disposal unit #100 ea 02/11/22 [Rx Confirmed 09/28/22] aspirin 81 mg tablet,delayed release 81 mg PO QPM 02/17/22 [History Confirmed 09/28/22] esomeprazole magnesium 40 mg capsule,delayed release (Nexium) 40 mg PO QAM [History Confirmed 09/28/22] ibuprofen 600 mg tablet 600 mg PO TID PRN Pain 02/17/22 [History Confirmed 09/28/22] lisinopril 40 mg tablet 40 mg PO QAM 02/17/22 [History Confirmed 09/28/22] oxycodone 15 mg tablet,crush resistant,extended release 12 hr (OxyContin) 15 mg PO Q12 02/17/22 [History Confirmed 09/28/22] sertraline 100 mg tablet 100 mg PO QAM 02/17/22 [History Confirmed 09/28/22] testosterone cypionate 200 mg/mL intramuscular oil 200 mg IM WK 02/17/22 [History Confirmed 09/28/22] Home Medications Acetaminophen (Acetaminophen 325 Mg Tab) 650 mg PO Q4H PRN PRN Reason: Pain Stop: 10/29/22 18:39 Last Admin: 09/30/22 02:58 Dose: 650 mg Dextrose (Dextrose 50% 50 Ml Syringe) 25 - 50 ml IV UD PRN; Protocol PRN Reason: Hypoglycemia Protocol Stop: 10/28/22 16:42 Esomeprazole Magnesium (Esomeprazole Magnesium [address] Capsule) 40 mg PO BID [facility] Stop: 10/31/22 20:59 Last Admin: 10/02/22 07:46 Dose: 40 mg Fondaparinux (Fondaparinux 2.5 Mg/0.5 Ml Syr) 2.5 mg SQ DAILY [facility] Stop: 10/29/22 08:59 Glucagon (Glucagon For Inj 1 Mg Vial) 1 mg SQ UD PRN; Protocol PRN Reason: Hypoglycemia Protocol Stop: 10/28/22 16:42 Glucose (Glucose 40% Gel 15 Gm Tube) 15 - 30 gm PO UD PRN; Protocol PRN Reason: Hypoglycemia Protocol Stop: 10/28/22 16:42 Glucose (Glucose 10 Tab/Tube) 4 - 8 tab PO UD PRN; Protocol PRN Reason: Hypoglycemia Treatment Stop: 10/28/22 16:42 Insulin Aspart (Insulin Aspart Per Unit) 0 units SC TID@1130,1630,2100 [facility] Stop: 11/01/22 11:29 Insulin Aspart (Insulin Aspart Per Unit) 0 units SC DAILY@0730 [facility] Stop: 11/02/22 07:29 Insulin Glargine (Lantus Per Unit Charge) 25 units SQ DAILY [facility] Stop: 10/31/22 08:59 Last Admin: 10/02/22 07:53 Dose: 25 units Melatonin (Melatonin 3 Mg Tab) 3 mg PO HS PRN PRN Reason: Sleep Stop: 10/31/22 20:34 Last Admin: 10/01/22 21:06 Dose: 3 mg Menthol (Cough Drop (Sugar Free) Sarah 24 Sarah/1 Box) 1 sarah BUCCAL QID PRN PRN Reason: Sore Throat Stop: 10/03/22 15:08 Miscellaneous (Carbohydrates For Hypoglycemia ) 15 - 30 gm PO UD PRN PRN Reason: Hypoglycemia Protocol Stop: 10/28/22 16:42 Miscellaneous Information (Pharmacy Glycemic Mgmt Consult) 1 each N/A UD PRN PRN Reason: Consult Stop: 10/28/22 21:21 Phenol (Chloraseptic 1.4% Soln 180 Ml Btl) 1 sprays MT Q4 PRN PRN Reason: Sore Throat Sertraline HCl (Sertraline Hcl 100 Mg Tablet) 100 mg PO QAM [facility]AMRA Stop: 10/08/22 08:59 Last Admin: 10/02/22 07:46 Dose: 100 mg Sucralfate (Sucralfate 1 Gm/10 Ml Udc) 1 gm PO AC [facility]RA Stop: 10/30/22 16:29 Last Admin: 10/02/22 07:46 Dose: 1 gm PG Care Time/CCT Total # of Minutes Spent Total Time Spent with Patient: Total time spent is greater than 50% in coordination of care (as documented) at patient's floor/unit and/or counseling patient:31 Coding [place] [address] SUB INP/OBS CARE 3/50MIN Patient Type Established History Detailed Exam Detailed Medical Decision Making High Complexity Diagnoses DKA (diabetic ketoacidosis) E11.10 Diabetes mellitus complication detail: without coma Diabetes mellitus type: type 2 Hematemesis K92.0 Anemia D64.9 Elevated troponin R77.8 Time Spent (min) 58 (1) DKA (diabetic ketoacidosis) Diabetes mellitus complication detail: without coma Diabetes mellitus type: type 2 Qualified Code(s): E11.10 - Type 2 diabetes mellitus with ketoacidosis without coma
[2022-10-02] MEDS ORDERED: lisinopril 40 MG TAB PO SCH (10:30)
[2022-10-02] MEDS ORDERED: INSULIN ASPART PER UNIT SC SCH (11:30)
[2022-10-02] MEDS ORDERED: METOPROLOL SUCC 25MG EXT REL TAB PO SCH (12:00)
--- NOTE | 2022-10-02 14:36 | Hospitalist Progress Note ---
Date of Service October 02, 2022 Assessment & Plan (1) DKA (diabetic ketoacidosis): Plan: Now resolved. He will resume his usual diabetic therapy protocol at home. Hopefully he will comply. Diabetic diet. Hyperkalemia: -Potassium 6.1 on admission. -May be falsely elevated due to DKA. Potassium today 3.6 Hematemesis: -Hgb 9.7 on admission, baseline on previous admission 10-12. -May be from DKA induced vomiting. -CT A&P ordered for possible internal GI bleeding. -Pantoprazole drip. -Continue to monitor AM CBC. Elevated Troponin: -Troponin 308 on admission. EKG tachycardic, normal rhythm without any acute ischemic changes. -Most likely due to demand ischemia from hypovolemia. -Improved or resolved Acute Renal Failure: -Baseline creatinine 0.8-1.1 -Creatinine 1.99 on admission. Creatinine 0.65 today and TOD likely secondary to hypovolemia and this is resolved (2) Type 2 diabetes mellitus: Plan: Presented with DKA. Now resolved. He will resume his usual diabetic treatment plan at discharge (3) Anemia: Plan: Hemoglobin is now trending upward. Fecal occult blood is positive. Recommend discontinuing fondaparinux indefinitely. (4) Hyperkalemia: Plan: Treated and resolved. He also was hypokalemic this admission. Serial labs (5) Hematemesis: Plan: Resolved. Hemoglobin is now trending upward. GI consultation appreciated. No EGD done this admission (6) GERD (gastroesophageal reflux disease): Plan: Treated with medical management (7) ARF (acute renal failure): Plan: Resolved. This was acute on chronic kidney disease stage III (8) High anion gap metabolic acidosis: Plan: Due to DKA present on admission. Now resolved Plan The patient left AGAINST MEDICAL ADVICE for home on October 02 Admission and Anticipated Discharge Date Admission Date: September 28, 2022 Subjective The patient was seen earlier today and stated he was going to leave AMA. Lisinopril and Toprol-XL were restarted according to cardiology recommendations. Hemoglobin is trending upward. He is hemodynamically stable. Glucose 110 and controlled. He indeed left AGAINST MEDICAL ADVICE around noon. Review of Systems Review of Systems: Constitutional-no fever or chills ENT-no blurred vision, no double vision, no epistaxis, no sore throat Respiratory-no cough, no wheezing, no shortness of breath Cardiac-no palpitations, no chest pain, no syncope GI-no nausea, vomiting, diarrhea, melena, hematochezia -no urinary retention, no urinary incontinence, no dysuria, no hematuria Musculoskeletal-no joint pain, no muscle tenderness Skin-no bruising, no rashes, no pruritus Neuro-no isolated weakness, no paresthesia, no weakness Psych-no depression, no anxiety Physical Exam Physical Exam: General-alert and oriented x3, no fevers, no chills HEENT-head atraumatic and normocephalic, pupils equal and reactive to light, extraocular muscles intact Neck-no lymphadenopathy or thyromegaly, trachea midline Chest-clear to auscultation percussion. No rales wheezing or rhonchi Cardiac-tachycardic regular rhythm. Normal S1 and S2. Abdomen-normal bowel sounds, nontender, no hepatosplenomegaly Extremities-no cyanosis, clubbing, or edema Neuro-cranial nerves II through XII intact, motor and sensory function within normal limits, strength symmetrical , no focal deficits Psych-normal affect, normal mood Results & Data Results & Data ([facility]) Vital Signs (Past 12 Hours) Vital Signs Temp Pulse Resp BP Pulse Ox O2 Del Method 10/02/22 11:26 36.5 C 104 H 16 163/86 H 96 Room Air 10/02/22 07:47 36.5 C 107 H 20 168/90 H 99 Room Air PG Care Time/CCT Total # of Minutes Spent Total Time Spent with Patient: Total time spent is greater than 50% in coordination of care (as documented) at patient's floor/unit and/or counseling patient: Coding Level of Care Code 47016 SUB INP/OBS CARE 3/50MIN Diagnoses DKA (diabetic ketoacidosis) E11.10 Diabetes mellitus complication detail: without coma Diabetes mellitus type: type 2 Type 2 diabetes mellitus E11.9 Anemia D64.9 Hyperkalemia E87.5 Hematemesis K92.0 GERD (gastroesophageal reflux disease) K21.9 ARF (acute renal failure) N17.9 High anion gap metabolic acidosis E87.2 (1) DKA (diabetic ketoacidosis) Diabetes mellitus complication detail: without coma Diabetes mellitus type: type 2 Qualified Code(s): E11.10 - Type 2 diabetes mellitus with ketoacidosis without coma
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
[2022-10-03] MEDS ORDERED: INSULIN ASPART PER UNIT SC SCH (07:30)
== END 2022-10-02 13:30 | disposition left against medical advice (07) | DRG 637 ==
LOC: ED 15:03 → 1E 20:05 → SUATTDRO 20:05 → 1E 21:19

== ENCOUNTER 2023-01-11 12:39 | Inpatient (IN) ==
--- NOTE | 2023-01-11 14:12 | Emergency Department Note ---
Impression & Plan Bacteremia, Poorly controlled type 1 diabetes mellitus, Diabetic infection of right foot ED Provider Note Provider: Tima Jacobs MD DATE OF SERVICE: 01/11/2023 CHIEF COMPLAINT: Foot infection HISTORY OF PRESENT ILLNESS: Patient is a 62-year-old gentleman history of type 1 diabetes and hypertension presenting here today with concern for an infection of his foot. Broke his foot and had surgery on December [address] [facility] [address] Collier. Patient evidently seen by Dr. Collier on Sunday in the office and had some vomiting. Went to the ER at [facility] and had blood work. Given an IV dose of antibiotics and wound culture taken from the foot. Has an Ex-Fix in place. The grew MSSA and was called about this today. Has been on Keflex at home. reports that the patient has not been the most compliant and walking on it some. Blood sugars in the 200s at home. Signed out of correction on Sunday as he did not like it there. been trying to provide care at home but difficult. Patient questionably bearing some weight on this right foot as he is significant dropfoot on the left. Called by Dr. Collier's office and told to come for IV antibiotics. PAST MEDICAL HISTORY: As noted above MEDICATIONS: Reviewed home medications currently on Keflex SOCIAL HISTORY: , lives at home PHYSICAL EXAM: GENERAL: alert and oriented in no acute distress on stretcher Head: normocephalic and atraumatic EYES: No injection, discharge or icterus. NECK: Trachea midline. ENT: Mucous membranes pink and moist. LUNGS: Airway patent. No retraction HEART: Regular tachycardic rate and rhythm. No chest wall tenderness ABDOMEN: Soft and non-tender, without guarding or rebound. SKIN: Acyanotic, warm, dry EXTREMITIES: Without swelling, tenderness or deformity except for the Ex-Fix in place in the right lower leg and foot. Dorsal right foot wound approximately 8 cm sutured such. There is some trace bloody serous drainage from the pin sites as well as around this wound with erythema surrounding the surgical wound. No crepitus. NEUROLOGICAL: No facial droop or slurred speech. Mild foot drop on the left. Intact gross sensation in the bilateral feet. Patient's laboratory studies and imaging reviewed. Differential includes Cellulitis, abscess, MRSA infection, DVT, necrotizing fasciitis, dermatitis, drug eruption, allergic reaction, as well as other pathol ogies. IMPRESSION/MEDICAL DECISION MAKING: Patient presents with Ex-Fix in place to type I diabetic with wound culture concerning for wound infection. On Keflex. Denies fever. Elevated white blood cell count as well as inflammatory markers. X-ray obtained of the foot but denies significant trauma. Ongoing pain here and is postsurgical from the third with Dr. Collier. Question with the diabetes and the Ex-Fix as well as drainage around the exit sites that this is infected. Given 2 L of normal saline to meet her 30ml/kg sepsis goals. Lactate mildly elevated. Covered initially with Zos yn for antibiotics. Decreased intake reported by and patient as well. Denies abdominal pain or chest pain. Afebrile here. Mildly tachycardic. No evidence of DKA. concerned with care at home and leaving nursing facility now significant care needs at home. Concern for infection of this foot. X-rays with limited evaluation but no evidence of acute bony fracture or osteo. Evidence of inflammatory markers elevated white blood cell count question sepsis. Discussed with Dr. Collier of podiatry. Cultures also show that he had gram-positive cocci in 2 bottles from the when these were collected. Again started on intravenous antibiotics here. Dr. Collier states he will come and see the patient later and possibly remove some pins. Discussed with the hospitalist for further care here. DIAGNOSIS: Right diabetic foot infection, bacteremia DISPOSITION: Hospitalist will evaluate Patient was agreeable with this plan. Past Med/Surg History Medical History (Updated 01/11/23 @ 15:26 by Tima Jacobs M.D.) GERD (gastroesophageal reflux disease) Glaucoma History of seizure last seizure "couple years ago" -- d/t hypoglycemia Osteoarthritis Surgical History History of appendectomy History of knee surgery Rt History of tonsillectomy Family History Other No family history of adverse response to anesthesia Social History Smoking Status: Current some day smoker Second Hand Exposure: No; Hx Alcohol Use: Yes Alcohol type: hard liquor Hx Substance Use: Yes Last Used Substance: Days (ago) Last Used Substance Other:: months ago Substance Use Type Other:: medical Preferred Language: Armenian Communication Ability: Impaired Materials Management Clerk Required: No Beliefs That Will Affect Care: Scientology Current Living Situation: Spouse Feels Safe at Home: Yes Assistive Devices: None Home Meds Home Medications Medication Instructions Recorded Confirmed Medical Marijuana 1 dose inhalation DIRECTED PRN 02/06/22 12/22/22 NEEDED oxycodone 15 mg tablet 15 mg PO Q6H PRN Breakthrough Pain 02/09/22 12/21/22 sildenafil 100 mg tablet 100 mg PO DAILY PRN Sexual Activity 02/09/22 12/22/22 aspirin 81 mg tablet,delayed 81 mg PO QPM 02/17/22 12/22/22 release esomeprazole magnesium 40 mg 40 mg PO QAM 02/17/22 12/22/22 capsule,delayed release (Nexium) ibuprofen 600 mg tablet 600 mg PO TID PRN Pain 02/17/22 12/22/22 oxycodone 15 mg tablet,crush 15 mg PO Q12 02/17/22 12/22/22 resistant,extended release 12 hr (OxyContin) sertraline 100 mg tablet 100 mg PO QAM 02/17/22 12/22/22 testosterone cypionate 200 mg/mL 200 mg IM WK 02/17/22 12/22/22 intramuscular oil lisinopril 40 mg tablet 20 mg PO QAM 11/10/22 12/22/22 atorvastatin 40 mg tablet 40 mg PO DAILY 12/22/22 12/22/22 insulin aspart U-100 100 unit/mL See Rx Instructions subcut TIDM 12/22/22 12/22/22 (3 mL) subcutaneous pen (Novolog FlexPen U-100 Insulin aspart) Previous Rx's Medication Instructions Recorded insulin glargine 100 unit/mL (3 25 unit (0.25 mL) subcut QAM #3 mL 02/11/22 mL) subcutaneous pen (Lantus Solostar U-100 Insulin) pen needle,diabetic, disp unit 32 #100 ea 02/11/22 gauge x 1/4", remover and disposal unit Omnipod 5 G6 Intro Kit (Gen 5) #1 12/07/22 subcutaneous cartridge with controller (insulin pump cart,auto,BT-cntr) Omnipod 5 G6 Pods (Gen 5) (insulin #10 12/07/22 pump cart,automated,BT) Results & Data (ED) Vital Signs Vital Signs - 24 hr 01/11/23 12:55 01/11/23 14:49 Temperature 36.9 C Temperature Source Temporal Artery Scan Pulse Rate 110 H 92 H Pulse Rhythm Regular Pulse Strength Normal Respiratory Rate 18 Respiratory Effort / Characteristics Non-Labored Spontaneous Respiratory Depth Normal Respiratory Pattern Regular Blood Pressure 156/86 H Blood Pressure Mean 109 Blood Pressure Position Sitting Pulse Oximetry 100 Oxygen Delivery Method Room Air Sepsis Recent Fever Within 48 Hours Yes Sepsis New/Unexplained Change in Mental Status No Sepsis Action Taken by Nursing No Action Required Laboratory Data 01/11/23 13:24 01/11/23 13:24 Lab Results 01/11/23 01/11/23 01/11/23 Range/Units 13:24 13:24 13:24 WBC 14.11 H (4.8-10.8) K/ul RBC 3.40 L (4.70-6.10) M/uL Hgb 10.1 L (14.0-18.0) g/dl Hct 30.3 L (42.0-52.0) % MCV 89.1 (80.0-100.0) fL MCH 29.7 (25.0-34.0) pg MCHC 33.3 (32.0-36.0) g/dL RDW Std Deviation 41.4 (36.4-46.3) fL RDW Coeff of Denise 12.6 (11.5-14.5) % Plt Count 602 H (130-400) K/uL MPV 9.3 L (9.4-12.4) fL Immature Gran % (Auto) 0.7 % Neut % (Auto) 85.6 % Lymph % (Auto) 5.2 % [place] % (Auto) 7.0 % Eos % (Auto) 1.1 % Baso % (Auto) 0.4 % Neut # (Auto) 12.08 H (1.40-6.50) K/uL Lymph # (Auto) 0.74 L (1.2-3.4) K/uL [place] # (Auto) 0.99 H (0.11-0.59) K/uL Eos # (Auto) 0.15 (0-0.50) K/uL Baso # (Auto) 0.05 (0-0.2) K/uL Immature Gran # (Auto) 0.10 (0.01-0.20) K/uL PT 10.9 (9.0-12.0) Seconds INR 1.0 (0.9-1.1) Sodium 137 (136-145) mmol/L Potassium 3.7 (3.5-5.1) mmol/L Chloride 105 (98-107) mmol/L Carbon Dioxide 21 (21-32) mmol/L Anion Gap 11 (3-11) BUN 21 (6-23) mg/dl Creatinine 1.33 (0.6-1.4) mg/dl Est Cr Clr Drug Dosing 53.8 ml/min Est GFR ( Amer) 65.9 ml/min Est GFR (Non-Af Amer) 56.9 ml/min BUN/Creatinine Ratio 15.8 (10-20) Glucose 185 H (70-99(Fasting)) mg/dl Lactate (0.4-2.0) mmol/L Calcium 8.9 (8.6-10.3) mg/dl Total Bilirubin 0.2 (0.2-1.0) mg/dl C-Reactive Protein 21.61 H (0-0.5) mg/dl Albumin 3.2 L (3.4-5.0) gm/dl Procalcitonin (0-0.5) ng/ml SARS-CoV-2, RNA, NAAT (NEGATIVE) 01/11/23 01/11/23 01/11/23 Range/Units 13:24 14:34 Unknown WBC (4.8-10.8) K/ul RBC (4.70-6.10) M/uL Hgb (14.0-18.0) g/dl Hct (42.0-52.0) % MCV (80.0-100.0) fL MCH (25.0-34.0) pg MCHC (32.0-36.0) g/dL RDW Std Deviation (36.4-46.3) fL RDW Coeff of Denise (11.5-14.5) % Plt Count (130-400) K/uL MPV (9.4-12.4) fL Immature Gran % (Auto) % Neut % (Auto) % Lymph % (Auto) % [place] % (Auto) % Eos % (Auto) % Baso % (Auto) % Neut # (Auto) (1.40-6.50) K/uL Lymph # (Auto) (1.2-3.4) K/uL [place] # (Auto) (0.11-0.59) K/uL Eos # (Auto) (0-0.50) K/uL Baso # (Auto) (0-0.2) K/uL Immature Gran # (Auto) (0.01-0.20) K/uL PT (9.0-12.0) Seconds INR (0.9-1.1) Sodium (136-145) mmol/L Potassium (3.5-5.1) mmol/L Chloride (98-107) mmol/L Carbon Dioxide (21-32) mmol/L Anion Gap (3-11) BUN (6-23) mg/dl Creatinine (0.6-1.4) mg/dl Est Cr Clr Drug Dosing ml/min Est GFR ( Amer) ml/min Est GFR (Non-Af Amer) ml/min BUN/Creatinine Ratio (10-20) Glucose (70-99(Fasting)) mg/dl Lactate 2.8 H* (0.4-2.0) mmol/L Calcium (8.6-10.3) mg/dl Total Bilirubin (0.2-1.0) mg/dl C-Reactive Protein (0-0.5) mg/dl Albumin (3.4-5.0) gm/dl Procalcitonin 0.40 (0-0.5) ng/ml SARS-CoV-2, RNA, NAAT NEGATIVE (NEGATIVE) Imaging Data Radiologist's Impression: Foot X-Ray 01/11/23 14:58 XR foot RT 2V HISTORY: 62 years-old Male Status post with surgery Ex-Fix, w/ infection COMPARISON: 12/21/2022 TECHNIQUE: 2 views of the right foot FINDINGS: Limited exam secondary to extensive metallic bracing hardware. Pinning/K wires are noted within the midfoot and hindfoot. Acute mid foot fractures are again noted which are difficult to evaluate. Mild osteoarthritis with arterial calcifications. Soft tissue swelling about the foot. IMPRESSION: Soft tissue swelling with postoperative changes as above. Exam is limited secondary to external fixation hardware. ACT 112: Negative or not required by law. The above report was generated using voice recognition software. It may contain grammatical, syntax or spelling errors. Electronically signed by: Freddie Trinidad M.D. 01/11/2023 3:32 PM Discharge Plan Visit Data Chief Complaint: Infection Stated Complaint: STAFF INFECTION, MEDICATON REQUEST, DR REF ED Provider: Tima Jacobs ED Midlevel Provider: Lebron [facility] Discharge Problem: Bacteremia, Poorly controlled type 1 diabetes mellitus, Diabetic infection of right foot Patient Disposition: Being Evaluated by Hospitalist Forms Stand Alone Forms: [facility] Prescriptions Prescriptions: No Action (DME) Omnipod 5 G6 Intro Kit (Gen 5) Cartridge See Rx Instructions .Route Qty: 1 0RF Rx Instructions: Change pod every 3 days (DME) Omnipod 5 G6 Pods (Gen 5) Cartridge See Rx Instructions .Route Qty: 10 11RF Rx Instructions: Change pod every 3 days atorvastatin 40 mg tablet 40 mg PO DAILY Medical Marijuana 1 dose inhalation DIRECTED PRN (Reason: NEEDED) Rx Instructions: PT'S SPOUSE NOT SURE HOW OR HOW OFTEN USES. sildenafil 100 mg tablet 100 mg PO DAILY PRN (Reason: Sexual Activity) Rx Instructions: TAKE 1 HOUR PRIOR TO SEXUAL ACTIVITY. MAX 1 DOSE PER 24 HOURS oxycodone 15 mg Tablet 15 mg PO Q6H PRN (Reason: Breakthrough Pain) insulin glargine [Lantus Solostar U-100 Insulin] 100 unit/mL (3 mL) insulin pen 25 unit subcut QAM Qty: 3 3RF Patient Comments: 1/2 dose (DME) pen needle,diabetic, disp unit 32 gauge x 1/4" needle See Rx Instructions .Route Qty: 100 0RF Rx Instructions: As directed testosterone cypionate 200 mg/mL oil 200 mg IM WK Rx Instructions: on hold aspirin 81 mg Tablet,Delayed Release (Dr/Ec) 81 mg PO QPM esomeprazole magnesium [Nexium] 40 mg capsule,delayed release(DR/EC) 40 mg PO QAM ibuprofen 600 mg tablet 600 mg PO TID PRN (Reason: Pain) oxycodone [OxyContin] 15 mg tablet,oral only,ext.rel.12 hr 15 mg PO Q12 sertraline 100 mg tablet 100 mg PO QAM lisinopril 40 mg tablet 20 mg PO QAM insulin aspart U-100 [Novolog FlexPen U-100 Insulin] 100 unit/mL (3 mL) insuli n pen See Rx Instructions subcut TIDM Rx Instructions: subcutaneously three times daily with meals; Per sliding scale TDD 30 units Referrals Referrals: Mohit Rodriguez MD [Primary Care Provider] -
[2023-01-11 14:23] LABS: Basophils # (auto) 0.05 K/uL (0-0.2); Basophils % (auto) 0.4 %; Eosinophils # (auto) 0.15 K/uL (0-0.50); Eosinophils % (auto) 1.1 %; Hematocrit (blood only) 30.3 % (42.0-52.0); Hemoglobin 10.1 g/dl (14.0-18.0); Immature Granulocytes % (auto) 0.7 %; Lymphocytes # (auto) 0.74 K/uL (1.2-3.4); Lymphocytes % (auto) 5.2 %; Mean Corpuscular Hemoglobin 29.7 pg (25.0-34.0); Mean Corpuscular Hgb Conc 33.3 g/dL (32.0-36.0); Mean Corpuscular Volume 89.1 fL (80.0-100.0); Mean Platelet Volume 9.3 fL (9.4-12.4); Monocytes # (auto) 0.99 K/uL (0.11-0.59); Neutrophils # (auto) 12.08 K/uL (1.40-6.50); Neutrophils % (auto) 85.6 %; Platelet Count 602 K/uL (130-400); RDW Coefficient of Variation 12.6 % (11.5-14.5); RDW Standard Deviation 41.4 fL (36.4-46.3); White Blood Count 14.11 K/ul (4.8-10.8)
[2023-01-11 14:35] LABS: Prothrombin Time 10.9 Seconds (9.0-12.0)
[2023-01-11 14:44] LABS: Albumin Level 3.2 gm/dl (3.4-5.0); Anion Gap 11 (3-11); Bilirubin,Total 0.2 mg/dl (0.2-1.0); Calcium 8.9 mg/dl (8.6-10.3); Carbon Dioxide 21 mmol/L (21-32); Chloride 105 mmol/L (98-107); Potassium 3.7 mmol/L (3.5-5.1); Sodium 137 mmol/L (136-145)
[2023-01-11] MEDS ORDERED: LACTATED RINGER'S 1,000 ML IV ONE (14:45)
[2023-01-11 14:50] LABS: BUN Creatinine Ratio 15.8 (10-20); Blood Urea Nitrogen 21 mg/dl (6-23); C Reactive Protein 21.61 mg/dl (0-0.5); Creatinine Clr Calc Pharmacy 53.8 ml/min; Est GFR (African American) 65.9 ml/min; Est GFR (Non-African American) 56.9 ml/min; Glucose 185 mg/dl (70-99(Fasting))
[2023-01-11] MEDS ORDERED: SODIUM CHLORIDE 0.9% 1000ML 1,000 ML IV SCH (14:58)
[2023-01-11] MEDS ORDERED: PIPERACILLIN/TAZOBACTAM 4.5 GM/120 ML BAG IV ONE (15:01)
[2023-01-11] MEDS ORDERED: SODIUM CHLORIDE 0.9% 1000ML 1,000 ML IV ONE (15:25)
--- NOTE | 2023-01-11 15:34 | XRay Report ---
XR foot RT 2V HISTORY: 62 years-old Male Status post with surgery Ex-Fix, w/ infection COMPARISON: 12/21/2022 TECHNIQUE: 2 views of the right foot FINDINGS: Limited exam secondary to extensive metallic bracing hardware. Pinning/K wires are noted within the m idfoot and hindfoot. Acute mid foot fractures are again noted which are difficult to evaluate. Mild o steoarthritis with arterial calcifications. Soft tissue swelling about the foot. IMPRESSION: Soft tissue swelling with postoperative changes as above. Exam is limited secondary to ex ternal fixation hardware. ACT 112: Negative or not required by law. The above report was generated using voice recognition software. It may contain grammatical, syntax o r spelling errors. Electronically signed by: Freddie Trinidad M.D. 01/11/2023 3:32 PM
[2023-01-11] MEDS ORDERED: ceFAZolin 2000MG 2,000 MG/15 ML SYR IV STA (15:36)
--- NOTE | 2023-01-11 15:44 | History & Physical Report ---
Date of Service January 11, 2023 Assessment & Plan (1) MSSA bacteremia: Plan: -Admit to med/tele -The patient is currently afebrile, hemodynamically stable, and stable on RA -Received 3L of IV fluids, a dose of Zosyn, and repeat blood cultures in the ED -Initial lactate was 2.8, will get STAT repeat to monitor for clearance -Confirmed blood and wound cultures from [facility] were positive for MSSA and MRSA negative >Sensitivities show him to be pansensitive -Will continue with Cefazolin 2gm IV q8h moving forward -Will consult infectious disease and obtain TTE tomorrow for evaluation of endocarditis -Dr. Collier has been consulted and will be evaluating the patient shortly, at this time there are no emergent OR plan -The patient will lkely need PICC placement prior to DC, this could be complicated with his current history of Opioid abuse -Will start Sub-Q lovenox for DVT PPX -AM CBC, CMP, PT/INR (2) Surgical site infection: Plan: -See MSSA bacteremia (3) Opioid abuse: Plan: -Patient has a long history of chronic pain from previous back injury per his -Was reportedly taking Oxcotin 15 mg q12h until 1-2 weeks ago, however, review of his PDMP shows his last fill to be in March of 2022 -He has been taking his 15 mg PO Oxycodone q4-6 hours instead of the q8h as prescribed -Pain control may be difficult with him, for now will start with 650 mg PO Tylenol q6h, and 3 mg IV morphine q3h prn pain 4,5,6 + -If pain control is difficult during his admission would recommend pain management consult prior to discharge (4) Thrombocytosis: Plan: -Platelets noted to be 602 today -Liver function WNL, patient is asymptomatic -Could be secondary due to his recent procedure -Continue to trend CBC with diff for now (5) Depression: Plan: -Continue sertraline (6) Poorly controlled type 1 diabetes mellitus: Plan: -Monitor BSG q4h for now, goal is 110-140 -Will decrease basal from home dose of 25 qam to 20 to avoid hypoglycemia -CF of 50 and CR of 15 -Pharmacy glycemic consult placed -Continue to monitor (7) Hypertension: Plan: -Was taken off of lisinopril recently for orthostatic -Would continue to monitor for now to see if he needs to be restated on an antihypertensive prior to discharge (8) Dyslipidemia: Plan: -Continue atorvastatin Plan The patient was discussed with Dr. Romero at the time of the admission History of Present Illness Chief Complaint: Concern for foot infection Primary Care Provider: Mohit Rodriguez MD Austen is a 62 year old male with a PMH significant for poorly controlled DM I, HTN, hyperlipidemia, memory deficit, chronic pain with opioid abuse, and recent right foot fractures S/P external fixation by Dr. Collier at [facility] at the beginning of the month, who was sent to the ED today at the recommendation of Juanjo Collier for possible right foot infection. Per the ED staff, the patient was seen in Dr. Collier's office on 01/09 and was noted to have nausea and vomiting with signs of infection at his surgical site. Cultures were taken and he was started on Keflex at that time. The patient was called today due to wound and blood cultures growing pansensitive MSSA, Dr. Collier recommenced he come to the ED for further assessment and IV antibiotics. In the ED the patient was found to be afebrile, hemodynamically stable, and stable on RA. Labs were remarkable for a leukocytosis of 14 with left shift of 12, platelet count of 602, lactate of 2.8, CRP of 21, and covid 19 negative. Xray of the right foot was read as "Soft tissue swelling with postoperative changes as above. Exam is limited secondary to external fixation hardware". Prior to admission the patient was given a dose of zosyn and a total of 3L IV fluids. At the time of the exam the patient was lying in bed in no acute distress with his sitting bedside. They state that the patient was initially discharged to a SNF after his surgery as he is supposed to be NWB on the right foot but also has a history of foot drop in the left foot. He signed himself out AMA on 01/05 and has been at home since. Since being home the patient had a had two falls due to ambulatory dysfunction with his external fixator. He fell backwards once and forwards once, he denies losing consciousness either time. They confirm that he was having nausea/vomiting on 01/09 but this has resolved since starting the Keflex. He denies recent fevers, chills, chest pain, SOB, abd pain, nausea, vomiting, diarrhea, dysuria, hematuria since being home. Due to chronic pain the patient is typically on 15 mg q12h of Oxycotin and was prescribed 15 mg PO Oxycodone q8h prn pain since his procedure. He has reportedly run out of his Oxycotin and has not yet been able to get an appointment to have it refilled. He has been taking the oxycodone q4-6h as he states that it does not last long enough for the full 8 hours. He has had previous issues with syncope due to orthostatic hypotension and was recently taken off his Lisinopril for this. His states that the SNF had started the patient on metoprolol but they have not been continuing it since he left. I explained that due to his gram positive bacteremia we will need to obtain an echo to evaluate for endocarditis and he will need approximately 6 weeks of IV antibiotics. We discussed code status, the patient is a full code and would want his to make medical decisions for him if he cannot make them himself. Please refer to Dr. Romero's attestation for any changes to the treatment plan Allergies Allergy/AdvReac Type Severity Reaction Status Date / Time pantoprazole [From Protonix] AdvReac Vomiting Verified 01/11/23 16:16 Home Medications Medication Instructions Recorded Confirmed Type Medical Marijuana 1 dose inhalation DIRECTED PRN 02/06/22 01/11/23 History NEEDED oxycodone 15 mg tablet 15 mg PO Q6H PRN Breakthrough Pain 02/09/22 01/11/23 History sildenafil 100 mg tablet 100 mg PO DAILY PRN Sexual Activity 02/09/22 01/11/23 History insulin glargine 100 unit/mL (3 25 unit (0.25 mL) subcut QAM #3 mL 02/11/22 01/11/23 Rx mL) subcutaneous pen (Lantus Solostar U-100 Insulin) pen needle,diabetic, disp unit 32 #100 ea 02/11/22 01/11/23 Rx gauge x 1/4", remover and disposal unit aspirin 81 mg tablet,delayed 81 mg PO QPM 02/17/22 01/11/23 History release esomeprazole magnesium 40 mg 40 mg PO QAM 02/17/22 01/11/23 History capsule,delayed release (Nexium) ibuprofen 600 mg tablet 600 mg PO TID PRN Pain 02/17/22 01/11/23 History oxycodone 15 mg tablet,crush 15 mg PO Q12 02/17/22 01/11/23 History resistant,extended release 12 hr (OxyContin) sertraline 100 mg tablet 100 mg PO QAM 02/17/22 01/11/23 History testosterone cypionate 200 mg/mL 200 mg IM WK 02/17/22 01/11/23 History intramuscular oil Omnipod 5 G6 Intro Kit (Gen 5) #1 ea 12/07/22 01/11/23 Rx subcutaneous cartridge with controller (insulin pump cart,auto,BT-cntr) Omnipod 5 G6 Pods (Gen 5) (insulin #10 ea 12/07/22 01/11/23 Rx pump cart,automated,BT) atorvastatin 40 mg tablet 40 mg PO DAILY 12/22/22 01/11/23 History insulin aspart U-100 100 unit/mL See Rx Instructions subcut TIDM 12/22/22 01/11/23 History (3 mL) subcutaneous pen (Novolog FlexPen U-100 Insulin aspart) Past Med/Surg History Medical History (Updated 01/11/23 @ 16:44 by Bin Parks PA-C) GERD (gastroesophageal reflux disease) Glaucoma History of seizure last seizure "couple years ago" -- d/t hypoglycemia Osteoarthritis Surgical History History of appendectomy History of knee surgery Rt History of tonsillectomy Family History Other No family history of adverse response to anesthesia Social History Smoking Status: Never smoker Second Hand Exposure: No; Hx Alcohol Use: Yes Alcohol type: beer Hx Substance Use: No Preferred Language: Occitan Communication Ability: Impaired Aircraft Mechanic Required: No Beliefs That Will Affect Care: None Current Living Situation: Spouse Feels Safe at Home: Yes Assistive Devices: Denture - Upper, Glasses, Walker and Wheelchair Physical Exam Physical Exam: Physical Exam: General: In no acute distress, stated age, well-nourished, good hygiene HEENT: Normocephalic, atraumatic, no scleral icterus, pupils around round, symmetrical, and reactive to light, moist mucus membranes, trachea midline, no thyromegaly Chest/Pulm: No respiratory distress, symmetrical chest expansion, clear breath sounds throughout Cardiac: RRR, no murmurs noted Abdomen: Negative for ascites and bruising, normoactive bowel sounds, soft, non-tender to palpation throughout Musculoskeletal: Patient with external fixator in place on the lower half of the RLE, the right foot, ankle, and sibley are swollen, erythematous, and there is pustulous drainage noted at the pin insertion sites Extremities: Radial, dorsalis pedis, and posterior tibial pulses are intact and symmetrical Skin: As described above Neuro: Alert and oriented to person, place, month, year, and president, no focal defects, CN II-XII tested and intact, baseline left foot drop noted Psych: No acute distress, calm and cooperative during the exam Results & Data Results & Data Vital Signs (Past 12 Hours) Vital Signs Temp Pulse Resp BP Pulse Ox O2 Del Method 01/11/23 14:49 92 H 01/11/23 12:55 36.9 C 110 H 18 156/86 H 100 Room Air Laboratory Results Abnormal lab results 01/11/23 01/11/23 01/11/23 Range/Units 13:24 13:24 14:34 WBC 14.11 H (4.8-10.8) K/ul RBC 3.40 L (4.70-6.10) M/uL Hgb 10.1 L (14.0-18.0) g/dl Hct 30.3 L (42.0-52.0) % Plt Count 602 H (130-400) K/uL MPV 9.3 L (9.4-12.4) fL Neut # (Auto) 12.08 H (1.40-6.50) K/uL Lymph # (Auto) 0.74 L (1.2-3.4) K/uL Humphreys # (Auto) 0.99 H (0.11-0.59) K/uL Glucose 185 H (70-99(Fasting)) mg/dl Lactate 2.8 H* (0.4-2.0) mmol/L Alkaline Phosphatase 155 H (34-104) U/L C-Reactive Protein 21.61 H (0-0.5) mg/dl Albumin 3.2 L (3.4-5.0) gm/dl Albumin/Globulin Ratio 0.8 L (0.9-2) Lipase < 3 L (11-82) U/L Diagnostic Findings Foot X-Ray 01/11/23 14:58 XR foot RT 2V HISTORY: 62 years-old Male Status post with surgery Ex-Fix, w/ infection COMPARISON: 12/21/2022 TECHNIQUE: 2 views of the right foot FINDINGS: Limited exam secondary to extensive metallic bracing hardware. Pinning/K wires are noted within the midfoot and hindfoot. Acute mid foot fractures are again noted which are difficult to evaluate. Mild osteoarthritis with arterial calcifications. Soft tissue swelling about the foot. IMPRESSION: Soft tissue swelling with postoperative changes as above. Exam is limited secondary to external fixation hardware. ACT 112: Negative or not required by law. The above report was generated using voice recognition software. It may contain grammatical, syntax or spelling errors. Electronically signed by: Freddie Trinidad M.D. 01/11/2023 3:32 PM ECG Additional Comments: None available at the time of the admission, will obtain one STAT Code Status & VTE Plan Code Status Full code Supervising Physician Co-Signing Physician Notes I personally saw and examined the patient. I verified all martinez points and agree with Bin Parks PA-C with the following exceptions and/or additions: 62 year old male with right foot external fixation device with dorsal foot cellulitis and pus coming from some of the pins. MSSA on 1/2 blood cultures from 01/09 and deep wound culture. O/E No peripheral stigmata of infective endocarditis, HS RRR, no murmurs, Chest CTAB, Abdo SNT, right dorsal foot cellulitis not extending beyond ankle with pus coming from multiple pins A/P MSSA bacteremia - Cefazolin 2g IV q8h, repeat blood cultures, ID consult, TTE. Source control per podiatry, likely to need > 6 weeks of IV antibiotics given poor source control. Unable to get US arterial doppler due to external fixator in place. PG Care Time/CCT Total # of Minutes Spent Total Time Spent with Patient: Total time spent is greater than 50% in coordination of care (as documented) at patient's floor/unit and/or counseling patient: [place] [address] INT INP/OBS CARE MIN Patient Type Established Medical Decision Making High Complexity Diagnoses MSSA bacteremia R78.81; B95.61 Surgical site infection T81.49XA Opioid abuse F11.10 Thrombocytosis D75.839 Depression F32.A Poorly controlled type 1 diabetes mellitus E10.65 Hypertension I10 Dyslipidemia E78.5
[2023-01-11] MEDS ORDERED: CARBOHYDRATES FOR HYPOGLYCEMIA PO PRN (15:47)
[2023-01-11] MEDS ORDERED: GLUCAGON FOR INJ 1 MG VIAL SQ PRN (15:47)
[2023-01-11] MEDS ORDERED: GLUCOSE 40% GEL 15 GM TUBE PO PRN (15:47)
[2023-01-11] MEDS ORDERED: PHARMACY GLYCEMIC MGMT CONSULT PRN (15:47)
[2023-01-11] MEDS ORDERED: GLUCOSE 10 TAB/TUBE PO PRN (15:47)
[2023-01-11] MEDS ORDERED: FAMOTIDINE 20MG IV PUSH 20 MG/5 ML SYR IV STA (16:12)
[2023-01-11 16:15] LABS: Alanine Aminotransferase 15 U/L (7-52); Albumin Globulin Ratio 0.8 (0.9-2); Alkaline Phosphatase 155 U/L (34-104); Aspartate Aminotransferase 13 U/L (13-39); Globulin 3.9 gm/dl (2.5-4.0); Lipase < 3 U/L (11-82); Total Protein 7.1 gm/dl (6.0-8.3)
[2023-01-11] MEDS ORDERED: oxyCODONE HCL IR 5 MG TAB (IMMEDIATE RELEASE) PO PRN (17:00)
[2023-01-11] MEDS: ACETAMINOPHEN 325 MG TAB PO SCH ×2 (17:34→21:38)
[2023-01-11] MEDS: MoRPHine SULFATE 4 MG/ML 1 ML CARP\\VIAL IV PRN ×2 (17:37→22:36)
[2023-01-11] MEDS: INSULIN ASPART PER UNIT CHARGE SC SCH ×2 (18:19→21:38)
[2023-01-11] MEDS ORDERED: ENOXAPARIN 0.5 MG/KG SQ SCH (21:00)
[2023-01-11] MEDS ORDERED: LANTUS PER UNIT CHARGE SQ SCH (21:00)
[2023-01-11] MEDS: ceFAZolin 2000MG 2,000 MG/15 ML SYR IV SCH (21:08)
[2023-01-11] MEDS: ASPIRIN 81 MG ECTAB PO SCH (21:08)
[2023-01-11] MEDS: ENOXAPARIN INJ 30 MG/0.3 ML SYR SQ SCH (21:08)
--- NOTE | 2023-01-11 21:13 | Orthopedic Consultation ---
Date of Consultation January 11, 2023 Assessment & Plan (1) Bacteremia: Patient seen, evaluated, and treated. Pin sites cleansed. External fixator intact. Awaiting blood cultures. Will continue to follow while in house. (2) Diabetic infection of right foot: (3) Surgical site infection: History of Present Illness Attending Physician: Mohit Romero MD History of Present Illness Patient is a 62 year old male seen at [facility] ED for left foot infection possible bacteremia. Patient has a past medical history of depression, type I diabetes, right foot drop, TOD, anemia, anxiety, DKA, GERD, GI bleed, glaucoma, history of seizure, hyperkalemia, hyperosmolar hyperglycemic state, hypokalemia, hyperthermia, metabolic acidosis, metabolic encephalopathy, osteoarthritis, septic shock, severe sepsis, ventricular, arrhythmia. He presents to [facility] emergency department by private vehicle with who helps with history and care. Patient is status post day #17 lisfranc /charcot foot reduction with application of external fixation. Patient was transferred to post surgical care where he was observed ambulating against medical advice. Patient later checked out of facility against medical advice. Patient was seen in office on 01/09/23 and noted general malaise. He was sent to ED where blood cultures grew staph aureus. Patient was then advised to present to ED for treatment. Allergies Allergy/AdvReac Type Severity Reaction Status Date / Time pantoprazole [From Protonix] AdvReac Vomiting Verified 01/11/23 16:16 Home Medications Medication Instructions Recorded Confirmed Type Medical Marijuana 1 dose inhalation DIRECTED PRN 02/06/22 01/11/23 History NEEDED oxycodone 15 mg tablet 15 mg PO Q6H PRN Breakthrough Pain 02/09/22 01/11/23 History sildenafil 100 mg tablet 100 mg PO DAILY PRN Sexual Activity 02/09/22 01/11/23 History insulin glargine 100 unit/mL (3 25 unit (0.25 mL) subcut QAM #3 mL 02/11/22 01/11/23 Rx mL) subcutaneous pen (Lantus Solostar U-100 Insulin) pen needle,diabetic, disp unit 32 #100 ea 02/11/22 01/11/23 Rx gauge x 1/4", remover and disposal unit aspirin 81 mg tablet,delayed 81 mg PO QPM 02/17/22 01/11/23 History release esomeprazole magnesium 40 mg 40 mg PO QAM 02/17/22 01/11/23 History capsule,delayed release (Nexium) ibuprofen 600 mg tablet 600 mg PO TID PRN Pain 02/17/22 01/11/23 History oxycodone 15 mg tablet,crush 15 mg PO Q12 02/17/22 01/11/23 History resistant,extended release 12 hr (OxyContin) sertraline 100 mg tablet 100 mg PO QAM 02/17/22 01/11/23 History testosterone cypionate 200 mg/mL 200 mg IM WK 02/17/22 01/11/23 History intramuscular oil Omnipod 5 G6 Intro Kit (Gen 5) #1 ea 12/07/22 01/11/23 Rx subcutaneous cartridge with controller (insulin pump cart,auto,BT-cntr) Omnipod 5 G6 Pods (Gen 5) (insulin #10 ea 12/07/22 01/11/23 Rx pump cart,automated,BT) atorvastatin 40 mg tablet 40 mg PO DAILY 12/22/22 01/11/23 History insulin aspart U-100 100 unit/mL See Rx Instructions subcut TIDM 12/22/22 01/11/23 History (3 mL) subcutaneous pen (Novolog FlexPen U-100 Insulin aspart) Patient History Medical History (Updated 01/11/23 @ 16:44 by Bin Parks PA-C) GERD (gastroesophageal reflux disease) Glaucoma History of seizure last seizure "couple years ago" -- d/t hypoglycemia Osteoarthritis Surgical History History of appendectomy History of knee surgery Rt History of tonsillectomy Family History Other No family history of adverse response to anesthesia Social History Smoking Status: Never smoker Second Hand Exposure: No; Hx Alcohol Use: Yes Alcohol type: beer Hx Substance Use: No Preferred Language: Yoruba Communication Ability: Impaired Color Receiver Required: No Beliefs That Will Affect Care: None Current Living Situation: Spouse Feels Safe at Home: Yes Assistive Devices: Denture - Upper, Glasses, Walker and Wheelchair Review of Systems Review of Systems: All systems reviewed & are unremarkable except as noted in HPI & below Physical Exam Eyes: normal visual ortega by confrontation Neck: trachea midline Respiratory: normal respiratory effort Cardiovascular: Rate/Rhythm: regular rate and regular rhythm Musculoskeletal: left foot drop Skin: External fixation in place. There is serous drainage from multiple pin sites. Neurologic: Absent epicritic sensation. Psychiatric: Orientation: alert and oriented x 3 Results & Data Vital Signs (Past 12 Hours) Vital Signs Temp Pulse Pulse Resp BP BP Pulse Ox 01/11/23 18:22 01/11/23 18:21 36.8 C 112 H 18 182/82 H 95 01/11/23 17:00 104 H 13 178/100 H 01/11/23 16:30 103 H 17 181/93 H 98 01/11/23 16:00 101 H 17 183/96 H 100 01/11/23 15:30 99 H 15 174/93 H 100 01/11/23 15:00 98 H 15 165/91 H 100 01/11/23 16:47 106 H 18 181/93 H 100 01/11/23 14:49 92 H 01/11/23 12:55 36.9 C 110 H 18 156/86 H 100 Pulse Ox O2 Del Method O2 Del Method 01/11/23 18:22 95 Room Air 01/11/23 18:21 Room Air 01/11/23 17:00 01/11/23 16:30 01/11/23 16:00 01/11/23 15:30 01/11/23 15:00 01/11/23 16:47 Room Air 01/11/23 14:49 01/11/23 12:55 Room Air
[2023-01-11] MEDS: MELATONIN 3 MG TAB PO PRN (21:38)
[2023-01-11] MEDS ORDERED: ONDANSETRON INJ 2 MG/ML 2 ML VIAL IV PRN (21:50)
[2023-01-12] MEDS: MoRPHine SULFATE 4 MG/ML 1 ML CARP\\VIAL IV PRN ×8 (01:40→21:18)
[2023-01-12] MEDS: DEXTROSE 50% 50 ML SYRINGE IV PRN (03:05)
[2023-01-12] MEDS ORDERED: HYDROmorphone INJ 0.5 MG/0.5 ML SYR IV STA (03:16)
[2023-01-12] MEDS: ACETAMINOPHEN 325 MG TAB PO SCH ×4 (03:58→23:15)
[2023-01-12] MEDS: ceFAZolin 2000MG 2,000 MG/15 ML SYR IV SCH ×3 (06:22→23:18)
[2023-01-12 07:42] LABS: Basophils # (auto) 0.07 K/uL (0-0.2); Basophils % (auto) 0.5 %; Eosinophils # (auto) 0.25 K/uL (0-0.50); Eosinophils % (auto) 1.8 %; Hematocrit (blood only) 22.4 % (42.0-52.0); Hemoglobin 7.3 g/dl (14.0-18.0); Immature Granulocytes # (auto) 0.05 K/uL (0.01-0.20); Immature Granulocytes % (auto) 0.4 %; Lymphocytes # (auto) 0.95 K/uL (1.2-3.4); Lymphocytes % (auto) 6.9 %; Mean Corpuscular Hemoglobin 29.4 pg (25.0-34.0); Mean Corpuscular Hgb Conc 32.6 g/dL (32.0-36.0); Mean Corpuscular Volume 90.3 fL (80.0-100.0); Mean Platelet Volume 8.9 fL (9.4-12.4); Monocytes # (auto) 1.18 K/uL (0.11-0.59); Monocytes % (auto) 8.6 %; Neutrophils # (auto) 11.25 K/uL (1.40-6.50); Neutrophils % (auto) 81.8 %; Platelet Count 519 K/uL (130-400); RDW Coefficient of Variation 12.7 % (11.5-14.5); RDW Standard Deviation 42.2 fL (36.4-46.3); Red Blood Count 2.48 M/uL (4.70-6.10); White Blood Count 13.75 K/ul (4.8-10.8)
[2023-01-12 08:05] LABS: Prothrombin Time 11.2 Seconds (9.0-12.0)
[2023-01-12 08:07] LABS: Albumin Globulin Ratio 0.8 (0.9-2); Albumin Level 2.4 gm/dl (3.4-5.0); BUN Creatinine Ratio 15.6 (10-20); Bilirubin,Total 0.2 mg/dl (0.2-1.0); Calcium 7.8 mg/dl (8.6-10.3); Est GFR (African American) 105.7 ml/min; Est GFR (Non-African American) 91.2 ml/min; Potassium 3.6 mmol/L (3.5-5.1); Total Protein 5.4 gm/dl (6.0-8.3)
[2023-01-12] MEDS: LANTUS PER UNIT CHARGE SQ SCH (08:09)
[2023-01-12] MEDS: INSULIN ASPART PER UNIT CHARGE SC SCH ×4 (08:09→21:17)
[2023-01-12] MEDS: ATORVASTATIN 40 MG TAB PO SCH (08:11)
[2023-01-12] MEDS: SERTRALINE HCL 100 MG TABLET PO SCH (08:11)
[2023-01-12] MEDS: PANTOprazole 40 MG TAB PO SCH (08:12)
[2023-01-12 08:15] LABS: Polychromasia 1+
[2023-01-12] MEDS ORDERED: LANTUS PER UNIT CHARGE SQ SCH ×2 (09:00)
--- NOTE | 2023-01-12 10:13 | Infectious Disease Consult ---
Date of Consultation January 12, 2023 Assessment & Plan (1) MSSA bacteremia: (2) Surgical site infection: Plan 62 yo M with history of DM1, HTN, HLD, memory deficit, chronic pain on opioids, R Charcot arthropathy and R foot lisfranc deformity s/p repair, closed reduction, application of external fixation, and tendon Achilles lengthening (12/25/22) who presents with MSSA foot infection c/b MSSA bacteremia. He had been discharged to SNF on 12/27 and was noncompliant with NWB on R foot,and signed himself out AMA on 01/05. While at home, he has had multiple falls due to ambulatory dysfunction with his ex fix. He was seen in podiatry clinic on 01/09, where he reported feeling ill, vomiting, and pt had erythema over the dorsal foot with concern for possible pin tract infection. He was therefore sent to the ED on 01/09, where labs showed WBC 16, Cr 1.7. Blood cultures and wound culture w ere collected, pt was given a dose of vancomycin, and he was discharged with cephalexin 500 mg QID. The BCx ended up growing MSSA in 2/4 bottles, and the wound culture grew MSSA. His paste up copy camera operator Dr. Collier advised him to present back to the hospital for R foot infection. On presentation 01/11, he was afebrile, WBC 14.1, Cr 1.33, lactate 2.8, CRP 21.6. XR R foot showed soft tissue swelling with postop changes, exam limited due to ex fix hardware. He was noted to have purulence coming from multiple pin sites. He is currently on cefazolin. The MSSA bacteremia is likely arising from his R foot infection. Per my discussion with Dr. Collier of podiatry, he would like to keep the external fixation in place for another 4-6 weeks, prior to moving to an internal fixation vs cast immobilization. Micro: 01/12 BCx x2: ordered 01/11 BCx x2: pending 01/09 Wound culture: MSSA (S clinda, TMP/SMX, tetra) 01/09 BCx x2: MSSA in 2/4 bottles Abx: Cefazolin 01/11 - present Cephalexin 01/09 - 01/11 Vanc 01/09 Problems: #R foot lisfranc deformity s/p repair and external fixation (12/25/22) c/b MSSA infection #MSSA bacteremia #Plate in R knee Recommendations: -Ordered repeat blood cultures for today -If 01/11 and/or 01/12 blood cultures become positive, would make sure pt has daily blood cultures collected over the weekend as well -TTE to evaluate for endocarditis -Continue cefazolin 2 g IV q8h -Given concern for hardware associated infection, likely will treat with cefazolin x 6 weeks. If hardware remains in place, would subsequently transition to an oral suppressive antibiotic (cefadroxil 500 mg PO BID) for at least 1 year -Would arrange for follow-up with ID locally Will continue to follow Consultation Information Consultation was provided via telemedicine using two-way real-time interactive telecommunication between the patient and the telemedicine provider. For the duration of the visit, the provider was performing the assessment from a diffe rent facility than the patient. This includesuse of bluetooth stethoscope forauscultationperformed by the telepresenter that the telemedicine provider can hear if described in the physical exam. Sales Marketing Coordinator contact information: Please call [facility] . (Phone Number For Physician Use Only) After establishing a telemedicine visit, patient was: Patient was verified with two unique identifiers, Patient/authorized rep acknowledged consent and understanding and Gave permission to continue telehealth session Time Spent with Patient: Initial => 40 min History of Present Illness Reason for Consultation: MSSA foot infection and bacteremia Attending Physician: Nik Stokes History of Present Illness 62 yo M with history of DM1, HTN, HLD, memory deficit, chronic pain on opioids, R Charcot arthropathy and R foot lisfranc deformity s/p repair, closed reduction, application of external fixation, and tendon Achilles lengthening (12/25/22) who presents with MSSA foot infection and bacteremia. He had been discharged to SNF on 12/27 and was supposed to be NWB on R foot, but was walking around. He signed himself out AMA on 01/05 and has been at home since. While at home, he has had multiple falls due to ambulatory dysfunction with his ex fix. He was seen in podiatry clinic on 01/09, where he reported feeling ill, vomiting, and pt had erythema over the dorsal foot with concern for possible pin tract infection. He was advised to present to the ED. He was seen in the ED on 01/09, where labs showed WBC 16, Cr 1.7. Blood cultures and wound culture were collected, pt was given a dose of vancomycin, and he was discharged with cephalexin 500 mg QID. The BCx ended up growing MSSA in 2/4 bottles, and the wound culture grew MSSA. His paste up copy camera operator Dr. Collier advised him to present back to the hospital for R foot infection. On presentation, pt was afebrile, VSS. Labs showed WBC 14.1, plt 602, Cr 1.33, lactate 2.8, CRP 21.6, procalcitonin 0.4. XR R foot showed soft tissue swelling with postop changes, exam limited due to ex fix hardware. BCx collected. He was noted to have purulence coming from multiple pin sites. He was started on cefazolin. Pt reports that he also has a plate in his R knee, and 6 bolts in that leg. Denies history of IVDU. Allergies Allergy/AdvReac Type Severity Reaction Status Date / Time pantoprazole [From Protonix] AdvReac Vomiting Verified 01/11/23 16:16 Home Medications Medication Instructions Recorded Confirmed Type Medical Marijuana 1 dose inhalation DIRECTED PRN 02/06/22 01/11/23 History NEEDED oxycodone 15 mg tablet 15 mg PO Q6H PRN Breakthrough Pain 02/09/22 01/11/23 History sildenafil 100 mg tablet 100 mg PO DAILY PRN Sexual Activity 02/09/22 01/11/23 History insulin glargine 100 unit/mL (3 25 unit (0.25 mL) subcut QAM #3 mL 02/11/22 01/11/23 Rx mL) subcutaneous pen (Lantus Solostar U-100 Insulin) pen needle,diabetic, disp unit 32 #100 ea 02/11/22 01/11/23 Rx gauge x 1/4", remover and disposal unit aspirin 81 mg tablet,delayed 81 mg PO QPM 02/17/22 01/11/23 History release esomeprazole magnesium 40 mg 40 mg PO QAM 02/17/22 01/11/23 History capsule,delayed release (Nexium) ibuprofen 600 mg tablet 600 mg PO TID PRN Pain 02/17/22 01/11/23 History oxycodone 15 mg tablet,crush 15 mg PO Q12 02/17/22 01/11/23 History resistant,extended release 12 hr (OxyContin) sertraline 100 mg tablet 100 mg PO QAM 02/17/22 01/11/23 History testosterone cypionate 200 mg/mL 200 mg IM WK 02/17/22 01/11/23 History intramuscular oil Omnipod 5 G6 Intro Kit (Gen 5) #1 ea 12/07/22 01/11/23 Rx subcutaneous cartridge with controller (insulin pump cart,auto,BT-cntr) Omnipod 5 G6 Pods (Gen 5) (insulin #10 ea 12/07/22 01/11/23 Rx pump cart,automated,BT) atorvastatin 40 mg tablet 40 mg PO DAILY 12/22/22 01/11/23 History insulin aspart U-100 100 unit/mL See Rx Instructions subcut TIDM 12/22/22 01/11/23 History (3 mL) subcutaneous pen (Novolog FlexPen U-100 Insulin aspart) Patient History Medical History (Updated 01/11/23 @ 16:44 by Bin Parks PA-C) GERD (gastroesophageal reflux disease) Glaucoma History of seizure last seizure "couple years ago" -- d/t hypoglycemia Osteoarthritis Surgical History History of appendectomy History of knee surgery Rt History of tonsillectomy Family History Other No family history of adverse response to anesthesia Social History Smoking Status: Never smoker Second Hand Exposure: No; Hx Alcohol Use: Yes Alcohol type: beer Hx Substance Use: No Preferred Language: Kyrgyz Communication Ability: Impaired Boiling House Hand Required: No Beliefs That Will Affect Care: None Current Living Situation: Spouse Feels Safe at Home: Yes Assistive Devices: Denture - Upper, Glasses, Walker and Wheelchair Review of System A complete ROS was performed and is negative except as mentioned in the HPI. Physical Exam Physical Exam: GEN: Well-appearing, in NAD. HEENT: EOMI, no nystagmus. RESP: No increased work of breathing EXT: RLE with external fixation in place SKIN: R foot--erythema over dorsal surface. Purulent drainage/crusting around multiple pins. Diffusely tender to palpation. NEURO: Alert and oriented. Answers all questions appropriately. Speech not slurred. PSYCH: Normal mood, affect appropriate. Results & Data Vital Signs (Past 12 Hours) Vital Signs Temp Pulse Pulse Resp BP Pulse Ox O2 Del Method 01/12/23 08:10 37.1 C 90 18 162/75 H 97 Room Air 01/12/23 07:15 106 H 01/12/23 03:37 99 H 01/12/23 02:49 36.4 C L 96 H 18 150/75 H 99 Room Air 01/11/23 22:39 36.7 C 105 H 18 119/54 L 97 Room Air Laboratory Results Short CBC 01/11/23 01/12/23 Range/Units 13:24 07:07 WBC 14.11 H 13.75 H (4.8-10.8) K/ul Hgb 10.1 L 7.3 L (14.0-18.0) g/dl Hct 30.3 L 22.4 L (42.0-52.0) % Plt Count 602 H 519 H (130-400) K/uL BMP 01/11/23 01/12/23 13:24 07:07 Sodium 137 138 Potassium 3.7 3.6 Chloride 105 110 H Carbon Dioxide 21 23 BUN 21 14 Creatinine 1.33 0.90 D Glucose 185 H 278 H Calcium 8.9 7.8 L Liver Function 01/11/23 01/12/23 Range/Units 13:24 07:07 Total Bilirubin 0.2 0.2 (0.2-1.0) mg/dl AST 13 9 L (13-39) U/L ALT 15 8 (7-52) U/L Alkaline Phosphatase 155 H 106 H (34-104) U/L Albumin 3.2 L 2.4 L (3.4-5.0) gm/dl Diagnostic Findings Foot X-Ray 01/11/23 14:58 XR foot RT 2V HISTORY: 62 years-old Male Status post with surgery Ex-Fix, w/ infection COMPARISON: 12/21/2022 TECHNIQUE: 2 views of the right foot FINDINGS: Limited exam secondary to extensive metallic bracing hardware. Pinning/K wires are noted within the midfoot and hindfoot. Acute mid foot fractures are again noted which are difficult to evaluate. Mild osteoarthritis with arterial calcifications. Soft tissue swelling about the foot. IMPRESSION: Soft tissue swelling with postoperative changes as above. Exam is limited secondary to external fixation hardware. ACT 112: Negative or not required by law. The above report was generated using voice recognition software. It may contain grammatical, syntax or spelling errors. Electronically signed by: Freddie Trinidad M.D. 01/11/2023 3:32 PM Medications Administered Current Inpatient Medications Acetaminophen (Acetaminophen 325 Mg Tab) 650 mg PO Q6H TAMRA Stop: 02/10/23 16:29 Last Admin: 01/12/23 03:58 Dose: 650 mg Aspirin (Aspirin 81 Mg Ectab) 81 mg PO QPM TAMRA Stop: 02/10/23 20:59 Last Admin: 01/11/23 21:08 Dose: 81 mg Atorvastatin Calcium (Atorvastatin 40 Mg Tab) 40 mg PO DAILY TAMRA Stop: 02/11/23 08:59 Last Admin: 01/12/23 08:11 Dose: 40 mg Dextrose (Dextrose 50% 50 Ml Syringe) 25 - 50 ml IV UD PRN; Protocol PRN Reason: Hypoglycemia Protocol Stop: 02/10/23 15:46 Last Admin: 01/12/23 03:05 Dose: 50 ml Enoxaparin Sodium (Enoxaparin Inj 30 Mg/0.3 Ml Syr) 30 mg SQ Q24H TAMRA Stop: 02/10/23 18:44 Last Admin: 01/11/23 21:08 Dose: 30 mg Glucagon (Glucagon For Inj 1 Mg Vial) 1 mg SQ UD PRN; Protocol PRN Reason: Hypoglycemia Protocol Stop: 02/10/23 15:46 Glucose (Glucose 10 Tab/Tube) 4 - 8 tab PO UD PRN; Protocol PRN Reason: Hypoglycemia Treatment Stop: 02/10/23 15:46 Glucose (Glucose 40% Gel 15 Gm Tube) 15 - 30 gm PO UD PRN; Protocol PRN Reason: Hypoglycemia Protocol Stop: 02/10/23 15:46 Cefazolin Sodium (Ancef 2000mg) 2,000 mg in 15 mls @ 3.75 mls/min IV Q8H TAMRA Stop: 01/25/23 21:59 Last Admin: 01/12/23 06:22 Dose: 3.75 mls/min Insulin Aspart (Insulin Aspart Per Unit Charge) 0 units SC ACHS TAMRA Stop: 02/10/23 16:29 Last Admin: 01/12/23 08:09 Dose: 11 units Insulin Glargine (Lantus Per Unit Charge) 20 units SQ DAILY [facility] Stop: 02/11/23 07:59 Last Admin: 01/12/23 08:09 Dose: 20 units Melatonin (Melatonin 3 Mg Tab) 3 mg PO HS PRN PRN Reason: Sleep Stop: 02/10/23 21:23 Last Admin: 01/11/23 21:38 Dose: 3 mg Miscellaneous (Carbohydrates For Hypoglycemia ) 15 - 30 gm PO UD PRN PRN Reason: Hypoglycemia Protocol Stop: 02/10/23 15:46 Miscellaneous Information (Pharmacy Glycemic Mgmt Consult) 1 each N/A UD PRN PRN Reason: Consult: Type 1 DM Stop: 02/10/23 15:46 Morphine Sulfate (Morphine Sulfate 4 Mg/Ml 1 Ml Carp\\Vial) 3 mg IV Q3H PRN PRN Reason: Pain (4,5,6+) Stop: 01/25/23 16:27 Last Admin: 01/12/23 08:10 Dose: 3 mg Ondansetron HCl (Ondansetron Inj 2 Mg/Ml 2 Ml Vial) 4 mg IV Q6H PRN PRN Reason: Nausea And Vomiting Stop: 01/12/23 21:49 Last Admin: 01/11/23 22:36 Dose: 4 mg Pantoprazole Sodium (Pantoprazole 40 Mg Tab) 40 mg PO DAILY [facility] Stop: 02/11/23 08:59 Last Admin: 01/12/23 08:12 Dose: Not Given Sertraline HCl (Sertraline Hcl 100 Mg Tablet) [facility] [place] Stop: 02/11/23 08:59 Last Admin: 01/12/23 08:11 Dose: 100 mg
--- NOTE | 2023-01-12 13:17 | Pharmacy Report ---
Pharmacy Glycemic Short Note 2 - Date of Service January 12, 2023 - Glycemic Short BSG Results (Last 24 hours): 01/11/23 01/11/23 01/12/23 13:24 20:43 02:43 Glucose 185 H POC Glucose 166 H 47 L* 01/12/23 01/12/23 01/12/23 03:02 03:24 07:07 Glucose 278 H POC Glucose 49 L* 133 H 01/12/23 01/12/23 07:36 11:26 Glucose POC Glucose 331 H* 72 OUTPATIENT ANTIDIABETIC REGIMEN: * Follows w/ [facility] * Recently switched to Novolog pump (Omnipod) * ICR: 11, CF 42 (BSG > 120) * Pump basal rates: -03: 0.85 units/hr, -: 0.75 units/hr, -00: 0.85 units/hr (20 units/day) HbA1c: 9.4% (12/22/22) ASSESSMENT: * is a 62 year old male w/ long-standing T1DM, admitted for inpatient IV antibiotic therapy of MSSA bacteremia secondary to foot infection * BSGs labile so far this admission, ranging 47-331 mg/dL * Previously admitted and managed by pharmacy glycemic service in September 2022 * During this admission, patient required 25-30 units of basal insulin. Will start conservatively in light of hypoglycemia this morning. PLAN FOR INPATIENT GLYCEMIC CONTROL: * Basal insulin * Lantus 20 units SC x 1 * Reassess in AM * Bolus insulin * NovoLog per scale ACHS or Q6hrs while NPO * Goal Range: Low 120 mg/dL - High 160 mg/dL * Correction Factor: 45 mg/dL/unit * Nutritional / Prandial insulin per carb ratio of 1 unit per 12 grams CHO consumed
--- NOTE | 2023-01-12 13:33 | XCELERA ---
[id number] [id number]
[2023-01-12] MEDS: DOCUSATE SODIUM/SENNA 50/8.6MG TAB PO SCH (14:28)
[2023-01-12] MEDS: POLYETHYLENE (MIRALAX) 17 GM PACK PO SCH ×2 (14:28→21:19)
[2023-01-12] MEDS ORDERED: MoRPHine SULFATE 4 MG/ML 1 ML CARP\\VIAL IV STA (14:38)
[2023-01-12] MEDS: ENOXAPARIN INJ 30 MG/0.3 ML SYR SQ SCH (17:42)
--- NOTE | 2023-01-12 17:59 | Electrocardiogram Report ---
Test Reason : Blood Pressure : / mmHG Vent. Rate : 107 BPM Atrial Rate : 107 BPM P-R Int : 136 ms QRS Dur : 072 ms QT Int : 338 ms P-R-T Axes : 066 009 031 degrees QTc Int : 451 ms Poor data quality, interpretation may be adversely affected Sinus tachycardia Possible Left atrial enlargement Abnormal ECG When compared with ECG of 21-DEC-2022 19:55, T wave amplitude has decreased in Anterior leads Confirmed by Juliocesar Leblanc ([id number]) on 01/12/2023 5:58:34 PM Referred By: Baltazar Collier Confirmed By:Rivera Leblanc
[2023-01-12] MEDS: ASPIRIN 81 MG ECTAB PO SCH (21:21)
--- NOTE | 2023-01-12 22:41 | Hospitalist Progress Note ---
Date of Service January 12, 2023 Assessment & Plan (1) MSSA bacteremia: Plan: -Admit to med/tele -The patient is currently afebrile, hemodynamically stable, and stable on RA -Received 3L of IV fluids, a dose of Zosyn, and repeat blood cultures in the ED -Initial lactate was 2.8, will get STAT repeat to monitor for clearance -Confirmed blood and wound cultures from [facility] were positive for MSSA and MRSA negative >Sensitivities show him to be pansensitive -Will continue with Cefazolin 2gm IV q8h moving forward -Will consult infectious disease: appreciate input awaiting MARNIE. -Dr. Collier has been consulted: appreciate input -The patient will lkely need PICC placement prior to DC, this could be complicated with his current history of Opioid abuse -Will start Sub-Q lovenox for DVT PPX will continue to monitor. will check inflammatory markers, awaiting ct scan imaging. (2) Surgical site infection: Plan: -See MSSA bacteremia (3) Opioid abuse: Plan: -Patient has a long history of chronic pain from previous back injury per his -Was reportedly taking Oxcotin 15 mg q12h until 1-2 weeks ago, however, review of his PDMP shows his last fill to be in March of 2022 -He has been taking his 15 mg PO Oxycodone q4-6 hours instead of the q8h as prescribed -Pain control may be difficult with him, for now will start with 650 mg PO Tylenol q6h, and 3 mg IV morphine q3h prn pain 4,5,6 + -If pain control is difficult during his admission would recommend pain management consult prior to discharge (4) Thrombocytosis: Plan: -Platelets noted to be 602 today -Liver function WNL, patient is asymptomatic -Could be secondary due to his recent procedure -Continue to trend CBC with diff for now (5) Depression: Plan: -Continue sertraline (6) Poorly controlled type 1 diabetes mellitus: Plan: -Monitor BSG q4h for now, goal is 110-140 -Will decrease basal from home dose of 25 qam to 20 to avoid hypoglycemia -CF of 50 and CR of 15 -Pharmacy glycemic consult placed -Continue to monitor (7) Hypertension: Plan: -Was taken off of lisinopril recently for orthostatic -Would continue to monitor for now to see if he needs to be restated on an antihypertensive prior to discharge (8) Dyslipidemia: Plan: -Continue atorvastatin Plan The patient was discussed with Dr. Romero at the time of the admission Admission and Anticipated Discharge Date Admission Date: January 11, 2023 Subjective 62 yo male reports he continues to have pain in his foot. Review of Systems Review of Systems: All systems reviewed & are unremarkable except as noted in HPI & below Physical Exam Physical Exam: General: In no acute distress, stated age, well-nourished, good hygiene HEENT: Normocephalic, atraumatic, no scleral icterus, pupils around round, symmetrical, and reactive to light, moist mucus membranes, trachea midline, no thyromegaly Chest/Pulm: No respiratory distress, symmetrical chest expansion, clear breath sounds throughout Cardiac: RRR, no murmurs noted Abdomen: Negative for ascites and bruising, normoactive bowel sounds, soft, non-tender to palpation throughout Musculoskeletal: Patient with external fixator in place on the lower half of the RLE, the right foot, ankle, and sibley are swollen, erythematous, and there is pustulous drainage noted at the pin insertion sites Extremities: Radial, dorsalis pedis, and posterior tibial pulses are intact and symmetrical Skin: As described above Neuro: Alert and oriented to person, place, month, year, and president, no focal defects, CN II-XII tested and intact, baseline left foot drop noted Psych: No acute distress, calm and cooperative during the exam Results & Data Results & Data Vital Signs (Past 12 Hours) Vital Signs Temp Pulse Pulse Pulse Resp BP Pulse Ox 01/12/23 19:00 36.7 C 88 19 148/71 H 99 01/12/23 16:28 90 01/12/23 15:51 36.8 C 95 H 18 147/68 H 95 01/12/23 11:40 36.7 C 89 20 137/69 98 O2 Del Method 01/12/23 19:00 Room Air 01/12/23 16:28 01/12/23 15:51 Room Air 01/12/23 11:40 Room Air PG Care Time/CCT Total # of Minutes Spent Total Time Spent with Patient: Total time spent is greater than 50% in coordination of care (as documented) at patient's floor/unit and/or counseling patient: Coding Level of Care Code 18863 SUB INP/OBS CARE MIN Diagnoses MSSA bacteremia R78.81; B95.61 Surgical site infection T81.49XA Opioid abuse F11.10 Thrombocytosis D75.839 Depression F32.A Poorly controlled type 1 diabetes mellitus E10.65 Hypertension I10 Dyslipidemia E78.5
[2023-01-12] MEDS: oxyCODONE HCL 15 MG TABCR (OxyCONTIN) PO SCH (23:18)
[2023-01-13] MEDS: MoRPHine SULFATE 4 MG/ML 1 ML CARP\\VIAL IV PRN ×6 (00:41→23:22)
[2023-01-13] MEDS: ACETAMINOPHEN 325 MG TAB PO SCH ×4 (04:50→23:13)
[2023-01-13] MEDS: ceFAZolin 2000MG 2,000 MG/15 ML SYR IV SCH ×3 (06:35→23:13)
[2023-01-13] MEDS ORDERED: MoRPHine SULFATE 2 MG/ML CARP IV ONE (06:53)
[2023-01-13] MEDS: oxyCODONE HCL 15 MG TABCR (OxyCONTIN) PO SCH ×2 (08:34→20:31)
[2023-01-13] MEDS: POLYETHYLENE (MIRALAX) 17 GM PACK PO SCH ×2 (08:35→20:29)
[2023-01-13] MEDS: SERTRALINE HCL 100 MG TABLET PO SCH (08:35)
[2023-01-13] MEDS: ATORVASTATIN 40 MG TAB PO SCH (08:35)
[2023-01-13] MEDS: PANTOprazole 40 MG TAB PO SCH (08:35)
[2023-01-13] MEDS: INSULIN ASPART PER UNIT CHARGE SC SCH ×4 (08:36→21:21)
[2023-01-13] MEDS: LANTUS PER UNIT CHARGE SQ SCH (08:36)
[2023-01-13] MEDS: DOCUSATE SODIUM/SENNA 50/8.6MG TAB PO SCH (10:22)
[2023-01-13 10:25] LABS: Basophils # (auto) 0.07 K/uL (0-0.2); Basophils % (auto) 0.5 %; Eosinophils # (auto) 0.15 K/uL (0-0.50); Hematocrit (blood only) 22.7 % (42.0-52.0); Hemoglobin 7.6 g/dl (14.0-18.0); Immature Granulocytes # (auto) 0.16 K/uL (0.01-0.20); Immature Granulocytes % (auto) 1.1 %; Lymphocytes # (auto) 0.95 K/uL (1.2-3.4); Lymphocytes % (auto) 6.3 %; Mean Corpuscular Hemoglobin 29.9 pg (25.0-34.0); Mean Corpuscular Hgb Conc 33.5 g/dL (32.0-36.0); Mean Corpuscular Volume 89.4 fL (80.0-100.0); Monocytes # (auto) 1.19 K/uL (0.11-0.59); Monocytes % (auto) 7.8 %; Neutrophils # (auto) 12.66 K/uL (1.40-6.50); Neutrophils % (auto) 83.3 %; Platelet Count 546 K/uL (130-400); RDW Coefficient of Variation 12.6 % (11.5-14.5); RDW Standard Deviation 41.3 fL (36.4-46.3); Red Blood Count 2.54 M/uL (4.70-6.10); White Blood Count 15.18 K/ul (4.8-10.8)
[2023-01-13 10:34] LABS: Albumin Globulin Ratio 0.8 (0.9-2); Albumin Level 2.6 gm/dl (3.4-5.0); BUN Creatinine Ratio 15.7 (10-20); Bilirubin,Total 0.2 mg/dl (0.2-1.0); Calcium 8.6 mg/dl (8.6-10.3); Creatinine Clr Calc Pharmacy 109.7 ml/min; Est GFR (African American) 117.2 ml/min; Est GFR (Non-African American) 101.1 ml/min; Globulin 3.4 gm/dl (2.5-4.0); Potassium 3.4 mmol/L (3.5-5.1)
[2023-01-13 10:38] LABS: Prothrombin Time 11.4 Seconds (9.0-12.0)
[2023-01-13 10:48] LABS: Ovalocytes 1+; Polychromasia 1+
--- NOTE | 2023-01-13 16:02 | CT Scan Report ---
CT foot LT wo con HISTORY: 62 years-old Male evaluate healing acute left foot pain COMPARISON: None TECHNIQUE: Multiple axial CT images of the left foot were obtained without the use of IV contrast. A dose lowering technique was used consistent with the principals of ALARA. FINDINGS: Ligaments and tendons are suboptimally evaluated by CT technique. Dense arterial calcifications. Ther e is mild diffuse subcutaneous edema. No drainable fluid collection. Demineralized appearance the bones with mild osteoarthritis. There is an acute nondisplaced intra-art icular fracture involving the medial base of the first proximal phalanx which demonstrates no signifi cant bony bridging. No additional acute fracture or dislocation identified. No osteochondral defect o f the talar dome. No osseous erosions are seen. IMPRESSION: Acute nondisplaced intra-articular fracture of the medial first proximal phalangeal base without sign ificant bony healing. ACT 112: Negative or not required by law. The above report was generated using voice recognition software. It may contain grammatical, syntax o r spelling errors. Electronically signed by: Freddie Trinidad M.D. 01/13/2023 4:00 PM
[2023-01-13] MEDS: ENOXAPARIN INJ 30 MG/0.3 ML SYR SQ SCH (17:55)
[2023-01-13] MEDS: MELATONIN 3 MG TAB PO PRN (20:31)
[2023-01-13] MEDS: ASPIRIN 81 MG ECTAB PO SCH (20:32)
--- NOTE | 2023-01-13 20:33 | Orthopedic Progress Note ---
Date of Service January 13, 2023 Assessment & Plan (1) Bacteremia: Plan: Patient seen, evaluated, and treated. Pin sites cleansed. External fixator intact. Reviewed CT images. No concern for abscess. Awaiting blood cultures. Will continue to follow while in house. (2) Diabetic infection of right foot: (3) Surgical site infection: Admission and Anticipated Discharge Date Admission Date: January 11, 2023 Subjective Patient is a type I diabetic. He is seen at bedside. He has no immediate complaints. Review of Systems Review of Systems: All systems reviewed & are unremarkable except as noted in Subjective Physical Exam Eyes: normal visual ortega by confrontation Neck: trachea midline Respiratory: normal respiratory effort Cardiovascular: Rate/Rhythm: regular rate and regular rhythm Psychiatric: Orientation: alert and oriented x 3 Results & Data Vital Signs (Past 12 Hours) Vital Signs Temp Pulse Pulse Resp BP Pulse Ox O2 Del Method 01/13/23 15:50 37.1 C 96 H 20 185/80 H 99 Room Air 01/13/23 15:38 103 H 01/13/23 11:17 37.1 C 105 H 18 156/75 H 99 Room Air
--- NOTE | 2023-01-13 22:26 | Hospitalist Progress Note ---
Date of Service January 13, 2023 Assessment & Plan (1) MSSA bacteremia: Plan: -Admit to med/tele -The patient is currently afebrile, hemodynamically stable, and stable on RA -Received 3L of IV fluids, a dose of Zosyn, and repeat blood cultures in the ED -Initial lactate was 2.8, will get STAT repeat to monitor for clearance -Confirmed blood and wound cultures from [facility] were positive for MSSA and MRSA negative >Sensitivities show him to be pansensitive -Will continue with Cefazolin 2gm IV q8h moving forward -Will consult infectious disease: appreciate input awaiting MARNIE. -Dr. Collier has been consulted: appreciate input -The patient will lkely need PICC placement prior to DC, this could be complicated with his current history of Opioid abuse -Will start Sub-Q lovenox for DVT PPX will continue to monitor. ct scan of foot does not appear to show any asbcess, inflammatory markers and WBC not showing much improvement. will continue above antibiotics and monitor (2) Surgical site infection: Plan: -See MSSA bacteremia (3) Opioid abuse: Plan: -Patient has a long history of chronic pain from previous back injury per his -Was reportedly taking Oxcotin 15 mg q12h until 1-2 weeks ago, however, review of his PDMP shows his last fill to be in March of 2022 -He has been taking his 15 mg PO Oxycodone q4-6 hours instead of the q8h as prescribed -Pain control may be difficult with him, for now will start with 650 mg PO Tylenol q6h, and 3 mg IV morphine q3h prn pain 4,5,6 + -If pain control is difficult during his admission would recommend pain management consult prior to discharge (4) Thrombocytosis: Plan: -Platelets noted to be 602 today -Liver function WNL, patient is asymptomatic -Could be secondary due to his recent procedure -Continue to trend CBC with diff for now (5) Depression: Plan: -Continue sertraline (6) Poorly controlled type 1 diabetes mellitus: Plan: -Monitor BSG q4h for now, goal is 110-140 -Will decrease basal from home dose of 25 qam to 20 to avoid hypoglycemia -CF of 50 and CR of 15 -Pharmacy glycemic consult placed -Continue to monitor (7) Hypertension: Plan: -Was taken off of lisinopril recently for orthostatic -Would continue to monitor for now to see if he needs to be restated on an antihypertensive prior to discharge (8) Dyslipidemia: Plan: -Continue atorvastatin Admission and Anticipated Discharge Date Admission Date: January 11, 2023 Subjective Patient reports he contnues to have pain in his right foot. Review of Systems Review of Systems: All systems reviewed & are unremarkable except as noted in HPI & below Physical Exam Physical Exam: General: In no acute distress, stated age, well-nourished, good hygiene HEENT: Normocephalic, atraumatic, no scleral icterus, pupils around round, symmetrical, and reactive to light, moist mucus membranes, trachea midline, no thyromegaly Chest/Pulm: No respiratory distress, symmetrical chest expansion, clear breath sounds throughout Cardiac: RRR, no murmurs noted Abdomen: Negative for ascites and bruising, normoactive bowel sounds, soft, non-tender to palpation throughout Musculoskeletal: Patient with external fixator in place on the lower half of the RLE, right foot appears less swollen Extremities: Radial, dorsalis pedis, and posterior tibial pulses are intact and symmetrical Skin: As described above Neuro: Alert and oriented to person, place, month, year, and president, no focal defects, CN II-XII tested and intact, baseline left foot drop noted Psych: No acute distress, calm and cooperative during the exam Results & Data Results & Data Vital Signs (Past 12 Hours) Vital Signs Temp Pulse Pulse Resp BP Pulse Ox O2 Del Method 01/13/23 19:00 37.6 C H 97 H 19 178/77 H 98 Room Air 01/13/23 15:50 37.1 C 96 H 20 185/80 H 99 Room Air 01/13/23 15:38 103 H 01/13/23 11:17 37.1 C 105 H 18 156/75 H 99 Room Air PG Care Time/CCT Total # of Minutes Spent Total Time Spent with Patient: Total time spent is greater than 50% in coordination of care (as documented) at patient's floor/unit and/or counseling patient: Coding Level of Care Code 89118 SUB INP/OBS CARE 2/35MIN Diagnoses MSSA bacteremia R78.81; B95.61 Surgical site infection T81.49XA Opioid abuse F11.10 Thrombocytosis D75.839 Depression F32.A Poorly controlled type 1 diabetes mellitus E10.65 Hypertension I10 Dyslipidemia E78.5
[2023-01-14] MEDS: MoRPHine SULFATE 4 MG/ML 1 ML CARP\\VIAL IV PRN ×6 (05:23→23:56)
[2023-01-14] MEDS: ACETAMINOPHEN 325 MG TAB PO SCH ×4 (05:24→21:15)
[2023-01-14] MEDS: ceFAZolin 2000MG 2,000 MG/15 ML SYR IV SCH ×3 (05:43→21:16)
[2023-01-14 08:12] LABS: Basophils # (auto) 0.06 K/uL (0-0.2); Basophils % (auto) 0.4 %; Eosinophils # (auto) 0.15 K/uL (0-0.50); Eosinophils % (auto) 0.9 %; Hematocrit (blood only) 22.5 % (42.0-52.0); Hemoglobin 7.7 g/dl (14.0-18.0); Immature Granulocytes # (auto) 0.18 K/uL (0.01-0.20); Immature Granulocytes % (auto) 1.1 %; Lymphocytes # (auto) 1.39 K/uL (1.2-3.4); Lymphocytes % (auto) 8.3 %; Mean Corpuscular Hemoglobin 30.1 pg (25.0-34.0); Mean Corpuscular Hgb Conc 34.2 g/dL (32.0-36.0); Mean Corpuscular Volume 87.9 fL (80.0-100.0); Mean Platelet Volume 8.7 fL (9.4-12.4); Monocytes # (auto) 1.53 K/uL (0.11-0.59); Monocytes % (auto) 9.2 %; Neutrophils # (auto) 13.34 K/uL (1.40-6.50); Neutrophils % (auto) 80.1 %; Platelet Count 539 K/uL (130-400); RDW Coefficient of Variation 12.8 % (11.5-14.5); RDW Standard Deviation 40.9 fL (36.4-46.3); Red Blood Count 2.56 M/uL (4.70-6.10); White Blood Count 16.65 K/ul (4.8-10.8)
[2023-01-14 08:26] LABS: Albumin Globulin Ratio 0.8 (0.9-2); Albumin Level 2.7 gm/dl (3.4-5.0); BUN Creatinine Ratio 15.9 (10-20); Bilirubin,Total 0.3 mg/dl (0.2-1.0); C Reactive Protein 12.94 mg/dl (0-0.5); Calcium 8.8 mg/dl (8.6-10.3); Creatinine Clr Calc Pharmacy 126.9 ml/min; Est GFR (African American) 122.4 ml/min; Est GFR (Non-African American) 105.6 ml/min; Globulin 3.6 gm/dl (2.5-4.0); Potassium 3.7 mmol/L (3.5-5.1); Total Protein 6.3 gm/dl (6.0-8.3)
[2023-01-14 08:33] LABS: INR 1.1 (0.9-1.1); Prothrombin Time 11.5 Seconds (9.0-12.0)
[2023-01-14] MEDS: POLYETHYLENE (MIRALAX) 17 GM PACK PO SCH ×2 (08:33→21:12)
[2023-01-14] MEDS: SERTRALINE HCL 100 MG TABLET PO SCH (08:33)
[2023-01-14] MEDS: DOCUSATE SODIUM/SENNA 50/8.6MG TAB PO SCH (08:33)
[2023-01-14] MEDS: ATORVASTATIN 40 MG TAB PO SCH (08:33)
[2023-01-14] MEDS: PANTOprazole 40 MG TAB PO SCH (08:34)
[2023-01-14] MEDS: oxyCODONE HCL 20 MG TABCR (OxyCONTIN) PO SCH ×2 (08:41→21:11)
[2023-01-14] MEDS: LANTUS PER UNIT CHARGE SQ SCH (08:42)
[2023-01-14] MEDS: INSULIN ASPART PER UNIT CHARGE SC SCH ×5 (08:42→21:03)
[2023-01-14 09:07] LABS: Ovalocytes 1+; Polychromasia 1+; Tear Drop Cells 1+
--- NOTE | 2023-01-14 13:22 | Pharmacy Report ---
Pharmacy Glycemic Short Note 2 - Date of Service January 14, 2023 - Glycemic Short BSG Results (Last 24 hours): 01/13/23 01/13/23 01/13/23 16:32 16:33 17:16 Glucose POC Glucose 67 L* 64 L* 95 01/13/23 01/14/23 01/14/23 20:42 07:38 07:53 Glucose 160 H POC Glucose 210 H 167 H 01/14/23 11:47 Glucose POC Glucose 294 H OUTPATIENT ANTIDIABETIC REGIMEN: * Follows w/ [facility] * Recently switched to Novolog pump (Omnipod) * ICR: 11, CF 42 (BSG > 120) * Pump basal rates: -03: 0.85 units/hr, -: 0.75 units/hr, -00: 0.85 units/hr (20 units/day) HbA1c: 9.4% (12/22/22) ASSESSMENT: 01/14/23: * BSGs labile yesterday, ranging 64-210 mg/dL * Received 30 units of insulin (20 units of basal and 10 units of bolus) * Second day of hyperglycemia at lunchtime - will tighten breakfast Novolog parameters * Will maintain looser parameters for rest of day given hypoglycemia yesterday 01/12/23: * is a 62 year old male w/ long-standing T1DM, admitted for inpatient IV antibiotic therapy of MSSA bacteremia secondary to foot infection * BSGs labile so far this admission, ranging 47-331 mg/dL * Previously admitted and managed by pharmacy glycemic service in September 2022 * During this admission, patient required 25-30 units of basal insulin. Will start conservatively in light of hypoglycemia this morning. PLAN FOR INPATIENT GLYCEMIC CONTROL: * Basal insulin * Lantus 20 units SC daily * Bolus insulin * NovoLog per scale ACHS or Q6hrs while NPO * Goal Range: Low 120 mg/dL - High 160 mg/dL * Correction Factor: 25 mg/dL/unit at breakfast, 45 mg/dL/unit at lunch, dinner, HS * Nutritional / Prandial insulin per carb ratio of 1 unit per 8 grams CHO consumed at breakfast, 12 grams CHO consumed at lunch, dinner, HS
[2023-01-14] MEDS: ENOXAPARIN INJ 30 MG/0.3 ML SYR SQ SCH (18:00)
[2023-01-14] MEDS: MELATONIN 3 MG TAB PO PRN (21:11)
[2023-01-14] MEDS: ASPIRIN 81 MG ECTAB PO SCH (21:12)
--- NOTE | 2023-01-14 21:12 | Orthopedic Progress Note ---
Date of Service January 14, 2023 Assessment & Plan (1) Bacteremia: Plan: Patient seen, evaluated, and treated. Pin sites cleansed. External fixator to remain intact for now. Will continue to monitor WBC. Reviewed CT images. No concern for abscess. Will continue to follow while in house. (2) Diabetic infection of right foot: (3) Surgical site infection: Admission and Anticipated Discharge Date Admission Date: January 11, 2023 Subjective Patient reports he contnues to have pain in his right foot. Review of Systems Review of Systems: All systems reviewed & are unremarkable except as noted in Subjective Physical Exam Eyes: normal visual ortega by confrontation Neck: trachea midline Respiratory: normal respiratory effort Cardiovascular: Rate/Rhythm: regular rate and regular rhythm Pedal pulses palpable Musculoskeletal: External fixator intact Skin: Drainage present surrounding pin sites consistent with resolving infection. Right foot appears less swollen Psychiatric: Orientation: alert and oriented x 3 Results & Data Vital Signs (Past 12 Hours) Vital Signs Temp Pulse Pulse Resp BP Pulse Ox O2 Del Method 01/14/23 19:00 37.5 C 106 H 18 154/80 H 99 Room Air 01/14/23 16:23 36.8 C 97 H 18 162/83 H 100 Room Air 01/14/23 15:31 102 H 01/14/23 11:16 36.7 C 89 18 158/98 H 91 Room Air
--- NOTE | 2023-01-14 21:18 | Hospitalist Progress Note ---
Date of Service January 14, 2023 Assessment & Plan (1) MSSA bacteremia: Plan: -Admit to med/tele -The patient is currently afebrile, hemodynamically stable, and stable on RA -Received 3L of IV fluids, a dose of Zosyn, and repeat blood cultures in the ED -Initial lactate was 2.8, will get STAT repeat to monitor for clearance -Confirmed blood and wound cultures from [facility] were positive for MSSA and MRSA negative >Sensitivities show him to be pansensitive -Will continue with Cefazolin 2gm IV q8h moving forward -Will consult infectious disease: appreciate input awaiting MARNIE. -Dr. Collier has been consulted: appreciate input -The patient will lkely need PICC placement prior to DC, this could be complicated with his current history of Opioid abuse -Will start Sub-Q lovenox for DVT PPX will continue to monitor. ct scan of foot does not appear to show any asbcess, inflammatory markers and WBC do not show any worsening, will monitor. Cultures in house have been negative. will continue above antibiotics and monitor (2) Surgical site infection: Plan: -See MSSA bacteremia (3) Opioid abuse: Plan: -Patient has a long history of chronic pain from previous back injury per his -Was reportedly taking Oxcotin 15 mg q12h until 1-2 weeks ago, however, review of his PDMP shows his last fill to be in March of 2022 -He has been taking his 15 mg PO Oxycodone q4-6 hours instead of the q8h as prescribed -Pain control may be difficult with him, for now will start with 650 mg PO Tylenol q6h, and 3 mg IV morphine q3h prn pain 4,5,6 + -If pain control is difficult during his admission would recommend pain management consult prior to discharge (4) Thrombocytosis: Plan: -Platelets noted to be 602 today -Liver function WNL, patient is asymptomatic -Could be secondary due to his recent procedure -Continue to trend CBC with diff for now (5) Depression: Plan: -Continue sertraline (6) Poorly controlled type 1 diabetes mellitus: Plan: -Monitor BSG q4h for now, goal is 110-140 -Will decrease basal from home dose of 25 qam to 20 to avoid hypoglycemia -CF of 50 and CR of 15 -Pharmacy glycemic consult placed -Continue to monitor (7) Hypertension: Plan: -Was taken off of lisinopril recently for orthostatic -Would continue to monitor for now to see if he needs to be restated on an antihypertensive prior to discharge (8) Dyslipidemia: Plan: -Continue atorvastatin Admission and Anticipated Discharge Date Admission Date: January 11, 2023 Subjective 62 yo male reports no new symptoms. Pain appears to be controlled. Review of Systems Review of Systems: All systems reviewed & are unremarkable except as noted in HPI & below Physical Exam Physical Exam: General: In no acute distress, stated age, well-nourished, good hygiene HEENT: Normocephalic, atraumatic, no scleral icterus, pupils around round, symmetrical, and reactive to light, moist mucus membranes, trachea midline, no thyromegaly Chest/Pulm: No respiratory distress, symmetrical chest expansion, clear breath sounds throughout Cardiac: RRR, no murmurs noted Abdomen: Negative for ascites and bruising, normoactive bowel sounds, soft, non- tender to palpation throughout Musculoskeletal: Patient with external fixator in place on the lower half of the RLE, right foot appears less swollen Extremities: Radial, dorsalis pedis, and posterior tibial pulses are intact and symmetrical Skin: As described above Neuro: Alert and oriented to person, place, month, year, and president, no focal defects, CN II-XII tested and intact, baseline left foot drop noted Psych: No acute distress, calm and cooperative during the exam Results & Data Results & Data Vital Signs (Past 12 Hours) Vital Signs Temp Pulse Pulse Resp BP Pulse Ox O2 Del Method 01/14/23 19:00 37.5 C 106 H 18 154/80 H 99 Room Air 01/14/23 16:23 36.8 C 97 H 18 162/83 H 100 Room Air 01/14/23 15:31 102 H 01/14/23 11:16 36.7 C 89 18 158/98 H 91 Room Air PG Care Time/CCT Total # of Minutes Spent Total Time Spent with Patient: Total time spent is greater than 50% in coordination of care (as documented) at patient's floor/unit and/or counseling patient: Coding Level of Care Code 70230 SUB INP/OBS CARE 2/35MIN Diagnoses MSSA bacteremia R78.81; B95.61 Surgical site infection T81.49XA Opioid abuse F11.10 Thrombocytosis D75.839 Depression F32.A Poorly controlled type 1 diabetes mellitus E10.65 Hypertension I10 Dyslipidemia E78.5
[2023-01-15] MEDS: MoRPHine SULFATE 4 MG/ML 1 ML CARP\\VIAL IV PRN ×5 (03:01→18:32)
[2023-01-15] MEDS: ACETAMINOPHEN 325 MG TAB PO SCH ×4 (04:11→21:07)
[2023-01-15] MEDS: ceFAZolin 2000MG 2,000 MG/15 ML SYR IV SCH ×3 (06:07→21:11)
[2023-01-15 07:28] LABS: Basophils # (auto) 0.05 K/uL (0-0.2); Basophils % (auto) 0.3 %; Eosinophils # (auto) 0.27 K/uL (0-0.50); Eosinophils % (auto) 1.5 %; Hematocrit (blood only) 21.1 % (42.0-52.0); Hemoglobin 7.2 g/dl (14.0-18.0); Immature Granulocytes # (auto) 0.18 K/uL (0.01-0.20); Lymphocytes # (auto) 1.62 K/uL (1.2-3.4); Lymphocytes % (auto) 9.2 %; Mean Corpuscular Hemoglobin 29.5 pg (25.0-34.0); Mean Corpuscular Hgb Conc 34.1 g/dL (32.0-36.0); Mean Corpuscular Volume 86.5 fL (80.0-100.0); Mean Platelet Volume 8.7 fL (9.4-12.4); Monocytes % (auto) 7.9 %; Neutrophils # (auto) 14.11 K/uL (1.40-6.50); Neutrophils % (auto) 80.1 %; Platelet Count 501 K/uL (130-400); RDW Coefficient of Variation 12.6 % (11.5-14.5); RDW Standard Deviation 40.1 fL (36.4-46.3); Red Blood Count 2.44 M/uL (4.70-6.10); White Blood Count 17.63 K/ul (4.8-10.8)
[2023-01-15 07:39] LABS: BUN Creatinine Ratio 14.1 (10-20); C Reactive Protein 10.59 mg/dl (0-0.5); Calcium 8.6 mg/dl (8.6-10.3); Est GFR (African American) 116.5 ml/min; Est GFR (Non-African American) 100.6 ml/min; Potassium 3.6 mmol/L (3.5-5.1)
[2023-01-15 07:58] LABS: RBC Morphology Unremarkable
[2023-01-15] MEDS: PANTOprazole 40 MG TAB PO SCH (08:11)
[2023-01-15] MEDS: POLYETHYLENE (MIRALAX) 17 GM PACK PO SCH ×2 (08:11→21:08)
[2023-01-15] MEDS: DOCUSATE SODIUM/SENNA 50/8.6MG TAB PO SCH (08:11)
[2023-01-15] MEDS: ATORVASTATIN 40 MG TAB PO SCH (08:11)
[2023-01-15] MEDS: SERTRALINE HCL 100 MG TABLET PO SCH (08:11)
[2023-01-15] MEDS: LANTUS PER UNIT CHARGE SQ SCH (08:15)
[2023-01-15] MEDS: INSULIN ASPART PER UNIT CHARGE SC SCH ×4 (08:15→20:34)
[2023-01-15] MEDS: oxyCODONE HCL 20 MG TABCR (OxyCONTIN) PO SCH ×2 (08:19→21:07)
--- NOTE | 2023-01-15 09:46 | Infectious Disease Progress Nt ---
Date of Service January 15, 2023 Assessment & Plan (1) MSSA bacteremia: (2) Surgical site infection: Plan 62 yo M with history of DM1, HTN, HLD, memory deficit, chronic pain on opioids, R Charcot arthropathy and R foot lisfranc deformity s/p repair, closed reduction, application of external fixation, and tendon Achilles lengthening (12/25/22) who presents with MSSA foot infection c/b MSSA bacteremia. He had been discharged to SNF on 12/27 and was noncompliant with NWB on R foot,and signed himself out AMA on 01/05. While at home, he has had multiple falls due to ambulatory dysfunction with his ex fix. He was seen in podiatry clinic on 01/09, where he reported feeling ill, vomiting, and pt had erythema over the dorsal foot with concern for possible pin tract infection. He was therefore sent to the ED on 01/09, where labs showed WBC 16, Cr 1.7. Blood cultures and wound culture were collected, pt was given a dose of vancomycin, and he was discharged with cephalexin 500 mg QID. The BCx ended up growing MSSA in 2/4 bottles, and the wound culture grew MSSA. His financial sales representative Dr. Collier advised him to present back to the hospital for R foot infection. On presentation 01/11, he was afebrile, WBC 14.1, Cr 1.33, lactate 2.8, CRP 21.6. XR R foot showed soft tissue swelling with postop changes, exam limited due to ex fix hardware. He was noted to have purulence coming from multiple pin sites. He is currently on cefazolin. Per my discussion with Dr. Collier of podiatry on 01/12, he would like to keep the external fixation in place for another 4-6 weeks, prior to moving to an internal fixation vs cast immobilization. The MSSA bacteremia is likely arising from his R foot infection, and fortunately appears to have rapidly cleared since 01/11. A TTE on 01/12 showed no evidence of mass or vegetation. The R foot continues to have lots of drainage from around the pin sites and incision. A CT on 01/12 (without contrast) did not demonstrate a drainable collection. Pt continues on cefazolin, but his WBC continues to rise. Could consider addition of rifampin, although has drug interactions that would decrease sertraline, oxycodone, and morphine concentrations, and increase atorvastatin concentration. Micro: 01/12 BCx x2: NGTD 01/11 BCx x2: NGTD 01/09 Wound culture: MSSA (S clinda, TMP/SMX, tetra) 01/09 BCx x2: MSSA in 2/4 bottles Abx: Cefazolin 01/11 - present Cephalexin 01/09 - 01/11 Vanc 01/09 Problems: #R foot lisfranc deformity s/p repair and external fixation (12/25/22) c/b MSSA infection #MSSA bacteremia #Leukocytosis: rising #Plate in R knee Recommendations: -Concern about rising leukocytosis and continued drainage from the R foot--does the hardware need to remain in place? -Continue cefazolin 2 g IV q8h -Could send repeat culture of R foot drainage -Consider repeat CT of R foot but with contrast -Given hardware associated infection, would treat with cefazolin x 6 weeks. If hardware then remains in place, would subsequently transition to an oral suppressive antibiotic (cefadroxil 500 mg PO BID) for at least 1 year -Ideally, would arrange for follow-up with [facility] locally, but if not feasible, should follow-up with PCP Discussed with primary team. Will continue to follow Admission and Anticipated Discharge Date Admission Date: January 11, 2023 Subjective Subsequent visit was provided via telemedicine using two-way real-time interactive telecommunication between the patient and the telemedicine provider. For the duration of the visit, the provider was performing the assessment from a different facility than the patient. This includesuse of bluetooth stethoscope forauscultationperformed by the telepresenter that the telemedicine provider can hear if described in the physical exam. Pipe Out Worker contact information: Please call [facility] [phone]. (Phone Number For Physician Use Only) After establishing a telemedicine visit, patient was: Patient was verified with two unique identifiers, Patient/authorized rep acknowledged consent and understanding and Gave permission to continue telehealth session Time Spent with Patient: Subsequent => 25 min Pt reports bad pain in his leg, similar to when he presented WBC increasing Slight increase in ESR to 74, but CRP downtrending to 10.6. Afebrile CT on 01/12 without contrast showed no drainable fluid collection Review of System A complete ROS was performed and is negative except as mentioned in the HPI. Physical Exam Physical Exam: GEN: laying in bed in NAD. RESP: No increased work of breathing EXT: RLE with external fixator in place, with drainage and crusting around each pin site SKIN: mild erythema on dorsal surface of foot. Incision over dorsal surface of foot with stitches in place, and drainage/crusting. NEURO: Alert and oriented. Answers all questions appropriately. Speech not slurred. PSYCH: Normal mood, affect appropriate. Results & Data Vital Signs (Past 12 Hours) Vital Signs Temp Pulse Pulse Resp BP Pulse Ox O2 Del Method 01/15/23 08:27 36.9 C 96 H 17 170/84 H 98 Room Air 01/15/23 07:10 93 H 01/15/23 04:00 36.9 C 102 H 18 161/90 H 98 Room Air 01/15/23 00:00 95 H 01/14/23 23:00 37.4 C 102 H 18 159/80 H 97 Room Air Laboratory Results Short CBC 01/15/23 Range/Units 06:32 WBC 17.63 H (4.8-10.8) K/ul Hgb 7.2 L (14.0-18.0) g/dl Hct 21.1 L (42.0-52.0) % Plt Count 501 H (130-400) K/uL BMP 01/15/23 06:32 Sodium 138 Potassium 3.6 Chloride 103 Carbon Dioxide 28 BUN 10 Creatinine 0.71 Glucose 116 H Calcium 8.[address] 01/12/23 21:38 CT foot LT wo con HISTORY: 62 years-old Male evaluate healing acute left foot pain COMPARISON: None TECHNIQUE: Multiple axial CT images of the left foot were obtained without the use of IV contrast. A dose lowering technique was used consistent with the principals of ALARA. FINDINGS: Ligaments and tendons are suboptimally evaluated by CT technique. Dense arterial calcifications. There is mild diffuse subcutaneous edema. No drainable fluid collection. Demineralized appearance the bones with mild osteoarthritis. There is an acute nondisplaced intra-articular fracture involving the medial base of the first proximal phalanx which demonstrates no significant bony bridging. No additional acute fracture or dislocation identified. No osteochondral defect of the talar dome. No osseous erosions are seen. IMPRESSION: Acute nondisplaced intra-articular fracture of the medial first proximal phalangeal base without significant bony healing. ACT 112: Negative or not required by law. The above report was generated using voice recognition software. It may contain grammatical, syntax or spelling errors. Electronically signed by: Freddie Trinidad M.D. 01/13/2023 4:00 PM Medications Administered Current Inpatient Medications Acetaminophen (Acetaminophen 325 Mg Tab) 650 mg PO Q6H TAMRA Stop: 02/10/23 16:29 Last Admin: 01/15/23 04:11 Dose: 650 mg Aspirin (Aspirin 81 Mg Ectab) 81 mg PO QPM TAMRA Stop: 02/10/23 20:59 Last Admin: 01/14/23 21:12 Dose: 81 mg Atorvastatin Calcium (Atorvastatin 40 Mg Tab) 40 mg PO DAILY TAMRA Stop: 02/11/23 08:59 Last Admin: 01/15/23 08:11 Dose: 40 mg Dextrose (Dextrose 50% 50 Ml Syringe) 25 - 50 ml IV UD PRN; Protocol PRN Reason: Hypoglycemia Protocol Stop: 02/10/23 15:46 Last Admin: 01/12/23 03:05 Dose: 50 ml Enoxaparin Sodium (Enoxaparin Inj 30 Mg/0.3 Ml Syr) 30 mg SQ Q24H TAMRA Stop: 02/10/23 18:44 Last Admin: 01/14/23 18:00 Dose: 30 mg Glucagon (Glucagon For Inj 1 Mg Vial) 1 mg SQ UD PRN; Protocol PRN Reason: Hypoglycemia Protocol Stop: 02/10/23 15:46 Glucose (Glucose 10 Tab/Tube) 4 - 8 tab PO UD PRN; Protocol PRN Reason: Hypoglycemia Treatment Stop: 02/10/23 15:46 Glucose (Glucose 40% Gel 15 Gm Tube) 15 - 30 gm PO UD PRN; Protocol PRN Reason: Hypoglycemia Protocol Stop: 02/10/23 15:46 Cefazolin Sodium (Ancef 2000mg) 2,000 mg in 15 mls @ 3.75 mls/min IV Q8H TAMRA Stop: 01/25/23 21:59 Last Admin: 01/15/23 06:07 Dose: 3.75 mls/min Insulin Aspart (Insulin Aspart Per Unit Charge) 0 units SC 0730 TAMRA Stop: 02/14/23 07:29 Last Admin: 01/15/23 08:15 Dose: 10 units Insulin Aspart (Insulin Aspart Per Unit Charge) 0 units SC 1130,1630,2100 [facility] Stop: 02/13/23 16:29 Last Admin: 01/14/23 21:03 Dose: Not Given Insulin Glargine (Lantus Per Unit Charge) 20 units SQ DAILY [facility] Stop: 02/11/23 07:59 Last Admin: 01/15/23 08:15 Dose: 20 units Melatonin (Melatonin 3 Mg Tab) 3 mg PO HS PRN PRN Reason: Sleep Stop: 02/10/23 21:23 Last Admin: 01/14/23 21:11 Dose: 3 mg Miscellaneous (Carbohydrates For Hypoglycemia ) 15 - 30 gm PO UD PRN PRN Reason: Hypoglycemia Protocol Stop: 02/10/23 15:46 Miscellaneous Information (Pharmacy Glycemic Mgmt Consult) 1 each N/A UD PRN PRN Reason: Consult: Type 1 DM Stop: 02/10/23 15:46 Morphine Sulfate (Morphine Sulfate 4 Mg/Ml 1 Ml Carp\Vial) 3 mg IV Q3H PRN PRN Reason: Pain (4,5,6+) Stop: 01/25/23 16:27 Last Admin: 01/15/23 09:24 Dose: 3 mg Oxycodone HCl (Oxycodone Hcl 20 Mg Tabcr (Oxycontin)) 20 mg PO BID [facility] Stop: 01/28/23 08:59 Last Admin: 01/15/23 08:19 Dose: 20 mg Pantoprazole Sodium (Pantoprazole 40 Mg Tab) 40 mg PO DAILY [facility] Stop: 02/11/23 08:59 Last Admin: 01/15/23 08:11 Dose: 40 mg Polyethylene Glycol (Polyethylene (Miralax) 17 Gm Pack) 17 gm PO BID [facility] Stop: 02/11/23 14:14 Last Admin: 01/15/23 08:11 Dose: 17 gm Senna/Docusate Sodium (Docusate Sodium/Senna 50/8.6mg Tab) 1 tab PO QAM [facility] Stop: 02/11/23 14:29 Last Admin: 01/15/23 08:11 Dose: 1 tab Sertraline HCl (Sertraline Hcl 100 Mg Tablet) 100 mg PO QAM [facility] Stop: 02/11/23 08:59 Last Admin: 01/15/23 08:11 Dose: 100 mg
[2023-01-15] MEDS: DEXTROSE 50% 50 ML SYRINGE IV PRN (16:37)
[2023-01-15] MEDS ORDERED: LIDOCAINE/EPINEPHRINE 1% 20 ML VIAL ONE (17:09)
--- NOTE | 2023-01-15 17:31 | History & Physical Bridge Note ---
Date of Service January 15, 2023 History & Physical Bridge Note I have examined the patient, reviewed the History & Physical and in the interval since the performance of the History & Physical I have noted the following changes of clinical significance: no changes noted
--- NOTE | 2023-01-15 18:18 | Post Operative Brief Note ---
Immediate Post Op Note v1 Date of Surgery January 15, 2023 Pre & Post Diagnosis Operation Date: 01/15/23 11:55 <No data on this case meets the specified criteria> I identified the patient and participated in the time-out.: Yes Procedure Operation Date: 01/15/23 11:55 <No data on this case meets the specified criteria> Surgeon Baltazar Collier, MICHAEL, MS Records Section Supervisor none Estimated Blood Loss 0 Findings Consistent with Post-Op Diagnosis consistent with pre operative diagnosis
[2023-01-15] MEDS: ENOXAPARIN INJ 30 MG/0.3 ML SYR SQ SCH (18:32)
[2023-01-15] MEDS: MELATONIN 3 MG TAB PO PRN (21:08)
[2023-01-15] MEDS: ASPIRIN 81 MG ECTAB PO SCH (21:09)
--- NOTE | 2023-01-15 21:47 | Hospitalist Progress Note ---
Date of Service January 15, 2023 Assessment & Plan (1) MSSA bacteremia: Plan: -Admit to med/tele -The patient is currently afebrile, hemodynamically stable, and stable on RA -Received 3L of IV fluids, a dose of Zosyn, and repeat blood cultures in the ED -Initial lactate was 2.8, will get STAT repeat to monitor for clearance -Confirmed blood and wound cultures from [facility] were positive for MSSA and MRSA negative >Sensitivities show him to be pansensitive -Will continue with Cefazolin 2gm IV q8h moving forward -Will consult infectious disease: appreciate input awaiting MARNIE. -Dr. Collier has been consulted: appreciate input -The patient will lkely need PICC placement prior to DC, this could be complicated with his current history of Opioid abuse -Will start Sub-Q lovenox for DVT PPX will continue to monitor. ct scan of foot does not appear to show any asbcess, inflammatory markers and WBC do not show any improvement. After reaching out to ID on 01/15, given that patient is not trending in the right direction despite being on correct antibiotic, discussed making a pivot in regards to Mr. Motta's treatment plan. Dr. Collier, will remove the hardware later today, Patient will be NPO today. (2) Surgical site infection: Plan: -See MSSA bacteremia (3) Opioid abuse: Plan: -Patient has a long history of chronic pain from previous back injury per his -Was reportedly taking Oxcotin 15 mg q12h until 1-2 weeks ago, however, review of his PDMP shows his last fill to be in March of 2022 -He has been taking his 15 mg PO Oxycodone q4-6 hours instead of the q8h as prescribed -Pain control may be difficult with him, for now will start with 650 mg PO Tylenol q6h, and 3 mg IV morphine q3h prn pain 4,5,6 + -If pain control is difficult during his admission would recommend pain management consult prior to discharge (4) Thrombocytosis: Plan: -Platelets noted to be 602 today -Liver function WNL, patient is asymptomatic -Could be secondary due to his recent procedure -Continue to trend CBC with diff for now (5) Depression: Plan: -Continue sertraline (6) Poorly controlled type 1 diabetes mellitus: Plan: -Monitor BSG q4h for now, goal is 110-140 -Will decrease basal from home dose of 25 qam to 20 to avoid hypoglycemia -CF of 50 and CR of 15 -Pharmacy glycemic consult placed -Continue to monitor (7) Hypertension: Plan: -Was taken off of lisinopril recently for orthostatic -Would continue to monitor for now to see if he needs to be restated on an antihypertensive prior to discharge (8) Dyslipidemia: Plan: -Continue atorvastatin Admission and Anticipated Discharge Date Admission Date: January 11, 2023 Subjective 62 yo male reports no new symptoms. Review of Systems Review of Systems: All systems reviewed & are unremarkable except as noted in HPI & below Physical Exam Physical Exam: General: In no acute distress, stated age, well-nourished, good hygiene HEENT: Normocephalic, atraumatic, no scleral icterus, pupils around round, symmetrical, and reactive to light, moist mucus membranes, trachea midline, no thyromegaly Chest/Pulm: No respiratory distress, symmetrical chest expansion, clear breath sounds throughout Cardiac: RRR, no murmurs noted Abdomen: Negative for ascites and bruising, normoactive bowel sounds, soft, non-tender to palpation throughout Musculoskeletal: Patient with external fixator in place on the lower half of the RLE, right foot appears less swollen Extremities: Radial, dorsalis pedis, and posterior tibial pulses are intact and symmetrical Skin: As described above Neuro: Alert and oriented to person, place, month, year, and president, no focal defects, CN II-XII tested and intact, baseline left foot drop noted Psych: No acute distress, calm and cooperative during the exam Results & Data Results & Data Vital Signs (Past 12 Hours) Vital Signs Temp Pulse Pulse Resp BP BP Pulse Ox 01/15/23 19:24 37.0 C 107 H 18 190/79 H 100 01/15/23 19:00 37.4 C 113 H 18 180/84 H 99 01/15/23 18:30 37.4 C 107 H 18 176/75 H 98 01/15/23 18:15 107 H 16 168/83 H 99 01/15/23 18:10 111 H 18 167/83 H 100 01/15/23 18:05 109 H 16 159/83 H 100 01/15/23 18:00 108 H 16 171/79 H 98 01/15/23 17:55 106 H 16 172/83 H 100 01/15/23 17:53 107 H 18 168/83 H 100 01/15/23 17:46 106 H 16 175/81 H 100 01/15/23 17:40 103 H 18 172/81 H 100 01/15/23 17:36 111 H 16 171/87 H 99 01/15/23 17:30 37.5 C 107 H 18 179/84 H 98 01/15/23 16:20 108 H 01/15/23 16:19 37.1 C 102 H 18 150/79 H 97 01/15/23 11:38 36.8 C 103 H 18 147/78 H 98 O2 Del Method 01/15/23 19:24 Room Air 01/15/23 19:00 Room Air 01/15/23 18:30 Room Air 01/15/23 18:15 Room Air 01/15/23 18:10 Room Air 01/15/23 18:05 Room Air 01/15/23 18:00 Room Air 01/15/23 17:55 Room Air 01/15/23 17:53 Room Air 01/15/23 17:46 Room Air 01/15/23 17:40 Room Air 01/15/23 17:36 Room Air 01/15/23 17:30 Room Air 01/15/23 16:20 01/15/23 16:19 Room Air 01/15/23 11:38 Room Air PG Care Time/CCT Total # of Minutes Spent Total Time Spent with Patient: Total time spent is greater than 50% in coordination of care (as documented) at patient's floor/unit and/or counseling patient: Coding Level of Care Code 55910 SUB INP/OBS CARE 3/50MIN Diagnoses MSSA bacteremia R78.81; B95.61 Surgical site infection T81.49XA Opioid abuse F11.10 Thrombocytosis D75.839 Depression F32.A Poorly controlled type 1 diabetes mellitus E10.65 Hypertension I10 Dyslipidemia E78.5 Time Spent (min) 50
--- NOTE | 2023-01-15 22:09 | Operative Report ---
Post Operative Report Pre & Post Diagnosis Operation Date: 01/15/23 11:55 Pre-Op Diagnosis: Bacteremia Diabetic infection of right foot Surgical site infection Post-Op Diagnosis: Bacteremia Diabetic infection of right foot Surgical site infection I identified the patient and participated in the time-out.: Yes Procedure Operation Date: 01/15/23 11:55 Actual Procedures p Removal of Right Lower Extremity External Fixator(Right) - Baltazar Collier DPM, MS Surgeon Baltazar Collier DPM, MS Skip Tender none Estimated Blood Loss 0 Findings Consistent with Post-Op Diagnosis none Specimens none Description of Procedure History of Present Illness: Patient is a type I diabetic, 62 year old male with extensive history of right Charcot arthropathy, right foot lisfranc deformity, Patient was treated with open reduction and application of external fixation, date of service 12/25/22. Patient failed to follow post operative instructions. Patient continued to ambulate on external fixation frame and checked himself out of residential facility Against Medical Advice. Patient later presented to office bacterimic and was referred to emergency department where blood cultures grew staph auresus. Patient continues to have elevated infection markers including WBCs, and ESR. He presents today for removal of external fixation. Patient understands consequence of loss of correction. Patient aware he is at severe risk for loss of life. All questions answered. All potential risks, benefits, complications, alternatives, rehab, potential for incomplete relief of symptoms, need for further surgery, DVT, PE, , persistent pain, swelling, scarring, weakness, neurovascular, wound complications and potential for amputations were discussed with patient. Unwanted outcomes such as, but not limited to were reviewed including under correction, overcorrection, return of deformity, infection. All questions were answered. Patient has decided to proceed with procedure as indicated. Preoperative diagnosis: 1.) Right Charcot Arthropathy 2.) Right foot Lisfranc dislocation 3.) Right lower extremity cellulitis Postoperative diagnosis: Same Name of operation: 1.) Removal of external fixation Right lower extremity Surgeon: Dr. Collier Skip Tender: None Anesthesia: Local anesthesia care Estimated blood loss: Minimal Procedure in detail: The patient was brought in the operating room placed on the operating table in supine position. Attention was directed to the right lower extremity. The external fixation frame was dissasembled with out incident. The foot was then prepped, scrubbed, and draped, in the usual aseptic manner. At this time the k-wires were cut flush and removed at the contralateral side. A T-handle was utilized to remove the half pin. Copious amounts of sterile normal saline was utilized to flush the wounds. The pin sites were dressed with sterile compressive dressing consisting of 4 x 4's and [place]. A posterior splint, Norm wrap were then applied. Patient tolerated procedure and anesthesia well. The Patient was transferred to recovery room with vital signs stable and vascular status intact all toes of the right foot. The Patient was transferred to recovery room with vital signs stable and vascular status intact all toes of the right foot. Following a period of Postoperative monitoring. The patient will be re-admitted to the floor on the following written and postoperative oral instructions. Keep dressing clean dry and intact, avoid ambulation, elevate right foot, contact Dr. Collier for all postoperative care if any problems arise. I attest to the content of the Intraoperative Record and any orders documented therein. Any exceptions are noted below.
--- NOTE | 2023-01-15 22:49 | Fluoroscopy Report ---
FL foot RT 2V CLINICAL HISTORY: EXFIX REMOVAL RIGHT FOOT TECHNIQUE: 1 views were obtained with the C-arm in the OR with the above procedure. Total fluoroscopy time was 0.0125 minutes. Comparison: None available at the time of this dictation. FINDINGS/IMPRESSION: Intraoperative images were obtained of hardware removal in the right foot Please correlate with intraoperative fluoroscopy and operative report. ACT 112: Negative or not required by law. Electronically signed by: Robby Zuniga M.D. 01/15/2023 10:48 PM
[2023-01-16] MEDS: MoRPHine SULFATE 4 MG/ML 1 ML CARP\\VIAL IV PRN ×7 (00:04→21:05)
[2023-01-16] MEDS: ACETAMINOPHEN 325 MG TAB PO SCH ×4 (04:22→22:17)
[2023-01-16] MEDS: ceFAZolin 2000MG 2,000 MG/15 ML SYR IV SCH ×3 (06:16→22:17)
[2023-01-16] MEDS: DOCUSATE SODIUM/SENNA 50/8.6MG TAB PO SCH (08:50)
[2023-01-16] MEDS: SERTRALINE HCL 100 MG TABLET PO SCH (08:50)
[2023-01-16] MEDS: ATORVASTATIN 40 MG TAB PO SCH (08:51)
[2023-01-16] MEDS: INSULIN ASPART PER UNIT CHARGE SC SCH ×4 (08:52→20:52)
[2023-01-16] MEDS: PANTOprazole 40 MG TAB PO SCH (08:52)
[2023-01-16] MEDS: oxyCODONE HCL 20 MG TABCR (OxyCONTIN) PO SCH ×2 (08:59→21:01)
[2023-01-16] MEDS: POLYETHYLENE (MIRALAX) 17 GM PACK PO SCH ×2 (08:59→21:01)
[2023-01-16] MEDS ORDERED: LANTUS PER UNIT CHARGE SQ SCH (09:00)
[2023-01-16 09:17] LABS: BUN Creatinine Ratio 16.9 (10-20); C Reactive Protein 13.49 mg/dl (0-0.5); Calcium 8.9 mg/dl (8.6-10.3); Est GFR (African American) 116.5 ml/min; Est GFR (Non-African American) 100.6 ml/min
--- NOTE | 2023-01-16 10:25 | Infectious Disease Progress Nt ---
Date of Service January 16, 2023 Assessment & Plan (1) MSSA bacteremia: (2) Surgical site infection: Plan 62 yo M with history of DM1, HTN, HLD, memory deficit, chronic pain on opioids, R Charcot arthropathy and R foot lisfranc deformity s/p repair, closed reduction, application of external fixation, and tendon Achilles lengthening (12/25/22) who presents with MSSA foot infection c/b MSSA bacteremia. He had been discharged to SNF on 12/27 and was noncompliant with NWB on R foot,and signed himself out AMA on 01/05. While at home, he has had multiple falls due to ambulatory dysfunction with his ex fix. He was seen in podiatry clinic on 01/09, where he reported feeling ill, vomiting, and pt had erythema over the dorsal foot with concern for possible pin tract infection. He was therefore sent to the ED on 01/09, where labs showed WBC 16, Cr 1.7. Blood cultures and wound culture were collected, pt was given a dose of vancomycin, and he was discharged with cephalexin 500 mg QID. The BCx ended up growing MSSA in 2/ bottles, and the wound culture grew MSSA, so he was advised to present back to the hospital. On presentation 01/11, he was afebrile, WBC 14.1, Cr 1.33, lactate 2.8, CRP 21.6. XR R foot showed soft tissue swelling with postop changes, exam limited due to ex fix hardware. He was noted to have purulence coming from multiple pin sites. A CT on 01/12 (without contrast) did not demonstrate a drainable collection. The MSSA bacteremia is likely arising from his R foot infection, and fortunately appears to have rapidly cleared since 01/11. A TTE on 01/12 showed no evidence of mass or vegetation. He was started on cefazolin on admission, but the R foot continued to have a lot of drainage from around the pin sites and incision, and his WBC continued to rise. Therefore, he was taken to the OR on 01/15 for removal of the external fixation. All hardware is now removed, and his leg is in a splint with plan for twice daily dressings with close monitoring of the leg for signs of worsening infection. Micro: 01/12 BCx x2: NGTD 01/11 BCx x2: NGTD 01/09 Wound culture: MSSA (S clinda, TMP/SMX, tetra) 01/09 BCx x2: MSSA in 2/ bottles Abx: Cefazolin 01/11 - present Cephalexin 01/09 - 01/11 Vanc 01/09 Problems: #R foot lisfranc deformity s/p repair and external fixation (12/25/22) c/b MSSA pin site infection #MSSA bacteremia #Leukocytosis #Plate in R knee Recommendations: -Continue cefazolin 2 g IV q8h -As all hardware is now removed, will likely be able to treat MSSA bacteremia and SSTI with 2 weeks of cefazolin 2 g IV q8h (or cefazolin 6 g IV continuous infusion daily for ease of dosing) via PICC. -Per discussion with podiatry, will likely need to discharge to a rehab facility for wound care Will continue to follow Admission and Anticipated Discharge Date Admission Date: January 11, 2023 Subjective This patient recommendation is based on a telemedicine consult request which was completed asynchronously through chart review and information provided by the primary physician. The patient was not seen or examined today. The evaluation is consultative in nature and all patient care and treatment decisions can either be accepted or rejected by the patient's primary hospital-based treating physician using their own independent medical judgment for their patient. Time Spent Reviewing Chart: 21 - 30 minutes Pt taken to OR yesterday for removal of external fixation. No hardware remaining Afebrile ESR 74 --> 64 CRP 10.6 --> 13.5 Review of System pt not seen Physical Exam Physical Exam: pt not seen Results & Data Vital Signs (Past 12 Hours) Vital Signs Temp Pulse Pulse Resp BP Pulse Ox O2 Del Method 01/16/23 07:36 36.8 C 97 H 18 163/76 H 98 Room Air 01/16/23 03:23 36.8 C 97 H 18 157/71 H 95 Room Air 01/16/23 00:00 120 H 01/16/23 00:00 63 01/15/23 23:54 36.7 C 101 H 18 167/69 H 99 Room Air Laboratory Results [facility] 01/16/23 08:27 Sodium 136 Potassium 4.0 Chloride 100 Carbon Dioxide 26 BUN 12 Creatinine 0.71 Glucose 251 H Calcium 8.9 Medications Administered Current Inpatient Medications Acetaminophen (Acetaminophen 325 Mg Tab) 650 mg PO Q6H TAMRA Stop: 02/10/23 16:29 Last Admin: 01/16/23 09:33 Dose: 650 mg Aspirin (Aspirin 81 Mg Ectab) 81 mg PO QPM TAMRA Stop: 02/10/23 20:59 Last Admin: 01/15/23 21:09 Dose: 81 mg Atorvastatin Calcium (Atorvastatin 40 Mg Tab) 40 mg PO DAILY TAMRA Stop: 02/11/23 08:59 Last Admin: 01/16/23 08:51 Dose: 40 mg Dextrose (Dextrose 50% 50 Ml Syringe) 25 - 50 ml IV UD PRN; Protocol PRN Reason: Hypoglycemia Protocol Stop: 02/10/23 15:46 Last Admin: 01/15/23 16:37 Dose: 50 ml Enoxaparin Sodium (Enoxaparin Inj 30 Mg/0.3 Ml Syr) 30 mg SQ Q24H TAMRA Stop: 02/10/23 18:44 Last Admin: 01/15/23 18:32 Dose: 30 mg Glucagon (Glucagon For Inj 1 Mg Vial) 1 mg SQ UD PRN; Protocol PRN Reason: Hypoglycemia Protocol Stop: 02/10/23 15:46 Glucose (Glucose 10 Tab/Tube) 4 - 8 tab PO UD PRN; Protocol PRN Reason: Hypoglycemia Treatment Stop: 02/10/23 15:46 Glucose (Glucose 40% Gel 15 Gm Tube) 15 - 30 gm PO UD PRN; Protocol PRN Reason: Hypoglycemia Protocol Stop: 02/10/23 15:46 Cefazolin Sodium (Ancef 2000mg) 2,000 mg in 15 mls @ 3.75 mls/min IV Q8H TAMRA Stop: 01/25/23 21:59 Last Admin: 01/16/23 06:16 Dose: 3.75 mls/min Insulin Aspart (Insulin Aspart Per Unit Charge) 0 units SC 0730 TAMRA Stop: 02/14/23 07:29 Last Admin: 01/16/23 08:52 Dose: 10 units Insulin Aspart (Insulin Aspart Per Unit Charge) 0 units SC 1130,1630,2100 TAMRA Stop: 02/13/23 16:29 Last Admin: 01/15/23 20:34 Dose: Not Given Insulin Glargine (Lantus Per Unit Charge) 19 units SQ DAILY TAMRA Stop: 02/11/23 07:59 Last Admin: 01/16/23 08:51 Dose: 19 units Melatonin (Melatonin 3 Mg Tab) 3 mg PO HS PRN PRN Reason: Sleep Stop: 02/10/23 21:23 Last Admin: 01/15/23 21:08 Dose: 3 mg Miscellaneous (Carbohydrates For Hypoglycemia ) 15 - 30 gm PO UD PRN PRN Reason: Hypoglycemia Protocol Stop: 02/10/23 15:46 Miscellaneous Information (Pharmacy Glycemic Mgmt Consult) 1 each N/A UD PRN PRN Reason: Consult: Type 1 DM Stop: 02/10/23 15:46 Morphine Sulfate (Morphine Sulfate 4 Mg/Ml 1 Ml Carp\Vial) 3 mg IV Q3H PRN PRN Reason: Pain (4,5,6+) Stop: 01/25/23 16:27 Last Admin: 01/16/23 09:29 Dose: 3 mg Oxycodone HCl (Oxycodone Hcl 20 Mg Tabcr (Oxycontin)) 20 mg PO BID [facility] Stop: 01/28/23 08:59 Last Admin: 01/16/23 08:59 Dose: 20 mg Pantoprazole Sodium (Pantoprazole 40 Mg Tab) 40 mg PO DAILY TAMRA Stop: 02/11/23 08:59 Last Admin: 01/16/23 08:52 Dose: 40 mg Polyethylene Glycol (Polyethylene (Miralax) 17 Gm Pack) 17 gm PO BID [facility] Stop: 02/11/23 14:14 Last Admin: 01/16/23 08:59 Dose: 17 gm Senna/Docusate Sodium (Docusate Sodium/Senna 50/8.6mg Tab) 1 tab PO QAM [facility] Stop: 02/11/23 14:29 Last Admin: 01/16/23 08:50 Dose: 1 tab Sertraline HCl (Sertraline Hcl 100 Mg Tablet) 100 mg PO QAM [facility] Stop: 02/11/23 08:59 Last Admin: 01/16/23 08:50 Dose: 100 mg
--- NOTE | 2023-01-16 13:40 | Pharmacy Report ---
Pharmacy Glycemic Short Note 2 - Date of Service January 16, 2023 - Glycemic Short BSG Results (Last 24 hours): 01/15/23 01/15/23 01/15/23 16:34 16:57 19:50 Glucose POC Glucose 52 L* 157 H 120 H 01/16/23 01/16/23 01/16/23 07:28 08:27 11:13 Glucose 251 H POC Glucose 206 H 316 H* 01/16/23 11:15 Glucose POC Glucose 343 H* OUTPATIENT ANTIDIABETIC REGIMEN: * Follows w/ [facility] * Recently switched to Novolog pump (Omnipod) * ICR: 11, CF 42 (BSG > 120) * Pump basal rates: -: 0.85 units/hr, -: 0.75 units/hr, -: 0.85 units/hr (20 units/day) HbA1c: 9.4% (12/22/22) ASSESSMENT: 01/16/23: * BSG's 278-57-40-120 throughout the day yesterday. Patient received 20 units of basal insulin and 3 units of bolus insulin. * Patient was started on a separate scale for breakfast on 01/15 in observance of repeated lunchtime hyperglycemia; Lunchtime BSG that day was well below goal at 70 mg/dL. NovoLog parameters were slightly loosened this AM, and lunchtime BSG shot up to 343 mg/dL. Patient received the same number of units at breakfast to cover the same number of carbs as the prior morning. * Fasting BSG today 119 mg/dL. Will carefully reduce dose of Lantus for this type 1 patient to prevent further downtrend of fasting BSG's. 01/14/23: * BSGs labile yesterday, ranging 64-210 mg/dL * Received 30 units of insulin (20 units of basal and 10 units of bolus) * Second day of hyperglycemia at lunchtime - will tighten breakfast Novolog parameters * Will maintain looser parameters for rest of day given hypoglycemia yesterday 01/12/23: * is a 62 year old male w/ long-standing T1DM, admitted for inpatient IV antibiotic therapy of MSSA bacteremia secondary to foot infection * BSGs labile so far this admission, ranging 47-331 mg/dL * Previously admitted and managed by pharmacy glycemic service in September 2022 * During this admission, patient required 25-30 units of basal insulin. Will start conservatively in light of hypoglycemia this morning. PLAN FOR INPATIENT GLYCEMIC CONTROL: * Basal insulin * Lantus 20 units SC daily * Bolus insulin * NovoLog per scale ACHS or Q6hrs while NPO * Goal Range: Low 110 mg/dL - High 140 mg/dL * Correction Factor: 25 mg/dL/unit at breakfast, 45 mg/dL/unit at lunch, dinner, HS * Nutritional / Prandial insulin per carb ratio of 1 unit per 9 grams CHO consumed at breakfast, 12 grams CHO consumed at lunch, dinner, HS
[2023-01-16] MEDS: ENOXAPARIN INJ 30 MG/0.3 ML SYR SQ SCH (18:20)
[2023-01-16] MEDS: ASPIRIN 81 MG ECTAB PO SCH (21:01)
[2023-01-16] MEDS: MELATONIN 3 MG TAB PO PRN (21:02)
--- NOTE | 2023-01-16 21:37 | Orthopedic Progress Note ---
Date of Service January 16, 2023 Assessment & Plan (1) Diabetic infection of right foot: Plan: Patient seen, evaluated, and treated. Patient will continue in posterior splint with daily dressing changes. Patient would benefit from SNF upon discharge due to inability to complete ADLs. Will continue to follow while in house. Admission and Anticipated Discharge Date Admission Date: January 11, 2023 Subjective Patient seen at bedside. He relates no complaints. He relates strong appetite. Review of Systems Review of Systems: All systems reviewed & are unremarkable except as noted in Subjective Physical Exam Eyes: normal visual ortega by confrontation Neck: trachea midline Respiratory: normal respiratory effort Cardiovascular: Rate/Rhythm: regular rate and regular rhythm Psychiatric: Orientation: alert and oriented x 3 Results & Data Vital Signs (Past 12 Hours) Vital Signs Temp Pulse Pulse Resp BP Pulse Ox O2 Del Method 01/16/23 19:00 37.6 C H 108 H 18 155/81 H 98 Room Air 01/16/23 14:16 103 H 01/16/23 15:00 36.7 C 93 H 18 157/78 H 98 Room Air 01/16/23 11:12 37.2 C 97 H 18 163/81 H 96 Room Air
--- NOTE | 2023-01-16 22:33 | Hospitalist Progress Note ---
Date of Service January 16, 2023 Assessment & Plan (1) MSSA bacteremia: Plan: -Admit to med/tele -The patient is currently afebrile, hemodynamically stable, and stable on RA -Received 3L of IV fluids, a dose of Zosyn, and repeat blood cultures in the ED -Initial lactate was 2.8, will get STAT repeat to monitor for clearance -Confirmed blood and wound cultures from [facility] were positive for MSSA and MRSA negative >Sensitivities show him to be pansensitive -Will continue with Cefazolin 2gm IV q8h moving forward -Will consult infectious disease: appreciate input awaiting MARNIE. -Dr. Collier has been consulted: appreciate input -The patient will lkely need PICC placement prior to DC, this could be complicated with his current history of Opioid abuse -Will start Sub-Q lovenox for DVT PPX will continue to monitor. ct scan of foot does not appear to show any asbcess, inflammatory markers and WBC do not show any improvement. After reaching out to ID on 01/15, given that patient is not trending in the right direction despite being on correct antibiotic, discussed making a pivot in regards to Mr. Motta's treatment plan. Dr. Collier, removed hardware on 01/15. Will continue antibiotics, anticipate, labs may have a delayed response. Should show further improvement on 01/17. (2) Surgical site infection: Plan: -See MSSA bacteremia (3) Opioid abuse: Plan: -Patient has a long history of chronic pain from previous back injury per his -Was reportedly taking Oxcotin 15 mg q12h until 1-2 weeks ago, however, review of his PDMP shows his last fill to be in March of 2022 -He has been taking his 15 mg PO Oxycodone q4-6 hours instead of the q8h as prescribed -Pain control may be difficult with him, for now will start with 650 mg PO Tylenol q6h, and 3 mg IV morphine q3h prn pain 4,5,6 + -If pain control is difficult during his admission would recommend pain management consult prior to discharge (4) Thrombocytosis: Plan: -Platelets noted to be 602 today -Liver function WNL, patient is asymptomatic -Could be secondary due to his recent procedure -Continue to trend CBC with diff for now (5) Depression: Plan: -Continue sertraline (6) Poorly controlled type 1 diabetes mellitus: Plan: -Monitor BSG q4h for now, goal is 110-140 -Will decrease basal from home dose of 25 qam to 20 to avoid hypoglycemia -CF of 50 and CR of 15 -Pharmacy glycemic consult placed -Continue to monitor (7) Hypertension: Plan: -Was taken off of lisinopril recently for orthostatic -Would continue to monitor for now to see if he needs to be restated on an antihypertensive prior to discharge (8) Dyslipidemia: Plan: -Continue atorvastatin Admission and Anticipated Discharge Date Admission Date: January 11, 2023 Subjective 62 yo male reports no new symptoms. He continues to have pain in his foot. Review of Systems Review of Systems: All systems reviewed & are unremarkable except as noted in HPI & below Physical Exam Physical Exam: General: In no acute distress, stated age, well-nourished, good hygiene HEENT: Normocephalic, atraumatic, no scleral icterus, pupils around round, symmetrical, and reactive to light, moist mucus membranes, trachea midline, no thyromegaly Chest/Pulm: No respiratory distress, symmetrical chest expansion, clear breath sounds throughout Cardiac: RRR, no murmurs noted Abdomen: Negative for ascites and bruising, normoactive bowel sounds, soft, non- tender to palpation throughout Musculoskeletal: right foot appears less swollen, fixator now removed. Extremities: Radial, dorsalis pedis, and posterior tibial pulses are intact and symmetrical, hardware no removed Skin: As described above Neuro: Alert and oriented to person, place, month, year, and president, no focal defects, CN II-XII tested and intact, baseline left foot drop noted Psych: No acute distress, calm and cooperative during the exam Results & Data Results & Data Vital Signs (Past 12 Hours) Vital Signs Temp Pulse Pulse Resp BP Pulse Ox O2 Del Method 01/16/23 19:00 37.6 C H 108 H 18 155/81 H 98 Room Air 01/16/23 14:16 103 H 01/16/23 15:00 36.7 C 93 H 18 157/78 H 98 Room Air 01/16/23 11:12 37.2 C 97 H 18 163/81 H 96 Room Air PG Care Time/CCT Total # of Minutes Spent Total Time Spent with Patient: Total time spent is greater than 50% in coordination of care (as documented) at patient's floor/unit and/or counseling patient: Coding Level of Care Code 40784 SUB INP/OBS CARE MIN Diagnoses MSSA bacteremia R78.81; B95.61 Surgical site infection T81.49XA Opioid abuse F11.10 Thrombocytosis D75.839 Depression F32.A Poorly controlled type 1 diabetes mellitus E10.65 Hypertension I10 Dyslipidemia E78.5
[2023-01-17] MEDS: MoRPHine SULFATE 4 MG/ML 1 ML CARP\\VIAL IV PRN ×5 (00:05→13:55)
[2023-01-17] MEDS: ACETAMINOPHEN 325 MG TAB PO SCH ×4 (03:52→23:15)
[2023-01-17] MEDS: ceFAZolin 2000MG 2,000 MG/15 ML SYR IV SCH ×3 (05:31→21:21)
[2023-01-17] MEDS: oxyCODONE HCL 20 MG TABCR (OxyCONTIN) PO SCH (07:44)
[2023-01-17] MEDS: PANTOprazole 40 MG TAB PO SCH (07:45)
[2023-01-17] MEDS: SERTRALINE HCL 100 MG TABLET PO SCH (07:45)
[2023-01-17] MEDS: ATORVASTATIN 40 MG TAB PO SCH (07:45)
[2023-01-17] MEDS: DOCUSATE SODIUM/SENNA 50/8.6MG TAB PO SCH (07:46)
[2023-01-17] MEDS: POLYETHYLENE (MIRALAX) 17 GM PACK PO SCH ×2 (07:46→21:18)
[2023-01-17 08:26] LABS: BUN Creatinine Ratio 17.4 (10-20); C Reactive Protein 13.09 mg/dl (0-0.5); Calcium 8.5 mg/dl (8.6-10.3); Creatinine Clr Calc Pharmacy 112.6 ml/min; Est GFR (African American) 117.9 ml/min; Est GFR (Non-African American) 101.7 ml/min
[2023-01-17 08:28] LABS: Hematocrit (blood only) 22.4 % (42.0-52.0); Hemoglobin 7.4 g/dl (14.0-18.0); Mean Corpuscular Hemoglobin 28.9 pg (25.0-34.0); Mean Corpuscular Volume 87.5 fL (80.0-100.0); Mean Platelet Volume 8.8 fL (9.4-12.4); Platelet Count 496 K/uL (130-400); RDW Coefficient of Variation 12.4 % (11.5-14.5); RDW Standard Deviation 39.8 fL (36.4-46.3); Red Blood Count 2.56 M/uL (4.70-6.10); White Blood Count 18.09 K/ul (4.8-10.8)
[2023-01-17] MEDS: LANTUS PER UNIT CHARGE SQ SCH (08:51)
[2023-01-17] MEDS: INSULIN ASPART PER UNIT CHARGE SC SCH ×4 (08:51→21:17)
--- NOTE | 2023-01-17 11:10 | Infectious Disease Progress Nt ---
Date of Service January 17, 2023 Assessment & Plan (1) MSSA bacteremia: (2) Surgical site infection: Plan 62 yo M with history of DM1, HTN, HLD, memory deficit, chronic pain on opioids, R Charcot arthropathy and R foot lisfranc deformity s/p repair, closed reduction, application of external fixation, and tendon Achilles lengthening (12/25/22) who presents with MSSA foot infection c/b MSSA bacteremia. He had been discharged to SNF on 12/27 and was noncompliant with NWB on R foot,and signed himself out AMA on 01/05. While at home, he has had multiple falls due to ambulatory dysfunction with his ex fix. He was seen in podiatry clinic on 01/09, where he reported feeling ill, vomiting, and pt had erythema over the dorsal foot with concern for possible pin tract infection. He was therefore sent to the ED on 01/09, where labs showed WBC 16, Cr 1.7. Blood cultures and wound culture were collected, pt was given a dose of vancomycin, and he was discharged with cephalexin 500 mg QID. The BCx ended up growing MSSA in 2/ bottles, and the wound culture grew MSSA, so he was advised to present back to the hospital. On presentation 01/11, he was afebrile, WBC 14.1, Cr 1.33, lactate 2.8, CRP 21.6. XR R foot showed soft tissue swelling with postop changes, exam limited due to ex fix hardware. He was noted to have purulence coming from multiple pin sites. A CT on 01/12 (without contrast) did not demonstrate a drainable collection. The MSSA bacteremia is likely arising from his R foot infection, and fortunately appears to have rapidly cleared since 01/11. A TTE on 01/12 showed no evidence of mass or vegetation. He was started on cefazolin on admission, but the R foot continued to have a lot of drainage from around the pin sites and incision, and his WBC continued to rise. Therefore, he was taken to the OR on 01/15 for removal of the external fixation. All hardware is now removed, and his leg is in a splint with plan for twice daily dressings with close monitoring of the leg for signs of worsening infection. Micro: 01/12 BCx x2: NGTD 01/11 BCx x2: NGTD 01/09 Wound culture: MSSA (S clinda, TMP/SMX, tetra) 01/09 BCx x2: MSSA in 2/ bottles Abx: Cefazolin 01/11 - present Cephalexin 01/09 - 01/11 Vanc 01/09 Problems: #R foot lisfranc deformity s/p repair and external fixation (12/25/22) c/b MSSA pin site infection #MSSA bacteremia #Leukocytosis #Plate in R knee Recommendations: -Continue cefazolin 2 g IV q8h. Drainage appears to be improving. -As all hardware is now removed, will be able to treat MSSA bacteremia and SSTI with 2 weeks of cefazolin 2 g IV q8h (or cefazolin 6 g IV continuous infusion daily for ease of dosing) via midline/PICC. Will continue to follow Admission and Anticipated Discharge Date Admission Date: January 11, 2023 Subjective Subsequent visit was provided via telemedicine using two-way real-time interactive telecommunication between the patient and the telemedicine provider. For the duration of the visit, the provider was performing the assessment from a different facility than the patient. This includesuse of bluetooth stethoscope forauscultationperformed by the telepresenter that the telemedicine provider can hear if described in the physical exam. [employer] contact information: Please call [facility] . (Phone Number For Physician Use Only) After establishing a telemedicine visit, patient was: Patient was verified with two unique identifiers, Patient/authorized rep acknowledged consent and understanding and Gave permission to continue telehealth session Time Spent with Patient: Subsequent => 25 min WBC up to 18.1 today Tmax 37.6 last night Continues on cefazolin Pt reports RLE pain Review of System A complete ROS was performed and is negative except as mentioned in the HPI. Physical Exam Physical Exam: GEN: laying in bed in NAD. RESP: No increased work of breathing EXT: No LE edema. SKIN: R foot with incision on dorsal foot with surrounding erythema. Areas of dried crusting around prior pin sites. Slight drainage on dressing. NEURO: Alert and oriented. Answers all questions appropriately. Speech not slurred. PSYCH: Normal mood, affect appropriate. Results & Data Vital Signs (Past 12 Hours) Vital Signs Temp Pulse Pulse Resp BP Pulse Ox O2 Del Method 01/17/23 07:57 36.6 C 95 H 9 L 122/70 98 Room Air 01/17/23 01:08 96 H Laboratory Results Short CBC 01/17/23 Range/Units 07:33 WBC 18.09 H (4.8-10.8) K/ul Hgb 7.4 L (14.0-18.0) g/dl Hct 22.4 L (42.0-52.0) % Plt Count 496 H (130-400) K/uL BMP 01/17/23 07:33 Sodium 134 L Potassium 4.0 Chloride 99 Carbon Dioxide 27 BUN 12 Creatinine 0.69 Glucose 234 H Calcium 8.5 L Medications Administered Current Inpatient Medications Acetaminophen (Acetaminophen 325 Mg Tab) 650 mg PO Q6H TAMRA Stop: 02/10/23 16:29 Last Admin: 01/17/23 10:14 Dose: 650 mg Aspirin (Aspirin 81 Mg Ectab) 81 mg PO QPM TAMRA Stop: 02/10/23 20:59 Last Admin: 01/16/23 21:01 Dose: 81 mg Atorvastatin Calcium (Atorvastatin 40 Mg Tab) 40 mg PO DAILY TAMRA Stop: 02/11/23 08:59 Last Admin: 01/17/23 07:45 Dose: 40 mg Dextrose (Dextrose 50% 50 Ml Syringe) 25 - 50 ml IV UD PRN; Protocol PRN Reason: Hypoglycemia Protocol Stop: 02/10/23 15:46 Last Admin: 01/15/23 16:37 Dose: 50 ml Enoxaparin Sodium (Enoxaparin Inj 30 Mg/0.3 Ml Syr) 30 mg SQ Q24H TAMRA Stop: 02/10/23 18:44 Last Admin: 01/16/23 18:20 Dose: 30 mg Glucagon (Glucagon For Inj 1 Mg Vial) 1 mg SQ UD PRN; Protocol PRN Reason: Hypoglycemia Protocol Stop: 02/10/23 15:46 Glucose (Glucose 10 Tab/Tube) 4 - 8 tab PO UD PRN; Protocol PRN Reason: Hypoglycemia Treatment Stop: 02/10/23 15:46 Glucose (Glucose 40% Gel 15 Gm Tube) 15 - 30 gm PO UD PRN; Protocol PRN Reason: Hypoglycemia Protocol Stop: 02/10/23 15:46 Cefazolin Sodium (Ancef 2000mg) 2,000 mg in 15 mls @ 3.75 mls/min IV Q8H TAMRA Stop: 01/25/23 21:59 Last Admin: 01/17/23 05:31 Dose: 3.75 mls/min Insulin Aspart (Insulin Aspart Per Unit Charge) 0 units SC 0730 [facility] Stop: 02/14/23 07:29 Last Admin: 01/17/23 08:51 Dose: 5 units Insulin Aspart (Insulin Aspart Per Unit Charge) 0 units SC 1130,1630,2100 [facility] Stop: 02/13/23 16:29 Last Admin: 01/16/23 20:52 Dose: 4 units Insulin Glargine (Lantus Per Unit Charge) 22 units SQ DAILY [facility] Stop: 02/11/23 07:59 Last Admin: 01/17/23 08:51 Dose: 22 units Melatonin (Melatonin 3 Mg Tab) 3 mg PO HS PRN PRN Reason: Sleep Stop: 02/10/23 21:23 Last Admin: 01/16/23 21:02 Dose: 3 mg Miscellaneous (Carbohydrates For Hypoglycemia ) 15 - 30 gm PO UD PRN PRN Reason: Hypoglycemia Protocol Stop: 02/10/23 15:46 Miscellaneous Information (Pharmacy Glycemic Mgmt Consult) 1 each N/A UD PRN PRN Reason: Consult: Type 1 DM Stop: 02/10/23 15:46 Morphine Sulfate (Morphine Sulfate 4 Mg/Ml 1 Ml Carp\Vial) 3 mg IV Q3H PRN PRN Reason: Pain (4,5,6+) Stop: 01/25/23 16:27 Last Admin: 01/17/23 10:08 Dose: 3 mg Oxycodone HCl (Oxycodone Hcl 20 Mg Tabcr (Oxycontin)) 20 mg PO BID [facility] Stop: 01/28/23 08:59 Last Admin: 01/17/23 07:44 Dose: 20 mg Pantoprazole Sodium (Pantoprazole 40 Mg Tab) 40 mg PO DAILY [facility] Stop: 02/11/23 08:59 Last Admin: 01/17/23 07:45 Dose: 40 mg Polyethylene Glycol (Polyethylene (Miralax) 17 Gm Pack) 17 gm PO BID [facility] Stop: 02/11/23 14:14 Last Admin: 01/17/23 07:46 Dose: 17 gm Senna/Docusate Sodium (Docusate Sodium/Senna 50/8.6mg Tab) 1 tab PO QAM [facility] Stop: 02/11/23 14:29 Last Admin: 01/17/23 07:46 Dose: 1 tab Sertraline HCl (Sertraline Hcl 100 Mg Tablet) 100 mg PO QAM [facility] Stop: 02/11/23 08:59 Last Admin: 01/17/23 07:45 Dose: 100 mg
[2023-01-17] MEDS ORDERED: INSULIN HUMAN REGULAR PER UNIT 5 UNITS in SYRINGE 4.95 ML IV ONE (15:00)
--- NOTE | 2023-01-17 15:36 | Pharmacy Report ---
Pharmacy Glycemic Short Note 2 - Date of Service January 17, 2023 - Glycemic Short BSG Results (Last 24 hours): 01/16/23 01/16/23 01/16/23 16:43 20:08 22:24 Glucose POC Glucose 156 H 314 H* 153 H 01/17/23 01/17/23 01/17/23 07:33 08:18 11:41 Glucose 234 H POC Glucose 275 H 332 H* 01/17/23 01/17/23 11:42 14:40 Glucose POC Glucose 342 H* 328 H* OUTPATIENT ANTIDIABETIC REGIMEN: * Follows w/ [facility] * Recently switched to Novolog pump (Omnipod) * ICR: 11, CF 42 (BSG > 120) * Pump basal rates: -: 0.85 units/hr, -: 0.75 units/hr, -00: 0.85 units/hr (20 units/day) HbA1c: 9.4% (12/22/22) ASSESSMENT: 01/17/23: * Fasting BSG today well above goal at 275 mg/dL. Lunchtime BSG also elevated at 345 mg/dL. * Following receipt of the high lunchtime BSG, I contacted the patient's nurse who stated that the patient had eaten prior to BSG checks at both breakfast and lunch today. At breakfast time, the patient received 5 units correctional insulin but did not receive the 10 units they should have received for carbohydrate coverage. For lunch, correction factor was since the patient had started eating ~25 minutes prior. * BSG re-checked at 1430 today, remained above goal at 332 mg/dL. Administered a 5 unit bolus dose of IV insulin to move patient towards goal ahead of dinner time to prevent possible overcorrection if patient would remain elevated. * Will also add overnight check at midnight to continue to trend. 01/16/23: * BSG's [id number] throughout the day yesterday. Patient received 20 units of basal insulin and 3 units of bolus insulin. * Patient was started on a separate scale for breakfast on 01/15 in observance of repeated lunchtime hyperglycemia; Lunchtime BSG that day was well below goal at 70 mg/dL. NovoLog parameters were slightly loosened this AM, and lunchtime BSG shot up to 343 mg/dL. Patient received the same number of units at breakfast to cover the same number of carbs as the prior morning. * Fasting BSG today 119 mg/dL. Will carefully reduce dose of Lantus for this type 1 patient to prevent further downtrend of fasting BSG's. 01/14/23: * BSGs labile yesterday, ranging 64-210 mg/dL * Received 30 units of insulin (20 units of basal and 10 units of bolus) * Second day of hyperglycemia at lunchtime - will tighten breakfast Novolog parameters * Will maintain looser parameters for rest of day given hypoglycemia yesterday 01/12/23: * is a 62 year old male w/ long-standing T1DM, admitted for inpatient IV antibiotic therapy of MSSA bacteremia secondary to foot infection * BSGs labile so far this admission, ranging 47-331 mg/dL * Previously admitted and managed by pharmacy glycemic service in September 2022 * During this admission, patient required 25-30 units of basal insulin. Will start conservatively in light of hypoglycemia this morning. PLAN FOR INPATIENT GLYCEMIC CONTROL: * Basal insulin * Lantus 22 units SC daily * Bolus insulin * NovoLog per scale ACHS or Q6hrs while NPO * Goal Range: Low 110 mg/dL - High 140 mg/dL * Correction Factor: 25 mg/dL/unit at breakfast, 45 mg/dL/unit at lunch, dinner, HS * Nutritional / Prandial insulin per carb ratio of 1 unit per 9 grams CHO consumed at breakfast, 12 grams CHO consumed at lunch, dinner, HS
[2023-01-17] MEDS: ENOXAPARIN INJ 30 MG/0.3 ML SYR SQ SCH (18:07)
[2023-01-17] MEDS ORDERED: MoRPHine SULFATE PCA 30 MG/30 ML IV PRN (19:01)
[2023-01-17] MEDS ORDERED: NALOXONE HCL 0.4 MG/1 ML VIAL/CARP IV PRN (19:01)
[2023-01-17] MEDS: SODIUM CHLORIDE 0.9% 1000ML 1,000 ML IV SCH (19:44)
[2023-01-17] MEDS: ASPIRIN 81 MG ECTAB PO SCH (21:17)
[2023-01-17] MEDS: oxyCODONE HCL 15 MG TABCR (OxyCONTIN) PO SCH (21:17)
[2023-01-17] MEDS: MELATONIN 3 MG TAB PO PRN (21:19)
--- NOTE | 2023-01-17 21:37 | Hospitalist Progress Note ---
Date of Service January 17, 2023 Assessment & Plan (1) MSSA bacteremia: Plan: -Admit to med/tele -The patient is currently afebrile, hemodynamically stable, and stable on RA -Received 3L of IV fluids, a dose of Zosyn, and repeat blood cultures in the ED -Initial lactate was 2.8, will get STAT repeat to monitor for clearance -Confirmed blood and wound cultures from [facility] were positive for MSSA and MRSA negative >Sensitivities show him to be pansensitive -Will continue with Cefazolin 2gm IV q8h moving forward -Will consult infectious disease: appreciate input awaiting MARNIE. -Dr. Collier has been consulted: appreciate input -The patient will lkely need PICC placement prior to DC, this could be complicated with his current history of Opioid abuse -Will start Sub-Q lovenox for DVT PPX will continue to monitor. ct scan of foot does not appear to show any asbcess, inflammatory markers and WBC do not show any improvement. After reaching out to ID on 01/15, given that patient is not trending in the right direction despite being on correct antibiotic, Dr. Collier, removed hardware on 01/15. Will continue antibiotics, anticipate, labs may have a delayed response. Still no improvement on 01/17. Dr. Collier obtained culture on wounds with purulent discharge on 01/17 PM. Due to his uncontrolled pain, increased oxycontin to 30 mg PO BID. Will place on NURSING UNIT MANAGER pump with morphine. (2) Surgical site infection: Plan: -See MSSA bacteremia (3) Opioid abuse: Plan: -Patient has a long history of chronic pain from previous back injury per his -Was reportedly taking Oxcotin 15 mg q12h until 1-2 weeks ago, however, review of his PDMP shows a gap with his last fill to be in March of 2022 and then some recently in 01/15 -Patient is not acting like an opiate naive patient. -He has been taking his 15 mg PO Oxycodone q4-6 hours instead of the q8h as prescribed -Pain control may be difficult with him, for now will start with 650 mg PO Tylenol q6h, and 3 mg IV morphine q3h prn pain 4,5,6 + -If pain control is difficult during his admission would recommend pain management consult prior to discharge (4) Thrombocytosis: Plan: -Platelets noted to be 602 today -Liver function WNL, patient is asymptomatic -Could be secondary due to his recent procedure -Continue to trend CBC with diff for now (5) Depression: Plan: -Continue sertraline (6) Poorly controlled type 1 diabetes mellitus: Plan: -Monitor BSG q4h for now, goal is 110-140 -Will decrease basal from home dose of 25 qam to 20 to avoid hypoglycemia -CF of 50 and CR of 15 -Pharmacy glycemic consult placed -Continue to monitor (7) Hypertension: Plan: -Was taken off of lisinopril recently for orthostatic -Would continue to monitor for now to see if he needs to be restated on an antihypertensive prior to discharge (8) Dyslipidemia: Plan: -Continue atorvastatin Admission and Anticipated Discharge Date Admission Date: January 11, 2023 Subjective Patient reports pain is not controlled. HIs is at bedside and is updated. Review of Systems Review of Systems: All systems reviewed & are unremarkable except as noted in HPI & below Physical Exam Physical Exam: General: In no acute distress, stated age, well-nourished, good hygiene HEENT: Normocephalic, atraumatic, no scleral icterus, pupils around round, symmetrical, and reactive to light, moist mucus membranes, trachea midline, no thyromegaly Chest/Pulm: No respiratory distress, symmetrical chest expansion, clear breath sounds throughout Cardiac: RRR, no murmurs noted Abdomen: Negative for ascites and bruising, normoactive bowel sounds, soft, non- tender to palpation throughout Musculoskeletal: right foot wrapped, fixator now removed. Extremities: Radial, dorsalis pedis, and posterior tibial pulses are intact and symmetrical, hardware no removed Skin: As described above Neuro: Alert and oriented to person, place, month, year, and president, no focal defects, CN II-XII tested and intact, baseline left foot drop noted Psych: No acute distress, calm and cooperative during the exam Results & Data Results & Data Vital Signs (Past 12 Hours) Vital Signs Temp Pulse Pulse Resp BP Pulse Ox O2 Del Method 01/17/23 19:00 37.0 C 101 H 18 141/72 H 97 Room Air 01/17/23 14:20 107 H 01/17/23 15:09 36.7 C 102 H 18 150/71 H 97 Room Air PG Care Time/CCT Total # of Minutes Spent Total Time Spent with Patient: Total time spent is greater than 50% in coordination of care (as documented) at patient's floor/unit and/or counseling patient: Coding Level of Care Code 11438 SUB INP/OBS CARE 350MIN Diagnoses MSSA bacteremia R78.81; B95.61 Surgical site infection T81.49XA Opioid abuse F11.10 Thrombocytosis D75.839 Depression F32.A Poorly controlled type 1 diabetes mellitus E10.65 Hypertension I10 Dyslipidemia E78.5
[2023-01-18] MEDS ORDERED: INSULIN ASPART PER UNIT CHARGE SC SCH
[2023-01-18] MEDS: ACETAMINOPHEN 325 MG TAB PO SCH ×3 (05:36→16:40)
[2023-01-18] MEDS: ceFAZolin 2000MG 2,000 MG/15 ML SYR IV SCH (06:10)
[2023-01-18 08:26] LABS: Hematocrit (blood only) 19.9 % (42.0-52.0); Hemoglobin 6.7 g/dl (14.0-18.0); Mean Corpuscular Hemoglobin 29.8 pg (25.0-34.0); Mean Corpuscular Hgb Conc 33.7 g/dL (32.0-36.0); Mean Corpuscular Volume 88.4 fL (80.0-100.0); Mean Platelet Volume 8.6 fL (9.4-12.4); Platelet Count 446 K/uL (130-400); RDW Coefficient of Variation 12.8 % (11.5-14.5); Red Blood Count 2.25 M/uL (4.70-6.10); White Blood Count 17.13 K/ul (4.8-10.8)
[2023-01-18 08:38] LABS: Basophils # (auto) 0.03 K/uL (0-0.2); Basophils % (auto) 0.2 %; Eosinophils # (auto) 0.15 K/uL (0-0.50); Eosinophils % (auto) 0.9 %; Immature Granulocytes % (auto) 0.6 %; Lymphocytes # (auto) 1.07 K/uL (1.2-3.4); Lymphocytes % (auto) 6.2 %; Monocytes # (auto) 1.12 K/uL (0.11-0.59); Monocytes % (auto) 6.5 %; Neutrophils # (auto) 14.66 K/uL (1.40-6.50); Neutrophils % (auto) 85.6 %; Ovalocytes 1+; Polychromasia 1+
[2023-01-18] MEDS: ATORVASTATIN 40 MG TAB PO SCH (08:38)
[2023-01-18] MEDS: SERTRALINE HCL 100 MG TABLET PO SCH (08:38)
[2023-01-18] MEDS: PANTOprazole 40 MG TAB PO SCH (08:38)
[2023-01-18] MEDS: POLYETHYLENE (MIRALAX) 17 GM PACK PO SCH ×2 (08:39→21:52)
[2023-01-18] MEDS: DOCUSATE SODIUM/SENNA 50/8.6MG TAB PO SCH (08:39)
[2023-01-18 08:40] LABS: BUN Creatinine Ratio 19.6 (10-20); C Reactive Protein 13.31 mg/dl (0-0.5); Calcium 8.4 mg/dl (8.6-10.3); Creatinine Clr Calc Pharmacy 139.5 ml/min; Est GFR (African American) 128.5 ml/min; Est GFR (Non-African American) 110.9 ml/min; Potassium 3.6 mmol/L (3.5-5.1)
[2023-01-18] MEDS: oxyCODONE HCL 15 MG TABCR (OxyCONTIN) PO SCH ×2 (08:42→21:50)
[2023-01-18] MEDS: LANTUS PER UNIT CHARGE SQ SCH (08:43)
[2023-01-18] MEDS: INSULIN ASPART PER UNIT CHARGE SC SCH ×4 (08:43→21:54)
--- NOTE | 2023-01-18 09:04 | Hospitalist Progress Note ---
Date of Service January 18, 2023 Assessment & Plan (1) MSSA bacteremia: Plan: acute on chronic, previously treated with iv vanco x 1 dose and po cephalexin, continued surgical site purulence lead to hardwar removal on 01/15/23 -Confirmed blood and wound cultures from [facility] were positive for MSSA and MRSA negative >Sensitivities show him to be pansensitive -ID recommends continue with Cefazolin 2gm IV q8h moving forward -repeat echo is negative for endocarditis -The patient will lkely need IV placement prior to DC, this could be complicated with his current history of Opioid abuse -Will start Sub-Q lovenox for DVT PPX will continue to monitor. ct scan of foot does not appear to show any abscess, inflammatory markers and WBC do not show any improvement. . Dr. Collier obtained culture on wounds with purulent discharge on 01/17 PM. Due to his uncontrolled pain, increased oxycontin to 30 mg PO BID. Will place on HOT SHOT pump with morphine. (2) Chronic pain: Plan: Patient has a long history of chronic pain from previous back injury per his -Was reportedly taking Oxcotin 15 mg q12h until 1-2 weeks ago, patient will be stopped from his HOT SHOT pump reverted back to OxyContin 15 every 24 with 15 every 6 as needed breakthrough with also parenteral Dilaudid for breakthrough starting gabapentin for neuropathy pain at 300 3 times daily and continue with scheduled Tylenol (3) Thrombocytosis: Plan: acute self limited-Platelets noted to be 602 today -Liver function WNL, patient is asymptomatic -Could be secondary due to his recent procedure -Continue to trend CBC with diff for now (4) Depression: Plan: -Chronic and stable sertraline (5) Poorly controlled type 1 diabetes mellitus: Plan: acute on chronic poor control - -basal insulin plus variable SSI parameters based on meal time -Pharmacy glycemic consult placed -Continue to monitor (6) Dyslipidemia: Plan: -Chronic stable, Continue atorvastatin (7) Acute blood loss anemia: Plan: Patient has been significantly anemic since November 13. This may be anemia of chronic disease or could be acute blood loss anemia postoperatively. We will check iron B12 folic acid and transfuse 2 units packed red blood cells Admission and Anticipated Discharge Date Admission Date: January 11, 2023 Subjective Patient was having severe pain but fell asleep during my visit. He says he still having drainage from his foot the part that I can see did not show any drainage. He has significant anemia today which may be acute blood loss anemia from recent surgical intervention Physical Exam Physical Exam: Patient was alert he was in no significant distress he is claims his foot pain was significant cannot describe the quality or nature of the pain and fell asleep during my interview Results & Data Results & Data Vital Signs (Past 12 Hours) Vital Signs Temp Pulse Pulse Resp BP Pulse Ox O2 Del Method 01/18/23 08:04 97.5 F L 98 H 16 166/73 H 95 Room Air 01/18/23 04:00 98.1 F 98 H 18 153/72 H 97 Room Air 01/17/23 23:52 136 H 01/17/23 22:42 98.4 F 105 H 18 150/79 H 94 Room Air Laboratory Results Reviewed CBC Reviewed PRP Reviewed CRP PG Care Time/CCT Total # of Minutes Spent Total Time Spent with Patient: Total time spent is greater than 50% in coordination of care (as documented) at patient's floor/unit and/or counseling patient: Coding Level of Care Code 30603 SUB INP/OBS CARE 3/50MIN Diagnoses MSSA bacteremia R78.81; B95.61 Chronic pain G89.29 Thrombocytosis D75.839 Depression F32.A Poorly controlled type 1 diabetes mellitus E10.65 Dyslipidemia E78.5 Acute blood loss anemia D62
--- NOTE | 2023-01-18 10:23 | Infectious Disease Progress Nt ---
Date of Service January 18, 2023 Assessment & Plan (1) MSSA bacteremia: (2) Surgical site infection: Plan 62 yo M with history of DM1, HTN, HLD, memory deficit, chronic pain on opioids, R Charcot arthropathy and R foot lisfranc deformity s/p repair, closed reduction, application of external fixation, and tendon Achilles lengthening (12/25/22) who presents with MSSA foot infection c/b MSSA bacteremia. He had been discharged to SNF on 12/27 and was noncompliant with NWB on R foot,and signed himself out AMA on 01/05. While at home, he has had multiple falls due to ambulatory dysfunction with his ex fix. He was seen in podiatry clinic on 01/09, where he reported feeling ill, vomiting, and pt had erythema over the dorsal foot with concern for possible pin tract infection. He was therefore sent to the ED on 01/09, where labs showed WBC 16, Cr 1.7. Blood cultures and wound culture were collected, pt was given a dose of vancomycin, and he was discharged with cephalexin 500 mg QID. The BCx ended up growing MSSA in 2/ bottles, and the wound culture grew MSSA, so he was advised to present back to the hospital. On presentation 01/11, he was afebrile, WBC 14.1, Cr 1.33, lactate 2.8, CRP 21.6. XR R foot showed soft tissue swelling with postop changes, exam limited due to ex fix hardware. He was noted to have purulence coming from multiple pin sites. A CT on 01/12 (without contrast) did not demonstrate a drainable collection. The MSSA bacteremia is likely arising from his R foot infection, and fortunately appears to have rapidly cleared since 01/11. A TTE on 01/12 showed no evidence of mass or vegetation. He was started on cefazolin on admission, but the R foot continued to have a lot of drainage from around the pin sites and incision, and his WBC continued to rise. Therefore, he was taken to the OR on 01/15 for removal of the external fixation. All hardware is now removed, and his leg is in a splint with plan for twice daily dressings with close monitoring of the leg for signs of worsening infection. Micro: 01/17 R foot wound culture: pending 01/12 BCx x2: NG 01/11 BCx x2: NG 01/09 Wound culture: MSSA (S clinda, TMP/SMX, tetra) 01/09 BCx x2: MSSA in 2/4 bottles Abx: Cefazolin 01/11 - present Cephalexin 01/09 - 01/11 Vanc 01/09 Problems: #R foot lisfranc deformity s/p repair and external fixation (12/25/22) c/b MSSA pin site infection #MSSA bacteremia #Leukocytosis #Plate in R knee Recommendations: -Discussed with Dr. Collier about concerns with pt's persistent leukocytosis. Most pin sites appear to be healed over, but 2 sites with drainage which he sent for culture on 01/17. Will broaden to vanc and cefepime for now, but plan to de- escalate back to cefazolin if no additional organisms grow on culture -Continue to trend WBC -If persistent leukocytosis, can consider imaging of RLE to assess for underlying abscess -As all hardware is now removed, will be able to treat MSSA bacteremia/SSTI with 2 weeks of IV antibiotics via midline/PICC. Will continue to follow Admission and Anticipated Discharge Date Admission Date: January 11, 2023 Subjective This patient recommendation is based on a telemedicine consult request which was completed asynchronously through chart review and information provided by the primary physician. The patient was not seen or examined today. The evaluation is consultative in nature and all patient care and treatment decisions can either be accepted or rejected by the patient's primary hospital-based treating physician using their own independent medical judgment for their patient. 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 Culture of R foot drainage sent last night WBC 18.1 --> 17.1 Continues on cefazolin Review of System Pt was not seen Physical Exam Physical Exam: Pt was not seen Results & Data Vital Signs (Past 12 Hours) Vital Signs Temp Pulse Pulse Resp BP Pulse Ox O2 Del Method 01/18/23 08:00 111 H 01/18/23 08:04 36.4 C L 98 H 16 166/73 H 95 Room Air 01/18/23 04:00 36.7 C 98 H 18 153/72 H 97 Room Air 01/17/23 23:52 136 H 01/17/23 22:42 36.9 C 105 H 18 150/79 H 94 Room Air Laboratory Results Short CBC 01/18/23 Range/Units 07:52 WBC 17.13 H (4.8-10.8) K/ul Hgb 6.7 L* (14.0-18.0) g/dl Hct 19.9 L* (42.0-52.0) % Plt Count 446 H (130-400) K/uL BMP 01/18/23 07:52 Sodium 135 L Potassium 3.6 Chloride 100 Carbon Dioxide 28 BUN 11 Creatinine 0.56 L Glucose 141 H Calcium 8.4 L Medications Administered Current Inpatient Medications Acetaminophen (Acetaminophen 325 Mg Tab) 650 mg PO Q6H [facility] Stop: 02/10/23 16:29 Last Admin: 01/18/23 10:02 Dose: Not Given Aspirin (Aspirin 81 Mg Ectab) 81 mg PO QPM [facility] Stop: 02/10/23 20:59 Last Admin: 01/17/23 21:17 Dose: 81 mg Atorvastatin Calcium (Atorvastatin 40 Mg Tab) 40 mg PO DAILY [facility] Stop: 02/11/23 08:59 Last Admin: 01/18/23 08:38 Dose: 40 mg Dextrose (Dextrose 50% 50 Ml Syringe) 25 - 50 ml IV UD PRN; Protocol PRN Reason: Hypoglycemia Protocol Stop: 02/10/23 15:46 Last Admin: 01/15/23 16:37 Dose: 50 ml Enoxaparin Sodium (Enoxaparin Inj 30 Mg/0.3 Ml Syr) 30 mg SQ Q24H [facility] Stop: 02/10/23 18:44 Last Admin: 01/17/23 18:07 Dose: 30 mg Glucagon (Glucagon For Inj 1 Mg Vial) 1 mg SQ UD PRN; Protocol PRN Reason: Hypoglycemia Protocol Stop: 02/10/23 15:46 Glucose (Glucose 10 Tab/Tube) 4 - 8 tab PO UD PRN; Protocol PRN Reason: Hypoglycemia Treatment Stop: 02/10/23 15:46 Glucose (Glucose 40% Gel 15 Gm Tube) 15 - 30 gm PO UD PRN; Protocol PRN Reason: Hypoglycemia Protocol Stop: 02/10/23 15:46 Cefazolin Sodium (Ancef 2000mg) 2,000 mg in 15 mls @ 3.75 mls/min IV Q8H [facility] Stop: 01/25/23 21:59 Last Admin: 01/18/23 06:10 Dose: 3.75 mls/min Sodium Chloride (Nss 1000ml) 1,000 mls @ 15 mls/hr IV .Q24H [facility] Stop: 01/31/23 19:02 Last Admin: 01/17/23 19:44 Dose: 15 mls/hr Insulin Aspart (Insulin Aspart Per Unit Charge) 0 units SC 0730 [facility] Stop: 02/14/23 07:29 Last Admin: 01/18/23 08:43 Dose: 8 units Insulin Aspart (Insulin Aspart Per Unit Charge) 0 units SC 1130,1630,2100 [facility] Stop: 02/13/23 16:29 Last Admin: 01/17/23 21:17 Dose: Not Given Insulin Glargine (Lantus Per Unit Charge) 22 units SQ DAILY [facility] Stop: 02/11/23 07:59 Last Admin: 01/18/23 08:43 Dose: 22 units Melatonin (Melatonin 3 Mg Tab) 3 mg PO HS PRN PRN Reason: Sleep Stop: 02/10/23 21:23 Last Admin: 01/17/23 21:19 Dose: 3 mg Miscellaneous (Carbohydrates For Hypoglycemia ) 15 - 30 gm PO UD PRN PRN Reason: Hypoglycemia Protocol Stop: 02/10/23 15:46 Miscellaneous Information (Pharmacy Glycemic Mgmt Consult) 1 each N/A UD PRN PRN Reason: Consult: Type 1 DM Stop: 02/10/23 15:46 Morphine Sulfate (Morphine Sulfate Beader Tender 30 Mg/30 Ml) 30 mg IV PRN PRN; Protocol PRN Reason: 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 Titration Stop: 01/31/23 19:00 Last Admin: 01/17/23 19:44 Dose: 30 mg Naloxone HCl (Naloxone Hcl 0.4 Mg/1 Ml Vial/Carp) 0.1 mg IV Q5M PRN; Protocol PRN Reason: Oversedation/Resp Depression Stop: 01/31/23 19:00 Oxycodone HCl (Oxycodone Hcl 15 Mg Tabcr (Oxycontin)) 30 mg PO BID [facility] Stop: 01/31/23 20:59 Last Admin: 01/18/23 08:42 Dose: 30 mg Pantoprazole Sodium (Pantoprazole 40 Mg Tab) 40 mg PO DAILY [facility] Stop: 02/11/23 08:59 Last Admin: 01/18/23 08:38 Dose: 40 mg Polyethylene Glycol (Polyethylene (Miralax) 17 Gm Pack) 17 gm PO BID [facility] Stop: 02/11/23 14:14 Last Admin: 01/18/23 08:39 Dose: 17 gm Senna/Docusate Sodium (Docusate Sodium/Senna 50/8.6mg Tab) 1 tab PO QAM [facility] Stop: 02/11/23 14:29 Last Admin: 01/18/23 08:39 Dose: 1 tab Sertraline HCl (Sertraline Hcl 100 Mg Tablet) 100 mg PO QAM [facility] Stop: 02/11/23 08:59 Last Admin: 01/18/23 08:38 Dose: 100 mg
[2023-01-18] MEDS ORDERED: VANCOMYCIN CONSULT ACTIVE PRN (10:24)
[2023-01-18] MEDS ORDERED: VANCOMYCIN HCL 1,750 MG in SODIUM CHLORIDE 0.9% 500 ML IV ONE (11:00)
[2023-01-18] MEDS: CEFEPIME 2,000 MG in SYRINGE 0 ML IV SCH ×2 (11:00→18:09)
--- NOTE | 2023-01-18 12:31 | Pharmacy Report ---
Pharmacy PK ABX Note - Date of Service January 18, 2023 - Assessment and Plan Assessment 62 year old M who had been receiving ancef for MSSA bacteremia. Antibiotics broadened today to vancomycin and cefepime due to persistent leukocytosis. ID following patient. Plan Vancomycin * Loading dose: 1750 mg x 1 * Maintenance dose: 1250 mg IV every 12 hours * Regimen is predicted to achieve target AUC/RAJESH of 400-600 mg/L.hr * Will plan to order random level if plan is to continue >48 hours Pharmacy will continue to follow and will adjust dose/frequency as necessary. Thank you. Pharmacy has transitioned to AUC monitoring for vancomycin. AUC/RAJESH is the preferred PK/PD target and is associated with decreased risk of nephrotoxicity compared to traditional trough targets.
[2023-01-18] MEDS ORDERED: oxyCODONE HCL IR 5 MG TAB (IMMEDIATE RELEASE) PO PRN (17:44)
[2023-01-18] MEDS ORDERED: SODIUM CHLORIDE 0.9% 250 ML IV PRN (17:50)
[2023-01-18] MEDS: VANCOMYCIN HCL 1,250 MG in SODIUM CHLORIDE 0.9% 250 ML IV SCH (18:08)
[2023-01-18] MEDS: ENOXAPARIN INJ 30 MG/0.3 ML SYR SQ SCH (18:08)
[2023-01-18 18:52] LABS: Iron 14 mcg/dl (35-175); Unsaturated Iron Binding Cap 138 mcg/dl (155-355)
[2023-01-18] MEDS ORDERED: VANCOMYCIN HCL 1,250 MG in SODIUM CHLORIDE 0.9% 500 ML IV SCH (19:00)
[2023-01-18] MEDS: SODIUM CHLORIDE 0.9% 1000ML 1,000 ML IV SCH (19:44)
[2023-01-18] MEDS: ACETAMINOPHEN 500 MG TAB PO SCH (21:50)
[2023-01-18] MEDS: ASPIRIN 81 MG ECTAB PO SCH (21:53)
[2023-01-18] MEDS: GABAPENTIN 300 MG CAP PO SCH (22:48)
[2023-01-18] MEDS: MELATONIN 3 MG TAB PO PRN (22:48)
[2023-01-18] MEDS: HYDROmorphone INJ 0.5 MG/0.5 ML SYR IV PRN (23:42)
[2023-01-19] MEDS: CEFEPIME 2,000 MG in SYRINGE 0 ML IV SCH ×2 (04:03→11:43)
[2023-01-19] MEDS: VANCOMYCIN HCL 1,250 MG in SODIUM CHLORIDE 0.9% 250 ML IV SCH ×2 (06:39→16:08)
[2023-01-19] MEDS: INSULIN ASPART PER UNIT CHARGE SC SCH ×3 (08:36→17:44)
[2023-01-19] MEDS: SERTRALINE HCL 100 MG TABLET PO SCH (08:47)
[2023-01-19] MEDS: ATORVASTATIN 40 MG TAB PO SCH (08:47)
[2023-01-19] MEDS: oxyCODONE HCL 15 MG TABCR (OxyCONTIN) PO SCH (08:47)
[2023-01-19] MEDS: DOCUSATE SODIUM/SENNA 50/8.6MG TAB PO SCH (08:47)
[2023-01-19] MEDS: ACETAMINOPHEN 500 MG TAB PO SCH ×2 (08:47→13:46)
[2023-01-19] MEDS: GABAPENTIN 300 MG CAP PO SCH ×2 (08:47→13:46)
[2023-01-19] MEDS: PANTOprazole 40 MG TAB PO SCH (08:48)
[2023-01-19] MEDS: POLYETHYLENE (MIRALAX) 17 GM PACK PO SCH (08:48)
[2023-01-19] MEDS ORDERED: LANTUS PER UNIT CHARGE SQ SCH (09:00)
[2023-01-19] MEDS: HYDROmorphone INJ 0.5 MG/0.5 ML SYR IV PRN ×3 (09:38→17:51)
[2023-01-19 10:37] LABS: Basophils # (auto) 0.05 K/uL (0-0.2); Basophils % (auto) 0.3 %; Eosinophils # (auto) 0.14 K/uL (0-0.50); Eosinophils % (auto) 0.9 %; Hematocrit (blood only) 27.3 % (42.0-52.0); Hemoglobin 9.3 g/dl (14.0-18.0); Immature Granulocytes % (auto) 0.6 %; Lymphocytes # (auto) 0.55 K/uL (1.2-3.4); Lymphocytes % (auto) 3.5 %; Mean Corpuscular Hemoglobin 29.4 pg (25.0-34.0); Mean Corpuscular Hgb Conc 34.1 g/dL (32.0-36.0); Mean Corpuscular Volume 86.4 fL (80.0-100.0); Mean Platelet Volume 8.8 fL (9.4-12.4); Monocytes # (auto) 0.91 K/uL (0.11-0.59); Monocytes % (auto) 5.8 %; Neutrophils % (auto) 88.9 %; Platelet Count 477 K/uL (130-400); RDW Coefficient of Variation 12.9 % (11.5-14.5); RDW Standard Deviation 41.1 fL (36.4-46.3); Red Blood Count 3.16 M/uL (4.70-6.10); White Blood Count 15.65 K/ul (4.8-10.8)
[2023-01-19 11:02] LABS: C Reactive Protein 12.92 mg/dl (0-0.5); Est GFR (African American) 121.6 ml/min; Est GFR (Non-African American) 104.9 ml/min
--- NOTE | 2023-01-19 12:32 | Infectious Disease Progress Nt ---
Date of Service January 19, 2023 Assessment & Plan (1) MSSA bacteremia: (2) Surgical site infection: Plan 62 yo M with history of DM1, HTN, HLD, memory deficit, chronic pain on opioids, R Charcot arthropathy and R foot lisfranc deformity s/p repair, closed reduction, application of external fixation, and tendon Achilles lengthening (12/25/22) who presents with MSSA foot infection c/b MSSA bacteremia. He had been discharged to SNF on 12/27 and was noncompliant with NWB on R foot,and signed himself out AMA on 01/05. While at home, he has had multiple falls due to ambulatory dysfunction with his ex fix. He was seen in podiatry clinic on 01/09, where he reported feeling ill, vomiting, and pt had erythema over the dorsal foot with concern for possible pin tract infection. He was therefore sent to the [facility] ED on 01/09, where labs showed WBC 16, Cr 1.7. Blood cultures and wound culture were collected, pt was given a dose of vancomycin, and he was discharged with cephalexin 500 mg QID. The BCx ended up growing MSSA in 2/4 bottles, and the wound culture grew MSSA, so he was advised to present back to the hospital. On presentation 01/11, he was afebrile, WBC 14.1, Cr 1.33, lactate 2.8, CRP 21.6. XR R foot showed soft tissue swelling with postop changes, exam limited due to ex fix hardware. He was noted to have purulence coming from multiple pin sites. A CT on 01/12 (without contrast) did not demonstrate a drainable collection. He was started on cefazolin on admission, but the R foot continued to have a lot of drainage from around the pin sites and incision, and his WBC continued to rise. Therefore, he was taken to the OR on 01/15 for removal of the external fixation. All hardware is now removed, and his leg is in a splint with plan for twice daily dressings with close monitoring of the leg for signs of worsening infection. The MSSA bacteremia is likely arose from his R foot infection, and fortunately appears to have rapidly cleared since 01/11. A TTE on 01/12 showed no evidence of mass or vegetation. Pt had persistent leukocytosis to 17-18, with concern for slow improvement in his R foot infection and concern that this could place him at risk for osteomyelitis of the nearby bone. In discussion with Dr. Collier of podiatry, the cefazolin was broadened to vanc and cefepime on 01/18, pending a repeat culture of drainage from the old pin sites on 01/17. The culture is currently growing Staph species. Micro: 01/17 R foot wound culture: Staph species 01/12 BCx x2: NG 01/11 BCx x2: NG 01/09 Wound culture: MSSA (S clinda, TMP/SMX, tetra) 01/09 BCx x2: MSSA in 10/28 bottles Abx: Vanc 01/18 - present Cefepime 01/18 - present Cefazolin 01/11 - 01/18 Cephalexin 01/09 - 01/11 Vanc 01/09 Problems: #R foot lisfranc deformity s/p repair and external fixation (12/25/22) c/b MSSA pin site infection #MSSA bacteremia #Leukocytosis #Plate in R knee Recommendations: -Follow-up 01/17 wound culture -If above culture grows MSSA, would narrow the vanc and cefepime back to cefazolin 2 g IV q8h. -Continue to trend WBC -If concern for slow improvement, can consider imaging of RLE to assess for underlying abscess -Should be able to treat MSSA bacteremia with 2 weeks of IV antibiotics via midline/PICC (01/11 - 01/24) -May need extension of antibiotics beyond 01/24 for complicated MSSA R foot SSTI, but can be PO Will continue to follow. Please note that there will be no ID notes over the weekend. If questions or concerns arise, please contact the Infectious Disease Call Center and ask to speak with the covering ID physician. Dr. Stefanie Doe will take over on Sunday. Admission and Anticipated Discharge Date Admission Date: January 11, 2023 Subjective This patient recommendation is based on a telemedicine consult request which was completed asynchronously through chart review and information provided by the primary physician. The patient was not seen or examined today. The evaluation is consultative in nature and all patient care and treatment decisions can either be accepted or rejected by the patient's primary hospital-based treating physician using their own independent medical judgment for their patient. Time Spent Reviewing Chart: 11 - 20 minutes Afebrile WBC 17.1 --> 15.7 01/17 Wound culture growing Staph species Review of System Pt was not seen Physical Exam Physical Exam: Pt was not seen Results & Data Vital Signs (Past 12 Hours) Vital Signs Temp Pulse Pulse Resp BP BP Pulse Ox 01/19/23 11:56 36.7 C 91 H 18 149/82 H 95 01/19/23 08:03 37.0 C 89 16 162/85 H 97 01/19/23 07:54 100 H 01/19/23 03:05 36.8 C 85 18 154/80 H 97 01/19/23 03:05 36.8 C 85 20 163/89 H 97 01/19/23 02:05 36.7 C 86 20 155/85 H 95 01/19/23 01:35 36.8 C 86 20 161/80 H 96 01/19/23 01:20 36.8 C 90 20 163/77 H 01/19/23 01:02 36.9 C 88 20 171/76 H 94 01/19/23 00:25 36.7 C 90 20 161/75 H 94 O2 Del Method O2 Flow Rate 01/19/23 11:56 Room Air 01/19/23 08:03 Room Air 01/19/23 07:54 01/19/23 03:05 0 01/19/23 03:05 01/19/23 02:05 01/19/23 01:35 01/19/23 01:20 01/19/23 01:02 01/19/23 00:25 Laboratory Results Short CBC 01/19/23 Range/Units 10:14 WBC 15.65 H (4.8-10.8) K/ul Hgb 9.3 L (14.0-18.0) g/dl Hct 27.3 L (42.0-52.0) % Plt Count 477 H (130-400) K/uL BMP 01/19/23 10:14 Creatinine 0.64 Medications Administered Current Inpatient Medications Acetaminophen (Acetaminophen 500 Mg Tab) 1,000 mg PO TID [facility] Stop: 02/17/23 20:59 Last Admin: 01/19/23 08:47 Dose: 1,000 mg Aspirin (Aspirin 81 Mg Ectab) 81 mg PO QPM [facility] Stop: 02/10/23 20:59 Last Admin: 01/18/23 21:53 Dose: 81 mg Atorvastatin Calcium (Atorvastatin 40 Mg Tab) 40 mg PO DAILY [facility] Stop: 02/11/23 08:59 Last Admin: 01/19/23 08:47 Dose: 40 mg Dextrose (Dextrose 50% 50 Ml Syringe) 25 - 50 ml IV UD PRN; Protocol PRN Reason: Hypoglycemia Protocol Stop: 02/10/23 15:46 Last Admin: 01/15/23 16:37 Dose: 50 ml Enoxaparin Sodium (Enoxaparin Inj 30 Mg/0.3 Ml Syr) 30 mg SQ Q24H [facility] Stop: 02/10/23 18:44 Last Admin: 01/18/23 18:08 Dose: 30 mg Gabapentin (Gabapentin 300 Mg Cap) 300 mg PO TID [facility] Stop: 02/17/23 20:59 Last Admin: 01/19/23 08:47 Dose: 300 mg Glucagon (Glucagon For Inj 1 Mg Vial) 1 mg SQ UD PRN; Protocol PRN Reason: Hypoglycemia Protocol Stop: 02/10/23 15:46 Glucose (Glucose 10 Tab/Tube) 4 - 8 tab PO UD PRN; Protocol PRN Reason: Hypoglycemia Treatment Stop: 02/10/23 15:46 Glucose (Glucose 40% Gel 15 Gm Tube) 15 - 30 gm PO UD PRN; Protocol PRN Reason: Hypoglycemia Protocol Stop: 02/10/23 15:46 Hydromorphone HCl (Hydromorphone Inj 0.5 Mg/0.5 Ml Syr) 0.5 mg IV Q4H PRN PRN Reason: Severe Pain (Scale 7, 8, 9,10) Stop: 02/01/23 17:44 Last Admin: 01/19/23 09:38 Dose: 0.5 mg Sodium Chloride (Nss 1000ml) 1,000 mls @ 15 mls/hr IV .Q24H [facility] Stop: 01/31/23 19:02 Last Admin: 01/18/23 19:44 Dose: Not Given Cefepime HCl 2,000 mg/ Syringe 20 mls @ 5 mls/min IV Q8H [facility]; Protocol Stop: 02/01/23 10:59 Last Admin: 01/19/23 11:43 Dose: 5 mls/min Vancomycin HCl 1,250 mg/ (Sodium Chloride) 275 mls @ 200 mls/hr IV Q12H [facility]; Protocol Stop: 02/01/23 17:59 Last Admin: 01/19/23 06:39 Dose: 200 mls/hr Insulin Aspart (Insulin Aspart Per Unit Charge) 0 units SC 0730 [facility] Stop: 02/14/23 07:29 Last Admin: 01/19/23 08:36 Dose: 5 units Insulin Aspart (Insulin Aspart Per Unit Charge) 0 units SC 1130,1630,2100 [facility] Stop: 02/13/23 16:29 Last Admin: 01/18/23 21:54 Dose: Not Given Insulin Glargine (Lantus Per Unit Charge) 20 units SQ DAILY [facility] Stop: 02/11/23 07:59 Last Admin: 01/19/23 08:37 Dose: 20 units Melatonin (Melatonin 3 Mg Tab) 3 mg PO HS PRN PRN Reason: Sleep Stop: 02/10/23 21:23 Last Admin: 01/18/23 22:48 Dose: 3 mg Miscellaneous (Carbohydrates For Hypoglycemia ) 15 - 30 gm PO UD PRN PRN Reason: Hypoglycemia Protocol Stop: 02/10/23 15:46 Miscellaneous Information (Pharmacy Glycemic Mgmt Consult) 1 each N/A UD PRN PRN Reason: Consult: Type 1 DM Stop: 02/10/23 15:46 Miscellaneous Information (Vancomycin Consult Active) 1 each N/A UD PRN PRN Reason: Consult Stop: 02/17/23 10:23 Naloxone HCl (Naloxone Hcl 0.4 Mg/1 Ml Vial/Carp) 0.1 mg IV Q5M PRN; Protocol PRN Reason: Oversedation/Resp Depression Stop: 01/31/23 19:00 Oxycodone HCl (Oxycodone Hcl 15 Mg Tabcr (Oxycontin)) 15 mg PO BID [facility] Stop: 02/01/23 20:59 Last Admin: 01/19/23 08:47 Dose: 15 mg Oxycodone HCl (Oxycodone Hcl Ir 5 Mg Tab (Immediate Release)) 15 mg PO Q6H PRN PRN Reason: Moderate Pain 4-6/10 Stop: 02/01/23 17:43 Pantoprazole Sodium (Pantoprazole 40 Mg Tab) 40 mg PO DAILY [facility] Stop: 02/11/23 08:59 Last Admin: 01/19/23 08:48 Dose: 40 mg Polyethylene Glycol (Polyethylene (Miralax) 17 Gm Pack) 17 gm PO BID [facility] Stop: 02/11/23 14:14 Last Admin: 01/19/23 08:48 Dose: 17 gm Senna/Docusate Sodium (Docusate Sodium/Senna 50/8.6mg Tab) 1 tab PO QAM [facility] Stop: 02/11/23 14:29 Last Admin: 01/19/23 08:47 Dose: 1 tab Sertraline HCl (Sertraline Hcl 100 Mg Tablet) 100 mg PO QAM [facility] Stop: 02/11/23 08:59 Last Admin: 01/19/23 08:47 Dose: 100 mg
--- NOTE | 2023-01-19 14:07 | Pharmacy Report ---
Pharmacy Glycemic Short Note 2 - Date of Service January 19, 2023 - Glycemic Short BSG Results (Last 24 hours): 01/18/23 01/18/23 01/19/23 16:44 20:08 07:47 POC Glucose 93 99 91 01/19/23 11:47 POC Glucose 233 H OUTPATIENT ANTIDIABETIC REGIMEN: * Follows w/ [facility] * Recently switched to Novolog pump (Omnipod) * ICR: 11, CF 42 (BSG > 120) * Pump basal rates: -03: 0.85 units/hr, -: 0.75 units/hr, -: 0.85 units/hr (20 units/day) HbA1c: 9.4% (12/22/22) ASSESSMENT: 01/19/23: * BSGs yesterday [id number] mg/dL. T2DM diet continued, no new glycemic stressors added. * Fasting BSG today 91 mg/dL, significant downtrend observed over past few days. Will reduce Lantus dose by 10%, back to 20 units in AM. * Luchtime BSG elevated at 233 mg/dL. BSG's in second half of day on lower end; upper end of goal range was increased from 140 to 160 mg/dL to curb overcorrection. Will not adjust AM-specific NovoLog parameters today as the patient did go low on 25-7 parameters on 01/15/23; may reconsider if lunchtime BSG's continue to prove difficult to maintain within range. 01/17/23: * Fasting BSG today well above goal at 275 mg/dL. Lunchtime BSG also elevated at 345 mg/dL. * Following receipt of the high lunchtime BSG, I contacted the patient's nurse who stated that the patient had eaten prior to BSG checks at both breakfast and lunch today. At breakfast time, the patient received 5 units correctional insulin but did not receive the 10 units they should have received for carbohydrate coverage. For lunch, correction factor was since the patient had started eating ~25 minutes prior. * BSG re-checked at 1430 today, remained above goal at 332 mg/dL. Administered a 5 unit bolus dose of IV insulin to move patient towards goal ahead of dinner time to prevent possible overcorrection if patient would remain elevated. * Will also add overnight check at midnight to continue to trend. 01/16/23: * BSG's [id number] throughout the day yesterday. Patient received 20 units of basal insulin and 3 units of bolus insulin. * Patient was started on a separate scale for breakfast on 01/15 in observance of repeated lunchtime hyperglycemia; Lunchtime BSG that day was well below goal at 70 mg/dL. NovoLog parameters were slightly loosened this AM, and lunchtime BSG shot up to 343 mg/dL. Patient received the same number of units at breakfast to cover the same number of carbs as the prior morning. * Fasting BSG today 119 mg/dL. Will carefully reduce dose of Lantus for this type 1 patient to prevent further downtrend of fasting BSG's. 01/14/23: * BSGs labile yesterday, ranging 64-210 mg/dL * Received 30 units of insulin (20 units of basal and 10 units of bolus) * Second day of hyperglycemia at lunchtime - will tighten breakfast Novolog parameters * Will maintain looser parameters for rest of day given hypoglycemia yesterday 01/12/23: * is a 62 year old male w/ long-standing T1DM, admitted for inpatient IV antibiotic therapy of MSSA bacteremia secondary to foot infection * BSGs labile so far this admission, ranging 47-331 mg/dL * Previously admitted and managed by pharmacy glycemic service in September 2022 * During this admission, patient required 25-30 units of basal insulin. Will start conservatively in light of hypoglycemia this morning. PLAN FOR INPATIENT GLYCEMIC CONTROL: * Basal insulin * Lantus 20 units SC daily * Bolus insulin * NovoLog per scale ACHS or Q6hrs while NPO * Goal Range: Low 120 mg/dL - High 160 mg/dL * Correction Factor: 25 mg/dL/unit at breakfast, 45 mg/dL/unit at lunch, dinner, HS * Nutritional / Prandial insulin per carb ratio of 1 unit per 9 grams CHO consumed at breakfast, 12 grams CHO consumed at lunch, dinner, HS
--- NOTE | 2023-01-19 17:54 | Discharge Summary ---
Date of Service January 19, 2023 Admission HPI Per Admitting Provider Austen is a 62 year old male with a PMH significant for poorly controlled DM I, HTN, hyperlipidemia, memory deficit, chronic pain with opioid abuse, and recent right foot fractures S/P external fixation by Dr. Collier at [facility] at the beginning of the month, who was sent to the ED today at the recommendation of Dr. Collier for possible right foot infection. Per the ED staff, the patient was seen in Dr. Collier's office on 01/09 and was noted to have nausea and vomiting with signs of infection at his surgical site. Cultures were taken and he was started on Keflex at that time. The patient was called today due to wound and blood cultures growing pansensitive MSSA, Dr. Collier recommenced he come to the ED for further assessment and IV antibiotics. In the ED the patient was found to be afebrile, hemodynamically stable, and stable on RA. Labs were remarkable for a leukocytosis of 14 with left shift of 12, platelet count of 602, lactate of 2.8, CRP of 21, and covid 19 negative. Xray of the right foot was read as "Soft tissue swelling with postoperative changes as above. Exam is limited secondary to external fixation hardware". Prior to admission the patient was given a dose of zosyn and a total of 3L IV fluids. At the time of the exam the patient was lying in bed in no acute distress with his sitting bedside. They state that the patient was initially discharged to a SNF after his surgery as he is supposed to be NWB on the right foot but also has a history of foot drop in the left foot. He signed himself out AMA on 01/05 and has been at home since. Since being home the patient had a had two falls due to ambulatory dysfunction with his external fixator. He fell backwards once and forwards once, he denies losing consciousness either time. They confirm that he was having nausea/vomiting on 01/09 but this has resolved since starting the Keflex. He denies recent fevers, chills, chest pain, SOB, abd pain, nausea, vomiting, diarrhea, dysuria, hematuria since being home. Due to chronic pain the patient is typically on 15 mg q12h of Oxycotin and was prescribed 15 mg PO Oxycodone q8h prn pain since his procedure. He has reportedly run out of his Oxycotin and has not yet been able to get an appoint ment to have it refilled. He has been taking the oxycodone q4-6h as he states that it does not last long enough for the full 8 hours. He has had previous issues with syncope due to orthostatic hypotension and was recently taken off his Lisinopril for this. His states that the SNF had started the patient on metoprolol but they have not been continuing it since he left. I explained that due to his gram positive bacteremia we will need to obtain an echo to evaluate for endocarditis and he will need approximately 6 weeks of IV antibiotics. We discussed code status, the patient is a full code and would want his to make medical decisions for him if he cannot make them himself. Please refer to Dr. Romero's attestation for any changes to the treatment plan Principal Diagnosis acute on chronic diabetic foot infection hardware removal opiate abuse history chronic pain Discharge Exam awake and alert endorses pain control foot bandaged, able to move toes, cap refill present Discharge Data Allergies Allergy/AdvReac Type Severity Reaction Status Date / Time pantoprazole [From Protonix] AdvReac Vomiting Verified 01/11/23 16:16 Consultations 01/11/23 15:28 ED Decision to Admit Stat 01/11/23 16:07 Consult Orthopedic Surgery Routine 01/11/23 16:51 Consult Infectious Diseases Routine Procedures Performed Operation Date: 01/15/23 11:55 Actual Procedures p Removal of Right Lower Extremity External Fixator(Right) - Baltazar Collier, MICHAEL, MS Ordered Studies 01/12/23 21:38 CT foot LT wo con Routine 01/15/23 17:48 FL foot RT 2V Routine Hospital Course (1) MSSA bacteremia: acute on chronic, previously treated with iv vanco x 1 dose and po cephalexin, continued surgical site purulence lead to hardware removal on 01/15/23 -Confirmed blood and wound cultures from [facility] were positive for MSSA and MRSA negative >Sensitivities show him to be pansensitive -ID recommends 2 week total treatment, will have on vancomycin and Cefepime until 01/24 and further if clinically required, may consider de escalation to po if staph resultes on culture vancomycin trough with 01/21 dose, i spoke to pharmacist at [facility] -repeat echo is negative for endocarditis ct scan of foot does not appear to show any abscess, inflammatory markers and WBC do not show any improvement. . Dr. Collier obtained culture on wounds with purulent discharge on 01/17 PM. staph species not final at discharge (2) Chronic pain: Patient has a long history of chronic pain from previous back injury per his -Was reportedly taking Oxcotin 15 mg q12h until 1-2 weeks ago, patient will be stopped from his [employer] pump reverted back to OxyContin 15 every 24 with 15 every 6 as needed breakthrough starting gabapentin for neuropathy pain at 300 3 times daily and continue with scheduled Tylenol (3) Thrombocytosis: acute self limited (4) Depression: -Chronic and stable sertraline (5) Poorly controlled type 1 diabetes mellitus: acute on chronic poor control - -basal insulin plus variable SSI parameters based on meal time (6) Dyslipidemia: -Chronic stable, Continue atorvastatin (7) Acute blood loss anemia: Patient has been significantly anemic since November 13. This may be anemia of chronic disease or could be acute blood loss anemia postoperatively. transfuse 2 units packed red blood cells Total Time Total Time Spent Total Time Spent (In Minutes): It required greater than 30 minutes to prepare this patient for discharge Discharge Plan Discharge Items Patient Disposition: Transfer Inpatient Rehab Fac Reason For Visit: RIGHT FOOT INFECTION Discharge Diagnosis: right foot and ankle diabetic infection hardware removal chronic pain syndrome with previous addiction Activity: Per Instructions section Activity Comment: per PT and OT Non-emergency contact: Primary Care Provider and Surgeon Call non-emergency contact if: your symptoms worsen Follow-up/Referrals: Mohit Rodriguez MD [Primary Care Provider] - Baltazar Collier DPM, MS [Physician] - Diet: Carb Consistent or DM2 Addtl Attending Provider Instructions: Infectious disease has recommended 2-week total antibiotic treatment which would be last dose on January 24 Given recent changes in white blood cell count recommendations to continue vancomycin and cefepime until that time unless cultures result with a more favorable staph species with sensitivities however these may not result until near the end of antibiotic treatment course Recommending outpatient follow-up with Dr. Collier for continued surveillance and also to decide of treatment course should be extended Patient's pain management has been challenging he certainly does have a history of addiction but at the time of discharge he has been tolerant of returning to his home OxyContin dose with backup as needed oral pain medications Certainly his wounds will need attended and dressed but nonweightbearing status has been a challenge for him while in our hospital Pending Studies at Discharge: Yes (final culture results ) Stand-Alone Forms: My New [facility] Skilled Items Patient informed of condition?: Yes DNR: No Discharge Level of Care: Acute rehab Communicable Disease: No Discharge Prognosis: Stable Lines: US Guided Peripheral IV Urinary Catheter: No Medications and DC Order Prescriptions: New insulin glargine [Lantus U-100 Insulin] 100 unit/mL Solution 20 unit subcut DAILY Qty: 10 0RF polyethylene glycol 3350 [Miralax] 17 gram Powder In Packet 17 g PO BID Qty: 60 0RF sennosides-docusate sodium [Senokot-S] 8.6-50 mg Tablet 1 tab PO QAM Qty: 30 0RF acetaminophen [Tylenol Extra Strength] 500 mg Tablet 1,000 mg PO TID Qty: 90 0RF gabapentin 300 mg Capsule 300 mg PO TID Qty: 90 0RF insulin aspart U-100 100 unit/mL (3 mL) insulin pen 1 unit subcut 0730 Qty: 15 0RF Rx Instructions: -Goal BSG Range: Low 110 mg/dL, High 140 mg/dL --Correction Factor: 25 mg/dL/unit --Carbohydrate ratio = 9 g/unit --BSGs ACHS if eating, q6h if npo insulin aspart U-100 100 unit/mL (3 mL) insulin pen 1 unit subcut 1130,1630,2100 Qty: 15 0RF Rx Instructions: --Goal BSG Range: Low 120 mg/dL, High 160 mg/dL --Correction Factor: 45 mg/dL/unit --Carbohydrate ratio = 15 g/unit --BSGs ACHS if eating, q6h if npo vancomycin 1.25 gram recon soln 1.25 g IV Q12H Qty: 10 0RF Rx Instructions: last dose 01/24 please check trough dose with sunday am dose cefepime 1 gram recon soln 1 g IM Q8H Qty: 15 0RF Continued (DME) Omnipod 5 G6 Intro Kit (Gen 5) Cartridge See Rx Instructions .Route Qty: 1 0RF Rx Instructions: Change pod every 3 days (DME) Omnipod 5 G6 Pods (Gen 5) Cartridge See Rx Instructions .Route Qty: 10 11RF Rx Instructions: Change pod every 3 days atorvastatin 40 mg tablet 40 mg PO DAILY Medical Marijuana 1 dose inhalation DIRECTED PRN (Reason: NEEDED) Rx Instructions: PT'S SPOUSE NOT SURE HOW OR HOW OFTEN USES. oxycodone 15 mg Tablet 15 mg PO Q6H PRN (Reason: Breakthrough Pain) (DME) pen needle,diabetic, disp unit 32 gauge x 1/4" needle See Rx Instructions .Route Qty: 100 0RF Rx Instructions: As directed testosterone cypionate 200 mg/mL oil 200 mg IM WK Rx Instructions: on hold aspirin 81 mg Tablet,Delayed Release (Dr/Ec) 81 mg PO QPM esomeprazole magnesium [Nexium] 40 mg capsule,delayed release(DR/EC) 40 mg PO QAM oxycodone [OxyContin] 15 mg tablet,oral only,ext.rel.12 hr 15 mg PO Q12 sertraline 100 mg tablet 100 mg PO QAM Discontinued sildenafil 100 mg tablet 100 mg PO DAILY PRN (Reason: Sexual Activity) Rx Instructions: TAKE 1 HOUR PRIOR TO SEXUAL ACTIVITY. MAX 1 DOSE PER 24 HOURS insulin glargine [Lantus Solostar U-100 Insulin] 100 unit/mL (3 mL) insulin pen 25 unit subcut QAM Qty: 3 3RF Patient Comments: 1/2 dose ibuprofen 600 mg tablet 600 mg PO TID PRN (Reason: Pain) insulin aspart U-100 [Novolog FlexPen U-100 Insulin] 100 unit/mL (3 mL) insulin pen See Rx Instructions subcut TIDM Rx Instructions: subcutaneously three times daily with meals; Per sliding scale TDD 30 units Discharge Orders: Discharge Order (Routine); Ordered 01/19/23 Ordered By: Nomi Butler Admission Data Admit Date/Time: 01/11/23 15:47 Attending Provider: Nomi Butler Admit Provider: Mohti Romero Primary Care Provider: Mohit Rodriguez Other Providers: [facility] ; Mohit Romero ; Baltazar Collier ; Kyra Wright ; Jonatan Baca ; Areli Boogie ; Dejan Joy ; Fanny Coates ; Stefanie Doe ; Chelsey Matta ; Uma Duran ; Susannah Mederos Other Interventions: Discharge Summary Assessment (RN) Last Done: 01/19/23 17:22 Coding Level of Care Code 51851 INP/OBS DISCH >30 MIN Diagnoses MSSA bacteremia R78.81; B95.61 Chronic pain G89.29 Thrombocytosis D75.839 Depression F32.A Poorly controlled type 1 diabetes mellitus E10.65 Dyslipidemia E78.5 Acute blood loss anemia D62
[2023-01-20] MEDS ORDERED: VANCOMYCIN LEVEL ONE (05:00)
== END 2023-01-19 18:00 | DRG 560 ==
LOC: ED 12:39 → 2W 15:47 → SUATTDRO 15:47 → 2W 17:50

== ENCOUNTER 2023-01-23 14:24 | Inpatient (IN) ==
--- NOTE | 2023-01-23 15:05 | Emergency Department Note ---
Impression & Plan Infection of right foot ED Provider Note INFORMANT: Patient and ED PROVIDER(S): Baltazar Cristobal MD CHIEF COMPLAINT: Right foot infection PLAN: Disposition: Admitted Condition: Guarded Outpatient prescription management: none Referral: None MEDICAL DECISION MAKING: Patient presented because of right foot infection. I did take down his dressing. There was significant purulence. He had blood cultures And wound culture performed. The patient was treated with IV Zofran and Dilaudid. The patient was also given IV Zosyn after discussion with ED pharmacist and culture results reviewed. Patient was found to have an elevated white blood cell count. His ECG was unremarkable. Patient's chemistries were unremarkable. Patient did have elevated inflammatory markers. CT imaging of the foot was performed. I did discuss the case with his surgeon, Dr. Collier. He will evaluate the patient in the ER. CT imaging performed and was concerning for abscess. I did discuss this with Dr. Collier. He did evaluate the patient in the ER. [facility] The patient be evaluated in the ER and admitted for further management. During internal medicine evaluation Dr. Collier felt the patient needed surgical intervention and he was taken to the operating room for further management. Discussed with strategic accounts manager After review of the information above and other included data, I feel the patient requires admission. Triage Nursing notes reviewed and agree them. Vital Signs: reviewed and remarkable for hypertension Prior /Outside records reviewed: Prior hospitalization records reviewed. Rehab facility records reviewed. Differential diagnosis: Etiologies such as cellulitis, abscess, MRSA infection, dermatitis, drug eruption, necrotizing fasciitis, vascular, as well as others were entertained. Diagnostics, as interpreted by me: EC Lead ECG performed and revealed Normal sinus rhythm at 100, normal [place], QRS normal. No elevation or depression. No PACs or PVCs Cardiac Monitoring: Cardiac monitoring ordered by me: The patient was placed on continuous cardiac monitoring and observed. It revealed a sinus tachycardic rhythm at 102 bpm Medical decision rules: none Imaging studies: CT scan as above. I refer you to the EMR for further details. HPI: The patient is a 62 year old male who presents to the Emergency Room with complaints of right foot pain. Patient had an operation on the right foot by Dr. Collier on December 25. Patient has been dealing with a foot infection and is currently residing at [facility]. He was reported to have increased drainage and bluish discoloration of the right great toe over the last 2 to 3 days. Patient was transferred back to the hospital for reevaluation. Patient is unsure when the dressing was changed last. The patient has taken no medication for relieving factors. Current pain is rated as 7/10. Pt denies LOC, headache, fevers, chills, diaphoresis, visual changes, neck pain, chest pain, breathing difficulties, nausea, vomiting, abdominal pain, back pain, uri nary symptoms,weakness, lymphadenopathy, rash, or other complaints. PAST MEDICAL HISTORY: See Below, diabetes, hypertension PAST SURGICAL HISTORY: See Below, ORIF right foot SOCIAL HISTORY: See Below, non-smoker HOME MEDICATIONS: See Below ALLERGIES: See Below VITALS: See Below PHYSICAL EXAMINATION: GENERAL: Awake, alert, uncomfortable-appearing, in no distress HENT: Normocephalic, atraumatic. Oropharynx unremarkable. EYES: Normal conjunctiva. Sclera non-icteric. NECK: Inspection normal. Non-tender. Supple. No nuchal rigidity. FROM. No masses. RESPIRATORY: Clear to auscultation. No wheezes. No rales. Normal respiratory effort. CARDIAC: Normal rate. Normal rhythm. No murmurs. No rubs. Extremities warm and well perfused. Pulses equal. No JVD. GI: Soft, non-distended. No tenderness to palpation. No rebound or guarding. No masses. RECTAL: Deferred. MUSCULOSKELETAL: Atraumatic. Chest examination reveals no tenderness. The back is symmetrical on inspection without obvious abnormality. There is no CVA tenderness to palpation. No joint edema. LOWER EXTREMITIES: Calves are equal size bilaterally and non-tender. There is bluish discoloration of the medial right foot with moderate edema. There is drainage noted from several aspects of the dorsal part of the foot. This is some purulence in appearance. No crepitus. Decreased sensation to the toes noted. Decreased cap refill and the great toe is cool to the touch. NEURO: Mild memory impairment with detailed questioning otherwise normal sensorium. Decreased sensation and motor function in the right foot. No deficits noted in upper or left lower extremities. SKIN: No rash or jaundice noted. Past Med/Surg History Medical History (Updated 01/23/23 @ 21:17 by Rafael Kurtz MD) Encounter for pre-operative examination GERD (gastroesophageal reflux disease) Glaucoma History of seizure last seizure "couple years ago" -- d/t hypoglycemia Hypertension Infection of right foot Memory deficit Osteoarthritis Poorly controlled type 1 diabetes mellitus Surgical History History of appendectomy History of knee surgery Rt History of tonsillectomy Family History Other No family history of adverse response to anesthesia Social History Smoking Status: Never smoker Second Hand Exposure: No; Do You Dip or Chew Tobacco: No; Hx Alcohol Use: Yes Alcohol type: beer Hx Substance Use: No Preferred Language: Mauritian Communication Ability: Effective [employer] Travel Counselor Required: No Beliefs That Will Affect Care: None Current Living Situation: Spouse Feels Safe at Home: Yes Assistive Devices: Cane and Wheelchair Allergies Allergies Allergy/AdvReac Type Severity Reaction Status Date / Time pantoprazole [From Protonix] AdvReac Vomiting Verified 01/11/23 16:16 Home Meds Home Medications Medication Instructions Recorded Confirmed Medical Marijuana 1 dose inhalation DIRECTED PRN 02/06/22 01/23/23 NEEDED oxycodone 15 mg tablet 15 mg PO Q6H PRN Breakthrough Pain 02/09/22 01/23/23 aspirin 81 mg tablet,delayed 81 mg PO QPM 02/17/22 01/23/23 release esomeprazole magnesium 40 mg 40 mg PO QAM 02/17/22 01/23/23 capsule,delayed release (Nexium) oxycodone 15 mg tablet,crush 15 mg PO Q12 02/17/22 01/23/23 resistant,extended release 12 hr (OxyContin) sertraline 100 mg tablet 100 mg PO QAM 02/17/22 01/23/23 testosterone cypionate 200 mg/mL 200 mg IM WK 02/17/22 01/23/23 intramuscular oil atorvastatin 40 mg tablet 40 mg PO DAILY 12/22/22 01/23/23 Previous Rx's Medication Instructions Recorded pen needle,diabetic, disp unit 32 #100 ea 02/11/22 gauge x 1/4", remover and disposal unit Omnipod 5 G6 Intro Kit (Gen 5) #1 ea 12/07/22 subcutaneous cartridge with controller (insulin pump cart,auto,BT-cntr) Omnipod 5 G6 Pods (Gen 5) (insulin #10 ea 12/07/22 pump cart,automated,BT) acetaminophen 500 mg tablet 1,000 mg PO TID #90 tabs 01/19/23 (Tylenol Extra Strength) cefepime 1 gram solution for 1 g IM Q8H #15 ea 01/19/23 injection gabapentin 300 mg capsule 300 mg PO TID #90 caps 01/19/23 insulin aspart U-100 100 unit/mL 1 unit (0.01 mL) subcut 0730 #15 mL 01/19/23 (3 mL) subcutaneous pen insulin aspart U-100 100 unit/mL 1 unit (0.01 mL) subcut 01/19/23 (3 mL) subcutaneous pen 1130,1630,2100 #15 mL insulin glargine 100 unit/mL 20 unit (0.2 mL) subcut DAILY #10 01/19/23 subcutaneous solution (Lantus mL U-100 Insulin) polyethylene glycol 3350 17 gram 17 g PO BID #60 ea 01/19/23 oral powder packet (Miralax) sennosides 8.6 mg-docusate sodium 1 tab PO QAM #30 tabs 01/19/23 50 mg tablet (Senokot-S) vancomycin 1.25 gram intravenous 1.25 g IV Q12H #10 ea 01/19/23 solution Results & Data (ED) Vital Signs Vital Signs - 24 hr 01/23/23 14:36 01/23/23 14:43 01/23/23 14:39 Temperature 37.3 C 37.3 C Temperature Source Oral Oral Pulse Rate 96 H 96 H Pulse Rate [Apical] Pulse Rate [Right Finger] 96 H Pulse Rate from SpO2 Sensor Pulse Rhythm Pulse Rhythm [Apical] Pulse Rhythm [Right Finger] Regular Pulse Strength [Apical] Pulse Strength [Right Finger] Normal Respiratory Rate 18 18 Respiratory Effort / Characteristics Non-Labored Spontaneous Non-Labored Spontaneous Respiratory Depth Normal Normal Respiratory Pattern Regular Regular Blood Pressure 167/109 H Blood Pressure [Right Arm] 167/109 H Blood Pressure Mean 128 Blood Pressure Mean [Right Arm] 128 Blood Pressure Position Lying Blood Pressure Position [Right Arm] Pulse Oximetry 99 99 Oxygen Delivery Method Room Air Room Air Sepsis Recent Fever Within 48 Hours No Sepsis New/Unexplained Change in Mental Status No Sepsis Action Taken by Nursing No Action Required 01/23/23 15:43 01/23/23 15:48 01/23/23 16:30 Temperature 37 C Temperature Source Oral Pulse Rate 98 H Pulse Rate [Apical] Pulse Rate [Right Finger] 98 H 99 H Pulse Rate from SpO2 Sensor Pulse Rhythm Regular Pulse Rhythm [Apical] Pulse Rhythm [Right Finger] Regular Regular Pulse Strength [Apical] Pulse Strength [Right Finger] Normal Normal Respiratory Rate 18 19 18 Respiratory Effort / Characteristics Non-Labored Spontaneous Non-Labored Spontaneous Respiratory Depth Normal Normal Respiratory Pattern Regular Regular Blood Pressure Blood Pressure [Right Arm] 187/103 H 174/87 H Blood Pressure Mean Blood Pressure Mean [Right Arm] 131 116 Blood Pressure Position Blood Pressure Position [Right Arm] Lying Lying Pulse Oximetry 94 99 99 Oxygen Delivery Method Room Air Room Air Room Air Sepsis Recent Fever Within 48 Hours Sepsis New/Unexplained Change in Mental Status Sepsis Action Taken by Nursing 01/23/23 17:01 01/23/23 18:30 01/23/23 14:36 Temperature 37 C Temperature Source Oral Pulse Rate 96 H Pulse Rate [Apical] 103 H Pulse Rate [Right Finger] 101 H Pulse Rate from SpO2 Sensor 96 H Pulse Rhythm Pulse Rhythm [Apical] Regular Pulse Rhythm [Right Finger] Regular Pulse Strength [Apical] Normal Pulse Strength [Right Finger] Normal Respiratory Rate 18 18 10 L Respiratory Effort / Characteristics Non-Labored Spontaneous Respiratory Depth Normal Respiratory Pattern Blood Pressure Blood Pressure [Right Arm] 179/130 H 177/93 H Blood Pressure Mean Blood Pressure Mean [Right Arm] 146 121 Blood Pressure Position Blood Pressure Position [Right Arm] Sitting Lying Pulse Oximetry 98 98 100 Oxygen Delivery Method Room Air Room Air Sepsis Recent Fever Within 48 Hours Sepsis New/Unexplained Change in Mental Status Sepsis Action Taken by Nursing 01/23/23 15:00 01/23/23 15:30 01/23/23 16:00 Temperature Temperature Source Pulse Rate 95 H 96 H 100 H Pulse Rate [Apical] Pulse Rate [Right Finger] Pulse Rate from SpO2 Sensor 95 H 97 H Pulse Rhythm Pulse Rhythm [Apical] Pulse Rhythm [Right Finger] Pulse Strength [Apical] Pulse Strength [Right Finger] Respiratory Rate 27 H 15 20 Respiratory Effort / Characteristics Respiratory Depth Respiratory Pattern Blood Pressure Blood Pressure [Right Arm] Blood Pressure Mean Blood Pressure Mean [Right Arm] Blood Pressure Position Blood Pressure Position [Right Arm] Pulse Oximetry 99 100 Oxygen Delivery Method Sepsis Recent Fever Within 48 Hours Sepsis New/Unexplained Change in Mental Status Sepsis Action Taken by Nursing 01/23/23 16:10 01/23/23 16:10 01/23/23 16:30 Temperature Temperature Source Pulse Rate 99 H Pulse Rate [Apical] Pulse Rate [Right Finger] Pulse Rate from SpO2 Sensor 102 H Pulse Rhythm Pulse Rhythm [Apical] Pulse Rhythm [Right Finger] Pulse Strength [Apical] Pulse Strength [Right Finger] Respiratory Rate 4 L Respiratory Effort / Characteristics Respiratory Depth Respiratory Pattern Blood Pressure 187/103 H 174/87 H Blood Pressure [Right Arm] Blood Pressure Mean 131 116 Blood Pressure Mean [Right Arm] Blood Pressure Position Blood Pressure Position [Right Arm] Pulse Oximetry 99 Oxygen Delivery Method Sepsis Recent Fever Within 48 Hours Sepsis New/Unexplained Change in Mental Status Sepsis Action Taken by Nursing 01/23/23 16:30 01/23/23 16:30 01/23/23 17:00 Temperature Temperature Source Pulse Rate 97 H 101 H Pulse Rate [Apical] Pulse Rate [Right Finger] Pulse Rate from SpO2 Sensor 99 H 101 H Pulse Rhythm Pulse Rhythm [Apical] Pulse Rhythm [Right Finger] Pulse Strength [Apical] Pulse Strength [Right Finger] Respiratory Rate 16 8 L Respiratory Effort / Characteristics Respiratory Depth Respiratory Pattern Blood Pressure 174/87 H Blood Pressure [Right Arm] Blood Pressure Mean 116 Blood Pressure Mean [Right Arm] Blood Pressure Position Blood Pressure Position [Right Arm] Pulse Oximetry 99 97 Oxygen Delivery Method Sepsis Recent Fever Within 48 Hours Sepsis New/Unexplained Change in Mental Status Sepsis Action Taken by Nursing 01/23/23 17:01 01/23/23 17:01 01/23/23 17:30 Temperature Temperature Source Pulse Rate 104 H 103 H Pulse Rate [Apical] Pulse Rate [Right Finger] Pulse Rate from SpO2 Sensor 102 H 103 H Pulse Rhythm Pulse Rhythm [Apical] Pulse Rhythm [Right Finger] Pulse Strength [Apical] Pulse Strength [Right Finger] Respiratory Rate 12 12 Respiratory Effort / Characteristics Respiratory Depth Respiratory Pattern Blood Pressure 179/130 H Blood Pressure [Right Arm] Blood Pressure Mean 146 Blood Pressure Mean [Right Arm] Blood Pressure Position Blood Pressure Position [Right Arm] Pulse Oximetry 100 100 Oxygen Delivery Method Sepsis Recent Fever Within 48 Hours Sepsis New/Unexplained Change in Mental Status Sepsis Action Taken by Nursing 01/23/23 18:00 01/23/23 18:23 01/23/23 18:23 Temperature Temperature Source Pulse Rate 106 H 104 H Pulse Rate [Apical] Pulse Rate [Right Finger] Pulse Rate from SpO2 Sensor 105 H Pulse Rhythm Pulse Rhythm [Apical] Pulse Rhythm [Right Finger] Pulse Strength [Apical] Pulse Strength [Right Finger] Respiratory Rate 18 15 Respiratory Effort / Characteristics Respiratory Depth Respiratory Pattern Blood Pressure 184/95 H Blood Pressure [Right Arm] Blood Pressure Mean 124 Blood Pressure Mean [Right Arm] Blood Pressure Position Blood Pressure Position [Right Arm] Pulse Oximetry 100 Oxygen Delivery Method Sepsis Recent Fever Within 48 Hours Sepsis New/Unexplained Change in Mental Status Sepsis Action Taken by Nursing 01/23/23 18:30 01/23/23 18:30 01/23/23 19:00 Temperature Temperature Source Pulse Rate 101 H 113 H Pulse Rate [Apical] Pulse Rate [Right Finger] Pulse Rate from SpO2 Sensor 102 H Pulse Rhythm Pulse Rhythm [Apical] Pulse Rhythm [Right Finger] Pulse Strength [Apical] Pulse Strength [Right Finger] Respiratory Rate 9 L 17 Respiratory Effort / Characteristics Respiratory Depth Respiratory Pattern Blood Pressure 177/93 H Blood Pressure [Right Arm] Blood Pressure Mean 121 Blood Pressure Mean [Right Arm] Blood Pressure Position Blood Pressure Position [Right Arm] Pulse Oximetry 96 Oxygen Delivery Method Sepsis Recent Fever Within 48 Hours Sepsis New/Unexplained Change in Mental Status Sepsis Action Taken by Nursing 01/23/23 19:23 01/23/23 19:23 Temperature Temperature Source Pulse Rate 102 H Pulse Rate [Apical] Pulse Rate [Right Finger] Pulse Rate from SpO2 Sensor 102 H Pulse Rhythm Pulse Rhythm [Apical] Pulse Rhythm [Right Finger] Pulse Strength [Apical] Pulse Strength [Right Finger] Respiratory Rate 23 Respiratory Effort / Characteristics Respiratory Depth Respiratory Pattern Blood Pressure 182/91 H Blood Pressure [Right Arm] Blood Pressure Mean 121 Blood Pressure Mean [Right Arm] Blood Pressure Position Blood Pressure Position [Right Arm] Pulse Oximetry 97 Oxygen Delivery Method Sepsis Recent Fever Within 48 Hours Sepsis New/Unexplained Change in Mental Status Sepsis Action Taken by Nursing Laboratory Data 01/23/23 13:05 01/23/23 13:05 Lab Results 01/23/23 01/23/23 01/23/23 Range/Units 13:05 13:05 13:05 WBC 18.23 H (4.8-10.8) K/ul RBC 3.27 L (4.70-6.10) M/uL Hgb 9.6 L (14.0-18.0) g/dl Hct 29.5 L (42.0-52.0) % MCV 90.2 (80.0-100.0) fL MCH 29.4 (25.0-34.0) pg MCHC 32.5 (32.0-36.0) g/dL RDW Std Deviation 42.2 (36.4-46.3) fL RDW Coeff of Denise 12.8 (11.5-14.5) % Plt Count 584 H (130-400) K/uL MPV 8.8 L (9.4-12.4) fL Immature Gran % (Auto) 0.4 % Neut % (Auto) 84.1 % Lymph % (Auto) 6.7 % [place] % (Auto) 7.2 % Eos % (Auto) 1.1 % Baso % (Auto) 0.5 % Neut # (Auto) 15.32 H (1.40-6.50) K/uL Lymph # (Auto) 1.22 (1.2-3.4) K/uL [place] # (Auto) 1.32 H (0.11-0.59) K/uL Eos # (Auto) 0.20 (0-0.50) K/uL Baso # (Auto) 0.09 (0-0.2) K/uL Immature Gran # (Auto) 0.08 (0.01-0.20) K/uL ESR (0-20) mm/hr Sodium 132 L (136-145) mmol/L Potassium 4.3 (3.5-5.1) mmol/L Chloride 101 (98-107) mmol/L Carbon Dioxide 24 (21-32) mmol/L Anion Gap 7 (3-11) BUN 19 (6-23) mg/dl Creatinine 0.78 (0.6-1.4) mg/dl Est Cr Clr Drug Dosing 97.2 ml/min Est GFR ( Amer) 112.1 ml/min Est GFR (Non-Af Amer) 96.7 ml/min BUN/Creatinine Ratio 24.4 H (10-20) Glucose 131 H (70-99(Fasting)) mg/dl POC Glucose (70-99) mg/dl Lactate (0.4-2.0) mmol/L Calcium 8.7 (8.6-10.3) mg/dl Magnesium 1.8 (1.7-2.4) mg/dl Total Bilirubin 0.3 (0.2-1.0) mg/dl Direct Bilirubin 0.0 (0-0.2) mg/dl AST 62 H (13-39) U/L ALT 33 (7-52) U/L Alkaline Phosphatase 220 H (34-104) U/L Troponin I High Sens 9.4 (0-20) pg/ml C-Reactive Protein 10.50 H (0-0.5) mg/dl Total Protein 7.0 (6.0-8.3) gm/dl Albumin 2.8 L (3.4-5.0) gm/dl Procalcitonin 0.15 (0-0.5) ng/ml Urine Color Urine Appearance (Clear) Urine pH (4.5-7.5) Ur Specific [place] (1.000-1.030) Urine Protein (Negative) Urine Glucose (UA) (Negative) Urine Ketones (Negative) Urine Blood (Negative) Urine Nitrite (Negative) Urine Bilirubin (Negative) Urine Urobilinogen (Negative) Ur Leukocyte Esterase (Negative) Urine WBC (Auto) (0-5) /hpf Urine RBC (Auto) (0-4) /hpf U Hyaline Cast (Auto) (0-5) /lpf U Epithel Cells (Auto) (0-5) /lpf Urine Bacteria (Auto) (Negative) SARS-CoV-2, RNA, NAAT (NEGATIVE) 01/23/23 01/23/23 01/23/23 Range/Units 13:05 15:45 19:32 WBC (4.8-10.8) K/ul RBC (4.70-6.10) M/uL Hgb (14.0-18.0) g/dl Hct (42.0-52.0) % MCV (80.0-100.0) fL MCH (25.0-34.0) pg MCHC (32.0-36.0) g/dL RDW Std Deviation (36.4-46.3) fL RDW Coeff of Denise (11.5-14.5) % Plt Count (130-400) K/uL MPV (9.4-12.4) fL Immature Gran % (Auto) % Neut % (Auto) % Lymph % (Auto) % [place] % (Auto) % Eos % (Auto) % Baso % (Auto) % Neut # (Auto) (1.40-6.50) K/uL Lymph # (Auto) (1.2-3.4) K/uL [place] # (Auto) (0.11-0.59) K/uL Eos # (Auto) (0-0.50) K/uL Baso # (Auto) (0-0.2) K/uL Immature Gran # (Auto) (0.01-0.20) K/uL ESR 74 H (0-20) mm/hr Sodium (136-145) mmol/L Potassium (3.5-5.1) mmol/L Chloride (98-107) mmol/L Carbon Dioxide (21-32) mmol/L Anion Gap (3-11) BUN (6-23) mg/dl Creatinine (0.6-1.4) mg/dl Est Cr Clr Drug Dosing ml/min Est GFR ( Amer) ml/min Est GFR (Non-Af Amer) ml/min BUN/Creatinine Ratio (10-20) Glucose (70-99(Fasting)) mg/dl POC Glucose (70-99) mg/dl Lactate 1.5 (0.4-2.0) mmol/L Calcium (8.6-10.3) mg/dl Magnesium (1.7-2.4) mg/dl Total Bilirubin (0.2-1.0) mg/dl Direct Bilirubin (0-0.2) mg/dl AST (13-39) U/L ALT (7-52) U/L Alkaline Phosphatase (34-104) U/L Troponin I High Sens (0-20) pg/ml C-Reactive Protein (0-0.5) mg/dl Total Protein (6.0-8.3) gm/dl Albumin (3.4-5.0) gm/dl Procalcitonin (0-0.5) ng/ml Urine Color Urine Appearance (Clear) Urine pH (4.5-7.5) Ur Specific [place] (1.000-1.030) Urine Protein (Negative) Urine Glucose (UA) (Negative) Urine Ketones (Negative) Urine Blood (Negative) Urine Nitrite (Negative) Urine Bilirubin (Negative) Urine Urobilinogen (Negative) Ur Leukocyte Esterase (Negative) Urine WBC (Auto) (0-5) /hpf Urine RBC (Auto) (0-4) /hpf U Hyaline Cast (Auto) (0-5) /lpf U Epithel Cells (Auto) (0-5) /lpf Urine Bacteria (Auto) (Negative) SARS-CoV-2, RNA, NAAT NEGATIVE (NEGATIVE) 01/23/23 01/23/23 Range/Units 20:41 Unknown WBC (4.8-10.8) K/ul RBC (4.70-6.10) M/uL Hgb (14.0-18.0) g/dl Hct (42.0-52.0) % MCV (80.0-100.0) fL MCH (25.0-34.0) pg MCHC (32.0-36.0) g/dL RDW Std Deviation (36.4-46.3) fL RDW Coeff of Denise (11.5-14.5) % Plt Count (130-400) K/uL MPV (9.4-12.4) fL Immature Gran % (Auto) % Neut % (Auto) % Lymph % (Auto) % [place] % (Auto) % Eos % (Auto) % Baso % (Auto) % Neut # (Auto) (1.40-6.50) K/uL Lymph # (Auto) (1.2-3.4) K/uL [place] # (Auto) (0.11-0.59) K/uL Eos # (Auto) (0-0.50) K/uL Baso # (Auto) (0-0.2) K/uL Immature Gran # (Auto) (0.01-0.20) K/uL ESR (0-20) mm/hr Sodium (136-145) mmol/L Potassium (3.5-5.1) mmol/L Chloride (98-107) mmol/L Carbon Dioxide (21-32) mmol/L Anion Gap (3-11) BUN (6-23) mg/dl Creatinine (0.6-1.4) mg/dl Est Cr Clr Drug Dosing ml/min Est GFR ( Amer) ml/min Est GFR (Non-Af Amer) ml/min BUN/Creatinine Ratio (10-20) Glucose (70-99(Fasting)) mg/dl POC Glucose 89 (70-99) mg/dl Lactate (0.4-2.0) mmol/L Calcium (8.6-10.3) mg/dl Magnesium (1.7-2.4) mg/dl Total Bilirubin (0.2-1.0) mg/dl Direct Bilirubin (0-0.2) mg/dl AST (13-39) U/L ALT (7-52) U/L Alkaline Phosphatase (34-104) U/L Troponin I High Sens (0-20) pg/ml C-Reactive Protein (0-0.5) mg/dl Total Protein (6.0-8.3) gm/dl Albumin (3.4-5.0) gm/dl Procalcitonin (0-0.5) ng/ml Urine Color Yellow Urine Appearance Clear (Clear) Urine pH 7.0 (4.5-7.5) Ur Specific [place] 1.014 (1.000-1.030) Urine Protein 1+ H (Negative) Urine Glucose (UA) Negative (Negative) Urine Ketones Negative (Negative) Urine Blood 1+ H (Negative) Urine Nitrite Negative (Negative) Urine Bilirubin Negative (Negative) Urine Urobilinogen Negative (Negative) Ur Leukocyte Esterase Negative (Negative) Urine WBC (Auto) 1-5 (0-5) /hpf Urine RBC (Auto) 5-10 H (0-4) /hpf U Hyaline Cast (Auto) 0 (0-5) /lpf U Epithel Cells (Auto) 0-5 (0-5) /lpf Urine Bacteria (Auto) Negative (Negative) SARS-CoV-2, RNA, NAAT (NEGATIVE) Administered Medications Discontinued Medications Hydromorphone HCl (Hydromorphone Inj 0.5 Mg/0.5 Ml Syr) 0.5 mg IV Q15M PRN PRN Reason: Pain Stop: 02/06/23 16:00 Last Admin: 01/23/23 19:20 Dose: 0.5 mg Documented By: Admin: 01/23/23 17:32 Dose: 0.5 mg Documented By: Admin: 01/23/23 16:31 Dose: 0.5 mg Documented By: Admin: 01/23/23 16:04 Dose: 0.5 mg Documented By: CRUZ Piperacillin Sod/Tazobactam Sod (Zosyn) 4.5 gm in 120 mls @ 240 mls/hr IV NOW STA Stop: 01/23/23 15:54 Last Infusion: 01/23/23 16:44 Dose: 0 mls/hr Documented By: Admin: 01/23/23 16:06 Dose: 240 mls/hr Documented By: CRUZ Ioversol (Optiray 320 100ml) 89 ml IV ONCE ONE Stop: 01/23/23 17:18 Last Admin: 01/23/23 17:17 Dose: 89 ml Documented By: DEWAYNE Imaging Data Radiologist's Impression: Foot CT 01/23/23 15:54 CT SCAN OF THE RIGHT FOOT WITH IV CONTRAST CLINICAL HISTORY: Postoperative foot infection. COMPARISON STUDY: CT scan of the right foot dated 12/21/2022. Radiographs of the right foot dated 01/11/2023. TECHNIQUE: Following the administration of 89 cc of Optiray 350, CT scan of the right foot is performed from the ankle to the base of the foot. Images are reviewed in the axial, sagittal, and coronal planes. IV contrast was administered without complication. A dose lowering technique was utilized adhering to the principles of ALARA. Note that interpretation is suboptimal without current plain film correlate. CT DOSE: 190.38 mGy.cm FINDINGS: The skeletal structures are heterogeneously osteopenic. The ankle mortise is intact. No joint effusion is seen. An Osteochondral defect is suggested in the lateral talar dome. Hardware has been removed from the right midfoot as compared to the 01/11/2023 radiographs. Extensive destructive change/fractures are again seen throughout the mid foot with numerous displaced bony fragments and erosions. There are comminuted fractures involving the middle and lateral cuneiforms, as well as subacute fractures of the second through fifth metatarsals. There are also likely small fractures involving the cuboid and medial cuneiform. There is fragmentation of the navicular. Screw tracks are noted in the calcaneus. There is a large complex gas and fluid-containing fluid collection seen along the plantar aspect of the midfoot interdigitating around the fractured bones. This extends from the distal tarsal row to distal shafts of the metatarsals, centered below the first metatarsal. This measures approximately 2.5 x 6.5 x 3.6 cm in aggregate dimension and is typical for an a bscess. There is significant surrounding soft tissue edema. Several gas containing tract extend to the dermal surface along the dorsum of the foot. Imaged portions of the Achilles tendon appear intact. IMPRESSION: Again seen are extensive fractures throughout the tarsal and metatarsal bones as above. There is increasing bony fragmentation/displacement with erosive change throughout the mid foot as detailed above, with a large gas and fluid collection containing interdigitating around these bones along the plantar aspect of the midfoot. This is highly suspicious for infection, likely representing extensive osteomyelitis with a large multiloculated abscess. ACT 112: Negative or not required by law. Electronically signed by: Lebron Beard M.D. 01/23/2023 5:48 PM Discharge Plan Visit Data Chief Complaint: Infection, Wound ED Provider: Baltazar Cristobal Discharge Problem: Infection of right foot Patient Disposition: Admitted As Inpatient Discharge Instructions Interventions: ED Discharge Assessment Last Done: 01/23/23 20:20
[2023-01-23] MEDS ORDERED: PIPERACILLIN/TAZOBACTAM 4.5 GM/120 ML BAG IV STA (15:25)
[2023-01-23 15:38] LABS: Basophils # (auto) 0.09 K/uL (0-0.2); Basophils % (auto) 0.5 %; Eosinophils % (auto) 1.1 %; Hematocrit (blood only) 29.5 % (42.0-52.0); Hemoglobin 9.6 g/dl (14.0-18.0); Immature Granulocytes # (auto) 0.08 K/uL (0.01-0.20); Immature Granulocytes % (auto) 0.4 %; Lymphocytes # (auto) 1.22 K/uL (1.2-3.4); Lymphocytes % (auto) 6.7 %; Mean Corpuscular Hemoglobin 29.4 pg (25.0-34.0); Mean Corpuscular Hgb Conc 32.5 g/dL (32.0-36.0); Mean Corpuscular Volume 90.2 fL (80.0-100.0); Mean Platelet Volume 8.8 fL (9.4-12.4); Monocytes # (auto) 1.32 K/uL (0.11-0.59); Monocytes % (auto) 7.2 %; Neutrophils # (auto) 15.32 K/uL (1.40-6.50); Neutrophils % (auto) 84.1 %; Platelet Count 584 K/uL (130-400); RDW Coefficient of Variation 12.8 % (11.5-14.5); RDW Standard Deviation 42.2 fL (36.4-46.3); Red Blood Count 3.27 M/uL (4.70-6.10); White Blood Count 18.23 K/ul (4.8-10.8)
[2023-01-23 15:54] LABS: Albumin Level 2.8 gm/dl (3.4-5.0); Bilirubin,Total 0.3 mg/dl (0.2-1.0); Calcium 8.7 mg/dl (8.6-10.3); Magnesium 1.8 mg/dl (1.7-2.4); Potassium 4.3 mmol/L (3.5-5.1)
[2023-01-23 15:59] LABS: BUN Creatinine Ratio 24.4 (10-20); Creatinine Clr Calc Pharmacy 97.2 ml/min; Est GFR (African American) 112.1 ml/min; Est GFR (Non-African American) 96.7 ml/min
[2023-01-23 16:00] LABS: Troponin I High Sensitivity 9.4 pg/ml (0-20)
[2023-01-23] MEDS: HYDROmorphone INJ 0.5 MG/0.5 ML SYR IV PRN ×4 (16:04→19:20)
[2023-01-23 16:29] LABS: Appearance Urine Clear (Clear); Bacteria Urine Automated Negative (Negative); Bilirubin Urine Negative (Negative); Blood Urine 1+ (Negative); Cast Urine Automated 0 /lpf (0-5); Color Urine Yellow; Epithelial Cell Urine Auto 0-5 /lpf (0-5); Glucose Urine UA Negative (Negative); Ketones Urine Negative (Negative); Leukocyte Esterase Urine Negative (Negative); Nitrite Urine Negative (Negative); Protein Urine 1+ (Negative); Specific Gravity Urine 1.014 (1.000-1.030); Urobilinogen Urine Negative (Negative)
[2023-01-23 16:33] LABS: C Reactive Protein 10.5 mg/dl (0-0.5)
[2023-01-23] MEDS ORDERED: OPTIRAY 320 100ml IV ONE (17:17)
--- NOTE | 2023-01-23 17:51 | CT Scan Report ---
CT SCAN OF THE RIGHT FOOT WITH IV CONTRAST CLINICAL HISTORY: Postoperative foot infection. COMPARISON STUDY: CT scan of the right foot dated 12/21/2022. Radiographs of the right foot dated 01/11. TECHNIQUE: Following the administration of 89 cc of Optiray 350, CT scan of the right foot is perform ed from the ankle to the base of the foot. Images are reviewed in the axial, sagittal, and coronal pl anes. IV contrast was administered without complication. A dose lowering technique was utilized adher ing to the principles of ALARA. Note that interpretation is suboptimal without current plain film cor relate. CT DOSE: 190.38 mGy.cm FINDINGS: The skeletal structures are heterogeneously osteopenic. The ankle mortise is intact. No eleanor nt effusion is seen. An Osteochondral defect is suggested in the lateral talar dome. Hardware has bee n removed from the right midfoot as compared to the 01/11/2023 radiographs. Extensive destructive lindquist ge/fractures are again seen throughout the mid foot with numerous displaced bony fragments and erosio ns. There are comminuted fractures involving the middle and lateral cuneiforms, as well as subacute f ractures of the second through fifth metatarsals. There are also likely small fractures involving the cuboid and medial cuneiform. There is fragmentation of the navicular. Screw tracks are noted in the calcaneus. There is a large complex gas and fluid-containing fluid collection seen along the plantar aspect of the midfoot interdigitating around the fractured bones. This extends from the distal tarsal row to distal shafts of the metatarsals, centered below the first metatarsal. This measures approxim ately 2.5 x 6.5 x 3.6 cm in aggregate dimension and is typical for an abscess. There is significant s urrounding soft tissue edema. Several gas containing tract extend to the dermal surface along the tierney sum of the foot. Imaged portions of the Achilles tendon appear intact. IMPRESSION: Again seen are extensive fractures throughout the tarsal and metatarsal bones as above. T here is increasing bony fragmentation/displacement with erosive change throughout the mid foot as det christopher above, with a large gas and fluid collection containing interdigitating around these bones dane g the plantar aspect of the midfoot. This is highly suspicious for infection, likely representing ext ensive osteomyelitis with a large multiloculated abscess. ACT 112: Negative or not required by law. Electronically signed by: Lebron Beard M.D. 01/23/2023 5:48 PM
[2023-01-23] MEDS ORDERED: BUPIVACAINE 0.5 % 5 MG/1 ML MPF 30ML VIAL ONE (20:08)
[2023-01-23] MEDS ORDERED: HYDROmorphone INJ 0.5 MG/0.5 ML SYR IV PRN (20:20)
[2023-01-23] MEDS ORDERED: GLUCAGON FOR INJ 1 MG VIAL SQ PRN (20:23)
[2023-01-23] MEDS ORDERED: GLUCOSE 40% GEL 15 GM TUBE PO PRN (20:23)
[2023-01-23] MEDS ORDERED: GLUCOSE 10 TAB/TUBE PO PRN (20:23)
[2023-01-23] MEDS ORDERED: DEXTROSE 50% 50 ML SYRINGE IV PRN (20:23)
[2023-01-23] MEDS ORDERED: CARBOHYDRATES FOR HYPOGLYCEMIA PO PRN (20:23)
[2023-01-23] MEDS ORDERED: VANCOMYCIN CONSULT ACTIVE PRN (20:25)
[2023-01-23] MEDS ORDERED: VANCOMYCIN HCL 1,000 MG in SODIUM CHLORIDE 0.9% 250 ML IV SCH (20:30)
[2023-01-23] MEDS ORDERED: PROPOFOL IV EMULSION 10 MG/ML 20 ML VIAL IV ONE (20:31)
[2023-01-23] MEDS ORDERED: SUCCINYLCHOLINE CHLORIDE 20 MG/ML 10 ML VIAL IV ONE (20:31)
[2023-01-23] MEDS ORDERED: ONDANSETRON INJ 2 MG/ML 2 ML VIAL ONE (20:31)
[2023-01-23] MEDS ORDERED: LIDOCAINE 2% MPF LOCAL 5 ML VIAL ONE (20:31)
[2023-01-23] MEDS ORDERED: fentaNYL citrate PF 100 MCG/2 ML VIAL ONE ×2 (20:32→22:32)
[2023-01-23] MEDS ORDERED: ATROPINE SULFATE 0.1 MG/ML 10ML SYR IV PRN (20:34)
[2023-01-23] MEDS ORDERED: ONDANSETRON INJ 2 MG/ML 2 ML VIAL IV PRN (20:34)
[2023-01-23] MEDS ORDERED: ePHEDrine sulfate 50 MG/ML AMP IV PRN (20:34)
[2023-01-23] MEDS ORDERED: LACTATED RINGER'S 1,000 ML IV ONE (20:34)
[2023-01-23] MEDS ORDERED: HYDROmorphone INJ 1 MG/ML SYRINGE IV PRN (20:34)
--- NOTE | 2023-01-23 20:36 | Anesthesiology Consultation ---
Date of Service January 23, 2023 Assessment & Plan (1) Encounter for pre-operative examination: Chart Review Chart Review: Acceptable Risk for Surgery and Patient NOT seen in Pre Admission Testing Consults Requested none History Surgery Operation Date: 01/23/23 21:00 Proposed Procedures p Left Leg Washout(Left) - Baltazar Collier DPM, [place] Of note, this is a RIGHT FOOT WASHOUT. Height/Weight Height: 6 ft Weight: 70 kg Allergies Allergy/AdvReac Type Severity Reaction Status Date / Time pantoprazole [From Protonix] AdvReac Vomiting Verified 01/11/23 16:16 Medications Home Medications Medication Instructions Recorded Confirmed Last Taken Medical Marijuana 1 dose inhalation DIRECTED PRN 02/06/22 01/23/23 08/24/22 NEEDED oxycodone 15 mg tablet 15 mg PO Q6H PRN Breakthrough Pain 02/09/22 01/23/23 Unknown pen needle,diabetic, disp unit 32 #100 ea 02/11/22 01/11/23 Unknown gauge x 1/4", remover and disposal unit aspirin 81 mg tablet,delayed 81 mg PO QPM 02/17/22 01/23/23 01/16/23 release esomeprazole magnesium 40 mg 40 mg PO QAM 02/17/22 01/23/23 01/23/23 capsule,delayed release (Nexium) oxycodone 15 mg tablet,crush 15 mg PO Q12 02/17/22 01/23/23 01/23/23 resistant,extended release 12 hr (OxyContin) sertraline 100 mg tablet 100 mg PO QAM 02/17/22 01/23/23 01/23/23 testosterone cypionate 200 mg/mL 200 mg IM WK 02/17/22 01/23/23 Unknown intramuscular oil Omnipod 5 G6 Intro Kit (Gen 5) #1 ea 12/07/22 01/11/23 Unknown subcutaneous cartridge with controller (insulin pump cart,auto,BT-cntr) Omnipod 5 G6 Pods (Gen 5) (insulin #10 ea 12/07/22 01/11/23 Unknown pump cart,automated,BT) atorvastatin 40 mg tablet 40 mg PO DAILY 12/22/22 01/23/23 Unknown acetaminophen 500 mg tablet 1,000 mg PO TID #90 tabs 01/19/23 01/23/23 Unknown (Tylenol Extra Strength) cefepime 1 gram solution for 1 g IM Q8H #15 ea 01/19/23 01/23/23 Unknown injection gabapentin 300 mg capsule 300 mg PO TID #90 caps 01/19/23 01/23/23 01/23/23 insulin aspart U-100 100 unit/mL 1 unit (0.01 mL) subcut 0730 #15 mL 01/19/23 01/23/23 01/23/23 (3 mL) subcutaneous pen insulin aspart U-100 100 unit/mL 1 unit (0.01 mL) subcut 01/19/23 01/23/23 0511/16 (3 mL) subcutaneous pen 1130,1630,2100 #15 mL insulin glargine 100 unit/mL 20 unit (0.2 mL) subcut DAILY #10 01/19/23 01/23/23 01/23/23 subcutaneous solution (Lantus mL U-100 Insulin) polyethylene glycol 3350 17 gram 17 g PO BID #60 ea 01/19/23 01/23/23 01/23/23 oral powder packet (Miralax) sennosides 8.6 mg-docusate sodium 1 tab PO QAM #30 tabs 01/19/23 01/23/23 Unkno wn 50 mg tablet (Senokot-S) vancomycin 1.25 gram intravenous 1.25 g IV Q12H #10 ea 01/19/23 01/23/23 Unknown solution NPO Date Last Intake of Fluids: 01/23/23 Time Last Intake of Fluids: 12:00 Date Last Intake of Solids: 01/23/23 Time Last Intake of Solids: 12:00 Past Medical History Medical History (Updated 01/23/23 @ 21:17 by Rafael Kurtz MD) Encounter for pre-operative examination GERD (gastroesophageal reflux disease) Glaucoma History of seizure last seizure "couple years ago" -- d/t hypoglycemia Hypertension Infection of right foot Memory deficit Osteoarthritis Poorly controlled type 1 diabetes mellitus Past Family History Family History Other No family history of adverse response to anesthesia Past Surgical History Surgical History History of appendectomy History of knee surgery Rt History of tonsillectomy Social History Smoking Status: Never smoker Do You Dip or Chew Tobacco: No Hx Alcohol Use: Yes Alcohol type: beer alcohol intake frequency: holidays/special occasions only Hx Substance Use: No substance use type: marijuana Substance Use Type Other:: medical Last Used Substance: Days (ago) Last Used Substance Other:: months ago Physical Exam Vital Signs Last Vital Signs Temp 37 C 01/23/23 18:30 Pulse 102 H 01/23/23 19:23 Resp 23 01/23/23 19:23 BP 182/91 H 01/23/23 19:23 Pulse Ox 97 01/23/23 19:23 O2 Del Method Room Air 01/23/23 18:30 Testing Laboratory Results 01/23/23 13:05 01/23/23 13:05 Urine Color Yellow 01/23/23 Unknown Urine Appearance Clear (Clear) 01/23/23 Unknown Urine pH 7.0 (4.5-7.5) 01/23/23 Unknown Ur Specific [place] 1.014 (1.000-1.030) 01/23/23 Unknown Urine Protein 1+ (Negative) H 01/23/23 Unknown Urine Glucose (UA) Negative (Negative) 01/23/23 Unknown Urine Ketones Negative (Negative) 01/23/23 Unknown Urine Nitrite Negative (Negative) 01/23/23 Unknown Ur Leukocyte Esterase Negative (Negative) 01/23/23 Unknown Urine WBC (Auto) 1-5 /hpf (0-5) 01/23/23 Unknown Urine RBC (Auto) 5-10 /hpf (0-4) H 01/23/23 Unknown U Hyaline Cast (Auto) 0 /lpf (0-5) 01/23/23 Unknown U Epithel Cells (Auto) 0-5 /lpf (0-5) 01/23/23 Unknown Urine Bacteria (Auto) Negative (Negative) 01/23/23 Unknown 01/23/23 15:05 Gram Stain - Final Foot 01/23/23 20:41 POC Glucose 89 Electrocardiogram Date: 01/23/23 Findings: + ST @ (100) Normal sinus rhythm 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
--- NOTE | 2023-01-23 20:57 | Electrocardiogram Report ---
Test Reason : Blood Pressure : / mmHG Vent. 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
--- NOTE | 2023-01-23 21:02 | History & Physical Report ---
Date of Service January 23, 2023 Assessment & Plan (1) Abscess of right foot: Plan: -Admit to med/tele -Currently afebrile, hemodynamically stable and stable on RA -Has had significant progression of his known right foot infection at [facility] -CT of the foot today concerning for abscess and OM, being taken urgently to the OR with Dr. Collier now -Was on Cefepime and Ancef at [facility], received one dose fo Zosyn in the ED -Blood cultures and repeat wound culture obtained in the ED -Will continue zosyn and start Vancomycin for now, he was reportedly improving while on Vancomycin -Will give 1L LR STAT -Will start with PO tylenol for mild pain and 0.5 mg IV Dilaudid q3h prn mod- severe pain; may have to escalate as he was on a BOX TENDER last admission -Continue to monitor on tele -Hold chemical DVT PPX for now until, check with orthopedics tomorrow if ok to start -Will consult Vascular Surgery to see tomorrow and follow for decreased distal perfusion -AM CBC, CMP, Mag, PT/INR (2) MSSA bacteremia: Plan: -Was being treated with Cefepime and Ancef at [facility] -Echo during last admission was negative for endocarditis -Continue Vancomycin and Zosyn for now -Follow repeat blood cultures obtained in the ED today (3) Thrombocytosis: Plan: -Has been ongoing since last admission, initial workup had been negative -AST elevated at 62, ALT WNL -Likely reactive due to his acute infection -Continue to monitor daily CMP (4) Poorly controlled type 1 diabetes mellitus: Plan: -Monitor BSG q4h in the perioperative period, goal is 110-140 -BSG currently at 130 prior to OR -Start with 5 units lantus BID, CF of 50 and CR of 15 -Adjust regimen as needed (5) Opioid abuse: Plan: -Tylenol and IV dilaudid for now, may need to escalate as pain control has been difficult in the past (6) Dyslipidemia: Plan: -Continue statin (7) Depression: Plan: -Continue sertraline (8) GERD (gastroesophageal reflux disease): Plan: -40 mg IV Protonix daily for stress ulcer PPX (9) Hypertension: Plan: -Initially hypertensive with systolics in the 180s's, likely due to pain -Is not on antihypertensive therapy outpatient -Monitor for now, will hold antihypertensives for now to avoid hypotension in the perioperative period Plan The patient was discussed with Dr. Juares at the time of the admission History of Present Illness Chief Complaint: Progression of right foot infection Primary Care Provider: Mohit Rodriguez MD Austen is a 62 year old male with a PMH significant for poorly controlled DM I, HTN, hyperlipidemia, memory deficit, chronic pain with opioid abuse, and recent MSSA bacteremia due to post-operative right foot infection with Dr. Collier who presented to the [facility] ED on 01/23/23 for concerns for worsening right foot infection. The patient was admitted to [facility] from 01/11-01/19 for the bacteremia and foot infection. Echo during the admission was negative for endocarditis, cultures from [facility] were MSSA positive but MRSA negative. Dr. Collier took him to the OR on 01/15 and removed the external fixator hardware. He was discharged to [facility] on Vancomycin and C efepime with an end date of 01/24. Today he was noted to be hypertensive at 182/91, tachycardic at 106, otherwise stable. Labs are significant for a leukocytosis at 18, with left shift of 15, platelets of 548, ESR of 74, AST of 62, alk phos of 220. CT of the foot with IV con today shows progression of the right foot infection with concerns for abscess formation and OM. At the time of the exam the patient was lying in bed in no acute distress with his sitting bedside. They state that the patient was initially doing well on discharge. Reportedly this am it was noticed that his infection had significantly progressed and his right foot was cool and discolored in the distal areas. The patient was initially going to be seen in clinic with Dr. Collier today but the decision was made to send him directly to the ED. While at [facility] the patient's Vancomycin had been deescalated to Cefazolin, he was continued on Cefepime. His pain is currently an 8/10 after receiving 0.5 mg IV Dilaudid before my exam. Please refer to Dr. Juares's attestation for any changes to the treatment plan Allergies Allergy/AdvReac Type Severity Reaction Status Date / Time pantoprazole [From Protonix] AdvReac Vomiting Verified 01/11/23 16:16 Home Medications Medication Instructions Recorded Confirmed Type Medical Marijuana 1 dose inhalation DIRECTED PRN 02/06/22 01/23/23 History NEEDED oxycodone 15 mg tablet 15 mg PO Q6H PRN Breakthrough Pain 02/09/22 01/23/23 History pen needle,diabetic, disp unit 32 #100 ea 02/11/22 01/11/23 Rx gauge x 1/4", remover and disposal unit aspirin 81 mg tablet,delayed 81 mg PO QPM 02/17/22 01/23/23 History release esomeprazole magnesium 40 mg 40 mg PO QAM 02/17/22 01/23/23 History capsule,delayed release (Nexium) oxycodone 15 mg tablet,crush 15 mg PO Q12 02/17/22 01/23/23 History resistant,extended release 12 hr (OxyContin) sertraline 100 mg tablet 100 mg PO QAM 02/17/22 01/23/23 History testosterone cypionate 200 mg/mL 200 mg IM WK 02/17/22 01/23/23 History intramuscular oil Omnipod 5 G6 Intro Kit (Gen 5) #1 ea 12/07/22 01/11/23 Rx subcutaneous cartridge with controller (insulin pump cart,auto,BT-cntr) Omnipod 5 G6 Pods (Gen 5) (insulin #10 ea 12/07/22 01/11/23 Rx pump cart,automated,BT) atorvastatin 40 mg tablet 40 mg PO DAILY 12/22/22 01/23/23 History acetaminophen 500 mg tablet 1,000 mg PO TID #90 tabs 01/19/23 01/23/23 Rx (Tylenol Extra Strength) cefepime 1 gram solution for 1 g IM Q8H #15 ea 01/19/23 01/23/23 Rx injection gabapentin 300 mg capsule 300 mg PO TID #90 caps 01/19/23 01/23/23 Rx insulin aspart U-100 100 unit/mL 1 unit (0.01 mL) subcut 0730 #15 mL 01/19/23 01/23/23 Rx (3 mL) subcutaneous pen insulin aspart U-100 100 unit/mL 1 unit (0.01 mL) subcut 01/19/23 01/23/23 Rx (3 mL) subcutaneous pen 1130,1630,2100 #15 mL insulin glargine 100 unit/mL 20 unit (0.2 mL) subcut DAILY #10 01/19/23 01/23/23 Rx subcutaneous solution (Lantus mL U-100 Insulin) polyethylene glycol 3350 17 gram 17 g PO BID #60 ea 01/19/23 01/23/23 Rx oral powder packet (Miralax) sennosides 8.6 mg-docusate sodium 1 tab PO QAM #30 tabs 01/19/23 01/23/23 Rx 50 mg tablet (Senokot-S) vancomycin 1.25 gram intravenous 1.25 g IV Q12H #10 ea 01/19/23 01/23/23 Rx solution Past Med/Surg History Medical History Encounter for pre-operative examination GERD (gastroesophageal reflux disease) Glaucoma History of seizure last seizure "couple years ago" -- d/t hypoglycemia Hypertension Infection of right foot Memory deficit Osteoarthritis Poorly controlled type 1 diabetes mellitus Surgical History History of appendectomy History of knee surgery Rt History of tonsillectomy Family History Other No family history of adverse response to anesthesia Social History Smoking Status: Never smoker Second Hand Exposure: No; Do You Dip or Chew Tobacco: No; Hx Alcohol Use: Yes Alcohol type: beer Hx Substance Use: No Preferred Language: Chinese Communication Ability: Effective Instrumentation Supervisor Required: No Beliefs That Will Affect Care: None Current Living Situation: Spouse Feels Safe at Home: Yes Assistive Devices: Cane and Wheelchair Review of Systems Review of Systems: All systems reviewed & are unremarkable except as noted in HPI & below Physical Exam Physical Exam: Physical Exam: General:In no acu te distress, state d age, non-toxic a ppearing HE ENT:Normocephalic , atraumatic, no s cleral icterus, pu pils around round, symmetrical, and reactive to light, moist mucus membr anes, trachea midl ine, no thyromegal y Chest/Pulm :No respiratory d istress, symmetric al chest expansion , clear breath noemi nds throughout Cardiac:RRR, no m urmurs noted Abdomen:Negative for ascites and br uising, normoactiv e bowel sounds, so ft, non-tender to palpation througho ut Musculosk eletal:RLE signif icantly swollen wi th multiple areas of pustulous drain age on the superio r aspect of the fo ot, patient currhallie tly with minimal R OM of the right fo ot and toes, Extremities:Radia l, dorsalis pedis, and posterior tib ial pulses are int act in the LLE; pa tient with intact PT pulse in the RL E, DP pulse on the right foot is dif ficult to palpate due to significant swelling S kin:Darkened skin on the right grea t toe, distal aspe ct of the right fo ot, erythema noted on the proximal r ight foot running to the right ankle , no other signs o f tracking noted Neuro:Alert and o riented to person, place, month, yea r, and president, no focal defects, CN II-XII tested a nd intact, baselin e left foot drop n oted Psych: No acute distress, calm and cooperat cristino during the exa m Results & Data Results & Data Vital Signs (Past 12 Hours) Vital Signs Temp Pulse Pulse Pulse Resp BP BP 01/23/23 19:23 102 H 23 01/23/23 19:23 182/91 H 01/23/23 19:00 113 H 17 01/23/23 18:30 101 H 9 L 01/23/23 18:30 177/93 H 01/23/23 18:23 104 H 15 01/23/23 18:23 184/95 H 01/23/23 18:00 106 H 18 01/23/23 17:30 103 H 12 01/23/23 17:01 104 H 12 01/23/23 17:01 179/130 H 01/23/23 17:00 101 H 8 L 01/23/23 16:30 97 H 16 01/23/23 16:30 174/87 H 01/23/23 16:30 174/87 H 01/23/23 16:10 187/103 H 01/23/23 16:10 99 H 4 L 01/23/23 16:00 100 H 20 01/23/23 15:30 96 H 15 01/23/23 15:00 95 H 27 H 01/23/23 14:36 96 H 10 L 01/23/23 18:30 37 C 101 H 18 177/93 H 01/23/23 17:01 103 H 18 179/130 H 01/23/23 16:30 99 H 18 174/87 H 01/23/23 15:48 37 C 98 H 19 187/103 H 01/23/23 15:43 98 H 18 01/23/23 14:39 96 H 01/23/23 14:43 37.3 C 96 H 18 167/109 H 01/23/23 14:36 37.3 C 96 H 18 167/109 H Pulse Ox O2 Del Method 01/23/23 19:23 97 01/23/23 19:23 01/23/23 19:00 01/23/23 18:30 96 01/23/23 18:30 01/23/23 18:23 100 01/23/23 18:23 01/23/23 18:00 01/23/23 17:30 100 01/23/23 17:01 100 01/23/23 17:01 01/23/23 17:00 97 01/23/23 16:30 99 01/23/23 16:30 01/23/23 16:30 01/23/23 16:10 01/23/23 16:10 99 01/23/23 16:00 01/23/23 15:30 100 01/23/23 15:00 99 01/23/23 14:36 100 01/23/23 18:30 98 Room Air 01/23/23 17:01 98 Room Air 01/23/23 16:30 99 Room Air 01/23/23 15:48 99 Room Air 01/23/23 15:43 94 Room Air 01/23/23 14:39 01/23/23 14:43 99 Room Air 01/23/23 14:36 99 Room Air Laboratory Results Abnormal lab results 01/23/23 01/23/23 01/23/23 Range/Units 13:05 13:05 13:05 WBC 18.23 H (4.8-10.8) K/ul RBC 3.27 L (4.70-6.10) M/uL Hgb 9.6 L (14.0-18.0) g/dl Hct 29.5 L (42.0-52.0) % Plt Count 584 H (130-400) K/uL MPV 8.8 L (9.4-12.4) fL Neut # (Auto) 15.32 H (1.40-6.50) K/uL Wood # (Auto) 1.32 H (0.11-0.59) K/uL ESR 74 H (0-20) mm/hr Sodium 132 L (136-145) mmol/L BUN/Creatinine Ratio 24.4 H (10-20) Glucose 131 H (70-99(Fasting)) mg/dl AST 62 H (13-39) U/L Alkaline Phosphatase 220 H (34-104) U/L C-Reactive Protein 10.50 H (0-0.5) mg/dl Albumin 2.8 L (3.4-5.0) gm/dl Urine Protein (Negative) Urine Blood (Negative) Urine RBC (Auto) (0-4) /hpf 01/23/23 Range/Units Unknown WBC (4.8-10.8) K/ul RBC (4.70-6.10) M/uL Hgb (14.0-18.0) g/dl Hct (42.0-52.0) % Plt Count (130-400) K/uL MPV (9.4-12.4) fL Neut # (Auto) (1.40-6.50) K/uL Wood # (Auto) (0.11-0.59) K/uL ESR (0-20) mm/hr Sodium (136-145) mmol/L BUN/Creatinine Ratio (10-20) Glucose (70-99(Fasting)) mg/dl AST (13-39) U/L Alkaline Phosphatase (34-104) U/L C-Reactive Protein (0-0.5) mg/dl Albumin (3.4-5.0) gm/dl Urine Protein 1+ H (Negative) Urine Blood 1+ H (Negative) Urine RBC (Auto) 5-10 H (0-4) /hpf Diagnostic Findings Foot CT 01/23/23 15:54 CT SCAN OF THE RIGHT FOOT WITH IV CONTRAST CLINICAL HISTORY: Postoperative foot infection. COMPARISON STUDY: CT scan of the right foot dated 12/21/2022. Radiographs of the right foot dated 01/11/2023. TECHNIQUE: Following the administration of 89 cc of Optiray 350, CT scan of the right foot is performed from the ankle to the base of the foot. Images are reviewed in the axial, sagittal, and coronal planes. IV contrast was administered without complication. A dose lowering technique was utilized adhering to the principles of ALARA. Note that interpretation is suboptimal without current plain film correlate. CT DOSE: 190.38 mGy.cm FINDINGS: The skeletal structures are heterogeneously osteopenic. The ankle mortise is intact. No joint effusion is seen. An Osteochondral defect is suggested in the lateral talar dome. Hardware has been removed from the right midfoot as compared to the 01/11/2023 radiographs. Extensive destructive change/fractures are again seen throughout the mid foot with numerous displaced bony fragments and erosions. There are comminuted fractures involving the middle and lateral cuneiforms, as well as subacute fractures of the second through fifth metatarsals. There are also likely small fractures involving the cuboid and medial cuneiform. There is fragmentation of the navicular. Screw tracks are noted in the calcaneus. There is a large complex gas and fluid-containing fluid collection seen along the plantar aspect of the midfoot interdigitating around the fractured bones. This extends from the distal tarsal row to distal shafts of the metatarsals, centered below the first metatarsal. This measures approximately 2.5 x 6.5 x 3.6 cm in aggregate dimension and is typical for an abscess. There is significant surrounding soft tissue edema. Several gas containing tract extend to the dermal surface along the dorsum of the foot. Imaged portions of the Achilles tendon appear intact. IMPRESSION: Again seen are extensive fractures throughout the tarsal and metatarsal bones as above. There is increasing bony fragmentation/displacement with erosive change throughout the mid foot as detailed above, with a large gas and fluid collection containing interdigitating around these bones along the plantar aspect of the midfoot. This is highly suspicious for infection, likely representing extensive osteomyelitis with a large multiloculated abscess. ACT 112: Negative or not required by law. Electronically signed by: Lebron Beard M.D. 01/23/2023 5:48 PM ECG Additional Comments: Normal sinus rhythm 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 Code Status & VTE Plan Code Status Full code VTE Prophylaxis Plan VTE Prophylaxis will be ordered: Yes Supervising Physician Co-Signing Physician Notes Patient seen and examined, chart reviewed, case discussed with PAYTON Parks and I agree with the assessment and plan as above. In brief, patient is a 62yo male presenting with abscess of left foot. He has been on Cefepime --> Ancef. Worsening swelling, pain. CT as above with large fluid collection, gas present Patient has been taken to the OR with Dr. Collier for washout. He is now back in his room - tolerated procedure well On exam he is afebrile, mildly tachycardic and hypertensive +S1/S2, regular, tachycardic Lungs CTA Abd soft, NT/ND Ext RLE with dusky discoloration of toes, heels, swelling/warmth, open wound on dorsum with purulent drainage Labs and images reviewed Assessment/Plan Follow cultures - intraoperative and blood cultures Continue antibiotics - Vanc and Zosyn Pain control Vascular surgery consultation Remainder as above PG Care Time/CCT Total # of Minutes Spent Total Time Spent with Patient: Total time spent is greater than 50% in coordination of care (as documented) at patient's floor/unit and/or counseling patient: Coding [place] [address] INT INP/OBS CARE 3/75MIN Patient Type Established Medical Decision Making High Complexity Diagnoses Abscess of right foot L02.611 MSSA bacteremia R78.81; B95.61 Thrombocytosis D75.839 Poorly controlled type 1 diabetes mellitus E10.65 Opioid abuse F11.10 Dyslipidemia E78.5 Depression F32.A GERD (gastroesophageal reflux disease) K21.9 Hypertension I10
--- NOTE | 2023-01-23 22:13 | Anesthesiology Progress Note ---
Date of Service January 23, 2023 Anesthesia Post Procedure Vital Signs Vital Signs: Temp Pulse Pulse Pulse Resp BP BP 01/23/23 22:10 104 H 18 179/90 H 01/23/23 22:00 104 H 17 177/90 H 01/23/23 21:51 36.9 C 105 H 16 175/78 H 01/23/23 19:23 102 H 23 01/23/23 19:23 182/91 H 01/23/23 19:00 113 H 17 01/23/23 18:30 101 H 9 L 01/23/23 18:30 177/93 H 01/23/23 18:23 104 H 15 01/23/23 18:23 184/95 H 01/23/23 18:00 106 H 18 01/23/23 17:30 103 H 12 01/23/23 17:01 104 H 12 01/23/23 17:01 179/130 H 01/23/23 17:00 101 H 8 L 01/23/23 16:30 97 H 16 01/23/23 16:30 174/87 H 01/23/23 16:30 174/87 H 01/23/23 16:10 187/103 H 01/23/23 16:10 99 H 4 L 01/23/23 16:00 100 H 20 01/23/23 15:30 96 H 15 01/23/23 15:00 95 H 27 H 01/23/23 14:36 96 H 10 L 01/23/23 18:30 37 C 101 H 18 177/93 H 01/23/23 17:01 103 H 18 179/130 H 01/23/23 16:30 99 H 18 174/87 H 01/23/23 15:48 37 C 98 H 19 187/103 H 01/23/23 15:43 98 H 18 01/23/23 14:39 96 H 01/23/23 14:43 37.3 C 96 H 18 167/109 H 01/23/23 14:36 37.3 C 96 H 18 167/109 H Pulse Ox O2 Del Method O2 Flow Rate 01/23/23 22:10 99 Room Air 01/23/23 22:00 98 Room Air 01/23/23 21:51 100 Oxymask 5 01/23/23 19:23 97 01/23/23 19:23 01/23/23 19:00 01/23/23 18:30 96 01/23/23 18:30 01/23/23 18:23 100 01/23/23 18:23 01/23/23 18:00 01/23/23 17:30 100 01/23/23 17:01 100 01/23/23 17:01 01/23/23 17:00 97 01/23/23 16:30 99 01/23/23 16:30 01/23/23 16:30 01/23/23 16:10 01/23/23 16:10 99 01/23/23 16:00 01/23/23 15:30 100 01/23/23 15:00 99 01/23/23 14:36 100 01/23/23 18:30 98 Room Air 01/23/23 17:01 98 Room Air 01/23/23 16:30 99 Room Air 01/23/23 15:48 99 Room Air 01/23/23 15:43 94 Room Air 01/23/23 14:39 01/23/23 14:43 99 Room Air 01/23/23 14:36 99 Room Air Pain Intensity Right Foot: Pain Intensity: 7 Transfer of Care Handoff Completed per policy Notes Mental Status: alert / awake / arousable and participated in evaluation Patient Amnestic to Procedure: Yes Nausea / Vomiting: adequately controlled Pain: adequately controlled Airway Patency, RR, SpO2: stable & adequate BP & HR: stable & adequate Hydration State: stable & adequate Anesthetic Complications: no major complications apparent and Pt Satisfied with anesthetic care
[2023-01-23] MEDS: fentaNYL citrate PF 100 MCG/2 ML VIAL IV PRN ×2 (22:33→22:38)
[2023-01-23] MEDS ORDERED: ACETAMINOPHEN 325 MG TAB PO PRN (23:16)
[2023-01-23] MEDS ORDERED: VANCOMYCIN HCL 1,750 MG in SODIUM CHLORIDE 0.9% 500 ML IV ONE (23:45)
[2023-01-23] MEDS: LANTUS PER UNIT CHARGE SQ SCH (23:51)
[2023-01-23] MEDS: POLYETHYLENE (MIRALAX) 17 GM PACK PO SCH (23:59)
[2023-01-24] MEDS: FAMOTIDINE 20 MG in SYRINGE 3 ML IV SCH ×3 (00:01→21:24)
[2023-01-24] MEDS: INSULIN ASPART PER UNIT CHARGE SC SCH ×6 (02:10→20:48)
[2023-01-24] MEDS ORDERED: KETOROLAC TROMETHAMINE 15 MG/ML VIAL IV ONE (03:52)
[2023-01-24] MEDS ORDERED: PIPERACILLIN/TAZOBACTAM 4.5 GM in DEXTROSE 5% 100 ML IV SCH (05:00)
[2023-01-24] MEDS ORDERED: HYDROmorphone INJ 0.5 MG/0.5 ML SYR IV PRN (05:55)
[2023-01-24] MEDS: VANCOMYCIN HCL 1,250 MG in SODIUM CHLORIDE 0.9% 250 ML IV SCH ×2 (05:58→18:00)
[2023-01-24 07:09] LABS: Hematocrit (blood only) 26.3 % (42.0-52.0); Hemoglobin 8.7 g/dl (14.0-18.0); Mean Corpuscular Hemoglobin 29.3 pg (25.0-34.0); Mean Corpuscular Hgb Conc 33.1 g/dL (32.0-36.0); Mean Corpuscular Volume 88.6 fL (80.0-100.0); Mean Platelet Volume 8.7 fL (9.4-12.4); Platelet Count 648 K/uL (130-400); RDW Coefficient of Variation 12.7 % (11.5-14.5); RDW Standard Deviation 41.1 fL (36.4-46.3); Red Blood Count 2.97 M/uL (4.70-6.10); White Blood Count 18.62 K/ul (4.8-10.8)
[2023-01-24] MEDS: HYDROmorphone INJ 1 MG/ML SYRINGE IV PRN ×4 (07:31→20:47)
[2023-01-24 07:35] LABS: Albumin Globulin Ratio 0.7 (0.9-2); Albumin Level 2.6 gm/dl (3.4-5.0); BUN Creatinine Ratio 27.7 (10-20); Bilirubin,Total 0.4 mg/dl (0.2-1.0); Calcium 8.4 mg/dl (8.6-10.3); Creatinine Clr Calc Pharmacy 114.9 ml/min; Est GFR (African American) 120.8 ml/min; Est GFR (Non-African American) 104.3 ml/min; Globulin 3.7 gm/dl (2.5-4.0); Magnesium 1.8 mg/dl (1.7-2.4); Potassium 4.2 mmol/L (3.5-5.1); Total Protein 6.3 gm/dl (6.0-8.3)
[2023-01-24 07:36] LABS: Basophils # (auto) 0.06 K/uL (0-0.2); Basophils % (auto) 0.3 %; Hypersegmented Neutrophils 1+; Immature Granulocytes # (auto) 0.11 K/uL (0.01-0.20); Immature Granulocytes % (auto) 0.6 %; Lymphocytes # (auto) 0.64 K/uL (1.2-3.4); Lymphocytes % (auto) 3.4 %; Monocytes # (auto) 0.73 K/uL (0.11-0.59); Monocytes % (auto) 3.9 %; Neutrophils # (auto) 17.08 K/uL (1.40-6.50); Neutrophils % (auto) 91.8 %; Ovalocytes 1+; Polychromasia 1+
[2023-01-24 07:43] LABS: Prothrombin Time 11.4 Seconds (9.0-12.0)
--- NOTE | 2023-01-24 08:29 | Hospitalist Progress Note ---
Date of Service January 24, 2023 Assessment & Plan (1) Abscess of right foot: Plan: Recent admission 01/11 after nausea/vomiting/signs of infection at surgical site after being called w/ positive blood cultures for MSSA outpatient blood cultures Was admitted from 01/11 -- 01/19 and discharged on Ancef, but apparently was switched to Cefepime/Vanco at [facility] at some point and then changed back to Ancef on 01/22 with end date 01/24 ESR 74, CRP 10.5, procal CT imaging concerning for abscess: * Report: Again seen are extensive fractures throughout the tarsal and metatarsal bones as above. There is increasing bony fragmentation/displacement with erosive change throughout the mid foot as detailed above, with a large gas and fluid collection containing interdigitating around these bones along the plantar aspect of the midfoot. This is highly suspicious for infection, likely representing extensive osteomyelitis with a large multiloculated abscess. Dr Collier, podiatry on consult POD# 1 s/p I&D Right foot, debridement of right foot. (Removal of Right Lower Extremity External Fixator(Right) on 01/15)- Baltazar Collier, DPM, MS. Was on Vanco/Zosyn -- will dc the Zosyn and continue on Vancomycin Monitor finalized cultures -- staph species on preliminary Monitor Blood cultures (noting prior on abx [employer]) WBC 18.6, monitor. No further fevers Pain control/antiemetics prn. +BM this morning. Check cdiff if any ongoing diarrhea issues given recent abx use Will check w/ ortho about stating chemo DVT proph Checking Duplex RLE to see about blood flow, vascular consult and to see in AM Monitor labs/culture in AM PT/OT consulted -- NWB RLE per Dr Collier (2) MSSA bacteremia: Plan: Was being treated with Cefepime and Ancef at [facility] , per pharmacy switched to Ancef 01/22 ECHO last admit NEGATIVE for endocarditics Continue Vanco, dc Zosyn as above. 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 (6) Dyslipidemia: Plan: Continue statin (7) Depression: Plan: Continue sertraline (8) GERD (gastroesophageal reflux disease): Plan: -40 mg IV Protonix daily for stress ulcer PPX and can convert to PO tomorrow (9) Hypertension: Plan: -Initially hypertensive with systolics in the 180s's, likely due to pain -Is not on antihypertensive therapy outpatient -Monitor for now, will hold antihypertensives for now to avoid hypotension in the perioperative period Plan continued inpatient stay on IV abx ID consulted for AM PT/OT consulted From [facility], suspect likely where he will need at d/c given recurrent infection/abscess as above Admission and Anticipated Discharge Date Admission Date: January 23, 2023 Supervising Physician Co-Signing Physician Notes The patient was not seen by me. The chart was reviewed. Case discussed with MAC Cerrato. Agree with assessment and plan Subjective eval around 1130, at bedside. she states she needs to be called w/ decisions as he doesn't have great decision making capacity and she wasn't aware they took out the fixator. Discussed possible due to infection but will touch base with Dr Collier. Currently w/ accident needing bedpan in bed. COncerns about weight bearing status and placing weight on in bed. Posterior heel eschar, dressing removed by Dr Collier this morning. Discussed vascular study (patient reports having minimal sensation to his R foot/neuropathy) and consultation w/ surgeon possibly later today vs tomorrow once imaging completed/read. No fever/chills, chest pain, shortness of breath. Pain currently 8/10 reported. Consideration to d/c the Zosyn given staph species on prelimary cx but continue Vanco for now until finalized. Questions/concerns addressed at this time. would like daily updates -- discussed to call into nursing station if she doesn't hear anyone to address needs but will attempt to update daily otherwise and with changes. She is going to call [facility] as he has many things still over there as he will be inpatient for several days. Per pharmacy, was getting Vanco/Cefepime at [facility], but pharmacy confirmed that ID changed regimen back to Ancef on 01/22. Physical Exam Physical Exam: General: WD male laying in bed, moving his bowels, no acute distress but needing some assistance getting on bedpan, at bedside HEENT: head normocephalic, atraumatic, mmm, trachea midline Resp: CTA, no w/c/r, on room air CV: RRR, no significant m/r/g, no pitting edema GI: +BS, soft, actively having BM. nontender : no hammer MSK?Neuro: dressing to R foot c/d/i (changed by ortho this morning), toes with darkened purple appearance, baseline neuropathy L foot drop (baseline) no slurred speech/facial droop Psych: alert to person/place, impulsive Results & Data Results & Data Vital Signs (Past 12 Hours) Vital Signs Temp Pulse Pulse Pulse Resp BP BP 01/24/23 08:21 18 L 01/24/23 08:16 36.7 C 107 H 18 167/79 H 01/24/23 03:39 37.2 C 114 H 20 166/84 H 01/24/23 01:35 106 H 01/24/23 01:35 37.8 C H 107 H 18 197/95 H 01/23/23 22:40 106 H 13 170/80 H 01/23/23 22:30 107 H 12 180/88 H 01/23/23 22:20 37.5 C 105 H 16 170/90 H 01/23/23 22:10 104 H 18 179/90 H 01/23/23 22:00 104 H 17 177/90 H 01/23/23 21:51 36.9 C 105 H 16 175/78 H Pulse Ox O2 Del Method O2 Flow Rate 01/24/23 08:21 01/24/23 08:16 96 Room Air 01/24/23 03:39 96 Room Air 01/24/23 01:35 01/24/23 01:35 96 Room Air 01/23/23 22:40 98 Room Air 01/23/23 22:30 98 Room Air 01/23/23 22:20 99 Room Air 01/23/23 22:10 99 Room Air 01/23/23 22:00 98 Room Air 01/23/23 21:51 100 Oxymask 5 Laboratory Results 01/24/23 01/24/23 01/24/23 Range/Units 07:52 06:34 06:34 WBC (4.8-10.8) K/ul RBC (4.70-6.10) M/uL Hgb (14.0-18.0) g/dl Hct (42.0-52.0) % MCV (80.0-100.0) fL MCH (25.0-34.0) pg MCHC (32.0-36.0) g/dL RDW Std Deviation (36.4-46.3) fL RDW Coeff of Denise (11.5-14.5) % Plt Count (130-400) K/uL MPV (9.4-12.4) fL Immature Gran % (Auto) % Neut % (Auto) % Lymph % (Auto) % Overton % (Auto) % Eos % (Auto) % Baso % (Auto) % Neut # (Auto) (1.40-6.50) K/uL Lymph # (Auto) (1.2-3.4) K/uL Overton # (Auto) (0.11-0.59) K/uL Eos # (Auto) (0-0.50) K/uL Baso # (Auto) (0-0.2) K/uL Immature Gran # (Auto) (0.01-0.20) K/uL Hypersegmented Neuts Polychromasia Ovalocytes ESR (0-20) mm/hr PT 11.4 (9.0-12.0) Seconds INR 1.0 (0.9-1.1) Sodium 134 L (136-145) mmol/L Potassium 4.2 (3.5-5.1) mmol/L Chloride 102 (98-107) mmol/L Carbon Dioxide 26 (21-32) mmol/L Anion Gap 6 (3-11) BUN 18 (6-23) mg/dl Creatinine 0.65 (0.6-1.4) mg/dl Est Cr Clr Drug Dosing 114.9 ml/min Est GFR ( Amer) 120.8 ml/min Est GFR (Non-Af Amer) 104.3 ml/min BUN/Creatinine Ratio 27.7 H (10-20) Glucose 158 H (70-99(Fasting)) mg/dl POC Glucose 202 H (70-99) mg/dl Lactate (0.4-2.0) mmol/L Calcium 8.4 L (8.6-10.3) mg/dl Magnesium 1.8 (1.7-2.4) mg/dl Total Bilirubin 0.4 (0.2-1.0) mg/dl Direct Bilirubin (0-0.2) mg/dl AST 54 H (13-39) U/L ALT 32 (7-52) U/L Alkaline Phosphatase 208 H (34-104) U/L Troponin I High Sens (0-20) pg/ml C-Reactive Protein (0-0.5) mg/dl Total Protein 6.3 (6.0-8.3) gm/dl Albumin 2.6 L (3.4-5.0) gm/dl Globulin 3.7 (2.5-4.0) gm/dl Albumin/Globulin Ratio 0.7 L (0.9-2) Procalcitonin (0-0.5) ng/ml Urine Color Urine Appearance (Clear) Urine pH (4.5-7.5) Ur Specific Grant (1.000-1.030) Urine Protein (Negative) Urine Glucose (UA) (Negative) Urine Ketones (Negative) Urine Blood (Negative) Urine Nitrite (Negative) Urine Bilirubin (Negative) Urine Urobilinogen (Negative) Ur Leukocyte Esterase (Negative) Urine WBC (Auto) (0-5) /hpf Urine RBC (Auto) (0-4) /hpf U Hyaline Cast (Auto) (0-5) /lpf U Epithel Cells (Auto) (0-5) /lpf Urine Bacteria (Auto) (Negative) Nasal Screen MRSA (PCR) (Negative) SARS-CoV-2, RNA, NAAT (NEGATIVE) 01/24/23 01/24/23 01/24/23 Range/Units 06:34 04:04 02:00 WBC 18.62 H (4.8-10.8) K/ul RBC 2.97 L (4.70-6.10) M/uL Hgb 8.7 L (14.0-18.0) g/dl Hct 26.3 L (42.0-52.0) % MCV 88.6 (80.0-100.0) fL MCH 29.3 (25.0-34.0) pg MCHC 33.1 (32.0-36.0) g/dL RDW Std Deviation 41.1 (36.4-46.3) fL RDW Coeff of Denise 12.7 (11.5-14.5) % Plt Count 648 H (130-400) K/uL MPV 8.7 L (9.4-12.4) fL Immature Gran % (Auto) 0.6 % Neut % (Auto) 91.8 % Lymph % (Auto) 3.4 % Overton % (Auto) 3.9 % Eos % (Auto) 0.0 % Baso % (Auto) 0.3 % Neut # (Auto) 17.08 H (1.40-6.50) K/uL Lymph # (Auto) 0.64 L (1.2-3.4) K/uL Overton # (Auto) 0.73 H (0.11-0.59) K/uL Eos # (Auto) 0.00 (0-0.50) K/uL Baso # (Auto) 0.06 (0-0.2) K/uL Immature Gran # (Auto) 0.11 (0.01-0.20) K/uL Hypersegmented Neuts 1+ Polychromasia 1+ Ovalocytes 1+ ESR (0-20) mm/hr PT (9.0-12.0) Seconds INR (0.9-1.1) Sodium (136-145) mmol/L Potassium (3.5-5.1) mmol/L Chloride (98-107) mmol/L Carbon Dioxide (21-32) mmol/L Anion Gap (3-11) BUN (6-23) mg/dl Creatinine (0.6-1.4) mg/dl Est Cr Clr Drug Dosing ml/min Est GFR ( Amer) ml/min Est GFR (Non-Af Amer) ml/min BUN/Creatinine Ratio (10-20) Glucose (70-99(Fasting)) mg/dl POC Glucose 174 H (70-99) mg/dl Lactate (0.4-2.0) mmol/L Calcium (8.6-10.3) mg/dl Magnesium (1.7-2.4) mg/dl Total Bilirubin (0.2-1.0) mg/dl Direct Bilirubin (0-0.2) mg/dl AST (13-39) U/L ALT (7-52) U/L Alkaline Phosphatase (34-104) U/L Troponin I High Sens (0-20) pg/ml C-Reactive Protein (0-0.5) mg/dl Total Protein (6.0-8.3) gm/dl Albumin (3.4-5.0) gm/dl Globulin (2.5-4.0) gm/dl Albumin/Globulin Ratio (0.9-2) Procalcitonin (0-0.5) ng/ml Urine Color Urine Appearance (Clear) Urine pH (4.5-7.5) Ur Specific Grant (1.000-1.030) Urine Protein (Negative) Urine Glucose (UA) (Negative) Urine Ketones (Negative) Urine Blood (Negative) Urine Nitrite (Negative) Urine Bilirubin (Negative) Urine Urobilinogen (Negative) Ur Leukocyte Esterase (Negative) Urine WBC (Auto) (0-5) /hpf Urine RBC (Auto) (0-4) /hpf U Hyaline Cast (Auto) (0-5) /lpf U Epithel Cells (Auto) (0-5) /lpf Urine Bacteria (Auto) (Negative) Nasal Screen MRSA (PCR) Negative (Negative) SARS-CoV-2, RNA, NAAT (NEGATIVE) 01/23/23 01/23/23 01/23/23 Range/Units Unknown 23:26 21:58 WBC (4.8-10.8) K/ul RBC (4.70-6.10) M/uL Hgb (14.0-18.0) g/dl Hct (42.0-52.0) % MCV (80.0-100.0) fL MCH (25.0-34.0) pg MCHC (32.0-36.0) g/dL RDW Std Deviation (36.4-46.3) fL RDW Coeff of Denise (11.5-14.5) % Plt Count (130-400) K/uL MPV (9.4-12.4) fL Immature Gran % (Auto) % Neut % (Auto) % Lymph % (Auto) % Overton % (Auto) % Eos % (Auto) % Baso % (Auto) % Neut # (Auto) (1.40-6.50) K/uL Lymph # (Auto) (1.2-3.4) K/uL Overton # (Auto) (0.11-0.59) K/uL Eos # (Auto) (0-0.50) K/uL Baso # (Auto) (0-0.2) K/uL Immature Gran # (Auto) (0.01-0.20) K/uL Hypersegmented Neuts Polychromasia Ovalocytes ESR (0-20) mm/hr PT (9.0-12.0) Seconds INR (0.9-1.1) Sodium (136-145) mmol/L Potassium (3.5-5.1) mmol/L Chloride (98-107) mmol/L Carbon Dioxide (21-32) mmol/L Anion Gap (3-11) BUN (6-23) mg/dl Creatinine (0.6-1.4) mg/dl Est Cr Clr Drug Dosing ml/min Est GFR ( Amer) ml/min Est GFR (Non-Af Amer) ml/min BUN/Creatinine Ratio (10-20) Glucose (70-99(Fasting)) mg/dl POC Glucose 136 H 105 H (70-99) mg/dl Lactate (0.4-2.0) mmol/L Calcium (8.6-10.3) mg/dl Magnesium (1.7-2.4) mg/dl Total Bilirubin (0.2-1.0) mg/dl Direct Bilirubin (0-0.2) mg/dl AST (13-39) U/L ALT (7-52) U/L Alkaline Phosphatase (34-104) U/L Troponin I High Sens (0-20) pg/ml C-Reactive Protein (0-0.5) mg/dl Total Protein (6.0-8.3) gm/dl Albumin (3.4-5.0) gm/dl Globulin (2.5-4.0) gm/dl Albumin/Globulin Ratio (0.9-2) Procalcitonin (0-0.5) ng/ml Urine Color Yellow Urine Appearance Clear (Clear) Urine pH 7.0 (4.5-7.5) Ur Specific Grant 1.014 (1.000-1.030) Urine Protein 1+ H (Negative) Urine Glucose (UA) Negative (Negative) Urine Ketones Negative (Negative) Urine Blood 1+ H (Negative) Urine Nitrite Negative (Negative) Urine Bilirubin Negative (Negative) Urine Urobilinogen Negative (Negative) Ur Leukocyte Esterase Negative (Negative) Urine WBC (Auto) 1-5 (0-5) /hpf Urine RBC (Auto) 5-10 H (0-4) /hpf U Hyaline Cast (Auto) 0 (0-5) /lpf U Epithel Cells (Auto) 0-5 (0-5) /lpf Urine Bacteria (Auto) Negative (Negative) Nasal Screen MRSA (PCR) (Negative) SARS-CoV-2, RNA, NAAT (NEGATIVE) 01/23/23 01/23/23 01/23/23 Range/Units 20:41 19:32 15:45 WBC (4.8-10.8) K/ul RBC (4.70-6.10) M/uL Hgb (14.0-18.0) g/dl Hct (42.0-52.0) % MCV (80.0-100.0) fL MCH (25.0-34.0) pg MCHC (32.0-36.0) g/dL RDW Std Deviation (36.4-46.3) fL RDW Coeff of Denise (11.5-14.5) % Plt Count (130-400) K/uL MPV (9.4-12.4) fL Immature Gran % (Auto) % Neut % (Auto) % Lymph % (Auto) % Overton % (Auto) % Eos % (Auto) % Baso % (Auto) % Neut # (Auto) (1.40-6.50) K/uL Lymph # (Auto) (1.2-3.4) K/uL Overton # (Auto) (0.11-0.59) K/uL Eos # (Auto) (0-0.50) K/uL Baso # (Auto) (0-0.2) K/uL Immature Gran # (Auto) (0.01-0.20) K/uL Hypersegmented Neuts Polychromasia Ovalocytes ESR (0-20) mm/hr PT (9.0-12.0) Seconds INR (0.9-1.1) Sodium (136-145) mmol/L Potassium (3.5-5.1) mmol/L Chloride (98-107) mmol/L Carbon Dioxide (21-32) mmol/L Anion Gap (3-11) BUN (6-23) mg/dl Creatinine (0.6-1.4) mg/dl Est Cr Clr Drug Dosing ml/min Est GFR ( Amer) ml/min Est GFR (Non-Af Amer) ml/min BUN/Creatinine Ratio (10-20) Glucose (70-99(Fasting)) mg/dl POC Glucose 89 (70-99) mg/dl Lactate 1.5 (0.4-2.0) mmol/L Calcium (8.6-10.3) mg/dl Magnesium (1.7-2.4) mg/dl Total Bilirubin (0.2-1.0) mg/dl Direct Bilirubin (0-0.2) mg/dl AST (13-39) U/L ALT (7-52) U/L Alkaline Phosphatase (34-104) U/L Troponin I High Sens (0-20) pg/ml C-Reactive Protein (0-0.5) mg/dl Total Protein (6.0-8.3) gm/dl Albumin (3.4-5.0) gm/dl Globulin (2.5-4.0) gm/dl Albumin/Globulin Ratio (0.9-2) Procalcitonin (0-0.5) ng/ml Urine Color Urine Appearance (Clear) Urine pH (4.5-7.5) Ur Specific Grant (1.000-1.030) Urine Protein (Negative) Urine Glucose (UA) (Negative) Urine Ketones (Negative) Urine Blood (Negative) Urine Nitrite (Negative) Urine Bilirubin (Negative) Urine Urobilinogen (Negative) Ur Leukocyte Esterase (Negative) Urine WBC (Auto) (0-5) /hpf Urine RBC (Auto) (0-4) /hpf U Hyaline Cast (Auto) (0-5) /lpf U Epithel Cells (Auto) (0-5) /lpf Urine Bacteria (Auto) (Negative) Nasal Screen MRSA (PCR) (Negative) SARS-CoV-2, RNA, NAAT NEGATIVE (NEGATIVE) 01/23/23 01/23/23 01/23/23 Range/Units 13:05 13:05 13:05 WBC (4.8-10.8) K/ul RBC (4.70-6.10) M/uL Hgb (14.0-18.0) g/dl Hct (42.0-52.0) % MCV (80.0-100.0) fL MCH (25.0-34.0) pg MCHC (32.0-36.0) g/dL RDW Std Deviation (36.4-46.3) fL RDW Coeff of Denise (11.5-14.5) % Plt Count (130-400) K/uL MPV (9.4-12.4) fL Immature Gran % (Auto) % Neut % (Auto) % Lymph % (Auto) % Overton % (Auto) % Eos % (Auto) % Baso % (Auto) % Neut # (Auto) (1.40-6.50) K/uL Lymph # (Auto) (1.2-3.4) K/uL Overton # (Auto) (0.11-0.59) K/uL Eos # (Auto) (0-0.50) K/uL Baso # (Auto) (0-0.2) K/uL Immature Gran # (Auto) (0.01-0.20) K/uL Hypersegmented Neuts Polychromasia Ovalocytes ESR 74 H (0-20) mm/hr PT (9.0-12.0) Seconds INR (0.9-1.1) Sodium 132 L (136-145) mmol/L Potassium 4.3 (3.5-5.1) mmol/L Chloride 101 (98-107) mmol/L Carbon Dioxide 24 (21-32) mmol/L Anion Gap 7 (3-11) BUN 19 (6-23) mg/dl Creatinine 0.78 (0.6-1.4) mg/dl Est Cr Clr Drug Dosing 97.2 ml/min Est GFR ( Amer) 112.1 ml/min Est GFR (Non-Af Amer) 96.7 ml/min BUN/Creatinine Ratio 24.4 H (10-20) Glucose 131 H (70-99(Fasting)) mg/dl POC Glucose (70-99) mg/dl Lactate (0.4-2.0) mmol/L Calcium 8.7 (8.6-10.3) mg/dl Magnesium 1.8 (1.7-2.4) mg/dl Total Bilirubin 0.3 (0.2-1.0) mg/dl Direct Bilirubin 0.0 (0-0.2) mg/dl AST 62 H (13-39) U/L ALT 33 (7-52) U/L Alkaline Phosphatase 220 H (34-104) U/L Troponin I High Sens 9.4 (0-20) pg/ml C-Reactive Protein 10.50 H (0-0.5) mg/dl Total Protein 7.0 (6.0-8.3) gm/dl Albumin 2.8 L (3.4-5.0) gm/dl Globulin (2.5-4.0) gm/dl Albumin/Globulin Ratio (0.9-2) Procalcitonin 0.15 (0-0.5) ng/ml Urine Color Urine Appearance (Clear) Urine pH (4.5-7.5) Ur Specific Grant (1.000-1.030) Urine Protein (Negative) Urine Glucose (UA) (Negative) Urine Ketones (Negative) Urine Blood (Negative) Urine Nitrite (Negative) Urine Bilirubin (Negative) Urine Urobilinogen (Negative) Ur Leukocyte Esterase (Negative) Urine WBC (Auto) (0-5) /hpf Urine RBC (Auto) (0-4) /hpf U Hyaline Cast (Auto) (0-5) /lpf U Epithel Cells (Auto) (0-5) /lpf Urine Bacteria (Auto) (Negative) Nasal Screen MRSA (PCR) (Negative) SARS-CoV-2, RNA, NAAT (NEGATIVE) 01/23/23 Range/Units 13:05 WBC 18.23 H (4.8-10.8) K/ul RBC 3.27 L (4.70-6.10) M/uL Hgb 9.6 L (14.0-18.0) g/dl Hct 29.5 L (42.0-52.0) % MCV 90.2 (80.0-100.0) fL MCH 29.4 (25.0-34.0) pg MCHC 32.5 (32.0-36.0) g/dL RDW Std Deviation 42.2 (36.4-46.3) fL RDW Coeff of Denise 12.8 (11.5-14.5) % Plt Count 584 H (130-400) K/uL MPV 8.8 L (9.4-12.4) fL Immature Gran % (Auto) 0.4 % Neut % (Auto) 84.1 % Lymph % (Auto) 6.7 % Overton % (Auto) 7.2 % Eos % (Auto) 1.1 % Baso % (Auto) 0.5 % Neut # (Auto) 15.32 H (1.40-6.50) K/uL Lymph # (Auto) 1.22 (1.2-3.4) K/uL Overton # (Auto) 1.32 H (0.11-0.59) K/uL Eos # (Auto) 0.20 (0-0.50) K/uL Baso # (Auto) 0.09 (0-0.2) K/uL Immature Gran # (Auto) 0.08 (0.01-0.20) K/uL Hypersegmented Neuts Polychromasia Ovalocytes ESR (0-20) mm/hr PT (9.0-12.0) Seconds INR (0.9-1.1) Sodium (136-145) mmol/L Potassium (3.5-5.1) mmol/L Chloride (98-107) mmol/L Carbon Dioxide (21-32) mmol/L Anion Gap (3-11) BUN (6-23) mg/dl Creatinine (0.6-1.4) mg/dl Est Cr Clr Drug Dosing ml/min Est GFR ( Amer) ml/min Est GFR (Non-Af Amer) ml/min BUN/Creatinine Ratio (10-20) Glucose (70-99(Fasting)) mg/dl POC Glucose (70-99) mg/dl Lactate (0.4-2.0) mmol/L Calcium (8.6-10.3) mg/dl Magnesium (1.7-2.4) mg/dl Total Bilirubin (0.2-1.0) mg/dl Direct Bilirubin (0-0.2) mg/dl AST (13-39) U/L ALT (7-52) U/L Alkaline Phosphatase (34-104) U/L Troponin I High Sens (0-20) pg/ml C-Reactive Protein (0-0.5) mg/dl Total Protein (6.0-8.3) gm/dl Albumin (3.4-5.0) gm/dl Globulin (2.5-4.0) gm/dl Albumin/Globulin Ratio (0.9-2) Procalcitonin (0-0.5) ng/ml Urine Color Urine Appearance (Clear) Urine pH (4.5-7.5) Ur Specific Grant (1.000-1.030) Urine Protein (Negative) Urine Glucose (UA) (Negative) Urine Ketones (Negative) Urine Blood (Negative) Urine Nitrite (Negative) Urine Bilirubin (Negative) Urine Urobilinogen (Negative) Ur Leukocyte Esterase (Negative) Urine WBC (Auto) (0-5) /hpf Urine RBC (Auto) (0-4) /hpf U Hyaline Cast (Auto) (0-5) /lpf U Epithel Cells (Auto) (0-5) /lpf Urine Bacteria (Auto) (Negative) Nasal Screen MRSA (PCR) (Negative) SARS-CoV-2, RNA, NAAT (NEGATIVE) Diagnostic Findings Foot CT 01/23/23 15:54 CT SCAN OF THE RIGHT FOOT WITH IV CONTRAST CLINICAL HISTORY: Postoperative foot infection. COMPARISON STUDY: CT scan of the right foot dated 12/21/2022. Radiographs of the right foot dated 01/11/2023. TECHNIQUE: Following the administration of 89 cc of Optiray 350, CT scan of the right foot is performed from the ankle to the base of the foot. Images are reviewed in the axial, sagittal, and coronal planes. IV contrast was administ ered without complication. A dose lowering technique was utilized adhering to the principles of ALARA. Note that interpretation is suboptimal without current plain film correlate. CT DOSE: 190.38 mGy.cm FINDINGS: The skeletal structures are heterogeneously osteopenic. The ankle mortise is intact. No joint effusion is seen. An Osteochondral defect is suggested in the lateral talar dome. Hardware has been removed from the right midfoot as compared to the 01/11/2023 radiographs. Extensive destructive change/fractures are again seen throughout the mid foot with numerous displaced bony fragments and erosions. There are comminuted fractures involving the middle and lateral cuneiforms, as well as subacute fractures of the second through fifth metatarsals. There are also likely small fractures involving the cuboid and medial cuneiform. There is fragmentation of the navicular. Screw tracks are noted in the calcaneus. There is a large complex gas and fluid-containing fluid collection seen along the plantar aspect of the midfoot interdigitating around the fractured bones. This extends from the distal tarsal row to distal shafts of the metatarsals, centered below the first metatarsal. This measures approximately 2.5 x 6.5 x 3.6 cm in aggregate dimension and is typical for an abscess. There is significant surrounding soft tissue edema. Several gas containing tract extend to the dermal surface along the dorsum of the foot. Imaged portions of the Achilles tendon appear intact. IMPRESSION: Again seen are extensive fractures throughout the tarsal and metatarsal bones as above. There is increasing bony fragmentation/displacement with erosive change throughout the mid foot as detailed above, with a large gas and fluid collection containing interdigitating around these bones along the plantar aspect of the midfoot. This is highly suspicious for infection, likely representing extensive osteomyelitis with a large multiloculated abscess. ACT 112: Negative or not required by law. Electronically signed by: Lebron Beard M.D. 01/23/2023 5:48 PM PG Care Time/CCT Total # of Minutes Spent Total Time Spent with Patient: Total time spent is greater than 50% in coordination of care (as documented) at patient's floor/unit and/or counseling patient: Coding Level of Care Code 02938 SUB INP/OBS CARE 3/50MIN Diagnoses Abscess of right foot L02.611 MSSA bacteremia R78.81; B95.61 Thrombocytosis D75.839 Poorly controlled type 1 diabetes mellitus E10.65 Opioid abuse F11.10 Dyslipidemia E78.5 Depression F32.A GERD (gastroesophageal reflux disease) K21.9 Hypertension I10
--- NOTE | 2023-01-24 08:41 | Pharmacy Report ---
Pharmacy PK ABX Note - Date of Service January 24, 2023 - Assessment and Plan Assessment 62 year old M receiving vancomycin and Zosyn for treatment of right foot infection concerning for abscess and osteomyelitis. Patient was recently discharged from [facility] to [facility] on 01/19. During this past admission, he was found to have MSSA bacteremia and treated with cefazolin per ID. This was ultimately broadened to vancomycin and cefepime due to persistent leukocytosis, slow improvement, and high risk of osteomyelitis to nearby bone. Patient was discharged to rehab on this regimen. Confirmed this morning with [facility] that patient received vancomycin and cefepime until 01/22 when it was changed to cefazolin monotherapy again per ID. Patient readmitted last evening due to worsening of infection and underwent right foot I&D w/ wound debridement. Cultures obtained. Broad spectrum antibiotics appropriate at this time. Plan Vancomycin * Loading dose: 1750 mg IV x 1 * Maintenance dose: 1250 mg IV every 12 hours * Regimen is predicted to achieve target AUC/RAJESH of 400-600 mg/L.hr * Will obtain random vanco level on 01/26 prior to 5th maintenance dose Zosyn * 4.5 g IV q8h - appropriate, no change Pharmacy will continue to follow and will adjust dose/frequency as necessary. Thank you. Pharmacy has transitioned to AUC monitoring for vancomycin. AUC/RAJESH is the preferred PK/PD target and is associated with decreased risk of nephrotoxicity compared to traditional trough targets.
[2023-01-24] MEDS: GABAPENTIN 300 MG CAP PO SCH ×4 (09:58→20:45)
[2023-01-24] MEDS: SERTRALINE HCL 100 MG TABLET PO SCH (09:58)
[2023-01-24] MEDS: ATORVASTATIN 40 MG TAB PO SCH (09:58)
[2023-01-24] MEDS: POLYETHYLENE (MIRALAX) 17 GM PACK PO SCH ×2 (09:59→20:45)
[2023-01-24] MEDS: DOCUSATE SODIUM/SENNA 50/8.6MG TAB PO SCH (10:00)
[2023-01-24] MEDS: LANTUS PER UNIT CHARGE SQ SCH (10:07)
[2023-01-24] MEDS ORDERED: Nursing to Pharmacy Communication SCH (10:45)
[2023-01-24] MEDS ORDERED: PANTOprazole 40 MG in SYRINGE 0 ML IV SCH (11:00)
[2023-01-24] MEDS ORDERED: PHARMACY GLYCEMIC MGMT CONSULT PRN (13:13)
[2023-01-24] MEDS ORDERED: LANTUS PER UNIT CHARGE SQ STA ×2 (13:16→13:42)
--- NOTE | 2023-01-24 14:11 | Ultrasound Report ---
ULTRASOUND BILATERAL LOWER EXTREMITY ARTERIAL CLINICAL HISTORY: Peripheral arterial disease. COMPARISON STUDY: No priors. TECHNIQUE: Real-time grayscale and color Doppler sonography of the right and left lower extremity is performed from the inguinal crease to the foot. Ankle-brachial indices were not assessed due to recen t foot surgery. FINDINGS: Right lower extremity: Atherosclerotic plaque and irregularity seen throughout the areas of the right lower extremity. There are triphasic arterial waveforms in the common femoral artery with velocities measuring up to 100 cm/s. The profunda femoris artery is patent with velocities measuring up to 79 c m/s. There are triphasic to biphasic waveforms throughout the superficial femoral and popliteal arter ies. Velocities in the superficial femoral artery measure up to 123 cm/s, and velocities in the popli teal artery measuring up to 153 cm/s. There is three-vessel runoff to the foot. The calf arteries are suboptimally assessed due to heavy calcification. There are biphasic arterial waveforms in the calf arteries. The calf arteries show slightly blunted arterial upstroke. Velocities in the calf arteries measure up to 139 cm/s. The dorsalis pedis artery is patent with velocities measuring up to 63 cm/s. Left lower extremity: Atherosclerotic plaque and irregularity seen throughout the arteries of the lef t lower extremity. There are triphasic waveforms in the common femoral artery with velocities measuri ng up to 124 cm/s. The profunda femoris artery is patent with velocities measuring up to 81 cm/s. There are triphasic to biphasic waveforms throughout the superficial femoral artery and popliteal art josey. Velocities in the superficial femoral artery measure up to 147 cm/s, and velocities in the popli teal artery measure up to 108 cm/s. There is three-vessel runoff to the foot. The calf arteries are s uboptimally assessed due to dense calcification. There is mildly blunted arterial upstroke in the heather f vessels. Velocities in the calf arteries measure up to 149 cm/s. The dorsalis pedis artery is paten t with velocities measuring up to 61 cm/s. IMPRESSION: Atherosclerotic plaque with evidence of peripheral vascular disease as above. There is no sonographic evidence of high-grade stenosis or focal vessel cutoff throughout the arteries of the ri ght or left lower extremity. Dictated: 01/24/2023 11:55 AM Transcribed: 01/24/2023 1:55 PM Amelia [id number] [id number] [id number] Electronically signed by: Lebron Baerd M.D. 01/24/2023 2:10 PM
--- NOTE | 2023-01-24 14:19 | Pharmacy Report ---
Pharmacy Glycemic Short Note 2 - Date of Service January 24, 2023 - Glycemic Short BSG Results (Last 24 hours): 01/23/23 01/23/23 01/23/23 13:05 20:41 21:58 Glucose 131 H POC Glucose 89 105 H 01/23/23 01/24/23 01/24/23 23:26 04:04 06:34 Glucose 158 H POC Glucose 136 H 174 H 01/24/23 01/24/23 01/24/23 07:52 12:02 12:03 Glucose POC Glucose 202 H 436 H* 442 H* OUTPATIENT ANTIDIABETIC REGIMEN: * Per most recent endocrinology note/cosmetology educator note from past admission in December 2022 * Lantus 25 units SC qAM * Novolog 5-6 units SC TID w/ meals (patient reports missing these doses often) * Plan appears to be for patient to transition to insulin pump * HbA1c: 9.4% (12/22/22) ASSESSMENT: * is a 62 year old male known to pharmacy glycemic consult from recent prior admission last week * Readmitted for worsening right foot infection w/ abscess/osteomyelitis * BSGs extremely labile last admission w/ frequent episodes of hyper/hypoglycemia * Pharmacy consulted at lunchtime for BSG > 400 mg/dL * Prior to consult, patient received 5 units of Lantus. Will give additional 15 units to equal 20 units for the day, which was reasonable last admission. * Will utilize parameters similar to last admission to start PLAN FOR INPATIENT GLYCEMIC CONTROL: * Hold outpatient oral diabetes medications * Basal insulin * Anticipating Lantus 20 units SC daily * Bolus insulin * NovoLog per scale ACHS or Q6hrs while NPO * Goal Range: Low 120 mg/dL - High 160 mg/dL * Correction Factor: 45 mg/dL/unit * Nutritional / Prandial insulin per carb ratio of 1 unit per 15 grams CHO consumed
[2023-01-24] MEDS: oxyCODONE HCL IR 5 MG TAB (IMMEDIATE RELEASE) PO PRN (19:12)
[2023-01-24] MEDS: MELATONIN 3 MG TAB PO PRN (21:24)
--- NOTE | 2023-01-24 21:49 | Orthopedic Progress Note ---
Date of Service January 24, 2023 Assessment & Plan (1) Diabetic infection of right foot: Plan: Patient seen, evaluated, and treated. Status post day #1 Incision and drainage right foot. Dressing change at bedside. Patient is non weight bearing to right foot. I spoke with Austen about the extent of infection and damage to right foot. He is aware of the possible need for partial amputation. This was also discussed with Gisele over phone. Will continue to follow while in house. (2) Abscess of right foot: Admission and Anticipated Discharge Date Admission Date: January 23, 2023 Subjective Patient seen at bedside status post incision and drainage. Patient resting comfortable and relates no complaints. Review of Systems Review of Systems: All systems reviewed & are unremarkable except as noted in Subjective Physical Exam Constitutional: cooperative and comfortable Eyes: normal visual ortega by confrontation Respiratory: normal respiratory effort Cardiovascular: Rate/Rhythm: regular rate and regular rhythm Musculoskeletal: Extremities: + abnormal strength ((+) Right drop foot) Skin: Right foot first and second toes are dark and dusky, appear cyanotic. BLACK LEATHER BUFFER absent to right first and second digits. Medial and dorsal midfoot fasciotomies show active serosanguineous active drainage. Neurologic: moves all extremities Psychiatric: Orientation: alert and oriented x 3 Results & Data Vital Signs (Past 12 Hours) Vital Signs Temp Pulse Pulse Pulse Resp BP Pulse Ox 01/24/23 19:36 37.8 C H 108 H 16 164/67 H 95 01/24/23 15:55 103 H 01/24/23 15:54 37.4 C 100 H 16 170/77 H 96 01/24/23 11:45 36.4 C L 105 H 20 158/78 H 97 O2 Del Method 01/24/23 19:36 Room Air 01/24/23 15:55 01/24/23 15:54 Room Air 01/24/23 11:45 Room Air Diagnostic Findings ULTRASOUND BILATERAL LOWER EXTREMITY ARTERIAL CLINICAL HISTORY: Peripheral arterial disease. COMPARISON STUDY: No priors. TECHNIQUE: Real-time grayscale and color Doppler sonography of the right and left lower extremity is performed from the inguinal crease to the foot. Ankle- brachial indices were not assessed due to recent foot surgery. FINDINGS: Right lower extremity: Atherosclerotic plaque and irregularity seen throughout the areas of the right lower extremity. There are triphasic arterial waveforms in the common femoral artery with velocities measuring up to 100 cm/s. The profunda femoris artery is patent with velocities measuring up to 79 cm/s. There are triphasic to biphasic waveforms throughout the superficial femoral and popliteal arteries. Velocities in the superficial femoral artery measure up to 123 cm/s, and velocities in the popliteal artery measuring up to 153 cm/s. There is three-vessel runoff to the foot. The calf arteries are suboptimally assessed due to heavy calcification. There are biphasic arterial waveforms in the calf arteries. The calf arteries show slightly blunted arterial upstroke. Velocities in the calf arteries measure up to 139 cm/s. The dorsalis pedis artery is patent with velocities measuring up to 63 cm/s. Left lower extremity: Atherosclerotic plaque and irregularity seen throughout the arteries of the left lower extremity. There are triphasic waveforms in the common femoral artery with velocities measuring up to 124 cm/s. The profunda femoris artery is patent with velocities measuring up to 81 cm/s. There are triphasic to biphasic waveforms throughout the superficial femoral artery and popliteal artery. Velocities in the superficial femoral artery measure up to 147 cm/s, and velocities in the popliteal artery measure up to 108 cm/s. There is three-vessel runoff to the foot. The calf arteries are suboptimally assessed due to dense calcification. There is mildly blunted arterial upstroke in the calf vessels. Velocities in the calf arteries measure up to 149 cm/s. The dorsalis pedis artery is patent with velocities measuring up to 61 cm/s. IMPRESSION: Atherosclerotic plaque with evidence of peripheral vascular disease as above. There is no sonographic evidence of high-grade stenosis or focal vessel cutoff throughout the arteries of the right or left lower extremity. Dictated: 01/24/2023 11:55 AM Transcribed: 01/24/2023 1:55 PM Amelia [id number] Denisse [id number]
[2023-01-25] MEDS: VANCOMYCIN HCL 1,250 MG in SODIUM CHLORIDE 0.9% 250 ML IV SCH ×2 (05:20→17:22)
[2023-01-25] MEDS: GABAPENTIN 300 MG CAP PO SCH ×3 (07:57→20:11)
[2023-01-25] MEDS: FAMOTIDINE 20 MG in SYRINGE 3 ML IV SCH ×2 (07:57→20:11)
[2023-01-25] MEDS: ATORVASTATIN 40 MG TAB PO SCH (07:58)
[2023-01-25] MEDS: PANTOprazole 40 MG TAB PO SCH (07:58)
[2023-01-25] MEDS: SERTRALINE HCL 100 MG TABLET PO SCH (07:58)
[2023-01-25] MEDS: HYDROmorphone INJ 1 MG/ML SYRINGE IV PRN ×3 (07:58→17:20)
[2023-01-25] MEDS: INSULIN ASPART PER UNIT CHARGE SC SCH ×4 (08:12→22:24)
--- NOTE | 2023-01-25 08:30 | Hospitalist Progress Note ---
Date of Service January 25, 2023 Assessment & Plan (1) Abscess of right foot: Plan: Recent admission 01/11 after nausea/vomiting/signs of infection at surgical site after being called w/ positive blood cultures for MSSA outpatient blood cultures Was admitted from 01/11 -- 01/19 and discharged on Ancef, but apparently was switched to Cefepime/Vanco at [facility] at some point and then changed back to Ancef on 01/22 with end date 01/24 ESR 74, CRP 10.5, procal CT imaging concerning for abscess: * Report: Again seen are extensive fractures throughout the tarsal and metatarsal bones as above. There is increasing bony fragmentation/displacement with erosive change throughout the mid foot as detailed above, with a large gas and fluid collection containing interdigitating around these bones along the plantar aspect of the midfoot. This is highly suspicious for infection, likely representing extensive osteomyelitis with a large multiloculated abscess. Dr Collier, podiatry on consult POD# 2 s/p I&D Right foot, debridement of right foot. (Removal of Right Lower Extremity External Fixator(Right) on 01/15)- Baltazar Collier, DPM, MS. Was on Vanco/Zosyn -- > continues on Vanco (Zosyn dc 01/24) Cx from foot on admission now growing MRSA. OR cx MRSA as well WBC trending down, no further fevers. Blood cultures remain NGTD ID consulted for continuity/continued recs -- appreciate assistance Pain control/bowel regimen -- added oral oxycodone as needed, increased to 10mg prn, increased IV diluadid to 1-1.5mg IV as needed based on pain scale. Continue usual gabapentin 300mg TID, consider increasing dose. Also B12 low normal in December, will place on IM replacement while inpatient as well Duplex RLE obtained, vascular to see today. Possible need for amputation per discussion w/ Dr Collier and Dr Collier would like to hold off DVT chemoproph for now NWB RLE --> PT/OT consulted Also given 20mg IV lasix for slight volume overload/JVD on exam -- monitor response (2) MSSA bacteremia: Plan: Was being treated with Cefepime and Ancef at [facility] , per pharmacy switched to Ancef 01/22 ECHO last admit NEGATIVE for endocarditics Continue Vanco, dc Zosyn as above. ID consulted (3) Thrombocytosis: Plan: Has been ongoing since last admission, initial workup had been negative -Likely reactive due to his acute infection B12 low last month, will place on IM injections while inpatient consider reaching out to Dr Beavers if needed Monitor CBC (4) Poorly controlled type 1 diabetes mellitus: Plan: A1c 8.6 Placed on Lantus 5u BID, SSI while inpatient but BSG elevation to 400s afternoon 01/24, likely from infection as above Given 10 lantus x 1, pharmacy consulted BSGs improved but still in 200s --> given lantus 20u SC this morning Monitor -- would want better blood sugar control w/ ongoing infection (5) Opioid abuse: Plan: Tylenol and IV dilaudid for now, may need to escalate as pain control has been difficult in the past and 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 --> increased PO oxycodone and IV dilaudid (6) Dyslipidemia: Plan: Continue statin (7) Depression: Plan: Continue sertraline (8) GERD (gastroesophageal reflux disease): Plan: IV protonix on admission --> converted to PO daily for today (9) Hypertension: Plan: Initially hypertensive with systolics in the 180s's, likely due to pain Is not on antihypertensive therapy outpatient Monitor for now, will hold antihypertensives for now to avoid hypotension in the perioperative period and suspect elevations 2nd to pain Plan continued inpatient stay on IV abx ID consult, vascular consult pending PT/OT consulted From [facility], suspect likely where he will need at d/c given recurrent infection/abscess as above Admission and Anticipated Discharge Date Admission Date: January 23, 2023 Supervising Physician Co-Signing Physician Notes The patient was not seen by me. The chart was reviewed. Case discussed with MAC Cerrato. Agree with assessment and plan Subjective Eval this morning, doing alright with exception of pain control. +BM yesterday, passing gas today. Will increase PO oxycodone to 10mg as needed. Consideration for addition of something like gabapentin. Has not yet seen vascular surgery but is aware of concern for possible amputation of his great toe for source control. No fever/chills, chest pain, shortness of breath. Questions/concerns addressed at this time. Updated by phone. Physical Exam Physical Exam: General: WD male laying in bed, NAD, reporting need for pain medicatoin HEENT: head normocephalic, atraumatic, mmm, trachea midline, +JVD Resp: CTA, no w/c/r, on room air CV: RRR, slightly tachy to low 100s, no significant m/r/g, no pitting edema GI: +BS, soft, nontender : no hammer MSK?Neuro: dressing to R foot c/d/i (changed by ortho this morning) 1st/2nd toe darkened/dusky appearance with coolness, poor cap refill (reports neuropathy at baseline), some blister to anterior surface 2nd toe L foot drop (baseline) no slurred speech/facial droop Psych: alert to person/place, impulsive Results & Data Results & Data Vital Signs (Past 12 Hours) Vital Signs Temp Pulse Pulse Pulse Resp BP Pulse Ox 01/25/23 08:12 36.8 C 100 H 18 178/76 H 96 01/25/23 07:38 96 H 01/25/23 03:53 37.1 C 90 18 176/71 H 96 01/25/23 00:46 96 H 01/24/23 23:33 36.8 C 99 H 18 162/76 H 95 O2 Del Method 01/25/23 08:12 Room Air 01/25/23 07:38 01/25/23 03:53 Room Air 01/25/23 00:46 01/24/23 23:33 Room Air Laboratory Results 01/25/23 01/24/23 01/24/23 Range/Units 07:52 20:32 16:48 POC Glucose 299 H 220 H 246 H (70-99) mg/dl 01/24/23 01/24/23 Range/Units 12:03 12:02 POC Glucose 442 H* 436 H* (70-99) mg/dl Diagnostic Findings Duplex Scan Lower Extremity Artery 01/24/23 08:52 ULTRASOUND BILATERAL LOWER EXTREMITY ARTERIAL CLINICAL HISTORY: Peripheral arterial disease. COMPARISON STUDY: No priors. TECHNIQUE: Real-time grayscale and color Doppler sonography of the right and left lower extremity is performed from the inguinal crease to the foot. Ankle- brachial indices were not assessed due to recent foot surgery. FINDINGS: Right lower extremity: Atherosclerotic plaque and irregularity seen throughout the areas of the right lower extremity. There are triphasic arterial waveforms in the common femoral artery with velocities measuring up to 100 cm/s. The profunda femoris artery is patent with velocities measuring up to 79 cm/s. There are triphasic to biphasic waveforms throughout the superficial femoral and popliteal arteries. Velocities in the superficial femoral artery measure up to 123 cm/s, and velocities in the popliteal artery measuring up to 153 cm/s. There is three-vessel runoff to the foot. The calf arteries are suboptimally assessed due to heavy calcification. There are biphasic arterial waveforms in the calf arteries. The calf arteries show slightly blunted arterial upstroke. Velocities in the calf arteries measure up to 139 cm/s. The dorsalis pedis artery is patent with velocities measuring up to 63 cm/s. Left lower extremity: Atherosclerotic plaque and irregularity seen throughout the arteries of the left lower extremity. There are triphasic waveforms in the common femoral artery with velocities measuring up to 124 cm/s. The profunda femoris artery is patent with velocities measuring up to 81 cm/s. There are triphasic to biphasic waveforms throughout the superficial femoral artery and popliteal artery. Velocities in the superficial femoral artery measure up to 147 cm/s, and velocities in the popliteal artery measure up to 108 cm/s. There is three-vessel runoff to the foot. The calf arteries are suboptimally assessed due to dense calcification. There is mildly blunted arterial upstroke in the calf vessels. Velocities in the calf arteries measure up to 149 cm/s. The dorsalis pedis artery is patent with velocities measuring up to 61 cm/s. IMPRESSION: Atherosclerotic plaque with evidence of peripheral vascular disease as above. There is no sonographic evidence of high-grade stenosis or focal vessel cutoff throughout the arteries of the right or left lower extremity. Dictated: 01/24/2023 11:55 AM Transcribed: 01/24/2023 1:55 PM Amelia [id number] [id number] [id number] Electronically signed by: Lebron Beard M.D. 01/24/2023 2:10 PM PG Care Time/CCT Total # of Minutes Spent Total Time Spent with Patient: Total time spent is greater than 50% in coordination of care (as documented) at patient's floor/unit and/or counseling patient: Coding Level of Care Code 02870 SUB INP/OBS CARE 3/50MIN Diagnoses Abscess of right foot L02.611 MSSA bacteremia R78.81; B95.61 Thrombocytosis D75.839 Poorly controlled type 1 diabetes mellitus E10.65 Opioid abuse F11.10 Dyslipidemia E78.5 Depression F32.A GERD (gastroesophageal reflux disease) K21.9 Hypertension I10
[2023-01-25] MEDS ORDERED: LANTUS PER UNIT CHARGE SQ SCH (09:00)
[2023-01-25 09:04] LABS: Basophils # (auto) 0.09 K/uL (0-0.2); Basophils % (auto) 0.7 %; Eosinophils # (auto) 0.12 K/uL (0-0.50); Eosinophils % (auto) 0.9 %; Hematocrit (blood only) 25.9 % (42.0-52.0); Hemoglobin 8.7 g/dl (14.0-18.0); Immature Granulocytes # (auto) 0.07 K/uL (0.01-0.20); Immature Granulocytes % (auto) 0.6 %; Lymphocytes # (auto) 0.97 K/uL (1.2-3.4); Lymphocytes % (auto) 7.7 %; Mean Corpuscular Hemoglobin 29.8 pg (25.0-34.0); Mean Corpuscular Hgb Conc 33.6 g/dL (32.0-36.0); Mean Corpuscular Volume 88.7 fL (80.0-100.0); Mean Platelet Volume 8.9 fL (9.4-12.4); Monocytes # (auto) 0.94 K/uL (0.11-0.59); Monocytes % (auto) 7.4 %; Neutrophils # (auto) 10.46 K/uL (1.40-6.50); Neutrophils % (auto) 82.7 %; Platelet Count 627 K/uL (130-400); Prothrombin Time 11.4 Seconds (9.0-12.0); RDW Coefficient of Variation 12.5 % (11.5-14.5); RDW Standard Deviation 40.6 fL (36.4-46.3); Red Blood Count 2.92 M/uL (4.70-6.10); White Blood Count 12.65 K/ul (4.8-10.8)
[2023-01-25 09:40] LABS: Albumin Globulin Ratio 0.7 (0.9-2); Albumin Level 2.7 gm/dl (3.4-5.0); BUN Creatinine Ratio 32.1 (10-20); Bilirubin,Total 0.4 mg/dl (0.2-1.0); Calcium 8.3 mg/dl (8.6-10.3); Creatinine Clr Calc Pharmacy 127.9 ml/min; Est GFR (African American) 128.5 ml/min; Est GFR (Non-African American) 110.9 ml/min; Globulin 3.8 gm/dl (2.5-4.0); Magnesium 1.8 mg/dl (1.7-2.4); Potassium 4.2 mmol/L (3.5-5.1); Total Protein 6.5 gm/dl (6.0-8.3)
[2023-01-25] MEDS: DOCUSATE SODIUM/SENNA 50/8.6MG TAB PO SCH (10:17)
[2023-01-25] MEDS: POLYETHYLENE (MIRALAX) 17 GM PACK PO SCH ×2 (10:17→20:10)
[2023-01-25] MEDS: oxyCODONE HCL IR 5 MG TAB (IMMEDIATE RELEASE) PO PRN ×2 (11:06→20:12)
[2023-01-25] MEDS ORDERED: FUROSEMIDE INJ 20 MG/2 ML VIAL IV ONE ×2 (13:07→17:17)
[2023-01-25] MEDS: CYANOCOBALAMIN 1000 MCG/ML VIAL IM SCH (14:21)
--- NOTE | 2023-01-25 21:16 | Orthopedic Progress Note ---
Date of Service January 25, 2023 Assessment & Plan (1) Diabetic infection of right foot: Plan: Patient seen, evaluated, and treated. Status post day #1 Incision and drainage right foot. Dressing change at bedside. Patient is non weight bearing to right foot. I spoke with Austen about the extent of infection and damage to right foot. He is aware of the possible need for partial amputation. This was also discussed with Gisele over phone. Will continue to follow while in house. (2) Abscess of right foot: Admission and Anticipated Discharge Date Admission Date: January 23, 2023 Subjective Patient seen at bedside resting comfortably.. He relates no discomfort. Updated by phone. Review of Systems Review of Systems: All systems reviewed & are unremarkable except as noted in HPI & below Physical Exam Constitutional: cooperative and comfortable Eyes: normal visual ortega by confrontation Respiratory: normal respiratory effort Cardiovascular: Rate/Rhythm: regular rate and regular rhythm Musculoskeletal: Extremities: + abnormal strength ((+) Right drop foot) Skin: + wound (Right foot first and second toes are dark and dusky, appear cyanotic. 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
[2023-01-25] MEDS: HYDROmorphone INJ 2 MG/ML SYR/VIAL IV PRN (22:23)
[2023-01-26] MEDS: HYDROmorphone INJ 2 MG/ML SYR/VIAL IV PRN ×3 (02:19→18:36)
[2023-01-26] MEDS: oxyCODONE HCL IR 5 MG TAB (IMMEDIATE RELEASE) PO PRN ×4 (03:30→21:04)
[2023-01-26] MEDS ORDERED: VANCOMYCIN LEVEL ONE (05:30)
[2023-01-26 05:48] LABS: Basophils # (auto) 0.08 K/uL (0-0.2); Basophils % (auto) 0.7 %; Eosinophils # (auto) 0.18 K/uL (0-0.50); Eosinophils % (auto) 1.5 %; Hematocrit (blood only) 25.5 % (42.0-52.0); Hemoglobin 8.4 g/dl (14.0-18.0); Immature Granulocytes # (auto) 0.05 K/uL (0.01-0.20); Immature Granulocytes % (auto) 0.4 %; Lymphocytes # (auto) 1.49 K/uL (1.2-3.4); Lymphocytes % (auto) 12.8 %; Mean Corpuscular Hemoglobin 29.1 pg (25.0-34.0); Mean Corpuscular Hgb Conc 32.9 g/dL (32.0-36.0); Mean Corpuscular Volume 88.2 fL (80.0-100.0); Mean Platelet Volume 8.8 fL (9.4-12.4); Monocytes # (auto) 1.11 K/uL (0.11-0.59); Monocytes % (auto) 9.5 %; Neutrophils # (auto) 8.74 K/uL (1.40-6.50); Neutrophils % (auto) 75.1 %; Platelet Count 553 K/uL (130-400); RDW Coefficient of Variation 12.6 % (11.5-14.5); RDW Standard Deviation 40.1 fL (36.4-46.3); Red Blood Count 2.89 M/uL (4.70-6.10); White Blood Count 11.65 K/ul (4.8-10.8)
[2023-01-26 06:12] LABS: Albumin Globulin Ratio 0.7 (0.9-2); Albumin Level 2.6 gm/dl (3.4-5.0); BUN Creatinine Ratio 41.4 (10-20); Bilirubin,Total 0.3 mg/dl (0.2-1.0); Calcium 8.5 mg/dl (8.6-10.3); Creatinine Clr Calc Pharmacy 102.3 ml/min; Est GFR (African American) 117.2 ml/min; Est GFR (Non-African American) 101.1 ml/min; Globulin 3.8 gm/dl (2.5-4.0); Potassium 4.1 mmol/L (3.5-5.1); Total Protein 6.4 gm/dl (6.0-8.3)
[2023-01-26] MEDS: VANCOMYCIN HCL 1,250 MG in SODIUM CHLORIDE 0.9% 250 ML IV SCH (06:43)
[2023-01-26] MEDS: INSULIN ASPART PER UNIT CHARGE SC SCH ×5 (06:54→21:43)
[2023-01-26] MEDS: HYDROmorphone INJ 1 MG/ML SYRINGE IV PRN ×3 (06:55→22:41)
[2023-01-26] MEDS: POLYETHYLENE (MIRALAX) 17 GM PACK PO SCH ×2 (08:12→21:05)
[2023-01-26] MEDS: PANTOprazole 40 MG TAB PO SCH (08:12)
[2023-01-26] MEDS: GABAPENTIN 300 MG CAP PO SCH ×3 (08:13→21:03)
[2023-01-26] MEDS: DOCUSATE SODIUM/SENNA 50/8.6MG TAB PO SCH (08:13)
[2023-01-26] MEDS: CYANOCOBALAMIN 1000 MCG/ML VIAL IM SCH (08:13)
[2023-01-26] MEDS: ATORVASTATIN 40 MG TAB PO SCH (08:14)
[2023-01-26] MEDS: SERTRALINE HCL 100 MG TABLET PO SCH (08:14)
[2023-01-26] MEDS: LANTUS PER UNIT CHARGE SQ SCH (08:24)
[2023-01-26] MEDS: FAMOTIDINE 20 MG in SYRINGE 3 ML IV SCH (08:26)
[2023-01-26] MEDS ORDERED: DAKIN'S SOLN 0.125% QUARTER STRENGTH 473 ML BTL EXT SCH (08:30)
--- NOTE | 2023-01-26 08:34 | Hospitalist Progress Note ---
Date of Service January 26, 2023 Assessment & Plan (1) Abscess of right foot: Plan: Recent admission 01/11 after nausea/vomiting/signs of infection at surgical site after being called w/ positive blood cultures for MSSA outpatient blood cultures Was admitted from 01/11 -- 01/19 and discharged on Ancef, but apparently was switched to Cefepime/Vanco at [facility] at some point and then changed back to Ancef on 01/22 with end date 01/24 ESR 74, CRP 10.5, procal CT imaging concerning for abscess: * Report: Again seen are extensive fractures throughout the tarsal and metatarsal bones as above. There is increasing bony fragmentation/displacement with erosive change throughout the mid foot as detailed above, with a large gas and fluid collection containing interdigitating around these bones along the plantar aspect of the midfoot. This is highly suspicious for infection, likely representing extensive osteomyelitis with a large multiloculated abscess. Dr Collier, podiatry on consult POD#3 s/p I&D Right foot, debridement of right foot. with Dr Collier on 01/23 (Removal of Right Lower Extremity External Fixator(Right) on 01/15)- Discussed w/ ID this morning -- continue Vancomycin for now. ID consult pending Cx w/ MRSA Blood cultures remaining NGTD WBC trending down, remains afebrile Vascular study obtained w/ minimal PAD, no intervention Seen by Podiatry this morning and Dakin solution applied, but suspect patient will likely require amputation Pain control/bowel regimen (last BM 01/25) -- reported pain better w/ adjustment in regimen Message podiatry about adding chemoproph for patient - would rec we start this if no immediate plans for surgical intervention NWB RLE, PT/OT consulted Monitor labs in AM (2) MSSA bacteremia: Plan: Was being treated with Cefepime and Ancef at [facility] , per pharmacy switched to Ancef 01/22 ECHO last admit NEGATIVE for endocarditics Continue carlita Flores Zosyn as above. 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 --> increased PO oxycodone and IV dilaudid and reports improvement in pain control (6) Dyslipidemia: Plan: Continue statin (7) Depression: Plan: Continue sertraline (8) GERD (gastroesophageal reflux disease): Plan: IV protonix on admission --> converted to PO daily no increased symptoms reported (9) Hypertension: Plan: Initially hypertensive with systolics in the 180s's, likely due to pain Is not on antihypertensive therapy outpatient Monitor for now, will hold antihypertensives for now to avoid hypotension in the perioperative period and suspect elevations 2nd to pain --> improvement in BP w/ increased pain control Plan continued inpatient stay on IV abx, may eventually need amputation ID consulted, consult pending messaged podiatry about starting chemoproph for DVT prevention -- defer to them for safety to order Admission and Anticipated Discharge Date Admission Date: January 23, 2023 Supervising Physician Co-Signing Physician Notes The patient was not seen by me. The chart was reviewed. Case discussed with MAC Cerrato. Agree with assessment and plan Subjective eval this morning, seen by vascular/orthopedics. using Dakin solution at present did discuss concerns for need for amputation but will continue IV abx at this time. Discussed duration TBD based on surgical intervention/removal of infected tissue/bone if need. Awaiting wound demarcation at present. Pain still present but better controlled with ordered medications. Moving his bowels, appetite fair. Denies any chest pain or shortness of breath at present. Results & Data Results & Data Vital Signs (Past 12 Hours) Vital Signs Temp Pulse Pulse Resp BP Pulse Ox O2 Del Method 01/26/23 06:01 107 H 01/25/23 22:00 104 H 01/26/23 02:44 37.1 C 95 H 18 167/82 H 94 Room Air 01/25/23 22:32 37.2 C 105 H 18 164/80 H 96 Room Air Laboratory Results 01/26/23 01/26/23 01/26/23 Range/Units 11:33 07:44 07:43 WBC (4.8-10.8) K/ul RBC (4.70-6.10) M/uL Hgb (14.0-18.0) g/dl Hct (42.0-52.0) % MCV (80.0-100.0) fL MCH (25.0-34.0) pg MCHC (32.0-36.0) g/dL RDW Std Deviation (36.4-46.3) fL RDW Coeff of Denise (11.5-14.5) % Plt Count (130-400) K/uL MPV (9.4-12.4) fL Immature Gran % (Auto) % Neut % (Auto) % Lymph % (Auto) % Hill % (Auto) % Eos % (Auto) % Baso % (Auto) % Neut # (Auto) (1.40-6.50) K/uL Lymph # (Auto) (1.2-3.4) K/uL Hill # (Auto) (0.11-0.59) K/uL Eos # (Auto) (0-0.50) K/uL Baso # (Auto) (0-0.2) K/uL Immature Gran # (Auto) (0.01-0.20) K/uL PT (9.0-12.0) Seconds INR (0.9-1.1) Sodium (136-145) mmol/L Potassium (3.5-5.1) mmol/L Chloride (98-107) mmol/L Carbon Dioxide (21-32) mmol/L Anion Gap (3-11) BUN (6-23) mg/dl Creatinine (0.6-1.4) mg/dl Est Cr Clr Drug Dosing ml/min Est GFR ( Amer) ml/min Est GFR (Non-Af Amer) ml/min BUN/Creatinine Ratio (10-20) Glucose (70-99(Fasting)) mg/dl POC Glucose 205 H 399 H* 404 H* (70-99) mg/dl Calcium (8.6-10.3) mg/dl Magnesium (1.7-2.4) mg/dl Total Bilirubin (0.2-1.0) mg/dl AST (13-39) U/L ALT (7-52) U/L Alkaline Phosphatase (34-104) U/L Total Protein (6.0-8.3) gm/dl Albumin (3.4-5.0) gm/dl Globulin (2.5-4.0) gm/dl Albumin/Globulin Ratio (0.9-2) Random Vancomycin (10-20) mcg/ml 01/26/23 01/26/23 01/26/23 Range/Units 05:25 05:25 05:25 WBC (4.8-10.8) K/ul RBC (4.70-6.10) M/uL Hgb (14.0-18.0) g/dl Hct (42.0-52.0) % MCV (80.0-100.0) fL MCH (25.0-34.0) pg MCHC (32.0-36.0) g/dL RDW Std Deviation (36.4-46.3) fL RDW Coeff of Denise (11.5-14.5) % Plt Count (130-400) K/uL MPV (9.4-12.4) fL Immature Gran % (Auto) % Neut % (Auto) % Lymph % (Auto) % Hill % (Auto) % Eos % (Auto) % Baso % (Auto) % Neut # (Auto) (1.40-6.50) K/uL Lymph # (Auto) (1.2-3.4) K/uL Hill # (Auto) (0.11-0.59) K/uL Eos # (Auto) (0-0.50) K/uL Baso # (Auto) (0-0.2) K/uL Immature Gran # (Auto) (0.01-0.20) K/uL PT 11.0 (9.0-12.0) Seconds INR 1.0 (0.9-1.1) Sodium 130 L (136-145) mmol/L Potassium 4.1 (3.5-5.1) mmol/L Chloride 97 L (98-107) mmol/L Carbon Dioxide 27 (21-32) mmol/L Anion Gap 6 (3-11) BUN 29 H (6-23) mg/dl Creatinine 0.70 (0.6-1.4) mg/dl Est Cr Clr Drug Dosing 102.3 ml/min Est GFR ( Amer) 117.2 ml/min Est GFR (Non-Af Amer) 101.1 ml/min BUN/Creatinine Ratio 41.4 H (10-20) Glucose 368 H* (70-99(Fasting)) mg/dl POC Glucose (70-99) mg/dl Calcium 8.5 L (8.6-10.3) mg/dl Magnesium 1.7 (1.7-2.4) mg/dl Total Bilirubin 0.3 (0.2-1.0) mg/dl AST 30 (13-39) U/L ALT 36 (7-52) U/L Alkaline Phosphatase 226 H (34-104) U/L Total Protein 6.4 (6.0-8.3) gm/dl Albumin 2.6 L (3.4-5.0) gm/dl Globulin 3.8 (2.5-4.0) gm/dl Albumin/Globulin Ratio 0.7 L (0.9-2) Random Vancomycin 16.5 (10-20) mcg/ml 01/26/23 01/25/23 01/25/23 Range/Units 05:25 20:08 16:38 WBC 11.65 H (4.8-10.8) K/ul RBC 2.89 L (4.70-6.10) M/uL Hgb 8.4 L (14.0-18.0) g/dl Hct 25.5 L (42.0-52.0) % MCV 88.2 (80.0-100.0) fL MCH 29.1 (25.0-34.0) pg MCHC 32.9 (32.0-36.0) g/dL RDW Std Deviation 40.1 (36.4-46.3) fL RDW Coeff of Denise 12.6 (11.5-14.5) % Plt Count 553 H (130-400) K/uL MPV 8.8 L (9.4-12.4) fL Immature Gran % (Auto) 0.4 % Neut % (Auto) 75.1 % Lymph % (Auto) 12.8 % Hill % (Auto) 9.5 % Eos % (Auto) 1.5 % Baso % (Auto) 0.7 % Neut # (Auto) 8.74 H (1.40-6.50) K/uL Lymph # (Auto) 1.49 (1.2-3.4) K/uL Hill # (Auto) 1.11 H (0.11-0.59) K/uL Eos # (Auto) 0.18 (0-0.50) K/uL Baso # (Auto) 0.08 (0-0.2) K/uL Immature Gran # (Auto) 0.05 (0.01-0.20) K/uL PT (9.0-12.0) Seconds INR (0.9-1.1) Sodium (136-145) mmol/L Potassium (3.5-5.1) mmol/L Chloride (98-107) mmol/L Carbon Dioxide (21-32) mmol/L Anion Gap (3-11) BUN (6-23) mg/dl Creatinine (0.6-1.4) mg/dl Est Cr Clr Drug Dosing ml/min Est GFR ( Amer) ml/min Est GFR (Non-Af Amer) ml/min BUN/Creatinine Ratio (10-20) Glucose (70-99(Fasting)) mg/dl POC Glucose 223 H 189 H (70-99) mg/dl Calcium (8.6-10.3) mg/dl Magnesium (1.7-2.4) mg/dl Total Bilirubin (0.2-1.0) mg/dl AST (13-39) U/L ALT (7-52) U/L Alkaline Phosphatase (34-104) U/L Total Protein (6.0-8.3) gm/dl Albumin (3.4-5.0) gm/dl Globulin (2.5-4.0) gm/dl Albumin/Globulin Ratio (0.9-2) Random Vancomycin (10-20) mcg/ml PG Care Time/CCT Total # of Minutes Spent Total Time Spent with Patient: Total time spent is greater than 50% in coordination of care (as documented) at patient's floor/unit and/or counseling patient: Coding Level of Care Code 80135 SUB INP/OBS CARE 3/50MIN Diagnoses Abscess of right foot L02.611 MSSA bacteremia R78.81; B95.61 Thrombocytosis D75.839 Poorly controlled type 1 diabetes mellitus E10.65 Opioid abuse F11.10 Dyslipidemia E78.5 Depression F32.A GERD (gastroesophageal reflux disease) K21.9 Hypertension I10
--- NOTE | 2023-01-26 09:05 | Orthopedic Progress Note ---
Date of Service January 26, 2023 Assessment & Plan (1) Diabetic infection of right foot: Plan: Patient seen, evaluated, and treated. Status post day #3 Incision and drainage right foot. Dressing change at bedside. Dakin solution ordered. Minimal Dakin solution lightly applied to 4x4 gauze prior to application over wounds. Nursing to continue dressing changes BID. Patient is non weight bearing to right foot. I spoke with Austen about the extent of infection and damage to right foot. He is aware of likely need for some sort of partial amputation. Awaiting wound demarcation. Will continue to follow while in house. (2) Abscess of right foot: Admission and Anticipated Discharge Date Admission Date: January 23, 2023 Subjective Patient seen at bedside resting comfortably. Nursing is present at time of evaluation. Patient relates no discomfort. Review of Systems Review of Systems: All systems reviewed & are unremarkable except as noted in Subjective Physical Exam Constitutional: cooperative and comfortable Eyes: normal visual ortega by confrontation Respiratory: normal respiratory effort Cardiovascular: Rate/Rhythm: regular rate and regular rhythm Extremities: + pedal edema (Right foot first and second toes are dark and dusky, appear cyanotic.) Musculoskeletal: Extremities: + abnormal strength ((+) Right drop foot) Skin: + wound (Dorsal and medial right foot wounds with necrotic base connecting to Eschar) Neurologic: moves all extremities Psychiatric: Orientation: alert and oriented x 3 Results & Data Vital Signs (Past 12 Hours) Vital Signs Temp Pulse Pulse Resp BP Pulse Ox O2 Del Method 01/26/23 06:01 107 H 01/25/23 22:00 104 H 01/26/23 02:44 37.1 C 95 H 18 167/82 H 94 Room Air 01/25/23 22:32 37.2 C 105 H 18 164/80 H 96 Room Air
[2023-01-26 09:45] LABS: Magnesium 1.7 mg/dl (1.7-2.4)
--- NOTE | 2023-01-26 09:48 | Pharmacy Report ---
Pharmacy PK ABX Note - Date of Service January 26, 2023 - Assessment and Plan Assessment 01/26/23: * Right foot culture now growing MRSA. Improved leukocytosis (18 K -> 11 K). Blood cultures show no growth at 48 hours. Renal function stable. * Per ortho, patient likely to require partial amputation of right foot. 01/24/23: * 62 year old M receiving vancomycin and Zosyn for treatment of right foot infection concerning for abscess and osteomyelitis. Patient was recently discharged from [facility] to [facility] on 01/19. During this past admission, he was found to have MSSA bacteremia and treated with cefazolin per ID. This was ultimately broadened to vancomycin and cefepime due to persistent leukocytosis, slow improvement, and high risk of osteomyelitis to nearby bone. Patient was discharged to rehab on this regimen. Confirmed this morning with [facility] that patient received vancomycin and cefepime until 01/22 when it was changed to cefazolin monotherapy again per ID. Patient readmitted last evening due to worsening of infection and underwent right foot I&D w/ wound debridement. Cultures obtained. Broad spectrum antibiotics appropriate at this time. Plan Vancomycin * Current regimen: 1250 mg IV every 12 hours * Random level obtained 01/26/23 resulted as 16.5 mcg/mL. This is predicted to achieve target AUC/RAJESH of 400-600 mg/L.hr * Predicted AUC at steady state: 643 mg/L.hr * Change to 1000 mg IV every 12 hours to still achieve high probability of A UC/RAJESH attainment with lower risk of nephrotoxicity * Will repeat level in the next 48-72 hours if therapy is continued and/or change in patient clinical status Pharmacy will continue to follow and will adjust dose/frequency as necessary. Thank you. Pharmacy has transitioned to AUC monitoring for vancomycin. AUC/RAJESH is the preferred PK/PD target and is associated with decreased risk of nephrotoxicity compared to traditional trough targets.
--- NOTE | 2023-01-26 11:08 | Consultation ---
Date of Consultation January 26, 2023 Assessment & Plan (1) Peripheral arterial disease: Pt with minimal PAD, does not require vascular surigcal intervention at this time. Foot infection is likely cause of his toe/foot gangrene. Discussed with pt. Please call if needed. History of Present Illness Reason for Consultation: PAD Attending Physician: Maxim Hein MD History of Present Illness 62 yo m with hx of DMII, HTN, GERD, dyslipidemia, chronic pain on opioids, noncompliance, admitted for worsening R foot infection and bacteremia, seen in consultation today for PAD. Pt is a very poor historian and falls asleep in the middle of a sentence. Most of the hx obtained from chart. Pt initially had a fall which resulted in fx of multiple bones in his R foot, requiring surgical external fixation. This unfortunately developed an infection and he underwent removal of the fixator hardware. His infection continued to worsen after leaving the rehab center [facility]. Upon admission here, he was noted to have gas gangrene of the foot and underwent emergent I&D by Dr Collier. Pt does not know when his toes turned black. No hx of PAD or vascular surgical intervention in past. Denies claudication prior to his injury, rest pain, or nonhealing ulcers in past. Denies PEREZ, fever, chest pain, SOB, abd pain, N/V, other complaints. Arterial US demonstrates mild diffuse PAD, no focal stenoses. Allergies Allergy/AdvReac Type Severity Reaction Status Date / Time pantoprazole [From Protonix] AdvReac Vomiting Verified 01/11/23 16:16 Home Medications Medication Instructions Recorded Confirmed Type Medical Marijuana 1 dose inhalation DIRECTED PRN 02/06/22 01/23/23 History NEEDED oxycodone 15 mg tablet 15 mg PO Q6H PRN Breakthrough Pain 02/09/22 01/23/23 History pen needle,diabetic, disp unit 32 #100 ea 02/11/22 01/11/23 Rx gauge x 1/4", remover and disposal unit aspirin 81 mg tablet,delayed 81 mg PO QPM 02/17/22 01/23/23 History release esomeprazole magnesium 40 mg 40 mg PO QAM 02/17/22 01/23/23 History capsule,delayed release (Nexium) oxycodone 15 mg tablet,crush 15 mg PO Q12 02/17/22 01/23/23 History resistant,extended release 12 hr (OxyContin) sertraline 100 mg tablet 100 mg PO QAM 02/17/22 01/23/23 History testosterone cypionate 200 mg/mL 200 mg IM WK 02/17/22 01/23/23 History intramuscular oil Omnipod 5 G6 Intro Kit (Gen 5) #1 ea 12/07/22 01/11/23 Rx subcutaneous cartridge with controller (insulin pump cart,auto,BT-cntr) Omnipod 5 G6 Pods (Gen 5) (insulin #10 ea 12/07/22 01/11/23 Rx pump cart,automated,BT) atorvastatin 40 mg tablet 40 mg PO DAILY 12/22/22 01/23/23 History acetaminophen 500 mg tablet 1,000 mg PO TID #90 tabs 01/19/23 01/23/23 Rx (Tylenol Extra Strength) cefepime 1 gram solution for 1 g IM Q8H #15 ea 01/19/23 01/23/23 Rx injection gabapentin 300 mg capsule 300 mg PO TID #90 caps 01/19/23 01/23/23 Rx insulin aspart U-100 100 unit/mL 1 unit (0.01 mL) subcut 0730 #15 mL 01/19/23 01/23/23 Rx (3 mL) subcutaneous pen insulin aspart U-100 100 unit/mL 1 unit (0.01 mL) subcut 01/19/23 01/23/23 Rx (3 mL) subcutaneous pen 1130,1630,2100 #15 mL insulin glargine 100 unit/mL 20 unit (0.2 mL) subcut DAILY #10 01/19/23 01/23/23 Rx subcutaneous solution (Lantus mL U-100 Insulin) polyethylene glycol 3350 17 gram 17 g PO BID #60 ea 01/19/23 01/23/23 Rx oral powder packet (Miralax) sennosides 8.6 mg-docusate sodium 1 tab PO QAM #30 tabs 01/19/23 01/23/23 Rx 50 mg tablet (Senokot-S) vancomycin 1.25 gram intravenous 1.25 g IV Q12H #10 ea 01/19/23 01/23/23 Rx solution Patient History Medical History (Updated 01/29/23 @ 08:01 by Tera Krishnan MD) GERD (gastroesophageal reflux disease) Glaucoma History of seizure last seizure "couple years ago" -- d/t hypoglycemia Hypertension Infection of right foot Memory deficit Osteoarthritis Poorly controlled type 1 diabetes mellitus Surgical History History of appendectomy History of knee surgery Rt History of tonsillectomy Family History Other No family history of adverse response to anesthesia Social History Smoking Status: Never smoker Second Hand Exposure: No; Do You Dip or Chew Tobacco: No; Hx Alcohol Use: Yes Alcohol type: beer Hx Substance Use: Yes Last Used Substance: Unknown Last Used Substance Other:: months ago Substance Use Type Other:: medical Preferred Language: Macedonian Communication Ability: Effective Centrifugal Machine Tender Required: No Beliefs That Will Affect Care: None Current Living Situation: Spouse Feels Safe at Home: Yes Assistive Devices: Wheelchair Review of Systems Review of Systems: All systems reviewed & are unremarkable except as noted in HPI & below Physical Exam Constitutional: WD/WN, vitals as above healthy appearing and + lethargic (falls asleep while talking, wakes to voice, falls asleep during exam); not in distress ENMT: Ears: no hearing impairment Neck: trachea midline Respiratory: normal respiratory effort, lungs clear to auscultation Auscultation: + diminished lung sounds Cardiovascular: Rate/Rhythm: regular rate and regular rhythm Vessels: femoral pulses present, posterior tibial pulses present, dorsalis pedis pulses present and radial pulses present; + abnormal peripheral pulses Extremities: normal capillary refill (R toes 1,2 black/necrotic, no refill. Other toes + cap refill) Gastrointestinal (Abdomen): Inspection/Auscultation: abdomen normal to inspection and normal bowel sounds Percussion/Palpation: abdomen soft; abdomen nontender Musculoskeletal: Extremities: strength 5/5 throughout Skin: no rashes, warm and dry (other than R foot) R foot with large dressing, not removed. Neurologic: moves all extremities and + obtunded; no focal motor deficits and not confused Psychiatric: Orientation: oriented x 3 Results & Data Vital Signs (Past 12 Hours) Vital Signs Temp Pulse Pulse Resp BP Pulse Ox O2 Del Method 01/26/23 07:05 Room Air 01/26/23 06:01 107 H 01/26/23 02:44 37.1 C 95 H 18 167/82 H 94 Room Air
--- NOTE | 2023-01-26 13:19 | Pharmacy Report ---
Pharmacy Glycemic Short Note 2 - Date of Service January 26, 2023 - Glycemic Short BSG Results (Last 24 hours): 01/25/23 01/25/23 01/26/23 16:38 20:08 05:25 Glucose 368 H* POC Glucose 189 H 223 H 01/26/23 01/26/23 01/26/23 07:43 07:44 11:33 Glucose POC Glucose 404 H* 399 H* 205 H OUTPATIENT ANTIDIABETIC REGIMEN: * Per most recent endocrinology note/elementary educator note from past admission in December 2022 * Lantus 25 units SC qAM * Novolog 5-6 units SC TID w/ meals (patient reports missing these doses often) * Plan appears to be for patient to transition to insulin pump * HbA1c: 9.4% (12/22/22) ASSESSMENT: 01/26/23: * BSGs elevated yesterday, ranging 189-299 mg/dL * Received 20 units of basal and 30 units of Novolog * Will increase Lantus to 22 units today and tighten breakfast Novolog further * May require tightening of Novolog at lunch, dinner, HS, but will hold off one more day as prior lows were observed last admission w/ tighter coverage * Tighten goal range to 110-140 mg/dL today 01/24/23: * is a 62 year old male known to pharmacy glycemic consult from recent prior admission last week * Readmitted for worsening right foot infection w/ abscess/osteomyelitis * BSGs extremely labile last admission w/ frequent episodes of hyper/hypoglycemia * Pharmacy consulted at lunchtime for BSG > 400 mg/dL * Prior to consult, patient received 5 units of Lantus. Will give additional 15 units to equal 20 units for the day, which was reasonable last admission. * Will utilize parameters similar to last admission to start PLAN FOR INPATIENT GLYCEMIC CONTROL: * Basal insulin * Lantus 22 units SC daily * Bolus insulin * NovoLog per scale ACHS or Q6hrs while NPO * Goal Range: Low 110 mg/dL - High 140 mg/dL * Correction Factor: 25 mg/dL/unit at breakfast and 45 mg/dL/unit at lunch, dinner, and HS * Nutritional / Prandial insulin per carb ratio of 1 unit per 7 grams CHO consumed at breakfast and 15 grams CHO consumed at lunch, dinner, HS
--- NOTE | 2023-01-26 15:21 | Infectious Disease Consult ---
Date of Consultation January 26, 2023 Assessment & Plan (1) Peripheral arterial disease: Plan #R foot infection s/p exfix removal, prior abscess #History of MSSA bacteremia #PVD #poorly controlled DM 61 yo M poorly controlled DM I, HTN, hyperlipidemia, memory deficit, chronic pain with opioid abuse, R Charcot arthropathy and R foot lisfranc deformity s/p repair, closed reduction, application of external fixation, and tendon Achilles lengthening (12/25/22) who presents with MSSA foot infection c/b MSSA bacteremia. He had been discharged to SNF on 12/27 and was noncompliant with NWB on R foot,and signed himself out AMA on 01/05. While at home, he has had multiple falls due to ambulatory dysfunction with his ex fix. Admitted with MSSA bacteremia from R foot. TTE negative for vegetation. 01/09 Bcx x 2 MSSA 10/28 bottles, cleared 01/11 and 01/12. 01/09 Wound culture: MSSA (S clinda, TMP/SMX, tetra), 01/17 R foot wound culture: MSSA, He was treated with Cefazolin with plans to extend beyond 2 weeks. However represented on 01/23 with worsening foot infection. He went to OR on 01/23 for Removal of Right Lower Extremity External Fixator. Patient currently on IV vancomycin and zosyn with current plans for likely partial amputation and evaluation by vascular team DM1, HTN, HLD, memory deficit, chronic pain on opioids, R Charcot arthropathy and R foot lisfranc deformity s/p repair, closed reduction, application of external fixation, and tendon Achilles lengthening (12/25/22) who presents with MSSA foot infection c/b MSSA bacteremia. He had been discharged to SNF on 12/27 and was noncompliant with NWB on R foot,and signed himself out AMA on 01/05. While at home, he has had multiple falls due to ambulatory dysfunction with his ex fix. Discussion: Patient with ongoing infection leading to prior bacteremia, now culture is growing MRSA (superificial), Prior growth of MSSA Recommend C/W vancomycin, pharmacy to follow levels Once source control achieved will be able to outline duration ID Will follow I spoke with Dr. Davenport this morning Please page OTW with questions. Will RT service on Sunday Stefanie Doe MD Consultation Information This patient recommendation is based on a telemedicine consult request which was completed asynchronously through chart review and information provided by the primary physician. The patient was not seen or examined today. The evaluation is consultative in nature and all patient care and treatment decisions can either be accepted or rejected by the patient's primary hospital-based treating physician using their own independent medical judgment for their patient. [employer] contact information: Please call [facility] . (Phone Number For Physician Use Only) Time Spent Reviewing Chart: 31+ minutes History of Present Illness Reason for Consultation: R foot infection Requesting Physician: Dr. Davenport Attending Physician: Maxim Hein MD History of Present Illness 62 yo M poorly controlled DM I, HTN, hyperlipidemia, memory deficit, chronic pain with opioid abuse, R Charcot arthropathy and R foot lisfranc deformity s/p repair, closed reduction, application of external fixation, and tendon Achilles lengthening (12/25/22) who presents with MSSA foot infection c/b MSSA bacteremia. He had been discharged to SNF on 12/27 and was noncompliant with NWB on R foot,and signed himself out AMA on 01/05. While at home, he has had multiple falls due to ambulatory dysfunction with his ex fix. Admitted with MSSA bacteremia from R foot. TTE negative for vegetation. 01/09 Bcx x 2 MSSA 10/28 bottles, cleared 01/11 and 01/12. 01/09 Wound culture: MSSA (S clinda, TMP/SMX, tetra), 01/17 R foot wound culture: MSSA, He was treated with Cefazolin with plans to extend beyond 2 weeks. However represented on 01/23 with worsening foot infection. He went to OR on 01/23 for Removal of Right Lower Extremity External Fixator. Patient currently on IV vancomycin and zosyn with current plans for likely partial amputation and evaluation by vascular team Allergies Allergy/AdvReac Type Severity Reaction Status Date / Time pantoprazole [From Protonix] AdvReac Vomiting Verified 01/11/23 16:16 Home Medications Medication Instructions Recorded Confirmed Type Medical Marijuana 1 dose inhalation DIRECTED PRN 02/06/22 01/23/23 History NEEDED oxycodone 15 mg tablet 15 mg PO Q6H PRN Breakthrough Pain 02/09/22 01/23/23 History pen needle,diabetic, disp unit 32 #100 ea 02/11/22 01/11/23 Rx gauge x 1/4", remover and disposal unit aspirin 81 mg tablet,delayed 81 mg PO QPM 02/17/22 01/23/23 History release esomeprazole magnesium 40 mg 40 mg PO QAM 02/17/22 01/23/23 History capsule,delayed release (Nexium) oxycodone 15 mg tablet,crush 15 mg PO Q12 02/17/22 01/23/23 History resistant,extended release 12 hr (OxyContin) sertraline 100 mg tablet 100 mg PO QAM 02/17/22 01/23/23 History testosterone cypionate 200 mg/mL 200 mg IM WK 02/17/22 01/23/23 History intramuscular oil Omnipod 5 G6 Intro Kit (Gen 5) #1 ea 12/07/22 01/11/23 Rx subcutaneous cartridge with controller (insulin pump cart,auto,BT-cntr) Omnipod 5 G6 Pods (Gen 5) (insulin #10 ea 12/07/22 01/11/23 Rx pump cart,automated,BT) atorvastatin 40 mg tablet 40 mg PO DAILY 12/22/22 01/23/23 History acetaminophen 500 mg tablet 1,000 mg PO TID #90 tabs 01/19/23 01/23/23 Rx (Tylenol Extra Strength) cefepime 1 gram solution for 1 g IM Q8H #15 ea 01/19/23 01/23/23 Rx injection gabapentin 300 mg capsule 300 mg PO TID #90 caps 01/19/23 01/23/23 Rx insulin aspart U-100 100 unit/mL 1 unit (0.01 mL) subcut 0730 #15 mL 01/19/23 Rx (3 mL) subcutaneous pen insulin aspart U-100 100 unit/mL 1 unit (0.01 mL) subcut 01/19/23 01/23/23 Rx (3 mL) subcutaneous pen 1130,1630,2100 #15 mL insulin glargine 100 unit/mL 20 unit (0.2 mL) subcut DAILY #10 01/19/23 01/23/23 Rx subcutaneous solution (Lantus mL U-100 Insulin) polyethylene glycol 3350 17 gram 17 g PO BID #60 ea 01/19/23 01/23/23 Rx oral powder packet (Miralax) sennosides 8.6 mg-docusate sodium 1 tab PO QAM #30 tabs 01/19/23 01/23/23 Rx 50 mg tablet (Senokot-S) vancomycin 1.25 gram intravenous 1.25 g IV Q12H #10 ea 01/19/23 01/23/23 Rx solution Patient History Medical History Encounter for pre-operative examination GERD (gastroesophageal reflux disease) Glaucoma History of seizure last seizure "couple years ago" -- d/t hypoglycemia Hypertension Infection of right foot Memory deficit Osteoarthritis Poorly controlled type 1 diabetes mellitus Surgical History History of appendectomy History of knee surgery Rt History of tonsillectomy Family History Other No family history of adverse response to anesthesia Social History Smoking Status: Never smoker Second Hand Exposure: No; Do You Dip or Chew Tobacco: No; Hx Alcohol Use: Yes Alcohol type: beer Hx Substance Use: Yes Last Used Substance: Unknown Last Used Substance Other:: months ago Substance Use Type Other:: medical Preferred Language: Kyrgyz Communication Ability: Effective 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: No Beliefs That Will Affect Care: None Current Living Situation: Spouse Feels Safe at Home: Yes Assistive Devices: Wheelchair Results & Data Vital Signs (Past 12 Hours) Vital Signs Temp Pulse Pulse Resp BP Pulse Ox O2 Del Method 01/26/23 11:50 36.5 C 94 H 18 157/79 H 97 Room Air 01/26/23 07:05 Room Air 01/26/23 06:01 107 H Laboratory Results Laboratory Results - last 48 hr 01/24/23 01/24/23 01/25/23 16:48 20:32 07:52 WBC RBC Hgb Hct MCV MCH MCHC RDW Std Deviation RDW Coeff of Denise Plt Count MPV Immature Gran % (Auto) Neut % (Auto) Lymph % (Auto) [place] % (Auto) Eos % (Auto) Baso % (Auto) Neut # (Auto) Lymph # (Auto) [place] # (Auto) Eos # (Auto) Baso # (Auto) Immature Gran # (Auto) PT INR Sodium Potassium Chloride Carbon Dioxide Anion Gap BUN Creatinine Est Cr Clr Drug Dosing Est GFR ( Amer) Est GFR (Non-Af Amer) BUN/Creatinine Ratio Glucose POC Glucose 246 H 220 H 299 H Calcium Magnesium Total Bilirubin AST ALT Alkaline Phosphatase Total Protein Albumin Globulin Albumin/Globulin Ratio Random Vancomycin 01/25/23 01/25/23 01/25/23 08:17 08:17 08:17 WBC 12.65 H RBC 2.92 L Hgb 8.7 L Hct 25.9 L MCV 88.7 MCH 29.8 MCHC 33.6 RDW Std Deviation 40.6 RDW Coeff of Denise 12.5 Plt Count 627 H MPV 8.9 L Immature Gran % (Auto) 0.6 Neut % (Auto) 82.7 Lymph % (Auto) 7.7 [place] % (Auto) 7.4 Eos % (Auto) 0.9 Baso % (Auto) 0.7 Neut # (Auto) 10.46 H Lymph # (Auto) 0.97 L [place] # (Auto) 0.94 H Eos # (Auto) 0.12 Baso # (Auto) 0.09 Immature Gran # (Auto) 0.07 PT 11.4 INR 1.0 Sodium 133 L Potassium 4.2 Chloride 99 Carbon Dioxide 28 Anion Gap 6 BUN 18 Creatinine 0.56 L Est Cr Clr Drug Dosing 127.9 Est GFR ( Amer) 128.5 Est GFR (Non-Af Amer) 110.9 BUN/Creatinine Ratio 32.1 H Glucose 322 H* POC Glucose Calcium 8.3 L Magnesium 1.8 Total Bilirubin 0.4 AST 63 H ALT 46 Alkaline Phosphatase 236 H Total Protein 6.5 Albumin 2.7 L Globulin 3.8 Albumin/Globulin Ratio 0.7 L Random Vancomycin 01/25/23 01/25/23 01/25/23 11:35 16:38 20:08 WBC RBC Hgb Hct MCV MCH MCHC RDW Std Deviation RDW Coeff of Denise Plt Count MPV Immature Gran % (Auto) Neut % (Auto) Lymph % (Auto) [place] % (Auto) Eos % (Auto) Baso % (Auto) Neut # (Auto) Lymph # (Auto) [place] # (Auto) Eos # (Auto) Baso # (Auto) Immature Gran # (Auto) PT INR Sodium Potassium Chloride Carbon Dioxide Anion Gap BUN Creatinine Est Cr Clr Drug Dosing Est GFR ( Amer) Est GFR (Non-Af Amer) BUN/Creatinine Ratio Glucose POC Glucose 279 H 189 H 223 H Calcium Magnesium Total Bilirubin AST ALT Alkaline Phosphatase Total Protein Albumin Globulin Albumin/Globulin Ratio Random Vancomycin 01/26/23 01/26/23 01/26/23 05:25 05:25 05:25 WBC 11.65 H RBC 2.89 L Hgb 8.4 L Hct 25.5 L MCV 88.2 MCH 29.1 MCHC 32.9 RDW Std Deviation 40.1 RDW Coeff of Denise 12.6 Plt Count 553 H MPV 8.8 L Immature Gran % (Auto) 0.4 Neut % (Auto) 75.1 Lymph % (Auto) 12.8 [place] % (Auto) 9.5 Eos % (Auto) 1.5 Baso % (Auto) 0.7 Neut # (Auto) 8.74 H Lymph # (Auto) 1.49 [place] # (Auto) 1.11 H Eos # (Auto) 0.18 Baso # (Auto) 0.08 Immature Gran # (Auto) 0.05 PT 11.0 INR 1.0 Sodium 130 L Potassium 4.1 Chloride 97 L Carbon Dioxide 27 Anion Gap 6 BUN 29 H Creatinine 0.70 Est Cr Clr Drug Dosing 102.3 Est GFR ( Amer) 117.2 Est GFR (Non-Af Amer) 101.1 BUN/Creatinine Ratio 41.4 H Glucose 368 H* POC Glucose Calcium 8.5 L Magnesium 1.7 Total Bilirubin 0.3 AST 30 ALT 36 Alkaline Phosphatase 226 H Total Protein 6.4 Albumin 2.6 L Globulin 3.8 Albumin/Globulin Ratio 0.7 L Random Vancomycin 01/26/23 01/26/23 01/26/23 05:25 07:43 07:44 WBC RBC Hgb Hct MCV MCH MCHC RDW Std Deviation RDW Coeff of Denise Plt Count MPV Immature Gran % (Auto) Neut % (Auto) Lymph % (Auto) [place] % (Auto) Eos % (Auto) Baso % (Auto) Neut # (Auto) Lymph # (Auto) [place] # (Auto) Eos # (Auto) Baso # (Auto) Immature Gran # (Auto) PT INR Sodium Potassium Chloride Carbon Dioxide Anion Gap BUN Creatinine Est Cr Clr Drug Dosing Est GFR ( Amer) Est GFR (Non-Af Amer) BUN/Creatinine Ratio Glucose POC Glucose 404 H* 399 H* Calcium Magnesium Total Bilirubin AST ALT Alkaline Phosphatase Total Protein Albumin Globulin Albumin/Globulin Ratio Random Vancomycin 16.5 01/26/23 11:33 WBC RBC Hgb Hct MCV MCH MCHC RDW Std Deviation RDW Coeff of Denise Plt Count MPV Immature Gran % (Auto) Neut % (Auto) Lymph % (Auto) [place] % (Auto) Eos % (Auto) Baso % (Auto) Neut # (Auto) Lymph # (Auto) [place] # (Auto) Eos # (Auto) Baso # (Auto) Immature Gran # (Auto) PT INR Sodium Potassium Chloride Carbon Dioxide Anion Gap BUN Creatinine Est Cr Clr Drug Dosing Est GFR ( Amer) Est GFR (Non-Af Amer) BUN/Creatinine Ratio Glucose POC Glucose 205 H Calcium Magnesium Total Bilirubin AST ALT Alkaline Phosphatase Total Protein Albumin Globulin Albumin/Globulin Ratio Random Vancomycin Microbiology 01/23/23 Unknown Foot,Right Gram Stain - Final 01/23/23 Unknown Foot,Right Aerobic and Anaerobic Culture - Preliminary Staph aureus MRSA 01/23/23 15:05 Foot Gram Stain - Final 01/23/23 15:05 Foot Aerobic and Anaerobic Culture - Preliminary Staph aureus MRSA 01/23/23 15:45 Blood Aerobic Blood Culture - Preliminary No growth in Aerobic bottle after 48 hours. 01/23/23 15:45 Blood Anaerobic Blood Culture - Final 01/23/23 13:05 Blood Aerobic Blood Culture - Preliminary No growth in Aerobic bottle after 48 hours. 01/23/23 13:05 Blood Anaerobic Blood Culture - Preliminary No growth in Anaerobic bottle after 48 hours. Diagnostic Findings Foot CT 01/23/23 15:54 CT SCAN OF THE RIGHT FOOT WITH IV CONTRAST CLINICAL HISTORY: Postoperative foot infection. COMPARISON STUDY: CT scan of the right foot dated 12/21/2022. Radiographs of the right foot dated 01/11/2023. TECHNIQUE: Following the administration of 89 cc of Optiray 350, CT scan of the right foot is performed from the ankle to the base of the foot. Images are reviewed in the axial, sagittal, and coronal planes. IV contrast was administered without complication. A dose lowering technique was utilized adhering to the principles of ALARA. Note that interpretation is suboptimal without current plain film correlate. CT DOSE: 190.38 mGy.cm FINDINGS: The skeletal structures are heterogeneously osteopenic. The ankle mortise is intact. No joint effusion is seen. An Osteochondral defect is suggested in the lateral talar dome. Hardware has been removed from the right midfoot as compared to the 01/11/2023 radiographs. Extensive destructive change/fractures are again seen throughout the mid foot with numerous displaced bony fragments and erosions. There are comminuted fractures involving the middle and lateral cuneiforms, as well as subacute fractures of the second through fifth metatarsals. There are also likely small fractures involving the cuboid and medial cuneiform. There is fragmentation of the navicular. Screw tracks are noted in the calcaneus. There is a large complex gas and fluid-containing fluid collection seen along the plantar aspect of the midfoot interdigitating around the fractured bones. This extends from the distal tarsal row to distal shafts of the metatarsals, centered below the first metatarsal. This measures approximately 2.5 x 6.5 x 3.6 cm in aggregate dimension and is typical for an abscess. There is significant surrounding soft tissue edema. Several gas containing tract extend to the dermal surface along the dorsum of the foot. Imaged portions of the Achilles tendon appear intact. IMPRESSION: Again seen are extensive fractures throughout the tarsal and metatarsal bones as above. There is increasing bony fragmentation/displacement with erosive change throughout the mid foot as detailed above, with a large gas and fluid collection containing interdigitating around these bones along the plantar aspect of the midfoot. This is highly suspicious for infection, likely representing extensive osteomyelitis with a large multiloculated abscess. ACT 112: Negative or not required by law. Electronically signed by: Lebron Beard M.D. 01/23/2023 5:48 PM Duplex Scan Lower Extremity Artery 01/24/23 08:52 ULTRASOUND BILATERAL LOWER EXTREMITY ARTERIAL CLINICAL HISTORY: Peripheral arterial disease. COMPARISON STUDY: No priors. TECHNIQUE: Real-time grayscale and color Doppler sonography of the right and left lower extremity is performed from the inguinal crease to the foot. Ankle- brachial indices were not assessed due to recent foot surgery. FINDINGS: Right lower extremity: Atherosclerotic plaque and irregularity seen throughout the areas of the right lower extremity. There are triphasic arterial waveforms in the common femoral artery with velocities measuring up to 100 cm/s. The profunda femoris artery is patent with velocities measuring up to 79 cm/s. There are triphasic to biphasic waveforms throughout the superficial femoral and popliteal arteries. Velocities in the superficial femoral artery measure up to 123 cm/s, and velocities in the popliteal artery measuring up to 153 cm/s. There is three-vessel runoff to the foot. The calf arteries are suboptimally assessed due to heavy calcification. There are biphasic arterial waveforms in the calf arteries. The calf arteries show slightly blunted arterial upstroke. Velocities in the calf arteries measure up to 139 cm/s. The dorsalis pedis artery is patent with velocities measuring up to 63 cm/s. Left lower extremity: Atherosclerotic plaque and irregularity seen throughout the arteries of the left lower extremity. There are triphasic waveforms in the common femoral artery with velocities measuring up to 124 cm/s. The profunda femoris artery is patent with velocities measuring up to 81 cm/s. There are triphasic to biphasic waveforms throughout the superficial femoral artery and popliteal artery. Velocities in the superficial femoral artery measure up to 147 cm/s, and velocities in the popliteal artery measure up to 108 cm/s. There is three-vessel runoff to the foot. The calf arteries are subo ptimally assessed due to dense calcification. There is mildly blunted arterial upstroke in the calf vessels. Velocities in the calf arteries measure up to 149 cm/s. The dorsalis pedis artery is patent with velocities measuring up to 61 cm/s. IMPRESSION: Atherosclerotic plaque with evidence of peripheral vascular disease as above. There is no sonographic evidence of high-grade stenosis or focal vessel cutoff throughout the arteries of the right or left lower extremity. Dictated: 01/24/2023 11:55 AM Transcribed: 01/24/2023 1:55 PM Amelia [id number] Electronically signed by: Lebron Beard M.D. 01/24/2023 2:10 PM Medications Administered Current Inpatient Medications Acetaminophen (Acetaminophen 325 Mg Tab) 650 mg PO Q4H PRN PRN Reason: Pain(1,2,3),headache, Or Fever Stop: 02/22/23 23:15 Last Admin: 01/24/23 20:46 Dose: 650 mg Atorvastatin Calcium (Atorvastatin 40 Mg Tab) 40 mg PO DAILY [facility]AMRA Stop: 02/23/23 08:59 Last Admin: 01/26/23 08:14 Dose: 40 mg Cyanocobalamin (Cyanocobalamin 1000 Mcg/Ml Vial) 1,000 mcg IM QAM [facility] Stop: 01/29/23 09:01 Last Admin: 01/26/23 08:13 Dose: 1,000 mcg Dextrose (Dextrose 50% 50 Ml Syringe) 25 - 50 ml IV UD PRN; Protocol PRN Reason: Hypoglycemia Protocol Stop: 02/22/23 20:22 Famotidine (Famotidine 20 Mg Tab) 20 mg PO BID [facility] Stop: 02/25/23 20:59 Gabapentin (Gabapentin 300 Mg Cap) 300 mg PO TID [facility] Stop: 02/22/23 23:15 Last Admin: 01/26/23 13:51 Dose: 300 mg Glucagon (Glucagon For Inj 1 Mg Vial) 1 mg SQ UD PRN; Protocol PRN Reason: Hypoglycemia Protocol Stop: 02/22/23 20:22 Glucose (Glucose 10 Tab/Tube) 4 - 8 tab PO UD PRN; Protocol PRN Reason: Hypoglycemia Treatment Stop: 02/22/23 20:22 Glucose (Glucose 40% Gel 15 Gm Tube) 15 - 30 gm PO UD PRN; Protocol PRN Reason: Hypoglycemia Protocol Stop: 02/22/23 20:22 Hydromorphone HCl (Hydromorphone Inj 2 Mg/Ml Syr/Vial) 1.5 mg IV Q4H PRN PRN Reason: Pain (6,7,8,9,10) Stop: 02/08/23 13:04 Last Admin: 01/26/23 13:51 Dose: 1.5 mg Hydromorphone HCl (Hydromorphone Inj 1 Mg/Ml Syringe) 1 mg IV Q4H PRN PRN Reason: Pain (1,2,3,4,5) & Pre PT Stop: 02/08/23 13:04 Last Admin: 01/26/23 06:55 Dose: 1 mg Vancomycin HCl 1,000 mg/ (Sodium Chloride) 270 mls @ 200 mls/hr IV Q12H [facility]; Protocol Stop: 03/09/23 17:59 Insulin Aspart (Insulin Aspart Per Unit Charge) 0 units SC DAILY@0730 [facility] Stop: 02/24/23 07:29 Last Admin: 01/26/23 08:23 Dose: 10 units Insulin Aspart (Insulin Aspart Per Unit Charge) 0 units SC 1130,1630,2100 [facility] Stop: 02/23/23 11:29 Last Admin: 01/26/23 12:12 Dose: 7 units Insulin Glargine (Lantus Per Unit Charge) 22 units SQ DAILY [facility] Stop: 02/24/23 08:59 Last Admin: 01/26/23 08:24 Dose: 22 units Melatonin (Melatonin 3 Mg Tab) 3 mg PO HS PRN PRN Reason: Sleep Stop: 02/23/23 20:55 Last Admin: 01/24/23 21:24 Dose: 3 mg Miscellaneous (Carbohydrates For Hypoglycemia ) 15 - 30 gm PO UD PRN PRN Reason: Hypoglycemia Protocol Stop: 02/22/23 20:22 Miscellaneous Information (Vancomycin Consult Active) 1 each N/A UD PRN PRN Reason: Consult Stop: 02/22/23 20:24 Miscellaneous Information (Pharmacy Glycemic Mgmt Consult) 1 each N/A UD PRN; Protocol PRN Reason: Consult Stop: 02/23/23 13:12 Oxycodone HCl (Oxycodone Hcl Ir 5 Mg Tab (Immediate Release)) 10 mg PO Q4H PRN PRN Reason: moderate pain Stop: 02/07/23 17:13 Last Admin: 01/26/23 12:12 Dose: 10 mg Pantoprazole Sodium (Pantoprazole 40 Mg Tab) 40 mg PO QAM [facility] Stop: 02/24/23 08:59 Last Admin: 01/26/23 08:12 Dose: Not Given Polyethylene Glycol (Polyethylene (Miralax) 17 Gm Pack) 17 gm PO BID [facility] Stop: 02/22/23 23:15 Last Admin: 01/26/23 08:12 Dose: 17 gm Senna/Docusate Sodium (Docusate Sodium/Senna 50/8.6mg Tab) 1 tab PO QAM [facility] Stop: 02/23/23 08:59 Last Admin: 01/26/23 08:13 Dose: 1 tab Sertraline HCl (Sertraline Hcl 100 Mg Tablet) 100 mg PO QAM [facility] Stop: 02/23/23 08:59 Last Admin: 01/26/23 08:14 Dose: 100 mg Sodium Hypochlorite (Dakin's Soln 0.125% Quarter Strength 473 Ml Btl) 1 appln EXT UD [facility] Stop: 02/25/23 08:29 Last Admin: 01/26/23 10:11 Dose: 1 appln
[2023-01-26] MEDS: ENOXAPARIN INJ 40 MG/0.4 ML SYR SQ SCH (17:03)
[2023-01-26] MEDS: VANCOMYCIN HCL 1,000 MG in SODIUM CHLORIDE 0.9% 250 ML IV SCH (17:10)
[2023-01-26] MEDS: FAMOTIDINE 20 MG TAB PO SCH (21:03)
[2023-01-26] MEDS: MELATONIN 3 MG TAB PO PRN (21:04)
[2023-01-27] MEDS: HYDROmorphone INJ 1 MG/ML SYRINGE IV PRN ×5 (05:16→22:25)
[2023-01-27] MEDS: VANCOMYCIN HCL 1,000 MG in SODIUM CHLORIDE 0.9% 250 ML IV SCH ×2 (05:16→17:37)
[2023-01-27] MEDS: oxyCODONE HCL IR 5 MG TAB (IMMEDIATE RELEASE) PO PRN (06:28)
[2023-01-27 07:44] LABS: Basophils # (auto) 0.07 K/uL (0-0.2); Basophils % (auto) 0.7 %; Eosinophils # (auto) 0.23 K/uL (0-0.50); Eosinophils % (auto) 2.4 %; Hematocrit (blood only) 25.9 % (42.0-52.0); Hemoglobin 8.4 g/dl (14.0-18.0); Immature Granulocytes # (auto) 0.06 K/uL (0.01-0.20); Immature Granulocytes % (auto) 0.6 %; Lymphocytes % (auto) 11.5 %; Mean Corpuscular Hgb Conc 32.4 g/dL (32.0-36.0); Mean Corpuscular Volume 89.3 fL (80.0-100.0); Mean Platelet Volume 8.8 fL (9.4-12.4); Monocytes # (auto) 0.99 K/uL (0.11-0.59); Monocytes % (auto) 10.3 %; Neutrophils # (auto) 7.13 K/uL (1.40-6.50); Neutrophils % (auto) 74.5 %; Platelet Count 525 K/uL (130-400); RDW Coefficient of Variation 12.6 % (11.5-14.5); White Blood Count 9.58 K/ul (4.8-10.8)
[2023-01-27 07:58] LABS: Albumin Globulin Ratio 0.8 (0.9-2); Albumin Level 2.7 gm/dl (3.4-5.0); BUN Creatinine Ratio 35.8 (10-20); Bilirubin,Total 0.3 mg/dl (0.2-1.0); Calcium 8.5 mg/dl (8.6-10.3); Creatinine Clr Calc Pharmacy 106.4 ml/min; Est GFR (African American) 119.4 ml/min; Globulin 3.6 gm/dl (2.5-4.0); Magnesium 1.8 mg/dl (1.7-2.4); Potassium 4.1 mmol/L (3.5-5.1); Total Protein 6.3 gm/dl (6.0-8.3)
--- NOTE | 2023-01-27 08:14 | Hospitalist Progress Note ---
Date of Service January 27, 2023 Assessment & Plan (1) Abscess of right foot: Plan: Recent admission 01/11 after nausea/vomiting/signs of infection at surgical site after being called w/ positive blood cultures for MSSA outpatient blood cultures Was admitted from 01/11 -- 01/19 and discharged on Ancef, but apparently was switched to Cefepime/Vanco at [facility] at some point and then changed back to Ancef on 01/22 with end date 01/24 ESR 74, CRP 10.5, procal CT imaging concerning for abscess: * Report: Again seen are extensive fractures throughout the tarsal and metatarsal bones as above. There is increasing bony fragmentation/displacement with erosive change throughout the mid foot as detailed above, with a large gas and fluid collection containing interdigitating around these bones along the plantar aspect of the midfoot. This is highly suspicious for infection, likely representing extensive osteomyelitis with a large multiloculated abscess. Dr Collier, podiatry on consult POD#4 s/p I&D Right foot, debridement of right foot. with Dr Collier on 01/23 (after having removal of Right Lower Extremity External Fixator(Right) on 01/15) Was on Vanco/Zosyn, discontinued Zosyn -- remains on Vanco given cx positive for MRSA WBC trending down, now wnl. Remains afebrile Blood cultures still remain NGTD (previously was bacteremic last admission from outpatient office blood cultures w/ MSSA bacteremia, to have completed abx 01/24) Vascular study w/ PAD, no intervention planned by Dr Dailey Having ongoing concerns for need for amputation for source control, possibly even BKA per discussion w/ vascular provider. Podiatry eval 01/26 and application of dankin solution To change dressing BID, order placed Started Lovenox for DVT prophylaxis while awaiting need for possible surgery, can hold prior to surgery for prevention DVT given recent surgery/immobilized state w/ WB status Monitoring over the weekend but possible (and likely need for) surgery this upcoming week, possibly sunday. To remain NWB RLE, PT/OT consulted and following Of note, patient inquiring about hyperbaric oxygen treatments PRIOR to need for surgery, however did discuss this is not typically how it is done but will touch base w/ wound center on Sunday if this is option (or if option after surgical intervention) Continued to monitor over the weekend ID to f/u on plan for sunday, did discuss w/ Dr Doe and to continue Vancomycin for now (can consider once daily Dapto at [place] for ease of administration, but kidney function acceptable to continue Vanco for now) (2) MSSA bacteremia: Plan: Was being treated with Cefepime and Ancef at [facility] , per pharmacy switched to Ancef 01/22 ECHO last admit NEGATIVE for endocarditics Continue Vanco, ak Zosyn as above. ID consulted BCx NGTD (3) Thrombocytosis: Plan: Has been ongoing since last admission, initial workup had been negative Likely reactive due to his acute infection B12 low last month, will place on IM injections while inpatient consider reaching out to Dr Beavers if needed Improving w/ abx treatment Monitor CBC (4) Poorly controlled type 1 diabetes mellitus: Plan: A1c 8.6 Pharmacy consult -- BSGs elevated AM 01/26 to 399/404 --> pharmacy notified/adjustments made and most recent BSGs better controlled but was 279 on AM labs Continue to monitor (5) Opioid abuse: Plan: Hx of such Tylenol/dilaudid on admission --> increased IV dilaudid/PO Oxycodone w/ s ignificant improvement but given infection/WBC improving will d/c the 1.5mg Dilaudid order given hasn't used since last evening and stable on the 1mg dose and can continue the 10mg oxycodone as needed for now Is moving his bowels -- monitor for any increased need for bowel regimen (6) Dyslipidemia: Plan: Continue statin (7) Depression: Plan: Chronic/stable on sertraline daily which is continued, however some depression about need for amputation of his foot/toes. No HI/SI at present. Monitor (8) GERD (gastroesophageal reflux disease): Plan: chronic/stable Continue protonix (9) Hypertension: Plan: Initially hypertensive with systolics in the 180s's, likely due to pain Is not on antihypertensive therapy outpatient BPs improving w/ pain control, stable 163/82 and likely aspect related to pain (10) Peripheral arterial disease: Plan: vascular consulted, minimal disease and no intervention. rec tx gangrenous infection to foot/surgery (11) Anemia: Plan: hgb in 7s at admit has remained stable during inpatient stay, no active bleeding hgb 8.4, same as day prior B12 low in December and placed on B12 IM while inpatient (day 3/) and continued. Folate was 15 Will check iron panel w/ AM labs given prior iron 14 but no other labs checked, consider IV venofer if blood cultures remain NGTD vs PO supplementation Monitor CBC in AM Plan continued inpatient stay on abx, monitoring bcx possible need for surgery upcoming week, appreciate podiatry assistance w/ obtaining source control Touching base w/ ID again on Sunday to convene on plan if any changes in culture Admission and Anticipated Discharge Date Admission Date: January 23, 2023 Supervising Physician Co-Signing Physician Notes The patient was not seen by me. The chart was reviewed. Case discussed with MAC Cerrato. Agree with assessment and plan Subjective Eval this morning, actually appears to be looking better as far as overall energy/fatigue, but toes still gangrenous in appearance. Pain level reported improvement. Moving bowels, no abdominal pain. He denies any fevers/chills, no chest pain or shortness of breath. No lightheaded/dizziness. States seen by Dr Collier last night but not yet today. Dressing changed at that time. Discussed concerns for amputation and determination to be had by sunday. He is inquiring about hyperbaric oxygen treatments. Discussed will ask CM to reach out to see if an option but usually this would be after the amputation in assistance w/ wound healing and he would like this to be done prior to any need for surgery/amputation. Will continue to monitor. WBC wnl. BSgs better today. Physical Exam Physical Exam: General: WD male sitting up in bed, NAD, appears much improved as far as pain/fatigue HEENT: head normocephalic, atraumatic, mmm, trachea midline Resp: CTA, no w/c/r, on room air CV: RRR, slightly tachy 90s to low 100s, no significant m/r/g, no pitting edema GI: +BS, soft, nontender : no hammer MSK?Neuro: dressing to R foot c/d/i (changed by ortho this morning) 1st/2nd toe necrotic/purple appearance with coolness to touch, no cap refill (reports neuropathy at baseline), some blister to anterior surface 2nd toe L foot drop (baseline) no slurred speech/facial droop Psych: alert to person/place, impulsive at times but much more calm/cooperative Results & Data Results & Data Vital Signs (Past 12 Hours) Vital Signs Temp Pulse Pulse Resp BP Pulse Ox O2 Del Method 01/27/23 08:07 37.1 C 108 H 18 147/83 H 97 Room Air 01/27/23 07:27 95 H 01/27/23 02:47 36.9 C 97 H 16 159/81 H 99 Room Air 01/26/23 22:01 104 H 01/26/23 22:53 37.4 C 100 H 18 136/76 95 Room Air 01/26/23 21:50 Room Air Laboratory Results 01/27/23 01/27/23 01/27/23 Range/Units 07:33 07:23 07:23 WBC (4.8-10.8) K/ul RBC (4.70-6.10) M/uL Hgb (14.0-18.0) g/dl Hct (42.0-52.0) % MCV (80.0-100.0) fL MCH (25.0-34.0) pg MCHC (32.0-36.0) g/dL RDW Std Deviation (36.4-46.3) fL RDW Coeff of Denise (11.5-14.5) % Plt Count (130-400) K/uL MPV (9.4-12.4) fL Immature Gran % (Auto) % Neut % (Auto) % Lymph % (Auto) % [place] % (Auto) % Eos % (Auto) % Baso % (Auto) % Neut # (Auto) (1.40-6.50) K/uL Lymph # (Auto) (1.2-3.4) K/uL [place] # (Auto) (0.11-0.59) K/uL Eos # (Auto) (0-0.50) K/uL Baso # (Auto) (0-0.2) K/uL Immature Gran # (Auto) (0.01-0.20) K/uL PT Pending INR Pending Sodium 134 L (136-145) mmol/L Potassium 4.1 (3.5-5.1) mmol/L Chloride 101 (98-107) mmol/L Carbon Dioxide 28 (21-32) mmol/L Anion Gap 5 (3-11) BUN 24 H (6-23) mg/dl Creatinine 0.67 (0.6-1.4) mg/dl Est Cr Clr Drug Dosing 106.4 ml/min Est GFR ( Amer) 119.4 ml/min Est GFR (Non-Af Amer) 103.0 ml/min BUN/Creatinine Ratio 35.8 H (10-20) Glucose 232 H (70-99(Fasting)) mg/dl POC Glucose 279 H (70-99) mg/dl Calcium 8.5 L (8.6-10.3) mg/dl Magnesium 1.8 (1.7-2.4) mg/dl Total Bilirubin 0.3 (0.2-1.0) mg/dl AST 27 (13-39) U/L ALT 33 (7-52) U/L Alkaline Phosphatase 195 H (34-104) U/L Total Protein 6.3 (6.0-8.3) gm/dl Albumin 2.7 L (3.4-5.0) gm/dl Globulin 3.6 (2.5-4.0) gm/dl Albumin/Globulin Ratio 0.8 L (0.9-2) 01/27/23 01/26/23 01/26/23 Range/Units 07:23 20:19 16:34 WBC 9.58 (4.8-10.8) K/ul RBC 2.90 L (4.70-6.10) M/uL Hgb 8.4 L (14.0-18.0) g/dl Hct 25.9 L (42.0-52.0) % MCV 89.3 (80.0-100.0) fL MCH 29.0 (25.0-34.0) pg MCHC 32.4 (32.0-36.0) g/dL RDW Std Deviation 41.0 (36.4-46.3) fL RDW Coeff of Denise 12.6 (11.5-14.5) % Plt Count 525 H (130-400) K/uL MPV 8.8 L (9.4-12.4) fL Immature Gran % (Auto) 0.6 % Neut % (Auto) 74.5 % Lymph % (Auto) 11.5 % [place] % (Auto) 10.3 % Eos % (Auto) 2.4 % Baso % (Auto) 0.7 % Neut # (Auto) 7.13 H (1.40-6.50) K/uL Lymph # (Auto) 1.10 L (1.2-3.4) K/uL [place] # (Auto) 0.99 H (0.11-0.59) K/uL Eos # (Auto) 0.23 (0-0.50) K/uL Baso # (Auto) 0.07 (0-0.2) K/uL Immature Gran # (Auto) 0.06 (0.01-0.20) K/uL PT INR Sodium (136-145) mmol/L Potassium (3.5-5.1) mmol/L Chloride (98-107) mmol/L Carbon Dioxide (21-32) mmol/L Anion Gap (3-11) BUN (6-23) mg/dl Creatinine (0.6-1.4) mg/dl Est Cr Clr Drug Dosing ml/min Est GFR ( Amer) ml/min Est GFR (Non-Af Amer) ml/min BUN/Creatinine Ratio (10-20) Glucose (70-99(Fasting)) mg/dl POC Glucose 146 H 92 (70-99) mg/dl Calcium (8.6-10.3) mg/dl Magnesium (1.7-2.4) mg/dl Total Bilirubin (0.2-1.0) mg/dl AST (13-39) U/L ALT (7-52) U/L Alkaline Phosphatase (34-104) U/L Total Protein (6.0-8.3) gm/dl Albumin (3.4-5.0) gm/dl Globulin (2.5-4.0) gm/dl Albumin/Globulin Ratio (0.9-2) 01/26/23 01/26/23 Range/Units 11:33 05:25 WBC (4.8-10.8) K/ul RBC (4.70-6.10) M/uL Hgb (14.0-18.0) g/dl Hct (42.0-52.0) % MCV (80.0-100.0) fL MCH (25.0-34.0) pg MCHC (32.0-36.0) g/dL RDW Std Deviation (36.4-46.3) fL RDW Coeff of Denise (11.5-14.5) % Plt Count (130-400) K/uL MPV (9.4-12.4) fL Immature Gran % (Auto) % Neut % (Auto) % Lymph % (Auto) % [place] % (Auto) % Eos % (Auto) % Baso % (Auto) % Neut # (Auto) (1.40-6.50) K/uL Lymph # (Auto) (1.2-3.4) K/uL [place] # (Auto) (0.11-0.59) K/uL Eos # (Auto) (0-0.50) K/uL Baso # (Auto) (0-0.2) K/uL Immature Gran # (Auto) (0.01-0.20) K/uL PT INR Sodium (136-145) mmol/L Potassium (3.5-5.1) mmol/L Chloride (98-107) mmol/L Carbon Dioxide (21-32) mmol/L Anion Gap (3-11) BUN (6-23) mg/dl Creatinine (0.6-1.4) mg/dl Est Cr Clr Drug Dosing ml/min Est GFR ( Amer) ml/min Est GFR (Non-Af Amer) ml/min BUN/Creatinine Ratio (10-20) Glucose (70-99(Fasting)) mg/dl POC Glucose 205 H (70-99) mg/dl Calcium (8.6-10.3) mg/dl Magnesium 1.7 (1.7-2.4) mg/dl Total Bilirubin (0.2-1.0) mg/dl AST (13-39) U/L ALT (7-52) U/L Alkaline Phosphatase (34-104) U/L Total Protein (6.0-8.3) gm/dl Albumin (3.4-5.0) gm/dl Globulin (2.5-4.0) gm/dl Albumin/Globulin Ratio (0.9-2) PG Care Time/CCT Total # of Minutes Spent Total Time Spent with Patient: Total time spent is greater than 50% in coordination of care (as documented) at patient's floor/unit and/or counseling patient: Coding Level of Care Code 06143 SUB INP/OBS CARE 3/50MIN Diagnoses Abscess of right foot L02.611 MSSA bacteremia R78.81; B95.61 Thrombocytosis D75.839 Poorly controlled type 1 diabetes mellitus E10.65 Opioid abuse F11.10 Dyslipidemia E78.5 Depression F32.A GERD (gastroesophageal reflux disease) K21.9 Hypertension I10 Peripheral arterial disease I73.9 Anemia D64.9
[2023-01-27 08:16] LABS: Prothrombin Time 10.9 Seconds (9.0-12.0)
[2023-01-27] MEDS: POLYETHYLENE (MIRALAX) 17 GM PACK PO SCH ×2 (09:01→20:21)
[2023-01-27] MEDS: GABAPENTIN 300 MG CAP PO SCH ×3 (09:01→20:23)
[2023-01-27] MEDS: FAMOTIDINE 20 MG TAB PO SCH ×2 (09:01→20:23)
[2023-01-27] MEDS: SERTRALINE HCL 100 MG TABLET PO SCH (09:02)
[2023-01-27] MEDS: PANTOprazole 40 MG TAB PO SCH (09:02)
[2023-01-27] MEDS: DOCUSATE SODIUM/SENNA 50/8.6MG TAB PO SCH (09:02)
[2023-01-27] MEDS: ATORVASTATIN 40 MG TAB PO SCH (09:02)
[2023-01-27] MEDS: CYANOCOBALAMIN 1000 MCG/ML VIAL IM SCH (09:02)
[2023-01-27] MEDS: INSULIN ASPART PER UNIT CHARGE SC SCH ×4 (09:08→20:20)
[2023-01-27] MEDS: LANTUS PER UNIT CHARGE SQ SCH (09:08)
[2023-01-27] MEDS: ENOXAPARIN INJ 40 MG/0.4 ML SYR SQ SCH (16:59)
[2023-01-28] MEDS: HYDROmorphone INJ 1 MG/ML SYRINGE IV PRN ×5 (03:05→21:36)
[2023-01-28] MEDS ORDERED: VANCOMYCIN LEVEL ONE (05:30)
[2023-01-28] MEDS: VANCOMYCIN HCL 1,000 MG in SODIUM CHLORIDE 0.9% 250 ML IV SCH (06:36)
[2023-01-28 06:55] LABS: Basophils # (auto) 0.08 K/uL (0-0.2); Basophils % (auto) 0.7 %; Eosinophils # (auto) 0.27 K/uL (0-0.50); Eosinophils % (auto) 2.4 %; Hematocrit (blood only) 25.8 % (42.0-52.0); Hemoglobin 8.4 g/dl (14.0-18.0); Immature Granulocytes # (auto) 0.05 K/uL (0.01-0.20); Immature Granulocytes % (auto) 0.5 %; Lymphocytes # (auto) 1.25 K/uL (1.2-3.4); Lymphocytes % (auto) 11.3 %; Mean Corpuscular Hemoglobin 28.8 pg (25.0-34.0); Mean Corpuscular Hgb Conc 32.6 g/dL (32.0-36.0); Mean Corpuscular Volume 88.4 fL (80.0-100.0); Mean Platelet Volume 8.8 fL (9.4-12.4); Monocytes # (auto) 0.99 K/uL (0.11-0.59); Neutrophils # (auto) 8.42 K/uL (1.40-6.50); Neutrophils % (auto) 76.1 %; Platelet Count 566 K/uL (130-400); RDW Coefficient of Variation 12.3 % (11.5-14.5); RDW Standard Deviation 39.9 fL (36.4-46.3); Red Blood Count 2.92 M/uL (4.70-6.10); White Blood Count 11.06 K/ul (4.8-10.8)
[2023-01-28 07:12] LABS: Albumin Globulin Ratio 0.7 (0.9-2); Albumin Level 2.7 gm/dl (3.4-5.0); BUN Creatinine Ratio 43.1 (10-20); Bilirubin,Total 0.3 mg/dl (0.2-1.0); C Reactive Protein 5.12 mg/dl (0-0.5); Calcium 8.6 mg/dl (8.6-10.3); Creatinine Clr Calc Pharmacy 139.1 ml/min; Est GFR (African American) 133.5 ml/min; Est GFR (Non-African American) 115.2 ml/min; Magnesium 1.7 mg/dl (1.7-2.4); Potassium 4.1 mmol/L (3.5-5.1); Total Protein 6.7 gm/dl (6.0-8.3)
[2023-01-28 07:19] LABS: Prothrombin Time 11.2 Seconds (9.0-12.0)
[2023-01-28 07:32] LABS: Ferritin 245.4 ng/ml (8-388)
[2023-01-28] MEDS: FAMOTIDINE 20 MG TAB PO SCH ×2 (08:03→19:35)
[2023-01-28] MEDS: ATORVASTATIN 40 MG TAB PO SCH (08:03)
[2023-01-28] MEDS: SERTRALINE HCL 100 MG TABLET PO SCH (08:03)
[2023-01-28] MEDS: GABAPENTIN 300 MG CAP PO SCH ×3 (08:03→19:35)
[2023-01-28] MEDS: PANTOprazole 40 MG TAB PO SCH (08:03)
[2023-01-28] MEDS: DOCUSATE SODIUM/SENNA 50/8.6MG TAB PO SCH (08:03)
[2023-01-28] MEDS: CYANOCOBALAMIN 1000 MCG/ML VIAL IM SCH (08:03)
[2023-01-28] MEDS: POLYETHYLENE (MIRALAX) 17 GM PACK PO SCH ×2 (08:03→19:34)
[2023-01-28] MEDS: LANTUS PER UNIT CHARGE SQ SCH (08:04)
[2023-01-28] MEDS: INSULIN ASPART PER UNIT CHARGE SC SCH ×4 (08:05→20:40)
--- NOTE | 2023-01-28 08:11 | Hospitalist Progress Note ---
Date of Service January 28, 2023 Assessment & Plan (1) Abscess of right foot: Plan: Recent admission 01/11 after nausea/vomiting/signs of infection at surgical site after being called w/ positive blood cultures for MSSA outpatient blood cultures Was admitted from 01/11 -- 01/19 and discharged on Ancef, but apparently was switched to Cefepime/Vanco at [facility] at some point and then changed back to Ancef on 01/22 with end date 01/24 ESR 74, CRP 10.5, procal CT imaging concerning for abscess: * Report: Again seen are extensive fractures throughout the tarsal and metatarsal bones as above. There is increasing bony fragmentation/displacement with erosive change throughout the mid foot as detailed above, with a large gas and fluid collection containing interdigitating around these bones along the plantar aspect of the midfoot. This is highly suspicious for infection, likely representing extensive osteomyelitis with a large multiloculated abscess. Dr Collier, podiatry on consult POD#5 s/p I&D Right foot, debridement of right foot. with Dr Collier on 01/23 (after having removal of Right Lower Extremity External Fixator(Right) on 01/15) Continue Vanco Cx +MRSA WBC trended down and was wnl but slightly elevated to 11k today. Afebrile Foot continues to look infected requiring surgical intervention for source control BCx remain NGTD Podiatry following, Dakin solution ordered and monitoring for demarcation at present. I suspect patient would benefit more from BKA given infection appearing to his heel starting To remain NWB to RLE, PT/OT on consult Lovenox SQ for DVT prophylaxis for now -- podiatry can hold further dosing if surgery tomorrow vs Sunday ID to follow up tomorrow Monitor labs on repeat Patient interested in hyperbaric O2 treatments, but discussed likely after surgery to help w/ wound healing and would not be appropriate to treat deeper infection (2) MSSA bacteremia: Plan: Was being treated with Cefepime and Ancef at [facility] , per pharmacy switched to Ancef 01/22 ECHO last admit NEGATIVE for endocarditics Continue Vanco, dc Zosyn as above. ID consulted BCx NGTD (3) Thrombocytosis: Plan: Has been ongoing since last admission, initial workup had been negative Likely reactive due to his acute infection B12 low last month, will place on IM injections while inpatient consider reaching out to Dr Beavers if needed Also iron panel checked w/ ADOLFO, PO supplementation for now over IV given current infection/prevention dextrose containing IV given his blood sugars Improving w/ abx treatment Monitor CBC (4) Poorly controlled type 1 diabetes mellitus: Plan: A1c 8.6 Pharmacy consult -- BSGs elevated AM 5/5 to 249, 222 on AM labs Pharmacy assistance appreciated for tighter control. Did have lows last admission and likely was not as aggressive due to such but good appetite reported and eating well/moving bowels and suggest tighter control w/ benefit Montior BSGs (5) Opioid abuse: Plan: Hx of such APAP/dilaudid d/c 1.5mg dilaudid dose, can use 1mg as needed, oxycodone 10mg and encouraged PO over IV Moving bowels, +BS on exam Monitor for increased need for bowel regimen (6) Dyslipidemia: Plan: Continue statin (7) Depression: Plan: Chronic/stable on sertraline daily which is continued, however some depression about need for amputation of his foot/toes vs BKA. No HI/SI at present. Monitor (8) GERD (gastroesophageal reflux disease): Plan: chronic/stable Continue protonix (9) Hypertension: Plan: Initially hypertensive with systolics in the 180s's, likely due to pain Is not on antihypertensive therapy outpatient BP elevations 2nd to pain, but stable and no headache/cp/sob/blurry vision or headache reported (10) Peripheral arterial disease: Plan: vascular consulted, minimal disease and no intervention. rec tx gangrenous infection to foot/surgery (11) Anemia: Plan: hgb in 7s at admit has remained stable during inpatient stay, no active bleeding hgb 8.4, same as day prior and remains as such B12 low in December and placed on B12 IM while inpatient (day 3/5) and continued. Folate was 15 Iron panel checked w/ iron LOW 11, transferrin low 163, trans % sat 7%. Ferritin not significantly elevated Will hold off IV venofer and schedule daily PO supplementation for now. If bcx remain negative can consider giving some IV venofer over PO to prevent issues w/ constipation if they occur however he has been moving his bowels Monitor CBC Plan continued inpatient stay, on Vanco which should cover for +MRSA cultures Suspect he will need BKA or at least further surgical intervention on his foot for source control given ongoing infection and recently completed 6wks IV abx however prior cultures were just staph and now +for MRSA Admission and Anticipated Discharge Date Admission Date: January 23, 2023 Supervising Physician Co-Signing Physician Notes The patient was not seen by me. The chart was reviewed. Case discussed with MAC Cerrato. Agree with assessment and plan Subjective Patient evaluated this morning, doing well other than pain control and would like something. RN to attempt oral first. Denies any fever/chills, chest pain, shortness of breath, abdominal pain, nausea or vomiting at present. BSGs to 249, he would like isaac Vivonet. Pharmacy to assist w/ glycemic management. Determination for possible surgery for tomorrow. Questions/concerns addressed at this time. Physical Exam Physical Exam: General: WD male laying in bed resting, NAD, reporting pain to his foot HEENT: head normocephalic, atraumatic, mmm, trachea midline Resp: CTA, no w/c/r, on room air CV: RRR, slightly tachy 90s to low 100s, no significant m/r/g, no pitting edema GI: +BS, soft, nontender : no hammer MSK?Neuro: dressing to R foot c/d/i but 1st/2nd toe necrotic/purple appearance with coolness to touch, no cap refill (reports neuropathy at baseline), some blister to anterior surface 2nd toe, also with area of eschar/ecchymosis and possible fluid to his right heel L foot drop (baseline) no slurred speech/facial droop Psych: alert to person/place, cooperative with exam Results & Data Results & Data Vital Signs (Past 12 Hours) Vital Signs Temp Pulse Pulse Resp BP Pulse Ox O2 Del Method 01/28/23 07:11 100 H 01/28/23 02:57 37.1 C 107 H 18 177/78 H 97 Room Air 01/27/23 21:58 115 H 01/27/23 22:18 37.2 C 107 H 18 162/81 H 96 Room Air Laboratory Results 01/28/23 01/28/23 01/28/23 Range/Units 07:45 06:26 06:26 WBC (4.8-10.8) K/ul RBC (4.70-6.10) M/uL Hgb (14.0-18.0) g/dl Hct (42.0-52.0) % MCV (80.0-100.0) fL MCH (25.0-34.0) pg MCHC (32.0-36.0) g/dL RDW Std Deviation (36.4-46.3) fL RDW Coeff of Denise (11.5-14.5) % Plt Count (130-400) K/uL MPV (9.4-12.4) fL Immature Gran % (Auto) % Neut % (Auto) % Lymph % (Auto) % [place] % (Auto) % Eos % (Auto) % Baso % (Auto) % Neut # (Auto) (1.40-6.50) K/uL Lymph # (Auto) (1.2-3.4) K/uL [place] # (Auto) (0.11-0.59) K/uL Eos # (Auto) (0-0.50) K/uL Baso # (Auto) (0-0.2) K/uL Immature Gran # (Auto) (0.01-0.20) K/uL PT (9.0-12.0) Seconds INR (0.9-1.1) Sodium 134 L (136-145) mmol/L Potassium 4.1 (3.5-5.1) mmol/L Chloride 101 (98-107) mmol/L Carbon Dioxide 28 (21-32) mmol/L Anion Gap 5 (3-11) BUN 22 (6-23) mg/dl Creatinine 0.51 L (0.6-1.4) mg/dl Est Cr Clr Drug Dosing 139.1 ml/min Est GFR ( Amer) 133.5 ml/min Est GFR (Non-Af Amer) 115.2 ml/min BUN/Creatinine Ratio 43.1 H (10-20) Glucose 222 H (70-99(Fasting)) mg/dl POC Glucose 249 H (70-99) mg/dl Calcium 8.6 (8.6-10.3) mg/dl Magnesium 1.7 (1.7-2.4) mg/dl Iron 11 L (35-175) mcg/dl TIBC 168 L (250-450) mcg/dl Unsaturated IBC 157 (155-355) mcg/dl Transferrin % Sat 7 L (20-50) % Ferritin 245.4 (8-388) ng/ml Total Bilirubin 0.3 (0.2-1.0) mg/dl AST 23 (13-39) U/L ALT 30 (7-52) U/L Alkaline Phosphatase 190 H (34-104) U/L C-Reactive Protein 5.12 H (0-0.5) mg/dl Total Protein 6.7 (6.0-8.3) gm/dl Albumin 2.7 L (3.4-5.0) gm/dl Globulin 4.0 (2.5-4.0) gm/dl Albumin/Globulin Ratio 0.7 L (0.9-2) Random Vancomycin 13.9 (10-20) mcg/ml 01/28/23 01/28/23 01/28/23 Range/Units 06:26 06:26 04:37 WBC 11.06 H (4.8-10.8) K/ul RBC 2.92 L (4.70-6.10) M/uL Hgb 8.4 L (14.0-18.0) g/dl Hct 25.8 L (42.0-52.0) % MCV 88.4 (80.0-100.0) fL MCH 28.8 (25.0-34.0) pg MCHC 32.6 (32.0-36.0) g/dL RDW Std Deviation 39.9 (36.4-46.3) fL RDW Coeff of Denise 12.3 (11.5-14.5) % Plt Count 566 H (130-400) K/uL MPV 8.8 L (9.4-12.4) fL Immature Gran % (Auto) 0.5 % Neut % (Auto) 76.1 % Lymph % (Auto) 11.3 % [place] % (Auto) 9.0 % Eos % (Auto) 2.4 % Baso % (Auto) 0.7 % Neut # (Auto) 8.42 H (1.40-6.50) K/uL Lymph # (Auto) 1.25 (1.2-3.4) K/uL [place] # (Auto) 0.99 H (0.11-0.59) K/uL Eos # (Auto) 0.27 (0-0.50) K/uL Baso # (Auto) 0.08 (0-0.2) K/uL Immature Gran # (Auto) 0.05 (0.01-0.20) K/uL PT 11.2 (9.0-12.0) Seconds INR 1.0 (0.9-1.1) Sodium (136-145) mmol/L Potassium (3.5-5.1) mmol/L Chloride (98-107) mmol/L Carbon Dioxide (21-32) mmol/L Anion Gap (3-11) BUN (6-23) mg/dl Creatinine (0.6-1.4) mg/dl Est Cr Clr Drug Dosing ml/min Est GFR ( Amer) ml/min Est GFR (Non-Af Amer) ml/min BUN/Creatinine Ratio (10-20) Glucose (70-99(Fasting)) mg/dl POC Glucose 228 H (70-99) mg/dl Calcium (8.6-10.3) mg/dl Magnesium (1.7-2.4) mg/dl Iron (35-175) mcg/dl TIBC (250-450) mcg/dl Unsaturated IBC (155-355) mcg/dl Transferrin % Sat (20-50) % Ferritin (8-388) ng/ml Total Bilirubin (0.2-1.0) mg/dl AST (13-39) U/L ALT (7-52) U/L Alkaline Phosphatase (34-104) U/L C-Reactive Protein (0-0.5) mg/dl Total Protein (6.0-8.3) gm/dl Albumin (3.4-5.0) gm/dl Globulin (2.5-4.0) gm/dl Albumin/Globulin Ratio (0.9-2) Random Vancomycin (10-20) mcg/ml 01/27/23 01/27/23 01/27/23 Range/Units 20:08 16:41 11:38 WBC (4.8-10.8) K/ul RBC (4.70-6.10) M/uL Hgb (14.0-18.0) g/dl Hct (42.0-52.0) % MCV (80.0-100.0) fL MCH (25.0-34.0) pg MCHC (32.0-36.0) g/dL RDW Std Deviation (36.4-46.3) fL RDW Coeff of Denise (11.5-14.5) % Plt Count (130-400) K/uL MPV (9.4-12.4) fL Immature Gran % (Auto) % Neut % (Auto) % Lymph % (Auto) % [place] % (Auto) % Eos % (Auto) % Baso % (Auto) % Neut # (Auto) (1.40-6.50) K/uL Lymph # (Auto) (1.2-3.4) K/uL [place] # (Auto) (0.11-0.59) K/uL Eos # (Auto) (0-0.50) K/uL Baso # (Auto) (0-0.2) K/uL Immature Gran # (Auto) (0.01-0.20) K/uL PT (9.0-12.0) Seconds INR (0.9-1.1) Sodium (136-145) mmol/L Potassium (3.5-5.1) mmol/L Chloride (98-107) mmol/L Carbon Dioxide (21-32) mmol/L Anion Gap (3-11) BUN (6-23) mg/dl Creatinine (0.6-1.4) mg/dl Est Cr Clr Drug Dosing ml/min Est GFR ( Amer) ml/min Est GFR (Non-Af Amer) ml/min BUN/Creatinine Ratio (10-20) Glucose (70-99(Fasting)) mg/dl POC Glucose 223 H 162 H 155 H (70-99) mg/dl Calcium (8.6-10.3) mg/dl Magnesium (1.7-2.4) mg/dl Iron (35-175) mcg/dl TIBC (250-450) mcg/dl Unsaturated IBC (155-355) mcg/dl Transferrin % Sat (20-50) % Ferritin (8-388) ng/ml Total Bilirubin (0.2-1.0) mg/dl AST (13-39) U/L ALT (7-52) U/L Alkaline Phosphatase (34-104) U/L C-Reactive Protein (0-0.5) mg/dl Total Protein (6.0-8.3) gm/dl Albumin (3.4-5.0) gm/dl Globulin (2.5-4.0) gm/dl Albumin/Globulin Ratio (0.9-2) Random Vancomycin (10-20) mcg/ml PG Care Time/CCT Total # of Minutes Spent Total Time Spent with Patient: Total time spent is greater than 50% in coordination of care (as documented) at patient's floor/unit and/or counseling patient: Coding Level of Care Code 01625 SUB INP/OBS CARE 3/50MIN Diagnoses Abscess of right foot L02.611 MSSA bacteremia R78.81; B95.61 Thrombocytosis D75.839 Poorly controlled type 1 diabetes mellitus E10.65 Opioid abuse F11.10 Dyslipidemia E78.5 Depression F32.A GERD (gastroesophageal reflux disease) K21.9 Hypertension I10 Peripheral arterial disease I73.9 Anemia D64.9
--- NOTE | 2023-01-28 09:19 | Pharmacy Report ---
Pharmacy PK ABX Note - Date of Service January 28, 2023 - Assessment and Plan Assessment 01/28: * Day #5 of vancomycin therapy. * Afebrile. White count at 11k today. SCr did improve today but remains at baseline for this patient (0.70 --> 0.67 --> 0.51). CRP showed improvement as well (10.5 --> 5.12). Await ID input on Sunday (01/29/23). * Random level today was therapeutic on current dose but expected to be subtherapeutic in 48 hours. Therefore, planning to increase the dose starting this evening. 01/26: * Right foot culture now growing MRSA. Improved leukocytosis (18 K -> 11 K). Blood cultures show no growth at 48 hours. Renal function stable. * Per ortho, patient likely to require partial amputation of right foot. 01/24: * 62 year old M receiving vancomycin and Zosyn for treatment of right foot infection concerning for abscess and osteomyelitis. Patient was recently discharged from [facility] to [facility] on 01/19. During this past admission, he was found to have MSSA bacteremia and treated with cefazolin per ID. This was ultimately broadened to vancomycin and cefepime due to persistent leukocytosis, slow improvement, and high risk of osteomyelitis to nearby bone. Patient was discharged to rehab on this regimen. Confirmed this morning with [facility] that patient received vancomycin and cefepime until 01/22 when it was changed to cefazolin monotherapy again per ID. Patient readmitted last evening due to worsening of infection and underwent right foot I&D w/ wound debridement. Cultures obtained. Broad spectrum antibiotics appropriate at this time. Plan Vancomycin * Current regimen: 1000 mg IV every 12 hours * Random level obtained 01/28/23 resulted as 13.9 mcg/mL. This is predicted to achieve target AUC/RAJESH of 400-600 mg/L.hr at the moment. However, level is expected to be subtherapeutic in 48 hours. * Change to 1250 mg IV every 12 hours. Predicted AUC at steady state: 487 mg/L.hr * Repeat random level ordered for: 01/30/23 Pharmacy will continue to follow and will adjust dose/frequency as necessary. Thank you. Pharmacy has transitioned to AUC monitoring for vancomycin. AUC/RAJESH is the preferred PK/PD target and is associated with decreased risk of nephrotoxicity compared to traditional trough targets.
--- NOTE | 2023-01-28 09:31 | Pharmacy Report ---
Pharmacy Glycemic Short Note 2 - Date of Service January 28, 2023 - Glycemic Short BSG Results (Last 24 hours): 01/27/23 01/27/23 01/27/23 11:38 16:41 20:08 Glucose POC Glucose 155 H 162 H 223 H 01/28/23 01/28/23 01/28/23 04:37 06:26 07:45 Glucose 222 H POC Glucose 228 H 249 H OUTPATIENT ANTIDIABETIC REGIMEN: * Per most recent endocrinology note/sanitation worker hosing machinery note from past admission in December 2022 * Lantus 25 units SC qAM * Novolog 5-6 units SC TID w/ meals (patient reports missing these doses often) * Plan appears to be for patient to transition to insulin pump * HbA1c: 9.4% (12/22/22) ASSESSMENT: 01/28/23 * BSGs yesterday were [phone] mg/dL. Patient received 49 units of insulin (22 units of basal and 27 units of bolus). * Fasting today is 249 mg/dL. * Fasting is trending down but still elevated. It appears patient requires roughly 50 units of insulin per day? So will increase basal to 23 units today with expectation that patient may truly require 24-25 units/day (home dose is 25 units) * For Novolog, continue tighter scale at breakfast. Tighten CR for the rest of the day. Patient's HS BSG check is always elevated so patient most likely requires more carbohydrate coverage at dinner. 01/26/23: * BSGs elevated yesterday, ranging 189-299 mg/dL * Received 20 units of basal and 30 units of Novolog * Will increase Lantus to 22 units today and tighten breakfast Novolog further * May require tightening of Novolog at lunch, dinner, HS, but will hold off one more day as prior lows were observed last admission w/ tighter coverage * Tighten goal range to 110-140 mg/dL today 01/24/23: * is a 62 year old male known to pharmacy glycemic consult from recent prior admission last week * Readmitted for worsening right foot infection w/ abscess/osteomyelitis * BSGs extremely labile last admission w/ frequent episodes of hyper/hypoglycemia * Pharmacy consulted at lunchtime for BSG > 400 mg/dL * Prior to consult, patient received 5 units of Lantus. Will give additional 15 units to equal 20 units for the day, which was reasonable last admission. * Will utilize parameters similar to last admission to start PLAN FOR INPATIENT GLYCEMIC CONTROL: * Basal insulin * Lantus 23 units SC daily * Bolus insulin * NovoLog per scale ACHS or Q6hrs while NPO * Goal Range: Low 110 mg/dL - High 140 mg/dL * Correction Factor: 25 mg/dL/unit at breakfast and 45 mg/dL/unit at lunch, dinner, and HS * Nutritional / Prandial insulin per carb ratio of 1 unit per 7 grams CHO consumed at breakfast and 10 grams CHO consumed at lunch, dinner, HS
[2023-01-28] MEDS: oxyCODONE HCL IR 5 MG TAB (IMMEDIATE RELEASE) PO PRN ×3 (09:46→19:34)
[2023-01-28] MEDS: FERROUS SULFATE 325 MG TAB PO SCH (11:02)
[2023-01-28] MEDS: ENOXAPARIN INJ 40 MG/0.4 ML SYR SQ SCH (16:52)
[2023-01-28] MEDS: VANCOMYCIN HCL 1,250 MG in SODIUM CHLORIDE 0.9% 250 ML IV SCH (17:16)
--- NOTE | 2023-01-28 17:50 | Orthopedic Progress Note ---
Date of Service January 28, 2023 Assessment & Plan (1) Diabetic infection of right foot: Plan: Patient seen, evaluated, and treated. Status post Incision and drainage right foot DOS 01/23/23 Right first and second toes remain cold, dark, dusky. Patient to be scheduled for wound debridement of dorsal midfoot wounds with application of wound vac 01/29/23. I did speak with Austen today about amputation of 1st, possibly 2nd toe concurrently. He did produce a note from Gisele who asks for a second opinion prior to any amputation. I discussed this with Austen. At this time I would ask Vascular confirm nonviability of toes for second opinion prior to surgical care. Dressing change at bedside. Dakin solution ordered. Minimal Dakin solution lightly applied to 4x4 gauze prior to application over wounds. Nursing to continue dressing changes BID. Patient is non weight bearing to right foot. Will continue to follow while in house. (2) Abscess of right foot: Admission and Anticipated Discharge Date Admission Date: January 23, 2023 Subjective Patient seen at bedside resting comfortably. He relates no complaints. He has both heels resting on bed with no off loading pillow as previously discussed. Physical Exam Constitutional: cooperative and comfortable Eyes: normal visual ortega by confrontation Respiratory: normal respiratory effort Cardiovascular: Rate/Rhythm: regular rate and regular rhythm Extremities: + pedal edema (Right foot first and second toes are dark and dusky, appear cyanotic.) Musculoskeletal: Extremities: + abnormal strength ((+) Right drop foot) Skin: + ulcer (Right retrocalcaneal heel pressure wound unstageable +Eschar ) and + wound (Right foot wounds w/ necrotic base adjacent Eschar) Neurologic: moves all extremities Psychiatric: Orientation: alert and oriented x 3 Results & Data Vital Signs (Past 12 Hours) Vital Signs Temp Pulse Pulse Resp BP Pulse Ox O2 Del Method 01/28/23 15:08 37.1 C 96 H 20 135/70 96 Room Air 01/28/23 14:47 108 H 01/28/23 12:02 37.0 C 103 H 18 157/78 H 97 Room Air 01/28/23 08:26 36.8 C 104 H 18 181/81 H 98 Room Air 01/28/23 07:11 100 H
[2023-01-29] MEDS: oxyCODONE HCL IR 5 MG TAB (IMMEDIATE RELEASE) PO PRN ×3 (00:09→21:36)
[2023-01-29] MEDS: HYDROmorphone INJ 1 MG/ML SYRINGE IV PRN ×11 (02:25→20:00)
[2023-01-29] MEDS: VANCOMYCIN HCL 1,250 MG in SODIUM CHLORIDE 0.9% 250 ML IV SCH ×2 (06:27→21:12)
[2023-01-29] MEDS ORDERED: Nursing to Pharmacy Communication SCH (07:15)
[2023-01-29 07:17] LABS: Basophils # (auto) 0.06 K/uL (0-0.2); Basophils % (auto) 0.5 %; Eosinophils # (auto) 0.29 K/uL (0-0.50); Eosinophils % (auto) 2.6 %; Hemoglobin 8.4 g/dl (14.0-18.0); Immature Granulocytes # (auto) 0.05 K/uL (0.01-0.20); Immature Granulocytes % (auto) 0.5 %; Lymphocytes # (auto) 1.39 K/uL (1.2-3.4); Lymphocytes % (auto) 12.6 %; Mean Corpuscular Hemoglobin 29.3 pg (25.0-34.0); Mean Corpuscular Hgb Conc 33.6 g/dL (32.0-36.0); Mean Corpuscular Volume 87.1 fL (80.0-100.0); Monocytes # (auto) 0.99 K/uL (0.11-0.59); Neutrophils # (auto) 8.26 K/uL (1.40-6.50); Neutrophils % (auto) 74.8 %; Platelet Count 556 K/uL (130-400); RDW Coefficient of Variation 12.6 % (11.5-14.5); RDW Standard Deviation 39.9 fL (36.4-46.3); Red Blood Count 2.87 M/uL (4.70-6.10); White Blood Count 11.04 K/ul (4.8-10.8)
[2023-01-29 07:33] LABS: Albumin Globulin Ratio 0.7 (0.9-2); Albumin Level 2.6 gm/dl (3.4-5.0); BUN Creatinine Ratio 39.4 (10-20); Bilirubin,Total 0.2 mg/dl (0.2-1.0); Calcium 8.5 mg/dl (8.6-10.3); Est GFR (African American) 120.1 ml/min; Est GFR (Non-African American) 103.6 ml/min; Globulin 3.9 gm/dl (2.5-4.0); Potassium 4.4 mmol/L (3.5-5.1); Total Protein 6.5 gm/dl (6.0-8.3)
[2023-01-29 07:39] LABS: Prothrombin Time 11.2 Seconds (9.0-12.0)
--- NOTE | 2023-01-29 08:00 | Hospitalist Progress Note ---
Date of Service January 29, 2023 Assessment & Plan (1) Abscess of right foot: Plan: Recent admission 01/11 after nausea/vomiting/signs of infection at surgical site after being called w/ positive blood cultures for MSSA outpatient blood cultures Was admitted from 01/11 -- 01/19 and discharged on Ancef, but apparently was switched to Cefepime/Vanco at [facility] at some point and then changed back to Ancef on 01/22 with end date 01/24 CT imaging concerning for abscess: * Report: Again seen are extensive fractures throughout the tarsal and metatarsal bones as above. There is increasing bony fragmentation/displacement with erosive change throughout the mid foot as detailed above, with a large gas and fluid collection containing interdigitating around these bones along the plantar aspect of the midfoot. This is highly suspicious for infection, likely representing extensive osteomyelitis with a large multiloculated abscess. Dr Collier, podiatry on consult 01/23/23 - s/p I&D Right foot, debridement of right foot. Continue Vanco Cx +MRSA WBC remain around 11K, Afebrile Foot continues to look infected requiring surgical intervention for source control Final BCx No growth, Staph aureus Podiatry following, To remain NWB to RLE, PT/OT on consult Lovenox SQ for DVT prophylaxis for now -- podiatry held today for surgery ID to follow up today and note stated once source control achieved will be able to outline duration Per ortho note, there was a note from Gisele who asks for a second opinion prior to any amputation. Ortho wanted vascular to confirm nonviability of toes for second opinion prior to surgical care. Messaged Berta Calderon who stated their note clearly stated that patient's toes are necrotic. Dr Dailey also placed a communication report that from a vascular standpoint they also recommend amputation of the first and second toes. Patient to have amputation of 1st and 2nd toes, wound debridement of dorsalmidfoot wounds with application of wound vac today Patient interested in hyperbaric O2 treatments, discussed after surgery could help w/ wound healing but would not be appropriate to treat deeper infection (2) MSSA bacteremia: Plan: Was being treated with Cefepime and [facility] , per pharmacy switched to Ancef 01/22 ECHO last admit NEGATIVE for endocarditics Continue Vanco, dc Zosyn as above. WBC count stable at 11. ID consulted Final BCx no growth ID follow up note today stated once source control achieved will be able to outline duration (3) Thrombocytosis: Plan: Has been ongoing since last admission, initial workup had been negative Likely reactive due to his acute infection B12 low last month, will place on IM injections while inpatient consider reaching out to Dr Beavers if needed Also iron panel checked w/ ADOLFO, PO supplementation for now over IV given current infection/prevention dextrose containing IV given his blood sugars Improving w/ abx treatment Monitor CBC (4) Poorly controlled type 1 diabetes mellitus: Plan: A1c 8.6 Pharmacy consulted and their assistance appreciated for tighter control. Did have lows last admission and likely was not as aggressive due to such but good appetite reported and eating well/moving bowels and suggest tighter control w/ benefit Montior BSGs (5) Opioid abuse: Plan: Hx of such APAP/dilaudid d/c 1.5mg dilaudid dose, can use 1mg as needed, oxycodone 10mg and encouraged PO over IV Moving bowels, +BS on exam (per patient had a BM last night) Monitor for increased need for bowel regimen (6) Dyslipidemia: Plan: Chronic and stable Continue statin (7) Depression: Plan: Chronic/stable - continue sertraline daily which is continued, however some depression about need for amputation of his foot/toes vs BKA. No HI/SI at present. Monitor (8) GERD (gastroesophageal reflux disease): Plan: chronic/stable Continue protonix (9) Hypertension: Plan: Initially hypertensive with systolics in the 180s's, likely due to pain Is not on antihypertensive therapy outpatient BP elevations 2nd to pain, but stable and no headache/cp/sob/blurry vision or headache reported BP today 150/80 (10) Peripheral arterial disease: Plan: vascular consulted, minimal disease and no intervention. recommend amputation first and second toes (11) Anemia: Plan: hgb in 7s on admit has remained stable during inpatient stay, no active bleeding hgb 8.4, same as day prior and remains as such B12 low in December and placed on B12 IM while inpatient (day 4/5) and continued. Folate was 15 Iron panel checked w/ iron LOW 11, transferrin low 163, trans % sat 7%. Ferritin not significantly elevated Will hold off IV venofer and schedule daily PO supplementation for now. If bcx remain negative can consider giving some IV venofer over PO to prevent issues w/ constipation if they occur however he has been moving his bowels Monitor CBC Plan continued inpatient stay, on Vanco which should cover for +MRSA cultures Suspect he will need BKA or at least further surgical intervention on his foot for source control given ongoing infection and recently completed 6wks IV abx however prior cultures were just staph and now +for MRSA Having amputation first and second toes, wound debridement and wound vac placement today Admission and Anticipated Discharge Date Admission Date: January 23, 2023 Supervising Physician Co-Signing Physician Notes PA Supervision Note: I personally saw and examined the patient. I verified all martinez points and agree with MAC Cali with the following exceptions and/or additions: None, continue IV Abx with ultimate care of amputations per Podiatric Medicine. WBC count stable and ID onboard. Subjective Patient was seen this AM in rounds. He was awake and states he has no questions or complaints. Vascular placed a note stating that they recommend amputation of the first and second toes. They discussed this with patient's and she is now in agreement with the amputation of the toes and application of a wound vac. Review of Systems Review of Systems: Patient denies any chest pain, SOB, Dyspnea, cough or congestion. He denies any N/V or abdominal pain. He admits to pain right foot Physical Exam Constitutional: WD/WN, vitals as above Respiratory: normal respiratory effort, lungs clear to auscultation Cardiovascular: RRR, no murmur, no edema Extremities: no calf tenderness and no edema Gastrointestinal (Abdomen): normal bowel sounds, soft, nontender, no hepatosplenomegaly Musculoskeletal: dressing to right foot, first and second toes, purple/black in color, cool with no capillary refill, Neurologic: Left foot drop (baseline) Psychiatric: A+Ox3, euthymic affect appears mildly depressed and sad secondary to needing toe amputation Results & Data Results & Data Vital Signs (Past 12 Hours) Vital Signs Temp Pulse Pulse Resp BP Pulse Ox O2 Del Method 01/29/23 07:27 99 H 01/29/23 03:38 36.7 C 92 H 18 150/76 H 96 Room Air 01/28/23 23:18 109 H 01/28/23 22:23 37.1 C 98 H 18 165/75 H 98 Room Air Laboratory Results Abnormal lab results 01/28/23 01/29/23 01/29/23 Range/Units 19:50 06:29 06:29 WBC 11.04 H (4.8-10.8) K/ul RBC 2.87 L (4.70-6.10) M/uL Hgb 8.4 L (14.0-18.0) g/dl Hct 25.0 L (42.0-52.0) % Plt Count 556 H (130-400) K/uL MPV 9.0 L (9.4-12.4) fL Neut # (Auto) 8.26 H (1.40-6.50) K/uL [place] # (Auto) 0.99 H (0.11-0.59) K/uL Sodium 133 L (136-145) mmol/L BUN 26 H (6-23) mg/dl BUN/Creatinine Ratio 39.4 H (10-20) Glucose 269 H (70-99(Fasting)) mg/dl POC Glucose 157 H (70-99) mg/dl Calcium 8.5 L (8.6-10.3) mg/dl Alkaline Phosphatase 165 H (34-104) U/L Albumin 2.6 L (3.4-5.0) gm/dl Albumin/Globulin Ratio 0.7 L (0.9-2) 01/29/23 01/29/23 01/29/23 Range/Units 07:04 07:05 11:58 WBC (4.8-10.8) K/ul RBC (4.70-6.10) M/uL Hgb (14.0-18.0) g/dl Hct (42.0-52.0) % Plt Count (130-400) K/uL MPV (9.4-12.4) fL Neut # (Auto) (1.40-6.50) K/uL [place] # (Auto) (0.11-0.59) K/uL Sodium (136-145) mmol/L BUN (6-23) mg/dl BUN/Creatinine Ratio (10-20) Glucose (70-99(Fasting)) mg/dl POC Glucose 321 H* 296 H 104 H (70-99) mg/dl Calcium (8.6-10.3) mg/dl Alkaline Phosphatase (34-104) U/L Albumin (3.4-5.0) gm/dl Albumin/Globulin Ratio (0.9-2) PG Care Time/CCT Total # of Minutes Spent Total Time Spent with Patient: Total time spent is greater than 50% in coordination of care (as documented) at patient's floor/unit and/or counseling patient: Coding Level of Care Code 21579 SUB INP/OBS CARE 3/50MIN Diagnoses Abscess of right foot L02.611 MSSA bacteremia R78.81; B95.61 Thrombocytosis D75.839 Poorly controlled type 1 diabetes mellitus E10.65 Opioid abuse F11.10 Dyslipidemia E78.5 Depression F32.A GERD (gastroesophageal reflux disease) K21.9 Hypertension I10 Peripheral arterial disease I73.9 Anemia D64.9
--- NOTE | 2023-01-29 08:02 | Anesthesiology Consultation ---
Date of Service January 29, 2023 Assessment & Plan (1) Anemia: (2) Encounter for pre-operative examination: History Surgery Operation Date: 01/23/23 21:00 Proposed Procedures p Left Leg Washout(Left) - Baltazar Collier DPM, MS Operation Date: 01/29/23 10:30 Proposed Procedures p Right Foot Wound Debridement with Wound Vac Placement - Baltazar Collier DPM, MS Height/Weight Height: 6 ft 0.5 in Weight: 66.4 kg Allergies Allergy/AdvReac Type Severity Reaction Status Date / Time pantoprazole [From Protonix] AdvReac Vomiting Verified 01/11/23 16:16 Medications Home Medications Medication Instructions Recorded Confirmed Last Taken Medical Marijuana 1 dose inhalation DIRECTED PRN 02/06/22 01/23/23 08/24/22 NEEDED oxycodone 15 mg tablet 15 mg PO Q6H PRN Breakthrough Pain 02/09/22 01/23/23 Unknown pen needle,diabetic, disp unit 32 #100 ea 02/11/22 01/11/23 Unknown gauge x 1/4", remover and disposal unit aspirin 81 mg tablet,delayed 81 mg PO QPM 02/17/22 01/23/23 01/16/23 release esomeprazole magnesium 40 mg 40 mg PO QAM 02/17/22 01/23/23 01/23/23 capsule,delayed release (Nexium) oxycodone 15 mg tablet,crush 15 mg PO Q12 02/17/22 01/23/23 01/23/23 resistant,extended release 12 hr (OxyContin) sertraline 100 mg tablet 100 mg PO QAM 02/17/22 01/23/23 01/23/23 testosterone cypionate 200 mg/mL 200 mg IM WK 02/17/22 01/23/23 Unknown intramuscular oil Omnipod 5 G6 Intro Kit (Gen 5) #1 ea 12/07/22 01/11/23 Unknown subcutaneous cartridge with controller (insulin pump cart,auto,BT-cntr) Omnipod 5 G6 Pods (Gen 5) (insulin #10 ea 12/07/22 01/11/23 Unknown pump cart,automated,BT) atorvastatin 40 mg tablet 40 mg PO DAILY 12/22/22 01/23/23 Unknown acetaminophen 500 mg tablet 1,000 mg PO TID #90 tabs 01/19/23 01/23/23 Unknown (Tylenol Extra Strength) cefepime 1 gram solution for 1 g IM Q8H #15 ea 01/19/23 01/23/23 Unknown injection gabapentin 300 mg capsule 300 mg PO TID #90 caps 01/19/23 01/23/23 01/23/23 insulin aspart U-100 100 unit/mL 1 unit (0.01 mL) subcut 0730 #15 mL 01/19/23 01/23/23 01/23/23 (3 mL) subcutaneous pen insulin aspart U-100 100 unit/mL 1 unit (0.01 mL) subcut 01/19/23 01/23/23 01/23/23 (3 mL) subcutaneous pen 1130,1630,2100 #15 mL insulin glargine 100 unit/mL 20 unit (0.2 mL) subcut DAILY #10 01/19/23 01/23/23 01/23/23 subcutaneous solution (Lantus mL U-100 Insulin) polyethylene glycol 3350 17 gram 17 g PO BID #60 ea 01/19/23 01/23/23 01/23/23 oral powder packet (Miralax) sennosides 8.6 mg-docusate sodium 1 tab PO QAM #30 tabs 01/19/23 01/23/23 Unknown 50 mg tablet (Senokot-S) vancomycin 1.25 gram intravenous 1.25 g IV Q12H #10 ea 01/19/23 01/23/23 Unknown solution Active Medications Generic Name Dose Route Start Last Admin Trade Name Freq PRN Reason Stop Dose Admin Acetaminophen 650 mg 01/23/23 23:16 01/24/23 20:46 Acetaminophen 325 Mg Tab PO 02/22/23 23:15 650 mg Q4H PRN Administration Pain(1,2,3),headache, Or Fever Atorvastatin Calcium 40 mg 01/24/23 09:00 01/28/23 08:03 Atorvastatin 40 Mg Tab PO 02/23/23 08:59 40 mg DAILY TAMRA Administration Cyanocobalamin 1,000 mcg 01/25/23 13:15 01/28/23 08:03 Cyanocobalamin 1000 Mcg/Ml Vial IM 01/29/23 09:01 1,000 mcg QAM TAMRA Administration Enoxaparin Sodium 40 mg 01/26/23 17:00 01/28/23 16:52 Enoxaparin Inj 40 Mg/0.4 Ml Syr SQ 02/25/23 16:59 40 mg DAILY@1700 TAMRA Administration Famotidine 20 mg 01/26/23 21:00 01/28/23 19:35 Famotidine 20 Mg Tab PO 02/25/23 20:59 20 mg BID TAMRA Administration Ferrous Sulfate 325 mg 01/28/23 09:45 01/28/23 11:02 Ferrous Sulfate 325 Mg Tab PO 02/27/23 09:44 325 mg QAM TAMRA Administration Gabapentin 300 mg 01/23/23 23:16 01/28/23 19:35 Gabapentin 300 Mg Cap PO 02/22/23 23:15 300 mg TID TAMRA Administration Hydromorphone HCl 1 mg 01/27/23 14:03 01/29/23 06:28 Hydromorphone Inj 1 Mg/Ml Syringe IV 02/08/23 13:04 1 mg Q4H PRN Administration severe pain Vancomycin HCl 1,250 mg/ 275 mls @ 200 mls/hr 01/28/23 18:00 01/29/23 06:27 Sodium Chloride IV 03/11/23 17:59 200 mls/hr Q12H TAMRA Administration Protocol Insulin Glargine 23 units 01/28/23 09:00 01/28/23 08:04 Lantus Per Unit Charge SQ 02/27/23 08:59 23 units DAILY TAMRA Administration Melatonin 3 mg 01/24/23 20:56 01/26/23 21:04 Melatonin 3 Mg Tab PO 02/23/23 20:55 3 mg HS PRN Administration Sleep Oxycodone HCl 10 mg 01/25/23 13:03 01/29/23 00:09 Oxycodone Hcl Ir 5 Mg Tab (Immediate Release) PO 02/07/23 17:13 10 mg Q4H PRN Administration moderate pain Pantoprazole Sodium 40 mg 01/25/23 09:00 01/28/23 08:03 Pantoprazole 40 Mg Tab PO 02/24/23 08:59 40 mg QAM TAMRA Administration Polyethylene Glycol 17 gm 01/23/23 23:16 01/28/23 19:34 Polyethylene (Miralax) 17 Gm Pack PO 02/22/23 23:15 17 gm BID TAMRA Administration Senna/Docusate Sodium 1 tab 01/24/23 09:00 01/28/23 08:03 Docusate Sodium/Senna 50/8.6mg Tab PO 02/23/23 08:59 1 tab QAM TAMRA Administration Sertraline HCl 100 mg 01/24/23 09:00 01/28/23 08:03 Sertraline Hcl 100 Mg Tablet PO 02/23/23 08:59 100 mg QAM TAMRA Administration Sodium Hypochlorite 1 appln 01/26/23 08:30 01/26/23 10:11 Dakin's Soln 0.125% Quarter Strength 473 Ml Btl EXT 02/25/23 08:29 1 appln UD TAMRA Administration NPO Date Last Intake of Fluids: 01/23/23 Time Last Intake of Fluids: 12:00 Date Last Intake of Solids: 01/23/23 Time Last Intake of Solids: 12:00 Past Medical History Medical History (Updated 01/29/23 @ 08:01 by Tera Krishnan MD) GERD (gastroesophageal reflux disease) Glaucoma History of seizure last seizure "couple years ago" -- d/t hypoglycemia Hypertension Infection of right foot Memory deficit Osteoarthritis Poorly controlled type 1 diabetes mellitus Past Family History Family History Other No family history of adverse response to anesthesia Past Surgical History Surgical History History of appendectomy History of knee surgery Rt History of tonsillectomy Social History Smoking Status: Never smoker Do You Dip or Chew Tobacco: No Hx Alcohol Use: Yes Alcohol type: beer alcohol intake frequency: holidays/special occasions only Hx Substance Use: Yes substance use type: marijuana and painkillers Substance Use Type Other:: medical Last Used Substance: Unknown Last Used Substance Other:: months ago Physical Exam Vital Signs Last Vital Signs Temp 36.7 C 01/29/23 03:38 Pulse 99 H 01/29/23 07:27 Resp 18 01/29/23 03:38 BP 150/76 H 01/29/23 03:38 Pulse Ox 96 01/29/23 03:38 O2 Del Method Room Air 01/29/23 03:38 O2 Flow Rate 5 01/23/23 21:51 Testing Laboratory Results 01/29/23 06:29 01/29/23 06:29 PT 11.2 Seconds (9.0-12.0) 01/29/23 06:29 INR 1.0 (0.9-1.1) 01/29/23 06:29 Urine Color Yellow 01/23/23 Unknown Urine Appearance Clear (Clear) 01/23/23 Unknown Urine pH 7.0 (4.5-7.5) 01/23/23 Unknown Ur Specific [place] 1.014 (1.000-1.030) 01/23/23 Unknown Urine Protein 1+ (Negative) H 01/23/23 Unknown Urine Glucose (UA) Negative (Negative) 01/23/23 Unknown Urine Ketones Negative (Negative) 01/23/23 Unknown Urine Nitrite Negative (Negative) 01/23/23 Unknown Ur Leukocyte Esterase Negative (Negative) 01/23/23 Unknown Urine WBC (Auto) 1-5 /hpf (0-5) 01/23/23 Unknown Urine RBC (Auto) 5-10 /hpf (0-4) H 01/23/23 Unknown U Hyaline Cast (Auto) 0 /lpf (0-5) 01/23/23 Unknown U Epithel Cells (Auto) 0-5 /lpf (0-5) 01/23/23 Unknown Urine Bacteria (Auto) Negative (Negative) 01/23/23 Unknown 01/23/23 15:45 Aerobic Blood Culture - Final Blood No growth in Aerobic bottle after 5 days. Anaerobic Blood Culture - Final 01/23/23 13:05 Aerobic Blood Culture - Final Blood No growth in Aerobic bottle after 5 days. Anaerobic Blood Culture - Final No growth in Anaerobic bottle after 5 days. 01/23/23 Unknown Gram Stain - Final Foot,Right Aerobic and Anaerobic Culture - Final Staph aureus MRSA 01/23/23 15:05 Gram Stain - Final Foot Aerobic and Anaerobic Culture - Final Staph aureus MRSA 01/29/23 01/29/23 07:05 07:04 POC Glucose 296 H 321 H* Electrocardiogram Findings: + ST @ (100) and + MA (old anterior)
[2023-01-29] MEDS: INSULIN ASPART PER UNIT CHARGE SC SCH ×4 (08:12→21:46)
[2023-01-29] MEDS: LANTUS PER UNIT CHARGE SQ SCH (08:13)
--- NOTE | 2023-01-29 09:36 | Communication Note ---
Date of Service: January 29, 2023 We recommend amputation of first and second toes. This was discussed with the patient's and she is in total agreement with the amputation of the toes and application of wound VAC.
[2023-01-29] MEDS: FERROUS SULFATE 325 MG TAB PO SCH (09:43)
[2023-01-29] MEDS: PANTOprazole 40 MG TAB PO SCH (09:43)
[2023-01-29] MEDS: SERTRALINE HCL 100 MG TABLET PO SCH (09:43)
[2023-01-29] MEDS: POLYETHYLENE (MIRALAX) 17 GM PACK PO SCH ×2 (09:43→21:37)
[2023-01-29] MEDS: FAMOTIDINE 20 MG TAB PO SCH ×2 (09:43→21:37)
[2023-01-29] MEDS: ATORVASTATIN 40 MG TAB PO SCH (09:43)
[2023-01-29] MEDS: DOCUSATE SODIUM/SENNA 50/8.6MG TAB PO SCH (09:43)
[2023-01-29] MEDS: GABAPENTIN 300 MG CAP PO SCH ×3 (09:43→21:36)
[2023-01-29] MEDS: CYANOCOBALAMIN 1000 MCG/ML VIAL IM SCH (09:44)
--- NOTE | 2023-01-29 12:57 | Infectious Disease Progress Nt ---
Date of Service January 29, 2023 Assessment & Plan (1) Peripheral arterial disease: Plan #R foot infection s/p exfix removal, prior abscess #History of MSSA bacteremia #PVD #poorly controlled DM 61 yo M poorly controlled DM I, HTN, hyperlipidemia, memory deficit, chronic pain with opioid abuse, R Charcot arthropathy and R foot lisfranc deformity s/p repair, closed reduction, application of external fixation, and tendon Achilles lengthening (12/25/22) who presents with MSSA foot infection c/b MSSA bacteremia. He had been discharged to SNF on 12/27 and was noncompliant with NWB on R foot,and signed himself out AMA on 01/05. While at home, he has had multiple falls due to ambulatory dysfunction with his ex fix. Admitted with MSSA bacteremia from R foot. TTE negative for vegetation. 01/09 Bcx x 2 MSSA 10/28 bottles, cleared 01/11 and 01/12. 01/09 Wound culture: MSSA (S clinda, TMP/SMX, tetra), 01/17 R foot wound culture: MSSA, He was treated with Cefazolin with plans to extend beyond 2 weeks. However represented on 01/23 with worsening foot infection. He went to OR on 01/23 for Removal of Right Lower Extremity External Fixator. Patient currently on IV vancomycin and zosyn with current plans for likely partial amputation and evaluation by vascular team DM1, HTN, HLD, memory deficit, chronic pain on opioids, R Charcot arthropathy and R foot lisfranc deformity s/p repair, closed reduction, application of external fixation, and tendon Achilles lengthening (12/25/22) who presents with MSSA foot infection c/b MSSA bacteremia. He had been discharged to SNF on 12/27 and was noncompliant with NWB on R foot,and signed himself out AMA on 01/05. While at home, he has had multiple falls due to ambulatory dysfunction with his ex fix. Discussion: Patient with ongoing infection leading to prior bacteremia, now culture is growing MRSA (superificial), Prior growth of MSSA Recommend C/W vancomycin, pharmacy to follow levels Once source control achieved will be able to outline duration Follow OR results today, please send for post debridement cultures and to pathology I spoke with primary team this morning. Stefanie Doe MD Admission and Anticipated Discharge Date Admission Date: January 23, 2023 Subjective This patient recommendation is based on a telemedicine consult request which was completed asynchronously through chart review and information provided by the primary physician. The patient was not seen or examined today. The evaluation is consultative in nature and all patient care and treatment decisions can either be accepted or rejected by the patient's primary hospital-based treating physician using their own independent medical judgment for their patient. Time Spent Reviewing Chart: 21 - 30 minutes Results & Data Vital Signs (Past 12 Hours) Vital Signs Temp Pulse Pulse Pulse Resp BP Pulse Ox 01/29/23 11:42 36.8 C 91 H 18 150/80 H 99 01/29/23 08:01 36.6 C 99 H 18 152/80 H 97 01/29/23 07:27 99 H 01/29/23 03:38 36.7 C 92 H 18 150/76 H 96 O2 Del Method 01/29/23 11:42 Room Air 01/29/23 08:01 Room Air 01/29/23 07:27 01/29/23 03:38 Room Air
--- NOTE | 2023-01-29 14:45 | Pharmacy Report ---
Pharmacy Glycemic Short Note 2 - Date of Service January 29, 2023 - Glycemic Short BSG Results (Last 24 hours): 01/28/23 01/28/23 01/29/23 16:09 19:50 06:29 Glucose 269 H POC Glucose 87 157 H 01/29/23 01/29/23 01/29/23 07:04 07:05 11:58 Glucose POC Glucose 321 H* 296 H 104 H 01/29/23 01/29/23 01/29/23 14:09 14:10 14:11 Glucose POC Glucose 68 L* 69 L* 72 OUTPATIENT ANTIDIABETIC REGIMEN: * Per most recent endocrinology note/tobacco prevention health educator note from past admission in December 2022 * Lantus 25 units SC qAM * Novolog 5-6 units SC TID w/ meals (patient reports missing these doses often) * Plan appears to be for patient to transition to insulin pump * HbA1c: 9.4% (12/22/22) ASSESSMENT: 01/29/23 * Patient received total of 53 units of insulin yesterday, of which 23 units w ere basal insulin * Fasting BSG 296 mg/dL - will continue with 23 units of basal for this AM. Patient NPO this morning for OR (R foot debridement/wound vac) * Lunch BSG trending down, BSG low this afternoon at 68 mg/dL - given 1/2 amp dextrose * Patient has not yet gone to OR today, unsure what time he will be going this afternoon/evening * I did notify provider of lower BSG this afternoon and recommended adding on some dextrose fluids if BSGs trend down this evening 01/28/23 * BSGs yesterday were [phone] mg/dL. Patient received 49 units of insulin (22 units of basal and 27 units of bolus). * Fasting today is 249 mg/dL. * Fasting is trending down but still elevated. It appears patient requires roughly 50 units of insulin per day? So will increase basal to 23 units today with expectation that patient may truly require 24-25 units/day (home dose is 25 units) * For Novolog, continue tighter scale at breakfast. Tighten CR for the rest of the day. Patient's HS BSG check is always elevated so patient most likely requires more carbohydrate coverage at dinner. 01/26/23: * BSGs elevated yesterday, ranging 189-299 mg/dL * Received 20 units of basal and 30 units of Novolog * Will increase Lantus to 22 units today and tighten breakfast Novolog further * May require tightening of Novolog at lunch, dinner, HS, but will hold off one more day as prior lows were observed last admission w/ tighter coverage * Tighten goal range to 110-140 mg/dL today 01/24/23: * is a 62 year old male known to pharmacy glycemic consult from recent prior admission last week * Readmitted for worsening right foot infection w/ abscess/osteomyelitis * BSGs extremely labile last admission w/ frequent episodes of hyper/hypoglycemia * Pharmacy consulted at lunchtime for BSG > 400 mg/dL * Prior to consult, patient received 5 units of Lantus. Will give additional 15 units to equal 20 units for the day, which was reasonable last admission. * Will utilize parameters similar to last admission to start PLAN FOR INPATIENT GLYCEMIC CONTROL: * Basal insulin * Lantus 23 units SC daily * Bolus insulin * NovoLog per scale ACHS or Q6hrs while NPO * Goal Range: Low 110 mg/dL - High 140 mg/dL * Correction Factor: 30 mg/dL/unit at breakfast and 45 mg/dL/unit at lunch, dinner, and HS * Nutritional / Prandial insulin per carb ratio of 1 unit per 7 grams CHO co nsumed at breakfast and 20 grams CHO consumed at lunch, dinner, HS
[2023-01-29] MEDS ORDERED: PROPOFOL IV EMULSION 10 MG/ML 20 ML VIAL IV ONE (16:15)
[2023-01-29] MEDS ORDERED: fentaNYL citrate PF 100 MCG/2 ML VIAL ONE (16:15)
[2023-01-29] MEDS ORDERED: LIDOCAINE 2% 2 ML VIAL/AMP(20MG/ML) INFIL ONE (16:15)
[2023-01-29] MEDS ORDERED: PROMETHAZINE HCL 6.25 MG in SODIUM CHLORIDE 0.9% 50 ML IV PRN (16:43)
[2023-01-29] MEDS ORDERED: ePHEDrine sulfate 50 MG/ML AMP IV PRN (16:43)
[2023-01-29] MEDS ORDERED: ATROPINE SULFATE 0.1 MG/ML 10ML SYR IV PRN (16:43)
[2023-01-29] MEDS ORDERED: ONDANSETRON INJ 2 MG/ML 2 ML VIAL IV PRN (16:43)
[2023-01-29] MEDS ORDERED: BUPIVACAINE 0.5 % 5 MG/1 ML MPF 30ML VIAL ONE (16:44)
[2023-01-29] MEDS ORDERED: MIDAZOLAM HCL 1 MG/ML 2ML VIAL ONE (16:46)
[2023-01-29] MEDS ORDERED: ONDANSETRON INJ 2 MG/ML 2 ML VIAL ONE (16:46)
--- NOTE | 2023-01-29 17:28 | History & Physical Bridge Note ---
Date of Service January 29, 2023 History & Physical Bridge Note I have examined the patient, reviewed the History & Physical and in the interval since the performance of the History & Physical I have noted the following changes of clinical significance: no changes noted
[2023-01-29] MEDS ORDERED: PHENYLEPHRINE 100MCG/ML 5ML SYR ONE (17:51)
[2023-01-29] MEDS ORDERED: DEXAMETHASONE SOD INJ 4 MG/ML VIAL ONE (18:01)
[2023-01-29] MEDS ORDERED: PHENYLEPHRINE HCL 10 MG/ML VIAL ONE (18:26)
--- NOTE | 2023-01-29 19:00 | Post Operative Brief Note ---
Immediate Post Op Note v1 Date of Surgery January 29, 2023 Pre & Post Diagnosis Operation Date: 01/29/23 10:30 Pre-Op Diagnosis: WORSENING FOOT INFECTION Post-Op Diagnosis: WORSENING FOOT INFECTION I identified the patient and participated in the time-out.: Yes Procedure Operation Date: 01/29/23 10:30 Actual Procedures p Right Foot Wound Debridement with Wound Vac Placement(Right) - Baltazar Collier DPM, MS Surgeon Baltazar Collier DPM, MS Shelter Advocate none Estimated Blood Loss 5 Findings Consistent with Post-Op Diagnosis Right foot necrosis
[2023-01-29] MEDS: fentaNYL citrate PF 100 MCG/2 ML VIAL IV PRN ×4 (19:17→19:30)
[2023-01-29] MEDS ORDERED: KETOROLAC 30 MG/ML VIAL ONE (19:40)
[2023-01-29] MEDS ORDERED: ACETAMINOPHEN 1000 MG/100 ML IV IV ONE (19:40)
[2023-01-29] MEDS ORDERED: KETOROLAC 30 MG/ML VIAL IV ONE (19:40)
[2023-01-29] MEDS ORDERED: ACETAMINOPHEN 1,000 MG/100 ML VIAL IV STA (19:42)
--- NOTE | 2023-01-29 19:55 | Anesthesiology Progress Note ---
Date of Service January 29, 2023 Anesthesia Post Procedure Vital Signs Vital Signs: Temp Pulse Pulse Pulse Resp BP Pulse Ox 01/29/23 19:50 119 H 16 144/77 H 97 01/29/23 19:40 121 H 14 135/84 97 01/29/23 19:30 121 H 16 150/80 H 99 01/29/23 19:20 36.9 C 118 H 14 170/88 H 100 01/29/23 19:10 36.9 C 123 H 20 163/78 H 100 01/29/23 15:00 92 H 01/29/23 16:38 37.0 C 95 H 14 173/88 H 98 01/29/23 15:54 37.3 C 98 H 18 153/79 H 97 01/29/23 11:42 36.8 C 91 H 18 150/80 H 99 01/29/23 08:01 36.6 C 99 H 18 152/80 H 97 01/29/23 07:27 99 H 01/29/23 03:38 36.7 C 92 H 18 150/76 H 96 01/28/23 23:18 109 H 01/28/23 22:23 37.1 C 98 H 18 165/75 H 98 O2 Del Method O2 Flow Rate 01/29/23 19:50 Room Air 01/29/23 19:40 Room Air 01/29/23 19:30 Oxymask 4 01/29/23 19:20 Oxymask 6 01/29/23 19:10 Oxymask 6 01/29/23 15:00 01/29/23 16:38 Room Air 01/29/23 15:54 Room Air 01/29/23 11:42 Room Air 01/29/23 08:01 Room Air 01/29/23 07:27 01/29/23 03:38 Room Air 01/28/23 23:18 01/28/23 22:23 Room Air Pain Intensity Right Foot: Pain Intensity: 10 Transfer of Care Handoff Completed per policy Notes Mental Status: alert / awake / arousable and participated in evaluation Patient Amnestic to Procedure: Yes Nausea / Vomiting: adequately controlled Pain: improving with treatment Airway Patency, RR, SpO2: stable & adequate BP & HR: stable & adequate Hydration State: stable & adequate Anesthetic Complications: no major complications apparent and Pt Satisfied with anesthetic care
[2023-01-29] MEDS: HYDROmorphone INJ 0.5 MG/0.5 ML SYR IV PRN ×2 (20:25→20:30)
[2023-01-29] MEDS ORDERED: KETOROLAC TROMETHAMINE 15 MG/ML VIAL IV PRN (20:34)
[2023-01-29] MEDS ORDERED: HYDROmorphone INJ 0.5 MG/0.5 ML SYR IV PRN (20:34)
[2023-01-29] MEDS: ENOXAPARIN INJ 40 MG/0.4 ML SYR SQ SCH (21:13)
--- NOTE | 2023-01-29 21:17 | Operative Report ---
Post Operative Report Pre & Post Diagnosis Operation Date: 01/29/23 10:30 Pre-Op Diagnosis: WORSENING FOOT INFECTION Post-Op Diagnosis: WORSENING FOOT INFECTION I identified the patient and participated in the time-out.: Yes Procedure Operation Date: 01/29/23 10:30 Actual Procedures p right 1st and 2nd toe amputation, Wound Vac Placement(Right) - Baltazar Collier DPM, MS Surgeon Baltazar Collier DPM, MS Senior Programmer none Estimated Blood Loss 10 Findings Consistent with Post-Op Diagnosis Necrotic first and second rays of right foot. Specimens First and second toes / ray of right foot. Drains None Description of Procedure History of present illness: Patient is a type I diabetic, 62 year old male who is seen for treatment of diabetic foot wounds and necrotic right first ray and second toe. Patient relates minimal discomfort while at bedside. I discussed procedure including removal of nonviable bone and tissue including first and second toe amputations and application of wound vac negative pressure therapy. All questions answered. Discussed procedure in detail and postoperative recovery. All potential risks, benefits, complications, alternatives, rehab, potential for incomplete relief of symptoms, need for further surgery, DVT, PE, , persistent pain, swelling, scarring, weakness, neurovascular, wound complications and potential for amputations were discussed with patient. Unwanted outcomes such as, but not limited to were reviewed including under correction, overcorrection, return of deformity, infection. All questions were answered. Patient has decided to proceed with procedure as indicated. Preoperative diagnosis: 1.) Right diabetic foot infection 2.) Right foot necrosis Postoperative diagnosis: same Name of operation: 1.) Right foot wound debridement 2.) Right foot first and second toe amputation 3.) Application of negative pressure Wound Vac therapy Right foot Surgeon Dr. Collier Senior Programmer: None Anesthesia: local with monitored anesthesia care Hemostasis: pneumatic ankle tourniquet Estimated blood loss: minimal Procedure in detail: Under mild sedation the patient was brought in the operating room placed on the operating table in supine position. A pneumatic ankle tourniquet was then placed about the patient's right ankle. Following IV sedation the foot was then prepped scrubbed and draped in usual aseptic manner. An Esmarch bandage was utilized to exsanguinate the patient's right foot and the pneumatic ankle tourniquet was then inflated. Attention was then directed to nonhealing diabetic ulcers on the dorsal and medial aspect of the right midfoot. Wounds show necrotic base and extend to eschar then necrotic first and second toes. Utilizing a sharp, sterile, #15 blade an incision is placed encompassing the first ray and second toe. The incision which was deepened through subcutaneous tissue using sharp blunt dissection. Care was taken to identify and retract all vital neurovascular structures. All bleeders were ligated and cauterized necessary. At this time the right second toe was removed at the level of the metatarsal phalangeal joint and placed on the back table. The distal portion of the right second toe was sent to pathology. Due to necrosis of soft tissue extending to along the first ray the first toe amputation wound need to include the first metatarsal. Utilizing an oscillating bone saw the an osteotomy was created in the metatarsal shaft and the first ray was removed and placed on the back table. The right first ray was sent to pathology. At this time the diabetic foot wounds at the midfoot were sharply debrided with out incident down to muscle and tendon. A versajet was also utilized.1 L of lactated Ringer was then used to irrigate with low flow into the wounds.At this time negative pressure therapy was applied with wound vac to the proximal lateral diabetic foot wound. The vac was placed on 125mmHg continuous. The wounds were dressed with compressive dressing consisting of 4 x 4's Shawanda Kerlix ABD, and Norm. The pneumatic calf tourniquet was deflated and a prompt hyperemic response was noted to remaining digits of the right foot. The Patient tolerated the procedure and anesthesia well. He was transferred to recovery room vital signs stable and vascular status intact all toes of the right foot following. Following a period of postoperative monitoring the pat ient will be readmitted to floor with the continuation of all preoperative orders. I attest to the content of the Intraoperative Record and any orders documented therein. Any exceptions are noted below.
[2023-01-29 23:23] LABS: Hematocrit (blood only) 28.2 % (42.0-52.0); Hemoglobin 9.1 g/dl (14.0-18.0)
[2023-01-30] MEDS: HYDROmorphone INJ 0.5 MG/0.5 ML SYR IV PRN ×6 (01:45→22:20)
[2023-01-30] MEDS ORDERED: INSULIN ASPART PER UNIT CHARGE SC SCH (02:00)
[2023-01-30] MEDS ORDERED: INSULIN, Rapid-Acting PUMP ONE (04:24)
[2023-01-30] MEDS ORDERED: Nursing to Pharmacy Communication SCH (04:30)
[2023-01-30] MEDS ORDERED: INSULIN ASPART PER UNIT CHARGE SC STA (04:52)
[2023-01-30] MEDS ORDERED: VANCOMYCIN LEVEL ONE (05:30)
[2023-01-30 06:12] LABS: Basophils # (auto) 0.05 K/uL (0-0.2); Basophils % (auto) 0.4 %; Hematocrit (blood only) 23.2 % (42.0-52.0); Hemoglobin 7.5 g/dl (14.0-18.0); Immature Granulocytes # (auto) 0.07 K/uL (0.01-0.20); Immature Granulocytes % (auto) 0.6 %; Lymphocytes # (auto) 0.57 K/uL (1.2-3.4); Lymphocytes % (auto) 4.8 %; Mean Corpuscular Hemoglobin 28.8 pg (25.0-34.0); Mean Corpuscular Hgb Conc 32.3 g/dL (32.0-36.0); Mean Corpuscular Volume 89.2 fL (80.0-100.0); Mean Platelet Volume 9.1 fL (9.4-12.4); Neutrophils % (auto) 89.2 %; Platelet Count 598 K/uL (130-400); RDW Coefficient of Variation 12.7 % (11.5-14.5); RDW Standard Deviation 40.9 fL (36.4-46.3); White Blood Count 11.89 K/ul (4.8-10.8)
[2023-01-30 06:33] LABS: Albumin Globulin Ratio 0.7 (0.9-2); Albumin Level 2.6 gm/dl (3.4-5.0); BUN Creatinine Ratio 36.5 (10-20); Bilirubin,Total 0.2 mg/dl (0.2-1.0); Calcium 8.2 mg/dl (8.6-10.3); Creatinine Clr Calc Pharmacy 76.4 ml/min; Est GFR (African American) 97.8 ml/min; Est GFR (Non-African American) 84.4 ml/min; Globulin 3.9 gm/dl (2.5-4.0); Potassium 4.2 mmol/L (3.5-5.1); Prothrombin Time 11.1 Seconds (9.0-12.0); Total Protein 6.5 gm/dl (6.0-8.3)
[2023-01-30 06:35] LABS: RBC Morphology Unremarkable
--- NOTE | 2023-01-30 07:44 | Infectious Disease Progress Nt ---
Date of Service January 30, 2023 Assessment & Plan (1) Peripheral arterial disease: Plan #R foot infection s/p exfix removal, prior abscess #History of MSSA bacteremia #PVD #poorly controlled DM 61 yo M poorly controlled DM I, HTN, hyperlipidemia, memory deficit, chronic pain with opioid abuse, R Charcot arthropathy and R foot lisfranc deformity s/p repair, closed reduction, application of external fixation, and tendon Achilles lengthening (12/25/22) who presents with MSSA foot infection c/b MSSA bacteremia. He had been discharged to SNF on 12/27 and was noncompliant with NWB on R foot,and signed himself out AMA on 01/05. While at home, he has had multiple falls due to ambulatory dysfunction with his ex fix. Admitted with MSSA bacteremia from R foot. TTE negative for vegetation. 01/09 Bcx x 2 MSSA 10/28 bottles, cleared 01/11 and 01/12. 01/09 Wound culture: MSSA (S clinda, TMP/SMX, tetra), 01/17 R foot wound culture: MSSA, He was treated with Cefazolin with plans to extend beyond 2 weeks. However represented on 01/23 with worsening foot infection. He went to OR on 01/23 for Removal of Right Lower Extremity External Fixator. Patient currently on IV vancomycin and zosyn with current plans for likely partial amputation and evaluation by vascular team DM1, HTN, HLD, memory deficit, chronic pain on opioids, R Charcot arthropathy and R foot lisfranc deformity s/p repair, closed reduction, application of external fixation, and tendon Achilles lengthening (12/25/22) who presents with MSSA foot infection c/b MSSA bacteremia. He had been discharged to SNF on 12/27 and was noncompliant with NWB on R foot,and signed himself out AMA on 01/05. While at home, he has had multiple falls due to ambulatory dysfunction with his ex fix. Superficial wound cultures are growing MRSA. 01/29 OR Right foot first and second toe amputation Discussion: Patient with ongoing infection leading to prior bacteremia, now culture is growing MRSA (superficial), Prior growth of MSSA. Sp OR Recommend C/W vancomycin, pharmacy to follow levels Will see if cultures sent, did not see any this am. I spoke with primary team Stefanie Doe MD Admission and Anticipated Discharge Date Admission Date: January 23, 2023 Subjective This patient recommendation is based on a telemedicine consult request which was completed asynchronously through chart review and information provided by the primary physician. The patient was not seen or examined today. The evaluation is consultative in nature and all patient care and treatment decisions can either be accepted or rejected by the patient's primary hospital-based treating physician using their own independent medical judgment for their patient. Time Spent Reviewing Chart: 21 - 30 minutes 24 hours: POD #1 s/p Right foot first and second toe amputation Results & Data Vital Signs (Past 12 Hours) Vital Signs Temp Pulse Pulse Pulse Resp BP Pulse Ox 01/30/23 07:33 36.7 C 114 H 18 137/72 99 01/30/23 03:06 36.8 C 111 H 18 125/69 96 01/30/23 02:31 112 H 01/29/23 23:00 134 H 01/29/23 22:41 37.0 C 132 H 16 139/74 95 01/29/23 22:00 128 H 01/29/23 21:54 139 H 16 157/85 H 96 01/29/23 21:00 139 H 16 141/69 H 96 01/29/23 20:50 37.0 C 123 H 14 140/78 98 01/29/23 20:40 37.1 C 124 H 16 138/81 96 01/29/23 20:30 37.0 C 126 H 14 157/75 H 93 01/29/23 20:20 128 H 20 150/79 H 97 01/29/23 20:10 36.7 C 127 H 16 153/82 H 96 01/29/23 20:00 123 H 16 149/79 H 94 01/29/23 19:50 119 H 16 144/77 H 97 O2 Del Method 01/30/23 07:33 Room Air 01/30/23 03:06 Room Air 01/30/23 02:31 01/29/23 23:00 01/29/23 22:41 Room Air 01/29/23 22:00 01/29/23 21:54 Room Air 01/29/23 21:00 Room Air 01/29/23 20:50 Room Air 01/29/23 20:40 Room Air 01/29/23 20:30 Room Air 01/29/23 20:20 Room Air 01/29/23 20:10 Room Air 01/29/23 20:00 Room Air 01/29/23 19:50 Room Air Laboratory Results Laboratory Results - last 48 hr 01/28/23 01/28/23 01/28/23 07:45 11:36 16:09 WBC RBC Hgb Hct MCV MCH MCHC RDW Std Deviation RDW Coeff of Denise Plt Count MPV Immature Gran % (Auto) Neut % (Auto) Lymph % (Auto) Potter % (Auto) Eos % (Auto) Baso % (Auto) Neut # (Auto) Lymph # (Auto) Potter # (Auto) Eos # (Auto) Baso # (Auto) Immature Gran # (Auto) RBC Morphology PT INR Sodium Potassium Chloride Carbon Dioxide Anion Gap BUN Creatinine Est Cr Clr Drug Dosing Est GFR ( Amer) Est GFR (Non-Af Amer) BUN/Creatinine Ratio Glucose POC Glucose 249 H 235 H 87 Calcium Total Bilirubin AST ALT Alkaline Phosphatase Total Protein Albumin Globulin Albumin/Globulin Ratio Random Vancomycin 01/28/23 01/29/23 01/29/23 19:50 06:29 06:29 WBC 11.04 H RBC 2.87 L Hgb 8.4 L Hct 25.0 L MCV 87.1 MCH 29.3 MCHC 33.6 RDW Std Deviation 39.9 RDW Coeff of Denise 12.6 Plt Count 556 H MPV 9.0 L Immature Gran % (Auto) 0.5 Neut % (Auto) 74.8 Lymph % (Auto) 12.6 Potter % (Auto) 9.0 Eos % (Auto) 2.6 Baso % (Auto) 0.5 Neut # (Auto) 8.26 H Lymph # (Auto) 1.39 Potter # (Auto) 0.99 H Eos # (Auto) 0.29 Baso # (Auto) 0.06 Immature Gran # (Auto) 0.05 RBC Morphology PT 11.2 INR 1.0 Sodium Potassium Chloride Carbon Dioxide Anion Gap BUN Creatinine Est Cr Clr Drug Dosing Est GFR ( Amer) Est GFR (Non-Af Amer) BUN/Creatinine Ratio Glucose POC Glucose 157 H Calcium Total Bilirubin AST ALT Alkaline Phosphatase Total Protein Albumin Globulin Albumin/Globulin Ratio Random Vancomycin 01/29/23 01/29/23 01/29/23 06:29 07:04 07:05 WBC RBC Hgb Hct MCV MCH MCHC RDW Std Deviation RDW Coeff of Denise Plt Count MPV Immature Gran % (Auto) Neut % (Auto) Lymph % (Auto) Potter % (Auto) Eos % (Auto) Baso % (Auto) Neut # (Auto) Lymph # (Auto) Potter # (Auto) Eos # (Auto) Baso # (Auto) Immature Gran # (Auto) RBC Morphology PT INR Sodium 133 L Potassium 4.4 Chloride 100 Carbon Dioxide 29 Anion Gap 4 BUN 26 H Creatinine 0.66 Est Cr Clr Drug Dosing 109.0 Est GFR ( Amer) 120.1 Est GFR (Non-Af Amer) 103.6 BUN/Creatinine Ratio 39.4 H Glucose 269 H POC Glucose 321 H* 296 H Calcium 8.5 L Total Bilirubin 0.2 AST 17 ALT 24 Alkaline Phosphatase 165 H Total Protein 6.5 Albumin 2.6 L Globulin 3.9 Albumin/Globulin Ratio 0.7 L Random Vancomycin 01/29/23 01/29/23 01/29/23 11:58 14:09 14:10 WBC RBC Hgb Hct MCV MCH MCHC RDW Std Deviation RDW Coeff of Denise Plt Count MPV Immature Gran % (Auto) Neut % (Auto) Lymph % (Auto) Potter % (Auto) Eos % (Auto) Baso % (Auto) Neut # (Auto) Lymph # (Auto) Potter # (Auto) Eos # (Auto) Baso # (Auto) Immature Gran # (Auto) RBC Morphology PT INR Sodium Potassium Chloride Carbon Dioxide Anion Gap BUN Creatinine Est Cr Clr Drug Dosing Est GFR ( Amer) Est GFR (Non-Af Amer) BUN/Creatinine Ratio Glucose POC Glucose 104 H 68 L* 69 L* Calcium Total Bilirubin AST ALT Alkaline Phosphatase Total Protein Albumin Globulin Albumin/Globulin Ratio Random Vancomycin 01/29/23 01/29/23 01/29/23 14:11 14:43 16:50 WBC RBC Hgb Hct MCV MCH MCHC RDW Std Deviation RDW Coeff of Denise Plt Count MPV Immature Gran % (Auto) Neut % (Auto) Lymph % (Auto) Potter % (Auto) Eos % (Auto) Baso % (Auto) Neut # (Auto) Lymph # (Auto) Potter # (Auto) Eos # (Auto) Baso # (Auto) Immature Gran # (Auto) RBC Morphology PT INR Sodium Potassium Chloride Carbon Dioxide Anion Gap BUN Creatinine Est Cr Clr Drug Dosing Est GFR ( Amer) Est GFR (Non-Af Amer) BUN/Creatinine Ratio Glucose POC Glucose 72 127 H 93 Calcium Total Bilirubin AST ALT Alkaline Phosphatase Total Protein Albumin Globulin Albumin/Globulin Ratio Random Vancomycin 01/29/23 01/29/23 01/29/23 17:30 19:14 21:13 WBC RBC Hgb Hct MCV MCH MCHC RDW Std Deviation RDW Coeff of Denise Plt Count MPV Immature Gran % (Auto) Neut % (Auto) Lymph % (Auto) Potter % (Auto) Eos % (Auto) Baso % (Auto) Neut # (Auto) Lymph # (Auto) Potter # (Auto) Eos # (Auto) Baso # (Auto) Immature Gran # (Auto) RBC Morphology PT INR Sodium Potassium Chloride Carbon Dioxide Anion Gap BUN Creatinine Est Cr Clr Drug Dosing Est GFR ( Amer) Est GFR (Non-Af Amer) BUN/Creatinine Ratio Glucose POC Glucose 77 128 H 184 H Calcium Total Bilirubin AST ALT Alkaline Phosphatase Total Protein Albumin Globulin Albumin/Globulin Ratio Random Vancomycin 01/29/23 01/30/23 01/30/23 22:31 01:49 01:51 WBC RBC Hgb 9.1 L Hct 28.2 L MCV MCH MCHC RDW Std Deviation RDW Coeff of Denise Plt Count MPV Immature Gran % (Auto) Neut % (Auto) Lymph % (Auto) Potter % (Auto) Eos % (Auto) Baso % (Auto) Neut # (Auto) Lymph # (Auto) Potter # (Auto) Eos # (Auto) Baso # (Auto) Immature Gran # (Auto) RBC Morphology PT INR Sodium Potassium Chloride Carbon Dioxide Anion Gap BUN Creatinine Est Cr Clr Drug Dosing Est GFR ( Amer) Est GFR (Non-Af Amer) BUN/Creatinine Ratio Glucose POC Glucose 415 H* 406 H* Calcium Total Bilirubin AST ALT Alkaline Phosphatase Total Protein Albumin Globulin Albumin/Globulin Ratio Random Vancomycin 01/30/23 01/30/23 01/30/23 03:45 03:49 03:52 WBC RBC Hgb Hct MCV MCH MCHC RDW Std Deviation RDW Coeff of Denise Plt Count MPV Immature Gran % (Auto) Neut % (Auto) Lymph % (Auto) Potter % (Auto) Eos % (Auto) Baso % (Auto) Neut # (Auto) Lymph # (Auto) Potter # (Auto) Eos # (Auto) Baso # (Auto) Immature Gran # (Auto) RBC Morphology PT INR Sodium Potassium Chloride Carbon Dioxide Anion Gap BUN Creatinine Est Cr Clr Drug Dosing Est GFR ( Amer) Est GFR (Non-Af Amer) BUN/Creatinine Ratio Glucose POC Glucose 357 H* 415 H* 341 H* Calcium Total Bilirubin AST ALT Alkaline Phosphatase Total Protein Albumin Globulin Albumin/Globulin Ratio Random Vancomycin 01/30/23 01/30/23 01/30/23 05:43 05:43 05:43 WBC 11.89 H RBC 2.60 L Hgb 7.5 L Hct 23.2 L MCV 89.2 MCH 28.8 MCHC 32.3 RDW Std Deviation 40.9 RDW Coeff of Denise 12.7 Plt Count 598 H MPV 9.1 L Immature Gran % (Auto) 0.6 Neut % (Auto) 89.2 Lymph % (Auto) 4.8 Potter % (Auto) 5.0 Eos % (Auto) 0.0 Baso % (Auto) 0.4 Neut # (Auto) 10.60 H Lymph # (Auto) 0.57 L Potter # (Auto) 0.60 H Eos # (Auto) 0.00 Baso # (Auto) 0.05 Immature Gran # (Auto) 0.07 RBC Morphology Unremarkable PT 11.1 INR 1.0 Sodium 134 L Potassium 4.2 Chloride 101 Carbon Dioxide 25 Anion Gap 8 BUN 35 H Creatinine 0.96 D Est Cr Clr Drug Dosing 76.4 Est GFR ( Amer) 97.8 Est GFR (Non-Af Amer) 84.4 BUN/Creatinine Ratio 36.5 H Glucose 264 H POC Glucose Calcium 8.2 L Total Bilirubin 0.2 AST 13 ALT 18 Alkaline Phosphatase 136 H Total Protein 6.5 Albumin 2.6 L Globulin 3.9 Albumin/Globulin Ratio 0.7 L Random Vancomycin 01/30/23 01/30/23 05:43 07:31 WBC RBC Hgb Hct MCV MCH MCHC RDW Std Deviation RDW Coeff of Denise Plt Count MPV Immature Gran % (Auto) Neut % (Auto) Lymph % (Auto) Potter % (Auto) Eos % (Auto) Baso % (Auto) Neut # (Auto) Lymph # (Auto) Potter # (Auto) Eos # (Auto) Baso # (Auto) Immature Gran # (Auto) RBC Morphology PT INR Sodium Potassium Chloride Carbon Dioxide Anion Gap BUN Creatinine Est Cr Clr Drug Dosing Est GFR ( Amer) Est GFR (Non-Af Amer) BUN/Creatinine Ratio Glucose POC Glucose 204 H Calcium Total Bilirubin AST ALT Alkaline Phosphatase Total Protein Albumin Globulin Albumin/Globulin Ratio Random Vancomycin 20.7 H Microbiology 01/23/23 15:45 Blood Aerobic Blood Culture - Final No growth in Aerobic bottle after 5 days. 01/23/23 15:45 Blood Anaerobic Blood Culture - Final 01/23/23 13:05 Blood Aerobic Blood Culture - Final No growth in Aerobic bottle after 5 days. 01/23/23 13:05 Blood Anaerobic Blood Culture - Final No growth in Anaerobic bottle after 5 days. 01/23/23 Unknown Foot,Right Gram Stain - Final 01/23/23 Unknown Foot,Right Aerobic and Anaerobic Culture - Final Staph aureus MRSA 01/23/23 15:05 Foot Gram Stain - Final 01/23/23 15:05 Foot Aerobic and Anaerobic Culture - Final Staph aureus MRSA
--- NOTE | 2023-01-30 08:16 | Hospitalist Progress Note ---
Date of Service January 30, 2023 Assessment & Plan (1) Abscess of right foot: Plan: Recent admission 01/11 after nausea/vomiting/signs of infection at surgical site after being called w/ positive blood cultures for MSSA outpatient blood cultures Was admitted from 01/11 -- 01/19 and discharged on Ancef, but apparently was switched to Cefepime/Vanco at [facility] at some point and then changed back to Ancef on 01/22 with end date 01/24 Dr Collier, podiatry on consult 01/23/23 - s/p I&D Right foot, debridement of right foot. 01/29/23 - s/p Right 1st and 2nd toe amputation and placement of wound vac Continue Vanco Cx +MRSA I spoke with Dr Collier this AM who stated he did not achieve source control and also did not send cultures. I spoke with micro this AM and the specimen was already in formalin and unable to send cultures. I spoke with ID Dr Doe this AM and she states since there were no cultures and no source control, patient will need 72 hours of Vancomycin then 7 days of a Beta lactamase plus Doxycycline Patient interested in hyperbaric O2 treatments, discussed after surgery could help w/ wound healing but would not be appropriate to treat deeper infection (2) MSSA bacteremia: Plan: Was being treated with Cefepime and Ancef at [facility] , per pharmacy switched to Ancef 01/22 ECHO last admit NEGATIVE for endocarditics Continue Vanco, dc Zosyn as above. WBC count stable in 11K range ID consulted Final BCx no growth See above note regarding antibiotics (3) Thrombocytosis: Plan: Has been ongoing since last admission, initial workup had been negative Likely reactive due to his acute infection B12 low last month, will place on IM injections while inpatient consider reaching out to Dr Beavers if needed Also iron panel checked w/ ADOLFO, PO supplementation for now over IV given current infection/prevention dextrose containing IV given his blood sugars Improving w/ abx treatment Monitor CBC PLT stable 598 (4) Poorly controlled type 1 diabetes mellitus: Plan: A1c 8.6 Pharmacy consulted and their assistance appreciated for tighter control. Did have lows last admission and likely was not as aggressive due to such but good appetite reported and eating well/moving bowels and suggest tighter control w/ benefit Monitor BSGs (5) Opioid abuse: Plan: Hx of such APAP/dilaudid Increased IV dilaudid to 1mg q4H as needed for severe pain 7-10/10 Continue Oxy 10mg q4H as needed moderate pain Continue Toradol 15mg IV q6H prn Moving bowels, +BS on exam Monitor for increased need for bowel regimen If no BM today will add suppository (6) Dyslipidemia: Plan: Chronic and stable Continue statin (7) Depression: Plan: Chronic/stable - continue sertraline daily which is continued, however some depression about need for amputation of his foot/toes vs BKA. No HI/SI at present. Monitor (8) GERD (gastroesophageal reflux disease): Plan: chronic/stable Continue protonix (9) Hypertension: Plan: Initially hypertensive with systolics in the 180s's, likely due to pain Is not on antihypertensive therapy outpatient BP elevations 2nd to pain, but stable and no headache/cp/sob/blurry vision or headache reported BP today 138/73 (10) Peripheral arterial disease: Plan: vascular consulted, minimal disease and no intervention. s/p amputation first and second toes, wound vac placement podiatry following (11) Anemia: Plan: hgb in 7s on admit has remained stable during inpatient stay, no active bleeding mild drop in Hgb today to 7.5 with no signs of any active bleeding, likely multifactorial due to surgical blood loss and dilational B12 low in December and placed on B12 IM while inpatient (day 4/5) and continued. Folate was 15 Iron panel checked w/ iron LOW 11, transferrin low 163, trans % sat 7%. Ferritin not significantly elevated Will hold off IV venofer and schedule daily PO supplementation for now. If bcx remain negative can consider giving some IV venofer over PO to prevent issues w/ constipation if they occur however he has been moving his bowels Will continue to monitor CBC Plan continued inpatient stay, on Vanco which should cover for +MRSA cultures (per ID will need another 72 hours - can stop evening) Then will need oral betalactamase + doxycycline for an additional 7 days Admission and Anticipated Discharge Date Admission Date: January 23, 2023 Supervising Physician Co-Signing Physician Notes PA Supervision Note: I did not personally see or examine the patient. I verified all martinez points and agree with MAC Cali with the following exceptions and/or additions: Continued care of OM with IV antibiotics and care of amputations by Podiatry. Will schedule patient's Tylenol 1000mg q8h. Has ketorolac and oxycodone for more mild to moderate pain, with Dilaudid as needed for severe of breakthrough pain. History of opiate use disorder so will be more difficult to control his pain at baseline. Hgb 7.5 with history iron deficiency anemia and B12, continue to monitor for need for transfusion with iron/B12 support. Subjective POD #1 s/p right foot debridement, amputation 1st and 2nd toes and application of a wound vac placement I spoke with micro and unfortunately cultures were not ordered and the path is already in formalin and unable to obtain any cultures from surgery yesterday. Patient is awake laying in bed and askied for stronger pain medications he feels the 0.5mg IV Dilaudid is not completely covering his pain Review of Systems Review of Systems: Patient denies any chest pain, SOB, Dyspnea, cough or congestion. He denies any N/V or abdominal pain. He admits to pain right foot and states is more severe since his surgery and amputation Physical Exam Constitutional: WD/WN, vitals as above Respiratory: normal respiratory effort, lungs clear to auscultation Cardiovascular: RRR, no murmur, no edema Extremities: no calf tenderness and no edema Gastrointestinal (Abdomen): normal bowel sounds, soft, nontender, no hepatosplenomegaly Musculoskeletal: right foot with surgical dressing in place, clean and dry, wound vac in place minimal drainage in container s/p right 1st and 2nd toe amputation Psychiatric: A+Ox3, euthymic affect Results & Data Results & Data Vital Signs (Past 12 Hours) Vital Signs Temp Pulse Pulse Pulse Resp BP Pulse Ox 01/30/23 08:04 104 H 01/30/23 07:33 36.7 C 114 H 18 137/72 99 01/30/23 03:06 36.8 C 111 H 18 125/69 96 01/30/23 02:31 112 H 01/29/23 23:00 134 H 01/29/23 22:41 37.0 C 132 H 16 139/74 95 01/29/23 22:00 128 H 01/29/23 21:54 139 H 16 157/85 H 96 01/29/23 21:00 139 H 16 141/69 H 96 01/29/23 20:50 37.0 C 123 H 14 140/78 98 01/29/23 20:40 37.1 C 124 H 16 138/81 96 01/29/23 20:30 37.0 C 126 H 14 157/75 H 93 01/29/23 20:20 128 H 20 150/79 H 97 01/29/23 20:10 36.7 C 127 H 16 153/82 H 96 O2 Del Method 01/30/23 08:04 01/30/23 07:33 Room Air 01/30/23 03:06 Room Air 01/30/23 02:31 01/29/23 23:00 01/29/23 22:41 Room Air 01/29/23 22:00 01/29/23 21:54 Room Air 01/29/23 21:00 Room Air 01/29/23 20:50 Room Air 01/29/23 20:40 Room Air 01/29/23 20:30 Room Air 01/29/23 20:20 Room Air 01/29/23 20:10 Room Air Laboratory Results Abnormal lab results 01/29/23 01/29/23 01/29/23 Range/Units 11:58 14:09 14:10 WBC (4.8-10.8) K/ul RBC (4.70-6.10) M/uL Hgb (14.0-18.0) g/dl Hct (42.0-52.0) % Plt Count (130-400) K/uL MPV (9.4-12.4) fL Neut # (Auto) (1.40-6.50) K/uL Lymph # (Auto) (1.2-3.4) K/uL Glynn # (Auto) (0.11-0.59) K/uL Sodium (136-145) mmol/L BUN (6-23) mg/dl BUN/Creatinine Ratio (10-20) Glucose (70-99(Fasting)) mg/dl POC Glucose 104 H 68 L* 69 L* (70-99) mg/dl Calcium (8.6-10.3) mg/dl Alkaline Phosphatase (34-104) U/L Albumin (3.4-5.0) gm/dl Albumin/Globulin Ratio (0.9-2) Random Vancomycin (10-20) mcg/ml 01/29/23 01/29/23 01/29/23 Range/Units 14:43 19:14 21:13 WBC (4.8-10.8) K/ul RBC (4.70-6.10) M/uL Hgb (14.0-18.0) g/dl Hct (42.0-52.0) % Plt Count (130-400) K/uL MPV (9.4-12.4) fL Neut # (Auto) (1.40-6.50) K/uL Lymph # (Auto) (1.2-3.4) K/uL Glynn # (Auto) (0.11-0.59) K/uL Sodium (136-145) mmol/L BUN (6-23) mg/dl BUN/Creatinine Ratio (10-20) Glucose (70-99(Fasting)) mg/dl POC Glucose 127 H 128 H 184 H (70-99) mg/dl Calcium (8.6-10.3) mg/dl Alkaline Phosphatase (34-104) U/L Albumin (3.4-5.0) gm/dl Albumin/Globulin Ratio (0.9-2) Random Vancomycin (10-20) mcg/ml 01/29/23 01/30/23 01/30/23 Range/Units 22:31 01:49 01:51 WBC (4.8-10.8) K/ul RBC (4.70-6.10) M/uL Hgb 9.1 L (14.0-18.0) g/dl Hct 28.2 L (42.0-52.0) % Plt Count (130-400) K/uL MPV (9.4-12.4) fL Neut # (Auto) (1.40-6.50) K/uL Lymph # (Auto) (1.2-3.4) K/uL Glynn # (Auto) (0.11-0.59) K/uL Sodium (136-145) mmol/L BUN (6-23) mg/dl BUN/Creatinine Ratio (10-20) Glucose (70-99(Fasting)) mg/dl POC Glucose 415 H* 406 H* (70-99) mg/dl Calcium (8.6-10.3) mg/dl Alkaline Phosphatase (34-104) U/L Albumin (3.4-5.0) gm/dl Albumin/Globulin Ratio (0.9-2) Random Vancomycin (10-20) mcg/ml 01/30/23 01/30/23 01/30/23 Range/Units 03:45 03:49 03:52 WBC (4.8-10.8) K/ul RBC (4.70-6.10) M/uL Hgb (14.0-18.0) g/dl Hct (42.0-52.0) % Plt Count (130-400) K/uL MPV (9.4-12.4) fL Neut # (Auto) (1.40-6.50) K/uL Lymph # (Auto) (1.2-3.4) K/uL Glynn # (Auto) (0.11-0.59) K/uL Sodium (136-145) mmol/L BUN (6-23) mg/dl BUN/Creatinine Ratio (10-20) Glucose (70-99(Fasting)) mg/dl POC Glucose 357 H* 415 H* 341 H* (70-99) mg/dl Calcium (8.6-10.3) mg/dl Alkaline Phosphatase (34-104) U/L Albumin (3.4-5.0) gm/dl Albumin/Globulin Ratio (0.9-2) Random Vancomycin (10-20) mcg/ml 01/30/23 01/30/23 01/30/23 Range/Units 05:43 05:43 05:43 WBC 11.89 H (4.8-10.8) K/ul RBC 2.60 L (4.70-6.10) M/uL Hgb 7.5 L (14.0-18.0) g/dl Hct 23.2 L (42.0-52.0) % Plt Count 598 H (130-400) K/uL MPV 9.1 L (9.4-12.4) fL Neut # (Auto) 10.60 H (1.40-6.50) K/uL Lymph # (Auto) 0.57 L (1.2-3.4) K/uL Glynn # (Auto) 0.60 H (0.11-0.59) K/uL Sodium 134 L (136-145) mmol/L BUN 35 H (6-23) mg/dl BUN/Creatinine Ratio 36.5 H (10-20) Glucose 264 H (70-99(Fasting)) mg/dl POC Glucose (70-99) mg/dl Calcium 8.2 L (8.6-10.3) mg/dl Alkaline Phosphatase 136 H (34-104) U/L Albumin 2.6 L (3.4-5.0) gm/dl Albumin/Globulin Ratio 0.7 L (0.9-2) Random Vancomycin 20.7 H (10-20) mcg/ml 01/30/23 Range/Units 07:31 WBC (4.8-10.8) K/ul RBC (4.70-6.10) M/uL Hgb (14.0-18.0) g/dl Hct (42.0-52.0) % Plt Count (130-400) K/uL MPV (9.4-12.4) fL Neut # (Auto) (1.40-6.50) K/uL Lymph # (Auto) (1.2-3.4) K/uL Glynn # (Auto) (0.11-0.59) K/uL Sodium (136-145) mmol/L BUN (6-23) mg/dl BUN/Creatinine Ratio (10-20) Glucose (70-99(Fasting)) mg/dl POC Glucose 204 H (70-99) mg/dl Calcium (8.6-10.3) mg/dl Alkaline Phosphatase (34-104) U/L Albumin (3.4-5.0) gm/dl Albumin/Globulin Ratio (0.9-2) Random Vancomycin (10-20) mcg/ml PG Care Time/CCT Total # of Minutes Spent Total Time Spent with Patient: Total time spent is greater than 50% in coordination of care (as documented) at patient's floor/unit and/or counseling patient: Coding Level of Care Code 57604 SUB INP/OBS CARE 3/50MIN Diagnoses Abscess of right foot L02.611 MSSA bacteremia R78.81; B95.61 Thrombocytosis D75.839 Poorly controlled type 1 diabetes mellitus E10.65 Opioid abuse F11.10 Dyslipidemia E78.5 Depression F32.A GERD (gastroesophageal reflux disease) K21.9 Hypertension I10 Peripheral arterial disease I73.9 Anemia D64.9
[2023-01-30] MEDS: INSULIN ASPART PER UNIT CHARGE SC SCH ×4 (08:31→21:06)
[2023-01-30] MEDS: LANTUS PER UNIT CHARGE SQ SCH (08:33)
[2023-01-30] MEDS: FAMOTIDINE 20 MG TAB PO SCH ×2 (08:44→21:06)
[2023-01-30] MEDS: oxyCODONE HCL IR 5 MG TAB (IMMEDIATE RELEASE) PO PRN ×2 (08:44→21:03)
[2023-01-30] MEDS: SERTRALINE HCL 100 MG TABLET PO SCH (08:44)
[2023-01-30] MEDS: FERROUS SULFATE 325 MG TAB PO SCH (08:44)
[2023-01-30] MEDS: ATORVASTATIN 40 MG TAB PO SCH (08:44)
[2023-01-30] MEDS: GABAPENTIN 300 MG CAP PO SCH ×3 (08:44→21:06)
[2023-01-30] MEDS: PANTOprazole 40 MG TAB PO SCH (08:44)
[2023-01-30] MEDS: DOCUSATE SODIUM/SENNA 50/8.6MG TAB PO SCH (08:44)
[2023-01-30] MEDS: POLYETHYLENE (MIRALAX) 17 GM PACK PO SCH ×2 (08:44→21:06)
--- NOTE | 2023-01-30 09:26 | Pharmacy Report ---
Pharmacy PK ABX Note - Date of Service January 30, 2023 - Assessment and Plan Assessment 01/30: * Day #7 of vancomycin therapy * Patient went to OR yesterday and had R foot 1st toe/2nd toe amputation. * Patient continues with slight leukocytosis, however afebrile. ID following and recommending continuing. Will follow to see if cultures sent yesterday 01/28: * Day #5 of vancomycin therapy. * Afebrile. White count at 11k today. SCr did improve today but remains at baseline for this patient (0.70 --> 0.67 --> 0.51). CRP showed improvement as well (10.5 --> 5.12). Await ID input on Sunday (01/29/23). * Random level today was therapeutic on current dose but expected to be subtherapeutic in 48 hours. Therefore, planning to increase the dose starting this evening. 01/26: * Right foot culture now growing MRSA. Improved leukocytosis (18 K -> 11 K). Blood cultures show no growth at 48 hours. Renal function stable. * Per ortho, patient likely to require partial amputation of right foot. 01/24: * 62 year old M receiving vancomycin and Zosyn for treatment of right foot infection concerning for abscess and osteomyelitis. Patient was recently discharged from [facility] to [facility] on 01/19. During this past admission, he was found to have MSSA bacteremia and treated with cefazolin per ID. This was ultimately broadened to vancomycin and cefepime due to persistent leukocytosis, slow improvement, and high risk of osteomyelitis to nearby bone. Patient was discharged to rehab on this regimen. Confirmed this morning with [facility] that patient received vancomycin and cefepime until 01/22 when it was changed to cefazolin monotherapy again per ID. Patient readmitted last evening due to worsening of infection and underwent right foot I&D w/ wound debridement. Cultures obtained. Broad spectrum antibiotics appropriate at this time. Plan Vancomycin * Current regimen: 1250 mg iv q 12 * Bump in Scr from yesterday to today - from 0.6 mg/dL to ~0.9 mg/dL - Random vancomycin level this morning was 20 mcg/ml. This current vancomycin dosing is predicted to achieve AUC/RAJESH >600 mg/L.hr therefore will adjust dosing * Will change to vancomycin 1250 mg iv q 18 hours for now until Scr improves. This dosing is predicted to achieve AUC/RAJESH of 400-600 and to produce trough of ~16 mcg/ml * Will follow renal function closely and will consider rechecking vancomycin level tomorrow if renal function is changing Pharmacy will continue to follow and will adjust dose/frequency as necessary. Thank you. Pharmacy has transitioned to AUC monitoring for vancomycin. AUC/RAJESH is the preferred PK/PD target and is associated with decreased risk of nephrotoxicity compared to traditional trough targets.
[2023-01-30] MEDS: VANCOMYCIN HCL 1,250 MG in SODIUM CHLORIDE 0.9% 250 ML IV SCH (09:50)
--- NOTE | 2023-01-30 10:11 | Pharmacy Report ---
Pharmacy Glycemic Short Note 2 - Date of Service January 30, 2023 - Glycemic Short BSG Results (Last 24 hours): 01/29/23 01/29/23 01/29/23 11:58 14:09 14:10 Glucose POC Glucose 104 H 68 L* 69 L* 01/29/23 01/29/23 01/29/23 14:11 14:43 16:50 Glucose POC Glucose 72 127 H 93 01/29/23 01/29/23 01/29/23 17:30 19:14 21:13 Glucose POC Glucose 77 128 H 184 H 01/30/23 01/30/23 01/30/23 01:49 01:51 03:45 Glucose POC Glucose 415 H* 406 H* 357 H* 01/30/23 01/30/23 01/30/23 03:49 03:52 05:43 Glucose 264 H POC Glucose 415 H* 341 H* 01/30/23 07:31 Glucose POC Glucose 204 H OUTPATIENT ANTIDIABETIC REGIMEN: * Per most recent endocrinology note/special education paraeducator note from past admission in December 2022 * Lantus 25 units SC qAM * Novolog 5-6 units SC TID w/ meals (patient reports missing these doses often) * Plan appears to be for patient to transition to insulin pump * HbA1c: 9.4% (12/22/22) ASSESSMENT: 01/30/23 * Patient received total of 33 units of insulin yesterday, of which 23 units were basal insulin * Fasting BSG 204 mg/dL - elevated overnight, appears steroids given in OR yesterday evening * Provider ordering supplemental insulin overnight and this morning. Had RN only cover carbs this morning as concerns for overcorrecting * Plan to continue same basal insulin for now 01/29/23 * Patient received total of 53 units of insulin yesterday, of which 23 units were basal insulin * Fasting BSG 296 mg/dL - will continue with 23 units of basal for this AM. Patient NPO this morning for OR (R foot debridement/wound vac) * Lunch BSG trending down, BSG low this afternoon at 68 mg/dL - given 1/2 amp dextrose * Patient has not yet gone to OR today, unsure what time he will be going this afternoon/evening * I did notify provider of lower BSG this afternoon and recommended adding on some dextrose fluids if BSGs trend down this evening 01/28/23 * BSGs yesterday were 220-351-238-223 mg/dL. Patient received 49 units of insulin (22 units of basal and 27 units of bolus). * Fasting today is 249 mg/dL. * Fasting is trending down but still elevated. It appears patient requires roughly 50 units of insulin per day? So will increase basal to 23 units today with expectation that patient may truly require 24-25 units/day (home dose is 25 units) * For Novolog, continue tighter scale at breakfast. Tighten CR for the rest of the day. Patient's HS BSG check is always elevated so patient most likely requires more carbohydrate coverage at dinner. 01/26/23: * BSGs elevated yesterday, ranging 189-299 mg/dL * Received 20 units of basal and 30 units of Novolog * Will increase Lantus to 22 units today and tighten breakfast Novolog further * May require tightening of Novolog at lunch, dinner, HS, but will hold off one more day as prior lows were observed last admission w/ tighter coverage * Tighten goal range to 110-140 mg/dL today 01/24/23: * is a 62 year old male known to pharmacy glycemic consult from recent prior admission last week * Readmitted for worsening right foot infection w/ abscess/osteomyelitis * BSGs extremely labile last admission w/ frequent episodes of hyper/hypoglycemia * Pharmacy consulted at lunchtime for BSG > 400 mg/dL * Prior to consult, patient received 5 units of Lantus. Will give additional 15 units to equal 20 units for the day, which was reasonable last admission. * Will utilize parameters similar to last admission to start PLAN FOR INPATIENT GLYCEMIC CONTROL: * Basal insulin * Lantus 23 units SC daily * Bolus insulin * NovoLog per scale ACHS or Q6hrs while NPO * Goal Range: Low 110 mg/dL - High 140 mg/dL * Correction Factor: 30 mg/dL/unit at breakfast and 45 mg/dL/unit at lunch, dinner, and HS * Nutritional / Prandial insulin per carb ratio of 1 unit per 10 grams CHO consumed at breakfast and 15 grams CHO consumed at lunch, dinner, HS
[2023-01-30] MEDS ORDERED: HYDROmorphone INJ 0.5 MG/0.5 ML SYR IV PRN (10:55)
[2023-01-30] MEDS: ACETAMINOPHEN 500 MG TAB PO SCH ×2 (16:13→21:10)
[2023-01-30] MEDS: ENOXAPARIN INJ 40 MG/0.4 ML SYR SQ SCH (18:07)
--- NOTE | 2023-01-30 20:44 | Orthopedic Progress Note ---
Date of Service January 30, 2023 Assessment & Plan (1) Diabetic infection of right foot: Plan: Patient, seen, evaluated. Patient status post day #1 partial amputation right foot with application of wound vac. Wound vac to be changed M, W, F by wound nurse. Spoke with wound nurse. Will continue to evaluate while in house. Discussed need for extended Abx coverage upon discharge. (2) Poorly controlled type 1 diabetes mellitus: (3) Peripheral arterial disease: Admission and Anticipated Discharge Date Admission Date: January 23, 2023 Subjective Patient seen at bedside resting comfortably. He is sleeping but awakens for brief conversation. He has no complaints. Review of Systems Review of Systems: All systems reviewed & are unremarkable except as noted in Subjective Results & Data Vital Signs (Past 12 Hours) Vital Signs Temp Pulse Pulse Resp BP Pulse Ox O2 Del Method 01/30/23 19:34 36.9 C 111 H 16 137/63 96 Room Air 01/30/23 18:55 103 H 01/30/23 15:22 36.9 C 103 H 18 140/76 99 Room Air 01/30/23 11:26 37.0 C 114 H 18 138/73 94 Room Air
[2023-01-31] MEDS: HYDROmorphone INJ 0.5 MG/0.5 ML SYR IV PRN ×2 (03:17→08:05)
[2023-01-31] MEDS ORDERED: VANCOMYCIN HCL 1,250 MG in SODIUM CHLORIDE 0.9% 250 ML IV SCH (04:00)
[2023-01-31] MEDS: ACETAMINOPHEN 500 MG TAB PO SCH (05:04)
[2023-01-31] MEDS: oxyCODONE HCL IR 5 MG TAB (IMMEDIATE RELEASE) PO PRN ×2 (06:14→11:51)
[2023-01-31 06:28] LABS: Hematocrit (blood only) 23.4 % (42.0-52.0); Hemoglobin 7.7 g/dl (14.0-18.0); Mean Corpuscular Hemoglobin 29.2 pg (25.0-34.0); Mean Corpuscular Hgb Conc 32.9 g/dL (32.0-36.0); Mean Corpuscular Volume 88.6 fL (80.0-100.0); Mean Platelet Volume 9.1 fL (9.4-12.4); Platelet Count 614 K/uL (130-400); RDW Coefficient of Variation 12.8 % (11.5-14.5); RDW Standard Deviation 41.3 fL (36.4-46.3); Red Blood Count 2.64 M/uL (4.70-6.10); White Blood Count 9.96 K/ul (4.8-10.8)
[2023-01-31 06:46] LABS: BUN Creatinine Ratio 31.8 (10-20); Calcium 8.4 mg/dl (8.6-10.3); Creatinine Clr Calc Pharmacy 93.5 ml/min; Est GFR (African American) 108.2 ml/min; Est GFR (Non-African American) 93.4 ml/min; Magnesium 1.8 mg/dl (1.7-2.4); Potassium 4.4 mmol/L (3.5-5.1)
[2023-01-31] MEDS ORDERED: INSULIN ASPART PER UNIT CHARGE SC SCH ×2 (07:30→11:30)
[2023-01-31] MEDS: GABAPENTIN 300 MG CAP PO SCH (08:09)
[2023-01-31] MEDS: FAMOTIDINE 20 MG TAB PO SCH (08:09)
[2023-01-31] MEDS: DOCUSATE SODIUM/SENNA 50/8.6MG TAB PO SCH (08:10)
[2023-01-31] MEDS: ATORVASTATIN 40 MG TAB PO SCH (08:10)
[2023-01-31] MEDS: PANTOprazole 40 MG TAB PO SCH (08:10)
[2023-01-31] MEDS: POLYETHYLENE (MIRALAX) 17 GM PACK PO SCH (08:10)
[2023-01-31] MEDS: FERROUS SULFATE 325 MG TAB PO SCH (08:10)
[2023-01-31] MEDS: SERTRALINE HCL 100 MG TABLET PO SCH (08:11)
[2023-01-31] MEDS ORDERED: LANTUS PER UNIT CHARGE SQ SCH (09:00)
--- NOTE | 2023-01-31 10:09 | Discharge Summary ---
Date of Service January 31, 2023 Admission HPI Per Admitting Provider Austen is a 62 year old male with a PMH significant for poorly controlled DM I, HTN, hyperlipidemia, memory deficit, chronic pain with opioid abuse, and recent MSSA bacteremia due to post-operative right foot infection with Dr. Collier who presented to the [facility] ED on 01/23/23 for concerns for worsening right foot infection. The patient was admitted to [facility] from 01/11-01/19 for the bacteremia and foot infection. Echo during the admission was negative for endocarditis, cultures from [facility] were MSSA positive but MRSA negative. Dr. Collier took him to the OR on 01/15 and removed the external fi xator hardware. He was discharged to [facility] on Vancomycin and Cefepime with an end date of 01/24. Today he was noted to be hypertensive at 182/91, tachycardic at 106, otherwise stable. Labs are significant for a leukocytosis at 18, with left shift of 15, platelets of 548, ESR of 74, AST of 62, alk phos of 220. CT of the foot with IV con today shows progression of the right foot infection with concerns for abscess formation and OM. At the time of the exam the patient was lying in bed in no acute distress with his sitting bedside. They state that the patient was initially doing well on discharge. Reportedly this am it was noticed that his infection had significantly progressed and his right foot was cool and discolored in the distal areas. The patient was initially going to be seen in clinic with Dr. Collier today but the decision was made to send him directly to the ED. While at [facility] the patient's Vancomycin had been deescalated to Cefazolin, he was continued on Cefepime. His pain is currently an 8/10 after receiving 0.5 mg IV Dilaudid before my exam. Please refer to Dr. Juares's attestation for any changes to the treatment plan Admission Exam Per Admitting Provider Physical Exam: General:In no acute distress, stated age, non-toxic appearing HEENT:Normocephalic, atraumatic, no scleral icterus, pupils around round,symmetrical, and reactive to light,moist mucus membranes, trachea midline, no thyromegaly Chest/Pulm:No respiratory distress, symmetrical chest expansion, clear breath sounds throughout Cardiac:RRR, no murmurs noted Abdomen:Negative for ascites and bruising, normoactive bowel sounds, soft, non- tender to palpation throughout Musculoskeletal:RLE significantly swollen with multiple areas of pustulous drainage on the superior aspect of the foot, patient currently with minimal ROM of the right foot and toes, Extremities:Radial, dorsalis pedis,and posterior tibial pulses are intact in the LLE; patient with intact PT pulse in the RLE, DP pulse on theright foot is difficult to palpate due to significantswelling Skin:Darkened skinon the right great toe,distal aspect of the right foot, erythema notedon the proximal right foot running to the right ankle, no other signs of tracking noted Neuro:Alert and oriented to person,place, month, year, and president,no focal defects, CN II-XII tested and intact, baseline left foot drop noted Psych:No acute distress,calm and cooperative during the exam Principal Diagnosis abscess right foot/osteomyelitis MSSA bacteremia Discharge Exam Constitutional WD/WN, vitals as above Respiratory normal respiratory effort, lungs clear to auscultation Cardiovascular RRR, no murmur, no edema Extremities: no calf tenderness and no edema Gastrointestinal (Abdomen) normal bowel sounds, soft, nontender, no hepatosplenomegaly Skin wound vac and surgical dressing over right foot c/d/i PT pulses +2 symmetric Psychiatric A+Ox3, euthymic affect Discharge Data Allergies Allergy/AdvReac Type Severity Reaction Status Date / Time pantoprazole [From Protonix] AdvReac Vomiting Verified 01/11/23 16:16 Consultations 01/23/23 20:29 ED Decision to Admit Stat 01/23/23 20:30 Consult Orthopedic Surgery Routine Consult Vascular Surgery Routine 01/24/23 08:06 Consult Vascular Surgery Routine 01/24/23 11:32 Consult Infectious Diseases Routine Procedures Performed Operation Date: 01/29/23 10:30 Actual Procedures p right 1st and 2nd toe amputation, Wound Vac Placement(Right) - Baltazar Collier DPM, MS Ordered Studies 01/23/23 15:54 CT foot RT w con Stat IMPRESSION: Again seen are extensive fractures throughout the tarsal and metatarsal bones as above. There is increasing bony fragmentation/displacement with erosive change throughout the mid foot as detailed above, with a large gas and fluid collection containing interdigitating around these bones along the plantar aspect of the midfoot. This is highly suspicious for infection, likely representing extensive osteomyelitis with a large multiloculated abscess. 01/24/23 08:52 US arterial duplex LE BI Urgent IMPRESSION: Atherosclerotic plaque with evidence of peripheral vascular disease as above. There is no sonographic evidence of high-grade stenosis or focal vessel cutoff throughout the arteries of the right or left lower extremity. Hospital Course (1) Abscess of right foot: Recent admission 01/11 after nausea/vomiting/signs of infection at surgical site after being called w/ positive blood cultures for MSSA outpatient blood cultures Was admitted from 01/11 -- 01/19 and discharged on Ancef, but apparently was switched to Cefepime/Vanco at [facility] at some point and then changed back to Ancef on 01/22 with end date 01/24 Dr Collier, podiatry on consult 01/23/23 - s/p I&D Right foot, debridement of right foot. 01/29/23 - s/p Right 1st and 2nd toe amputation and placement of wound vac Continue Vanco Cx +MRSA I spoke with Dr Collier who stated he did not achieve source control and also did not send cultures. I spoke with micro this AM and the specimen was already in formalin and unable to send cultures. I spoke with ID Dr Doe this AM and she states since there were no cultures and no source control, patient will need 72 hours of Vancomycin then 7 days of a Beta lactamase plus Doxycycline Patient will need IV Vanco at 2300 and then tomorrow at 1700 then Sunday start po Augementin 875 mg BID and Doxycycline 100mg BID for 7 days Patient interested in hyperbaric O2 treatments, discussed after surgery could help w/ wound healing but would not be appropriate to treat deeper infection (2) MSSA bacteremia: Was being treated with Cefepime and Ancef at [facility] , per pharmacy switched to Ancef 01/22 ECHO last admit NEGATIVE for endocarditics Continue Vanco, dc Zosyn as above. WBC count stable in 11K range ID consulted Final BCx no growth See above note regarding antibiotics (3) Thrombocytosis: Has been ongoing since last admission, initial workup had been negative Likely reactive due to his acute infection B12 low last month, will place on IM injections while inpatient consider reaching out to Dr Beavers if needed Also iron panel checked w/ ADOLFO, PO supplementation for now over IV given current infection/prevention dextrose containing IV given his blood sugars Improving w/ abx treatment (4) Poorly controlled type 1 diabetes mellitus: A1c 8.6 Pharmacy consulted and their assistance appreciated for tighter control. Did have lows last admission and likely was not as aggressive due to such but good appetite reported and eating well/moving bowels and suggest tighter control w/ benefit Monitor BSGs (5) Opioid abuse: Hx of such Continue Oxy 10mg q4H as needed moderate pain Moving bowels, +BS on exam Monitor for increased need for bowel regimen If no BM today will add suppository (6) Dyslipidemia: Chronic and stable Continue statin (7) Depression: Chronic/stable - continue sertraline daily which is continued, however some depression about need for amputation of his foot/toes vs BKA. No HI/SI at present. Monitor (8) GERD (gastroesophageal reflux disease): chronic/stable Continue protonix (9) Hypertension: Initially hypertensive with systolics in the 180s's, likely due to pain Is not on antihypertensive therapy outpatient BP elevations 2nd to pain, but stable and no headache/cp/sob/blurry vision or headache reported (10) Peripheral arterial disease: vascular consulted, minimal disease and no intervention. s/p amputation first and second toes, wound vac placement podiatry following (11) Anemia: hgb in 7s on admit has remained stable during inpatient stay, no active bleeding mild drop in Hgb today to 7.5 with no signs of any active bleeding, likely multifactorial due to surgical blood loss and dilational B12 low in December and placed on B12 IM while inpatient (day 4/5) and continued. Folate was 15 Iron panel checked w/ iron LOW 11, transferrin low 163, trans % sat 7%. Ferritin not significantly elevated Will hold off IV venofer and schedule daily PO supplementation for now. If bcx remain negative can consider giving some IV venofer over PO to prevent issues w/ constipation if they occur however he has been moving his bowels Will continue to monitor CBC Plan continued inpatient stay, on Vanco which should cover for +MRSA cultures (per ID will need another 72 hours - can stop evening) Then will need oral betalactamase + doxycycline for an additional 7 days Total Time Total Time Spent Total Time Spent (In Minutes): 40 Discharge Plan Discharge Items Patient Disposition: Transfer Inpatient Rehab Fac Reason For Visit: WORSENING FOOT INFECTION Discharge Diagnosis: abscess right foot - infected diabetic wound PAD MSSA bacteremia Condition on Discharge: Fair Activity: Per Instructions section Weightbearing: Right non-weightbearing Non-emergency contact: Primary Care Provider and Surgeon Call non-emergency contact if: you have any medication questions, your symptoms worsen, your temperature is above 101.5, your wound has increased redness and yo ur wound has increased drainage Follow-up/Referrals: Mohit Rodriguez MD [Primary Care Provider] - Diet: Carb Count or DM1 and Heart Healthy Addtl Attending Provider Instructions: You were admitted with worsenign infection of right foot and found to have infection inyour blood. You were evaluated by your weatherstrip machine operator Dr Collier and were taken to the OR 01/29/23 and had partial amputation of the right foot with wound debridement and placement of a wound vac. You were treated with IV Vancomycin and sen by Infectious Disease who suggested wound cultures and pathology if source control was not obtained. Source control was not obtained with surgery and ID recommened since ther was no cultures to do 72 hours more of the IV Vanco and then 7 days of oral Augmentin and Doxycycline. You are being discharged to [facility] for more inpatient therapy before being able to return home safely. Pending Studies at Discharge: Yes Studies:: Pathology of toe amputation Stand-Alone Forms: My [facility] Skilled Items Patient informed of condition?: Yes DNR: No Discharge Level of Care: Acute rehab Communicable Disease: No Discharge Prognosis: Stable Lines: Peripheral IV Urinary Catheter: No Medications and DC Order Prescriptions: New ferrous sulfate 325 mg (65 mg iron) Tablet,Delayed Release (Dr/Ec) 325 mg PO QAM Qty: 0 0RF amoxicillin-pot clavulanate 875-125 mg tablet 1 tab PO BID Qty: 14 0RF doxycycline hyclate 100 mg capsule 100 mg PO BID 7 Days Qty: 14 0RF Continued (DME) Omnipod 5 G6 Intro Kit (Gen 5) Cartridge See Rx Instructions .Route Qty: 1 0RF Rx Instructions: Change pod every 3 days (DME) Omnipod 5 G6 Pods (Gen 5) Cartridge See Rx Instructions .Route Qty: 10 11RF Rx Instructions: Change pod every 3 days atorvastatin 40 mg tablet 40 mg PO DAILY Medical Marijuana 1 dose inhalation DIRECTED PRN (Reason: NEEDED) oxycodone 15 mg Tablet 15 mg PO Q6H PRN (Reason: Breakthrough Pain) (DME) pen needle,diabetic, disp unit 32 gauge x 1/4" needle See Rx Instructions .Route Qty: 100 0RF Rx Instructions: As directed testosterone cypionate 200 mg/mL oil 200 mg IM WK Rx Instructions: on hold- Pt hasn't had med for over one year per spouse 01/23/2023 aspirin 81 mg Tablet,Delayed Release (Dr/Ec) 81 mg PO QPM esomeprazole magnesium [Nexium] 40 mg capsule,delayed release(DR/EC) 40 mg PO QAM oxycodone [OxyContin] 15 mg tablet,oral only,ext.rel.12 hr 15 mg PO Q12 sertraline 100 mg tablet 100 mg PO QAM insulin glargine [Lantus U-100 Insulin] 100 unit/mL Solution 20 unit subcut DAILY Qty: 10 0RF polyethylene glycol 3350 [Miralax] 17 gram Powder In Packet 17 g PO BID Qty: 60 0RF sennosides-docusate sodium [Senokot-S] 8.6-50 mg Tablet 1 tab PO QAM Qty: 30 0RF acetaminophen [Tylenol Extra Strength] 500 mg Tablet 1,000 mg PO TID Qty: 90 0RF gabapentin 300 mg Capsule 300 mg PO TID Qty: 90 0RF insulin aspart U-100 100 unit/mL (3 mL) insulin pen 1 unit subcut 0730 Qty: 15 0RF Rx Instructions: -Goal BSG Range: Low 110 mg/dL, High 140 mg/dL --Correction Factor: 25 mg/dL/unit --Carbohydrate ratio = 9 g/unit --BSGs ACHS if eating, q6h if npo insulin aspart U-100 100 unit/mL (3 mL) insulin pen 1 unit subcut 1130,1630,2100 Qty: 15 0RF Rx Instructions: --Goal BSG Range: Low 120 mg/dL, High 160 mg/dL --Correction Factor: 45 mg/dL/unit --Carbohydrate ratio = 15 g/unit --BSGs ACHS if eating, q6h if npo Changed vancomycin 1.25 gram recon soln 1.25 g IV Q18H Qty: 10 0RF Rx Instructions: last dose 01/24 please check trough dose with sunday am dose Discontinued cefepime 1 gram recon soln 1 g IM Q8H Qty: 15 0RF Discharge Orders: Discharge Order (Routine); Ordered 01/31/23 Ordered By: Jennifer Cali Admission Data Admit Date/Time: 01/23/23 20:21 Attending Provider: Argelia Nichols Admit Provider: Arcelia Juares Primary Care Provider: Mohit Rodriguez Other Providers: Duke Dailey ; [facility] ; Arcelia Juares ; Baltazar Collier ; Kyra Wright ; Jonatan Baca ; Areli Boogie ; Dejan Joy ; Fanny Coates ; Stefanie Doe ; Chelsey Matta ; Uma Duran ; Susannah Mederos Other Interventions: Discharge Summary Assessment (RN) Last Done: 01/31/23 11:15 Supervising Physician Co-Signing Physician Notes PA Supervision Note: I personally saw and examined the patient. I verified all martinez points and agree with MAC Cali with the following exceptions and/or additions: Subjective: 62-year-old male past medical history significant for uncontrolled type 1 diabetes on insulin therapy, GERD, diabetic infection of right foot presented for worsening foot infection, now status post partial amputation of right foot with application of wound VAC. Was initially on Vanco/Zosyn, Zosyn was discontinued as cultures determined to be MRSA Physical exam: Vitals reviewed Gen: Alert and oriented, NAD HEENT: anicteric sclerae, EOMI CV: RRR no mgr nl S1S2 Pulm: CTAB no wcr Abd: +BS soft NT ND no masses Ext: no edema, 2+ DP pulses Skin: no rashes, warm/dry Neuro: No focal neurologic deficits Labs, Rads, and ECG reviewed Assessment and Plan: Diabetic foot wound: S/p partial amputation of the right foot with application of wound VAC performed by Dr. Collier on 01/29/2023. Patient will go on vancomycin-->Augmentin/Doxy per ID recommendations, with continued wound care by [facility] facility. Follow-up with podiatry per their service. Anemia: History of, with hemoglobin of 78 during this admission, has a history of B12 deficiency and was also noted on lab work this admission to have iron deficiency. Continue B12 and iron supplementation, did not require blood transfusion this admission. Continue monitoring per primary care provider. DM1: Most recent A1c 8.6%, received basal bolus insulin while admitted, continued management per diabetes provider outpatient, including insulin adjustment/dietary education. Plan otherwise as described above. Coding Level of Care Code 24361 INP/OBS DISCH >30 MIN Diagnoses Abscess of right foot L02.611 MSSA bacteremia R78.81; B95.61 Thrombocytosis D75.839 Poorly controlled type 1 diabetes mellitus E10.65 Opioid abuse F11.10 Dyslipidemia E78.5 Depression F32.A GERD (gastroesophageal reflux disease) K21.9 Hypertension I10 Peripheral arterial disease I73.9 Anemia D64.9
== END 2023-01-31 12:37 | DRG 857 ==
LOC: ED 14:24 → OR 20:20 → SUATTDRO 20:21 → 2W 20:21